=== PATIENT | male | born 1955 | race Caucasian/White ===

== ENCOUNTER 2018-01-31 18:44 | Observation (INO) | payer OTHER ==
--- OUTSIDE RECORDS SUMMARY | 2018-01-31 18:47 | XMS REPORT ---
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 Active Problem Unspecified essential hypertension 401.9 Active Problem Unspecified hypothyroidism 244.9 Active Problem Diabetes mellitus without mention 250.00 Active of complication, type II or unspecified type, not stated as uncontrolled Problem Hemorrhage of gastrointestinal 578.9 Active tract, unspecified Problem Low back pain M54.5 Active Problem Diabetes mellitus without mention 250.02 Active of complication, type II or unspecified type, uncontrolled Problem Gastro-esophageal reflux disease K21.0 Active with esophagitis Problem Malignant neoplasm of thyroid 193 Active gland Problem Hyperlipidemia, unspecified E78.5 Active Problem Chronic kidney disease, N18.9 Active unspecified Problem Unspecified superficial injury of S90.921A Active right foot, initial encounter Problem Other cerebrovascular disease I67.89 Active Problem Anxiety disorder, unspecified F41.9 Active Problem Atrial fibrillation 427.31 Active Problem Coronary atherosclerosis of [place] 414.01 Active coronary artery Problem Idiopathic gout, unspecified site M10.00 Active Problem Hyperlipidemia 272.4 Active Problem Persistent atrial fibrillation I48.1 Active Problem Left ventricular failure I50.1 Active Problem Sleep apnea, unspecified G47.30 Active Problem Obstructive sleep apnea (adult) G47.33 Active (pediatric) Problem Hypertrophy (benign) of prostate 600.00 Active without urinary obstruction and other lower urinary tract symptoms [LUTS] Problem Chronic kidney disease, Stage III 585.3 Active (moderate) Problem GERD 530.11 Active Problem Unspecified sleep apnea 780.57 Active Problem Hypothyroidism, unspecified E03.9 Active Problem Chronic kidney disease, stage 3 N18.3 Active (moderate) Problem 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 Problem Type 2 diabetes mellitus with E11.65 Active hyperglycemia Medications Medication Code Code Instructions Start End Status Dosage System Date Date Sotalol HCl [facility] 97276209360 120 MG Orally Active 1 tablet every 12 hrs Allopurinol [facility] 44436718296 100 Once a day August Active TAKE ONE 20, TABLET BY 2018 MOUTH DAILY Cialis [facility] 59206060620 10 MG Orally Active 1 tablet every 24 hrs Escitalopram [facility] 02060317963 20 MG Orally Active TAKE ONE Oxalate Once a day TABLET BY MOUTH DAILY Lexapro [facility] 54410836122 20 Active TAKE ONE TABLET BY MOUTH DAILY Sotalol HCl [facility] 65360103616 80 MG Orally Active TAKE two every 12 hrs TABLET BY MOUTH TWICE A [facility] 10 Active TAKE ONE TABLET BY MOUTH DAILY Allopurinol [facility] 38754406104 100 MG Orally Active 1 tablet Once a day Ramipril [facility] 61340979221 10MG Orally Active TAKE ONE Once a day CAPSULE BY MOUTH DAILY Synthroid [facility] 05094319742 150 MCG Orally Jan 12, Active 1 tablet Once a day [facility] 2015 Protonix [facility] 96717609645 40 MG Active TAKE ONE TABLET BY MOUTH ONE TIME DAILY [facility] 60545861716 10 MG Active TAKE ONE TABLET BY MOUTH DAILY Protonix [facility] 45935719756 40 Active TAKE ONE TABLET BY MOUTH DAILY Ramipril [facility] 16675277250 10 Active TAKE ONE CAPSULE BY MOUTH DAILY Gabapentin [facility] 84721694073 300 MG Orally Active 1 capsule Three times a day Eliquis [facility] 30315014594 5 MG Orally Active not defined Synthroid [facility] 49181237544 175 MCG Orally Active 1 tablet Once a day TTSS Nitroglycerin [facility] 00320889584 0.4 MG Active 1 tablet Sublingual Once under the a day tongue and allow to dissolve as needed Tamsulosin HCl [facility] 53394566452 0.4 MG Orally Active 1 capsule Once a day 30 minutes after the same meal each day Baclofen [facility] 18759740094 10 Active TAKE ONE TABLET BY MOUTH EVERY 6 HOURS NEEDED Levothyroxine [facility] 39376042701 175 Orally Once Active TAKE ONE Sodium a day TABLET BY MOUTH DAILY ON SUNDAY TO SUNDAY AND SUNDAY AND SUNDAY Amlodipine [facility] 62302212463 10 MG Orally Active 1 tablet Besylate Once a day Baclofen [facility] 61645904661 10 MG Active TAKE ONE TABLET BY MOUTH EVERY SIX HOURS NEEDED Atorvastatin [facility] 27924997504 40MG Active TAKE ONE Calcium TABLET BY MOUTH DAILY Chlorthalidone [facility] 75631915180 25 MG Orally Active 1/2 tab Once a day Pantoprazole [facility] 49700434950 40 MG Orally Active 1 tablet Sodium Once a day Clonazepam [facility] 78259992589 2 MG Orally August 31, Active 1 tablet Twice a day 2015 Clonidine HCl [facility] 12676333308 0.1 MG Orally Nov 24, Active 1 tablet tid 2013 Levothyroxine [facility] 54070986699 175 MCG Orally Active 1 tablet Sodium Once a day Cholestyramine [facility] 87111145645 4 GM Orally October 07, Active 1 packet daily 2015 mixed with water or non-carbon ated drink [place] [facility] 36398607467 10-325 MG Nov 13, Active 1 tablet Orally every 6 2015 as needed hrs Flomax [facility] 24891244966 0.4 Active TAKE ONE CAPSULE BY MOUTH DAILY 30 MINUTES BEFORE SAME MEAL Vital Signs Date/Time: Mar 09, 2017 BMI 34.45 Index Weight 247 lbs Height 71 in Respiratory Rate 18 /min Cardiac Monitoring Heart Rate 80 /min Blood Pressure Diastolic 78 mm Hg Blood Pressure Systolic 128 mm Hg Temperature 97.4 F Results No Known Results Summary Purpose eClinicalWorks Submission
--- OUTSIDE RECORDS SUMMARY | 2018-01-31 18:47 | XMS REPORT | Continuity of Care Document ---
:1955 Author Organization Interface Problems Problem Status Onset Classification Date Comments Source Date Reported Idiopathic gout, Active Diagnosis 01/10/2018 Andreas Y unspecified site [place] Gouty arthropathy, Active Problem 01/10/2018 Andreas Y unspecified [place] Unspecified Active Problem 01/10/2018 Andreas Y essential [place] hypertension Unspecified Active Problem 01/10/2018 Andreas Y hypothyroidism [place] Diabetes mellitus Active Problem 01/10/2018 Andreas Y without mention of [place] complication, type II or unspecified type, not stated as uncontrolled Hemorrhage of Active Problem 01/10/2018 Andreas Y gastrointestinal [place] tract, unspecified Low back pain Active Problem 01/10/2018 Andreas Y [place] Diabetes mellitus Active Problem 01/10/2018 Andreas Y without mention of [place] complication, type II or unspecified type, uncontrolled Gastro-esophageal Active Problem 01/10/2018 Andreas Y reflux disease with [place] esophagitis Malignant neoplasm Active Problem 01/10/2018 Andreas Y of thyroid gland [place] Hyperlipidemia, Active Problem 01/10/2018 Andreas Y unspecified [place] Chronic kidney Active Problem 01/10/2018 Andreas Y disease, [place] unspecified Unspecified Active Problem 01/10/2018 Andreas Y superficial injury [place] of right foot, initial encounter Other Active Problem 01/10/2018 Andreas Y cerebrovascular [place] disease Anxiety disorder, Active Problem 01/10/2018 Andreas Y unspecified [place] Atrial fibrillation Active Problem 01/10/2018 Andreas Y [place] Coronary Active Problem 01/10/2018 Andreas Y atherosclerosis of [place] coronary artery Hyperlipidemia Active Problem 01/10/2018 Andreas Y [place] Persistent atrial Active Problem 01/10/2018 Andreas Y fibrillation [place] Left ventricular Active Problem 01/10/2018 Andreas Y failure [place] Sleep apnea, Active Problem 01/10/2018 Andreas Y unspecified [place] Obstructive sleep Active Problem 01/10/2018 Andreas Y apnea (pediatric) [place] Hypertrophy of Active Problem 01/10/2018 Andreas Y prostate without [place] urinary obstruction and other lower urinary tract symptoms [LUTS] Chronic kidney Active Problem 01/10/2018 Andreas Y disease, Stage III [place] GERD Active Problem 01/10/2018 Andreas Y [place] Unspecified sleep Active Problem 01/10/2018 Andreas Y apnea [place] Hypothyroidism, Active Problem 01/10/2018 Andreas Abarca unspecified [place] Chronic kidney Active Diagnosis 01/10/2018 Andreas Y disease, stage 3 [place] Other generalized Active Problem 01/10/2018 Andreas Abarca ischemic [place] cerebrovascular disease Type 2 diabetes Active Diagnosis 01/10/2018 Andreas Abarca mellitus with [facility] hyperglycemia Medications Medication Details Route Status Patient Ordering Order Source Instructions Provider Date Allopurinol TAKE ONE NA Active 100 Once a day [facility] Andreas TABLET BY 018 Y [place]ott MOUTH DAILY Synthroid 1 tablet Orally Active 150 MCG Orally [facility] Andreas Once a day MW 016 [place] 1 tablet Orally Active 10-325 MG [facility] Andreas as needed Orally every 6 016 [place] hrs Cholestyramine 1 packet Orally Active 4 GM Orally [facility] Andreas mixed with daily water or non-carbon ated drink Clonazepam 1 tablet Orally Active 2 MG Orally [facility] Andreas Twice a day Clonidine HCl 1 tablet Orally Active 0.1 MG Orally [facility] Andreas tid 014 Y [place] Escitalopram TAKE ONE Orally Active 20 MG Orally Rivera Andreas Oxalate TABLET BY Once a day Y [place] MOUTH DAILY Amlodipine 1 tablet Orally Active 10 MG Orally Rivera Andreas Besylate Once a day Baclofen TAKE ONE NA Active 10 MG Rivera Andreas TABLET BY [place]ott MOUTH EVERY SIX HOURS NEEDED Levothyroxine TAKE ONE Orally Active 175 Orally Rivera Andreas Sodium TABLET BY Once a day [place] MOUTH DAILY ON SUNDAY TO SUNDAY AND SUNDAY AND SUNDAY Ramipril TAKE ONE Orally Active 10MG Orally Rivera Andreas CAPSULE BY Once a day [place] MOUTH DAILY Pantoprazole 1 tablet Orally Active 40 MG Orally Rivera Andreas Sodium Once a day Sotalol HCl 1 tablet Orally Active 120 MG Orally Rivera Andreas every 12 hrs [place] Cialis 1 tablet Orally Active 10 MG Orally Rivera Andreas every 24 hrs [place]ott Lexapro TAKE ONE NA Active 20 Rivera Andreas TABLET BY Y [place] MOUTH DAILY Sotalol HCl TAKE two Orally Active 80 MG Orally Rivera Andreas TABLET BY every 12 hrs Y [place]ott MOUTH TWICE A DAY Norvasc TAKE ONE NA Active 10 Rivera Andreas TABLET BY Y [place] MOUTH DAILY Allopurinol 1 tablet Orally Active 100 MG Orally Rivera Andreas Once a day [place] Protonix TAKE ONE NA Active 40 MG Rivera Andreas TABLET BY Y [place] MOUTH ONE TIME DAILY Ramipril TAKE ONE NA Active 10 Rivera Andreas CAPSULE BY Y [place]ott MOUTH DAILY Gabapentin 1 capsule Orally Active 300 MG Orally Miguel Andreas Three times a Y Lott day Eliquis not Orally Active 5 MG Orally Miguel Andreas defined Y [place] Synthroid 1 tablet Orally Active 175 MCG Orally Rivera Andreas Once a day [place]ott TTSS Nitroglycerin 1 tablet Sublingual Active 0.4 MG Miguel Andreas under the Sublingual Y Oren tongue and Once a day allow to dissolve as needed Tamsulosin HCl 1 capsule Orally Active 0.4 MG Orally Miguel Andreas 30 minutes Once a day Y Lott after the same meal each day Baclofen TAKE ONE NA Active 10 Rivera Andreas TABLET BY Y [place]ott MOUTH EVERY 6 HOURS NEEDED Atorvastatin TAKE ONE NA Active 40MG Rivera Andreas Calcium TABLET BY Y [place] MOUTH DAILY Chlorthalidone 1/2 tab Orally Active 25 MG Orally Rivera Andreas Once a day [place] Levothyroxine 1 tablet Orally Active 175 MCG Orally Miguel Andreas Sodium Once a day [place] Flomax TAKE ONE NA Active 0.4 Miguel Andreas CAPSULE BY Y [place]ott MOUTH DAILY 30 MINUTES BEFORE SAME MEAL Allergies, Adverse Reactions, Alerts Substance Category Reaction Severity Reaction Status Date Comments Source type Reported plavix Adverse Info Not Adverse Active Andreas Reaction Available Reaction 7 [place]ott Immunizations Immunization Date Given Site Status Last Updated Comments Source Results Order Results Value Reference Date Interpretation Comments Source Name Range Vital Signs Vital Sign Value Date Comments Source Weight 247 03/09/2017 Andreas [place] Height 71 03/09/2017 Andreas [place] Respitory Rate 18 03/09/2017 Andreas [place] Heart Rate 80 03/09/2017 Andreas Ltot Diastolic (mm Hg) 78 03/09/2017 Andreas [place] Systolic (mm Hg) 128 03/09/2017 Andreas [place] Temperature Oral (F) 97.4 F 03/09/2017 Andreas Ltot Encounters Location Location Encounter Encounter Reason Attending ADM DC Status Source Details Type Number For Provider Date Date Visit Procedures Procedure Code Date Perfomer Comments Source
--- OUTSIDE RECORDS SUMMARY | 2018-01-31 18:47 | XMS REPORT ---
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 Active Problem [...] fibrillation 427.31 Active Problem Coronary atherosclerosis of [place] 414.01 Active coronary artery Problem Idiopathic gout, [...] Start End Status Dosage System Date Date Escitalopram [facility] 01516371332 20 MG Orally Active TAKE ONE Oxalate Once a day TABLET BY MOUTH DAILY Amlodipine [facility] 94359317220 10 MG Orally Active 1 tablet Besylate Once a day Baclofen [facility] 51598082055 10 MG Orally Active TAKE ONE every 8 hrs prn TABLET BY MOUTH EVERY SIX HOURS NEEDED Levothyroxine [facility] 44970444221 175 Orally Once Active TAKE ONE Sodium a day TABLET BY MOUTH DAILY ON SUNDAY TO SUNDAY AND SUNDAY AND SUNDAY Ramipril [facility] 31183176869 10MG Orally Active TAKE ONE Once a day CAPSULE BY MOUTH DAILY Pantoprazole [facility] 85125722869 40 MG Orally Active 1 tablet Sodium Once a day Allopurinol [facility] 16660479820 100 Orally Once August Active TAKE ONE a day 20, TABLET BY 2018 MOUTH DAILY Results No Known Results Summary Purpose eClinicalWorks Submission
[2018-01-31 20:50] LABS: Absolute Lymphocytes (CBC) 0.7 K/uL (0.7-4.9); Absolute Monocytes 0.6 K/uL (0.1-1.3); Absolute Neutrophil 5.9 K/uL (1.8-8.0); Basophils % 0.8 % (0-1.3); Eosinophils % 2.6 % (0-4.4); MCH 25.5 pg (27.0-35.0); MCV 79.3 fL (80-100); MPV 8.8 fL (7.6-11.3); Monocytes % 8.5 % (3.3-12.3); RBC Red Blood Cell Count 4.04 M/uL (4.33-5.43)
[2018-01-31 20:55] LABS: Protime INR 1.28
--- NOTE | 2018-01-31 20:55 | RAD REPORT ---
EXAM DESCRIPTION: RAD - Chest Single View - 01/31/2018 8:49 pm CLINICAL HISTORY: DYSPNEA Chest pain. COMPARISON: Chest Single View dated 03/17/2017; Chest Single View dated 03/15/2017; Chest Single Vie w dated 03/14/2017; Chest Pa And Lat (2 Views) dated 01/04/2016 FINDINGS: Portable technique limits examination quality. Mild to moderate bilateral pulmonary edema is present. The heart is prominent in size with a dual abad d pacer device. No displaced fractures. IMPRESSION: Mild CHF versus volume overload pattern suspected.
[2018-01-31 21:09] LABS: ALT/SGPT 50 U/L (12-78); AST/SGOT 28 U/L (15-37); Alkaline Phosphatase 122 U/L (45-117); BUN Blood Urea Nitrogen 17 mg/dL (7-18); Bicarbonate 28 mmol/L (21-32); Bilirubin Direct 0.3 mg/dL (0-0.2); Bilirubin Total 0.9 mg/dL (0.2-1.0); Glucose Level 101 mg/dL (74-106); Magnesium 2.3 mg/dL (1.8-2.4); NT PRO-BNP 3665 pg/mL (<125); Potassium 4.2 mmol/L (3.5-5.1); Protein, Total 6.9 g/dL (6.4-8.2); Sodium Level 141 mmol/L (136-145); Troponin (Emerg Dept Use Only) < 0.02 ng/mL (0.0-0.045)
[2018-01-31] MEDS ORDERED: ALBUTEROL 2.5 MG/3 ML NEB SOL ONE (21:30)
[2018-01-31] MEDS ORDERED: IPRATROPIUM BROM 0.5MG/2.5ML ONE (21:31)
--- NOTE | 2018-01-31 22:02 | RAD REPORT ---
EXAM DESCRIPTION: CT - Chest For Pe Angio - 01/31/2018 9:44 pm CLINICAL HISTORY: Chest pain. SHORTNESS OF BREATH COMPARISON: Thorax Wo Con dated 03/15/2017 TECHNIQUE: CT angiogram of the pulmonary arteries was performed with MIP. All CT scans are performed using dose optimization technique as appropriate and may include automated exposure control or mA/KV adjustment according to patient size. FINDINGS: The study is mildly limited by respiratory motion artifact. No evidence of pulmonary thromboembolism. Pacemaker wiring is noted. No acute aortic finding demonstrated. Bilateral pulmonary opacities are noted suspected to represent pulmonary edema. Linear atelectasis is also present the left lung base. Small bilateral pleural effusions are evident. No concerning bony finding. IMPRESSION: No evidence of pulmonary thromboembolism. Mild pulmonary edema is suspected with small bilateral pleural effusions, favoring CHF versus volume overload. Subsegmental atelectasis is also present in left lung base.
--- NOTE | 2018-01-31 22:11 | ER ---
Nurse's Notes [facility] Name: Ángel Haddad Age: 63 yrs Sex: Male : 1955 Arrival Date: 01/31/2018 Time: 19:02 Bed 24 Private MD: Diagnosis: Pulmonary edema Presentation: 01/31 19:02 Presenting complaint: Patient states: shortness of breath started this afternoon, had tl3 bilateral hernia repair on Sunday and [place] [facility] Transition of care: patient was not received from another setting of care. Onset of symptoms was January 31, 2018. 19:02 Method Of Arrival: Ambulatory tl3 19:02 Risk Assessment: Do you want to hurt yourself or someone else? Patient reports no tl3 desire to harm self or others. Initial Sepsis Screen: Does the patient meet any 2 criteria? No. Patient's initial sepsis screen is negative. Does the patient have a suspected source of infection? No. Patient's initial sepsis screen is negative. Care prior to arrival: None. 19:02 Acuity: MARGO 3 tl3 Triage Assessment: 19:12 General: Appears uncomfortable, slender, well groomed, well developed, well nourished, tl3 Behavior is calm, cooperative, appropriate for age. Pain: Complains of pain in chest. EENT: No signs and/or symptoms were reported regarding the EENT system. Neuro: Level of Consciousness is awake, alert, obeys commands. Cardiovascular: Heart tones S1 S2 present Patient's skin is warm and dry. Respiratory: Reports shortness of breath Airway is patent Respiratory effort is even, labored, Respiratory pattern is regular, tachypnea Onset: The symptoms/episode began/occurred this morning, the patient has moderate shortness of breath. GI: No signs and/or symptoms were reported involving the gastrointestinal system. : No signs and/or symptoms were reported regarding the genitourinary system. Historical: - Allergies: 19:12 apixaban; tl3 19:12 clopidogrel; tl3 19:12 tramadol; tl3 - Home Meds: 19:12 sotalol 80 mg Oral tab 1 tab 2 times per day [Active]; Norvasc 5 mg Oral tab [Active]; tl3 Verapamil Oral [Active]; 02/01 00:33 tamsulosin oral oral [Active]; tl3 - Immunization history:: Adult Immunizations up to date. - Social history:: Smoking status: unknown. - Ebola Screening: : No symptoms or risks identified at this time. Screenin/15 20:47 Abuse screen: Denies threats or abuse. Nutritional screening: No deficits noted. tl3 Tuberculosis screening: No symptoms or risk factors identified. Fall Risk None identified. Assessment: 20:47 Reassessment: No changes from previously documented assessment. Patient and/or family tl3 updated on plan of care and expected duration. Pain level reassessed. Patient is alert, oriented x 3, equal unlabored respirations, skin warm/dry/pink. Cardiovascular: Rhythm is regular. Respiratory: Airway is patent Respiratory effort is even, labored, Respiratory pattern is regular, symmetrical, tachypnea Breath sounds are clear bilaterally. Breath sounds are diminished bilaterally. in left lower lobe, right lower lobe, left posterior lower lobe and right posterior lower lobe. 22:49 Reassessment: No changes from previously documented assessment. Patient and/or family tl3 updated on plan of care and expected duration. Pain level reassessed. Patient is alert, oriented x 3, equal unlabored respirations, skin warm/dry/pink. pt tolerated rodriguez well, awaiting room assignment. 02/01 00:28 Reassessment: No changes from previously documented assessment. Patient and/or family tl3 updated on plan of care and expected duration. Pain level reassessed. Patient is alert, oriented x 3, equal unlabored respirations, skin warm/dry/pink. pt O2 sat improving, removed 2200 ml of urine so far. Vital Signs: 01/31 19:12 BP 141 / 83; Pulse 87; Resp 20; Temp 98.0(O); Pulse Ox 92% on R/A; tl3 20:47 BP 154 / 90; Pulse 83; Resp 20; Pulse Ox 96% on 2 lpm NC; tl3 22:49 BP 155 / 98; Pulse 89; Resp 18; Pulse Ox 94% on 3 lpm NC; tl3 16 00:28 BP 122 / 90; Pulse 90; Resp 18; Pulse Ox 97% on 3 lpm NC; tl3 ED Course: 01/31 19:02 Patient arrived in ED. tl3 19:04 Triage completed. tl3 19:12 Arm band placed on right wrist. tl3 20:08 Demetrice, Ivana, RN is Primary Nurse. tl3 20:29 Denzel Jarvis PA is PHCP. [facility] 20:30 Chirag Cueto MD is Attending Physician. jmm 20:37 Basic Metabolic Panel Sent. tl3 20:46 XRAY Chest (1 view) Sent. tl3 20:47 Patient has correct armband on for positive identification. Bed in low position. Call tl3 light in reach. Side rails up X 1. Pulse ox on. NIBP on. 20:47 No provider procedures requiring assistance completed. Initial lab(s) drawn, by ar, tl3 sent to lab. Inserted saline lock: 20 gauge in left forearm, using aseptic technique. Blood collected. 20:48 XRAY Chest (1 view) In Process Unspecified. EDMS 21:[address] nj 21:44 CT completed. Patient tolerated procedure well. Patient moved back from CT. nj 21:45 Patient taken to ultrasound. nj 22:09 Juliana Ta MD is Hospitalizing Provider. jm 22:14 CT Chest For PE Angio In Process Unspecified. EDMS 22:18 US Extremity Venous W Compression Jorge In Process Unspecified. EDMS 02/01 00:28 Patient admitted, IV remains in place. tl3 Administered Medications: 01/31 21:19 Drug: DuoNeb (3:1) (2.5 mg - 0.5 mg) 3 ml Route: Nebulizer; tl3 22:55 Follow up: Response: No adverse reaction tl3 22:49 Drug: Lasix 80 mg Route: IVP; Infused Over: 2 mins; Site: left antecubital; tl3 02/01 00:30 Follow up: Response: No adverse reaction tl3 Output: 00:28 Urine: 2200ml (Rodriguez); Total: 2200ml. tl3 Outcome: 01/31 22:10 Decision to Hospitalize by Provider. [facility] 02/01 00:48 Admitted to Med/surg accompanied by tech, via stretcher, with chart, Report called to tl3 Maliha ROBERSON Condition: improved Instructed on the need for admit, Demonstrated understanding of instructions. 00:51 Patient left the ED. tl3 Signatures: Dispatcher [employer] EDMI Denzel Jarvis PA PA [place] Ivana Suresh, RN RN tl3
--- NOTE | 2018-01-31 22:11 | EDPHYS ---
Physician Documentation [facility] Name: Ángel Haddad Age: 63 yrs Sex: Male : 1955 Arrival Date: 01/31/2018 Time: 19:02 Bed 24 Private MD: ED Physician Chirag Cueto HPI: 01/31 20:41 This 63 yrs old Male presents to ER via Ambulatory with complaints of jmm Shortness Of Breath. 20:41 The patient has shortness of breath at rest. Onset: The symptoms/episode began/occurred jmm gradually, 2 day(s) ago. Associated signs and symptoms:. This is a 63 year old male with a history of CAD, CVA that presents to the ED with shortness of breath. Patient states he had a hernia repair performed this past Sunday. Patient states he was concerned he may have developed pneumonia. Patient states shortness of breath is worsened on exertion. . Historical: - Allergies: 19:12 apixaban; tl3 19:12 clopidogrel; tl3 19:12 tramadol; tl3 - Home Meds: 19:12 sotalol 80 mg Oral tab 1 tab 2 times per day [Active]; Norvasc 5 mg Oral tab [Active]; tl3 Verapamil Oral [Active]; 02/01 00:33 tamsulosin oral oral [Active]; tl3 - Immunization history:: Adult Immunizations up to date. - Social history:: Smoking status: unknown. - Ebola Screening: : No symptoms or risks identified at this time. ROS: 01/31 22:00 Constitutional: Negative for fever, chills, and weight loss, Cardiovascular: Negative jmm for chest pain, palpitations, and edema. Abdomen/GI: Negative for abdominal pain, nausea, vomiting, diarrhea, and constipation, Back: Negative for injury and pain, : Negative for injury, bleeding, discharge, and swelling, MS/Extremity: Negative for injury and deformity, Skin: Negative for injury, rash, and discoloration, Neuro: Negative for headache, weakness, numbness, tingling, and seizure. Respiratory: Positive for shortness of breath. All other systems are negative. Exam: 22:00 Constitutional: This is a well developed, well nourished patient who is awake, alert, jmm and in no acute distress. Head/Face: atraumatic. Chest/axilla: Normal chest wall appearance and motion. 22:00 Cardiovascular: Rate: normal, Rhythm: regular. 22:00 Respiratory: mild respiratory distress is noted, Respirations: normal. 22:00 Abdomen/GI: Inspection: abdomen appears normal, Bowel sounds: normal, Palpation: abdomen is soft and non-tender. 22:00 Back: ROM is normal. 22:00 Musculoskeletal/extremity: ROM: intact in all extremities. 22:00 Skin: Appearance: Color: normal in color. 22:00 Neuro: Orientation: is normal, Mentation: is normal, Memory: is normal. 22:00 Psych: Behavior/mood is pleasant, cooperative. Vital Signs: 19:12 BP 141 / 83; Pulse 87; Resp 20; Temp 98.0(O); Pulse Ox 92% on R/A; tl3 20:47 BP 154 / 90; Pulse 83; Resp 20; Pulse Ox 96% on 2 lpm NC; tl3 22:49 BP 155 / 98; Pulse 89; Resp 18; Pulse Ox 94% on 3 lpm NC; tl3 02/01 00:28 BP 122 / 90; Pulse 90; Resp 18; Pulse Ox 97% on 3 lpm NC; tl3 MDM: 01/31 20:41 Patient medically screened. [facility] 22:03 Data reviewed: vital signs, nurses notes, lab test result(s), radiologic studies, plain jmm films. ED course: I discussed the patient with Dr. Ta whom accepted admission. . 01/31 20:26 Order name: Basic Metabolic Panel [facility] 01/31 20:26 Order name: CBC with Diff; Complete Time: 20:55 aa 01/31 20:26 Order name: LFT's; Complete Time: 21:10 aa1 01/31 20:26 Order name: Magnesium; Complete Time: 21:10 aa 01/31 20:26 Order name: NT PRO-BNP; Complete Time: 21:10 aa 01/31 20:26 Order name: PT-INR; Complete Time: 21:00 aa 01/31 20:26 Order name: Troponin (emerg Dept Use Only); Complete Time: 21:10 aa 01/31 20:26 Order name: XRAY Chest (1 view); Complete Time: 20:55 [facility] 01/31 20:28 Order name: Basic Metabolic Panel; Complete Time: 21:10 EDMS 01/31 20:42 Order name: PTT, Activated Partial Thromb; Complete Time: 21:00 [facility] 01/31 20:26 Order name: EKG; Complete Time: 20:28 [facility] 01/31 20:26 Order name: Cardiac monitoring; Complete Time: 20:36 [facility] 01/31 20:26 Order name: EKG - Nurse/Tech; Complete Time: 20:36 [facility] 01/31 20:26 Order name: IV Saline Lock; Complete Time: 20:36 [facility] 01/31 20:26 Order name: Labs collected and sent; Complete Time: 20:37 [facility] 01/31 20:26 Order name: O2 Per Protocol; Complete Time: 20:37 [facility] 01/31 20:27 Order name: O2 Sat Monitoring; Complete Time: 20:28 [facility] 01/31 21:17 Order name: CT Chest For PE Angio; Complete Time: 14:45 [facility] 01/31 21:17 Order name: US Extremity Venous W Compression Jorge; Complete Time: 14:45 [facility] 01/31 22:10 Order name: Cavanaugh; Complete Time: 22:49 [facility] Administered Medications: 21:19 Drug: DuoNeb (3:1) (2.5 mg - 0.5 mg) 3 ml Route: Nebulizer; tl3 22:55 Follow up: Response: No adverse reaction tl3 22:49 Drug: Lasix 80 mg Route: IVP; Infused Over: 2 mins; Site: left antecubital; tl3 02/01 00:30 Follow up: Response: No adverse reaction tl3 Disposition: 01/31/18 22:10 Hospitalization ordered by Juliana Ta for Inpatient Admission. Preliminary diagnosis is Pulmonary edema. - Bed requested for Telemetry/MedSurg (Inpatient). - Status is Inpatient Admission. tl3 - Condition is Stable. - Problem is new. - Symptoms are unchanged. UTI on Admission? No Addendum: 02/04/2018 06:53 Co-signature as Attending Physician, Chirag Cueto MD I agree with the assessment and c ariza plan of care. Signatures: Dispatcher [employer] EDMS Anne Ruby RN RN kl Kern, Alissa, RN RN aa1 Chirag Cueto MD MD cha Mickail, Joel, PA PA jmm O'Kean, Ivana, RN RN tl3 Corrections: (The following items were deleted from the chart) 01/31 20:43 20:29 CBC+H.LAB.BRZ ordered. [facility] EDMN 20:43 20:29 BASIC METABOLIC PANEL+C.LAB.BRZ ordered. [facility] 20:43 20:29 PROBNP+C.LAB.BRZ ordered. [facility] 20:43 20:29 PTT, ACTIVATED+COAG.LAB.BRZ ordered. [facility] 02/01 00:29 01/31 22:10 Hospitalization Ordered by Juliana Ta MD for Inpatient Admission. kl Preliminary diagnosis is Pulmonary edema. Bed requested for Telemetry/MedSurg (Inpatient). Status is Inpatient Admission. Condition is Stable. Problem is new. Symptoms are unchanged. UTI on Admission? No. [facility] 02/01 00:51 00:29 01/31/2018 22:10 Hospitalization Ordered by Juliana Ta MD for Inpatient tl3 Admission. Preliminary diagnosis is Pulmonary edema. Bed requested for Telemetry/MedSurg (Inpatient). Status is Inpatient Admission. Condition is Stable. Problem is new. Symptoms are unchanged. UTI on Admission? No. kl
--- NOTE | 2018-01-31 22:22 | RAD REPORT ---
EXAM DESCRIPTION: US - Extrem Venous W Compress Jorge - 01/31/2018 10:10 pm CLINICAL HISTORY: RECENT SURGERY Bilateral leg edema and swelling. COMPARISON: No comparisons TECHNIQUE: Real-time sonographic interrogation of the left and right lower extremity deep venous sys tems was performed. FINDINGS: Normal compressibility, flow augmentation, phasic flow and spontaneous flow is identified in both the left and right lower extremity deep venous systems. IMPRESSION: No sonographic evidence of left or right lower extremity deep venous thrombosis.
[2018-01-31] MEDS ORDERED: FUROSEMIDE 40 MG/4 ML VIAL ONE ×2 (22:40→22:53)
[2018-01-31] MEDS ORDERED: ONDANSETRON 4 MG/2 ML VIAL IV PRN (23:53)
[2018-02-01] MEDS: ACETAMINOPHEN 500 MG TAB PO PRN ×2 (01:59→21:55)
--- NOTE | 2018-02-01 03:46 | P.HP ---
Certification for Inpatient Patient admitted to: Observation With expected LOS: <2 Midnights Practitioner: I am a practitioner with admitting privileges, knowledge of patient current condition, hospital course, and medical plan of care. Services: Services provided to patient in accordance with Admission requirements found in Title 42 Section 412.3 of the Code of Federal Regulations Patient History Date of Service: 01/31/18 Reason for admission: Pulmonary edema History of Present Illness: Mr Haddad 63-year-old male with history of multiple medical problems including coronary artery since, hypertension, chronic atrial fibrillation status post pacemaker placement, who had recently a ventral hernia repair MD Cueto, released 2 days ago. He came to ER complaining of progressive shortness of breath, associated with dry cough. He denied any fever or chills. No chest pain reported either. Lab work remarkable for normal WBC count, creatinine 1.4 , pro BNP 3665. Chest-x-ray shows bilateral infiltrate consistent with pulmonary edema. No fever in ED. Allergies apixaban [From Eliquis] Allergy (Severe, Verified 02/01/18 01:59) Itching/Hives/Rash tramadol Allergy (Severe, Verified 02/01/18 01:59) Nausea/Vomiting clopidogrel [From Plavix] Allergy (Intermediate, Verified 02/01/18 01:59) Itching/Hives/Rash dabigatran etexilate [From Pradaxa] Allergy (Verified 02/01/18 01:59) Hives/Rash Adhesives Allergy (Severe, Uncoded 02/01/18 01:59) Hives/Rash Home medications list reviewed: Yes Home Medications: Levothyroxine Sodium [Synthroid] 150 mcg PO DAILY 01/03/16 Pantoprazole [Protonix Tab*] 40 mg PO DAILY 01/03/16 Sotalol HCl [Sotalol] 80 mg PO DAILY 01/03/16 Tamsulosin [Flomax*] 0.4 mg PO BEDTIME 01/03/16 Atorvastatin Calcium [Lipitor*] 20 mg PO BEDTIME #30 tab 01/04/16 Amlodipine [Norvasc*] 5 mg PO DAILY 02/01/18 - Past Medical/Surgical History Diabetic: No -: 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 eye surgery -: heart stents -: Hernia repair -: thyroid surgery -: Nerve re-channeling to R. arm -: apendectomy -: pacemaker - Family History Father -: Heart disease, Kidney disease Notes: sacoidosis Mother -: Heart disease Notes: dementia, alzheimers Brother -: Heart disease, Stroke - Social History Smoking Status: Never smoker Alcohol use: No CD- Drugs: No Caffeine use: No Place of Residence: Home Review of Systems 10-point ROS is otherwise unremarkable Physical Examination - Vital Signs Temperature: 97.7 F Blood Pressure: 143/84 Pulse: 99 Respirations: 20 Pulse Ox (%): 90 - Physical Exam General: Alert, In no apparent distress HEENT: Atraumatic, PERRLA, Mucous membr. moist/pink, EOMI, Sclerae nonicteric Neck: Supple, 2+ carotid pulse no bruit, No LAD, Without JVD or thyroid abnormality Respiratory: Normal air movement, Crackles/rales (Bibasilar rales) Cardiovascular: Regular rate/rhythm (Pacemaker rhythm), Normal S1 S2 Gastrointestinal: Normal bowel sounds, No tenderness Musculoskeletal: No tenderness Integumentary: No rashes, Other (Surgical wound healing without obvious secretions coming out.) Neurological: Normal speech, Normal strength at 5/5 x4 extr, Normal tone, Normal affect Lymphatics: No axilla or inguinal lymphadenopathy - Studies Laboratory Data (last 24 hrs) 01/31/18 20:34: PT 15.1 H, INR 1.28, APTT 34.1 01/31/18 20:34: WBC 7.4, Hgb 10.3 L, Hct 32.0 L, Plt Count 154 01/31/18 20:34: Sodium 141, Potassium 4.2, BUN 17, Creatinine 1.40 H, Glucose 101, Magnesium 2.3, Total Bilirubin 0.9, AST 28, ALT 50, Alkaline Phosphatase 122 H 01/31/18 20:27: APTT Cancelled 01/31/18 20:27: Sodium Cancelled, Potassium Cancelled, BUN Cancelled, Creatinine Cancelled, Glucose Cancelled 01/31/18 20:27: WBC Cancelled, Hgb Cancelled, Hct Cancelled, Plt Count Cancelled Assessment and Plan - Problems (Diagnosis) (1) Pulmonary edema Current Visit: Yes Status: Acute Qualifiers: Chronicity: acute Qualified Code(s): J81.0 - Acute pulmonary edema (2) Acute on chronic diastolic CHF (congestive heart failure) Current Visit: Yes Status: Acute (3) Atrial fibrillation Onset Date: 03/15/17 Current Visit: No Status: Chronic Qualifiers: Atrial fibrillation type: chronic (4) Chronic renal disease Onset Date: 03/15/17 Current Visit: No Status: Chronic Qualifiers: Chronic kidney disease stage: unspecified stage Qualified Code(s): N18.9 - Chronic kidney disease, unspecified (5) Hypothyroidism Current Visit: No Status: Chronic Qualifiers: Hypothyroidism type: unspecified Qualified Code(s): E03.9 - Hypothyroidism , unspecified - Plan The patient will be admitted to the hospital due to pulmonary edema. That could be secondary to fluid overload during his recent admission due to ventral hernia repair. Will order IV Lasix, tight control of in and outs. Order new echocardiogram, cardiology consult for evaluation recommendation. - Advance Directives Does patient have a Living Will: Yes Does patient have a Durable POA for Healthcare: No - Code Status/Comfort Care Code Status Assessed: Yes Code Status: Full Code
[2018-02-01 05:07] LABS: Absolute Lymphocytes (CBC) 0.8 K/uL (0.7-4.9); Absolute Monocytes 0.5 K/uL (0.1-1.3); Absolute Neutrophil 5.3 K/uL (1.8-8.0); Basophils % 0.7 % (0-1.3); Eosinophils % 2.9 % (0-4.4); Hematocrit 31.2 % (39.6-49.0); Lymphocytes % 11.2 % (15.3-44.8); MCV 79.4 fL (80-100); MPV 8.8 fL (7.6-11.3); Monocytes % 6.9 % (3.3-12.3); RBC Red Blood Cell Count 3.94 M/uL (4.33-5.43)
[2018-02-01 05:21] LABS: Potassium 3.5 mmol/L (3.5-5.1)
--- NOTE | 2018-02-01 07:06 | EKG ---
Test Date: 2018-01-31 Test Time: 20:40:48 Sammying Machine Operator: TL MEASUREMENT RESULTS: Intervals: Rate: 90 WI: 264 QRSD: 100 QT: 380 QTc: 464 Portal: P: 60 WI: 264 QRS: 5 T: 149 INTERPRETIVE STATEMENTS: Atrial-paced rhythm with prolonged AV conduction Anterior infarct, age undetermined ST & T wave abnormality, consider lateral ischemia Abnormal ECG Compared to ECG 03/14/2017 21:02:40 No significant changes Electronically Signed On 02-01-18 07:05:26 FARM EQUIPMENT SERVICE TECHNICIAN by Ron Brink
[2018-02-01] MEDS ORDERED: INSULIN -REGULAR HUMAN 50 UNIT/0.5 ML ML SQ SCH (07:30)
[2018-02-01] MEDS: FUROSEMIDE 40 MG/4 ML VIAL IV SCH ×2 (08:47→17:45)
[2018-02-01] MEDS: ENOXAPARIN 40 MG/0.4 ML SQ SCH (08:47)
[2018-02-01] MEDS ORDERED: POTASSIUM CL SA 10 MEQ TAB PO ONE (09:00)
--- NOTE | 2018-02-01 13:01 | EKG ---
Test Date: 2018-01-31 Test Time: 20:42:29 Time Broker: TL MEASUREMENT RESULTS: Intervals: Rate: 85 OK: 244 QRSD: 102 QT: 374 QTc: 445 Gates: P: 71 OK: 244 QRS: 16 T: 142 INTERPRETIVE STATEMENTS: Atrial-paced rhythm with prolonged AV conduction Possible Anterior infarct, age undetermined ST & T wave abnormality, consider lateral ischemia Abnormal ECG Compared to ECG 01/31/2018 20:40:48 No significant changes Electronically Signed On 02-01-18 13:00:29 HOSPITAL ORDERLY by Ron Brink
--- NOTE | 2018-02-01 14:43 | ECHO ---
HEIGHT: 6 ft 2 in WEIGHT: 229 lb 12.8 oz DATE OF STUDY: 02/01/[address]: 2-DIMENSIONAL: YES M.MODE: YES DOPPLER: YES COLOR FLOW: YES TDS: NO PORTABLE: NO DEFINITY: NO BUBBLE STUDY: NO DIAGNOSIS: CONGESTIVE HEART FAILURE CARDIAC HISTORY: CATHERIZATION: YES SURGERY: NO PROSTHETIC VALVE: NO PACEMAKER: YES MEASUREMENTS (cm) DIASTOLIC (NORMALS) SYSTOLIC (NORMALS) IVSd 1.3 (0.6-1.2) LA Diam 4.1 (1.9-4.0) LVEF 69% LVIDd 4.8 (3.5-5.7) LVIDs 2.9 (2.0-3.5) %FS 39% LVPWd 1.3 (0.6-1.2) Ao Diam 2.9 (2.0-3.7) 2 DIMENSIONAL ASSESSMENT: RIGHT ATRIUM: NORMAL LEFT ATRIUM: DILATED RIGHT VENTRICLE: PACEMAKER CATHETER LEFT VENTRICLE: LEFT VENTRICULAR HYPERTROPHY TRICUSPID VALVE: NORMAL MITRAL VALVE: NORMAL PULMONIC VALVE: NORMAL AORTIC VALVE: NORMAL PERICARDIAL EFFUSION: NONE AORTIC ROOT: NORMAL LEFT VENTRICULAR WALL MOTION: NORMAL. DOPPLER/COLOR FLOW: MILD TRICUSPID REGURGITATION. NORMAL RIGHT VENTRICULAR SYSTOLIC PRESSURE. COMMENTS: NORMAL LEFT VENTRICULAR EJECTION FRACTION. DILATED LEFT ATRIUM. LEFT VENTRICULAR HYPERTROPHY. PACEMAKER CATHETER IN RIGHT VENTRICLE. MILD TRICUSPID REGURGITATION. TECHNOLOGIST: SARA BETTENCOURT
--- NOTE | 2018-02-01 18:05 | CON ---
History Of Present Illness: Mr. Haddad is a gentleman, who came to the hospital with signs, symptoms , x-ray findings consistent with congestive heart failure. He has a history of heart failure with no rmal ejection fraction. He has a pacemaker. He has had a lot of experience with atrial fib. Presen tly, he takes sotalol 80 mg twice a day, Flomax, Protonix, levothyroxine, atorvastatin, amlodipine. About 5 days before admission, he underwent surgery to repair a ventral hernia and became progressive ly more short of breath with each day, noticed he was gaining weight. He had orthopnea and pedal moise ma. Since he has been in the hospital, he has been receiving Lasix intravenously and his breathing i s getting better. An echocardiogram reveals normal ejection fraction. He has a pacemaker that is pa cing the atrium, sensing normal activity in the ventricle. There is no evidence of myocardial infarc tion, injury, or ischemia. He is allergic to apixaban, tramadol, clopidogrel, dabigatran, and adhesi ves. Physical Examination: General: He is 63-year-old, alert, oriented, 6 feet 2 inch, 229 pounds. HEENT: Normal. Lungs: Cl ear. Heart: Regular rate and rhythm. No significant murmur. Abdomen: Soft. Extremities: Mild e sudarshan. The chest x-ray reveals pulmonary edema. Echocardiogram from about 10 months ago reveals normal ejec tion fraction, dilated left atrium. Pacemaker in the RV was noted. Impression: The patient became volume overloaded. He probably got extra IV fluid and probably had t oo much sodium intake after he went home. Diuresis should get him back initiate and ready to be discharged by tomorrow. He will return to the care of his usual lap maker and electrophysiology ha davila in [place]. CATERINA/NATASHA Voice ID: [id number] Report ID: [id number]
--- NOTE | 2018-02-01 18:08 | PN ---
Date of Progress Note: 02/01/2018 History: The patient seen and examined. Chart reviewed and case discussed with RN. The patient sta shayan he feels significantly better. His breathing has improved. He states his swelling has gone down . Review of Systems: Negative except as above. Medications: List reviewed. Physical Examination: Vital Signs: Temperature 97.8, heart rate 81, blood pressure 114/78, respirations 18, O2 94% on 2 L via nasal cannula. General: Awake, alert, oriented x3. Elderly male, somewhat ill-appearing. CV: S1 and S2. Peripheral pulses present. Regular rate and rhythm. Respiratory: Diminished breath sounds. Some crackles heard. No wheezing or stridor. No use of acc essory muscles. Gastrointestinal: Abdomen is soft, nontender, nondistended. Positive bowel sounds. Extremities: No clubbing, cyanosis. Trace pedal edema. Neuro: Nonfocal. Laboratory Data: Sodium 140, potassium 3.5, chloride 102, CO2 30, BUN 18, creatinine 1.5, glucose 14 7, calcium 8.7. WBC 6.8, H and H 10.2 and 31.2, platelets 163. CT angio chest shows no evidence of PE, mild pulmonary edema suspected with small bilateral pleural e ffusions failing CHF versus volume overload. Subsegmental atelectasis also present in the left lung base. Assessment And Plan: A 63-year-old male with: 1.Acute on chronic diastolic heart failure. We will continue with congestive heart failure guidelin es, beta-lawrence and Lasix and KAYLI inhibitor. We will continue to monitor I's and O's. Strict fluid restriction and daily weights. 2.Atrial fibrillation, chronic, rate controlled. Not on any anticoagulation. 3.Chronic kidney disease, stage 2B. 4.Hypothyroidism. Continue Synthroid. 5.History of thyroid cancer status post radiation therapy. 6.Recent hernia surgery. 7.Gastrointestinal and deep venous thrombosis prophylaxis addressed. 8.Status post pacemaker. 9.Coronary artery disease [place] artery and [place] heart without angina, status post stent. Plan: Resume home medications as appropriate. Follow up with Cardiology recommendation. Will likel y discharge in next 24-48 hours depending on clinical response. /NATASHA Voice ID: [id number] Report ID: [id number]
[2018-02-01] MEDS ORDERED: TAMSULOSIN 0.4 MG SR CAP PO SCH (21:00)
[2018-02-01] MEDS ORDERED: ATORVASTATIN 20 MG TAB PO SCH (21:00)
[2018-02-02 05:19] LABS: Potassium 3.5 mmol/L (3.5-5.1)
[2018-02-02] MEDS ORDERED: LEVOTHYROXINE SOD 0.075 MG TAB PO SCH (06:00)
[2018-02-02] MEDS ORDERED: POTASSIUM 25 MEQ EFFERV TAB PO ONE (06:03)
[2018-02-02] MEDS ORDERED: PANTOPRAZOLE 40MG TABLET PO SCH (07:30)
[2018-02-02] MEDS ORDERED: SOTALOL HCL 80 MG TAB PO SCH (09:00)
[2018-02-02] MEDS ORDERED: AMLODIPINE 5 MG TAB PO SCH (09:00)
[2018-02-02] MEDS: FUROSEMIDE 40 MG/4 ML VIAL IV SCH (09:00)
[2018-02-02] MEDS ORDERED: HOME MED 1 EA UNK (Sotalol Hcl [Sotalol] 80 MG) PO SCH (09:00)
[2018-02-02] MEDS ORDERED: HOME MED 1 EA UNK (Levothyroxine Sodium [Synthroid] 150 MCG) PO SCH (09:00)
[2018-02-02] MEDS: ENOXAPARIN 40 MG/0.4 ML SQ SCH (09:47)
--- NOTE | 2018-02-02 14:25 | PN ---
A 63-year-old man. He has had diuresis. Seems to be doing well. Breathing well. I believe he coul d be discharged home. He has normal ejection fraction. He can continue his present medications. He will need to have his Cavanaugh discontinued, and we will have to document that he can pass water withou t any trouble before his discharge. CATERINA/NATASHA Voice ID: [id number] Report ID: [id number]
[2018-02-02] MEDS ORDERED: FUROSEMIDE 40 MG TABLET PO SCH (17:00)
--- NOTE | 2018-02-03 05:04 | DS ---
Date of Discharge: 02/02/2018 Consultants: Dr. Brink with Cardiology. Admitting Diagnoses: 1.Pgiqa-pb-berxzbw diastolic heart failure. 2.Pulmonary edema. 3.Atrial fibrillation, chronic. 4.Chronic kidney disease. 5.Hypothyroidism. Discharge Diagnoses: 1.Syket-wc-qqgtxxq diastolic heart failure, improved. 2.Atrial fibrillation, chronic, rate controlled, not on anticoagulation. 3.Chronic kidney disease, stage 3. 4.Hypothyroidism, on Synthroid. 5.History of thyroid cancer, status post radiation therapy. 6.Recent hernia surgery. 7.Status post pacemaker. 8.Coronary artery disease, [place] artery and [place] heart without angina, status post stent. Hospital Course: The patient is a 63-year-old male with past medical history of heart disease, hyper tension, atrial fibrillation, pacemaker, and recent ventral hernia repair at [facility], came in wit h shortness of breath and dry cough. The patient's BNP was elevated at 3600. Chest x-ray showed pul monary edema. He was afebrile. No signs of pneumonia. The patient was started on diuresis. He was seen by Dr. Brink, Cardiology. Echocardiogram was done, which showed EF of 69%, did show some dila jasper left atrium, left ventricular hypertrophy, and mild tricuspid regurgitation. The patient overall did well. His symptoms improved. The patient does require oxygen at home. His kidney function did elevate slightly, likely due to diuresis, however, is still at baseline. The patient's symptoms imp roved significantly. He was then doing well. Imaging studies including lower extremity venous Doppl ers were negative. CT angio chest showed mild pulmonary edema with bilateral pleural effusions along with some subsegmental atelectasis. There was no pulmonary embolism found. The patient was then cl eared for discharge in a stable condition. He will follow up with his primary care physician in 2 to 3 days. Follow up with ballet master/mistress in [place] in 2 weeks. Return to ER for worsening condition. Diet: Low sodium. Activity: As tolerated. Medications: As per medication reconciliation list. Physical Examination: General: Awake, alert, oriented x3. No acute distress. Elderly male. CV: S1, S2. No murmurs. Respiratory: Moving air well bilaterally. Gastrointestinal: Abdomen is soft, nontender, nondistended. Positive bowel sounds. Extremities: No clubbing, cyanosis, or edema. Neurologic: Nonfocal. Skin: Surgical incision site of the abdomen is clean, dry, intact. No signs of surrounding erythema . No signs of infection. /NATASHA Voice ID: [id number] Report ID: [id number]
== END 2018-02-02 11:59 | disposition home or self-care (01) ==
LOC: ER 18:44 → ERHOLD 22:25 → 2ND 02-01 00:40
PROVIDERS: ADMIT Internal Medicine; ATTEND Internal Medicine
DX: I13.0 Hypertensive heart and chronic kidney disease with heart failure and stage 1 through stage 4 chronic kidney disease, or unspecified chronic kidney disease (principal); I50.33 Acute on chronic diastolic (congestive) heart failure; N18.3 Chronic kidney disease, stage 3 (moderate); I48.2 Chronic atrial fibrillation; E03.9 Hypothyroidism, unspecified; I25.10 Atherosclerotic heart disease of native coronary artery without angina pectoris; Z95.5 Presence of coronary angioplasty implant and graft; I25.2 Old myocardial infarction; Z85.850 Personal history of malignant neoplasm of thyroid; Z95.0 Presence of cardiac pacemaker
CPT/HCPCS: 36415 ×2; 71045; 71275; 80048 ×3; 80076; 83735; 83880; 84484; 85025 ×2; 85610; 85730; 93005 ×2; 93306; 93970; 94640; 96374; 99285; G0378 ×2; J1650 ×2; J1940 ×5; Q9967

== ENCOUNTER 2018-08-29 15:12 | Emergency (ER) | payer OTHER ==
--- OUTSIDE RECORDS SUMMARY | 2018-08-29 15:17 | XMS REPORT ---
:1955 [facility] Team Providers Name Role Phone Karoline iRvera Provider Role Unavailable Allergies No Known Allergies [...] fibrillation 427.31 Active Problem Coronary atherosclerosis of nez perce 414.01 Active coronary artery Problem Idiopathic gout, [...] End Status Dosage System Date Date Escitalopram [facility] 03206084838 20 MG Orally Active TAKE ONE Oxalate Once a day TABLET BY MOUTH DAILY Amlodipine NDC 38873946609 10 MG Orally Active 1 tablet Besylate Once a day Baclofen [facility] 33801185208 10 MG Orally Active TAKE ONE every 8 hrs prn TABLET BY MOUTH EVERY SIX HOURS NEEDED Levothyroxine [facility] 40013314660 175 Orally Once Active TAKE ONE Sodium a day TABLET BY MOUTH DAILY ON SUNDAY TO SUNDAY AND SUNDAY AND SUNDAY Ramipril [facility] 66938751934 10MG Orally Active TAKE ONE Once a day CAPSULE BY MOUTH DAILY Pantoprazole [facility] 77259860187 40 MG Orally Active 1 tablet Sodium Once a day Allopurinol [facility] 78074125540 100 Orally Once August Active TAKE ONE a day 20, TABLET BY 2018 MOUTH DAILY Results No Known Results Summary Purpose eClinicalWorks Submission
--- OUTSIDE RECORDS SUMMARY | 2018-08-29 15:17 | XMS REPORT | Continuity of Care Document ---
:1955 Author Organization Interface Problems Problem Status Onset Classification Date Comments Source Date Reported BPH Active 03/15/20 Finding 03/17/[address] [facility] [place] Acute respiratory Active 03/15/20 Finding 03/17/[address] [facility] [place] Anemia Active 03/15/20 Finding 03/17/[address] [facility] [place] Atrial fibrillation Active 03/15/20 Finding 03/17/[address] [facility] [place] Depression Active 03/15/20 Finding 03/17/[address] [facility] [place] Hyperlipidemia Active 03/15/20 Finding 03/17/[address] [facility] [place] Chronic renal Active 03/15/20 Finding 03/17/[address] [facility] disease [facility] [place] Abnormal chest Active 03/15/20 Finding 03/17/[address] [facility] [facility] [place] HTN Active 03/15/20 Finding 03/17/[address] [facility] [place] Benign prostatic Active 03/15/20 Finding 03/17/[address] [facility] [address] hyperplasia [facility] [place] Chronic kidney Active 03/15/20 Finding 03/17/[address] [facility] [facility] [place] Hypertension Active 03/15/20 Finding 03/17/[address] [facility] [place] Supratherapeutic Active 01/04/20 Finding 03/17/[address] [address] 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 [facility] right eye [facility] [place] Cerebrovascular Active 01/04/20 Finding 03/17/[address] [facility] [address] accident [facility] [place] Idiopathic gout, Active Diagnosis 01/10/2018 Andreas Abarca unspecified site [place] Gouty arthropathy, Active Problem 01/10/2018 Andreas Y unspecified [place] Unspecified Active Problem 01/10/2018 Andreas Abarca essential [place] hypertension Unspecified Active Problem 01/10/2018 Andreas Y hypothyroidism [place] Diabetes mellitus Active Problem 01/10/2018 Andreas Y without mention of [place] complication, type II or unspecified type, not stated as uncontrolled Hemorrhage of Active Problem 01/10/2018 Andreas Y gastrointestinal [place] tract, unspecified Low back pain Active Problem 01/10/2018 Andreas Y Oren Diabetes mellitus Active Problem 01/10/2018 Andreas Y [...] Problem 01/10/2018 Andreas Y atherosclerosis of [place] coronary artery Hyperlipidemia Active Problem 01/10/2018 Andreas [...] apnea [place] Hypothyroidism, Active Problem 01/10/2018 Andreas Y unspecified [place] Chronic kidney Active Diagnosis 01/10/2018 Andreas Y disease, stage 3 [place] Other generalized Active Problem 01/10/2018 Andreas Y 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 [place] Hypothyroidism Active Finding 03/17/[address] [facility] [place] Renal failure Active Finding 03/17/[address] [facility] [place] Sepsis Active Finding 03/17/[address] [facility] [place] History of CVA Active Finding 03/17/[address] [facility] [place] Pneumonia Active Finding 03/17/[address] [facility] [place] History of stroke Active Finding 03/17/[address] [facility] [place] Medications Medication Details Route Status Patient Ordering Order Source Instructions Provider Date Allopurinol TAKE ONE NA Active 100 Once a Miguel 09/05/ Andreas Abarca TABLET BY day 2017 [place] MOUTH DAILY Amox/Clavulanate TWICE Active Marie [facility] DAILY 2016 [place] [facility] [place] Synthroid 1 tablet Orally Active 150 MCG Miguel Andreas Abarca Orally Once a 2015 MWF Atorvastatin AT BEDTIME Active [facility] Calcium [facility] [place] Amlodipine DAILY Active St[facility] Besylate 2016 [facility] [place] Clonazepam TWICE Active St[facility] DAILY PRN 2015 [facility] [place] Anxiety Tamsulosin AT BEDTIME Active [facility] [place] Hydrocodone/Acet TWICE Active St. aminophen DAILY PRN [facility] - For [facility] [place] Levothyroxine DAILY Active St[facility] Sodium 2016 [facility] [place] Escitalopram DAILY Active [facility] [place] Baclofen THREE Active [facility] TIMES A 2016 - DAY [place] Metoprolol TWICE Active [facility] Tartrate DAILY 2016 [facility] [place] Pantoprazole DAILY Active [facility] [place] Ramipril DAILY Active [facility] [place] Sotalol Hcl TWICE Active St. DAILY 2016 [place] [place] Warfarin Sodium DAILY Active [facility] [place] Allopurinol DAILY Active [facility] [place] 1 tablet Orally Active 10-325 MG Miguel 11/13/ Andreas Abarca as needed Orally every 2015 [place]ott 6 hrs Cholestyramine 1 packet Orally Active 4 GM Orally Miguel Andreas Abarca mixed with daily 2015 [place] water or non-carbon ated drink Clonazepam 1 tablet Orally Active 2 MG Orally Miguel 08/31/ Andreas Y Twice a day 2015 [facility] Clonidine HCl 1 tablet Orally Active 0.1 MG Orally Miguel 11/24/ Andreas Y tid 2013 [facility] Escitalopram TAKE ONE Orally Active 20 MG Orally Rivera Andreas Y Oxalate TABLET BY Once a day [place]ott MOUTH DAILY Amlodipine 1 tablet Orally Active 10 MG Orally Rivera Andreas Y Besylate Once a day [place] Baclofen TAKE ONE NA Active 10 MG Rivera Andreas Y TABLET BY Lott MOUTH EVERY SIX HOURS NEEDED Levothyroxine TAKE ONE Orally Active 175 Orally Rivera Andreas Y Sodium TABLET BY Once a day [place]ott MOUTH DAILY ON SUNDAY TO SUNDAY AND SUNDAY AND SUNDAY Ramipril TAKE ONE Orally Active 10MG Orally Rivera Andreas Y CAPSULE BY Once a day [place]ott MOUTH DAILY Pantoprazole 1 tablet Orally Active 40 MG Orally Rivera Andreas Y Sodium Once a day [facility] Sotalol HCl 1 tablet Orally Active 120 MG Orally Rivera Andreas Y every 12 hrs [place] Cialis 1 tablet Orally Active 10 MG Orally Rivera Andreas Y every 24 hrs [facility] Lexapro TAKE ONE NA Active 20 Rivera Andreas Y TABLET BY [place]ott MOUTH DAILY Sotalol HCl TAKE two Orally Active 80 MG Orally Rivera Andreas Y TABLET BY every 12 hrs [place]ott MOUTH TWICE A DAY Norvasc TAKE ONE NA Active 10 Rivera Andreas Y TABLET BY [place]ott MOUTH DAILY Allopurinol 1 tablet Orally Active 100 MG Orally Rivera Andreas Y Once a day [facility] Protonix TAKE ONE NA Active 40 MG Rivera Andreas Y TABLET BY [place]ott MOUTH ONE TIME DAILY Ramipril TAKE ONE NA Active 10 Rivera Andreas Y CAPSULE BY [place]ott MOUTH DAILY Gabapentin 1 capsule Orally Active 300 MG Orally Rivera Andreas Y Three times a day Eliquis not Orally Active 5 MG Orally Rivera Andreas Y defined [place] Synthroid 1 tablet Orally Active 175 MCG Rivera Andreas Y Orally Once a day TTSS Nitroglycerin 1 tablet Sublingual Active 0.4 MG Rivera Andreas Y under the Sublingual [place] tongue and Once a day allow to dissolve as needed Tamsulosin HCl 1 capsule Orally Active 0.4 MG Orally Rivera Andreas Y 30 minutes Once a day [facility] after the same meal each day Baclofen TAKE ONE NA Active 10 Rivera Andreas Y TABLET BY Lott MOUTH EVERY 6 HOURS NEEDED Atorvastatin TAKE ONE NA Active 40MG Rivera Andreas Y Calcium TABLET BY [place]ott MOUTH DAILY Chlorthalidone 1/2 tab Orally Active 25 MG Orally Rivera Andreas Y Once a day [facility] Levothyroxine 1 tablet Orally Active 175 MCG Rivera Andreas Y Sodium Orally Once a day Flomax TAKE ONE NA Active 0.4 Rivera Andreas Y CAPSULE BY [place]ott MOUTH DAILY 30 MINUTES BEFORE SAME MEAL Allergies, Adverse Reactions, Alerts Substance Category Reaction Severity Reaction Status Date Comments Source type Reported plavix Adverse Info Not Adverse Active Andreas Y Reaction Available Reaction 7 Oren apixaban Itching/Hi Severe Allergy to Active [facility] [place] tramadol Nausea/Vom Severe Allergy to Active [facility] iting Substance [facility] [place] clopidogrel Itching/Hi Moderate Allergy to Active [facility] ves/Rash Substance [facility] [place] Adhesives Hives/Rash Severe Allergy to Active [facility] Substance 7 [facility] [place] Immunizations Immunization Date Given Site Status Last Updated Comments Source Results Order Name Results Value Reference Date Interpretation Comments Source Range Laboratory Vancomycin 17.6 ug/mL 5 - 20 03/[address] [facility] [address] Studies Level Trough [facility] [place] Laboratory Urine Random 60 mg/dl 03/17 St[facility] Total Protein [facility] [place] Laboratory Urine 94.3 mg/dL 03/17 St[facility] Studies Creatinine [facility] [place] Laboratory Magnesium 2.1 mg/dL 1.8 - 2.5 03/17 St[facility] Studies Level /2016 [facility] [place] Laboratory Glucose Level 114 mg/dL 65 - 120 03/17 [facility] [place] Laboratory Estimat 45 mL/min 90 03/[address] [facility] [address] Glomerular /2016 [facility] Filtration [place] Rate Laboratory Creatinine 1.56 mg/dL 0.61 - 03/17. Studies 1. [facility] [place] Laboratory Calcium Level 8.2 mg/dL 8.5 - 10.5 03/17. [facility] [place] Laboratory Blood Urea 38 mg/dL 6 - 20 03/[address] [facility] [address] Studies Nitrogen /2016 [facility] [place] Laboratory Sodium Level 136 mEq/L 135 - 145 03/17 St[facility] /2016 [facility] [place] Laboratory Potassium 3.7 mEq/L 3.6 - 5.0 03/17 St[facility] Studies Level /2016 [facility] [place] Laboratory Chloride 101 mEq/L 101 - 111 03/[address] [facility] [address] Studies /2016 [facility] [place] Laboratory Carbon 27 mEq/L 21 - 31 03/17 [facility] Studies Dioxide Level /2016 [facility] [place] Laboratory White Blood 9.0 K/uL 4.3 - 10.9 03/17 [facility]. Studies Count /2016 [facility] [place] Laboratory Red Cell 17.6 % 12.1 - 03/17 [facility] Studies Distribution 15.2 /2016 [facility] Width [place] Laboratory Red Blood 4.04 M/uL 4.33 - 03/17 [facility]. Studies Count 5.43 /2016 [facility] [place] Laboratory Platelet 186 K/uL 152 - 406 03/17 [facility]. Studies Count /2016 [facility] [place] Laboratory Neutrophils % 83.3 % 41.7 - 03/17 [facility]. Studies 73.7 /2016 [facility] [place] Laboratory Monocytes % 4.2 % 3.3 - 12.3 03/17 [facility]. Studies /2016 [facility] [place] Laboratory Mean Platelet 8.8 fL 7.6 - 11.3 03/17 [facility] Studies Volume /2016 [facility] [place] Laboratory Mean 77.5 fL 80 - 100 03/17 [facility] Studies Corpuscular /2016 [facility] Volume [place] Laboratory Mean 32.0 g/dL 32.0 - 03/17 [facility] Studies Corpuscular 36.0 /2016 [facility] Hemoglobin [place] [facility] Mean 24.8 pg 27.0 - 03/17 [facility] Studies Corpuscular 35.0 [facility] Hemoglobin [place] Laboratory Lymphocytes % 9.6 % 15.3 - 03/17 [facility]. Studies 44.8 /2016 [facility] [place] Laboratory Hemoglobin 10.0 g/dL 13.6 - 03/17 [facility]. Studies 17.9 /2016 [facility] [place] Laboratory Hematocrit 31.3 % 39.6 - 03/17 [facility]. Studies 49.0 /2016 [facility] [place] Laboratory Eosinophils % 2.4 % 0 - 4.4 03/17 [facility]. Studies /2016 [facility] [place] Laboratory Basophils % 0.5 % 0 - 1.3 03/17 [facility]. Studies /2016 [facility] [place] Laboratory Absolute 7.5 K/uL 1.8 - 8.0 03/[address] [facility] [address] Studies Neutrophil [facility] [place] Laboratory Absolute 0.4 K/uL 0.1 - 1.3 03/[address] [facility] [address] Studies Monocytes [facility] (CBC) [place] Laboratory Absolute 0.9 K/uL 0.7 - 4.9 03/[address] [facility] [address] Studies Lymphocytes [facility] (CBC) [place] Laboratory Absolute 0.2 K/uL 0 - 0.5 03/[address] [facility] [address] Studies Eosinophils [facility] - (CBC) [place] Laboratory Absolute 0.0 K/uL 0 - 0.5 03/[address] [facility] [address] Studies Basophils [facility] - (CBC) [place] Laboratory Vitamin B12 171 pg/ml 180 - 914 03/[address] [facility] [address] Studies Level [facility] [place] Laboratory Transferrin % Transferrin 03/[address] [facility] [address] Studies Saturation % [facility] - Saturation [place] Laboratory Transferrin 180 mg/dL 180 - 329 03/[address] [facility] [address] Studies [facility] [place] Laboratory Serum Folate 2.3 ng/ml 5.21 03/[address] [facility] [address] Studies [facility] [place] Laboratory Iron Level null 45 - 182 03/[address] [facility] [address] Studies [facility] [place] Laboratory Ferritin 84.2 ng/ml 23.9 - 03/[address] [facility] [address] Studies 336.2 [facility] [place] Laboratory Total Iron 252 ug/dL 250 - 460 03/[address] [facility] [address] Studies Binding [facility] Capacity [place] Laboratory Urine pH 5.0 03/[address] [facility] [address] Studies [facility] [place] Laboratory Urine White Urine White 03/[address] [facility] [address] Studies Blood Cell Blood Cell /2016 [facility] - Casts Casts [place] Laboratory Urine WBC Urine WBC 03/[address] [facility] [address] Studies [facility] [place] Laboratory Urine 1.0 mg/dL 03/[address] [facility] [address] Studies Urobilinogen /2016 [facility] [place] Laboratory Urine Total Urine Total 03/[address] [facility] [address] Studies Protein Protein [facility] [place] Laboratory Urine Urine 03/[address] [facility] [address] Studies Squamous Squamous /2016 [facility] - Epithelial Epithelial [place] Cells Cells Laboratory Urine 1.020 03/[address] [facility] [address] Studies Specific [facility] [place] Laboratory Urine RBC null 03/[address] [facility] [address] Studies [facility] [place] Laboratory Urine Nitrite Urine 03/[address] [facility] [address] Studies Nitrite /2016 [facility] [place] Laboratory Urine Urine 03/15 [facility]. Studies Leukocyte Leukocyte /2016 [facility] - Esterase Esterase [place] Laboratory Urine Ketones Urine 03/[address] [facility] [address] Studies Ketones /2016 [facility] [place] Laboratory Urine Glucose Urine 03/[address] [facility] [address] Studies Glucose /2016 [facility] [place] Laboratory Urine Culture Urine 03/[address] [facility] [address] Studies Reflexed Culture /2016 [facility] Reflexed [place] Laboratory Urine Color Urine Color 03/[address] [facility] [address] Studies /2016 [facility] [place] Laboratory Urine Blood Urine Blood 03/[address] [facility] [address] Studies /2016 [facility] [place] Laboratory Urine Urine 03/15 [facility]. Studies Bilirubin Bilirubin [facility] [place] Laboratory Urine Urine 03/15 [facility]. Studies Bacteria Bacteria /2016 [facility] [place] Laboratory Urine Urine 03/15 [facility]. Studies Appearance Appearance /2016 [facility] [place] Laboratory Thyroid 0.05 uIU/mL 0.34 - 03/[address] [facility] [address] Studies Stimulating 5.60 [facility] - Hormone (TSH) [place] Laboratory Free 1.76 ng/dl 0.58 - 03/15 [facility]. Studies Thyroxine 1.64 [facility] [place] Laboratory Total 1.4 mg/dL 0.3 - 1.2 03/15 [facility]. Studies Bilirubin /2016 [facility] [place] Laboratory Serum Total 5.9 g/dL 6.0 - 8.3 03/15 [facility]. Studies Protein /2016 [facility] [place] Laboratory Globulin 3.2 g/dL 2.3 - 3.5 03/[address] [facility] [address] Studies /2016 [facility] [place] Laboratory Aspartate 31 IU/L 10 - 42 03/15 [facility]. Studies Amino Transf /2016 [facility] - (AST/SGOT) [place] Laboratory Alkaline 59 IU/L 42 - 121 03/[address] [facility] [address] Studies Phosphatase /2016 [facility] [place] Laboratory Albumin/Globu 0.8 1.1 - 1.8 03/15 [facility]. Studies milagro Ratio /2016 [facility] [place] Laboratory Albumin 2.7 g/dL 3.2 - 5.5 03/[address] [facility] [address] Studies /2016 [facility] [place] Laboratory Alanine 20 IU/L 10 - 60 03/15 [facility]. Studies Aminotransfer /2016 [facility] - ase [place] (ALT/SGPT) Laboratory Lactic Acid 17.5 mg/dL 4.5 - 19.8 03/[address] [facility] [address] Studies Level /2016 [facility] [place] Laboratory Other Total 11.3 g/dl - 03/14 [facility]. Studies Hemoglobin [facility] - (Blood Gas) [place] Laboratory Blood Gas pH 7.42 7.35 - 03/[address] [facility] [address] Studies 7.45 /2016 [facility] [place] Laboratory Blood Gas PO2 56.7 mmHG 75 - 100 03/[address] [facility] [address] Studies /2016 [facility] [place] Laboratory Blood Gas 36.1 mmHG 35 - 45 03/14 [facility]. Studies PCO2 [facility] [place] Laboratory Blood Gas 84.9 % 94 - 97 03/14 [facility]. Studies Oxyhemoglobin [facility] [place] Laboratory Blood Gas 21.0 % 03/14 [facility]. Studies Inspired [facility] - Oxygen [place] Laboratory Blood Gas 23.2 mmol/L 03/14 [facility]. Studies HCO3 [facility] [place] Laboratory Blood Gas -0.6 mmol/L 03/14 [facility] Studies Base Excess /2016 [facility] [place] Laboratory Arterial 0.7 % 0 - 1.5 03/14 [facility]. Studies Blood [facility] - Methemoglobin [place] Laboratory Arterial 0.0 % 0 - 1.5 03/14 [facility]. Studies Blood [facility] - Carboxyhemogl [facility] [place] obin Laboratory Arterial Bld 85.5 % 92 - 98.5 03/14 [facility]. Studies O2 Saturation [facility] - (Measur) [place] Laboratory Procalcitonin 8.39 ng/mL 03/14 [facility]. Studies [facility] [place] Laboratory Segmented 84 % 40 - 80 03/14 [facility]. Studies Neutrophils /2016 [facility] [place] Laboratory Monocytes 2 % 0 - 10 03/14 [facility]. Studies [facility] [place] Laboratory Lymphocytes 5 % 15 - 42 03/14 [facility]. Studies [facility] [place] Laboratory Blood Blood 03/14 [facility]. Studies Morphology Morphology [facility] - Comment Comment [place] Laboratory Basophils 1 % 0 - 1 03/[address] Studies /2016 [facility] [place] Laboratory Band 8 % 0 - 1 03/[address] [facility] [address] Studies Neutrophils /2016 [facility] [place] Laboratory Direct 0.3 mg/dL 0 - 0.2 03/[address] [facility] [address] Studies Bilirubin [facility] [place] Laboratory Creatine 1.1 ng/ml 0.3 - 4.0 03/[address] [facility] [address] Studies Kinase MB [facility] [place] Laboratory Creatine 47 IU/L 22 - 269 03/[address] [facility] [address] Studies Kinase /2016 [facility] [place] Laboratory B-Type 482 pg/ml 03/[address] [facility] [address] Studies Natriuretic [facility] Peptide [place] Laboratory Rapid null 03/[address] [facility] [address] Studies Troponin I /2016 [facility] [place] Laboratory Prothrombin 16.7 9.5 - 12.5 03/[address] [facility] [address] Studies Time SECONDS [facility] [place] Laboratory INR 1.41 03/[address] [facility] [address] Studies International [facility] Normalized [place] Ratio Laboratory Activated 29.7 24.3 - 03/[address] [facility] [address] Studies Partial SECONDS 36.9 [facility] - Thromboplast [place] Time Vital Signs Vital Sign Value Date Comments Source Temperature Oral (F) 97.4 F 03/17/2017 [facility] [place] Heart Rate 96 03/17/[address] [facility] [place] Respitory Rate 18 03/17/[address] [facility] [place] Systolic (mm Hg) 116 03/17/[address] [facility] [place] Diastolic (mm Hg) 69 03/17/[facility] [place] [facility] [place] Height 74 03/17/[address] [facility] [place] [facility] [place] Weight 237.56 03/17/2017 [facility] [place] [facility] [place] Weight 247 03/09/2017 Andreas Lott Height 71 03/09/2017 Andreas Lott Respitory Rate 18 03/09/2017 Andreas Lott Heart Rate 80 03/09/2017 Andreas Lott Diastolic (mm Hg) 78 03/09/2017 Andreas Lott Systolic (mm Hg) 128 03/09/2017 Andreas Lott Temperature Oral (F) 97.4 F 03/09/2017 Andreas Lott Encounters Location Location Encounter Encounter Reason Attending ADM DC Status Source Details Type Number For Provider Date Date Visit [facility] [id number] 03/14 03/[address] [facility] [place] Procedures Procedure Code Date Perfomer Comments Source Chest Single [id number] [facility] [place] [facility] Count [id number] [facility] [place] [id number] [facility] [place] Thorax Wo Con [id number] [facility] [place] Chest Single [id number] [facility] View 7 [place] Gram Stain [id number] [facility] [place] Anaerobic Blood [id number] [facility] Culture 7 [place] Aerobic Blood [id number] [facility] Culture 7 [place] Chest Single [id number] [facility] View 7 [place] Influenza Type [facility] B Antigen 7 [place] Screen Influenza Type [facility] A Antigen 7 [place] Screen
--- OUTSIDE RECORDS SUMMARY | 2018-08-29 15:18 | XMS REPORT ---
[...] fibrillation 427.31 Active Problem Coronary atherosclerosis of minto 414.01 Active coronary artery Problem Idiopathic gout, [...] Status Dosage System Date Date Sotalol HCl [facility] 29823946576 120 MG Orally Active 1 tablet every 12 hrs Allopurinol [facility] 64819697717 100 Once a day August Active TAKE ONE 20, TABLET BY 2018 MOUTH DAILY Cialis [facility] 64206191652 10 MG Orally Active 1 tablet every 24 hrs Escitalopram [facility] 86906102973 20 MG Orally Active TAKE ONE Oxalate Once a day TABLET BY MOUTH DAILY Lexapro [facility] 20876118380 20 Active TAKE ONE TABLET BY MOUTH DAILY Sotalol HCl [facility] 02919074299 80 MG Orally Active TAKE two every 12 hrs TABLET BY MOUTH TWICE A DAY [facility] [place] 45260950963 10 Active TAKE ONE TABLET BY MOUTH DAILY Allopurinol [facility] 41301182056 100 MG Orally Active 1 tablet Once a day Ramipril [facility] 65302755941 10MG Orally Active TAKE ONE Once a day CAPSULE BY MOUTH DAILY Synthroid [facility] 58704883981 150 MCG Orally Jan 12, Active 1 tablet Once a day [facility] 2015 Protonix [facility] 85354140894 40 MG Active TAKE ONE TABLET BY MOUTH ONE TIME DAILY [facility] [place] 38507800349 10 MG Active TAKE ONE TABLET BY MOUTH DAILY Protonix [facility] 06662721278 40 Active TAKE ONE TABLET BY MOUTH DAILY Ramipril [facility] 53410933256 10 Active TAKE ONE CAPSULE BY MOUTH DAILY Gabapentin [facility] 82188870200 300 MG Orally Active 1 capsule Three times a day Eliquis [facility] 02289585318 5 MG Orally Active not defined Synthroid [facility] 78483695471 175 MCG Orally Active 1 tablet Once a day TTSS Nitroglycerin [facility] 78748017923 0.4 MG Active 1 tablet Sublingual Once under the a day tongue and allow to dissolve as needed Tamsulosin HCl [facility] 97410994075 0.4 MG Orally Active 1 capsule Once a day 30 minutes after the same meal each day Baclofen [facility] 39681725061 10 Active TAKE ONE TABLET BY MOUTH EVERY 6 HOURS NEEDED Levothyroxine [facility] 84867428996 175 Orally Once Active TAKE ONE Sodium a day TABLET BY MOUTH DAILY ON SUNDAY TO SUNDAY AND SUNDAY AND SUNDAY Amlodipine [facility] 83776593482 10 MG Orally Active 1 tablet Besylate Once a day Baclofen [facility] 65098423730 10 MG Active TAKE ONE TABLET BY MOUTH EVERY SIX HOURS NEEDED Atorvastatin [facility] 26099136964 40MG Active TAKE ONE Calcium TABLET BY MOUTH DAILY Chlorthalidone [facility] 99395657003 25 MG Orally Active 1/2 tab Once a day Pantoprazole [facility] 04465460079 40 MG Orally Active 1 tablet Sodium Once a day Clonazepam [facility] 00039384095 2 MG Orally August 31, Active 1 tablet Twice a day 2015 Clonidine HCl [facility] 72465156687 0.1 MG Orally Nov 24, Active 1 tablet tid 2013 Levothyroxine [facility] 86190846266 175 MCG Orally Active 1 tablet Sodium Once a day Cholestyramine [facility] 33568555853 4 GM Orally October 07, Active 1 packet daily 2015 mixed with water or non-carbon ated drink [place] [facility] 31898588593 10-325 MG Nov 13, Active 1 tablet Orally every 6 2015 as needed hrs Flomax [facility] 95053721147 0.4 Active TAKE ONE CAPSULE BY MOUTH [...]
[2018-08-29 16:16] LABS: Absolute Lymphocytes (CBC) 1.2 K/uL (0.7-4.9); Absolute Monocytes 0.4 K/uL (0.1-1.3); Absolute Neutrophil 2.8 K/uL (1.8-8.0); Basophils % 2.9 % (0-1.3); Eosinophils % 6.6 % (0-4.4); Hematocrit 38.2 % (39.6-49.0); Lymphocytes % 23.8 % (15.3-44.8); MPV 8.2 fL (7.6-11.3); Monocytes % 8.1 % (3.3-12.3)
[2018-08-29 16:17] LABS: Protime INR 1.14
[2018-08-29 16:38] LABS: ALT/SGPT 22 U/L (12-78); AST/SGOT 14 U/L (15-37); Albumin 3.5 g/dL (3.4-5.0); Alkaline Phosphatase 67 U/L (45-117); BUN Blood Urea Nitrogen 20 mg/dL (7-18); Bicarbonate 28 mmol/L (21-32); Bilirubin Direct 0.1 mg/dL (0-0.2); Bilirubin Total 0.5 mg/dL (0.2-1.0); Glucose Level 103 mg/dL (74-106); Magnesium 2.4 mg/dL (1.8-2.4); NT PRO-BNP 269 pg/mL (<125); Potassium 4.8 mmol/L (3.5-5.1); Protein, Total 7.3 g/dL (6.4-8.2); Sodium Level 140 mmol/L (136-145); Troponin (Emerg Dept Use Only) < 0.02 ng/mL (0.0-0.045)
--- NOTE | 2018-08-29 16:42 | RAD REPORT ---
EXAM DESCRIPTION: RAD - Chest Single View - 08/29/2018 4:16 pm CLINICAL HISTORY: PALPITATIONS Chest pain. COMPARISON: Chest Pa And Lat (2 Views) dated 05/22/2018; Chest Single View dated 01/31/2018; Chest Sin gle View dated 03/17/2017; Chest Single View dated 03/15/2017 FINDINGS: Portable technique limits examination quality. Mild to moderate bilateral pulmonary opacities are present suggesting pulmonary edema. The heart is m oderately enlarged in size with a dual lead pacer device present. No displaced fractures. IMPRESSION: Mild to moderate CHF versus volume overload pattern.
[2018-08-29 17:33] LABS: Urine Bacteria <20 /HPF (NONE SEEN); Urine Mucus 1+ /HPF (NONE SEEN); Urine RBC NONE SEEN /HPF (NONE SEEN)
[2018-08-29 17:34] LABS: Urine Culture Reflex Order NOT NEEDED
[2018-08-29 18:02] LABS: Urine Blood NEGATIVE (NEG); Urine Glucose NEGATIVE (NEG); Urine Protein 1+ (NEG); Urine Specific Gravity >1.030 (1.005-1.030); Urine pH 5.5 (5.0-7.0)
--- NOTE | 2018-08-29 18:25 | ER ---
Nurse's Notes [facility] Name: Ángel Haddad Age: 63 yrs Sex: Male : 1955 Arrival Date: 08/29/2018 Time: 15:17 Bed 7 Private MD: Jose Aguilar E Diagnosis: Palpitations;Hypothyroidism, unspecified;Malaise and fatigue Presentation: 08/29 15:28 Presenting complaint: Patient states: chest palpatations, fatigue, nausea, headache for ss two weeks, worse today. Transition of care: patient was not received from another setting of care. Onset of symptoms was July 2018. Risk Assessment: Do you want to hurt yourself or someone else? Patient reports no desire to harm self or others. Initial Sepsis Screen: Does the patient meet any 2 criteria? No. Patient's initial sepsis screen is negative. Does the patient have a suspected source of infection? No. Patient's initial sepsis screen is negative. Care prior to arrival: None. 15:28 Method Of Arrival: Ambulatory ss 15:28 Acuity: MARGO 3 ss Triage Assessment: 15:30 General: Appears in no apparent distress. uncomfortable. ss Historical: - Allergies: 15:30 apixaban; ss 15:30 CLOPIDOGREL; ss 15:30 tramadol; ss - Home Meds: 16:24 Norvasc 5 mg Oral tab [Active]; sotalol 80 mg Oral tab 1 tab 2 times per day [Active]; hb tamsulosin Oral [Active]; Verapamil Oral [Active]; - PMHx: 15:30 CVA; Myocardial infarction; pace maker; Atrial Fib; kidney failure; ss - PSHx: 15:30 pace maker; cardiac ablation; cardiac cath; Cholecystectomy; Appendectomy; cardiac ss bypass; - Immunization history:: Adult Immunizations up to date. - Social history:: Smoking status: Patient/guardian denies using tobacco. - Ebola Screening: : Patient negative for fever greater than or equal to 101.5 degrees Fahrenheit, and additional compatible Ebola Virus Disease symptoms Patient denies exposure to infectious person Patient denies travel to an Ebola-affected area in the 21 days before illness onset No symptoms or risks identified at this time. Screenin:11 Abuse screen: Denies threats or abuse. Denies injuries from another. Nutritional hb screening: No deficits noted. Tuberculosis screening: No symptoms or risk factors identified. Fall Risk None identified. Assessment: 15:44 General: Appears in no apparent distress. Behavior is calm, cooperative. Pain: Denies hb pain. Neuro: Level of Consciousness is awake, alert, obeys commands, Oriented to person, place, time, situation. Cardiovascular: Heart tones S1 S2 present Capillary refill < 3 seconds Patient's skin is warm and dry. Rhythm is atrial pacer. Respiratory: Airway is patent Respiratory effort is even, unlabored, Respiratory pattern is regular, symmetrical, Breath sounds are clear bilaterally. GI: No signs and/or symptoms were reported involving the gastrointestinal system. : No signs and/or symptoms were reported regarding the genitourinary system. EENT: No signs and/or symptoms were reported regarding the EENT system. Derm: Skin is intact, is healthy with good turgor, Skin is pink, warm \T\ dry. Musculoskeletal: No signs and/or symptoms reported regarding the musculoskeletal system. 16:32 Reassessment: Patient appears in no apparent distress at this time. No changes from previously documented assessment. Patient and/or family updated on plan of care and expected duration. Pain level reassessed. Patient is alert, oriented x 3, equal unlabored respirations, skin warm/dry/pink. 17:28 Reassessment: Patient appears in no apparent distress at this time. Patient and/or hb family updated on plan of care and expected duration. Pain level reassessed. Patient is alert, oriented x 3, equal unlabored respirations, skin warm/dry/pink. 18:29 Reassessment: Patient appears in no apparent distress at this time. Patient and/or hb family updated on plan of care and expected duration. Pain level reassessed. Patient is alert, oriented x 3, equal unlabored respirations, skin warm/dry/pink. Patient denies pain at this time. Vital Signs: 15:30 BP 119 / 76; Pulse 80; Resp 16; Temp 98.3; Pulse Ox 99% on R/A; Weight 108.86 kg; ss Height 6 ft. 2 in. (187.96 cm); Pain 0/10; 16:30 BP 123 / 91; Pulse 90; Resp 19; Pulse Ox 96% on R/A; Pain 0/10; hb 17:25 BP 115 / 71; Pulse 80; Resp 17; Pulse Ox 98% on R/A; Pain 0/10; hb 18:29 BP 125 / 90; Pulse 84; Resp 14; Pulse Ox 97% on R/A; Pain 0/10; hb 15:30 Body Mass Index 30.81 (108.86 kg, 187.96 cm) ED Course: 15:17 Patient arrived in ED. mr 15:17 Jose Aguilar MD is Private Physician. mr 15:28 Triage completed. ss 15:30 Chirag Jno PA is PHCP. cp 15:30 Chirag Cueto MD is Attending Physician. cp 15:30 Arm band placed on left wrist. Patient placed in an exam room, on a stretcher. ss 15:38 EKG done, by pharmacy intake technician. reviewed by Chirag Cueto MD. at1 16:02 Inserted saline lock: 20 gauge in right antecubital area, using aseptic technique. hb Blood collected. 16:11 Dacia So, RN is Primary Nurse. hb 16:11 Patient has correct armband on for positive identification. Placed in gown. Bed in low hb position. Call light in reach. Side rails up X 1. 16:17 XRAY Chest (1 view) In Process Unspecified. EDMS 19:06 No provider procedures requiring assistance completed. IV discontinued, intact, hb bleeding controlled, No redness/swelling at site. Pressure dressing applied. Administered Medications: 18:28 Drug: Lasix 20 mg Route: IVP; Site: right antecubital; hb 18:58 Follow up: Response: No adverse reaction hb Output: 17:10 Urine: 250ml (Voided); Total: 250ml. hb 18:55 Urine: 650ml (Voided); Total: 900ml. hb Outcome: 18:23 Discharge ordered by . cp 19:06 Discharged to home ambulatory, with significant other. hb 19:06 Condition: stable 19:06 Discharge instructions given to patient, significant other, Instructed on discharge instructions, follow up and referral plans. medication usage, Demonstrated understanding of instructions, follow-up care, medications. 19:11 Patient left the ED. hb Signatures: Dispatcher [employer] EDMI Chantal QuarlesCharla RN RN Angeles Loya, health it specialist EKG Tat1 Chirag Jon PA PA cp Dacia So, KAROL RN hb
--- NOTE | 2018-08-29 18:25 | EDPHYS ---
Physician Documentation [facility] Name: Ángel Haddad Age: 63 yrs Sex: Male : 1955 Arrival Date: 08/29/2018 Time: 15:17 Bed 7 Private MD: Jose Aguilar E ED Physician Chirag Cueto HPI: 08/29 15:45 This 63 yrs old Male presents to ER via Ambulatory with complaints of cp Palpitations. 15:45 The patient presents with a history of irregular heart beat. cp 15:45 Context: The symptoms occur at rest. Onset: The symptoms/episode began/occurred 2 cp week(s) ago. Duration: The patient or guardian reports multiple episodes, that wax and wane. Associated signs and symptoms: Pertinent positives: fatigue, Pertinent negatives: chest pain, cough, fever, SOB, syncope. Severity of symptoms: in the emergency department the symptoms are worse. Historical: - Allergies: 15:30 apixaban; ss 15:30 CLOPIDOGREL; ss 15:30 tramadol; ss - Home Meds: 16:24 Norvasc 5 mg Oral tab [Active]; sotalol 80 mg Oral tab 1 tab 2 times per day [Active]; hb tamsulosin Oral [Active]; Verapamil Oral [Active]; - PMHx: 15:30 CVA; Myocardial infarction; pace maker; Atrial Fib; kidney failure; ss - PSHx: 15:30 pace maker; cardiac ablation; cardiac cath; Cholecystectomy; Appendectomy; cardiac ss bypass; - Immunization history:: Adult Immunizations up to date. - Social history:: Smoking status: Patient/guardian denies using tobacco. - Ebola Screening: : Patient negative for fever greater than or equal to 101.5 degrees Fahrenheit, and additional compatible Ebola Virus Disease symptoms Patient denies exposure to infectious person Patient denies travel to an Ebola-affected area in the 21 days before illness onset No symptoms or risks identified at this time. ROS: 15:50 Constitutional: Positive for fatigue, Negative for body aches, chills, fever, poor PO cp intake. 15:50 Eyes: Negative for injury, pain, redness, and discharge. cp 15:50 ENT: Negative for drainage from ear(s), ear pain, sore throat, difficulty swallowing, difficulty handling secretions. 15:50 Cardiovascular: Positive for palpitations, Negative for chest pain, edema. 15:50 Respiratory: Negative for cough, shortness of breath, wheezing. 15:50 Abdomen/GI: Negative for abdominal pain, vomiting, diarrhea, constipation, black/tarry stool, rectal bleeding. 15:50 Back: Negative for pain at rest, pain with movement. 15:50 : Negative for urinary symptoms. 15:50 Neuro: Negative for altered mental status, headache, syncope, weakness. 15:50 All other systems are negative. Exam: 15:30 ECG was reviewed by the Attending Physician. cp 15:55 Constitutional: The patient appears in no acute distress, alert, awake, non-toxic, well cp developed, well nourished. 15:55 Head/Face: Normocephalic, atraumatic. cp 15:55 Eyes: Periorbital structures: appear normal, Conjunctiva: normal, no exudate, no cp injection, Sclera: no appreciated abnormality, Lids and lashes: appear normal, bilaterally. 15:55 ENT: External ear(s): are unremarkable, Nose: is normal, Mouth: is normal, Posterior pharynx: is normal, airway is patent, no erythema, no exudate. 15:55 Neck: ROM/movement: is normal, is supple, without pain, no range of motions cp limitations, no nuchal rigidity. 15:55 Chest/axilla: Inspection: normal, Palpation: is normal, no crepitus, no tenderness. 15:55 Cardiovascular: Rate: normal, Rhythm: regular. 15:55 Respiratory: the patient does not display signs of respiratory distress, Respirations: normal, no use of accessory muscles, no retractions, no splinting, no tachypnea, labored breathing, is not present, Breath sounds: are clear throughout, no decreased breath sounds, no stridor, no wheezing. 15:55 Abdomen/GI: Inspection: abdomen appears normal, Bowel sounds: active, all quadrants, Palpation: abdomen is soft and non-tender, in all quadrants. 15:55 Back: pain, is absent, ROM is normal. 15:55 Skin: no rash present. 15:55 Neuro: Orientation: to person, place \T\ time. Mentation: is normal, Cerebellar function: is grossly normal, Motor: moves all fours, strength is normal, Sensation: is normal. Vital Signs: 15:30 BP 119 / 76; Pulse 80; Resp 16; Temp 98.3; Pulse Ox 99% on R/A; Weight 108.86 kg; ss Height 6 ft. 2 in. (187.96 cm); Pain 0/10; 16:30 BP 123 / 91; Pulse 90; Resp 19; Pulse Ox 96% on R/A; Pain 0/10; hb 17:25 BP 115 / 71; Pulse 80; Resp 17; Pulse Ox 98% on R/A; Pain 0/10; hb 18:29 BP 125 / 90; Pulse 84; Resp 14; Pulse Ox 97% on R/A; Pain 0/10; hb 15:30 Body Mass Index 30.81 (108.86 kg, 187.96 cm) ss MDM: 15:30 Patient medically screened. meg 18:22 Data reviewed: vital signs, nurses notes, lab test result(s), EKG, radiologic studies, cp plain films. 18:22 Differential diagnosis: arrythmia, electrolyte abnormality, dehydration. Test cp interpretation: by ED physician or midlevel provider: ECG, plain radiologic studies. Counseling: I had a detailed discussion with the patient and/or guardian regarding: the historical points, exam findings, and any diagnostic results supporting the discharge/admit diagnosis, lab results, radiology results, the need for outpatient follow up, an pharmacy scheduler, to return to the emergency department if symptoms worsen or persist or if there are any questions or concerns that arise at home. Response to treatment: the patient's symptoms have mildly improved after treatment, and as a result, I will discharge patient. 08/29 15:38 Order name: Basic Metabolic Panel; Complete Time: 18:08 cp 08/29 18:07 Interpretation: Normal except: CL 109; BUN 20; CRE 1.95; GFR 35; CA 8.4. cp 08/29 15:38 Order name: CBC with Diff; Complete Time: 18:08 cp 08/29 18:07 Interpretation: Normal except: HGB 12.0; HCT 38.2; MCV 79.6; MCH 25.0; MCHC 31.4; RDW cp 18.7; EOSINOPHIL % 6.6; BASO% 2.9. 08/29 15:38 Order name: LFT's; Complete Time: 18:08 cp 08/29 18:08 Interpretation: Normal except: AST 14; GLOB 3.8; A/G 0.9. cp 06/13 15:38 Order name: Magnesium; Complete Time: 18:08 cp 06/13 15:38 Order name: NT PRO-BNP; Complete Time: 18:08 cp 06/13 15:38 Order name: PT-INR; Complete Time: 18:08 cp /13 15:38 Order name: Troponin (emerg Dept Use Only); Complete Time: 18:08 cp /13 18:09 Interpretation: Within normal limits: TROPED < 0.02. cp 06/13 15:38 Order name: XRAY Chest (1 view); Complete Time: 18:08 cp 06/13 15:38 Order name: TSH; Complete Time: 18:08 cp 06/13 18:08 Interpretation: Abnormal: TSH 8.800. cp 06/ 15:38 Order name: T3 Free; Complete Time: 18:08 cp /13 15:38 Order name: Urine Microscopic Only; Complete Time: 18:08 cp 13 16:43 Order name: T4 Free; Complete Time: 18:08 EDMS 08/29 17:21 Order name: Urine Dipstick--Ancillary (enter results); Complete Time: 18:08 ms / 15:38 Order name: EKG; Complete Time: 15:42 cp 06/13 15:38 Order name: Cardiac monitoring; Complete Time: 16:02 cp 13 15:38 Order name: EKG - Nurse/Tech; Complete Time: 16:02 cp /13 15:38 Order name: IV Saline Lock; Complete Time: 16:31 cp /13 15:38 Order name: Labs collected and sent; Complete Time: 16:31 cp 13 15:38 Order name: O2 Per Protocol; Complete Time: 16:02 cp /13 15:38 Order name: O2 Sat Monitoring; Complete Time: 16:31 cp /13 15:38 Order name: Urine Dipstick-Ancillary (obtain specimen); Complete Time: 17:29 cp EC:30 Rate is 82 beats/min. Rhythm is regular. QRS interval is normal. QT interval is normal. cp T waves are Inverted in leads I, aVL, V4, V5, V6. Administered Medications: 18:28 Drug: Lasix 20 mg Route: IVP; Site: right antecubital; hb 18:58 Follow up: Response: No adverse reaction hb Disposition: 08/29/18 18:23 Discharged to Home. Impression: Palpitations, Hypothyroidism, unspecified, Malaise and fatigue. - Condition is Stable. - Discharge Instructions: Hypothyroidism, Palpitations, Fatigue. - Medication Reconciliation Form, Thank You Letter, Antibiotic Education, Prescription Opioid Use form. - Follow up: Private Physician; When: 2 - 3 days; Reason: Recheck today's complaints. - Problem is new. - Symptoms have improved. Addendum: 09/02/2018 09:55 Co-signature as Attending Physician, Chirag Cueto MD I agree with the assessment and c ariza plan of care. Signatures: Dispatcher [employer] EDMS Chirag Cueto MD MD cha Smirch, Shelby, RN RN Chirag Jon PA PA cp Baxter, Heather, KAROL RN Corrections: (The following items were deleted from the chart) 08/29 18:09 18:07 Normal except: CL 109; BUN 20; CRE 1.95; GFR 35. cp cp 19:11 18:23 08/29/2018 18:23 Discharged to Home. Impression: Palpitations; Hypothyroidism, hb unspecified; Malaise and fatigue. Condition is Stable. Forms are Medication Reconciliation Form, Thank You Letter, Antibiotic Education, Prescription Opioid Use. Follow up: Private Physician; When: 2 - 3 days; Reason: Recheck today's complaints. Problem is new. Symptoms have improved. cp
[2018-08-29] MEDS ORDERED: FUROSEMIDE 20 MG/ 2ML VIAL ONE (18:38)
--- NOTE | 2018-08-30 08:05 | EKG ---
Test Date: 2018-08-29 Test Time: 15:23:05 Crusher Assembler: JAIDEN MEASUREMENT RESULTS: Intervals: Rate: 82 [place]: QRSD: 94 QT: 414 QTc: 483 [place]: P: [place]: QRS: -13 T: 153 INTERPRETIVE STATEMENTS: Sinus rhythm Inferior infarct, age undetermined Anterior infarct, age undetermined ST & T wave abnormality, consider lateral ischemia Abnormal ECG Compared to ECG 01/31/2018 20:42:29 Atrial-paced complex(es) or rhythm no longer present Ventricular-paced complex(es) or rhythm no longer present Myocardial infarct finding still present ST (T wave) deviation still present Electronically Signed On 08-30-18 08:04:35 CDT by Ron Brink
== END 2018-08-29 19:11 | disposition home or self-care (01) ==
LOC: ER 15:12
DX: R00.2 Palpitations (principal); E03.9 Hypothyroidism, unspecified; R53.83 Other fatigue; I25.2 Old myocardial infarction; I48.91 Unspecified atrial fibrillation; Z95.0 Presence of cardiac pacemaker; Z88.5 Allergy status to narcotic agent; Z88.8 Allergy status to other drugs, medicaments and biological substances; Z86.73 Personal history of transient ischemic attack (TIA), and cerebral infarction without residual deficits
CPT/HCPCS: 93005; 85025; 80048; 36415; 83735; 85610; 80076; 84443; 84484; 84481; 84439; 83880; 71045; 96374; 99284; J1940; 81003; 81015

== ENCOUNTER 2020-06-04 16:49 | Observation (INO) | payer OTHER ==
--- OUTSIDE RECORDS SUMMARY | 2020-06-04 16:52 | XMS REPORT | Continuity of Care Document ---
:1955 Author Organization [facility] t Address [address] [place] [address] Care Team Providers Name Role Phone Ginger AZAR Primary Care Physician Unavailable Ginger AZAR Attending Clinician Unavailable Loy FOSTER, Radha Attending Clinician July ORIGINATION SPECIALIST Attending Clinician Mary Thakur MD Attending Clinician Only, Test Attending Clinician Unavailable Doctor Unassigned, Name Attending Clinician Unavailable Nurse, General Surgery Attending Clinician Unavailable Loy FOSTER, A Admitting Clinician Payers Payer Name Policy Type Policy Number Effective Date Expiration Date Genesis huynh [facility] MEDICARE [id number] 2016 ADVANTAGE 00:00:00 Problems Condition Condition Condition Status Onset Resolution Last Treating Co mments Source Name Details Category Date Date Treatment Clinician Date Chronic Problem Active 2018-01-10 Beka yelitza kidney 02:57:21 l disease, Chronic Melony nn unspecifie kidney d disease, unspecifie d Active Problem 01/10/2018 Andreas Lott Unspecifie Problem Active 2018-01-10 M emoria d 02:57:21 l superficia Raúl n l injury Unspecifie of right d foot, superficia initial l injury encounter of right foot, initial encounter Active Problem 01/10/2018 Andreas Lott Other Problem Active 2018-01-10 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 [place] disease cerebrovas cular disease Active Problem 01/10/2018 Andreas Lott Anxiety Problem Active 2018-01-10 Beka yelitza disorder, 02:57:21 l unspecifie Anxiety Her carter d disorder, unspecifie d Active Problem 01/10/2018 Andreas Lott Atrial Problem Active 2018-01-10 Memor ia fibrillati 02:57:21 l on Atrial [place] fibrillati on Active Problem 8 Andreas Lott Coronary Problem Active 2018-01-10 Mem oria atheroscle 02:57:21 l rosis of Coronary Herm angie [place] atheroscle coronary rosis of artery [place] coronary artery Active Problem 01/10/2018 Andreas Lott Hyperlipid Problem Active 2018-01-10 M emoria emia 02:57:21 l [place] Hyperlipid emia Active Problem 01/10/2018 Andreas Lott Persistent Problem Active 2018-01-10 M emoria atrial 02:57:21 l fibrillati Raúl n on Persistent atrial fibrillati on Active Problem 8 Andreas Lott Left Problem Active 2018-01-10 Memor ia ventricula 02:57:21 l r failure Left Shahid ventricula r failure Active Problem 01/10/2018 Andreas Lott Sleep Problem Active 2018-01-10 Memor ia apnea, 02:57:21 l unspecifie Sleep Melony nn d apnea, unspecifie d Active Problem 01/10/2018 Andreas Lott Obstructiv Problem Active 2018-01-10 M emoria e sleep 02:57:21 l apnea Shahid (adult) Obstructiv (pediatric e sleep ) apnea (adult) (pediatric ) Active Problem 01/10/2018 Andreas Lott Hypertroph Problem Active 2018-01-10 M emoria y (benign) 02:57:21 l of [place] prostate Hypertroph without y (benign) urinary of obstructio prostate n and without other urinary lower obstructio urinary n and tract other symptoms lower [LUTS] urinary tract symptoms [LUTS] Active Problem 01/10/2018 Andreas Lott Chronic Problem Active 2018-01-10 Beka yelitza kidney 02:57:21 l disease, Chronic Melony nn Stage III kidney (moderate) disease, Stage III (moderate) Active Problem 01/10/2018 Andreas Lott GERD Problem Active 2018-01-10 Memor ia 02:57:21 l GERD [place] Active Problem 01/10/2018 Andreas Lott Unspecifie Problem Active 2018-01-10 M emoria d sleep 02:57:21 l apnea Shahid Unspecifie d sleep apnea Active Problem 01/10/2018 Andreas Lott Hypothyroi Problem Active 2018-01-10 M emoria dism, 02:57:21 l unspecifie Raúl n d Hypothyroi dism, unspecifie d Active Problem 01/10/2018 Andreas Lott Chronic Diagnosis Active 2018-01-10 Me moria kidney 02:57:21 l disease, Chronic Melony nn stage 3 kidney (moderate) disease, stage 3 (moderate) Active Diagnosis 01/10/2018 Andreas Lott Other Problem Active 2018-01-10 Memor ia generalize 02:57:21 l d ischemic Other Melony nn cerebrovas 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 Active Problem 01/10/2018 Andreas Lott 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 02:57:21 l mellitus Type 2 Raúl n with diabetes hyperglyce mellitus prabhu with hyperglyce prabhu Active Diagnosis 01/10/2018 Andreas Lott 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 Memoria gout, 02:57:21 l unspecifie Raúl n d site Idiopathic gout, unspecifie d site Active Diagnosis 01/10/2018 Andreas Lott Gouty Problem Active 2018-01-10 Memor ia arthropath 02:57:21 l y, Gouty [place] unspecifie arthropath d y, unspecifie d Active Problem 01/10/2018 Andreas Lott Unspecifie Problem Active 2018-01-10 M emoria d 02:57:21 l essential Shahid hypertensi Unspecifie on d essential hypertensi on Active Problem 8 Andreas Lott Unspecifie Problem Active 2018-01-10 M emoria d 02:57:21 l hypothyroi Raúl n dism Unspecifie d hypothyroi dism Active Problem 01/10/2018 Andreas Lott Diabetes Problem Active 2018-01-10 Mem oria mellitus 02:57:21 l without Diabetes Melony nn mention of mellitus complicati without on, type mention of II or complicati unspecifie on, type d type, II or not stated unspecifie as d type, uncontroll not stated ed as uncontroll ed Active Problem 8 Andreas Lott Hemorrhage Problem Active 2018-01-10 M emoria of 02:57:21 l gastrointe Raúl n stinal Hemorrhage tract, of unspecifie gastrointe d stinal tract, unspecifie d Active Problem 01/10/2018 Andreas Lott Low back Problem Active 2018-01-10 Mem oria pain 02:57:21 l Low back Raúl n pain Active Problem 01/10/2018 Andreas Lott Diabetes Problem Active 2018-01-10 Mem oria mellitus 02:57:21 l without Diabetes Melony nn mention of mellitus complicati without on, type mention of II or complicati unspecifie on, type d type, II or uncontroll unspecifie ed d type, uncontroll ed Active Problem 8 Andreas Lott Gastro-eso Problem Active 2018-01-10 M emoria phageal 02:57:21 l reflux Shahid disease Gastro-eso with phageal esophagiti reflux s disease with esophagiti s Active Problem 01/10/2018 Andreas Abarca Lott Malignant Problem Active 2018-01-10 Me moria neoplasm 02:57:21 l of thyroid Raúl n gland Malignant neoplasm of thyroid gland Active Problem 01/10/2018 Andreas Abarca Oren Hyperlipid Problem Active 2018-01-10 M emoria emia, 02:57:21 l unspecifie Raúl n d Hyperlipid emia, unspecifie d Active Problem 01/10/2018 Andreas Lott Allergies, Adverse Reactions, Alerts Allergy Allergy Status Severity Reaction(s) Onset Inactive Treating Comm ents Source Name Type Date Date Clinician plavix plavix Active Info Not 2016-03 Memoria Available 2-22 l 00:00: Shahid 00 Medications Ordered Filled Start Stop Current Ordering Indication Dosage Frequency Signature Comments Components Source Medication Medication Date Date Medication? Clinician (SIG) Name Name Escitalopra 2017-03 Yes Karoline Miguel TAKE ONE Memoria m Oxalate 0-25 TABLET BY l 02:57: MOUTH [place] 21 DAILY Amlodipine 2017-03 Yes Karoline Rivera 1 tablet Memoria Besylate 0-25 l 02:57: Shahid 21 Baclofen 2017-03 Yes Karoline Rivera TAKE ONE M emoria 0-25 TABLET BY l 02:57: MOUTH [place] 21 EVERY SIX HOURS NEEDED Levothyroxi 2017-03 Yes Karoline Rivera TAKE ONE Memoria ne Sodium 0-25 TABLET BY l 02:57: MOUTH [place] 21 DAILY ON SUNDAY TO SUNDAY AND SUNDAY AND SUNDAY Ramipril 2017-03 Yes Karoline Rivera TAKE ONE M emoria 0-25 CAPSULE BY l 02:57: MOUTH Shahid 21 DAILY Pantoprazol 2017-03 Yes Karoline Rivera 1 tablet Memoria e Sodium 0-25 l 02:57: [place] 21 Sotalol HCl 2017-03 Yes Karoline Rivera 1 tablet Memoria 0-25 l 02:57: [place] 21 Cialis 2017-03 Yes Karoline Rivera 1 tablet Mem oria 0-25 l 02:57: [place] 21 Lexapro 2017-03 Yes Karoline Rivera TAKE ONE Me moria 0-25 TABLET BY l 02:57: MOUTH [place] 21 DAILY Sotalol HCl 2017-03 Yes Karoline Rivera TAKE two Memoria 0-25 TABLET BY l 02:57: MOUTH Shahid 21 TWICE A DAY Norvasc 2017-03 Yes Karoline Rivera TAKE ONE Me moria 0-25 TABLET BY l 02:57: MOUTH Shahid 21 DAILY Allopurinol 2017-03 Yes Karoline Rivera 1 tablet Memoria 0-25 l 02:57: Shahid 21 Protonix 2017-03 Yes Karoline Rivera TAKE ONE M emoria 0-25 TABLET BY l 02:57: MOUTH ONE [place] 21 TIME DAILY Ramipril 2017-03 Yes Karoline Rivera TAKE ONE M emoria 0-25 CAPSULE BY l 02:57: MOUTH Shahid 21 DAILY Gabapentin 2017-03 Yes Karoline Rivera 1 capsule Memoria 0-25 l 02:57: Shahid 21 Eliquis 2017-03 Yes Karoline Rivera not Memori a 0-25 defined l 02:57: [place] 21 Synthroid 2017-03 Yes Karoline Rivera 1 tablet Memoria 0-25 l 02:57: Shah[place] 21 Nitroglycer 2017-03 Yes Karoline Rivera 1 tablet Memoria in 0-25 under the l 02:57: tongue and [place] 21 allow to dissolve as needed Tamsulosin 2017-03 Yes Karoline Rivera 1 capsule Memoria HCl 0-25 30 minutes l 02:57: after the Shahid 21 same meal each day Baclofen 2017-03 Yes Karoline Rivera TAKE ONE M emoria 0-25 TABLET BY l 02:57: MOUTH Shahid 21 EVERY 6 HOURS NEEDED Atorvastati 2017-03 Yes Karoline Rivera TAKE ONE Memoria n Calcium 0-25 TABLET BY l 02:57: MOUTH [place] 21 DAILY Chlorthalid 2017-03 Yes Karoline Rivera 1/2 tab Memoria one 0-25 l 02:57: [place] 21 Levothyroxi 2017-03 Yes Karoline Rivera 1 tablet Memoria ne Sodium 0-25 l 02:57: [place] 21 Flomax 2017- Yes Karoline Rivera TAKE ONE Mem oria 0-25 CAPSULE BY l 02:57: MOUTH Shahid 21 DAILY 30 MINUTES BEFORE SAME MEAL Allopurinol Yes Karoline Rivera TAKE ONE Memoria 6-20 TABLET BY l 00:00: MOUTH Shahid 00 DAILY Synthroid 2015-03 Yes Karoline Rivera 1 tablet Memoria 0-27 l 00:00: Shahid 00 Larned Yes Karoline Rivera 1 tablet Beka yelitza 8-28 as needed l 00:00: Shahid 00 Cholestyram Yes Karoline Rivera 1 packet Memoria ine 7-22 mixed with l 00:00: water or [place] 00 non-carbon ated drink Clonazepam Yes Karoline Rivera 1 tablet Memoria 6-15 l 00:00: [place] 00 Clonidine 2013- Yes Karoline Rivera 1 tablet Memoria HCl 9-08 l 00:00: Shahid 00 Vital Signs Vital Name Observation Time Observation Value Comments Source Weight 2017-03-09 18:30:00 [facility] Height 2017-03-09 18:30:00 [facility] [place] Respitory Rate 2017-03-09 18:30:00 Memori al Shahid Heart Rate 2017-03-09 18:30:00 [facility] Diastolic (mm Hg) 2017-03-09 18:30:00 Mem orial [place] Systolic (mm Hg) 2017-03-09 18:30:00 Beka rial Shahid Temperature Oral (F) 2017-03-09 18:30:00 97.4 F [facility] [place] Procedures This patient has no known procedures. Encounters Start End Encounter Admission Attending Care Care Encounter Source Date/Time Date/Time Type Type Clinicians Facility Department ID 2019-11-12 2019-11-12 Outpatient DANGELO GOLDENMANBOB MDA [id number] 00:00:00 00:00:00 VIDA miramontes 2019-08-06 2019-08-06 [facility] Loy [facility] [id number] 11:31:28 14:15:00 Encounter David Block [id number] Shane [id number] Surgical [id number] Center 071 2019-08-06 2019-08-06 Anesthesia Darius Mcdowell [facility] [id number] 12:50:00 13:19:00 BlazeiJm [id number] [place] [id number] Surgical [id number] [place] 020 2019-08-05 2019-08-05 Laboratory Only, [facility] [id number] 09:04:50 09:19:50 Only Test [place] [id number] [place] [id number] Professio [id number] [facility] [address] [facility] 2019-08-05 2019-08-05 Orders Doctor TERENCE [id number] 00:00:00 00:00:00 Only Unassigned, [facility] [id number] [facility] [id number] 2019-07-16 2019-07-16 [facility] [id number] 10:00:00 13:45:00 Encounter David Block [id number] [place] [id number] Surgical [id number] [place] 071 2019-07-15 2019-07-15 Nurse Nurse, [facility] [id number] 10:23:51 10:30:38 Visit General Mckayla [id number] Surgery [place] [id number] Professio [id number] [facility] [address] [facility] 2019-07-15 2019-07-15 Telephone TERENCE Granado [id number] 00:00:00 00:00:00 David Radha [place] [id number] [place] [id number] 2017-05-16 2017-05-16 Outpatient Andreas Rima Abarca [id number] [facility] 10:18:00 10:18:00 Oren Lott DO, alW orks DO, PA PA 2017-03-09 2017-03-09 Outpatient Andreas Abarca. [id number] [facility] 13:30:00 13:30:00 Oren Esteban DO, a lWorks DO, PA PA Results This patient has no known results.
[2020-06-04 19:42] LABS: Absolute Lymphocytes (CBC) 1.3 K/uL (0.7-4.9); Basophils % 1.4 % (0-1.3); Hematocrit 37.6 % (39.6-49.0); Lymphocytes % 23.2 % (15.3-44.8); MPV 8.4 fL (7.6-11.3); RBC Red Blood Cell Count 4.53 M/uL (4.33-5.43)
[2020-06-04 19:47] LABS: Protime INR 1.14
--- NOTE | 2020-06-04 19:49 | RAD REPORT ---
EXAM DESCRIPTION: CT - Head Brain Wo Cont - 06/04/2020 7:38 pm CLINICAL HISTORY: DIZZINESS Headache, drowsiness COMPARISON: Head Brain Wo Cont dated 01/03/2016 TECHNIQUE: All CT scans are performed using dose optimization technique as appropriate and may inclu de automated exposure control or mA/KV adjustment according to patient size. FINDINGS: No intracranial hemorrhage, hydrocephalus or extra-axial fluid collection. Mild generalized brain atrophy is present with mild periventricular and deep white matter chronic mi crovascular ischemic changes. Old lacunar infarcts noted bilaterally. High density opacification of frontal and left ethmoid air cells noted. The calvarium is intact. Vert ebral arteries are calcified. IMPRESSION: No acute intracranial abnormality. High density opacification of the left frontal and ethmoid sinuses noted. This may represent allergic fungal sinusitis.
[2020-06-04 20:02] LABS: ALT/SGPT 19 U/L (12-78); AST/SGOT 14 U/L (15-37); Albumin 3.2 g/dL (3.4-5.0); Alkaline Phosphatase 84 U/L (45-117); BUN Blood Urea Nitrogen 26 mg/dL (7-18); Bicarbonate 29 mmol/L (21-32); Bilirubin Direct < 0.1 mg/dL (0-0.2); Bilirubin Total 0.3 mg/dL (0.2-1.0); Glucose Level 86 mg/dL (74-106); Magnesium 2.3 mg/dL (1.8-2.4); NT PRO-BNP 354 pg/mL (<125); Potassium 4.6 mmol/L (3.5-5.1); Protein, Total 7.5 g/dL (6.4-8.2); Sodium Level 141 mmol/L (136-145); Troponin (Emerg Dept Use Only) < 0.02 ng/mL (0.0-0.045)
--- NOTE | 2020-06-04 20:39 | RAD REPORT ---
EXAM DESCRIPTION: RAD - Chest Single View - 06/04/2020 8:19 pm CLINICAL HISTORY: Dizziness Chest pain. COMPARISON: Chest Single View dated 08/29/2018; Chest Pa And Lat (2 Views) dated 05/22/2018; Chest Sing le View dated 01/31/2018; Chest Single View dated 03/17/2017 FINDINGS: Portable technique limits examination quality. Mild interstitial pulmonary edema. The heart is mildly prominent size with multilead pacer device. No displaced fractures. IMPRESSION: Mild CHF.
[2020-06-04 20:40] LABS: Urine Blood NEGATIVE (NEG); Urine Glucose NEGATIVE (NEG); Urine Protein NEGATIVE (NEG); Urine Specific Gravity 1.025 (1.005-1.030)
--- NOTE | 2020-06-04 21:44 | ER ---
Nurse's Notes [facility] Name: Ángel Haddad Age: 65 yrs Sex: Male : 1955 Arrival Date: 06/04/2020 Time: 16:56 Bed 24 Private MD: Jose Aguilar E Diagnosis: Dizziness and giddiness;Ataxia, unspecified;Acute ethmoidal sinusitis;Acute frontal sinusitis;CHF Exacerbation Presentation: 06/04 17:03 Chief complaint: Spouse and/or significant other states: He had the 1st dose of the ca1 Covid Vaccine this morning at [place]. He got dizzy and lightheaded, not walking straight, and was slurring his words at that time. Symptoms started at 1215. HX of CVA x 5. HX of heart attacks x 8. Pt has a pacemaker. A\T\Ox4. No slurring at this time. VAN negative. Coronavirus screen: Client denies travel out of the [place] in the last 14 days. At this time, the client does not indicate any symptoms associated with coronavirus-19. Ebola Screen: Patient negative for fever greater than or equal to 101.5 degrees Fahrenheit, and additional compatible Ebola Virus Disease symptoms Patient denies exposure to infectious person. Patient denies travel to an Ebola-affected area in the 21 days before illness onset. No symptoms or risks identified at this time. Initial Sepsis Screen: Does the patient meet any 2 criteria? No. Patient's initial sepsis screen is negative. Does the patient have a suspected source of infection? No. Patient's initial sepsis screen is negative. Risk Assessment: Do you want to hurt yourself or someone else? Patient reports no desire to harm self or others. Onset of symptoms was June 04, 2020 at 12:15. 17:03 Method Of Arrival: Wheelchair ca1 17:03 Acuity: MARGO 3 ca1 Historical: - Allergies: 17:11 apixaban; ca1 17:11 CLOPIDOGREL; ca1 17:11 tramadol; ca1 - PMHx: 17:11 Atrial Fib; CVA; kidney failure; Myocardial infarction; Pace maker; ca1 - PSHx: 17:11 pace maker; cardiac ablation; cardiac cath; Cholecystectomy; Appendectomy; cardiac ca1 bypass; - Immunization history:: Client reports receiving the 1st dose of the Covid vaccine, June 04, 2020 Pneumococcal vaccine is up to date, Flu vaccine is not up to date. - Social history:: Smoking status: Patient denies any tobacco usage or history of. Screenin:32 Abuse screen: Denies threats or abuse. Nutritional screening: No deficits noted. vg1 Tuberculosis screening: No symptoms or risk factors identified. Fall Risk No fall in past 12 months (0 pts). No secondary diagnosis (0 pts). IV access (20 points). Ambulatory Aid- None/Bed Rest/Nurse Assist (0 pts). Gait- Normal/Bed Rest/Wheelchair (0 pts) Mental Status- Oriented to own ability (0 pts). Total Leal Fall Scale indicates No Risk (0-24 pts). Assessment: 19:30 General: Appears in no apparent distress. comfortable, Behavior is calm, cooperative. vg1 Pain: Denies pain. Neuro: Level of Consciousness is awake, alert, obeys commands, Oriented to person, place, time, situation, Reports dizziness, States 'the room feels like its spinning'. Cardiovascular: Patient's skin is warm and dry. Cardiovascular: Reports has a pacemaker. Respiratory: Airway is patent Respiratory effort is even, unlabored. GI: No signs and/or symptoms were reported involving the gastrointestinal system. : No signs and/or symptoms were reported regarding the genitourinary system. EENT: No signs and/or symptoms were reported regarding the EENT system. Derm: Skin is intact, Skin is pink, warm \T\ dry. Musculoskeletal: Circulation, motion, and sensation intact. 20:29 Reassessment: Patient appears in no apparent distress at this time. No changes from vg1 previously documented assessment. Patient and/or family updated on plan of care and expected duration. Pain level reassessed. Patient is alert, oriented x 3, equal unlabored respirations, skin warm/dry/pink. 21:11 Reassessment: [phone] Dana, . Please call for updates. dm5 21:30 Reassessment: Patient appears in no apparent distress at this time. No changes from vg1 previously documented assessment. Patient and/or family updated on plan of care and expected duration. Pain level reassessed. Patient is alert, oriented x 3, equal unlabored respirations, skin warm/dry/pink. 22:59 Reassessment: Patient appears in no apparent distress at this time. No changes from vg1 previously documented assessment. Patient and/or family updated on plan of care and expected duration. Pain level reassessed. Patient is alert, oriented x 3, equal unlabored respirations, skin warm/dry/pink. Vital Signs: 17:03 BP 100 / 62; Pulse 87; Resp 18 S; Temp 97.1(TE); Pulse Ox 96% on R/A; Weight 95.25 kg ca1 (R); Height 6 ft. 2 in. (187.96 cm) (R); Pain 0/10; 19:31 BP 120 / 84; Pulse 82; Resp 20; Pulse Ox 97% on R/A; vg1 20:17 BP 133 / 90 Supine; Pulse 83; vg1 20:20 BP 144 / 95 Sitting; Pulse 79; vg1 20:23 BP 109 / 77 Standing; Pulse 84; vg1 21:30 BP 136 / 97; Pulse 80; Resp 18; Pulse Ox 97% on R/A; vg1 22:30 BP 146 / 92; Pulse 87; Resp 18; Pulse Ox 100% on R/A; vg1 23:00 BP 152 / 96; Pulse 80; Resp 18; Pulse Ox 100% on R/A; vg1 17:03 Body Mass Index 26.96 (95.25 kg, 187.96 cm) ca1 ED Course: 16:56 Patient arrived in ED. am2 16:56 Jose Aguilar MD is Private Physician. am2 17:09 Triage completed. ca1 17:11 Arm band placed on right wrist. ca1 19:02 Ranjan Soares MD is Attending Physician. 7 19:17 Samantha Carolina, RN is Primary Nurse. vg1 19:[address] via wheelchair. vg1 19:32 Patient has correct armband on for positive identification. Bed in low position. Call [facility] light in reach. Side rails up X 1. 19:34 Inserted saline lock: 20 gauge in right forearm, using aseptic technique. Blood dh4 collected. 19:37 CT Head Brain wo Cont In Process Unspecified. EDMS 20:19 XRAY Chest (1 view) In Process Unspecified. EDMS 21:42 Rodney Johnson MD is Hospitalizing Provider. [facility] 22:50 COVID swab sent to lab. [facility] 06/05 01:27 No provider procedures requiring assistance completed. Patient admitted, IV remains in dm5 place. Administered Medications: 06/04 22:58 Drug: Rocephin - (cefTRIAXone) 1 grams Route: IVPB; Infused Over: 30 mins; Site: right vg1 forearm; 23:48 Follow up: IV Status: Completed infusion vg1 :58 Drug: Aspirin Chewable Tablet 324 mg Route: PO; vg1 23:49 Follow up: Response: No adverse reaction vg1 22:58 Drug: foLIC Acid 1 mg Route: PO; vg1 23:49 Follow up: Response: No adverse reaction vg1 Outcome: 21:44 Decision to Hospitalize by Provider. mh7 06/05 01:27 Admitted to Med/surg accompanied by nurse, via stretcher, Report called to Miguel Ángel white Condition: stable Discharge instructions given to patient, Instructed on the need for admit. 01:52 Patient left the ED. sg Signatures: Dispatcher [employer] EDMS Tiffani Solis RN RN dm5 Mike Chun RN RN sg Angeles Orantes am2 Keesha Toussaint RN RN ca1 Everardo Monteiro 4 Samantha Carolina RN RN vg1 Ranjan Soares MD MD 7 Corrections: (The following items were deleted from the chart) 06/04 17:11 17:03 Onset of symptoms was June 04, 2020 ca1 ca1 17:12 17:03 Chief complaint: Spouse and/or significant other states: He had the 1st dose of ca1 the Covid Vaccine this morning at [place]. He got dizzy and lightheaded, not walking straight, and was slurring his words. Symptoms started at 1215. HX of CVA x 5. HX of heart attacks x 8. Pt has a pacemaker. ca1 22:57 Rocephin - (cefTRIAXone) 1 grams IVPB in right antecubital over 30 mins vg1 vg1 23:31 23:30 Reassessment: Pt is actively seizing. Provider notified. vg1 vg1
--- NOTE | 2020-06-04 21:44 | EDPHYS ---
Physician Documentation [facility] Name: Ángel Haddad Age: 65 yrs Sex: Male : 1955 Arrival Date: 06/04/2020 Time: 16:56 Bed 24 Private MD: Jose Aguilar E ED Physician Ranjan Soares HPI: 06/04 20:19 This 65 yrs old Male presents to ER via Wheelchair with complaints of mh7 Dizziness - after covid vaccines. 20:19 The patient presents with dizziness, lightheadedness, feeling off balance, sense of mh7 spinning. Onset: The symptoms/episode began/occurred today, at 12:15. Context: occurred Clinic after receiving COVID vaccine, occurred while the patient was sitting, just prior to the episode the patient experienced no apparent symptoms. Modifying factors: The symptoms are alleviated by nothing, the symptoms are aggravated by standing up. 20:21 Associated signs and symptoms: Pertinent positives: ataxia, Pertinent negatives: mh7 abdominal pain, agitation, blurred vision, chest pain, combativeness, confusion, diaphoresis, focal weakness, head injury, headache, nausea, numbness, palpitations, , seizure, shortness of breath, syncope, tingling, vomiting. Severity of symptoms: At their worst the symptoms were moderate today, in the emergency department the symptoms have improved moderately. Patient's baseline: Neuro: alert and fully oriented, Motor: no deficits, Ambulation: walks without assistance, Speech: normal, The patient has a previous history of CVA. Patient reports feeling dizzy about 5 minutes after receiving first dose of COVID vaccine today. He describes lightheaded, spinning sensation and feeling off balance. Family stated that he also had slurred speech which has since resolved. He denies any headache, chest pain, abdominal pain, SOB, nausea, vomiting, diarrhea, numbness/tingling, or weakness.. Historical: - Allergies: 17:11 apixaban; ca1 17:11 CLOPIDOGREL; ca1 17:11 tramadol; ca1 - PMHx: 17:11 Atrial Fib; CVA; kidney failure; Myocardial infarction; Pace maker; ca1 - PSHx: 17:11 pace maker; cardiac ablation; cardiac cath; Cholecystectomy; Appendectomy; cardiac ca1 bypass; - Immunization history:: Client reports receiving the 1st dose of the Covid vaccine, June 04, 2020 Pneumococcal vaccine is up to date, Flu vaccine is not up to date. - Social history:: Smoking status: Patient denies any tobacco usage or history of. ROS: 20:21 Constitutional: Negative for fever, chills, and weight loss, Eyes: Negative for injury, mh7 pain, redness, and discharge, ENT: Negative for injury, pain, and discharge, Neck: Negative for injury, pain, and swelling, Cardiovascular: Negative for chest pain, palpitations, and edema, Respiratory: Negative for shortness of breath, cough, wheezing, and pleuritic chest pain, Abdomen/GI: Negative for abdominal pain, nausea, vomiting, diarrhea, and constipation, Back: Negative for injury and pain, : Negative for injury, bleeding, discharge, and swelling, MS/Extremity: Negative for injury and deformity, Skin: Negative for injury, rash, and discoloration, Psych: Negative for depression, anxiety, suicide ideation, homicidal ideation, and hallucinations, Allergy/Immunology: Negative for hives, rash, and allergies, Endocrine: Negative for neck swelling, polydipsia, polyuria, polyphagia, and marked weight changes, Hematologic/Lymphatic: Negative for swollen nodes, abnormal bleeding, and unusual bruising. Exam: 20:21 Constitutional: This is a well developed, well nourished patient who is awake, alert, mh7 and in no acute distress. Head/Face: Normocephalic, atraumatic. Eyes: Pupils equal round and reactive to light, extra-ocular motions intact. Lids and lashes normal. Conjunctiva and sclera are non-icteric and not injected. Cornea within normal limits. Periorbital areas with no swelling, redness, or edema. Neck: Trachea midline, no thyromegaly or masses palpated, and no cervical lymphadenopathy. Supple, full range of motion without nuchal rigidity, or vertebral point tenderness. No Meningismus. Chest/axilla: Normal chest wall appearance and motion. Nontender with no deformity. No lesions are appreciated. Cardiovascular: Regular rate and rhythm with a normal S1 and S2. No gallops, murmurs, or rubs. Normal PMI, no JVD. No pulse deficits. Respiratory: Lungs have equal breath sounds bilaterally, clear to auscultation and percussion. No rales, rhonchi or wheezes noted. No increased work of breathing, no retractions or nasal flaring. Abdomen/GI: Soft, non-tender, with normal bowel sounds. No distension or tympany. No guarding or rebound. No evidence of tenderness throughout. Back: No spinal tenderness. No costovertebral tenderness. Full range of motion. Skin: Warm, dry with normal turgor. Normal color with no rashes, no lesions, and no evidence of cellulitis. MS/ Extremity: Pulses equal, no cyanosis. Neurovascular intact. Full, normal range of motion. 20:21 Psych: Awake, alert, with orientation to person, place and time. Behavior, mood, and affect are within normal limits. 20:21 Neuro: Orientation: is normal, Mentation: is normal, Memory: is normal, Cranial nerves: grossly normal, Cerebellar function: is grossly normal, , Motor: is normal, Sensation: is normal, Gait: ataxic, seizure activity, is not displayed by the patient, Abnormal movements: there are no abnormal movements. Vital Signs: 17:03 BP 100 / 62; Pulse 87; Resp 18 S; Temp 97.1(TE); Pulse Ox 96% on R/A; Weight 95.25 kg ca1 (R); Height 6 ft. 2 in. (187.96 cm) (R); Pain 0/10; 19:31 BP 120 / 84; Pulse 82; Resp 20; Pulse Ox 97% on R/A; vg1 20:17 BP 133 / 90 Supine; Pulse 83; vg1 20:20 BP 144 / 95 Sitting; Pulse 79; vg1 20:23 BP 109 / 77 Standing; Pulse 84; vg1 21:30 BP 136 / 97; Pulse 80; Resp 18; Pulse Ox 97% on R/A; vg1 22:30 BP 146 / 92; Pulse 87; Resp 18; Pulse Ox 100% on R/A; vg1 23:00 BP 152 / 96; Pulse 80; Resp 18; Pulse Ox 100% on R/A; vg1 17:03 Body Mass Index 26.96 (95.25 kg, 187.96 cm) ca1 MDM: 21:41 Differential diagnosis: cardiac arrhythmia, CVA, hypovolemia, idiopathic dizziness, mh7 near-syncope, syncope, TIA, vertigo. Data reviewed: vital signs, nurses notes, old medical records, lab test result(s), cardiac enzymes, CBC, electrolytes, urinalysis, EKG, radiologic studies, CT scan, plain films. Data interpreted: Pulse oximetry: on room air is 97 %. Interpretation: normal. Counseling: I had a detailed discussion with the patient and/or guardian regarding: the historical points, exam findings, and any diagnostic results supporting the discharge/admit diagnosis, the presence of at least one elevated blood pressure reading (>120/80) during this emergency department visit, lab results, radiology results, the need for further work-up and treatment in the hospital. Response to treatment: the patient's symptoms have markedly improved after treatment. 21:44 Patient medically screened. [facility] 06/04 19:16 Order name: Basic Metabolic Panel [facility] 06/04 19:16 Order name: CBC with Diff [facility] 06/04 19:16 Order name: LFT's [facility] 06/04 19:16 Order name: Magnesium [facility] 06/04 19:16 Order name: NT PRO-BNP [facility] 06/04 19:16 Order name: PT-INR; Complete Time: 20:18 7 06/04 19:16 Order name: Troponin (emerg Dept Use Only); Complete Time: 20:18 [facility] 06/04 19:16 Order name: Basic Metabolic Panel; Complete Time: 20:18 EDMS 06/04 19:16 Order name: CBC with Automated Diff; Complete Time: 20:18 EDMS 06/04 19:16 Order name: Liver (Hepatic) Function; Complete Time: 20:18 EDMS 06/04 19:16 Order name: Magnesium; Complete Time: 20:18 EDMS 06/04 19:17 Order name: NT PRO-BNP; Complete Time: 20:18 EDMS 06/04 20:32 Order name: Urine Dipstick--Ancillary (enter results); Complete Time: 20:52 tt3 06/04 19:16 Order name: XRAY Chest (1 view); Complete Time: 20:52 7 06/04 19:16 Order name: EKG; Complete Time: 19:17 7 06/04 19:16 Order name: Cardiac monitoring; Complete Time: 19:57 7 06/04 19:16 Order name: EKG - Nurse/Tech; Complete Time: 19:57 7 06/04 19:16 Order name: IV Saline Lock; Complete Time: 19:35 [facility] 06/04 19:16 Order name: Labs collected and sent; Complete Time: 19:35 [facility] 06/04 19:16 Order name: O2 Per Protocol; Complete Time: 19:18 [facility] 06/04 19:16 Order name: O2 Sat Monitoring; Complete Time: 19:18 [facility] 06/04 19:16 Order name: Urine Dipstick-Ancillary (obtain specimen); Complete Time: 20:29 [facility] 06/04 19:17 Order name: Orthostatics; Complete Time: 19:28 [facility] 06/04 19:17 Order name: CT Head Brain wo Cont; Complete Time: 20:18 [facility] 06/05 00:02 Order name: SARS-COV-2 RT PCR EDMS Administered Medications: 22:58 Drug: Rocephin - (cefTRIAXone) 1 grams Route: IVPB; Infused Over: 30 mins; Site: right vg1 forearm; 23:48 Follow up: IV Status: Completed infusion vg1 22:58 Drug: Aspirin Chewable Tablet 324 mg Route: PO; vg1 23:49 Follow up: Response: No adverse reaction vg1 22:58 Drug: foLIC Acid 1 mg Route: PO; vg1 23:49 Follow up: Response: No adverse reaction vg1 Disposition: 06/04/20 21:44 Hospitalization ordered by Rodney Johnson for Observation. Preliminary diagnosis are Dizziness and giddiness, Ataxia, unspecified, Acute ethmoidal sinusitis, Acute frontal sinusitis, CHF Exacerbation. - Bed requested for Telemetry/MedSurg (observation). - Status is Observation. sg - Condition is Stable. - Problem is new. - Symptoms have improved. Signatures: Dispatcher [employer] [facility] Mike Chun RN RN sg Flo Darby, SHOULDER JOINER-C SHOULDER JOINER-Cla1 Keesha Toussaint RN RN ca1 Samantha Carolina RN RN vg1 Ranjan Soares MD MD 7 Domitila Torres RN RN rd1 Corrections: (The following items were deleted from the chart) 23:15 22:39 CORONAVIRUS+.MARLINZ ordered. [facility] 06/05 00:23 06/04 21:44 Hospitalization Ordered by Rodney Johnson MD for Observation. Preliminary rd1 diagnosis is Dizziness and giddiness; Ataxia, unspecified; Acute ethmoidal sinusitis; Acute frontal sinusitis; CHF Exacerbation. Bed requested for Telemetry/MedSurg (observation). Status is Observation. Condition is Stable. Problem is new. Symptoms have improved. mh7 06/05 01:52 00:23 06/04/2020 21:44 Hospitalization Ordered by Rodney Johnson MD for Observation. sg Preliminary diagnosis is Dizziness and giddiness; Ataxia, unspecified; Acute ethmoidal sinusitis; Acute frontal sinusitis; CHF Exacerbation. Bed requested for Telemetry/MedSurg (observation). Status is Observation. Condition is Stable. Problem is new. Symptoms have improved. rd1
[2020-06-04] MEDS ORDERED: CEFTRIAXONE/SWI 1gm 1 GM/10 ML SYR ONE (22:48)
[2020-06-04] MEDS ORDERED: ASPIRIN 81 MG CHEWABLE TABLET ONE (23:02)
[2020-06-04] MEDS ORDERED: FOLIC ACID 1 MG TABLET ONE (23:03)
--- NOTE | 2020-06-04 23:47 | P.HP ---
Certification for Inpatient Patient admitted to: Observation With expected LOS: <2 Midnights Patient will require the following post-hospital care: None Practitioner: I am a practitioner with admitting privileges, knowledge of patient current condition, hospital course, and medical plan of care. Services: Services provided to patient in accordance with Admission requirements found in Title 42 Section 412.3 of the Code of Federal Regulations <Flo Darby - Last Filed: 06/04/20 23:38> Patient History Date of Service: 06/04/20 Primary Care Provider: Doctor Aguilar Reason for admission: Dizziness, ataxia History of Present Illness: 65-year-old male with history of atrial fibrillation status post Watchman procedure, CAD status post CABG, CVA, CKD, pacemaker/defibrillator presents emergency department for dizziness/ataxia. Patient reports that today around 02/2015 he received the 1st dose of the Pfizer vaccine and around 3-4 p.m. began experiencing dizziness, gait instability, generalized weakness. Patient presented to the emergency department for evaluation, symptoms have improved significantly but still having some gait ataxia. Evaluation in the emergency department significant for creatinine 2.34 GFR 28 baseline GFR appears to be around 35-40 BNP 354 chest x-ray demonstrates mild CHF head CT no acute findings, high-density opacification in the left frontal ethmoid sinuses noted which may represent allergic fungal sinusitis. Old lacunar are infarcts noted bilaterally. 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 eye surgery -: heart stents -: Hernia repair -: thyroid surgery -: Nerve re-channeling to R. arm -: apendectomy -: pacemaker Psychosocial/ Personal History: Patient is retired, lives at home with his - Family History Father -: Heart disease, Kidney disease Notes: sacoidosis Mother -: Heart disease Notes: dementia, alzheimers Brother -: Heart disease, Stroke - Social History Alcohol use: No CD- Drugs: No Caffeine use: No Place of Residence: Home <AshleyFlo meza - Last Filed: 03/19/21 23:38> Date of Service: 06/05/20 <Rodney Johnson - Last Filed: 06/05/20 21:29> Allergies apixaban [From Eliquis] Allergy (Severe, Verified 06/05/20 01:51) Itching/Hives/Rash tramadol Allergy (Severe, Verified 06/05/20 01:51) Nausea/Vomiting clopidogrel [From Plavix] Allergy (Intermediate, Verified 06/05/20 01:51) Itching/Hives/Rash dabigatran etexilate [From Pradaxa] Allergy (Verified 06/05/20 01:51) Hives/Rash Adhesives Allergy (Severe, Uncoded 06/05/20 01:51) Hives/Rash Home Medications: Amoxicillin/Potassium Clav [Augmentin 500-125 Tablet] 1 tab PO BID 7 Days #14 tablet 06/05/20 Famotidine [Pepcid] 10 mg PO PCB 06/05/20 Meclizine HCl 12.5 mg PO DAILY MDD 25 06/05/20 Naproxen [Naprosyn*] 220 mg PO PRN 06/05/20 Ramipril [Altace] 10 mg PO DAILY 06/05/20 SUMAtriptan [Sumatriptan] 50 mg PO PRN 06/05/20 Review of Systems 10-point ROS is otherwise unremarkable Neurological: Weakness, Other (Difficulty walking), As per HPI <Flo Darby - Last Filed: 06/04/20 23:38> Physical Examination - Physical Exam General: Alert, In no apparent distress HEENT: Atraumatic, PERRLA, Mucous membr. moist/pink Neck: Supple, 2+ carotid pulse no bruit, No LAD Respiratory: Clear to auscultation bilaterally, Normal air movement Cardiovascular: Regular rate/rhythm, Normal S1 S2 Gastrointestinal: Normal bowel sounds, No tenderness Musculoskeletal: No tenderness Integumentary: No rashes Neurological: Normal speech, Normal strength at 5/5 x4 extr, Normal tone, Sensation intact, Normal affect, Other (Patient with previous right eye surgeries that lead to some deviation of the right eye. [id number] normal. Patient states symptoms have improved.), Abnormal gait (Some difficulty with gait over baseline.) Lymphatics: No axilla or inguinal lymphadenopathy - Studies Laboratory Data (last 24 hrs) 06/04/20 19:31: PT 13.1 H, INR 1.14 06/04/20 19:31: WBC 5.40, Hgb 11.6 L, Hct 37.6 L, Plt Count 220 06/04/20 19:31: Sodium 141, Potassium 4.6, BUN 26 H, Creatinine 2.34 H, Glucose 86, Magnesium 2.3, Total Bilirubin 0.3, AST 14 L, ALT 19, Alkaline Phosphatase 84 <Flo Darby - Last Filed: 06/04/20 23:38> - Studies Laboratory Data (last 24 hrs) 06/04/20 19:31: Uric Acid 4.1 <Rodney Johnson - Last Filed: 06/05/20 21:29> Assessment and Plan - Plan Assessment Dizziness/ataxia secondary to vaccine adverse reaction versus TIA Atrial fibrillation S/P Watchman procedure Acute kidney injury superimposed on CKD 3 Chronic diastolic congestive heart failure History of CVA CAD s/p CABG and previous stenting Hypertension, secondary hypothyroidism, GERD, Gout Plan Dizziness/ataxia secondary to vaccine adverse reaction versus TIA: Continue with aspirin, folic acid, neuro checks. Patient only with some mild gait disturbance at this time. Neurology consult in place. Patient with pacemaker/defibrillator likely cannot have MRI. Patient allergic to anti- platelet/NOACS but reports he can't take aspirin. Patient has Watchman implant in place, will continue with SCDs in addition for DVT prophylaxis Atrial fibrillation S/P Watchman procedure: Rate controlled, appears stable. Sotalol continued. Acute kidney injury superimposed on CKD 3: CPK, uric acid levels obtained, nephrology consult in place. Renal ultrasound ordered. May need to adjust medication doses. Chronic diastolic congestive heart failure: Obtain and continue home medications as appropriate. No peripheral edema or shortness of breath noted, no oxygen requirement. Chest x-ray suggests mild overload. Last echocardiogram from 2018 demonstrates 69% ejection fraction. History of CVA: Obtain and continue home meds CAD s/p CABG and previous stenting: Obtain and continue home meds Hypertension, secondary hypothyroidism, GERD, Gout: Chronic, stable, continue home meds. Discharge Plan: Home Plan to discharge in: 24 Hours - Advance Directives Does patient have a Living Will: No Does patient have a Durable POA for Healthcare: No - Code Status/Comfort Care Code Status Assessed: Yes (Full code) Critical Care: No Time Spent Managing Pts Care (In Minutes): 55 <Flo Darby - Last Filed: 06/04/20 23:38> - Plan Plan of care reviewed as noted above. Dizziness / ataxia, possible TIA PT ordered, check carotid U/S, unable to obtain MRI <Rodney Johnson - Last Filed: 06/05/20 21:29>
[2020-06-05 01:54] VITALS: BMI 29.0
[2020-06-05] MEDS ORDERED: ONDANSETRON 4 MG/2 ML VIAL IV PRN (01:54)
[2020-06-05] MEDS ORDERED: BACLOFEN 10 MG TAB PO PRN (01:54)
[2020-06-05] MEDS: ACETAMINOPHEN 500 MG TAB PO PRN ×2 (02:20→16:55)
[2020-06-05 03:13] LABS: Absolute Lymphocytes (CBC) 1.4 K/uL (0.7-4.9); Basophils % 0.9 % (0-1.3); Hematocrit 35.8 % (39.6-49.0); Lymphocytes % 26.1 % (15.3-44.8); MPV 8.8 fL (7.6-11.3); RBC Red Blood Cell Count 4.33 M/uL (4.33-5.43)
[2020-06-05 03:37] LABS: Albumin 2.8 g/dL (3.4-5.0); Bilirubin Total 0.3 mg/dL (0.2-1.0); Magnesium 2.3 mg/dL (1.8-2.4); Potassium 4.3 mmol/L (3.5-5.1); Protein, Total 6.9 g/dL (6.4-8.2)
[2020-06-05 03:39] LABS: Thyroid Stimulating Hormone 0.034 uIU/mL (0.360-3.740)
[2020-06-05] MEDS: SOTALOL HCL 80 MG TAB PO SCH ×2 (05:45→18:40)
[2020-06-05] MEDS ORDERED: PANTOPRAZOLE 40MG TABLET PO SCH (06:30)
[2020-06-05] MEDS ORDERED: LEVOTHYROXINE SOD 0.125 MG TAB PO SCH (06:30)
[2020-06-05] MEDS ORDERED: LEVOTHYROXINE SOD 0.025 MG TAB PO SCH (06:30)
[2020-06-05] MEDS ORDERED: allopurinoL 100 MG TAB PO SCH (09:00)
[2020-06-05] MEDS ORDERED: HEPARIN 5000 UNIT/ML 1 ML VIAL SQ SCH (09:00)
[2020-06-05] MEDS ORDERED: FOLIC ACID 1 MG TABLET PO SCH (09:00)
[2020-06-05] MEDS ORDERED: ASPIRIN EC 81 MG TAB PO SCH (09:00)
[2020-06-05] MEDS ORDERED: ESCITALOPRAM 20 MG TAB PO SCH (09:00)
--- NOTE | 2020-06-05 09:34 | P.CNS ---
Reason for Consult: MORRIS, CKD3 Primary Care Provider: Doctor Aguilar Chief Complaint: Dizziness, ataxia History of Present Illness: 65M w/ PMHx of CKD3, afib s/p Watchman, CAD s/p CABG, CVA, & s/p pacemaker/defibrillator who p/w dizziness/ataxia. He received 1st dose of [employer] covid vaccine yesterday & shortly thereafter he developed ataxia & had slurring of speech. Head CT showed no acute findings. Neurologic sxs are now resolved. He has CKD3 w/ baseline SCr 1.7-1.8. SCr noted to be inc to 2.3 on admission. He denies N/V/D/poor po intake/NSAID use. Allergies apixaban [From Eliquis] Allergy (Severe, Verified 06/05/20 01:51) Itching/Hives/Rash tramadol Allergy (Severe, Verified 06/05/20 01:51) Nausea/Vomiting clopidogrel [From Plavix] Allergy (Intermediate, Verified 06/05/20 01:51) Itching/Hives/Rash dabigatran etexilate [From Pradaxa] Allergy (Verified 06/05/20 01:51) Hives/Rash Adhesives Allergy (Severe, Uncoded 06/05/20 01:51) Hives/Rash Home Medications: Amoxicillin/Potassium Clav [Augmentin 500-125 Tablet] 1 tab PO BID 7 Days #14 tablet 06/05/20 Famotidine [Pepcid] 10 mg PO PCB 06/05/20 Meclizine HCl 12.5 mg PO DAILY MDD 25 06/05/20 Naproxen [Naprosyn*] 220 mg PO PRN 06/05/20 Ramipril [Altace] 10 mg PO DAILY 06/05/20 SUMAtriptan [Sumatriptan] 50 mg PO PRN 06/05/20 - Past Medical/Surgical History Diabetic: No -: 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 eye surgery -: heart stents -: Hernia repair -: thyroid surgery -: Nerve re-channeling to R. arm -: apendectomy -: pacemaker Psychosocial/ Personal History: Patient is retired, lives at home with his - Family History Father Medical History: Heart disease, Kidney disease Notes: sacoidosis Mother Medical History: Heart disease Notes: dementia, alzheimers Brother Medical History: Heart disease, Stroke - Social History Smoking Status: Unknown if ever smoked Alcohol use: No CD- Drugs: No Caffeine use: Yes Place of Residence: Home Review of Systems General: Other (appears as stated age) Eyes: Unremarkable ENT: Unremarkable Respiratory: Unremarkable Cardiovascular: Unremarkable Gastrointestinal: Unremarkable Genitourinary: Unremarkable Musculoskeletal: Unremarkable Integumentary: Unremarkable Neurological: Incoordination, Other (Ataxia, Speech slurring) Lymphatics: Unremarkable Physical Examination Temp Pulse Resp BP Pulse Ox 96.8 F 82 20 121/63 92 06/05/20 04:00 06/05/20 04:00 06/05/20 04:00 06/05/20 04:00 06/05/20 04:00 General: In no apparent distress HEENT: Atraumatic, Normocephalic Neck: Supple, Without JVD or thyroid abnormality Respiratory: Clear to auscultation bilaterally Cardiovascular: Normal S1 S2, No murmurs Capillary refill: Brisk Gastrointestinal: Soft and benign, Non-distended Musculoskeletal: No clubbing, No swelling Integumentary: Other (Normal temp) Neurological: Normal tone Lymphatics: No axilla or inguinal lymphadenopathy Urinary: Other (No rodriguez) External genitalia: Deferred Rectal: Deferred Laboratory Data (last 24 hrs) 06/04/20 19:31: Uric Acid 4.1 06/04/20 19:31: PT 13.1 H, INR 1.14 06/04/20 19:31: WBC 5.40, Hgb 11.6 L, Hct 37.6 L, Plt Count 220 06/04/20 19:31: Sodium 141, Potassium 4.6, BUN 26 H, Creatinine 2.34 H, Glucose 86, Magnesium 2.3, Total Bilirubin 0.3, AST 14 L, ALT 19, Alkaline Phosphatase 84 Conclusions/Impression: # MORRIS, unclear etiology, probably related to transient renal hypoperfusion related to acute cardiac issues SCr 2.3 on hosp adm Baseline SCr 1.7-1.8 Urinalysis & renal US unremarkable [place] po fluid intake Monitor renal panel Pt w/ lowish BP episodes. Would request Cardiology to review defib device to see if there was any arrythmic event that could have led to poor frwd flow & hence MORRIS # Acute, sudden onset neuro deficits that's either a rxn to covid vaccine vs TIA Head CT no acute issues, except for sinusits finding Mngt per primary team Augmentin x 7d # Afib s/p watchman, CAD s/p CABG Reported to be intolerant ot anti-plt & NOAC Mngt per other services # Dispo Ok w/ dc plan today F/u in renal clinic
[2020-06-05] MEDS ORDERED: HYDRALAZINE HCL 20 MG/ML VIAL IV PRN (17:05)
--- NOTE | 2020-06-05 19:25 | RAD REPORT ---
EXAM DESCRIPTION: - CP - 06/05/2020 7:19 pm CLINICAL HISTORY: dizziness/ataxia Headache, drowsiness COMPARISON: Carotid Artery Bilateral dated 01/04/2016 TECHNIQUE: Real-time sonographic evaluation of both carotid systems was performed. Doppler interroga tion was performed with waveform tracing bilaterally. FINDINGS: Normal high resistance waveforms are noted in both external carotid arteries. The common c arotid arteries and internal carotid arteries show normal low resistance waveforms. Mild to moderate hard plaque is seen in both carotid bulbs. Peak systolic and end diastolic velocity values and the ICA/CCA ratios are in the non-hemodynamically significant range. Antegrade flow seen in both vertebral arteries. IMPRESSION: Mild to moderate hard plaque in both carotid bulbs. No evidence of a hemodynamically significant stenosis.
--- NOTE | 2020-06-05 19:28 | RAD REPORT ---
EXAM DESCRIPTION: US - Renal Ultrasound-Complete - 06/05/2020 7:19 pm CLINICAL HISTORY: serge Flank pain COMPARISON: No comparisons FINDINGS: Both kidneys are mildly echogenic. The right kidney measures 9.4 x 5.0 x 4.7 cm. No hydronephrosis, focal mass or perinephric fluid. The left kidney measures 9.7 x 5.1 x 3.8 cm. No hydronephrosis, focal mass or perinephric fluid. The urinary bladder is incompletely distended without gross abnormality seen. IMPRESSION: Mildly echogenic kidneys bilaterally compatible with medical renal disease.
--- NOTE | 2020-06-05 19:57 | P.DS ---
Admission Date: 06/04/20 Discharge Date: 06/05/20 Primary Care Provider: Doctor Aguilar Disposition: ROUTINE DISCHARGE Discharge Condition: GOOD Reason for Admission: Dizziness, ataxia Consultations: Nephrology Dr. Jimenez Procedures: Carotid artery ultrasound FINDINGS: Normal high resistance waveforms are noted in both external carotid arteries. The common carotid arteries and internal carotid arteries show normal low resistance waveforms. Mild to moderate hard plaque is seen in both carotid bulbs. Peak systolic and end diastolic velocity values and the ICA/CCA ratios are in the non- hemodynamically significant range. Antegrade flow seen in both vertebral arteries. IMPRESSION: Mild to moderate hard plaque in both carotid bulbs. No evidence of a hemodynamically significant stenosis. Chest x-ray FINDINGS: Portable technique limits examination quality. Mild interstitial pulmonary edema. The heart is mildly prominent size with multilead pacer device. No displaced fractures. IMPRESSION: Mild CHF. CT head FINDINGS: No intracranial hemorrhage, hydrocephalus or extra-axial fluid collection. Mild generalized brain atrophy is present with mild periventricular and deep wh ite matter chronic microvascular ischemic changes. Old lacunar infarcts noted bilaterally. High density opacification of frontal and left ethmoid air cells noted. The calvarium is intact. Vertebral arteries are calcified. IMPRESSION: No acute intracranial abnormality. High density opacification of the left frontal and ethmoid sinuses noted. This may represent allergic fungal sinusitis. Renal ultrasound FINDINGS: Both kidneys are mildly echogenic. The right kidney measures 9.4 x 5.0 x 4.7 cm. No hydronephrosis, focal mass or perinephric fluid. The left kidney measures 9.7 x 5.1 x 3.8 cm. No hydronephrosis, focal mass or perinephric fluid. The urinary bladder is incompletely distended without gross abnormality seen. IMPRESSION: Mildly echogenic kidneys bilaterally compatible with medical renal disease. Medical problem list Dizziness/ataxia secondary to vaccine adverse reaction versus TIA Atrial fibrillation S/P Watchman procedure Acute kidney injury superimposed on CKD 3 Chronic diastolic congestive heart failure History of CVA CAD s/p CABG and previous stenting Hypertension, secondary hypothyroidism, GERD, Gout Brief History of Present Illness: 65-year-old male with history of atrial fibrillation status post Watchman procedure, CAD status post CABG, CVA, CKD, pacemaker/defibrillator presents emergency department for dizziness/ataxia. Patient reports that today around 02/2015 he received the 1st dose of the Pfizer vaccine and around 3-4 p.m. began experiencing dizziness, gait instability, generalized weakness. Patient presented to the emergency department for evaluation, symptoms have improved significantly but still having some gait ataxia. Evaluation in the emergency department significant for creatinine 2.34 GFR 28 baseline GFR appears to be around 35-40 BNP 354 chest x-ray demonstrates mild CHF head CT no acute findings, high-density opacification in the left frontal ethmoid sinuses noted which may represent allergic fungal sinusitis. Old lacunar are infarcts noted bilaterally. ED provider wishes to admit patient under observation for further evaluation and management Hospital Course: Patient was admitted overnight for observation, symptoms dramatically improved, patient now baseline and ambulate without difficulty. Ultrasound carotids shows mild to moderate plaque without significant flow abnormalities, renal ultrasound demonstrates medical chronic kidney disease. Patient noted to have sinusitis on the CT scan complaining of some frontal sinus pain. Patient seen by nephrology and has appointment as outpatient for further evaluation. Recommendation for follow up with neurology and primary care doctor within 1-2 weeks to follow up this hospitalization. Add aspirin 81 mg p.o. daily and folic acid 1 mg p.o. daily to medical regimen. Follow up with Cardiology on an outpatient basis as well as scheduled. Patient doing well this time no neurological deficits noted, no complaints. Will prescribe patient Augmentin 500 mg p.o. b.i.d. for 7 days for sinusitis as his usual GFR was less than 30 although did increase. In patient stable for discharge at this time. Vital Signs/Physical Exam: Temp Pulse Resp BP Pulse Ox 97.6 F 85 18 183/86 H 91 06/05/20 16:00 06/05/20 18:41 06/05/20 16:00 06/05/20 18:41 06/05/20 16:00 General: Alert, In no apparent distress HEENT: Atraumatic, PERRLA, EOMI Neck: Supple, JVD not distended Respiratory: Clear to auscultation bilaterally, Normal air movement Cardiovascular: Regular rate/rhythm, Normal S1 S2 Gastrointestinal: Normal bowel sounds, No tenderness Musculoskeletal: No tenderness Integumentary: No rashes Neurological: Normal speech, Normal tone, Normal affect Laboratory Data at Discharge: WBC 5.30 K/uL (4.3-10.9) 06/05/20 02:45 Hgb 11.3 g/dL (13.6-17.9) L 06/05/20 02:45 Hct 35.8 % (39.6-49.0) L 06/05/20 02:45 Plt Count 198 K/uL (152-406) 06/05/20 02:45 PT 13.1 SECONDS (9.5-12.5) H 06/04/20 19:31 INR 1.14 06/04/20 19:31 Sodium 141 mmol/L (136-145) 06/05/20 02:45 Potassium 4.3 mmol/L (3.5-5.1) 06/05/20 02:45 BUN 26 mg/dL (7-18) H 06/05/20 02:45 Creatinine 1.87 mg/dL (0.55-1.3) H 06/05/20 02:45 Glucose 85 mg/dL (74-106) 06/05/20 02:45 Uric Acid 4.1 mg/dL (3.5-7.2) 06/04/20 19:31 Magnesium 2.3 mg/dL (1.8-2.4) 06/05/20 02:45 Total Bilirubin 0.3 mg/dL (0.2-1.0) 06/05/20 02:45 AST 12 U/L (15-37) L 06/05/20 02:45 ALT 16 U/L (12-78) 06/05/20 02:45 Alkaline Phosphatase 70 U/L (45-117) 06/05/20 02:45 Triglycerides 122 mg/dL (<150) 06/05/20 02:45 Cholesterol 132 mg/dL (<200) 06/05/20 02:45 HDL Cholesterol 30 mg/dL (40-60) L 06/05/20 02:45 Cholesterol/HDL Ratio 4.40 06/05/20 02:45 Home Medications: Amoxicillin/Potassium Clav [Augmentin 500-125 Tablet] 1 tab PO DAILY 7 Days #14 tablet 06/05/20 Famotidine [Pepcid] 10 mg PO PCB 06/05/20 Meclizine HCl 12.5 mg PO DAILY MDD 25 06/05/20 Naproxen [Naprosyn*] 220 mg PO PRN 06/05/20 Ramipril [Altace] 10 mg PO DAILY 06/05/20 SUMAtriptan [Sumatriptan] 50 mg PO PRN 06/05/20 New Medications: Amoxicillin/Potassium Clav [Augmentin 500-125 Tablet] 1 tab PO DAILY 7 Days #14 tablet Physician Discharge Instructions: Please follow up with the primary care doctor and neurology in 1-2 weeks. Please add daily 81 mg aspirin and folic acid 1 mg daily to medications. Please also follow up with her pediatric pathologist as scheduled. Please return to the emergency department for any new or worsening symptoms. Diet: AHA Activity: Ad lennie Followup: Viktor Hanna MD [ASSOCIATE-ACTIVE - CAN ADMIT] - 1-2 Weeks Jose Aguilar MD [Primary Care Provider] - Time spent managing pt's care (in minutes): 55
[2020-06-05 20:55] VITALS: BP 167/82; TEMP 98.2
[2020-06-05] MEDS ORDERED: GABAPENTIN 100 MG CAP PO SCH (21:00)
[2020-06-05] MEDS ORDERED: TAMSULOSIN 0.4 MG SR CAP PO SCH (21:00)
[2020-06-05 22:28] VITALS: O2SAT 98
== END 2020-06-05 20:44 | disposition home or self-care (01) ==
LOC: ER 16:49 → ERHOLD 23:10 → 2ND 06-05 01:27
PROVIDERS: ADMIT Hospitalist; ATTEND Hospitalist
DX: R42 Dizziness and giddiness (principal); I13.0 Hypertensive heart and chronic kidney disease with heart failure and stage 1 through stage 4 chronic kidney disease, or unspecified chronic kidney disease; N17.9 Acute kidney failure, unspecified; N18.30 Chronic kidney disease, stage 3 unspecified; I50.32 Chronic diastolic (congestive) heart failure; Z20.822 Contact with and (suspected) exposure to COVID-19; Z86.73 Personal history of transient ischemic attack (TIA), and cerebral infarction without residual deficits; I25.10 Atherosclerotic heart disease of native coronary artery without angina pectoris; Z95.1 Presence of aortocoronary bypass graft; Z95.810 Presence of automatic (implantable) cardiac defibrillator; Z85.850 Personal history of malignant neoplasm of thyroid; I25.2 Old myocardial infarction; N40.0 Benign prostatic hyperplasia without lower urinary tract symptoms; M10.9 Gout, unspecified; K21.9 Gastro-esophageal reflux disease without esophagitis; I48.91 Unspecified atrial fibrillation; E03.8 Other specified hypothyroidism; R94.31 Abnormal electrocardiogram [ECG] [EKG]
CPT/HCPCS: 96365; 93005; 85025 ×2; 80048; 36415 ×2; 83735 ×2; 82550; 85610; 80061; 80076; 84550; 84443; 81003; 84484; 84439; 80053; 83880; 70450; 71045; 93880; 76770; 97116; 97161; 99285; U0003; J0360; J1644 ×2; J0696; G0378 ×2

== ENCOUNTER 2021-06-10 08:43 | Day surgery (SDC) | payer OTHER ==
--- NOTE | 2021-06-07 08:46 | EKG ---
Test Date: 2021-06-06 Test Time: 11:33:06 Kettle Firer: MARLIN MEASUREMENT RESULTS: Intervals: Rate: 72 IA: 304 QRSD: 96 QT: 444 QTc: 486 [place]: P: 91 IA: 304 QRS: -26 T: 149 INTERPRETIVE STATEMENTS: Electronic atrial pacemaker Septal infarct, age undetermined ST & T wave abnormality, consider lateral ischemia Abnormal ECG Compared to ECG 06/04/2020 19:48:30 Ventricular-paced complex(es) or rhythm no longer present Myocardial infarct finding still present ST (T wave) deviation still present Possible ischemia still present Electronically Signed On 06-07-21 08:42:30 CDT by Aakash Rosenbaum
[2021-06-10] MEDS ORDERED: Ringers Lactate 1,000 ML IV ONE (08:52)
[2021-06-10] MEDS: OXYMETAZOLINE HCL 0.05% 15ML NAS ONE ×3 (09:14→09:24)
[2021-06-10] MEDS ORDERED: propofoL 200 MG/20 ML VIAL IV ONE (10:01)
[2021-06-10] MEDS ORDERED: LIDOCAINE 2% MPF 5 ML VIAL ONE (10:02)
[2021-06-10] MEDS ORDERED: KETOROLAC 30 MG/ML INJ ONE (10:02)
[2021-06-10] MEDS ORDERED: dexAMETHasone 10 MG/ML VIAL ONE (10:02)
[2021-06-10] MEDS ORDERED: MIDAZOLAM HCL 2 MG/2 ML INJ ONE (10:03)
[2021-06-10] MEDS ORDERED: FENTANYL CITR 250 MCG/5 ML ONE (10:03)
[2021-06-10] MEDS ORDERED: ONDANSETRON 4 MG/2 ML VIAL ONE (10:03)
[2021-06-10] MEDS ORDERED: ROCURONIUM 50 MG/5 ML VIAL IV ONE (10:15)
[2021-06-10] MEDS ORDERED: SUCCINYLCHOLINE 20 MG/ML (10 ML) IV ONE (10:15)
[2021-06-10] MEDS ORDERED: NA CHLORIDE 0.9% 500 ML ONE (10:38)
[2021-06-10] MEDS ORDERED: LIDOCAINE 1% W/EPI 1:100,000 10 ML VIAL ONE (10:38)
[2021-06-10] MEDS ORDERED: OXYMETAZOLINE HCL 0.05% 15ML NAS ONE ×2 (10:38→13:14)
[2021-06-10] MEDS ORDERED: NS 0.9% VIAL 10 ML ONE (11:56)
[2021-06-10] MEDS ORDERED: Phenylephrine HCl 10 MG/ML 1 ML VIAL ONE (11:56)
[2021-06-10] MEDS ORDERED: NEOSTIGMINE 1 MG/ML -5 ML ONE (13:51)
[2021-06-10] MEDS ORDERED: GLYCOPYRROLATE 0.2 MG/ML SYR ONE (13:51)
--- NOTE | 2021-06-10 14:14 | P.BOP ---
Preoperative diagnosis: CRS Postoperative diagnosis: same Primary procedure: NE with R max, ant eth and L total ethmoid&frontal Secondary procedure: sphenoid irrigation Seismic Prospecting Supervisor: NONE,NONE Estimated blood loss: 100ml Specimen: culture, sinus trimmings Findings: thick yellow secretions in L frontal, R max and ethmoid Anesthesia: General Complications: None Implants: Propel contour (L frontal, R max) and Propel (L ethmoid), B Posisep Fluids & blood products: 850ml crystalloid Transferred to: Recovery Room Condition: Good
[2021-06-10 15:26] VITALS: BP 159/83; O2SAT 96
[2021-06-10 16:13] VITALS: TEMP 97
--- NOTE | 2021-06-15 07:37 | P.OP ---
Date of Service: 06/10/21 Preoperative Diagnosis: 0 degree endoscope was used to perform a nasal endoscopy and the scar band was injected with 1% lidocaine with epinephrine, chronic ethmoid sinusitis, chronic frontal sinusitis, chronic sphenoid sinusitis, nasal obstruction Postoperative diagnosis: Same Procedure: Nasal endoscopy with right maxillary antrostomy and anterior/limited ethmoidectomy, left total ethmoidectomy with frontal sinusotomy, left sphenoid irrigation, use of intraoperative CT navigation/extradural Surgeon: Chel Schulz Experimental Preflight Mechanic: None Indication for procedure: The patient presented with a history of prior left maxillary antrostomy and symptoms of chronic sinusitis. He underwent maximal medical therapy with posttreatment CT scan demonstrating persistent pansinusitis. The patient initially deferred surgery in order to have the battery of his pacemaker replaced. The risks, benefits, and alternatives to surgical procedure were discussed with the patient and/or family and they agreed to proceed. Surgical findings: Thick scar band between the left septum and lateral nasal wall. Left maxillary sinus with no significant infection or inflammation with patent prior maxillary antrostomy. Very thick yellow debris within the right maxillary and right anterior ethmoid and left frontal sinus. IV Fluids: Crystalloid, 850ml Implants/Packing: Propel contour steroid eluding stent to the right maxillary and left frontal. Propel steroid eluding stent to the left ethmoid. Bilateral Posisep dissolvable nasal packing to the bilateral ethmoid Estimated Blood Loss: 100ml Complications: None Description of procedure in detail: The patient was brought to the operating room. They were placed under general anesthesia via oral endotracheal tube. The head of bed was turned 90 degrees. The nasal hairs were trimmed. The nasal cavity was examined with the nasal speculum and headlight with the following findings: During anterior endoscopy, there was no evidence of visible polyps. There is no active drainage within the nasal cavity. There was a prominent scar band in the left nasal cavity, likely from prior surgery. The nasal cavity was packed with Afrin-soaked pledgets in preparation for the procedure. The patient was draped in a standard fashion for nasal surgery. Based on the surgical plan and preoperative findings, intraoperative CT navigation was required. The preoperative CT scan was loaded into the Vedicis device. The registration dongle was applied with adhesive to the patient's forehead. The electromagnetic device was secured to the operating room bed and evaluation to limit interference was confirmed. The registration handpiece was used to perform patient registration in accordance with railroad surveyor's instructions including tracing over the course of the external nose and bilateral forehead and cheeks. Accuracy of the registration was confirmed with [id number] matching at the base of the columella, the radix, and the bilateral medial and lateral canthi. Accuracy was felt to be very good. A 0 degree endoscope was then used to perform a nasal endoscopy with notable f indings of the left scar band was noted, when passing the scope over the scar band, the middle meatus appeared open with no active drainage within the middle meatus. The right middle meatus was mildly inflamed but there was no active drainage. Photo documentation was obtained. The left nasal cavity scar band was injected with 1% lidocaine with epinephrine. A 45 degree through-cutting Blakesley was used to divide and remove the tissue. Afrin-soaked pledget was applied to aid in hemostasis and attention was turned to the right side. The uncinate process and middle turbinate were injected with 1% lidocaine with epinephrine. The middle meatus was packed with an Afrin-soaked pledget. The 0 and 30 and 70 degree endoscope were used to visualize the middle meatus and the left maxillary sinus. The left maxillary sinus did not appear to be inflamed. There was no pus or other secretions noted within the sinus there was no obvious evidence of mucus recirculation or accessory maxillary ostium and no maxillary antrostomy was performed on the side. The right uncinate process was removed using a backbiter and 90 degree Blakesley. The maxillary antrostomy was created and enlarged the tissue removal with the 90 degree Blakesley. The mucosa was significantly inflamed and the maxillary sinus was filled with thick yellow debris. The sinus was forcefully irrigated using the cyclone irrigation system. Multiple aliquots of saline were used until the sinus cavity appeared clear. The anterior ethmoid was gently dissected using a straight curette. Similar thick yellow debris was noted and removed after collection of a culture from this area. Using the precision pointer of the navigation system, I was able to confirm that the dissected ethmoid cell was consistent and coincided with the isolated opacified ethmoid cell noted on the pretreatment CT scan. Based on the otherwise normal appearance on the CT, a full ethmoidectomy was not performed. Afrin-soaked pledgets were applied to the middle meatus and the anterior ethmoid cavity and attention was returned to the left side. The precision pointer was used during dissection of the left ethmoid cavity to aid and direct the extent of dissection. Ethmoid partitions were removed using straight, 45, and 90 degree Blakesley's along with the surrounding inflamed mucosa. The 0, 30, and 70 degree endoscopes were used for optimal visualization during this portion of the procedure. Dissection was carried out through the anterior and posterior ethmoid. Residual portions of the left uncinate process were removed as part of the dissection towards the superior anterior ethmoids, working towards the frontal recess. The frontal recess was carefully dissected and noted to be significantly inflamed. After cannulation with the cyclone, the frontal sinus was forcefully irrigated with several aliquots of sterile saline with evidence of thick yellow debris noted from the sinus. After adequate dissection, the area was packed with Afrin-soaked pledgets for several minutes to aid in hemostasis. The cyclone was then used to cannulate the left sphenoid ostium without significant difficulty. Forceful irrigation using several aliquots of sterile saline was performed. The opening of the sphenoid was felt to be sufficient to allow adequate drainage and no formal sphenoidotomy was performed. The pledgets were removed and counts were confirmed correct. A propel contour steroid eluding stent was placed under endoscopic guidance to the right maxillary and left frontal sinus openings. A propel steroid eluding stent was then positioned within the left ethmoid sinus with a somewhat anterior position to include the stent over the area of previous scar band within the left nasal cavity. A Posisep dissolvable sinus dressing was then cut to size and placed under endoscopic guidance within the right and left sinus cavities. The packing was thoroughly irrigated with sterile saline to allow for expansion. The nasopharynx was carefully examined and there was no evidence of additional oozing noted. At the conclusion of the procedure, all pledget counts were confirmed correct. The patient was returned to care of anesthesia for awakening extubation in the operating room which proceeded without difficulty. The patient was transported to the recovery room and will be discharged home later today in the care of their family. The patient is given written and verbal instructions regarding the importance of saline irrigations and nasal precautions.
== END 2021-06-10 16:00 | disposition home or self-care (01) ==
LOC: OR 08:43
PROVIDERS: ATTEND Otolaryngology
PROC: 09TU8ZZ Resection of Right Ethmoid Sinus, Via Natural or Artificial Opening Endoscopic (ICD-10-PCS; 2021-06-10)
PROC: 09TV8ZZ Resection of Left Ethmoid Sinus, Via Natural or Artificial Opening Endoscopic (ICD-10-PCS; 2021-06-10)
PROC: 3E1 Administration, Physiological Systems and Anatomical Regions, Irrigation (ICD-10-PCS; 2021-06-10)
PROC: 099Q8ZZ Drainage of Right Maxillary Sinus, Via Natural or Artificial Opening Endoscopic (ICD-10-PCS; principal; 2021-06-10 10:15)
DX: J32.0 Chronic maxillary sinusitis (principal); J32.4 Chronic pansinusitis; E66.3 Overweight; J32.1 Chronic frontal sinusitis; J32.2 Chronic ethmoidal sinusitis; J34.89 Other specified disorders of nose and nasal sinuses; Z20.822 Contact with and (suspected) exposure to COVID-19
CPT/HCPCS: 93005; 87070; 87205; 88305; 88311; 87077; 87186; 31254; 31256; 31276; 31255; 31002; U0002; J2704; J0330; J2370; J2250; J3010; J2710; J7120; J7040; J2405; J1100

== ENCOUNTER 2022-01-13 15:39 | Emergency (ER) | payer OTHER ==
--- OUTSIDE RECORDS SUMMARY | 2022-01-13 15:44 | XMS REPORT | Continuity of Care Document ---
:1955 Author Organization [facility] t Address [address] [place] [address] Dr. [address] [place] [address] Care Team Providers Name Role Phone VIDA AZAR I. Primary Care Physician Unavailable MAGDALENE FORTE Attending Clinician Unavailable ZAK TESFAYE Attending Clinician Unavailable DAVID GRANADO Attending Clinician Unavailable Only, Ang Db Test Attending Clinician Unavailable Alfonzo Barillas Attending Clinician ALFONZO HERMOSILLO Attending Clinician Unavailable MAGDALENE FORTE Attending Clinician Unavailable Sheila Key RN Attending Clinician Unavailable Doctor Unassigned, [place] Attending Clinician Unavailable DAVID ANDREWS Attending Clinician Unavailable VIDA AZAR I. Attending Clinician Unavailable David Granado MD Attending Clinician Darius Mcdowell CRNA Attending Clinician Jim Thakur MD Attending Clinician Only, Adc Test Attending Clinician Unavailable Nurse, Adc General Surgery Attending Clinician Unavailable DAVID GRANADO Admitting Clinician Unavailable CARLOS HUTCHINSON Admitting Clinician Unavailable David Granado MD Admitting Clinician Payers Payer Name Policy Type Policy Number Effective Date Expiration Date S lino [facility] WELLMED [id number] 2020 00:00:00 WELL[employer] [id number] 2019 MEDICARE ADVANTAGE 00:00:00 [facility] [id number] 2019 MEDICARE SUPPLEMENT 00:00:00 [facility] MEDICARE [id number] 2016 ADVANTAGE 00:00:00 Problems Condition Condition Condition Status Onset Resolution Last Treating Co mments Source Name Details Category Date Date Treatment Clinician Date Other Other Problem Active 2018-01-10 Memor ia generalize generalize 02:57:21 l d ischemic 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 Active Problem 01/10/2018 Andreas Lott 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 02:57:21 l mellitus mellitus Raúl n with with hyperglyce hyperglyce prabhu prabhu Active Diagnosis 01/10/2018 Andreas Lott Gouty Gouty Problem Active 2018-01-10 Memor ia arthropath arthropath 02:57:21 l y, y, [place] unspecifie unspecifie d d Active Problem 01/10/2018 Andreas Lott Unspecifie Unspecifi Problem Active 2018-01-10 Memoria d ed 02:57:21 l essential essential Herm angie hypertensi hypertensi on on Active Problem 01/10/2018 Andreas Lott Unspecifie Unspecifi Problem Active 2018-01-10 Memoria d ed 02:57:21 l hypothyroi hypothyroi He rmann dism dism Active Problem 01/10/2018 Andreas Lott Diabetes Diabetes Problem Active 2018-01-10 Memoria mellitus mellitus 02:57:21 l without without [place] mention of mention of complicati complicati on, type on, type II or II or unspecifie unspecifie d type, d type, not stated not stated as as uncontroll uncontroll ed ed Active Problem 01/10/2018 Andreas Lott Hemorrhage Hemorrhag Problem Active 2018-01-10 Memoria of e of 02:57:21 l gastrointe gastrointe He rmann stinal stinal tract, tract, unspecifie unspecifie d d Active Problem 01/10/2018 Andreas Lott Low back Low back Problem Active 2018-01-10 Memoria pain pain 02:57:21 l Active [place] Problem 01/10/2018 Andreas Lott Diabetes Diabetes Problem Active 2018-01-10 Memoria mellitus mellitus 02:57:21 l without without Shahid mention of mention of complicati complicati on, type on, type II or II or unspecifie unspecifie d type, d type, uncontroll uncontroll ed ed Active Problem 01/10/2018 Andreas Lott Gastro-eso Problem Active 2018-01-10 M emoria phageal Gastro-eso 02:57:21 l reflux phageal [place] disease reflux with disease esophagiti with s esophagiti s Active Problem 01/10/2018 Andreas Lott Malignant Malignant Problem Active 2018-01-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:57: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 Active Problem 01/10/2018 Andreas Abarca Lott Hyperlipid Hyperlipi Problem Active 2018-01-10 Memoria emnohemi demia, 02:57:21 l unspecifie unspecifie He rmann d d Active Problem 01/10/2018 Andreas Lott Chronic Chronic Problem Active 2018-01-10 Me moria kidney kidney 02:57:21 l disease, disease, Raúl miramontes unspecifie unspecifie d d Active Problem 01/10/2018 Andreas Lott Unspecifie Unspecifi Problem Active 2018-01-10 Memoria d ed 02:57:21 l superficia superficia He rmann l injury l injury of right of right foot, foot, initial initial encounter encounter Active Problem 01/10/2018 Andreas Lott Other Other Problem Active 2018-01-10 Memor ia 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:57:21 l cular cular [place] disease disease Active Problem 01/10/2018 Andreas Lott Anxiety Anxiety Problem Active 2018-01-10 M emoria disorder, disorder, 02:57:21 l unspecifie unspecifie He rmann d d Active Problem 01/10/2018 Andreas Abarca Lott Atrial Atrial Problem Active 2018-01-10 Beka yelitza fibrillati fibrillati 02:57:21 l on on Active Shahid Problem 01/10/2018 Andreas Abarca Lott 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 02:57:21 l rosis of rosis of [place] coronary coronary artery artery Active Problem 01/10/2018 Andreas Abarca Lott Hyperlipid Hyperlipi Problem Active 2018-01-10 Memoria emia demia 02:57:21 l Active [place] Problem 01/10/2018 Andreas Lott Persistent Persisten Problem Active 2018-01-10 Memoria atrial t atrial 02:57:21 l fibrillati fibrillati He rmann on on Active Problem 01/10/2018 Andreas Abarca Oren Left Left Problem Active 2018-01-10 Memor ia ventricula ventricula 02:57:21 l r failure r failure Herm angie Active Problem 01/10/2018 Andreas Abarca Oren Sleep Sleep Problem Active 2018-01-10 Memor ia apnea, apnea, 02:57:21 l unspecifie unspecifie He rmann d d Active Problem 01/10/2018 Andreas Lott Obstructiv Obstructi Problem Active 2018-01-10 Memoria e sleep ve sleep 02:57:21 l apnea apnea Shahid (adult) (adult) (pediatric (pediatric ) ) Active Problem 01/10/2018 Andreas Abarca Oren Hypertroph Hypertrop Problem Active 2018-01-10 Memoria y (benign) hy 02:57:21 l of (benign) [place] prostate of without prostate urinary without obstructio urinary n and obstructio other n and lower other urinary lower tract urinary symptoms tract [LUTS] symptoms [LUTS] Active Problem 01/10/2018 Andreas Abarca Oren Chronic Chronic Problem Active 2018-01-10 Me moria kidney kidney 02:57:21 l disease, disease, Raúl n Stage III Stage III (moderate) (moderate) Active Problem 01/10/2018 Andreas Lott GERD GERD Problem Active 2018-01-10 Memor ia Active 02:57:21 l Problem Shahid 01/10/2018 Andreas Abarca Oren Unspecifie Unspecifi Problem Active 2018-01-10 Memoria d sleep ed sleep 02:57:21 l apnea apnea Shahid Active Problem 01/10/2018 Andreas Lott Hypothyroi Hypothyro Problem Active 2018-01-10 Memoria dism, idism, 02:57:21 l unspecifie unspecifie He rmann d d Active Problem 01/10/2018 Andreas Rima Lott Idiopathic Idiopathi Diagnosis Active 2018-01-10 Memoria gout, c gout, 02:57:21 l unspecifie unspecifie He rmann d site d site Active Diagnosis 01/10/2018 Andreas Abarca Oren Chronic Chronic Diagnosis Active 2018-01-10 Pranayoria kidney kidney 02:57:21 l disease, disease, Raúl n stage 3 stage 3 (moderate) (moderate) Active Diagnosis 01/10/2018 Andreas Lott Allergies, Adverse Reactions, Alerts Allergy Allergy Status Severity Reaction(s) Onset Inactive Treating Comm ents Source Name Type Date Date Clinician ADHESIVE DRUG Active Other-Cmnt 2020-0 Univ ers TAPE-CLIVE 4-27 ity of ICONES 00:00: [place] 00 [facility] APIXABAN DRUG Active Rash 2020-0 Univers INGREDI 27 ity of 00:00: [place] 00 [facility] CLOPIDOG DRUG Active Other-Cmnt 2020-0 Univ ers REL INGREDI 07-13 ity of 00:00: [place] 00 [facility] DABIGATR DRUG Active Rash 2020-0 Univers AN INGREDI 07-13 ity of ETEXILAT 00:00: [place] E 00 Medical Branch Adhesive Propensi Active Other - See 2020-0 blisters Univers Tape-Clive ty to comments 07-13 ity of icones adverse 00:00: [place] reaction 00 Medical s Branch Apixaban Propensi Active Rash 2020-0 Univer s ty to 07-13 ity of adverse 00:00: [place] reaction 00 Medical s Branch Clopidog Propensi Active Other - See 2020-0 rash U nivers rel ty to comments 07-13 ity of adverse 00:00: [place] reaction 00 Medical s Branch Dabigatr Propensi Active Rash 2020-0 Univer s an ty to 07-13 ity of Etexilat adverse 00:00: [place] e reaction 00 Medical s Branch Tramadol Drug Active Other - See 2020-0 vomit Uni vers Intolera comments 07-13 ity of nce 00:00: [place] 00 [facility] Rivaroxa Propensi Active Rash 2020-0 Univer s ban ty to 27 ity of adverse 00:00: [place] reaction 00 Medical s Branch TRAMADOL DRUG Active Other-Cmnt 2020-0 Univ ers INGREDI 07-13 ity of 00:00: [place] 00 [facility] RIVAROXA DRUG Active Rash 2020-0 Univers BAN INGREDI 07-13 ity of 00:00: [place] 00 [facility] plavix plavix Active Info Not 2017- Memoria Available 2-22 l 00:00: Social History Social Habit Start Date Stop Date Quantity Comments Source Exposure to 2021-09-20 2021-09-30 Yes [place] of SARS-CoV-2 00:00:00 18:39:00 [facility] (event) Nathalie Tobacco use and 2019-07-14 2019-07-14 Smokeless tobacco Un iversity of exposure 00:00:00 00:00:00 non-user [facility] Sex Assigned At [birth year] Universit y of 00:00:00 00:00:00 [facility] Smoking Status Start Date Stop Date Source Never smoked tobacco [facility] Medications Ordered Filled Start Stop Current Ordering Indication Dosage Frequency Signature Comments Components Source Medication Medication Date Date Medication? Clinician (SIG) Name Name diphenhydrA 2020-0 Yes 50mg Take 50 mg Univers MINE 5-20 by mouth ity of (BENADRYL) 14:15: daily. [place] 25 mg 57 Medical capsule Branch naproxen 2019-0 Yes 220{cap Take 220 Un thong (NAPROSYN 5-20 nevaeh} capsules ity o f ORAL) 14:15: by mouth [place] 57 daily. Medical Branch PROBENECID- 0 Yes 500{cap Take 500 Univers COLCHICINE 5-20 nevaeh} capsules ity of ORAL 14:15: by mouth [place] 57 daily. Medical Branch BACLOFEN 0 Yes 200{cap Take 200 Un thong ORAL 5-20 nevaeh} capsules ity of 14:15: by mouth [place] 57 daily. Medical Branch allopurinoL 2019-0 Yes 100mg Take 100 U nivers 100 mg 5-20 mg by ity of tablet 14:15: mouth [place] 57 daily. Medical Branch escitalopra 0 Yes 20mg Take 20 mg Univers m oxalate 5-20 by mouth ity of (LEXAPRO) 14:15: daily. [place] 20 mg 57 Medical tablet Branch pantoprazol 0 Yes 20mg Take 20 mg Univers e 20 mg EC 5-20 by mouth ity o f tablet 14:15: daily. [place] [address] Medical Branch ramipril 5 0 Yes 5mg Take 5 mg Un thong mg capsule 5-20 by mouth ity o f 14:15: daily. [place] [address] Medical Branch sotalol 0 Yes 120mg Take 120 Unive rs (SOTALOL 5-20 mg by ity of AF) 120 mg 14:15: mouth [place] tablet 57 daily. Medical Branch Levothyroxi 2019-0 Yes 137{cap Take 137 Univers ne 137 mcg 5-20 nevaeh} capsules ity of Cap 14:15: by mouth [place] 57 daily. Medical Branch tamsulosin 2019-0 Yes .4mg Take 0.4 Uni vers 0.4 mg 24 5-20 mg by ity of hr capsule 14:15: mouth [place] 57 daily. Medical Branch diphenhydrA 2020-0 Yes 50mg Take 50 mg Univers MINE 5-20 by mouth ity of (BENADRYL) 14:15: daily. [place] 25 mg 57 Medical capsule Branch naproxen 2020-0 Yes 220{cap Take 220 Un thong (NAPROSYN 5-20 nevaeh} capsules ity o f ORAL) 14:15: by mouth [place] 57 daily. Medical Branch PROBENECID- 2020-0 Yes 500{cap Take 500 Univers COLCHICINE 5-20 nevaeh} capsules ity of ORAL 14:15: by mouth [place] 57 daily. Medical Branch BACLOFEN 2020-0 Yes 200{cap Take 200 Un thong ORAL 5-20 nevaeh} capsules ity of 14:15: by mouth [place] 57 daily. Medical Branch allopurinoL 2019-0 Yes 100mg Take 100 U nivers 100 mg 5-20 mg by ity of tablet 14:15: mouth [place] 57 daily. Medical Branch escitalopra 2019-0 Yes 20mg Take 20 mg Univers m oxalate 5-20 by mouth ity of (LEXAPRO) 14:15: daily. 20 mg 57 Medical tablet Branch pantoprazol 2019-0 Yes 20mg Take 20 mg Univers e 20 mg EC 5-20 by mouth ity o f tablet 14:15: daily. Medical Branch ramipril 5 2020-0 Yes 5mg Take 5 mg Un thong mg capsule 5-20 by mouth ity o f 14:15: daily. Medical Branch sotalol 2019-0 Yes 120mg Take 120 Unive rs (SOTALOL 5-20 mg by ity of AF) 120 mg 14:15: mouth [place] tablet 57 daily. Medical Branch Levothyroxi 2019-0 Yes 137{cap Take 137 Univers ne 137 mcg 5-20 nevaeh} capsules ity of Cap 14:15: by mouth [place] 57 daily. Medical Branch tamsulosin 2020-0 Yes .4mg Take 0.4 Uni vers 0.4 mg 24 5-20 mg by ity of hr capsule 14:15: mouth [place] 57 daily. Medical Branch diphenhydrA 2019-0 Yes 50mg Take 50 mg Univers MINE 5-20 by mouth ity of (BENADRYL) 14:15: daily. [place] 25 mg 57 Medical capsule Branch naproxen 2020-0 Yes 220{cap Take 220 Un thong (NAPROSYN 5-20 nevaeh} capsules ity o f ORAL) 14:15: by mouth [place] 57 daily. Medical Branch PROBENECID- 2020-0 Yes 500{cap Take 500 Univers COLCHICINE 5-20 nevaeh} capsules ity of ORAL 14:15: by mouth [place] 57 daily. Medical Branch BACLOFEN 2020-0 Yes 200{cap Take 200 Un thong ORAL 5-20 nevaeh} capsules ity of 14:15: by mouth [place] 57 daily. Medical Branch allopurinoL 2020-0 Yes 100mg Take 100 U nivers 100 mg 5-20 mg by ity of tablet 14:15: mouth [place] 57 daily. Medical Branch escitalopra 2020-0 Yes 20mg Take 20 mg Univers m oxalate 5-20 by mouth ity of (LEXAPRO) 14:15: daily. [place] 20 mg 57 Medical tablet Branch pantoprazol 2019-0 Yes 20mg Take 20 mg Univers e 20 mg EC 5-20 by mouth ity o f tablet 14:15: daily. Medical Branch ramipril 5 2019-0 Yes 5mg Take 5 mg Un thong mg capsule 5-20 by mouth ity o f 14:15: daily. Medical Branch sotalol 2020-0 Yes 120mg Take 120 Unive rs (SOTALOL 5-20 mg by ity of AF) 120 mg 14:15: mouth [place] tablet 57 daily. Medical Branch Levothyroxi 2019-0 Yes 137{cap Take 137 Univers ne 137 mcg 5-20 nevaeh} capsules ity of Cap 14:15: by mouth [place] 57 daily. Medical Branch tamsulosin 2020-0 Yes .4mg Take 0.4 Uni vers 0.4 mg 24 5-20 mg by ity of hr capsule 14:15: mouth [place] 57 daily. Medical Branch diphenhydrA 2020-0 Yes 50mg Take 50 mg Univers MINE 5-20 by mouth ity of (BENADRYL) 14:15: daily. [place] 25 mg 57 Medical capsule Branch naproxen 2020-0 Yes 220{cap Take 220 Un thong (NAPROSYN 5-20 nevaeh} capsules ity o f ORAL) 14:15: by mouth [place] 57 daily. Medical Branch PROBENECID- 2020-0 Yes 500{cap Take 500 Univers COLCHICINE 5-20 nevaeh} capsules ity of ORAL 14:15: by mouth [place] 57 daily. Medical Branch BACLOFEN 2020-0 Yes 200{cap Take 200 Un thong ORAL 5-20 nevaeh} capsules ity of 14:15: by mouth [place] 57 daily. Medical Branch allopurinoL 2020-0 Yes 100mg Take 100 U nivers 100 mg 5-20 mg by ity of tablet 14:15: mouth [place] 57 daily. Medical Branch escitalopra 2020-0 Yes 20mg Take 20 mg Univers m oxalate 5-20 by mouth ity of (LEXAPRO) 14:15: daily. [place] 20 mg 57 Medical tablet Branch pantoprazol 2019-0 Yes 20mg Take 20 mg Univers e 20 mg EC 5-20 by mouth ity o f tablet 14:15: daily. Medical Branch ramipril 5 2019-0 Yes 5mg Take 5 mg Un thong mg capsule 5-20 by mouth ity o f 14:15: daily. Medical Branch sotalol 2019-0 Yes 120mg Take 120 Unive rs (SOTALOL 5-20 mg by ity of AF) 120 mg 14:15: mouth [place] tablet 57 daily. Medical Branch Levothyroxi 2019-0 Yes 137{cap Take 137 Univers ne 137 mcg 5-20 nevaeh} capsules ity of Cap 14:15: by mouth [place] 57 daily. Medical Branch tamsulosin 2019-0 Yes .4mg Take 0.4 Uni vers 0.4 mg 24 5-20 mg by ity of hr capsule 14:15: mouth [place] 57 daily. Medical Branch diphenhydrA 2019-0 Yes 50mg Take 50 mg Univers MINE 5-20 by mouth ity of (BENADRYL) 14:15: daily. [place] 25 mg 57 Medical capsule Branch naproxen 2019-0 Yes 220{cap Take 220 Un thong (NAPROSYN 5-20 nevaeh} capsules ity o f ORAL) 14:15: by mouth [place] 57 daily. Medical Branch PROBENECID- 2020-0 Yes 500{cap Take 500 Univers COLCHICINE 5-20 nevaeh} capsules ity of ORAL 14:15: by mouth [place] 57 daily. Medical Branch BACLOFEN 2020-0 Yes 200{cap Take 200 Un thong ORAL 5-20 nevaeh} capsules ity of 14:15: by mouth [place] 57 daily. Medical Branch allopurinoL 2020-0 Yes 100mg Take 100 U nivers 100 mg 5-20 mg by ity of tablet 14:15: mouth [place] 57 daily. Medical Branch escitalopra Yes 20mg Take 20 mg Univers m oxalate 5-20 by mouth ity of (LEXAPRO) 14:15: daily. [place] 20 mg 57 Medical tablet Branch pantoprazol 0 Yes 20mg Take 20 mg Univers e 20 mg EC 5-20 by mouth ity o f tablet 14:15: daily. [place] [address] Medical Branch ramipril 5 Yes 5mg Take 5 mg Un thong mg capsule 5-20 by mouth ity o f 14:15: daily. [place] [address] Medical Branch sotalol Yes 120mg Take 120 Unive rs (SOTALOL 5-20 mg by ity of AF) 120 mg 14:15: mouth [place] tablet 57 daily. Medical Branch Levothyroxi Yes 137{cap Take 137 Univers ne 137 mcg 5-20 nevaeh} capsules ity of Cap 14:15: by mouth [place] 57 daily. Medical Branch tamsulosin Yes .4mg Take 0.4 Uni vers 0.4 mg 24 5-20 mg by ity of hr capsule 14:15: mouth [place] 57 daily. Medical Branch Pantoprazol 2017-03 Yes Karoline Rivera 1 tablet Memoria e Sodium 0-25 l 02:57: Shahid 21 Sotalol HCl 2017-03 Yes Karoline Rivera 1 tablet Memoria 0-25 l 02:57: Shahid 21 Cialis 2017-03 Yes Karoline Rivera 1 tablet Mem oria 0-25 l 02:57: [place] 21 Lexapro 2017-03 Yes Karoline Rivera TAKE ONE Me moria 0-25 TABLET BY l 02:57: MOUTH Shahid 21 DAILY Sotalol HCl 2017-03 Yes Karoline Rivera TAKE two Memoria 0-25 TABLET BY l 02:57: MOUTH [place] 21 TWICE A DAY Norvasc 2017-03 Yes Karoline Rivera TAKE ONE Me moria 0-25 TABLET BY l 02:57: MOUTH Shahid 21 DAILY Allopurinol 2017-03 Yes Karoline Rivrea 1 tablet Memoria 0-25 l 02:57: Shahid 21 Protonix 2017-03 Yes Karoline Rivera TAKE ONE M emoria 0-25 TABLET BY l 02:57: MOUTH ONE Shahid 21 TIME DAILY Ramipril 2017-03 Yes Karoline Rivera TAKE ONE M emoria 0-25 CAPSULE BY l 02:57: MOUTH Shahid 21 DAILY Gabapentin 2017-03 Yes Karoline Rivera 1 capsule Memoria 0-25 l 02:57: Shahid 21 Eliquis 2017-03 Yes Karoline Rivera not Memori a 0-25 defined l 02:57: [place] 21 Synthroid 2017-03 Yes Karoline Rivera 1 tablet Memoria 0-25 l 02:57: Shahid 21 Escitalopra 2017-03 Yes Karoline Rivera TAKE ONE Memoria m Oxalate 0-25 TABLET BY l 02:57: MOUTH Shahid 21 DAILY Nitroglycer 2017-03 Yes Karoline Rivera 1 tablet Memoria in 0-25 under the l 02:57: tongue and [place] 21 allow to dissolve as needed Amlodipine 2017-03 Yes Karoline Rivera 1 tablet Memoria Besylate 0-25 l 02:57: Shahid 21 Baclofen 2017-03 Yes Karoline Rivera TAKE ONE M emoria 0-25 TABLET BY l 02:57: MOUTH Shahid 21 EVERY SIX HOURS NEEDED Levothyroxi 2017-03 Yes Karoline Rivera TAKE ONE Memoria ne Sodium 0-25 TABLET BY l 02:57: MOUTH [place] 21 DAILY ON SUNDAY TO SUNDAY AND SUNDAY AND SUNDAY Ramipril 2017-03 Yes Karoline Rivera TAKE ONE M emoria 0-25 CAPSULE BY l 02:57: MOUTH [place] 21 DAILY Pantoprazol 2017-03 Yes Karoline Rivera 1 tablet Memoria e Sodium 0-25 l 02:57: Shahid 21 Sotalol HCl 2017-03 Yes Karoline Rivera 1 tablet Memoria 0-25 l 02:57: Shahid 21 Cialis 2017-03 Yes Karoline Rivera 1 tablet Mem oria 0-25 l 02:57: Shahid 21 Lexapro 2017-03 Yes Karoline Rivera TAKE ONE Me moria 0-25 TABLET BY l 02:57: MOUTH Shahid 21 DAILY Sotalol HCl 2017-03 Yes Karoline Rivera TAKE two Memoria 0-25 TABLET BY l 02:57: MOUTH [place] 21 TWICE A DAY Norvasc 2017-03 Yes Karoline Rivera TAKE ONE Me moria 0-25 TABLET BY l 02:57: MOUTH Shahid 21 DAILY Allopurinol 2017-03 Yes Karoline Rivera 1 tablet Memoria 0-25 l 02:57: [place] 21 Protonix 2017-03 Yes Karoline Rivera TAKE ONE M emoria 0-25 TABLET BY l 02:57: MOUTH ONE Shahid 21 TIME DAILY Ramipril 2017-03 Yes Karoline Rivera TAKE ONE M emoria 0-25 CAPSULE BY l 02:57: MOUTH Shahid 21 DAILY Gabapentin 2017-03 Yes Karoline Rivera 1 capsule Memoria 0-25 l 02:57: Shahid 21 Eliquis 2017-03 Yes Karoline Rivera not Memori a 0-25 defined l 02:57: Shahid 21 Synthroid 2017-03 Yes Karoline Rivera 1 tablet Memoria 0-25 l 02:57: Shahid 21 Nitroglycer 2017-03 Yes Karoline Rivera 1 tablet Memoria in 0-25 under the l 02:57: tongue and [place] 21 allow to dissolve as needed Tamsulosin 2017-03 Yes Karoline Rivera 1 capsule Memoria HCl 0-25 30 minutes l 02:57: after the [place] 21 same meal each day Baclofen 2017-03 Yes Karoline Rivera TAKE ONE M emoria 0-25 TABLET BY l 02:57: MOUTH [place] 21 EVERY 6 HOURS NEEDED Atorvastati 2017-03 Yes Karoline Rivera TAKE ONE Memoria n Calcium 0-25 TABLET BY l 02:57: MOUTH Shahid 21 DAILY Tamsulosin 2017-03 Yes Karoline Rivera 1 capsule Memoria HCl 0-25 30 minutes l 02:57: after the [place] 21 same meal each day Chlorthalid 2017-03 Yes Karoline Miguel 1/2 tab Memoria one 0-25 l 02:57: [place] 21 Levothyroxi 2017-03 Yes Karoline Rivera 1 tablet Memoria ne Sodium 0-25 l 02:57: Shahid 21 Flomax 2017-03 Yes Karoline Rivera TAKE ONE Mem oria 0-25 CAPSULE BY l 02:57: MOUTH Shahid 21 DAILY 30 MINUTES BEFORE SAME MEAL Baclofen 2017-03 Yes Karoline Rivera TAKE ONE M emoria 0-25 TABLET BY l 02:57: MOUTH Shahid 21 EVERY 6 HOURS NEEDED Atorvastati 2017-03 Yes Karoline Rivera TAKE ONE Memoria n Calcium 0-25 TABLET BY l 02:57: MOUTH [place] 21 DAILY Chlorthalid 2017-03 Yes Karoline Miguel 1/2 tab Memoria one 0-25 l 02:57: [place] 21 Levothyroxi 2017-03 Yes Karoline Rivera 1 tablet Memoria ne Sodium 0-25 l 02:57: [place] 21 Flomax 2017-03 Yes Karoline Rivera TAKE ONE Mem oria 0-25 CAPSULE BY l 02:57: MOUTH Shahid 21 DAILY 30 MINUTES BEFORE SAME MEAL Escitalopra 2017-03 Yes Karoline Rivera TAKE ONE Memoria m Oxalate 0-25 TABLET BY l 02:57: MOUTH Shahid 21 DAILY Amlodipine 2017-03 Yes Karoline Rivera 1 tablet Memoria Besylate 0-25 l 02:57: Shahid 21 Baclofen 2017-03 Yes Karoline Rivera TAKE ONE M emoria 0-25 TABLET BY l 02:57: MOUTH Shahid 21 EVERY SIX HOURS NEEDED Levothyroxi 2017-03 Yes Karoline Rivera TAKE ONE Memoria ne Sodium 0-25 TABLET BY l 02:57: MOUTH [place] 21 DAILY ON SUNDAY TO SUNDAY AND SUNDAY AND SUNDAY Ramipril 2017-03 Yes Karoline Rivera TAKE ONE M emoria 0-25 CAPSULE BY l 02:57: MOUTH [place] 21 DAILY Allopurinol Yes Karoline Rivera TAKE ONE Memoria 6-20 TABLET BY l 00:00: MOUTH Shahid 00 DAILY Allopurinol Yes Karoline Rivera TAKE ONE Memoria 6-20 TABLET BY l 00:00: MOUTH [place] 00 DAILY Synthroid 2015-03 Yes Karoline Rivera 1 tablet Memoria 0-27 l 00:00: Shahid 00 Synthroid 2015-03 Yes Karoline Rivera 1 tablet Memoria 0-27 l 00:00: [place] 0 Yes Karoline Rivera 1 tablet Beka yelitza 8-28 as needed l 00:00: Shahid 00 [place] 0 Yes Karoline Rivera 1 tablet Beka yelitza 8-28 as needed l 00:00: Shahid 00 Cholestyram 2015-0 Yes Karoline Rivera 1 packet Memoria ine 7-22 mixed with l 00:00: water or [place] 00 non-carbon ated drink Cholestyram 0 Yes Karoline Miguel 1 packet Memoria ine 7-22 mixed with l 00:00: water or [place] 00 non-carbon ated drink Clonazepam 0 Yes Karoline Rivera 1 tablet Memoria 6-15 l 00:00: Shahid 00 Clonazepam 2015-0 Yes Karoline Rivera 1 tablet Memoria 6-15 l 00:00: [place] Clonidine 2013-0 Yes Karoline Rivera 1 tablet Memoria HCl 9-08 l 00:00: Shahid Clonidine 2013-0 Yes Karoline Miguel 1 tablet Memoria HCl 9-08 l 00:00: Shahid 00 Vital Signs Vital Name Observation Time Observation Value Comments Source Weight 2017-03-09 18:30:00 [facility] Height 2017-03-09 18:30:00 [facility] [place] Respitory Rate 2017-03-09 18:30:00 Pranaylucio al Shahid Heart Rate 2017-03-09 18:30:00 [facility] [place] Diastolic (mm Hg) 2017-03-09 18:30:00 Pranay valdeskamar Shahid Systolic (mm Hg) 2017-03-09 18:30:00 Beka radha Shahid Temperature Oral (F) 2017-03-09 18:30:00 97.4 F [facility] Procedures Procedure Date / Time Performed Performing Clinician [facility] e NOTICE OF BILLING 2021-04-28 21:54:19 Doctor Unassigned, No [facility] FOR MEDICARE Name Medical [facility] [place] PATIENTS ASSIGNMENT OF BENEFITS 2021-04-28 21:54:02 Doctor Unassigned, No [facility] Name Medical Branch Encounters Start End Encounter Admission Attending Care Care Encounter Source Date/Time Date/Time Type Type Clinicians Facility Department ID 2022-01-13 Outpatient [id number] Memoria 15:43:12 [id number] Shahid [id number] 2021-12-11 Outpatient [facility] [id number] [place] 08:39:01 [id number] [facility] 2021-09-13 Outpatient REANNA [facility] [id number] [place] 13:01:37 MAGDALENE [id number] [facility] 2021-08-23 Outpatient [facility] [id number] [place] 09:19:23 [id number] [facility] 2021-06-14 [facility] [id number] [place] 10:21:53 ZAK [id number] [facility] 2021-06-11 Outpatient [facility] [id number] [place] 10:00:13 [facility] 2021-05-17 [facility] [id number] [place] 14:54:16 [facility] 2021-04-28 [facility] [id number] [place] 16:42:22 [facility] 2021-04-18 Outpatient [id number] Memoria 22:57:46 [id number] [place] [id number] 2021-04-13 [facility] [id number] [place] 11:50:38 [facility] 2021-03-01 Outpatient [facility] [id number] [place] 11:36:41 [facility] 2021-03-01 [facility] [id number] [place] 09:47:40 [facility] 2021-02-25 [facility] [id number] [place] 10:48:59 [facility] 2021-02-18 [facility] [id number] [place] 10:34:54 [facility] 2021-01-13 Outpatient Dima GRANADO [facility] ALEE [id number] Univers 19:20:35 [facility] 2021-01-13 Outpatient Dima GRANADO [facility] [id number] Univers 19:20:35 [facility] 2021-01-12 [facility] [id number] [place] 14:58:16 [facility] 2021-09-30 2021-09-30 Laboratory Only, Ang Db Test [facility] 1.2.8 40.114 [id number] Univers 18:45:00 19:00:00 Only [facility] [id number] [facility] 4.2.7.2.686 Darian as ANDRE?BLEA [id number] [address] MEDICAL OFFICE BUILDING 2021-09-30 2021-09-30 Outpatient Dima HERMOSILLO [facility] [id number] Univers 18:45:00 18:45:00 [facility] 2021-05-02 2021-05-02 Outpatient REANNA [facility] [address] [facility] 08:15:00 15:30:00 [facility] 2021-04-29 2021-04-29 Letter TERENCE Key 1.2.840.114 [id number] Univers 00:00:00 00:00:00 (Out) Sheila KEANE [id number] it y of HOSPITAL 4.2.7.2.686 Darian as [id number] [facility] [address] 2021-04-28 2021-04-28 Laboratory Only, Ang Db Test [facility] 1.2.8 40.114 [id number] Univers 16:00:00 16:15:00 Only [facility] [id number] ity of [place] 4.2.7.2.686 Darian as ANDRE?BLEA [id number] [address] MEDICAL OFFICE BUILDING 2021-04-28 2021-04-28 Outpatient R VINNIE [facility] [id number] Univers 16:00:00 16:00:00 ALFONZO ity [facility] 2021-04-28 2021-04-28 Orders Doctor PRATT 1.2.840.114 [id number] Univers 00:00:00 00:00:00 Only Unassigned, [place] [id number] ity of [place] [facility] 4.2.7.2.686 Darian as [id number] [facility] [address] 2021-04-28 2021-04-28 Letter Doctor PRATT 1.2.840.114 [id number] Univers 00:00:00 00:00:00 (Out) Unassigned, [place]ER [id number] ity of [place] [facility] 4.2.7.2.686 Darian as [id number] [facility] [address] 2020-10-10 2020-10-11 Emergency E JULIANA, [facility] [id number] 18:02:00 05:39:00 DAVID 2019-11-12 2019-11-12 Outpatient DANGELO AZAR [facility] [id number] 00:00:00 00:00:00 VIDA miramontes 2019-08-06 2019-08-06 [facility] [id number] 11:31:28 14:15:00 Encounter David Block [id number] [place] 4.2.7.2.686 Surgical [id number] [place] 071 2019-08-06 2019-08-06 Anesthesia PeterDarius keys [facility] 1.2.840.11 [id number] 12:50:00 13:19:00 Jim Thakur Mckayla 350.1.13.10 [place] 4.2.7.2.686 Surgical [id number] [place] 020 2019-08-05 2019-08-05 Laboratory Only, [facility] 1.2.840.114 [id number] 09:04:50 09:19:50 Only Test Mckayla [id number] [place] 4.2.7.2.686 Professio [id number] [facility] 353 [facility] 2019-08-05 2019-08-05 [facility] [id number] Univers 08:45:00 08:45:00 [facility] 2019-08-05 2019-08-05 Orders Doctor TERENCE 1.2.840.114 [id number] 00:00:00 00:00:00 Only Unassigned, [place] [id number] [place] [facility] 4.2.7.2.686 [id number] [facility] 2019-07-16 2019-07-16 [facility] [id number] 10:00:00 13:45:00 Encounter David Block [id number] [place] 4.2.7.2.686 Surgical [id number] [place] [address] 2019-07-15 2019-07-15 [facility] [id number] [facility] 11:00:00 11:00:00 [facility] 2019-07-15 2019-07-15 Nurse Nurse, [facility] 1.2.840.114 [id number] 10:23:51 10:30:38 Visit General Mckayla [id number] Surgery [place] 4.2.7.2.686 Professio [phone] [facility] 377 [facility] 2019-07-15 2019-07-15 Telephone TERENCE Granado 1.2.840.114 [id number] 00:00:00 00:00:00 David KEANE [id number] [facility] 4.2.7.2.686 [id number] 014 2017-05-16 2017-05-16 Outpatient Andreas Abarca [id number] [facility]Clinic 10:18:00 10:18:00 Oern Lott DO, alW orks DO, PA PA 2017-03-09 2017-03-09 Outpatient Andreas Abarca. [id number] eClinic 13:30:00 13:30:00 Oren Esteban DO, a lWorks DO, PA PA Results This patient has no known results.
--- NOTE | 2022-01-13 17:01 | RAD REPORT ---
EXAM DESCRIPTION: RAD - Chest Single View - 01/13/2022 4:42 pm CLINICAL HISTORY: AMS COMPARISON: Chest Pa And Lat (2 Views) dated 12/14/2021; Chest Single View dated 06/04/2020; Chest Sin gle View dated 08/29/2018; Chest Pa And Lat (2 Views) dated 05/22/2018 FINDINGS: Lines: Pacemaker. Lungs: No evidence of edema or pneumonia. Pleural: No significant pleural effusions or pneumothorax. Cardiac: The heart size is within normal limits. Mediastinum: Within normal limits. Bones: No acute fractures. Other: None IMPRESSION: No acute cardiopulmonary disease.
--- NOTE | 2022-01-13 17:09 | RAD REPORT ---
EXAM DESCRIPTION: CT - Head Brain Wo Cont - 01/13/2022 4:55 pm CLINICAL HISTORY: altered mental status COMPARISON: Sinus Wo Cont dated 03/28/2021; Head Brain Wo Cont dated 06/04/2020 TECHNIQUE: All CT scans are performed using dose optimization technique as appropriate and may inclu de automated exposure control or mA/KV adjustment according to patient size. FINDINGS: No intracranial hemorrhage, hydrocephalus or extra-axial fluid collection.Remote right bas al ganglia lacunar infarct. Bilateral subcortical and deep white matter hypoattenuation likely reflec ting chronic small vessel ischemic changes. Partial opacified left maxillary sinus, frontal sinus, sphenoid sinus, and ethmoid air cells. The meka varium is intact. IMPRESSION: No acute intracranial abnormality.
[2022-01-13 17:59] LABS: Absolute Lymphocytes (CBC) 1.1 K/uL (0.7-4.9); Hematocrit 34.2 % (39.6-49.0); Lymphocytes % 24.8 % (15.3-44.8); MPV 8.9 fL (7.6-11.3); RBC Red Blood Cell Count 3.76 M/uL (4.33-5.43)
[2022-01-13 18:17] LABS: Potassium 4.3 mmol/L (3.5-5.1); Troponin High Sensitivity 8.9 pg/mL (<58.9)
[2022-01-13 18:40] LABS: Urine Blood Negative (Negative); Urine Glucose Negative (Negative); Urine Protein Negative (Negative); Urine Specific Gravity >=1.030 (1.005-1.030); Urine pH 5.5 (5.0-7.0)
--- NOTE | 2022-01-13 18:51 | EDPHYS ---
Physician Documentation [facility] Name: Ángel Haddad Age: 67 yrs Sex: Male : 1955 Arrival Date: 01/13/2022 Time: 15:44 Bed DIS2 Private MD: ED Physician Ilya Vallejo HPI: 01/13 15:46 This 67 yrs old Male presents to ER via Unassigned with complaints of ams. ms3 15:46 The patient presents with confusion. Onset: The symptoms/episode began/occurred 2 ms3 week(s) ago. Possible causes: CVA or TIA. Associated signs and symptoms: The patient has no apparent associated signs or symptoms. Current symptoms: In the emergency department the patient's symptoms have resolved, the patient is alert and fully oriented, has normal speech, has normal responsiveness, has no confusion. Patient's baseline: Neuro: alert and fully oriented. Patient states he saw Dr. Hanna in his office yesterday. Patient is to have CT head performed on Sunday. EMS called as patient had brief episode of confusion today.. Historical: - Allergies: 15:55 apixaban; jl7 15:55 CLOPIDOGREL; jl7 15:55 tramadol; jl7 - PMHx: 15:55 Atrial Fib; CVA; kidney failure; Myocardial infarction; Pace maker; jl7 - Immunization history:: Adult Immunizations. - Social history:: Smoking status: Patient denies any tobacco usage or history of. ROS: 15:46 Constitutional: Negative for fever, and chills. ENT: Negative for injury, pain, and ms3 discharge, Neck: Negative for injury, pain, and swelling, Cardiovascular: Negative for chest pain, and palpitations. Respiratory: Negative for shortness of breath, cough, wheezing, and pleuritic chest pain, Abdomen/GI: Negative for abdominal pain, nausea, vomiting, diarrhea, and constipation, MS/Extremity: Negative for injury and deformity, Skin: Negative for injury, rash, and discoloration, Psych: Negative for depression, anxiety, suicide ideation, homicidal ideation, and hallucinations. 15:46 Neuro: Positive for altered mental status. 15:46 All other systems are negative. Exam: 15:46 Constitutional: This is a well developed, well nourished patient who is awake, alert, ms3 and in no acute distress. Eyes: Pupils equal round and reactive to light, extra-ocular motions intact. Lids and lashes normal. Conjunctiva and sclera are non-icteric and not injected. Periorbital areas with no swelling, redness, or edema. Neck: Trachea midline, no cervical lymphadenopathy. Supple, full range of motion without nuchal rigidity, or vertebral point tenderness. No Meningismus. Chest/axilla: Normal chest wall appearance and motion. Nontender with no deformity. Cardiovascular: Regular rate and rhythm with a normal S1 and S2. No gallops, murmurs, or rubs. Normal PMI, no JVD. No pulse deficits. Respiratory: Lungs have equal breath sounds bilaterally, clear to auscultation and percussion. No rales, rhonchi or wheezes noted. No increased work of breathing, no retractions or nasal flaring. Abdomen/GI: Soft, non-tender, with normal bowel sounds. No distension or tympany. No guarding or rebound. No evidence of tenderness throughout. Skin: Warm, dry with normal turgor. Normal color with no rashes, no lesions, and no evidence of cellulitis. 15:46 Eyes: Strabismus present- right eye deviates inward. 15:46 Neuro: Orientation: is normal, Mentation: is normal, Memory: is normal, Cerebellar function: dysmetria is noted on the right. Vital Signs: 16:16 BP 147 / 84; Pulse 68; Resp 20; Temp 96.9; Pulse Ox 100% ; Weight 89.81 kg; Height 6 kb3 ft. 2 in. (187.96 cm); Pain 0/10; 20:14 BP 148 / 84; Pulse 71; Resp 16; Pulse Ox 100% ; kb3 16:16 Body Mass Index 25.42 (89.81 kg, 187.96 cm) kb3 MDM: 16:00 Patient medically screened. ms3 18:22 ED course: Discussed case with Dr Hanna. He agrees with discharge and outpatient ms3 follow up if urine is negative.. 19:07 Data reviewed: vital signs, nurses notes, lab test result(s), radiologic studies, and ms3 as a result, I will discharge patient. ED course: Discussed labs, CT with patient and his . Patient to follow-up with Dr. Hanna in 2 to 3 days. Patient understands agrees with plan. All questions were answered. Return precautions discussed include worsening symptoms, or any other concerns. On reevaluation patient is alert and oriented x4, no apparent distress, nontoxic, ambulatory in emergency room. 01/13 15:45 Order name: Basic Metabolic Panel; Complete Time: 18:19 ms3 01/13 15:45 Order name: CBC with Diff; Complete Time: 18:19 ms3 01/13 15:45 Order name: Troponin HS; Complete Time: 18:19 ms3 01/13 15:45 Order name: XRAY Chest (1 view); Complete Time: 18:19 ms3 01/13 15:45 Order name: Urine Microscopic Only; Complete Time: 19:07 ms3 01/13 18:40 Order name: Urine Dipstick-Ancillary; Complete Time: 18:49 EDMS 01/13 15:45 Order name: EKG; Complete Time: 15:46 ms3 01/13 15:45 Order name: Cardiac monitoring ms3 01/13 15:45 Order name: EKG - Nurse/Tech ms3 01/13 15:45 Order name: IV Saline Lock; Complete Time: 17:50 ms3 01/13 15:45 Order name: Labs collected and sent; Complete Time: 17:50 ms3 01/13 15:45 Order name: O2 Per Protocol ms3 01/13 15:45 Order name: CT Head Brain wo Cont ms3 01/13 15:50 Order name: Head Brain Wo Cont; Complete Time: 18:19 EDMS 01/13 15:45 Order name: O2 Sat Monitoring ms3 01/13 15:45 Order name: Urine Dipstick-Ancillary (obtain specimen) ms3 Administered Medications: No medications were administered Disposition Summary: 01/13/22 18:50 Discharge Ordered Location: Home ms3 Condition: Stable ms3 Diagnosis - Confusion ms3 - History of stroke ms3 Followup: ms3 - With: Viktor Hanna MD - When: 2 - 3 days - Reason: Recheck today's complaints Discharge Instructions: - Discharge Summary Sheet ms3 - Confusion ms3 Forms: - Medication Reconciliation Form ms3 - Thank You Letter ms3 - Antibiotic Education ms3 - Prescription Opioid Use ms3 Signatures: Dispatcher [employer] EDPankaj Restrepo RN RN jl7 Ilya Vallejo DO DO ms3 Mali Dumas, RN RN kb3
--- NOTE | 2022-01-13 18:51 | ER ---
Nurse's Notes [facility] Name: Ángel Haddad Age: 67 yrs Sex: Male : 1955 Arrival Date: 01/13/2022 Time: 15:44 Bed DIS2 Private MD: Diagnosis: Confusion;History of stroke Presentation: 01/13 15:52 Chief complaint: EMS states: Pt has been with intermittent confusion x 2 weeks, has a jl7 pacemaker cannot have MRI, CT scheduled for next Sunday, had some reported confusion sometime this morning and daughter wants the CT now. Coronavirus screen: At this time, the client does not indicate any symptoms associated with coronavirus-19. Ebola Screen: No symptoms or risks identified at this time. No acute neurological deficit is noted. The patients blood glucose was checked before arriving to the hospital and was found to be normal. Initial Sepsis Screen: Does the patient meet any 2 criteria? No. Patient's initial sepsis screen is negative. Does the patient have a suspected source of infection? No. Patient's initial sepsis screen is negative. Risk Assessment: Do you want to hurt yourself or someone else? Patient reports no desire to harm self or others. Onset of symptoms is unknown. Care prior to arrival: Glucose check: 102 BP 155/92. 15:52 Acuity: MARGO 3 jl7 15:52 Method Of Arrival: EMS: [facility] 7 Triage Assessment: 15:55 The onset of the patients symptoms was December 30, 2021 at 12:00. General: Appears in jl7 no apparent distress. uncomfortable, Behavior is calm, cooperative, appropriate for age. Pain: Denies pain. Neuro: Level of Consciousness is awake, alert, obeys commands, Oriented to person, place, time, situation, Reports none. Stroke Activation: Symptom onset > 6 hours Physician: Stroke Attending; Name: ; Notified At: ; Arrived At: Physician: Chief Stroke Resident; Name: ; Notified At: ; Arrived At: Physician: Stroke Resident; Name: ; Notified At: ; Arrived At: Physician: ED Attending; Name: ; Notified At: ; Arrived At: Physician: ED Resident; Name: ; Notified At: ; Arrived At: Historical: - Allergies: 15:55 apixaban; jl7 15:55 CLOPIDOGREL; jl7 15:55 tramadol; jl7 - PMHx: 15:55 Atrial Fib; CVA; kidney failure; Myocardial infarction; Pace maker; jl7 - Immunization history:: Adult Immunizations. - Social history:: Smoking status: Patient denies any tobacco usage or history of. Screenin:07 Abuse screen: Denies threats or abuse. Denies injuries from another. Nutritional kb3 screening: No deficits noted. Tuberculosis screening: No symptoms or risk factors identified. Fall Risk None identified. Assessment: 20:07 General: Pt to triage for discharge. Denies pain. AAO x4. kb3 Vital Signs: 16:16 BP 147 / 84; Pulse 68; Resp 20; Temp 96.9; Pulse Ox 100% ; Weight 89.81 kg; Height 6 kb3 ft. 2 in. (187.96 cm); Pain 0/10; 20:14 BP 148 / 84; Pulse 71; Resp 16; Pulse Ox 100% ; kb3 16:16 Body Mass Index 25.42 (89.81 kg, 187.96 cm) kb3 ED Course: 15:44 Patient arrived in ED. am2 15:44 Ilya Vallejo DO is Attending Physician. ms3 15:55 Triage completed. jl7 15:55 Arm band placed on right wrist. jl7 16:44 XRAY Chest (1 view) In Process Unspecified. EDMS 16:57 Head Brain Wo Cont In Process Unspecified. EDMS 17:50 Basic Metabolic Panel Sent. zm 17:50 CBC with Diff Sent. zm 17:50 Troponin HS Sent. zm 17:50 Inserted saline lock: 20 gauge in left antecubital area, using aseptic technique. Blood zm collected. 18:50 Viktor Hanna MD is Referral Physician. ms3 20:07 Patient has correct armband on for positive identification. kb3 20:07 No provider procedures requiring assistance completed. IV discontinued, intact, kb3 bleeding controlled, No redness/swelling at site. Administered Medications: No medications were administered Medication: 20:07 VIS not applicable for this client. kb3 Outcome: 18:50 Discharge ordered by . ms3 20:07 Discharged to home ambulatory. kb3 20:07 Condition: good 20:07 Discharge instructions given to patient, Instructed on discharge instructions, follow up and referral plans. medication usage, Demonstrated understanding of instructions, follow-up care, medications. 20:14 Patient left the ED. kb3 Signatures: Dispatcher [employer] Pankaj Gatica RN RN jl7 Angeles Orantes am2 Ilya Vallejo DO DO ms3 Sarha Klein Kelly, RN RN kb3
[2022-01-13 18:56] LABS: Urine Mucus Slight /HPF (None Seen); Urine RBC <5 /HPF (None Seen)
[2022-01-13 20:28] VITALS: TEMP 96.9; O2SAT 100
[2022-01-13 20:34] VITALS: BP 148/84
== END 2022-01-13 20:14 | disposition home or self-care (01) ==
LOC: ER 15:39
DX: R41.0 Disorientation, unspecified (principal); Z86.73 Personal history of transient ischemic attack (TIA), and cerebral infarction without residual deficits; Z95.0 Presence of cardiac pacemaker; Z88.5 Allergy status to narcotic agent; Z88.8 Allergy status to other drugs, medicaments and biological substances
CPT/HCPCS: 36415; 70450; 71045; 80048; 81003; 81015; 84484; 85025; 99284

== ENCOUNTER 2022-04-25 00:48 | Observation (INO) | payer OTHER ==
--- OUTSIDE RECORDS SUMMARY | 2022-04-25 00:54 | XMS REPORT | Continuity of Care Document ---
:1955 Author Organization [facility] t Address [address] [place] [address] Care Team Providers Name Role Phone VIDA AZAR I. Primary Care Physician Unavailable MAGDALENE FORTE Attending Clinician Unavailable ZAK TESFAYE Attending Clinician Unavailable DAVID GRANADO Attending Clinician Unavailable Only, Ang Db Test Attending Clinician Unavailable EbAlfonzo Vogel Attending Clinician ALFONZO B[place]MING[place]AM Attending Clinician Unavailable MAGDALENE FORTE Attending Clinician Unavailable Sheila Key RN Attending Clinician Unavailable Doctor Unassigned, [place] Attending Clinician Unavailable DAVID ANDREWS Attending Clinician [...] Number Effective Date Expiration Date S lino [facility] WELLMED [id number] 2020 00:00:00 WELLMED/[employer] [id number] 2019 MEDICARE ADVANTAGE 00:00:00 [facility] [id number] 2019 MEDICARE SUPPLEMENT 00:00:00 [facility] MEDICARE [id number] 2016 ADVANTAGE 00:00:00 Problems Condition Condition Condition Status Onset Resolution Last Treating Co mments Source Name Details Category Date Date Treatment Clinician Date Diabetes Diabetes Problem Active 2018-01-10 Memoria mellitus mellitus 02:57:21 l without without [place] mention of mention of complicati complicati on, type on, type II or II or unspecifie unspecifie d type, d type, uncontroll uncontroll ed ed Active Problem 01/10/2018 Andreas Rima Lott Gastro-eso Problem Active 2018-01-10 M emoria phageal Gastro-eso 02:57:21 l reflux phageal Shahid disease reflux with disease esophagiti with s esophagiti s Active Problem 01/10/2018 Andreas Lott Malignant Malignant Problem Active 2018-01-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:57: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 Active Problem 01/10/2018 Andreas Lott Hyperlipid Hyperlipi Problem Active 2018-01-10 Memoria emia, demia, 02:57:21 l unspecifie unspecifie He rmann d d Active Problem 01/10/2018 Andreas Lott Chronic Chronic Problem Active 2018-01-10 Me carmela kidney kidney 02:57:21 l disease, disease, Raúl n unspecifie unspecifie d d Active Problem 01/10/2018 Andreas Lott Unspecifie Unspecifi Problem Active 2018-01-10 Memoria d ed 02:57:21 l superficia superficia He rmann l injury l injury of right of right foot, foot, initial initial encounter encounter Active Problem 01/10/2018 Andreas Lott 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 Active Problem 01/10/2018 Andreas Lott Anxiety Anxiety Problem Active 2018-01-10 Me moria disorder, disorder, 02:57:21 l unspecifie unspecifie He rmann d d Active Problem 01/10/2018 Andreas Lott Atrial Atrial Problem Active 2018-01-10 Beka yelitza fibrillati fibrillati 02:57:21 l on on Active [place] Problem 01/10/2018 Andreas Lott 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 02:57:21 l rosis of rosis of Raúl n augustine augustine coronary coronary artery artery Active Problem 01/10/2018 Andreas Rima Lott Hyperlipid Hyperlipi Problem Active 2018-01-10 Memoria emia demia 02:57:21 l Active Shahid Problem 01/10/2018 Andreas Lott Persistent Persisten Problem Active 2018-01-10 Memoria atrial t atrial 02:57:21 l fibrillati fibrillati He rmann on on Active Problem 01/10/2018 Andreas Lott Left Left Problem Active 2018-01-10 Memor ia ventricula ventricula 02:57:21 l r failure r failure Herm angie Active Problem 01/10/2018 Andreas Lott Sleep Sleep Problem Active 2018-01-10 Memor ia apnea, apnea, 02:57:21 l unspecifie unspecifie He rmann d d Active Problem 01/10/2018 Andreas Lott Obstructiv Obstructi Problem Active 2018-01-10 Memoria e sleep ve sleep 02:57:21 l apnea apnea [place] (adult) (adult) (pediatric (pediatric ) ) Active Problem 01/10/2018 Andreas Rima Lott Hypertroph Hypertrop Problem Active 2018-01-10 Memoria y (benign) hy 02:57:21 l of (benign) Shahid prostate of without prostate urinary without obstructio urinary n and obstructio other n and lower other urinary lower tract urinary symptoms tract [LUTS] symptoms [LUTS] Active Problem 01/10/2018 Andreas Lott Chronic Chronic Problem Active 2018-01-10 Me moria kidney kidney 02:57:21 l disease, disease, Raúl n Stage III Stage III (moderate) (moderate) Active Problem 01/10/2018 Andreas Lott GERD GERD Problem Active 2018-01-10 Memor ia Active 02:57:21 l Problem Shahid 01/10/2018 Andreas Lott Unspecifie Unspecifi Problem Active 2018-01-10 Memoria d sleep ed sleep 02:57:21 l apnea apnea [place] Active Problem 01/10/2018 Andreas Lott Hypothyroi Hypothyro Problem Active 2018-01-10 Memoria dism, idism, 02:57:21 l unspecifie unspecifie He rmann d d Active Problem 01/10/2018 Andreas Lott 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 Memoria gout, Idiopathic 02:57:21 l unspecifie gout, Raúl n d site unspecifie d site Active Diagnosis 01/10/2018 Andreas Lott Chronic Chronic Diagnosis Active 2018-01-10 Memoria kidney kidney 02:57:21 l disease, disease, Raúl n stage 3 stage 3 (moderate) (moderate) Active Diagnosis 01/10/2018 Andreas Lott Other Other Problem Active [...] ia arthropath arthropath 02:57:21 l y, y, Shahid unspecifie unspecifie d d Active Problem 01/10/2018 [...] Memoria mellitus mellitus 02:57:21 l without without [place] mention of mention of complicati complicati on, [...] 2018-01-10 Memoria pain pain 02:57:21 l Active [place] Problem 01/10/2018 Andreas Lott Allergies, Adverse Reactions, Alerts Allergy Allergy Status Severity Reaction(s) Onset Inactive Treating Comm ents Source Name Type Date Date Clinician ADHESIVE DRUG Active Other-Cmnt Univ ers TAPE-CLIVE -27 ity of ICONES 00:00: [place] 00 [facility] APIXABAN DRUG Active Rash 2020-0 Univers INGREDI -27 ity of 00:00: [place] 00 [facility] CLOPIDOG DRUG Active Other-Cmnt 2020-0 Univ ers REL INGREDI 27 ity of 00:00: [place] 00 [facility] DABIGATR DRUG Active Rash 2020-0 Univers AN INGREDI 27 ity of ETEXILAT 00:00: [place] E 00 [...] DRUG Active Rash 2020-0 Univers BAN INGREDI 27 ity of 00:00: [place] 00 [facility] plavix plavix Active Info Not 2017- Memoria Available 2-22 l 00:00: Social History Social Habit Start Date Stop Date Quantity Comments Source Exposure to 2021-09-20 2021-09-30 Yes [facility] SARS-CoV-2 00:00:00 18:39:00 [facility] (event) [place] Tobacco use and 2019-07-14 2019-07-14 Smokeless tobacco Un iversity of exposure 00:00:00 00:00:00 non-user [place] [facility] Sex Ass[birth year] At [birth year] Universit y of 00:00:00 00:00:00 [facility] [place] Smoking Status Start Date Stop Date Source Never smoked tobacco [facility] Medications Ordered Filled Start Stop Current Ordering Indication Dosage Frequency Signature Comments Components Source Medication Medication Date Date Medication? Clinician (SIG) Name Name diphenhydrA 0 Yes 50mg Take 50 mg Univers MINE 5-20 by mouth ity of (BENADRYL) 14:15: daily. [place] 25 mg 57 Medical capsule Branch naproxen 2019-0 Yes 220{cap Take 220 Un thong (NAPROSYN 5-20 nevaeh} capsules ity o f ORAL) 14:15: by mouth [place] 57 daily. Medical Branch PROBENECID- 2019-0 Yes 500{cap Take 500 Univers COLCHICINE 5-20 nevaeh} capsules ity of ORAL 14:15: by mouth [place] 57 daily. Medical Branch BACLOFEN 2019-0 Yes 200{cap Take 200 Un thong ORAL 5-20 nevaeh} capsules ity of 14:15: by mouth [place] 57 daily. Medical Branch allopurinoL 0 Yes 100mg Take 100 U nivers 100 [...] mouth ity o f tablet 14:15: daily. [place] [address] Medical Branch ramipril 5 2019-0 Yes 5mg Take 5 mg Un thong mg capsule 5-20 by mouth ity o f 14:15: daily. [place] [address] Medical Branch sotalol 2019-0 Yes 120mg Take [...] 20 mg 57 Medical tablet Branch pantoprazol 2020-0 Yes 20mg Take 20 mg Univers e [...] [place] tablet 57 daily. Medical Branch Levothyroxi 2020-0 Yes 137{cap Take 137 Univers ne 137 [...] mouth ity o f tablet 14:15: daily. [place] [address] Medical Branch ramipril 5 Yes 5mg Take 5 mg Un thong mg capsule 5-20 by mouth ity o f 14:15: daily. [place] [address] Medical Branch sotalol Yes 120mg Take 120 [...] 14:15: mouth [place] 57 daily. Medical Branch Escitalopra 2017-03 Yes Karoline Rivera TAKE ONE Memoria m Oxalate 0-25 TABLET BY l 02:57: MOUTH Shahid 21 DAILY Amlodipine 2017-03 Yes Karoline Rivera 1 tablet Memoria Besylate 0-25 l 02:57: Shahid 21 Baclofen 2017-03 Yes Karoline Rivera TAKE ONE M emoria 0-25 TABLET BY l 02:57: MOUTH [place] 21 EVERY SIX HOURS NEEDED Levothyroxi 2017-03 Yes Karoline Rivera TAKE ONE Memoria ne Sodium 0-25 TABLET BY l 02:57: MOUTH [place] 21 DAILY ON SUNDAY TO SUNDAY AND SUNDAY AND SUNDAY Ramipril 2017-03 Yes Karoline Rivera TAKE ONE M emoria 0-25 CAPSULE BY l 02:57: MOUTH [place] 21 DAILY Pantoprazol 2017-03 Yes Karoline Rivera 1 tablet Memoria e Sodium 0-25 l 02:57: [place] 21 Sotalol HCl 2017-03 Yes Karoline Rivera 1 tablet Memoria 0-25 l 02:57: Shahid 21 Cialis 2017-03 Yes Karoline Rivera 1 tablet Mem oria 0-25 l 02:57: Shahid 21 Lexapro 2017-03 Yes Karoline Rivera TAKE ONE Me moria 0-25 TABLET BY l 02:57: MOUTH [place] 21 DAILY Sotalol HCl 2017-03 Yes Karoline Rivera TAKE two Memoria 0-25 TABLET BY l 02:57: MOUTH Shahid 21 TWICE A DAY Norvasc 2017-03 Yes Karoline Rivera TAKE ONE Me moria 0-25 TABLET BY l 02:57: MOUTH [place] 21 DAILY Allopurinol 2017-03 Yes Karoline Rivera 1 tablet Memoria 0-25 l 02:57: [place] 21 Protonix 2017-03 Yes Karoline Rivera TAKE ONE M emoria 0-25 TABLET BY l 02:57: MOUTH ONE Shahid 21 TIME DAILY Ramipril 2017-03 Yes Karoline Rivera TAKE ONE M emoria 0-25 CAPSULE BY l 02:57: MOUTH Shahid 21 DAILY Gabapentin 2017-03 Yes Karoline Rivera 1 capsule Memoria 0-25 l 02:57: [place] 21 Flomax 2017-03 Yes Karoline Rivera TAKE ONE Mem oria 0-25 CAPSULE BY l 02:57: MOUTH Shahid 21 DAILY 30 MINUTES BEFORE SAME MEAL Eliquis 2017-03 Yes Karoline Rivera not Memori a 0-25 defined l 02:57: Shahid 21 Synthroid 2017-03 Yes Karoline Rivera 1 tablet Memoria 0-25 l 02:57: [place] 21 Nitroglycer 2017-03 Yes Karoline Rivera 1 tablet Memoria in 0-25 under the l 02:57: tongue and Shahid 21 allow to dissolve as needed Tamsulosin [...] BY l 02:57: MOUTH Shahid 21 DAILY Chlorthalid 2017-03 Yes Karoline Rivera 1/2 tab Memoria one 0-25 l 02:57: [place] 21 Levothyroxi 2017-03 Yes Karoline Rivera 1 tablet Memoria ne Sodium 0-25 l 02:57: Shahid 21 Flomax 2017-03 Yes Karoline Rivera TAKE ONE Mem oria 0-25 CAPSULE BY l 02:57: MOUTH [place] 21 DAILY 30 MINUTES BEFORE SAME MEAL Escitalopra 2017-03 Yes Karoline Rivera TAKE ONE Memoria m Oxalate 0-25 TABLET BY l 02:57: MOUTH [place] 21 DAILY Amlodipine 2017-03 Yes Karoline Rivera 1 tablet Memoria Besylate 0-25 l 02:57: [place] 21 Baclofen 2017-03 Yes Karoline Rivera TAKE ONE M emoria 0-25 TABLET BY l 02:57: MOUTH [place] 21 EVERY SIX HOURS NEEDED Levothyroxi 2017-03 Yes Karoline Rivera TAKE ONE Memoria ne Sodium 0-25 TABLET BY l 02:57: MOUTH Shahid 21 DAILY ON SUNDAY TO SUNDAY AND [...] 1 tablet Mem oria 0-25 l 02:57: [place] 21 Lexapro 2017-03 Yes Karoline Rivera TAKE ONE Me moria 0-25 TABLET BY l 02:57: MOUTH Shahid 21 DAILY Sotalol HCl 2017-03 Yes Karoline Rivera TAKE two Memoria 0-25 TABLET BY l 02:57: MOUTH [place] 21 TWICE A DAY Norvasc 2017-03 Yes [...] Rivera 1 capsule Memoria 0-25 l 02:57: [place] 21 Eliquis 2017-03 Yes Karoline Rivera not Memori a 0-25 defined l 02:57: Shahid 21 Synthroid 2017-03 Yes Karoline Rivera 1 tablet Memoria 0-25 l 02:57: [place] 21 Nitroglycer 2017-03 Yes Karoline Rivera 1 tablet Memoria in 0-25 under the l 02:57: tongue and [place] 21 allow to dissolve as needed Tamsulosin [...] BY l 02:57: MOUTH Shahid 21 DAILY Chlorthalid 2017-03 Yes Karoline Rivera 1/2 tab Memoria one 0-25 l 02:57: Shahid 21 Levothyroxi 2017-03 Yes Karoline Rivera 1 [...] 1 tablet Memoria Besylate 0-25 l 02:57: [place] 21 Baclofen 2017-03 Yes Karoline Rivera TAKE ONE M emoria 0-25 TABLET BY l 02:57: MOUTH [place] 21 EVERY SIX HOURS NEEDED Levothyroxi 2017-03 Yes Karoline Rivera TAKE ONE Memoria ne Sodium 0-25 TABLET BY l 02:57: MOUTH [place] 21 DAILY ON SUNDAY TO SUNDAY AND SUNDAY AND SUNDAY Ramipril 2017-03 Yes Karoline Rivera TAKE ONE M emoria 0-25 CAPSULE BY l 02:57: MOUTH [place] 21 DAILY Pantoprazol 2017-03 Yes Karoline Rivera 1 tablet Memoria e Sodium 0-25 l 02:57: Shahid 21 Sotalol HCl 2017-03 Yes Karoline Rivera 1 tablet Memoria 0-25 l 02:57: Shahid 21 Cialis 2017-03 Yes Karoline Rivera 1 tablet Mem oria 0-25 l 02:57: Shahid 21 Lexapro 2017-03 Yes Karoline Rivera TAKE ONE Me moria 0-25 TABLET BY l 02:57: MOUTH [place] 21 DAILY Sotalol HCl 2017-03 Yes Karoline Rivera TAKE two Memoria 0-25 TABLET BY l 02:57: MOUTH Shahid 21 TWICE A DAY Norvasc 2017-03 Yes Karoline Rivera TAKE ONE Me moria 0-25 TABLET BY l 02:57: MOUTH Shahid 21 DAILY Allopurinol 2017-03 Yes Karoline Rivera 1 tablet Memoria 0-25 l 02:57: [place] 21 Protonix 2017-03 Yes Karoline Rivera TAKE ONE M emoria 0-25 TABLET BY l 02:57: MOUTH ONE [place] 21 TIME DAILY Ramipril 2017-03 Yes Karoline Rivera TAKE ONE M emoria 0-25 CAPSULE BY l 02:57: MOUTH [place] 21 DAILY Gabapentin 2017-03 Yes Karoline Rivera 1 capsule Memoria 0-25 l 02:57: Shahid 21 Eliquis 2017-03 Yes Karoline Rivera not Memori a 0-25 defined l 02:57: Shahid 21 Synthroid 2017-03 Yes Karoline Rivera 1 tablet Memoria 0-25 l 02:57: [place] 21 Nitroglycer 2017-03 Yes Karoline Rivera 1 tablet Memoria in 0-25 under the l 02:57: tongue and [place] 21 allow to dissolve as needed Tamsulosin 2017-03 Yes Karoline Rivera 1 capsule Memoria HCl 0-25 30 minutes l 02:57: after the same meal each day Baclofen 2017-03 Yes Karoline Rivera TAKE ONE M emoria 0-25 TABLET BY l 02:57: MOUTH [place] 21 EVERY 6 HOURS NEEDED Atorvastati 2017-03 Yes Karoline Rivera TAKE ONE Memoria n Calcium 0-25 TABLET BY l 02:57: MOUTH Shahid 21 DAILY Chlorthalid 2017-03 Yes Karoline Rivera 1/2 tab Memoria one 0-25 l 02:57: Shahid 21 Levothyroxi 2017-03 Yes Karoline Rivera 1 tablet Memoria ne Sodium 0-25 l 02:57: [place] 21 Allopurinol 2018- Yes Karoline Rivera TAKE ONE Memoria 6-20 TABLET BY l 00:00: MOUTH Shahid 00 DAILY Allopurinol 2018 Yes Karoline Rivera TAKE ONE Memoria 6-20 TABLET BY l 00:00: MOUTH Shahid 00 DAILY Allopurinol 2017- Yes Karoline Rivera TAKE ONE Memoria 6-20 TABLET BY l 00:00: MOUTH [place] 00 DAILY Synthroid 2015-03 Yes Karoline Rivera 1 tablet Memoria 0-27 l 00:00: [place] 00 Synthroid 2015-03 Yes Karoline Miguel 1 tablet Memoria 0-27 l 00:00: Shahid 00 Synthroid 2015-03 Yes Karoline Rivera 1 tablet Memoria 0-27 l 00:00: Shahid 00 Powderly 0 Yes Karoline Rivera 1 tablet Beka yelitza 8-28 as needed l 00:00: [place] 00 Powderly 0 Yes Karoline Rivera 1 tablet [place] yelitza 8-28 as needed l 00:00: Shahid 00 Powderly 0 Yes Karoline Rivera 1 tablet [place]ek[place] yelitza 8-28 as needed l 00:00: Shahid 00 Cholestyram 0 Yes Karoline Rivera 1 packet Memoria ine 7-22 mixed with l 00:00: water or [place] 00 non-carbon ated drink Cholestyram Yes Karoline Rivera 1 packet Memoria ine 7-22 mixed with l 00:00: water or Shahid 00 non-carbon ated drink Cholestyram Yes Karoline Rivera 1 packet Memoria ine 7-22 mixed with l 00:00: water or Shahid 00 non-carbon ated drink Clonazepam Yes Karoline Miguel 1 tablet Memoria 6-15 l 00:00: Shahid Clonazepam Yes Karoline Miguel 1 tablet Memoria 6-15 l 00:00: Shahid 00 Clonazepam 0 Yes Karoline Rivera 1 tablet Memoria 6-15 l 00:00: Shahid 00 Clonidine 2013-0 Yes Karoline Rivera 1 tablet Memoria HCl 9-08 l 00:00: Shahid 00 Clonidine 2013-0 Yes Karoline Rivera 1 tablet Memoria HCl 9-08 l 00:00: Shahid 00 Clonidine 2013-0 Yes Karoline Rivera 1 tablet Memoria HCl 9-08 l 00:00: [place] 00 Vital Signs Vital Name Observation Time Observation Value Comments Source Weight 2017-03-09 18:30:00 [facility] Shahid Height 2017-03-09 18:30:00 [facility] Shahid Respitory Rate 2017-03-09 18:30:00 Memori al [place] Heart Rate 2017-03-09 18:30:00 [facility] Shahid Diastolic (mm Hg) 2017-03-09 18:30:00 Mem orial [place] Systolic (mm Hg) 2017-03-09 18:30:00 Beka rial Shahid Temperature Oral (F) 2017-03-09 18:30:00 97.4 F [facility] [place] Procedures Procedure Date / Time Performed Performing Clinician [facility] NOTICE OF BILLING 2021-04-28 21:54:19 Doctor Unassigned, No [facility] [place] [facility] Name Medical B [facility] PATIENTS ASSIGNMENT OF BENEFITS 2021-04-28 21:54:02 Doctor Unassigned, No [facility] Name Medical Branch Encounters Start End Encounter Admission Attending Care Care Encounter Source Date/Time Date/Time Type Type Clinicians Facility Department ID 2022-04-25 Outpatient [id number] Memoria 00:52:05 [id number] Shahid [id number] 2022-04-11 Outpatient [facility] [id number] [place] 12:43:29 [id number] [facility] 2022-04-05 Outpatient [facility] [id number] [place] 11:39:25 [id number] [facility] 2022-01-13 Outpatient [id number] Memoria 15:43:12 [id number] Shahid [id number] 2021-12-11 Outpatient [facility] [id number] [place] 08:39:01 [id number] [facility] 2021-09-13 Outpatient REANNA [facility] [id number] [place] 13:01:37 MAGDALENE [id number] [facility] 2021-08-23 Outpatient [facility] [id number] [place] 09:19:23 [id number] [facility] 2021-06-14 [facility] [id number] [place] 10:21:53 ZAK [id number] [facility] 2021-06-11 Outpatient [facility] [id number] [place] 10:00:13 [facility] 2021-05-17 [facility] [id number] [place] 14:54:16 [facility]28 [facility] [id number] [place] 16:42:22 [facility] 2021-04-18 Outpatient [id number] Memoria 22:57:46 [id number] Shahid [id number] 2021-04-13 [facility] [id number] [place] 11:50:38 [facility] 2021-03-01 Outpatient [facility] [id number] [place] 11:36:41 [facility] 2021-03-01 [facility] [id number] [place] 09:47:40 [facility] 2021-02-25 [facility] [id number] [place] 10:48:59 [facility] 2021-02-18 [facility] [id number] [place] 10:34:54 [facility] 2021-01-13 Outpatient Dima GRANADO [facility] [id number] Univers 19:20:35 [facility] 2021-01-13 Outpatient Dima GRANADO [facility] [id number] Univers 19:20:35 [facility] 2021-01-12 [facility] [id number] [place] 14:58:16 [facility] 2022-09-05 2022-09-05 [facility] [id number] [place] 14:30:00 14:30:00 [facility] 2022-04-11 2022-04-11 [facility] [id number] [place] 13:00:00 13:42:00 [facility] 2021-09-30 2021-09-30 Laboratory Only, Ang Db Test [facility] 1.2.8 40.114 [id number] Univers 18:45:00 19:00:00 Only Alfonzo [place] [id number] 4.2.7.2.686 Darian as ANDRE?BLEA [phone] [address] MEDICAL OFFICE [facility] 2021-09-30 2021-09-30 Outpatient R JAIMEE [facility] [id number] Univers 18:45:00 18:45:00 [facility] 2021-05-02 2021-05-02 Outpatient REANNA, [facility] [id number] [facility] 08:15:00 15:30:00 MAGDALENE 2021-04-29 2021-04-29 Letter TERENCE Key [id number] Univers 00:00:00 00:00:00 (Out) Sheilasusana KEANE [id number] it y of [facility] [id number] Darian as [phone] [facility] 019 Branch 2021-04-28 2021-04-28 Laboratory Only, Ang Db Test [facility] 1.2.8 40.114 [id number] Univers 16:00:00 16:15:00 [facility] [id number] ity of [place] 4.2.7.2.686 Darian as ANDRE?BLEA [phone] [address] MEDICAL OFFICE BUILDING 2021-04-28 2021-04-28 Outpatient Dima BIRMING[place]AM [facility] [id number] Univers 16:00:00 16:00:00 [facility] 2021-04-28 2021-04-28 Orders Doctor PRATT 1.2.840.114 [id number] Univers 00:00:00 00:00:00 Only Unassigned, LAKHWINDER [id number] ity of [place] [facility] 4.2.7.2.686 Darian as [phone] [facility] 009 Branch 2021-04-28 2021-04-28 Letter Doctor PRATT 1.2.840.114 [id number] Univers 00:00:00 00:00:00 (Out) Unassigned, LAKHWINDER [id number] ity of [place] [facility] [id number] Darian as [phone] [facility] 044 Branch 2020-10-10 2020-10-11 Emergency E JULIANA, [id number] 18:02:00 05:39:00 DAVID 2019-11-12 2019-11-12 Outpatient DANGELO AZAR [facility] [id number] 00:00:00 00:00:00 VIDA Lang stan miramontes 2019-08-06 2019-08-06 [facility] [id number] 11:31:28 14:15:00 Encounter David Garcia Mckayla [id number] [place] 4.2.7.2.686 Surgical [id number] [place] [address] 2019-08-06 2019-08-06 Anesthesia Darius Mcdowell [facility] 1.2.840.11 [id number] 12:50:00 13:19:00 Jim Thakur [id number] [place] 4.2.7.2.686 Surgical [id number] [place] [id number] 2019-08-05 2019-08-05 Laboratory Only, [facility] 1..840.114 [id number] 09:04:50 09:19:50 Only Test Mckayla [id number] [place] 4.2.7.2.686 Professio [id number] [address] 2019-08-05 2019-08-05 [facility] [id number] Univers 08:45:00 08:45:00 [facility] 2019-08-05 2019-08-05 Orders Doctor TERENCE 1.2.840.114 [id number] 00:00:00 00:00:00 Only Unassigned, LAK[place]INDER [id number] [place] [facility] 4.2.7.2.686 [id number] 2019-07-16 2019-07-16 [facility] [id number] 10:00:00 13:45:00 Encounter David Block [id number] [place] 4.2.7.2.686 Surgical [id number] [place] [address] 2019-07-15 2019-07-15 [facility] [id number] Univers 11:00:00 11:00:00 [facility] 2019-07-15 2019-07-15 Nurse Nurse, [facility] .2.840.114 [id number] 10:23:51 10:30:38 Visit General Milroy [id number] Surgery [place] 4.2.7.2.686 Professio [id number] [address] 2019-07-15 2019-07-15 Telephone TERENCE Granado 1.2.840.114 [id number] 00:00:00 00:00:00 David KEANE [id number] [facility] [id number] [id number] 2017-05-16 2017-05-16 Outpatient Andreas Abarca [id number] [facility] 10:18:00 10:18:00 Oren Lott DO, alW orks DO, PA PA 2017-03-09 2017-03-09 Outpatient Andreas Abarca. [id number] eClinic 13:30:00 13:30:00 Oren Esteban DO, a lWorks DO, PA PA Results This patient has no known results.
[2022-04-25 01:27] LABS: Protime INR 1.17
[2022-04-25 01:29] LABS: Absolute Lymphocytes (CBC) 1.3 K/uL (0.7-4.9); Hematocrit 29.7 % (39.6-49.0); Lymphocytes % 25.8 % (15.3-44.8); MCV 89.1 fL (80-100); MPV 8.4 fL (7.6-11.3); RBC Red Blood Cell Count 3.34 M/uL (4.33-5.43)
[2022-04-25 01:43] LABS: Albumin 3.1 g/dL (3.4-5.0); Bilirubin Direct 0.1 mg/dL (0-0.2); Bilirubin Total 0.6 mg/dL (0.2-1.0); Magnesium 2.1 mg/dL (1.6-2.4); Protein, Total 6.8 g/dL (6.4-8.2); Troponin High Sensitivity 12.4 pg/mL (<58.9)
[2022-04-25 02:13] LABS: SARS-COV-2 RT PCR NEGATIVE (NEGATIVE)
--- NOTE | 2022-04-25 02:57 | ER ---
Nurse's Notes [facility] Name: Ángel Haddad Age: 67 yrs Sex: Male : 1955 Arrival Date: 04/25/2022 Time: 00:51 Bed 20 Private MD: Diagnosis: Dyspnea;Unspecified combined systolic (congestive) and diastolic (congestive) heart failure;Chronic atrial fibrillation Presentation: 04/25 01:01 Chief complaint: Patient states: he started feeling short of breath and is having bb difficulty breathing since around 2130 last night. Coronavirus screen: Client presents with at least one sign or symptom that may indicate coronavirus-19. Ebola Screen: No symptoms or risks identified at this time. Initial Sepsis Screen: Does the patient meet any 2 criteria? No. Patient's initial sepsis screen is negative. Does the patient have a suspected source of infection? No. Patient's initial sepsis screen is negative. Risk Assessment: Do you want to hurt yourself or someone else? Patient reports no desire to harm self or others. Onset of symptoms was April 24, 2022. 01:01 Method Of Arrival: Ambulatory 01: Acuity: MARGO 3 bb Triage Assessment: 01:10 Respiratory: Onset: The symptoms/episode began/occurred yesterday, the patient has mild pf1 shortness of breath. Historical: - Allergies: 01:04 apixaban; bb 01:04 CLOPIDOGREL; bb 01:04 tramadol; bb - Home Meds: 01:04 sotalol 80 mg Oral tab 1 tab 2 times per day [Active]; tamsulosin Oral [Active]; bb Sumatriptan Sub-Q [Active]; Baclofen Oral [Active]; ramipril Oral [Active]; thyroid medication [Active]; other unknown meds [Active]; - PMHx: 01:04 Atrial Fib; CVA; kidney failure; Myocardial infarction; Pace maker; bb - Immunization history:: pt has been vaccinated x 5 for Covid . - Social history:: Smoking status: Patient denies any tobacco usage or history of. Screenin:15 [facility] ED Fall Risk Assessment (Adult) History of falling in the last 3 months, pf1 including since admission No falls in past 3 months (0 pts) Confusion or Disorientation No (0 pts) Intoxicated or Sedated No (0 pts) Impaired Gait No (0 pts) Mobility Assist Device Used No (0 pt) Altered Elimination No (0 pt) Score/Fall Risk Level 0 - 2 = Low Risk Oriented to surroundings, Maintained a safe environment, Educated pt \T\ family on fall prevention, incl call for assistance when getting out of bed, Assessed \T\ reinforced patient's understanding of fall precautions, Provided non-skid footwear, Hourly rounding (assess needs \T\ fall precautionary measures) done, Used ambulatory aids as needed (educated on \T\ assisted with), Used gait belt as appropriate. 01:15 Abuse screen: Denies threats or abuse. Nutritional screening: No deficits noted. pf1 Tuberculosis screening: No symptoms or risk factors identified. Assessment: 01:20 Cardiovascular: Rhythm is pf1 01:21 General: Appears in no apparent distress. comfortable, well groomed, well developed, pf1 Behavior is calm, cooperative, appropriate for age, quiet. Neuro: No deficits noted. Level of Consciousness is awake, alert, obeys commands, Oriented to person, place, time, situation. Cardiovascular: Reports shortness of breath. 01:21 GI: No deficits noted. No signs and/or symptoms were reported involving the pf1 gastrointestinal system. Abdomen is flat, non-distended, Bowel sounds present X 4 quads. Abd is soft and non tender X 4 quads. 01:21 Pain: Complains of pain in Patient C/O chronic back of neck arthritis pain of 8. pf1 Cardiovascular: Capillary refill < 3 seconds Patient's skin is warm and dry. Respiratory: Reports shortness of breath at rest on exertion Airway is patent Trachea midline Respiratory effort is even, unlabored, Respiratory pattern is regular, symmetrical, Breath sounds are clear bilaterally. : No deficits noted. No signs and/or symptoms were reported regarding the genitourinary system. EENT: No deficits noted. No signs and/or symptoms were reported regarding the EENT system. Derm: No deficits noted. No signs and/or symptoms reported regarding the dermatologic system. Musculoskeletal: Circulation, motion, and sensation intact. Capillary refill < 3 seconds, Range of motion: intact in all extremities. 02:30 Reassessment: Patient appears in no apparent distress at this time. Patient and/or pf1 family updated on plan of care and expected duration. Pain level reassessed. Patient is alert, oriented x 3, equal unlabored respirations, skin warm/dry/pink. Patient states symptoms have improved. 03:30 Reassessment: Patient appears in no apparent distress at this time. Patient and/or pf1 family updated on plan of care and expected duration. Pain level reassessed. Patient is alert, oriented x 3, equal unlabored respirations, skin warm/dry/pink. Patient states feeling better. Patient states symptoms have improved. 04:30 Reassessment: Patient appears in no apparent distress at this time. Patient and/or pf1 family updated on plan of care and expected duration. Pain level reassessed. Patient sleeping, lights dimmed, call light at BS. 05:16 Reassessment: Patient appears in no apparent distress at this time. patient sleeping.. pf1 07:00 Reassessment: Patient and/or family updated on plan of care and expected duration. Pain ap3 level reassessed. Patient is alert, oriented x 3, equal unlabored respirations, skin warm/dry/pink. 07:31 Reassessment: attempted report to the receiving nurse. was informed she would return my ap3 call for report. 08:15 Reassessment: gave report to receiving nurse. ap3 Vital Signs: 01:01 BP 158 / 96; Pulse 73; Resp 20 S; Temp 98.2(O); Pulse Ox 98% on R/A; Weight 88.45 kg bb (R); Height 6 ft. 2 in. (187.96 cm) (R); Pain 0/10; 02:30 BP 162 / 89; Pulse 73; Resp 19; Pulse Ox 96% on R/A; Pain 8/10; pf1 03:30 BP 158 / 97; Pulse 76; Resp 20; Temp 98; Pulse Ox 95% on R/A; Pain 8/10; pf1 04:30 BP 157 / 91; Pulse 73; Resp 22; Pulse Ox 95% on R/A; Pain 0/10; pf1 07:32 BP 144 / 82; Pulse 70; Pulse Ox 99% on R/A; ap3 01:01 Body Mass Index 25.04 (88.45 kg, 187.96 cm) kristen ED Course: 00:51 Patient arrived in ED. ja2 01:04 Triage completed. bb 01:04 Arm band placed on Patient placed in an exam room, on a stretcher, on pulse oximetry. bb Family accompanied patient. 01:10 Chirag Cueto MD is Attending Physician. meg 01:10 No provider procedures requiring assistance completed. Inserted saline lock: 20 gauge pf1 in right antecubital area, using aseptic technique. Blood collected. 01:12 Tavia agustin, RN is Primary Nurse. pf1 01:13 COVID-19/FLU A+B Sent. pf1 01:13 Basic Metabolic Panel Sent. pf1 01:13 CBC with Diff Sent. pf1 01:13 LFT's Sent. pf1 01:13 Magnesium Sent. pf1 01:13 NT PRO-BNP Sent. pf1 01:13 PT-INR Sent. pf1 01:13 Troponin HS Sent. pf1 01:15 Patient has correct armband on for positive identification. Placed in gown. Bed in low pf1 position. Call light in reach. 01:17 XRAY Chest (1 view) In Process Unspecified. EDMS 02:10 COVID-19/FLU A+B Sent. pf1 02:10 Blood Culture Adult (2) Sent. pf1 02:10 Lactate w/ 2H reflex if indic. Sent. pf1 02:55 Surya Alcazar is Hospitalizing Provider. meg 05:16 Patient admitted, IV remains in place. pf1 Administered Medications: 02:50 Drug: Rocephin (cefTRIAXone) 1 grams Route: IV; Rate: per protocol; Site: right pf1 antecubital; 02:55 Follow up: Response: No adverse reaction; IV Status: Completed infusion; IV Intake: [id number] 03:05 Drug: Lasix (furosemide) 40 mg Route: IVP; Site: right antecubital; pf1 04:00 Follow up: Response: No adverse reaction; Marked relief of symptoms pf1 03:05 Drug: Doxycycline 200 mg Route: PO; pf1 04:00 Follow up: Response: No adverse reaction pf1 Medication: 04:00 VIS not applicable for this client. pf1 Intake: 02:55 IV: 10ml; Total: 10ml. pf1 Outcome: 02:56 Decision to Hospitalize by Provider. meg 05:16 Admitted to ER Hold. Please see [facility] for further documentation. pf1 05:16 Condition: stable pf1 05:16 Instructed on the need for admit, Demonstrated understanding of instructions. 08:28 Patient left the ED. ap3 Signatures: Dispatcher [employer] Chirag Dunham MD MD cha Ballard, Brenda, RN RN bb Angeles Rubin RN RN ap3 Sabra Chaparro Pamala, RN RN pf1
--- NOTE | 2022-04-25 02:57 | EDPHYS ---
Physician Documentation [facility] Name: Ángel Haddad Age: 67 yrs Sex: Male : 1955 Arrival Date: 04/25/2022 Time: 00:51 Bed 20 Private MD: VIDYA Physician Chirag Cueto HPI: 04/25 02:46 This 67 yrs old Male presents to ER via Ambulatory with complaints of meg Breathing Difficulty. 02:46 The patient has shortness of breath with light activity. Onset: The symptoms/episode meg began/occurred 1 day(s) ago. Duration: The symptoms are continuous, and are steadily getting worse. The patient's shortness of breath has no apparent modifying factors. Associated signs and symptoms: The patient has no apparent associated signs or symptoms. Severity of symptoms: At their worst the symptoms were mild moderate in the emergency department the symptoms are unchanged. The patient has not experienced similar symptoms in the past. Historical: - Allergies: 01:04 apixaban; bb 01:04 CLOPIDOGREL; bb 01:04 tramadol; bb - Home Meds: 01:04 sotalol 80 mg Oral tab 1 tab 2 times per day [Active]; tamsulosin Oral [Active]; bb Sumatriptan Sub-Q [Active]; Baclofen Oral [Active]; ramipril Oral [Active]; thyroid medication [Active]; other unknown meds [Active]; - PMHx: 01:04 Atrial Fib; CVA; kidney failure; Myocardial infarction; Pace maker; bb - Immunization history:: pt has been vaccinated x 5 for Covid . - Social history:: Smoking status: Patient denies any tobacco usage or history of. ROS: 02:48 Constitutional: Negative for fever, chills, and weight loss, Eyes: Negative for injury, meg pain, redness, and discharge, ENT: Negative for injury, pain, and discharge, Neck: Negative for injury, pain, and swelling, Cardiovascular: Negative for chest pain, palpitations, and edema, Abdomen/GI: Negative for abdominal pain, nausea, vomiting, diarrhea, and constipation, Back: Negative for injury and pain, : Negative for injury, bleeding, discharge, and swelling, MS/Extremity: Negative for injury and deformity, Skin: Negative for injury, rash, and discoloration, Neuro: Negative for headache, weakness, numbness, tingling, and seizure, Psych: Negative for depression, anxiety, suicide ideation, homicidal ideation, and hallucinations, Endocrine: Negative for neck swelling, polydipsia, polyuria, polyphagia, and marked weight changes, Hematologic/Lymphatic: Negative for swollen nodes, abnormal bleeding, and unusual bruising. 02:48 Respiratory: Positive for cough, shortness of breath, at rest. Exam: 02:48 Constitutional: This is a well developed, well nourished patient who is awake, alert, meg and in no acute distress. Head/Face: Normocephalic, atraumatic. Eyes: Pupils equal round and reactive to light, extra-ocular motions intact. Lids and lashes normal. Conjunctiva and sclera are non-icteric and not injected. Cornea within normal limits. Periorbital areas with no swelling, redness, or edema. ENT: Nares patent. No nasal discharge, no septal abnormalities noted. Tympanic membranes are normal and external auditory canals are clear. Oropharynx with no redness, swelling, or masses, exudates, or evidence of obstruction, uvula midline. Mucous membranes moist. Neck: Trachea midline, no thyromegaly or masses palpated, and no cervical lymphadenopathy. Supple, full range of motion without nuchal rigidity, or vertebral point tenderness. No Meningismus. Chest/axilla: Normal chest wall appearance and motion. Nontender with no deformity. No lesions are appreciated. Cardiovascular: Regular rate and rhythm with a normal S1 and S2. No gallops, murmurs, or rubs. Normal PMI, no JVD. No pulse deficits. Respiratory: Lungs have equal breath sounds bilaterally, clear to auscultation and percussion. No rales, rhonchi or wheezes noted. No increased work of breathing, no retractions or nasal flaring. Abdomen/GI: Soft, non-tender, with normal bowel sounds. No distension or tympany. No guarding or rebound. No evidence of tenderness throughout. Back: No spinal tenderness. No costovertebral tenderness. Full range of motion. Male : Normal genitalia with no discharge or lesions. Skin: Warm, dry with normal turgor. Normal color with no rashes, no lesions, and no evidence of cellulitis. MS/ Extremity: Pulses equal, no cyanosis. Neurovascular intact. Full, normal range of motion. Neuro: Awake and alert, GCS 15, oriented to person, place, time, and situation. Cranial nerves II-XII grossly intact. Motor strength 5/5 in all extremities. Sensory grossly intact. Cerebellar exam normal. Normal gait. Psych: Awake, alert, with orientation to person, place and time. Behavior, mood, and affect are within normal limits. 02:48 ECG was reviewed by the Attending Physician. Vital Signs: 01:01 BP 158 / 96; Pulse 73; Resp 20 S; Temp 98.2(O); Pulse Ox 98% on R/A; Weight 88.45 kg bb (R); Height 6 ft. 2 in. (187.96 cm) (R); Pain 0/10; 02:30 BP 162 / 89; Pulse 73; Resp 19; Pulse Ox 96% on R/A; Pain 8/10; pf1 03:30 BP 158 / 97; Pulse 76; Resp 20; Temp 98; Pulse Ox 95% on R/A; Pain 8/10; pf1 04:30 BP 157 / 91; Pulse 73; Resp 22; Pulse Ox 95% on R/A; Pain 0/10; pf1 07:32 BP 144 / 82; Pulse 70; Pulse Ox 99% on R/A; ap3 01:01 Body Mass Index 25.04 (88.45 kg, 187.96 cm) bb MDM: 01:10 Patient medically screened. meg 02:50 Differential diagnosis: Anemia asthma, Bronchitis CHF exacerbation, Chronic Obstructive meg Pulmonary Disease obstructed airway, bronchitis, flu, URI, pneumonia, pulmonary edema, reactive airway disease, Sepsis. Antibiotic administration: rocephin and doxycycline. Differential Diagnosis: Obstructed Airway Bronchitis Influenza Upper Respiratory Infection Sinusitis Pharyngitis Asthma Exacerbation Viral Syndrome Pneumonia. Immunization status: Pneumococcal vaccine: within last 5 years. Influenza vaccine: within last 5 years. Data reviewed: vital signs, nurses notes, lab test result(s), EKG, radiologic studies, plain films. Consideration of Admission/Observation Patient was admitted/placed on observation. I considered the following discharge prescriptions or medication management in the emergency department Medications were administered in the Emergency Department. See MAR. Test considered but Not performed: Ultrasound no dvt study dine. 04/25 01:01 Order name: Basic Metabolic Panel; Complete Time: 02:08 la1 04/25 01:01 Order name: CBC with Diff; Complete Time: 01:36 04/25 01:01 Order name: LFT's; Complete Time: 02:08 04/25 01:01 Order name: Magnesium; Complete Time: 02:08 04/25 01:01 Order name: NT PRO-BNP; Complete Time: 02:08 04/25 01:01 Order name: PT-INR; Complete Time: 01:36 04/25 01:01 Order name: Troponin HS; Complete Time: 02:08 la04/25 01:01 Order name: XRAY Chest (1 view) 04/25 01:01 Order name: COVID-19/FLU A+B; Complete Time: 02:16 la04/25 01:19 Order name: Blood Culture Adult (2) [facility] 04/25 01:19 Order name: Lactate w/ 2H reflex if indic.; Complete Time: 02:46 [facility] 04/25 05:36 Order name: Troponin High Sensitivity EDMS 04/25 01:01 Order name: EKG; Complete Time: 01:02 04/25 01:01 Order name: Cardiac monitoring; Complete Time: 01:13 04/25 01:01 Order name: EKG - Nurse/Tech; Complete Time: 01:13 04/25 01:01 Order name: IV Saline Lock; Complete Time: 01:13 04/25 01:01 Order name: Labs collected and sent; Complete Time: 01:13 04/25 01:01 Order name: O2 Per Protocol; Complete Time: 01:13 04/25 01:01 Order name: O2 Sat Monitoring; Complete Time: 01:13 EC:48 Rate is 78 beats/min. Rhythm is irregularly irregular. QRS [place] is Normal. [place] interval meg is normal. QRS interval is normal. QT interval is normal. No Q waves. T waves are Normal. Clinical impression: Atrial Fibrillation. Interpreted by me. Reviewed by me. Administered Medications: 02:50 Drug: Rocephin (cefTRIAXone) 1 grams Route: IV; Rate: per protocol; Site: right pf1 antecubital; 02:55 Follow up: Response: No adverse reaction; IV Status: Completed infusion; IV Intake: [id number] 03:05 Drug: Lasix (furosemide) 40 mg Route: IVP; Site: right antecubital; pf1 04:00 Follow up: Response: No adverse reaction; Marked relief of symptoms pf1 03:05 Drug: Doxycycline 200 mg Route: PO; pf1 04:00 Follow up: Response: No adverse reaction pf1 Disposition Summary: 04/25/22 02:56 Hospitalization Ordered Provider: Surya Alcazar cha Condition: Fair meg Problem: new meg Symptoms: have improved meg Bed/Room Type: Standard meg Hospitalization Status: Inpatient Admission(04/25/22 02:58) meg Location: Telemetry/MedSurg (Inpatient)(04/25/22 07:13) ja1 Room Assignment: 424(04/25/22 07:13) ja Diagnosis - Dyspnea meg - Unspecified combined systolic (congestive) and diastolic (congestive) heart failure meg - Chronic atrial fibrillation meg Forms: - Medication Reconciliation Form meg - SBAR form meg Signatures: Dispatcher [employer] EDChirag Tomlisnon MD MD cha Ballard, Brenda RN RN Flo Acosta, PUZZLE ASSEMBLER-C PUZZLE ASSEMBLER-Cla1 Anamaria Carolina RN RN cg Aguilar, Jose RN RN ja1 Tavia agustin RN RN pf1 Corrections: (The following items were deleted from the chart) 02:58 02:56 Observation meg meg 05:16 02:56 Telemetry/MedSurg (Inpatient) meg cg 05:16 02:56 meg cg 07:13 05:16 [facility] ER HOLD cg ja1 07:13 05:16 ERHOLD- cg ja1
[2022-04-25] MEDS ORDERED: FUROSEMIDE 40 MG/4 ML VIAL ONE (02:59)
[2022-04-25] MEDS ORDERED: CEFTRIAXONE 1000 MG/VIAL ONE (02:59)
[2022-04-25] MEDS ORDERED: DOXYCYCLINE 100 MG CAP PO ONE (03:09)
--- NOTE | 2022-04-25 03:16 | P.HP ---
Certification for Inpatient Patient admitted to: Observation With expected LOS: <2 Midnights Patient will require the following post-hospital care: None Practitioner: I am a practitioner with admitting privileges, knowledge of patient current condition, hospital course, and medical plan of care. Services: Services provided to patient in accordance with Admission requirements found in Title 42 Section 412.3 of the Code of Federal Regulations Patient History Date of Service: 04/25/22 Reason for admission: Dyspnea History of Present Illness: 67-year-old male with history of A-fib status post Watchman procedure, CKD, previous CVA, CAD, hypothyroidism presents to the emergency department with dyspnea. He reports onset of shortness of breath beginning this evening, he felt as if he was wheezing prior to arrival. He was evaluated here in the emergency department his labs were significant for creatinine 1.64 GFR 45 BUN 23 BNP 868 hemoglobin 9.6 medic at 29.7 chest x-ray was performed which showed findings suggest an infectious and/or edematous process with associated left pleural effusion. Level to count within the limits, patient afebrile. Patient was started on Rocephin/Doxy given his home medication sotalol. Also given IV Lasix, ED provider wishes to admit under observation for further evaluation and management. Allergies apixaban [From Eliquis] Allergy (Severe, Verified 06/10/21 09:17) Itching/Hives/Rash tramadol Allergy (Severe, Verified 06/10/21 09:17) Nausea/Vomiting clopidogrel [From Plavix] Allergy (Intermediate, Verified 06/10/21 09:17) Itching/Hives/Rash dabigatran etexilate [From Pradaxa] Allergy (Verified 06/10/21 09:17) Hives/Rash rivaroxaban [From Xarelto] Allergy (Verified 06/10/21 09:17) Hives/Rash Adhesives Allergy (Severe, Uncoded 06/10/21 09:17) Rash/Whelps Home Medications: Famotidine [Pepcid] 10 mg PO PCB 06/05/20 Meclizine HCl 12.5 mg PO DAILY MDD 25 06/05/20 Naproxen [Naprosyn*] 220 mg PO PRN 06/05/20 Ramipril [Altace] 10 mg PO DAILY 06/05/20 SUMAtriptan [Sumatriptan] 50 mg PO PRN 06/05/20 Allopurinol 100 mg PO DAILY 06/06/21 Colchicine 0.6 mg PO DAILY 06/06/21 Escitalopram Oxalate 20 mg PO DAILY 06/06/21 Levothyroxine [Synthroid] 88 mcg PO [id number] 06/06/21 Sotalol HCl [Sotalol] 120 mg PO DAILY 06/06/21 Tamsulosin [Flomax] 0.4 mg PO BEDTIME 06/06/21 - Past Medical/Surgical History Diabetic: No -: 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 eye surgery -: heart stents -: Hernia repair -: thyroid surgery -: Nerve re-channeling to R. arm -: apendectomy -: pacemaker Psychosocial/ Personal History: Patient is retired, lives at home with his - Family History Father -: Heart disease, Kidney disease Notes: sacoidosis Mother -: Heart disease Notes: dementia, alzheimers Brother -: Heart disease, Stroke - Social History Smoking Status: Never smoker Alcohol use: No CD- Drugs: No Caffeine use: Yes Place of Residence: Home Review of Systems 10-point ROS is otherwise unremarkable General: Weakness, Malaise Respiratory: Shortness of Breath Physical Examination - Physical Exam General: Alert, In no apparent distress, Oriented x3 HEENT: Atraumatic, PERRLA, Mucous membr. moist/pink, EOMI, Sclerae nonicteric Neck: Supple, 2+ carotid pulse no bruit, No LAD, Without JVD or thyroid abnormality Respiratory: Diminished Cardiovascular: No edema, Regular rate/rhythm, Normal S1 S2 Capillary refill: <2 Seconds Gastrointestinal: Normal bowel sounds, No tenderness Musculoskeletal: No tenderness Integumentary: No rashes Neurological: Normal speech, Normal strength at 5/5 x4 extr, Normal tone, Normal affect - Studies Laboratory Data (last 24 hrs) 04/25/22 01:10: PT 12.9 H, INR 1.17 04/25/22 01:10: WBC 4.80, Hgb 9.6 L, Hct 29.7 L, Plt Count 205 04/25/22 01:10: Sodium 141, Potassium 4.0, BUN 23 H, Creatinine 1.64 H, Glucose 92, Magnesium 2.1, Total Bilirubin 0.6, AST 18, ALT 18, Alkaline Phosphatase 83 Assessment and Plan - Plan Assessment: Dyspnea secondary to acute on chronic diastolic congestive heart failure Concern for possible pneumonia Atrial fibrillation status post Watchman procedure off of anticoagulation CKD History of CAD/CVA Hypothyroidism Plan: Dyspnea secondary to acute on chronic diastolic congestive heart failure Continue IV Lasix, echocardiogram and cardiology consult in place. Concern for possible pneumonia Continue antibiotics Rocephin/doxycycline. Incentive pharmacy ordered. Patient on room air at this time. Atrial fibrillation status post Watchman procedure off of anticoagulation Continue home medications including sotalol. CKD Similar to baseline. Monitor closely. History of CAD/CVA Status post watchman. Last heart cath about 1 year ago. Denies chest pain. Hypothyroidism Continue home medications. DVT PPX: Lovenox Code status: Full Discharge Plan: Home Plan to discharge in: 24 Hours - Advance Directives Does patient have a Living Will: No Does patient have a Durable POA for Healthcare: No - Code Status/Comfort Care Code Status Assessed: Yes (Full code) Critical Care: No Time Spent Managing Pts Care (In Minutes): 70
[2022-04-25] MEDS ORDERED: ONDANSETRON 4 MG/2 ML VIAL IV PRN (03:33)
[2022-04-25 06:22] VITALS: BMI 24.9
[2022-04-25 08:40] VITALS: O2SAT 99
[2022-04-25] MEDS ORDERED: DOXYCYCLINE 100 MG in NA CHLORIDE 0.9% 100 ML IVPB SCH (09:00)
[2022-04-25] MEDS ORDERED: FUROSEMIDE 20 MG/ 2ML VIAL IV SCH (09:00)
[2022-04-25] MEDS ORDERED: ENOXAPARIN 40 MG/0.4 ML SQ SCH (09:00)
[2022-04-25] MEDS ORDERED: CEFTRIAXONE 1,000 MG in NA CHLORIDE 0.9% 50 ML IVPB SCH (09:00)
--- NOTE | 2022-04-25 10:22 | P.DS ---
Admission Date: 04/25/22 Discharge Date: 04/25/22 Disposition: ROUTINE DISCHARGE Discharge Condition: FAIR Reason for Admission: Dyspnea - Problems (1) Acute on chronic diastolic CHF (congestive heart failure) Onset Date: 02/01/18 Status: Acute (2) Atrial fibrillation Onset Date: 03/15/17 Status: Chronic Qualifiers: Atrial fibrillation type: chronic (3) Hypothyroidism Status: Chronic Qualifiers: Hypothyroidism type: unspecified Qualified Code(s): E03.9 - Hypothyroidism, unspecified Brief History of Present Illness: 67-year-old male with history of A-fib status post Watchman procedure, CKD, previous CVA, CAD, hypothyroidism presented to the emergency department with dyspnea. He reported onset of shortness of breath and felt as if he was wheezin g prior to arrival. He was evaluated here in the emergency department his labs were significant for creatinine 1.64 GFR 45 BUN 23 BNP 868 hemoglobin 9.6 medic at 29.7 chest x-ray was performed which showed findings suggest an infectious and/or edematous process with associated left pleural effusion. WBC within the limits, patient afebrile. Patient was started on Rocephin/Doxy. Also given IV Lasix and hospitalist for further management. Hospital Course: Patient was treated for possible pneumonia with Rocephin and doxycycline. He was also treated for possible vascular congestion with IV Lasix. Echocardiogram showed EF of 60-65. Patient respiratory condition quickly improved with treatment. Vitals were stable. He was not hypoxic. He felt he is back to baseline. Patient was discharged with antibiotics and Lasix. Vital Signs/Physical Exam: Temp Pulse Resp BP Pulse Ox 96.8 F 71 18 157/86 H 96 04/25/22 08:42 04/25/22 08:42 04/25/22 08:42 04/25/22 08:42 04/25/22 08:42 General: Alert, Oriented x3 HEENT: Mucous membr. moist/pink Neck: JVD not distended Respiratory: Clear to auscultation bilaterally, Normal air movement Cardiovascular: No edema, Regular rate/rhythm, Normal S1 S2 Gastrointestinal: Normal bowel sounds, Soft and benign, Non-distended Musculoskeletal: No swelling Integumentary: No rashes, No cyanosis Neurological: Normal strength at 5/5 x4 extr Laboratory Data at Discharge: WBC 4.80 K/uL (4.3-10.9) 04/25/22 01:10 Hgb 9.6 g/dL (13.6-17.9) L 04/25/22 01:10 Hct 29.7 % (39.6-49.0) L 04/25/22 01:10 Plt Count 205 K/uL (152-406) 04/25/22 01:10 PT 12.9 SECONDS (9.5-12.5) H 04/25/22 01:10 INR 1.17 04/25/22 01:10 Sodium 141 mmol/L (136-145) 04/25/22 01:10 Potassium 4.0 mmol/L (3.5-5.1) 04/25/22 01:10 BUN 23 mg/dL (7-18) H 04/25/22 01:10 Creatinine 1.64 mg/dL (0.70-1.30) H 04/25/22 01:10 Glucose 92 mg/dL (74-106) 04/25/22 01:10 Magnesium 2.1 mg/dL (1.6-2.4) 04/25/22 01:10 Total Bilirubin 0.6 mg/dL (0.2-1.0) 04/25/22 01:10 AST 18 U/L (15-37) 04/25/22 01:10 ALT 18 U/L (16-61) 04/25/22 01:10 Alkaline Phosphatase 83 U/L (45-117) 04/25/22 01:10 Home Medications: Famotidine [Pepcid] 10 mg PO PCB 06/05/20 Meclizine HCl 12.5 mg PO DAILY MDD 25 06/05/20 Naproxen [Naprosyn*] 220 mg PO PRN 06/05/20 Ramipril [Altace] 10 mg PO DAILY 06/05/20 SUMAtriptan [Sumatriptan] 50 mg PO PRN 06/05/20 Allopurinol 100 mg PO DAILY 06/06/21 Colchicine 0.6 mg PO DAILY 06/06/21 Escitalopram Oxalate 20 mg PO DAILY 06/06/21 Levothyroxine [Synthroid*] 88 mcg PO [id number] 06/06/21 Sotalol HCl [Sotalol] 120 mg PO DAILY 06/06/21 Tamsulosin [Flomax*] 0.4 mg PO BEDTIME 06/06/21 Cefuroxime Axetil [Cefuroxime] 500 mg PO BID #14 tab 04/25/22 Doxycycline Hyclate 100 mg PO BID #14 cap 04/25/22 Furosemide [Lasix] 40 mg PO DAILY #30 tab 04/25/22 New Medications: Cefuroxime Axetil [Cefuroxime] 500 mg PO BID #14 tab Doxycycline Hyclate 100 mg PO BID #14 cap Furosemide [Lasix] 40 mg PO DAILY #30 tab Diet: AHA Activity: Ad lennie Followup: Paula Lr NP [Primary Care Provider] - 1-2 Weeks
[2022-04-25 12:39] VITALS: BP 158/83; TEMP 96.5
--- NOTE | 2022-04-25 14:53 | RAD REPORT ---
EXAM DESCRIPTION: RAD - Chest Single View - 04/25/2022 1:15 am CLINICAL HISTORY: The patient is 67 years old and is Male; DYSPNEA TECHNIQUE: Frontal view of the chest. COMPARISON: No relevant prior studies available. FINDINGS: LUNGS: There are low lung volumes. Extensive groundglass opacities are noted throughout the lungs specifically in the lower lobes. PLEURAL SPACE: A left pleural effusion is suggested. No pneumothorax. HEART: Unremarkable. No cardiomegaly. MEDIASTINUM: Unremarkable. BONES/JOINTS: Unremarkable. VASCULATURE: Atherosclerosis of the aorta is present. TUBES, LINES AND DEVICES: A left-sided pacemaker is present. UPPER ABDOMEN: Unremarkable as visualized. IMPRESSION: Findings suggest an infectious and/or edematous process with associated left pleural eff usion. Electronically signed by: Christina Hodge MD 04/25/2022 1:52 AM MANAGER DATABASE ADMINISTRATION Due to temporary technical issues with the PACS/Fluency reporting system, reports are being signed by the in house radiologists without review as a courtesy to insure prompt reporting. The interpreting radiologist is fully responsible for the content of the report.
--- NOTE | 2022-04-26 06:44 | ECHO ---
HEIGHT: 6 ft 2 in WEIGHT: 194 lb 0 oz DATE OF STUDY: 04/25/[address]: Flo Darby NP 2-DIMENSIONAL: YES M.MODE: YES DOPPLER: YES COLOR FLOW: YES TDS: PORTABLE: YES DEFINITY: BUBBLE STUDY: DIAGNOSIS: EVALUATE POSSIBLE CONGESTIVE HEART FAILURE CARDIAC HISTORY: CATHERIZATION: YES SURGERY: NO PROSTHETIC VALVE: NO PACEMAKER: YES MEASUREMENTS (cm) DIASTOLIC (NORMALS) SYSTOLIC (NORMALS) IVSd 1.1 (0.6-1.2) LA Diam 4.3 (1.9-4.0) LVEF 68% LVIDd 4.6 (3.5-5.7) LVIDs 2.9 (2.0-3.5) %FS 3.8% LVPWd 1.2 (0.6-1.2) Ao Diam 2.9 (2.0-3.7) 2 DIMENSIONAL ASSESSMENT: RIGHT ATRIUM: NOT WELL SEEN LEFT ATRIUM: ENLARGED RIGHT VENTRICLE: NOT WELL SEEN LEFT VENTRICLE: NORMAL TRICUSPID VALVE: MILD TRICUSPID REGURGITATION MITRAL VALVE: MILD MITRAL REGURGITATION PULMONIC VALVE: NORMAL AORTIC VALVE: MILD AORTIC INSUFFICIENCY PERICARDIAL EFFUSION: NONE AORTIC ROOT: NORMAL LEFT VENTRICULAR WALL MOTION: NORMAL DOPPLER/COLOR FLOW: SEE BELOW COMMENTS: 1. NORMAL LEFT VENTRICULAR EJECTION FRACTION 60-65% 2. NORMAL WALL MOTION 3. LEFT ATRIAL ENLARAGEMENT 4. MILD MITRAL REGURGITATION, TRICUSPID REGURGITATION, AORTIC INSUFFICIENCY TECHNOLOGIST: MANJIT SCHOFIELD
--- NOTE | 2022-04-27 08:04 | EKG ---
Test Date: 2022-04-25 Test Time: 01:05:48 Low Emission Automobile Designer: [place] MEASUREMENT RESULTS: Intervals: Rate: 78 RI: QRSD: 100 QT: 448 QTc: 510 [place]: P: RI: QRS: -29 T: 149 INTERPRETIVE STATEMENTS: Atrial fibrillation Anteroseptal infarct, age undetermined ST & T wave abnormality, consider lateral ischemia or digitalis effect Prolonged QT Abnormal ECG Compared to ECG 06/06/2021 11:33:06 Prolonged QT interval now present Atrial-paced complex(es) or rhythm no longer present Myocardial infarct finding still present ST (T wave) deviation still present Possible ischemia still present Electronically Signed On 04-27-22 07:57:36 TELEPHONE ANSWERER by Erick Valdes
== END 2022-04-25 13:42 | disposition home or self-care (01) ==
LOC: ER 00:48 → ERHOLD 03:07 → 4TH 08:19
PROVIDERS: ADMIT Otolaryngology; ATTEND Internal Medicine
DX: I50.33 Acute on chronic diastolic (congestive) heart failure (principal); I48.91 Unspecified atrial fibrillation; E03.9 Hypothyroidism, unspecified; I25.10 Atherosclerotic heart disease of native coronary artery without angina pectoris; N18.9 Chronic kidney disease, unspecified; Z98.890 Other specified postprocedural states; Z88.6 Allergy status to analgesic agent; Z86.73 Personal history of transient ischemic attack (TIA), and cerebral infarction without residual deficits; Z95.0 Presence of cardiac pacemaker
CPT/HCPCS: 93005; 93306; 87040 ×2; 85025; 80048; 36415; 83735; 85610; 80076; 83605; 84484 ×3; 83880; 0240U; 71045; 97116; 97161; 94010; 96375; 96374; 99285; J1940 ×2; J1650; G0378 ×3

== ENCOUNTER 2023-01-29 07:29 | Day surgery (SDC) | payer OTHER ==
[2023-01-25 15:41] LABS: Absolute Lymphocytes (CBC) 0.9 K/uL (0.7-4.9); Hematocrit 28.8 % (39.6-49.0); Lymphocytes % 19.6 % (15.3-44.8); MCV 81.8 fL (80-100); MPV 7.9 fL (7.6-11.3); Platelets 192 thou/uL (152-406); RBC Red Blood Cell Count 3.52 M/uL (4.33-5.43)
[2023-01-25 16:09] LABS: Potassium 4.3 mEq/L (3.5-5.1)
--- NOTE | 2023-01-25 21:17 | RAD REPORT ---
EXAM DES[facility]25[facility]2023 3:49 pm CLINICAL HISTORY: pre op for surgery. Hypertension COMPARISON: Chest Single View dated 04/25/2022; Chest Single View dated 01/13/2022; Chest Pa And Lat ( 2 Views) dated 12/14/2021; Chest Single View dated 06/04/2020 TECHNIQUE: Portable AP view of the chest. FINDINGS: The lungs are clear. Mild left basilar atelectasis. Left chest wall pacer in place. No pn eumothorax or effusion. The cardiomediastinal contours are unremarkable. IMPRESSION: No acute cardiopulmonary process.
--- NOTE | 2023-01-27 14:12 | EKG ---
Test Date: 2023-01-25 Test Time: 16:24:42 Electoral Officer: NI MEASUREMENT RESULTS: Intervals: Rate: 79 SC: QRSD: 96 QT: 428 QTc: 490 [place]: P: SC: QRS: -29 T: 147 INTERPRETIVE STATEMENTS: Atrial fibrillation Septal infarct, age undetermined Marked ST abnormality, possible inferior subendocardial injury Abnormal ECG Compared to ECG 04/25/2022 01:05:48 Possible ischemia no longer present Prolonged QT interval no longer present Myocardial infarct finding still present ST (T wave) deviation still present Electronically Signed On 01-27-23 14:08:04 TRACK SUPERINTENDENT by Erick Valdes
[2023-01-29] MEDS ORDERED: CEFAZOLIN SODIUM 2 GM/VIAL ONE (07:58)
[2023-01-29] MEDS ORDERED: Ringers Lactate 1,000 ML IV ONE (07:58)
[2023-01-29] MEDS ORDERED: BUPIVACAINE 0.5% PF 10 ML VIAL ONE (08:09)
[2023-01-29] MEDS ORDERED: propofoL 200 MG/20 ML VIAL IV ONE (08:32)
[2023-01-29] MEDS ORDERED: FENTANYL CITR 100 MCG/2 ML ONE (08:32)
[2023-01-29] MEDS ORDERED: dexAMETHasone 10 MG/ML VIAL ONE (08:33)
[2023-01-29] MEDS ORDERED: LIDOCAINE 2% MPF 5 ML VIAL ONE (08:33)
[2023-01-29] MEDS ORDERED: ROCURONIUM 50 MG/5 ML VIAL IV ONE (08:33)
[2023-01-29] MEDS ORDERED: MIDAZOLAM HCL 2 MG/2 ML INJ ONE (08:33)
[2023-01-29] MEDS ORDERED: KETOROLAC 30 MG/ML INJ ONE (08:33)
[2023-01-29] MEDS ORDERED: ONDANSETRON 4 MG/2 ML VIAL ONE (08:34)
[2023-01-29] MEDS ORDERED: Phenylephrine HCl 10 MG/ML 1 ML VIAL ONE (09:13)
[2023-01-29] MEDS ORDERED: NS 0.9% VIAL 10 ML ONE (09:13)
--- NOTE | 2023-01-29 09:33 | P.OP ---
Date of Service: 01/29/23 Preop diagnosis: Right inguinal hernia Postop diagnosis: Right femoral hernia Procedure performed: Exploration of right groin, pair of right femoral hernia Surgeon: Sonido Krishnamurthy MD Software Applications Designer: Kristy BUITRAGO Estimated blood loss: Minimal Specimen: None Findings: Right femoral hernia Anesthesia: General Complications: None Drains: None Fluids and blood products: Nonapplicable Disposition: Recovery room Operative note: Patient brought to the OR and placed in the supine position. General anesthesia begun. Patient prepped and draped in the usual sterile fashion. Marcaine 0.5% infiltrated in a field block fashion in the right groin. 15 blade used to make a 4 cm incision between the pubic tubercle and the anterior iliac superior spine. Subcutaneous tissue divided. Bernabe's fascia identified and divided. Bleeding controlled cautery. Aponeurosis identified and mobilized inferiorly to expose the shelving edge. On the inferior aspect of the aponeurosis, a 1.5 cm hernia defect identified in the fascia with protruding fat. This was reduced back into the peritoneal cavity. On closer examination the femoral vein could be visualized. There patient had a previous right groin surgery following complications from a heart cath procedure. At this time I felt the prudent thing is to repair the hernia with a mesh plug to avoid any potential serious complications. Marlex mesh plug placed in the hernia defect and secured with VersaTack stapler. Complete coverage of the defect accomplished. 3-0 chromic used to reapproximate Bernabe's fascia. 3-0 chromic used to reapproximate subcutaneous tissue. Jo[place] used to close skin. Sterile dressing applied. Patient awakened and taken to recovery room in good general condition. CC:
[2023-01-29] MEDS ORDERED: BUPIVACAINE 0.25% PF 10 ML VIAL ONE (09:35)
[2023-01-29] MEDS ORDERED: HYDROCODONE/APAP 7.5/325 MG TAB PO PRN (09:36)
[2023-01-29] MEDS ORDERED: GLYCOPYRROLATE 0.2 MG/ML SYR ONE (09:50)
[2023-01-29] MEDS ORDERED: NEOSTIGMINE 1 MG/ML -10 ML VIAL ONE (09:51)
[2023-01-29 11:19] VITALS: BP 116/52; TEMP 97.7; O2SAT 95
== END 2023-01-29 11:01 | disposition home or self-care (01) ==
LOC: OR 07:29
PROVIDERS: ATTEND Surgery
PROC: 0YU70JZ Supplement Right Femoral Region with Synthetic Substitute, Open Approach (ICD-10-PCS; principal; 2023-01-29 08:30)
DX: K41.90 Unilateral femoral hernia, without obstruction or gangrene, not specified as recurrent (principal); Z86.73 Personal history of transient ischemic attack (TIA), and cerebral infarction without residual deficits
CPT/HCPCS: 93005; 85025; 80048; 36415; 82947; 71046; 49550; A4216; J2704; J2710; J2371; J2001; J2250; J3010; J1100; J2405; J7120

== ENCOUNTER 2023-02-10 17:59 | Emergency (ER) | payer OTHER ==
--- OUTSIDE RECORDS SUMMARY | 2023-02-10 18:06 | XMS REPORT | Continuity of Care Document ---
:1955 Author Organization [facility] t Address [address] [place] [address] Care Team Providers Name Role Phone VIDA AZAR I. Primary Care Physician Unavailable MAGDALENE FORTE Attending Clinician Unavailable ZAK TESFAYE Attending Clinician Unavailable DAVID GRANADO Attending Clinician Unavailable CARLEY MOSELEY Attending Clinician Unavailable MOUSTAPHA BANKS Attending Clinician Unavailable MOUSTAPHA BANKS ANITHA Attending Clinician Unavailable Only, Ang Db Test Attending Clinician Unavailable Alfonzo Barillas Attending Clinician ALFONZO HERMOSILLO Attending Clinician Unavailable MAGDALENE FORTE Attending Clinician Unavailable Sheila Key RN Attending Clinician Unavailable Doctor Unassigned, [place] Attending Clinician Unavailable DAVID ANDREWS Attending Clinician Unavailable VIDA AZAR I. Attending Clinician Unavailable David Granado MD Attending Clinician Darius Mcdowell CRNA Attending Clinician Jim Thakur MD Attending Clinician Only, Araceli Test Attending Clinician Unavailable Nurse, Adc General Surgery Attending Clinician Unavailable DAVID GRANADO Admitting Clinician Unavailable CARLOS HUTCHINSON Admitting Clinician Unavailable David rGanado MD Admitting Clinician Payers Payer Name Policy Type Policy Number Effective Date Expiration Date S [facility] RENAE [id number] 2020 00:00:00 [employer] [id number] 2019 MEDICARE ADVANTAGE 00:00:00 [facility] [id number] 2019 MEDICARE SUPPLEMENT 00:00:00 [facility] MEDICARE [id number] ADVANTAGE 00:00:00 Problems Condition Condition Condition [...] ed Active Problem 01/10/2018 Andreas Lott Gastro-eso Gastro-es Problem Active 2018-01-10 Memoria phageal ophageal 02:57:21 l reflux reflux [place] disease disease with with esophagiti esophagiti s s Active Problem 01/10/2018 Andreas Lott Malignant [...] Unspecifie Problem Active 2018-01-10 M emoria d Unspecifie 02:57:21 l superficia d Raúl n l injury superficia of right l injury foot, of right initial foot, encounter initial encounter Active Problem 01/10/2018 Andreas Lott [...] fibrillati fibrillati 02:57:21 l on on Active [place] Problem 01/10/2018 Andreas Rima Lott 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 02:57:21 l rosis of rosis of Raúl n wrangell wrangell coronary coronary artery artery Active Problem 01/10/2018 Andreas Abarca Oren Hyperlipid Hyperlipi Problem Active 2018-01-10 Memoria emia demia 02:57:21 l Active [place] Problem 01/10/2018 Andreas Abarca Oren Persistent Persisten Problem Active 2018-01-10 Memoria atrial t atrial 02:57:21 l fibrillati fibrillati He rmann on on Active Problem 01/10/2018 Andreas Rima Lott Left Left Problem Active 2018-01-10 Memor ia ventricula ventricula 02:57:21 l r failure r failure Herm angie Active Problem 01/10/2018 Andreas Lott Sleep Sleep Problem Active 2018-01-10 Memor ia apnea, apnea, 02:57:21 l unspecifie unspecifie He rmann d d Active Problem 01/10/2018 Andreas Lott Obstructiv Obstructi Problem Active 2018-01-10 Memoria e sleep ve sleep 02:57:21 l apnea apnea [place] (adult) (adult) (pediatric (pediatric ) ) Active [...] sleep ed sleep 02:57:21 l apnea apnea [place] Active Problem 01/10/2018 Andreas Lott Hypothyroi Hypothyro Problem Active 2018-01-10 Memoria dism, idism, 02:57:21 l unspecifie unspecifie He rmann d d Active Problem 01/10/2018 Andreas Abarca Oren Idiopathic Idiopathi Diagnosis Active 2018-01-10 Memoria gout, c gout, 02:57:21 l unspecifie unspecifie He rmann d site d site Active Diagnosis 01/10/2018 Andreas Abarca Oren Chronic Chronic Diagnosis Active 2018-01-10 Memoria kidney kidney 02:57:21 l disease, disease, Raúl n stage 3 stage 3 (moderate) (moderate) Active Diagnosis 01/10/2018 Andreas Abarca Oren Other Other Problem Active 2018-01-10 Memor ia generalize generalize 02:57:21 l d ischemic 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 Active Problem 01/10/2018 Adnreas Abarca Oren 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 02:57:21 l mellitus mellitus Raúl n with with hyperglyce hyperglyce prabhu prabhu Active Diagnosis 01/10/2018 Andreas Lott Gouty Gouty Problem Active 2018-01-10 Memor ia arthropath arthropath 02:57:21 l y, y, [place] unspecifie unspecifie d d Active Problem 01/10/2018 Andreas Abarca Oren Unspecifie Unspecifi Problem Active 2018-01-10 Memoria d ed 02:57:21 l essential essential Herm angie hypertensi hypertensi on on Active Problem 01/10/2018 Andreas Abarca Oren Unspecifie Unspecifi Problem Active 2018-01-10 Memoria d ed 02:57:21 l hypothyroi hypothyroi He rmann dism dism Active Problem 01/10/2018 Andreas Rima Lott Diabetes Diabetes Problem Active 2018-01-10 Memoria mellitus mellitus 02:57:21 l without without Shahid mention of mention of complicati complicati on, type on, type II or II or unspecifie unspecifie d type, d type, not stated not stated as as uncontroll uncontroll ed ed Active Problem 01/10/2018 Andreas Rima Lott Hemorrhage Hemorrhag Problem Active 2018-01-10 Memoria of e of 02:57:21 l gastrointe gastrointe He angie stinal stinal tract, tract, unspecifie unspecifie d d Active Problem 01/10/2018 Andreas Lott Low back Low back Problem Active 2018-01-10 Memoria pain pain 02:57:21 l Active [place] Problem 01/10/2018 Andreas Lott Allergies, Adverse Reactions, Alerts Allergy Allergy Status Severity Reaction(s) Onset Inactive Treating Comm ents Source Name Type Date Date Clinician ADHESIVE DRUG Active Other-Cmnt 2020-0 Univ ers TAPE-CLIVE 4-27 ity of ICONES 00:00: [place] 00 [facility] APIXABAN DRUG Active Rash 2020-0 Univers INGREDI 4-27 ity of 00:00: [place] 00 [facility] CLOPIDOG DRUG Active Other-Cmnt 2020-0 Univ ers REL INGREDI 4- ity of 00:00: [place] 00 [facility] DABIGATR DRUG Active Rash 2020-0 Univers AN INGREDI 27 ity of ETEXILAT 00:00: [place] E 00 Medical Branch Adhesive Propensi Active Other - See 2020-0 blisters Univers Tape-Clive ty to comments 07-13 ity of icones adverse 00:00: [place] reaction 00 Medical s Branch Apixaban Propensi Active Rash 2020-0 Univer s ty to 4- ity of adverse 00:00: [place] reaction 00 Medical s Branch Clopidog Propensi Active Other - See 2020-0 rash U nivers rel ty to comments 07-13 ity of adverse 00:00: [place] reaction 00 Medical s Branch Dabigatr Propensi Active Rash 2020-0 Univer s an ty to 4 ity of Etexilat adverse 00:00: [place] e reaction 00 Medical s Branch Tramadol Drug Active Other - See 2020-0 vomit Uni vers Intolera comments 07-13 ity of nce 00:00: [place] 00 [facility] Rivaroxa Propensi Active Rash 2020-0 Univer s ban ty to 27 ity of adverse 00:00: [place] reaction 00 Medical s Branch TRAMADOL DRUG Active Other-Cmnt 2020-0 Univ ers INGREDI 27 ity of 00:00: [place] 00 [facility] RIVAROXA DRUG Active Rash 2020-0 Univers BAN INGREDI 07-13 ity of 00:00: [place] 00 [facility] plavix plavix Active Info Not 2016-03 Memoria Available 2-22 l 00:00: Shahid 00 Social History Social Habit Start Date Stop Date Quantity Comments Source Exposure to 2021-09-20 2021-09-30 Yes University of SARS-CoV-2 00:00:00 18:39:00 [place] [facility] (event[facility] Tobacco use and 2019-07-14 2019-07-14 Smokeless tobacco Un iversity of exposure 00:00:00 00:00:00 non-user [facility] Sex Ass[birth year] At [birth year] Universit y of 00:00:00 00:00:00 [facility] Smoking Status Start Date Stop Date Source Never smoked tobacco [facility] Medications Ordered Filled Start Stop Current Ordering Indication Dosage Frequency Signature Comments Components Source Medication Medication Date Date Medication? Clinician (SIG) Name Name diphenhydrA Yes 50mg Take 50 mg Univers MINE 5-20 by mouth ity of (BENADRYL) 14:15: daily. [place] 25 mg 57 Medical capsule Branch naproxen Yes 220{cap Take 220 Un thong (NAPROSYN 5-20 nevaeh} capsules ity o f ORAL) 14:15: by mouth [place] 57 daily. Medical Branch PROBENECID- Yes 500{cap Take 500 Univers COLCHICINE 5-20 nevaeh} capsules ity of ORAL 14:15: by mouth [place] 57 daily. Medical Branch BACLOFEN Yes 200{cap Take 200 Un thong ORAL 5-20 nevaeh} capsules ity of 14:15: by mouth [place] 57 daily. Medical Branch allopurinoL Yes 100mg Take 100 U nivers 100 mg 5-20 mg by ity of tablet 14:15: mouth [place] 57 daily. Medical Branch escitalopra Yes 20mg Take 20 mg Univers m oxalate 5-20 by mouth ity of (LEXAPRO) 14:15: daily. [place] 20 mg 57 Medical tablet Branch pantoprazol Yes 20mg Take 20 mg Univers e 20 mg EC 5-20 by mouth ity o f tablet 14:15: daily. [place] [address] Medical Branch ramipril 5 Yes 5mg Take 5 mg Un thong mg capsule 5-20 by mouth ity o f 14:15: daily. [place] [address] Medical Branch sotalol Yes 120mg Take 120 [...] o f tablet 14:15: daily. [place] [address] Medical Branch ramipril 5 2020-0 Yes 5mg [...] naproxen 2020-0 Yes 220{cap Take 220 Un tohng (NAPROSYN 5-20 nevaeh} capsules ity o f [...] mouth [place] 57 daily. Medical Branch escitalopra 20200 Yes 20mg Take 20 mg Univers m oxalate 5-20 by mouth ity of (LEXAPRO) 14:15: daily. [place] 20 mg 57 Medical tablet Branch pantoprazol [...] mouth [place] 57 daily. Medical Branch tamsulosin 0 Yes .4mg Take 0.4 Uni vers 0.4 mg 24 5-20 mg by ity of hr capsule 14:15: mouth [place] 57 daily. Medical Branch diphenhydrA 0 Yes 50mg Take 50 mg [...] BACLOFEN 2020-0 Yes 200{cap Take 200 Un tohng ORAL 5-20 nevaeh} capsules ity of 14:15: by mouth [place] 57 daily. Medical Branch allopurinoL 2019-0 Yes 100mg Take 100 U nivers 100 mg 5-20 mg by ity of tablet 14:15: mouth [place] 57 daily. Medical Branch escitalopra 20200 Yes 20mg Take 20 mg Univers m oxalate 5-20 by mouth ity of (LEXAPRO) 14:15: daily. [place] 20 57 Medical tablet Branch pantoprazol 0 Yes 20mg Take 20 mg Univers e 20 mg EC 5-20 by mouth ity o f tablet 14:15: daily. [place] [address] Medical Branch ramipril 5 2020-0 Yes 5mg Take 5 mg Un thong mg capsule 5-20 by mouth ity o f 14:15: daily. [place] [address] Medical Branch sotalol 2019-0 Yes 120mg Take 120 Unive rs (SOTALOL 5-20 mg by ity of AF) 120 mg 14:15: mouth [place] tablet 57 daily. Medical Branch Levothyroxi 0 Yes 137{cap Take 137 Univers ne 137 mcg 5-20 nevaeh} capsules ity of Cap 14:15: by mouth [place] 57 daily. Medical Branch tamsulosin 0 Yes .4mg Take 0.4 Uni vers 0.4 mg 24 5-20 mg by ity of hr capsule 14:15: mouth [place] 57 daily. Medical Branch Eliquis 2017-03 Yes Karoline Rivera not Memori a 0-25 defined l 02:57: Shahid 21 Synthroid 2017-03 Yes Karoline Rivera 1 tablet Memoria 0-25 l 02:57: [place] 21 Nitroglycer 2017-03 Yes Karoline Rivera 1 tablet Memoria in 0-25 under the l 02:57: tongue and [place] 21 allow to dissolve as needed Tamsulosin 2017-03 Yes Karoline Rivera 1 capsule Memoria HCl 0-25 30 minutes l 02:57: after the Shahid 21 same meal each day Baclofen 2017-03 Yes Karoline Rivera TAKE ONE M emoria 0-25 TABLET BY l 02:57: MOUTH [place] 21 EVERY 6 HOURS NEEDED Atorvastati 2017-03 Yes Karoline Rivera TAKE ONE Memoria n Calcium 0-25 TABLET BY l 02:57: MOUTH [place] 21 DAILY Chlorthalid 2017-03 Yes Karoline Rivera 1/2 tab Memoria one 0-25 l 02:57: [place] 21 Levothyroxi 2017-03 Yes Karoline Rivera 1 tablet Memoria ne Sodium 0-25 l 02:57: [place] 21 Flomax 2017-03 Yes Karoline Rivera TAKE ONE Mem oria 0-25 CAPSULE BY l 02:57: MOUTH [place] 21 DAILY 30 MINUTES BEFORE SAME MEAL Escitalopra 2017-03 Yes Karoline Rivera TAKE ONE Memoria m Oxalate 0-25 TABLET BY l 02:57: MOUTH Shahid 21 DAILY Amlodipine 2017-03 Yes Karoline Rivera 1 tablet Memoria Besylate 0-25 l 02:57: Shahid 21 Baclofen 2017-03 Yes Karoline Rivera TAKE ONE M emoria 0-25 TABLET BY l 02:57: MOUTH [place] 21 EVERY SIX HOURS NEEDED Levothyroxi 2017-03 Yes Karoline Rivera TAKE ONE Memoria ne Sodium 0-25 TABLET BY l 02:57: MOUTH Shahid 21 DAILY ON SUNDAY TO SUNDAY AND SUNDAY AND SUNDAY Ramipril 2017-03 Yes Karoline Rivera TAKE ONE M emoria 0-25 CAPSULE BY l 02:57: MOUTH [place] 21 DAILY Pantoprazol 2017-03 Yes Karoline Rivera 1 tablet Memoria e Sodium 0-25 l 02:57: [place] 21 Sotalol HCl 2017-03 Yes Karoline Rivera 1 tablet Memoria 0-25 l 02:57: [place] 21 Cialis 2017-03 Yes Karoline Rivera 1 tablet Mem oria 0-25 l 02:57: [place] 21 Lexapro 2017-03 Yes Karoline Rivera TAKE ONE Me moria 0-25 TABLET BY l 02:57: MOUTH Shahid 21 DAILY Sotalol HCl 2017-03 Yes Karoline Rivera TAKE two Memoria 0-25 TABLET BY l 02:57: MOUTH Shah[place] 21 TWICE A DAY Norvasc 2017-03 Yes Karoline Rivera TAKE ONE Me moria 0-25 TABLET BY l 02:57: MOUTH [place] 21 DAILY Allopurinol 2017-03 Yes Karoline Rivera [...] not Memori a 0-25 defined l 02:57: [place] 21 Synthroid 2017-03 Yes Karoline Rivera 1 tablet Memoria 0-25 l 02:57: Shah[place] 21 Nitroglycer 2017-03 Yes Karoline Rivera 1 tablet Memoria in 0-25 under the l 02:57: tongue and Shahid 21 allow to dissolve as needed Tamsulosin 2017-03 Yes Karoline Rivera 1 capsule Memoria HCl 0-25 30 minutes l 02:57: after the [place] 21 same meal each day Baclofen 2017-03 Yes Karoline Rivera TAKE ONE M emoria 0-25 TABLET BY l 02:57: MOUTH [place] 21 EVERY 6 HOURS NEEDED Atorvastati 2017-03 Yes Karoline Rivera TAKE ONE Memoria n Calcium 0-25 TABLET BY l 02:57: MOUTH [place] 21 DAILY Chlorthalid 2017-03 Yes Karoline Rivera 1/2 tab Memoria one 0-25 l 02:57: Shah[place] 21 Levothyroxi 2017-03 Yes Karoline Rivera 1 tablet Memoria ne Sodium 0-25 l 02:57: Shah[place] 21 Flomax 2017-03 Yes Karoline Rivera TAKE ONE Mem oria 0-25 CAPSULE BY l 02:57: MOUTH [place] 21 DAILY 30 MINUTES BEFORE SAME MEAL Escitalopra 2017-03 Yes Karoline Rivera TAKE ONE Memoria m Oxalate 0-25 TABLET BY l 02:57: MOUTH [place] 21 DAILY Amlodipine 2017-03 Yes Karoline Rivera 1 tablet Memoria Besylate 0-25 l 02:57: [place] 21 Baclofen 2017-03 Yes Karoline Rivera TAKE ONE M emoria 0-25 TABLET BY l 02:57: MOUTH Shahid 21 EVERY SIX HOURS NEEDED Levothyroxi 2017-03 Yes Karoline Rivera TAKE ONE Memoria ne Sodium 0-25 TABLET BY l 02:57: MOUTH [place] 21 DAILY ON SUNDAY TO SUNDAY AND SUNDAY AND SUNDAY Ramipril 2017-03 Yes Karoline Rivera TAKE ONE M emoria 0-25 CAPSULE BY l 02:57: MOUTH Shah[place] 21 DAILY Pantoprazol 2017-03 Yes Karoline Rivera 1 tablet Memoria e Sodium 0-25 l 02:57: [place] 21 Sotalol HCl 2017-03 Yes Karoline Rivera 1 tablet Memoria 0-25 l 02:57: [place] 21 Cialis 2017-03 Yes Karoline Rivera 1 [...] moria 0-25 TABLET BY l 02:57: MOUTH [place] 21 DAILY Allopurinol 2017-03 Yes Karoline Rivera 1 tablet Memoria 0-25 l 02:57: [place] 21 Protonix 2017-03 Yes Karoline Rivera TAKE ONE M emoria 0-25 TABLET BY l 02:57: MOUTH ONE Shahid 21 TIME DAILY Ramipril 2017-03 Yes Karoline Rivera TAKE ONE M emoria 0-25 CAPSULE BY l 02:57: MOUTH Shah[place] 21 DAILY Gabapentin 2017-03 Yes Karoline Rivera 1 capsule Memoria 0-25 l 02:57: [place] 21 Eliquis 2017-03 Yes Karoline Rivera not Memori a 0-25 defined l 02:57: [place] 21 Synthroid 2017-03 Yes Karoline Rivera 1 tablet Memoria 0-25 l 02:57: [place] 21 Nitroglycer 2017-03 Yes Karoline Rivera 1 [...] 1/2 tab Memoria one 0-25 l 02:57: [place] 21 Levothyroxi 2017-03 Yes Karoline Rivera 1 tablet Memoria ne Sodium 0-25 l 02:57: Shah[place] 21 Flomax 2017-03 Yes Karoline Rivera TAKE ONE Mem oria 0-25 CAPSULE BY l 02:57: MOUTH [place] 21 DAILY 30 MINUTES BEFORE SAME MEAL Escitalopra 2017-03 Yes Karoline Rivera TAKE ONE Memoria m Oxalate 0-25 TABLET BY l 02:57: MOUTH [place] 21 DAILY Amlodipine 2017-03 Yes Karoline Rivera [...] tablet Memoria e Sodium 0-25 l 02:57: [place] 21 Sotalol HCl 2017-03 Yes Karoline Rivera [...] emoria 0-25 CAPSULE BY l 02:57: MOUTH [place] 21 DAILY Gabapentin 2017-03 Yes Karoline Rivera 1 capsule Memoria 0-25 l 02:57: [place] 21 Eliquis 2017-03 Yes Karoline Rivera not Memori a 0-25 defined l 02:57: [place] 21 Synthroid 2017-03 Yes Karoline Rivera 1 tablet Memoria 0-25 l 02:57: [place] 21 Nitroglycer 2017-03 Yes Karoline Rivera 1 tablet Memoria in 0-25 under the l 02:57: tongue and Shah[place] 21 allow to dissolve as needed Tamsulosin 2017-03 Yes Karoline Rivera 1 capsule Memoria HCl 0-25 30 minutes l 02:57: after the [place] 21 same meal each day Baclofen 2017-03 Yes Karoline Rivera TAKE ONE M emoria 0-25 TABLET BY l 02:57: MOUTH [place] 21 EVERY 6 HOURS NEEDED Atorvastati 2017-03 Yes Karoline Rivera TAKE ONE Memoria n Calcium 0-25 TABLET BY l 02:57: MOUTH [place] 21 DAILY Chlorthalid 2017-03 Yes Karoline Rivera 1/2 tab Memoria one 0-25 l 02:57: [place] 21 Levothyroxi 2017-03 Yes Karoline Rivera 1 tablet Memoria ne Sodium 0-25 l 02:57: [place] 21 Escitalopra 2017-03 Yes Karoline Rivera TAKE [...] Sodium 0-25 TABLET BY l 02:57: MOUTH [place] 21 DAILY ON SUNDAY TO SUNDAY AND SUNDAY AND SUNDAY Ramipril 2017-03 Yes Karoline Rivera TAKE ONE M emoria 0-25 CAPSULE BY l 02:57: MOUTH [place] 21 DAILY Pantoprazol 2017-03 Yes Karoline Rivera 1 tablet Memoria e Sodium 0-25 l 02:57: [place] 21 Sotalol HCl 2017-03 Yes Karoline Rivera 1 tablet Memoria 0-25 l 02:57: [place] 21 Cialis 2017-03 Yes Karoline Rivera 1 tablet Mem oria 0-25 l 02:57: [place] 21 Lexapro 2017-03 Yes Karoline Rivera TAKE ONE Me moria 0-25 TABLET BY l 02:57: MOUTH [place] 21 DAILY Sotalol HCl 2017-03 Yes Karoline Rivera TAKE two Memoria 0-25 TABLET BY l 02:57: MOUTH [place] 21 TWICE A DAY Norvasc 2017-03 Yes Karoline Rivera TAKE ONE Me moria 0-25 TABLET BY l 02:57: MOUTH [place] 21 DAILY Allopurinol 2017-03 Yes Karoline Rivera 1 tablet Memoria 0-25 l 02:57: [place] 21 Protonix 2017-03 Yes Karoline Rivera TAKE ONE M emoria 0-25 TABLET BY l 02:57: MOUTH ONE [place] 21 TIME DAILY Ramipril 2017-03 Yes Karoline Rivera TAKE ONE M emoria 0-25 CAPSULE BY l 02:57: MOUTH [place] 21 DAILY Gabapentin 2017-03 Yes Karoline Rivera 1 capsule Memoria 0-25 l 02:57: [place] 21 Eliquis 2017-03 Yes Karoline Rivera not Memori a 0-25 defined l 02:57: [place] 21 Synthroid 2017-03 Yes Karoline Rivera 1 tablet Memoria 0-25 l 02:57: [place] 21 Nitroglycer 2017-03 Yes Karoline Rivera 1 tablet Memoria in 0-25 under the l 02:57: tongue and Shahid 21 allow to dissolve as needed Tamsulosin 2017-03 Yes Karoline Rivera 1 capsule Memoria HCl 0-25 30 minutes l 02:57: after the [place] 21 same meal each day Baclofen 2017-03 [...] tablet Memoria ne Sodium 0-25 l 02:57: [place] 21 Flomax 2017-03 Yes Karoline Rivera TAKE ONE Mem oria 0-25 CAPSULE BY l 02:57: MOUTH Shahid 21 DAILY 30 MINUTES BEFORE SAME MEAL Flomax 2017-03 Yes Karoline Rivera TAKE ONE [...] emoria 0-25 TABLET BY l 02:57: MOUTH [place] 21 EVERY SIX HOURS NEEDED Levothyroxi 2017-03 [...] Rivera 1 tablet Memoria 0-25 l 02:57: [place] 21 Cialis 2017-03 Yes Karoline Rivera 1 tablet Mem oria 0-25 l 02:57: Shah[place] 21 Lexapro 2017-03 Yes Karoline Rivera TAKE ONE Me moria 0-25 TABLET BY l 02:57: MOUTH [place] 21 DAILY Sotalol HCl 2017-03 Yes Karoline Rivera TAKE two Memoria 0-25 TABLET BY l 02:57: MOUTH [place] 21 TWICE A DAY Norvasc 2017-03 Yes Karoline Rivera TAKE ONE Me moria 0-25 TABLET BY l 02:57: MOUTH [place] 21 DAILY Allopurinol 2017-03 Yes Karoline Rivera 1 tablet Memoria 0-25 l 02:57: [place] 21 Protonix 2017-03 Yes Karoline Rivera TAKE ONE M emoria 0-25 TABLET BY l 02:57: MOUTH ONE Shahid 21 TIME DAILY Ramipril 2017-03 Yes Karoline Rivera TAKE ONE M emoria 0-25 CAPSULE BY l 02:57: MOUTH [place] 21 DAILY Gabapentin 2017-03 Yes Karoline Rivera 1 capsule Memoria 0-25 l 02:57: Shah[place] 21 Allopurinol 2018-0 Yes Karoline Rivera TAKE ONE Memoria 6-20 TABLET BY l 00:00: MOUTH Shah[place] 00 DAILY Allopurinol 2018-0 Yes Karoline Rivera TAKE ONE Memoria 6-20 TABLET BY l 00:00: MOUTH Shah[place] 00 DAILY Allopurinol 2018-0 Yes Karoline Rivera TAKE ONE Memoria 6-20 TABLET BY l 00:00: MOUTH [place] 00 DAILY Allopurinol 2018-0 Yes Karoline Rivera TAKE ONE Memoria 6-20 TABLET BY l 00:00: MOUTH [place] 00 DAILY Allopurinol 2018-0 Yes Karoline Rivera TAKE ONE Memoria 6-20 TABLET BY l 00:00: MOUTH [place] DAILY Synthroid 2015-03 Yes Karoline Rivera 1 tablet Memoria 0-27 l 00:00: [place] 00 Synthroid 2015-03 Yes Karoline Rivera 1 tablet Memoria 0-27 l 00:00: [place] 00 Synthroid 2015-03 Yes Karoline Rivera 1 tablet Memoria 0-27 l 00:00: [place] 00 Synthroid 2015-03 Yes Karoline Rivera 1 tablet Memoria 0-27 l 00:00: [place] 00 Synthroid 2015-03 Yes Karoline Rivera 1 tablet Memoria 0-27 l 00:00: [place] Summit Yes Karoline Rivera 1 tablet [place]a yelitza 8-28 as needed l 00:00: [place] 00 Summit Yes Karoline Rivera 1 tablet [place] yelitza 8-28 as needed l 00:00: Shah[place] 00 Summit Yes Karoline Rivera 1 tablet [place] yelitza 8-28 as needed l 00:00: [place] 00 Summit Yes Karoline Rivera 1 tablet [place] yelitza 8-28 as needed l 00:00: Shahid 00 Summit Yes Karoline Rivera 1 tablet [place] yelitza 8-28 as needed l 00:00: [place] 00 Cholestyram Yes Karoline Rivera 1 packet Memoria ine 7-22 mixed with l 00:00: water or Shahid 00 non-carbon ated drink Cholestyram Yes Karoline Rivera 1 packet Memoria ine 7-22 mixed with l 00:00: water or [place] 00 non-carbon ated drink Cholestyram Yes Karoline Rivera 1 packet Memoria ine 7-22 mixed with l 00:00: water or [place] 00 non-carbon ated drink Cholestyram Yes Karoline Rivera 1 packet Memoria ine 7-22 mixed with l 00:00: water or [place] 00 non-carbon ated drink Cholestyram Yes Karoline Rivera 1 packet Memoria ine 7-22 mixed with l 00:00: water or Shahid non-carbon ated drink Clonazepam Yes Karoline Rivera 1 tablet Memoria 6-15 l 00:00: [place] 00 Clonazepam Yes Karoline Rivera 1 tablet Memoria 6-15 l 00:00: [place] 00 Clonazepam Yes Karoline Rivera 1 tablet Memoria 6-15 l 00:00: [place] 00 Clonazepam Yes Karoline Rivera 1 tablet Memoria 6-15 l 00:00: [place] 00 Clonazepam Yes Karoline Rivera 1 tablet Memoria 6-15 l 00:00: [place] Clonidine 2013-0 Yes Karoline Rivera 1 tablet Memoria HCl 9-08 l 00:00: [place] 00 Clonidine 2014-0 Yes Karoline Rivera 1 tablet Memoria HCl 9-08 l 00:00: [place] 00 Clonidine 2013-0 Yes Karoline Rivera 1 tablet Memoria HCl 9-08 l 00:00: [place] 00 Clonidine 2013-0 Yes Karoline Rivera 1 tablet Memoria HCl 9-08 l 00:00: [place] 00 Clonidine 2013-0 Yes Karoline Rivera 1 tablet Memoria HCl 9-08 l 00:00: [place] 00 Vital Signs Vital Name Observation Time Observation Value Comments Source Weight 2017-03-09 18:30:00 [facility] Height 2017-03-09 18:30:00 [facility] [place] Respitory Rate 2017-03-09 18:30:00 Memori al [place] Heart Rate 2017-03-09 18:30:00 [facility] [place] Diastolic (mm Hg) 2017-03-09 18:30:00 Mem orial [place] Systolic (mm Hg) 2017-03-09 18:30:00 Beka rial Shah[place] Temperature Oral (F) 2017-03-09 18:30:00 97.4 F [facility] Procedures Procedure Date / Time Performed Performing Clinician [facility] e NOTICE OF BILLING 2021-04-28 21:54:19 Doctor Unassigned, No [facility] PRACTICES FOR MEDICARE Name Medical [facility] [place] PATIENTS ASSIGNMENT OF BENEFITS 2021-04-28 21:54:02 Doctor Unassigned, No [facility] Name Medical Branch Encounters Start End Encounter Admission Attending Care Care Encounter Source Date/Time Date/Time Type Type Clinicians Facility Department ID 2023-02-10 Outpatient [id number] Memoria 18:04:55 [id number] Shahid [id number] 2023-01-06 Outpatient [id number] Memoria 09:30:42 [id number] Shahid [id number] 2022-10-13 Outpatient [facility] [id number] [place] 13:53:50 [id number] [facility] 2022-10-01 Outpatient [facility] [id number] [place] 19:18:27 [id number] [facility] 2022-09-29 Outpatient [facility] [id number] [place] 02:44:20 [id number] [facility] 2022-09-13 Outpatient [facility] [id number] [place] 10:24:37 [id number] [facility] 2022-09-04 Outpatient [facility] [id number] [place] 16:20:31 [id number] [facility] 2022-08-15 Outpatient [facility] [facility] [id number] [place] 11:40:55 [id number] [facility] 2022-07-20 Outpatient [facility] [id number] [place] 15:42:29 [id number] [facility] 2022-06-20 Outpatient [facility] [id number] [place] 13:41:58 [id number] [facility] 2022-04-25 Outpatient [id number] Memoria 00:52:04 [id number] Shahid [id number] 2022-04-11 Outpatient [facility] [id number] [place] 12:43:29 [id number] [facility] 2022-04-05 Outpatient [facility] [id number] [place] 11:39:25 [id number] [facility] 2022-01-13 Outpatient [id number] Memoria 15:43:12 [id number] Shahid [id number] 2021-12-11 Outpatient [facility] [id number] [place] 08:39:01 [id number] [facility] 2021-09-13 [facility] [id number] [place] 13:01:37 MAGDALENE [id number] [facility] 2021-08-23 Outpatient [facility] [id number] [place] 09:19:23 [id number] [facility] 2021-06-14 Outpatient JESSICAENEIDA [facility] [id number] [place] 10:21:53 ZAK [id number] [facility] 2021-06-11 Outpatient [facility] [id number] [place] 10:00:13 [facility] 2021-05-17 Outpatient BRIEN [facility] [id number] [place] 14:54:16 [facility] 2021-04-28 Outpatient BRIEN [facility] [id number] [place] 16:42:22 [facility] 2021-04-18 Outpatient [id number] Memoria 22:57:46 [id number] [place] [id number] 2021-04-13 Outpatient BRIEN [facility] [id number] [place] 11:50:38 [facility] 2021-03-01 Outpatient [facility] [id number] [place] 11:36:41 [facility] 2021-03-01 Outpatient REANNA [facility] [id number] [place] 09:47:40 [facility] 2021-02-25 Outpatient BRIEN [facility] [id number] [place] 10:48:59 [facility] 2021-02-18 Outpatient REANNA [facility] [id number] [place] 10:34:54 [facility] 2021-01-13 Outpatient Dima GRANADO [facility] ALEE [id number] Univers 19:20:35 [facility] 2021-01-13 Outpatient Dima GRANADO [facility] [id number] Univers 19:20:35 DAVID [facility] 2021-01-12 Outpatient REANNA [facility] [id number] [place] 14:58:16 [facility] 2023-04-18 2023-04-18 Outpatient REANNA [facility] [id number] [place] 10:45:00 10:45:00 [facility] 2023-01-01 2023-01-01 Outpatient LORELEI [facility] [id number] [place] 16:00:00 16:00:00 [facility] 2022-12-01 2022-12-01 Outpatient MOUSTAPHA BANKS [facility] [id number] [place] 09:45:00 10:37:44 [facility] 2022-11-24 2022-11-24 Outpatient MOUSTAPHA BANKS [facility] [id number] [facility] 05:56:00 23:59:00 2022-11-15 2022-11-15 Outpatient MOUSTAPHA BANKS [facility] [id number] [place] 10:15:00 10:15:00 [facility] 2022-11-03 2022-11-03 Outpatient MOUSTAPHA BANKS [facility] [id number] [place] 09:30:00 09:30:00 [facility] 2022-10-26 2022-10-26 Outpatient MOUSTAPHA BANKS [facility] [id number] [place] 08:00:00 08:00:00 [facility] 2022-10-18 2022-10-18 Outpatient MOUSTAPHA BANKS [facility] [id number] [place] 11:15:00 11:46:27 [facility] 2022-09-13 2022-09-13 Outpatient REANNA, [facility] [id number] [place] 10:15:00 11:27:45 [facility] 2022-09-05 2022-09-05 Outpatient REANNA [facility] [id number] [place] 14:30:00 14:30:00 [facility] 2022-08-28 2022-08-28 Outpatient MOUSTAPHA BANKS [facility] [id number] [place] 10:45:00 11:39:21 [facility] 2022-04-11 2022-04-11 Outpatient REANNA [facility] [id number] [place] 13:00:00 13:42:00 [facility] 2021-09-30 2021-09-30 Laboratory Only, Ang Db Test [facility] 1.2.8 40.114 [id number] Univers 18:45:00 19:00:00 Only Wilbarron [facility] 350.1.13.10 ity of [place] 4.2.7.2.686 Darian as ANDRE?BLEA [id number] [address] MEDICAL OFFICE [facility] 2021-09-30 2021-09-30 Outpatient R MARQUESJosie [facility] [id number] Univers 18:45:00 18:45:00 ALFONZO ity [facility] 2021-05-02 2021-05-02 Outpatient REANNA, [facility] [id number] [facility] 08:15:00 15:30:00 MAGDALENE 2021-04-29 2021-04-29 Letter TERENCE Key 1.2.840.114 [id number] Univers 00:00:00 00:00:00 (Out) Sheila T LAKHWINDER 350.1.13.10 it y of HOSPITAL 4.2.7.2.686 Darian as [id number] [facility] [address] [place] 2021-04-28 2021-04-28 Laboratory Only, Ang Db Test [facility] 1.2.8 40.114 [id number] Univers 16:00:00 16:15:00 [facility] 350.1.13.10 ity of [place] 4.2.7.2.686 Darian as ANDRE?BLEA [id number] [address] MEDICAL OFFICE [facility] 2021-04-28 2021-04-28 Outpatient R VINNIE [facility] [id number] Univers 16:00:00 16:00:00 ALFONZO [facility] 2021-04-28 2021-04-28 Orders Doctor PRATT 1.2.840.114 [id number] Univers 00:00:00 00:00:00 Only Unassigned, LAKHWINDER 350.1.13.10 ity of [place] [facility] 4.2.7.2.686 Darian as [id number] [facility] [address] 2021-04-28 2021-04-28 Letter Doctor PRATT 1.2.840.114 [id number] Univers 00:00:00 00:00:00 (Out) Unassigned, LAKHWINDER 350.1.13.10 ity of [place] [facility] 4.2.7.2.686 Darian as [id number] [facility] [address] 2020-10-10 2020-10-11 Emergency E JULIANA, [facility] [id number] [facility] 18:02:00 05:39:00 DAVID 2019-11-12 2019-11-12 Outpatient DANGELO DOE [facility] [id number] 00:00:00 00:00:00 VIDA Rickeyuri miramontes 2019-08-06 2019-08-06 [facility] [id number] 11:31:28 14:15:00 Encounter David Block 350.1.13.10 [place] 4.2.7.2.686 Surgical [id number] [place] [id number] 2019-08-06 2019-08-06 Anesthesia Darius Mcdowell [facility] 1.2.840.11 [id number] 12:50:00 13:19:00 Jim Thakur 350.1.13.10 [place] 4.2.7.2.686 Surgical [id number] [place] 020 2019-08-05 2019-08-05 Laboratory Only, [facility] 1.2.840.114 [id number] 09:04:50 09:19:50 Only Test Mckayla 350.1.13.10 [place] 4.2.7.2.686 Professio [id number] [address] 2019-08-05 2019-08-05 [facility] [id number] [facility] 08:45:00 08:45:00 [facility] 2019-08-05 2019-08-05 Orders Doctor TERENCE 1.2.840.114 [id number] 00:00:00 00:00:00 Only UnassignedLAKHWINDER 350.1.13.10 [place] [facility] 4.2.7.2.686 [id number] 2019-07-16 2019-07-16 [facility] [id number] 10:00:00 13:45:00 Encounter David Block 350.1.13.10 [place] 4.2.7.2.686 Surgical [id number] [place] [address] 2019-07-15 2019-07-15 [facility] [id number] [facility] 11:00:00 11:00:00 DAVID [facility] 2019-07-15 2019-07-15 Nurse Nurse, [facility] 1.2.840.114 [id number] 10:23:51 10:30:38 Visit General [place] 350.1.13.10 [place] 4.2.7.2.686 Navin [id number] [address] 2019-07-15 2019-07-15 Telephone TERENCE Granado 1.2.840.114 [id number] 00:00:00 00:00:00 David KEANE 350.1.13.10 [facility] 4.2.7.2.686 [id number] 2017-05-16 2017-05-16 Outpatient Andreas Abarca [id number] [facility]inic 10:18:00 10:18:00 Oren Lott DO, alW orks DO, PA PA 2017-03-09 2017-03-09 Outpatient Andreas Abarca. [id number] [facility]inic 13:30:00 13:30:00 Oren Esteban DO, a lWorks DO, PA PA Results This patient has no known results.
--- NOTE | 2023-02-10 19:02 | RAD REPORT ---
EXAM DESCRIPTION: CT - Pelvis Wo Cont - 02/10/2023 6:38 pm CLINICAL HISTORY: evaluate mass in right groin Pain and swelling COMPARISON: Pelvis Wo Cont dated 01/15/2023 TECHNIQUE: All CT scans are performed using dose optimization technique as appropriate and may inclu de automated exposure control or mA/KV adjustment according to patient size. FINDINGS: Hypodense collection is present in the right inguinal region superficial to right inguinal clips measuring 7.0 x 5.0 cm. This collection is seen to indicate and extending inferiorly lateral t o the right inguinal canal and along the right perineum soft tissues anteriorly were it has a more ob long shape and measures 5.2 x 2.4 cm. Differential considerations would include lymphocele, seroma an d abscess. There appears to be a small communication between this collection and the skin surface (im age 82/168). The right groin skin subcutaneous fat is thickened and reticulated. A few small air bubb les anterior to the collection inferiorly in the right inguinal canal. No intrapelvic extension of th is collection seen. No increased density seen within the collection to suggest blood product. Mild lumbar degenerative changes. IMPRESSION: Hypodense large collection in the right inguinal region extending inferiorly to the ante rior right perineum as detailed. There is also evidence of a small fistulous connection to the skin s urface. Based on imaging, the sterility of the collection is indeterminate. Differential consideratio ns would include, postoperative seroma, lymphocele or abscess. No extension of this finding into the pelvic cavity seen.
[2023-02-10 19:36] LABS: Absolute Lymphocytes (CBC) 0.9 K/uL (0.7-4.9); Hematocrit 26.9 % (39.6-49.0); MCV 81.8 fL (80-100); MPV 7.6 fL (7.6-11.3); Platelets 235 thou/uL (152-406); RBC Red Blood Cell Count 3.29 M/uL (4.33-5.43)
[2023-02-10 19:48] LABS: Potassium 4.3 mEq/L (3.5-5.1)
--- NOTE | 2023-02-10 20:07 | ER ---
Nurse's Notes [facility] Name: Ángel Haddad Age: 68 yrs Sex: Male : 1955 Arrival Date: 02/10/2023 Time: 17:59 Bed 11 Private MD: Diagnosis: Hypodense fluid collection right groin Presentation: 02/10 18:06 Chief complaint: Patient states: had surgery on right groin a week ago, removed scar ko1 tissue and placed dajuan, now the site is hard, swollen and warm. Coronavirus screen: At this time, the client does not indicate any symptoms associated with coronavirus-19. Ebola Screen: No symptoms or risks identified at this time. Initial Sepsis Screen: Does the patient meet any 2 criteria? No. Patient's initial sepsis screen is negative. Does the patient have a suspected source of infection? No. Patient's initial sepsis screen is negative. Risk Assessment: Do you want to hurt yourself or someone else? Patient reports no desire to harm self or others. Onset of symptoms is unknown. 18:06 Method Of Arrival: Ambulatory ko1 18:06 Acuity: MARGO 3 ko1 Triage Assessment: 18:10 General: Appears in no apparent distress. uncomfortable, Behavior is calm, cooperative, ko1 appropriate for age. Pain: Complains of pain in right inguinal area. Historical: - Allergies: 18:10 apixaban; ko1 18:10 CLOPIDOGREL; ko1 18:10 tramadol; ko1 - PMHx: 18:10 Atrial Fib; CVA; kidney failure; Myocardial infarction; Pace maker; ko1 - Immunization history:: Adult Immunizations up to date. - Social history:: Smoking status: Patient denies any tobacco usage or history of. Screenin:20 [facility] ED Fall Risk Assessment (Adult) History of falling in the last 3 months, ha1 including since admission No falls in past 3 months (0 pts) Confusion or Disorientation No (0 pts) Intoxicated or Sedated No (0 pts) Impaired Gait Yes (1 pt) Mobility Assist Device Used Yes (1 pt) Altered Elimination No (0 pt) Score/Fall Risk Level 3 or more points = High Risk Oriented to surroundings, Maintained a safe environment, Educated pt \T\ family on fall prevention, incl call for assistance when getting out of bed, Hourly rounding (assess needs \T\ fall precautionary measures) done. Abuse screen: Denies threats or abuse. Denies injuries from another. Nutritional screening: No deficits noted. Tuberculosis screening: No symptoms or risk factors identified. Assessment: 19:20 General: Appears comfortable, Behavior is calm, cooperative. Pain: Complains of pain in ha1 right inguinal area Pain does not radiate. Pain currently is 8 out of 10 on a pain scale. Quality of pain is described as crampy. Neuro: Level of Consciousness is awake, alert, obeys commands, Oriented to person, place, time, situation. Cardiovascular: Patient's skin is warm and dry. Respiratory: Airway is patent Respiratory effort is even, unlabored, Respiratory pattern is regular, symmetrical. GI: Abdomen is round Bowel sounds present X 4 quads. Reports swelling on the right lower quadrant. : No signs and/or symptoms were reported regarding the genitourinary system. Derm: Skin is dry, Skin is normal. Musculoskeletal: Circulation, motion, and sensation intact. Range of motion: intact in all extremities. 20:23 Reassessment: Patient appears in no apparent distress at this time. Patient and/or pf1 family updated on plan of care and expected duration. Pain level reassessed. Patient is alert, oriented x 3, equal unlabored respirations, skin warm/dry/pink. Vital Signs: 18:06 BP 139 / 78; Pulse 77; Resp 16; Temp 97; Pulse Ox 99% ; ko1 19:20 BP 131 / 75; Pulse 61; Resp 17 S; Pulse Ox 98% on R/A; ha1 20:23 BP 135 / 67; Pulse 68; Resp 16; Pulse Ox 100% on R/A; pf1 ED Course: 18:01 Patient arrived in ED. mr 18:10 Triage completed. ko1 18:10 Arm band placed on right wrist. Patient placed in waiting room, Patient notified of ko1 wait time. 18:11 Joy Spann FNP-C is PHCP. kb 18:11 Ada Pop MD is Attending Physician. kb 18:40 CT Pelvis wo Cont In Process Unspecified. EDMS 19:00 Patient has correct armband on for positive identification. Placed in gown. Bed in low ha1 position. Call light in reach. Side rails up X 1. 19:35 Inserted saline lock: 20 gauge in left antecubital area, using aseptic technique. Blood ha1 collected. 20:18 Provided Education on: need to follow up with PCP. ha1 20:18 No provider procedures requiring assistance completed. ha1 20:23 IV discontinued, intact, bleeding controlled, No redness/swelling at site. Pressure pf1 dressing applied. Administered Medications: No medications were administered Medication: 20:18 VIS not applicable for this client. ha1 Outcome: 20:06 Discharge ordered by MD. harris 20:24 Discharged to home ambulatory, with family, pf1 20:24 Condition: improved 20:24 Discharge instructions given to patient, family, Instructed on discharge instructions, follow up and referral plans. Demonstrated understanding of instructions, follow-up care, medications, Prescriptions given X 1, 20:24 Patient left the ED. pf1 Signatures: Dispatcher [employer] EDMS Joy Spann, COMMUNICATIONS SUPERINTENDENT-C COMMUNICATIONS SUPERINTENDENT-Ckb Chantal Quarles, Reg Reg mr Kristina Soria, RN RN ha1 Argenis Hsu RN RN ko1 Tavia Soto, KAROL RN pf1 Corrections: (The following items were deleted from the chart) 20:24 20:23 BP 135 / 67; Pulse 16bpm; Resp 68bpm; Pulse Ox 100% RA; pf1 pf1
--- NOTE | 2023-02-10 20:07 | EDPHYS ---
Physician Documentation [facility] Name: Ángel Haddad Age: 68 yrs Sex: Male : 1955 Arrival Date: 02/10/2023 Time: 17:59 Bed 11 Private MD: ED Physician Ada Pop HPI: 02/10 20:07 This 68 yrs old Male presents to ER via Ambulatory with complaints of Surgical site kb infection. 20:07 Patient is a 68-year-old male who presents for swelling to right groin that started kb today. States he had a hernia repair about 2 weeks ago, dajuan removed 6 days ago. States he has not had any trouble until today. Reports swollen area is tender and it felt hot earlier. Denies fever. Historical: - Allergies: 18:10 apixaban; ko1 18:10 CLOPIDOGREL; ko1 18:10 tramadol; ko1 - PMHx: 18:10 Atrial Fib; CVA; kidney failure; Myocardial infarction; Pace maker; ko1 - Immunization history:: Adult Immunizations up to date. - Social history:: Smoking status: Patient denies any tobacco usage or history of. ROS: 20:07 Constitutional: Negative for fever, chills, and weight loss, kb 20:07 Skin: Positive for swelling, of the right inguinal area, 20:07 All other systems are negative, Exam: 20:07 Constitutional: This is a well developed, well nourished patient who is awake, alert, kb and in no acute distress. Head/Face: Normocephalic, atraumatic. ENT: Moist Mucous membranes Respiratory: Respirations even and unlabored. No increased work of breathing. Talking in full sentences MS/ Extremity: Pulses equal, no cyanosis. Neurovascular intact. Full, normal range of motion. Neuro: Awake and alert, GCS 15, oriented to person, place, time, and situation. Moves all extremities. Normal gait. 20:07 Skin: Surgical incision to right groin without erythema, drainage, warmth. Swelling noted to area.. Vital Signs: 18:06 BP 139 / 78; Pulse 77; Resp 16; Temp 97; Pulse Ox 99% ; ko1 19:20 BP 131 / 75; Pulse 61; Resp 17 S; Pulse Ox 98% on R/A; ha1 20:23 BP 135 / 67; Pulse 68; Resp 16; Pulse Ox 100% on R/A; pf1 MDM: 18:12 Patient medically screened. kb 20:07 Differential diagnosis: Seroma, abscess, hematoma. Data reviewed: vital signs, nurses kb notes. Management of patient was discussed with the following: Metallography Teacher: Dr. Krishnamurthy, recommends compression, ice, antibiotics and follow-up in his office on Sunday. Discussed all this with patient who is in agreement. Counseling: I had a detailed discussion with the patient and/or guardian regarding the historical points, exam findings, and any diagnostic results supporting the discharge/admit diagnosis, lab results, radiology results, the need for outpatient follow up, a general surgeon, to return to the emergency department if symptoms worsen or persist or if there are any questions or concerns that arise at home. 02/10 19:09 Order name: CBC with Diff; Complete Time: 19:48 kb 02/10 19:09 Order name: Basic Metabolic Panel; Complete Time: 19:49 kb 02/10 18:22 Order name: CT Pelvis wo Cont; Complete Time: 19:08 kb 02/10 19:09 Order name: IV Start; Complete Time: 19:23 kb Administered Medications: No medications were administered Disposition Summary: 02/10/23 20:06 Discharge Ordered Notes: Location: Home kb Condition: Stable kb Diagnosis - Hypodense fluid collection right groin kb Followup: kb - With: Emergency Department - When: As needed - Reason: Worsening of condition Followup: kb - With: Private Physician - When: 2 - 3 days - Reason: Recheck today's complaints, Continuance of care, Re-evaluation by your physician Discharge Instructions: - Discharge Summary Sheet kb - Seroma kb Forms: - Medication Reconciliation Form kb - Thank You Letter kb - Antibiotic Education kb - Prescription Opioid Use kb - Patient Portal Instructions kb - Leadership Thank You Letter kb Prescriptions: - Cipro 500 mg Oral Tablet - take 1 tablet ORAL route every 12 hours for 7 days; 14 tablet; Refills: 0, kb Product Selection Permitted Signatures: Dispatcher [employer] Joy Velásquez, ANDREY COCHRAN-Argenis Davidson, RN RN ko1
[2023-02-10 20:34] VITALS: TEMP 97
[2023-02-10 21:01] VITALS: BP 135/67; O2SAT 100
== END 2023-02-10 20:24 | disposition home or self-care (01) ==
LOC: ER 17:59
DX: R19.01 Right upper quadrant abdominal swelling, mass and lump (principal); Z98.890 Other specified postprocedural states; Z88.5 Allergy status to narcotic agent; Z88.8 Allergy status to other drugs, medicaments and biological substances; Z95.0 Presence of cardiac pacemaker
CPT/HCPCS: 36415; 72192; 80048; 85025; 99284

== ENCOUNTER 2023-02-21 07:13 | Day surgery (SDC) | payer OTHER ==
[2023-02-21] MEDS ORDERED: Ringers Lactate 1,000 ML IV ONE (07:18)
[2023-02-21] MEDS ORDERED: CEFAZOLIN SODIUM 2 GM/VIAL ONE (07:18)
[2023-02-21] MEDS ORDERED: BUPIVACAINE 0.5% PF 10 ML VIAL ONE (07:35)
[2023-02-21] MEDS ORDERED: propofoL 200 MG/20 ML VIAL IV ONE (07:46)
[2023-02-21] MEDS ORDERED: MIDAZOLAM HCL 2 MG/2 ML INJ ONE (07:46)
[2023-02-21] MEDS ORDERED: FENTANYL CITR 100 MCG/2 ML ONE (07:46)
[2023-02-21] MEDS ORDERED: ONDANSETRON 4 MG/2 ML VIAL ONE (07:46)
[2023-02-21] MEDS ORDERED: LIDOCAINE 2% MPF 5 ML VIAL ONE (07:46)
[2023-02-21 07:50] LABS: Absolute Lymphocytes (CBC) 1.3 K/uL (0.7-4.9); Hematocrit 28.8 % (39.6-49.0); Lymphocytes % 30.6 % (15.3-44.8); MCV 81.4 fL (80-100); MPV 7.6 fL (7.6-11.3); Platelets 225 thou/uL (152-406); RBC Red Blood Cell Count 3.54 M/uL (4.33-5.43)
[2023-02-21] MEDS ORDERED: METHYLENE BLUE 1% 10 ML VIAL ONE (08:03)
[2023-02-21] MEDS ORDERED: ROCURONIUM 50 MG/5 ML VIAL IV ONE (08:08)
[2023-02-21] MEDS ORDERED: NS 0.9% VIAL 10 ML ONE ×2 (08:20→08:47)
[2023-02-21] MEDS ORDERED: NS 0.9% VIAL 20 ML ONE (08:47)
[2023-02-21] MEDS ORDERED: NEOSTIGMINE 1 MG/ML -10 ML VIAL ONE (08:55)
--- NOTE | 2023-02-21 09:16 | P.OP ---
Date of Service: 02/21/23 Preop diagnosis: Right groin seroma Postop diagnosis: Same Procedure performed: Exploration right groin wound and removal of seroma Surgeon: Sonido Krishnamurthy MD Plant Pathologist: None Estimated blood loss: Minimal Specimen: None Findings: As above Anesthesia: General Complications: None Drains: FERNANDO #10 flat Fluids and blood products: Nonapplicable Disposition: Recovery room Operative note: Patient brought to the OR and placed in supine position. General anesthesia begun. Marcaine 0.5% plain locally. Methylene blue injected medial to the right femoral artery below the inguinal crease. This area was massaged. The right groin wound was opened with 15 blade. Subcutaneous tissue divided and bleeding controlled with cautery. Seroma cavity entered. At the medial aspect, it appeared that a small cavity was present where serous fluid was entry the cavity. This opening was closed with running 2-0 Prolene suture. There was no methylene blue visualized in this area. Arixta and Surgicel were placed in the wound bed. #10 flat FERNANDO drain was placed and secured with 3-0 nylon. 3-0 chromic was used to close subcutaneous tissue. Petal used to close the skin. Sterile dressing applied and patient awakened. Patient taken to recovery room in good general condition. CC:
[2023-02-21] MEDS ORDERED: HYDROCODONE/APAP 7.5/325 MG TAB PO PRN (09:18)
[2023-02-21 10:43] VITALS: BP 106/55; TEMP 97; O2SAT 97
== END 2023-02-21 10:15 | disposition home or self-care (01) ==
LOC: OR 07:13
PROVIDERS: ATTEND Surgery
PROC: 0J9C00Z Drainage of Pelvic Region Subcutaneous Tissue and Fascia with Drainage Device, Open Approach (ICD-10-PCS; 2023-02-21)
PROC: 0WJF3ZZ Inspection of Abdominal Wall, Percutaneous Approach (ICD-10-PCS; principal; 2023-02-21 07:30)
DX: S31.103A Unspecified open wound of abdominal wall, right lower quadrant without penetration into peritoneal cavity, initial encounter (principal); L76.34 Postprocedural seroma of skin and subcutaneous tissue following other procedure; D64.9 Anemia, unspecified; I25.10 Atherosclerotic heart disease of native coronary artery without angina pectoris; K21.9 Gastro-esophageal reflux disease without esophagitis; I10 Essential (primary) hypertension; I48.91 Unspecified atrial fibrillation
CPT/HCPCS: 49999; 85025; 36415; 10140; A4216 ×3; J2704; J2710; J2001; J2250; J3010; J2405; J7120

== ENCOUNTER 2023-10-31 01:59 | Observation (INO) | payer OTHER ==
--- OUTSIDE RECORDS SUMMARY | 2023-10-31 02:03 | XMS REPORT | Continuity of Care Document ---
Author Name Unknown Address [address] [facility] [address] [place] [address] [facility] Address [address] [facility] [address] [place] [address] Care Team Providers Care Volunteer Services Director Name Role Phone VIDA AZAR I. Primary Care Physician MAGDALENE King Attending Clinician UnavailZAK Berger Attending Clinician UnavailDAVID Pathak Attending Clinician Unavailab MAGADLENE Stroud Attending Clinician UnavailALEX Aguilar Attending Clinician Unavailable LAINA VANG Attending Clinician UnaCARLEY Bonilla Attending Clinician Unavailable MOUSTAPHA BANKS Attending Clinician Unavailable MOUTSAPHA BANKS ANITHA Attending Clinician Unavail able Only, Ang Db Test Attending Clinician UnavailAlfonzo Wolf Attending Clinician [phone] ALFONZO HERMOSILLO Attending Clinician Unavailable Sheila Key RN Attending Clinician Unavailab Hutchinson Unassigned, [place] Attending Clinician U DAVID Hernandez Attending Clinician Joaquina VIDA Choi I. Attending Clinician UnavailDavid Pathak MD Attending Clinician [phone] Darius Mcdowell CRNA Attending Clinician [phone] Jim Thakur MD Attending Clinician [phone] Only, Adc Test Attending Clinician Unavailable Nurse, [facility] Attending Clinician U DAVID Banda Admitting Clinician CARLOS Blum Admitting Clinician David Cavanaugh MD Admitting Clinician [phone] Payers Payer Name Policy Type Policy Number Effective Date Expirati on Date Source [facility] WELLDEION [id number] 2020 00:00:00 [employer] MEDICARE ADVANTAGE [id number] 2019 00:00:00 [facility] MEDICARE SUPPLEMENT [id number] 2019 00:00:00 [facility] MEDICARE ADVANTAGE [id number] 2016 00:00:00 Problems Condition Name Condition Details Condition Category Status Onset Date Resolution Date Last Treatment Date Treating Clinician Comments Source Diabetes mellitus without mention of complicati on, type II or unspecifie d type, uncontroll ed Diabetes mellitus without mention of complicati on, type II or unspecifie d type, uncontroll ed Active Problem 01/10/2018 Andreas Lott Problem Active 2018-01-10 02:57:21 Memkushal Key Gastro-eso phageal reflux disease with esophagiti s Gastro-eso phageal reflux disease with esophagiti s Active Problem 01/10/2018 Andreas Lott Problem Active 2018-01-10 02:57:21 Memkushal Key Malignant neoplasm of thyroid gland Malignant neoplasm of thyroid gland Active Problem 01/10/2018 Andreas Lott Problem Active 2018-01-10 02:57:21 [facility] Key Hyperlipid emia, unspecifie d Hyperlipid emia, unspecifie d Active Problem 01/10/2018 Andreas Lott Problem Active 2018-01-10 02:57:21 Memkushal Key Chronic kidney disease, unspecifie d Chronic kidney disease, unspecifie d Active Problem 01/10/2018 Andreas Lott Problem Active 2018-01-10 02:57:21 Memkushal Key Unspecifie d superficia l injury of right foot, initial encounter Unspecifie d superficia l injury of right foot, initial encounter Active Problem 01/10/2018 Andreas Lott Problem Active 2018-01-10 02:57:21 Memkushal Key Other cerebrovas cular disease Other cerebrovas cular disease Active Problem 01/10/2018 Andreas Lott Problem Active 2018-01-10 02:57:21 Memoria daljit Key Anxiety disorder, unspecifie d Anxiety disorder, unspecifie d Active Problem 01/10/2018 Andreas Lott Problem Active 2018-01-10 02:57:21 Memoria daljit Key Atrial fibrillati on Atrial fibrillati on Active Problem 01/10/2018 Andreas Lott Problem Active 2018-01-10 02:57:21 Memoria daljit Key Coronary atheroscle rosis of [place] coronary artery Coronary atheroscle rosis of [place] coronary artery Active Problem 01/10/2018 Andreas Lott Problem Active 2018-01-10 02:57:21 Memoria daljit Key Hyperlipid emia Hyperlipid emia Active Problem 01/10/2018 Andreas Lott Problem Active 2018-01-10 02:57:21 Memoria daljit Key Persistent atrial fibrillati on Persistent atrial fibrillati on Active Problem 01/10/2018 Andreas Lott Problem Active 2018-01-10 02:57:21 Memoria daljit Key Left ventricula r failure Left ventricula r failure Active Problem 01/10/2018 Andreas Lott Problem Active 2018-01-10 02:57:21 Memoria daljit Key Sleep apnea, unspecifie d Sleep apnea, unspecifie d Active Problem 01/10/2018 Andreas Lott Problem Active 2018-01-10 02:57:21 Memoria daljit Key Obstructiv e sleep apnea (adult) (pediatric ) Obstructiv e sleep apnea (adult) (pediatric ) Active Problem 01/10/2018 Andreas Lott Problem Active 2018-01-10 02:57:21 Oh Key Hypertroph y (benign) of prostate without urinary obstructio n and other lower urinary tract symptoms [LUTS] Hypertroph y (benign) of prostate without urinary obstructio n and other lower urinary tract symptoms [LUTS] Active Problem 01/10/2018 Andreas Lott Problem Active 2018-01-10 02:57:21 Memkushal Key Chronic kidney disease, Stage III (moderate) Chronic kidney disease, Stage III (moderate) Active Problem 01/10/2018 Andreas Lott Problem Active 2018-01-10 02:57:21 Memoria daljit Key GERD GERD Active Problem 01/10/2018 Andreas Lott Problem Active 2018-01-10 02:57:21 Memoria daljit Key Unspecifie d sleep apnea Unspecifie d sleep apnea Active Problem 01/10/2018 Andreas Lott Problem Active 2018-01-10 02:57:21 Oh Key Hypothyroi dism, unspecifie d Hypothyroi dism, unspecifie d Active Problem 01/10/2018 Andreas Lott Problem Active 2018-01-10 02:57:21 Oh Key Idiopathic gout, unspecifie d site Idiopathic gout, unspecifie d site Active Diagnosis 01/10/2018 Andreas Lott Diagnosis Active 2018-01-10 02:57:21 [facility] Chronic kidney disease, stage 3 (moderate) Chronic kidney disease, stage 3 (moderate) Active Diagnosis 01/10/2018 Andreas Lott Diagnosis Active 2018-01-10 02:57:21 Oh [facility] 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 Active Problem 01/10/2018 Andreas Lott Problem Active 2018-01-10 02:57:21 [facility] Type 2 diabetes mellitus with hyperglyce prabhu Type 2 diabetes mellitus with hyperglyce prabhu Active Diagnosis 01/10/2018 Andreas Lott Diagnosis Active 2018-01-10 02:57:21 Oh Key Gouty arthropath y, unspecifie d Gouty arthropath y, unspecifie d Active Problem 01/10/2018 Andreas Lott Problem Active 2018-01-10 02:57:21 Oh Key Unspecifie d essential hypertensi on Unspecifie d essential hypertensi on Active Problem 01/10/2018 Andreas Lott Problem Active 2018-01-10 02:57:21 Oh Key Unspecifie d hypothyroi dism Unspecifie d hypothyroi dism Active Problem 01/10/2018 Andreas Lott Problem Active 2018-01-10 02:57:21 Oh Key Diabetes mellitus without mention of complicati on, type II or unspecifie d type, not stated as uncontroll ed Diabetes mellitus without mention of complicati on, type II or unspecifie d type, not stated as uncontroll ed Active Problem 01/10/2018 Andreas Lott Problem Active 2018-01-10 02:57:21 Oh Key Hemorrhage of gastrointe stinal tract, unspecifie d Hemorrhage of gastrointe stinal tract, unspecifie d Active Problem 01/10/2018 Andreas Lott Problem Active 2018-01-10 02:57:21 Oh Key Low back pain Low back pain Active Problem 01/10/2018 Andreas Lott Problem Active 2018-01-10 02:57:21 Oh [facility] Allergies, Adverse Reactions, Alerts Allergy Name Allergy Type Status Severity Reaction(s) Onset Date Inactive Date Treating Clinician Comments Source ADHESIVE TAPE-CLIVE ICONES DRUG Active Other-Cmnt 2019-0 4 00:00: 00 [facility] APIXABAN DRUG INGREDI Active Rash 2020-0 4 00:00: 00 [facility] CLOPIDOG REL DRUG INGREDI Active Other-Cmnt 0 07-13 00:00: 00 [facility] DABIGATR AN ETEXILAT E DRUG INGREDI Active Rash 20200 07-13 00:00: 00 [facility] Adhesive Tape-Clive icones Propensi ty to adverse reaction s Active Other - See comments 0 07-13 00:00: 00 blisters [facility] Apixaban Propensi ty to adverse reaction s Active Rash 0 07-13 00:00: 00 [facility] Clopidog rel Propensi ty to adverse reaction s Active Other - See comments 0 07-13 00:00: [address] [facility] Dabigatr an Etexilat e Propensi ty to adverse reaction s Active Rash 0 07-13 00:00: 00 [facility] Tramadol Drug Intolera nce Active Other - See comments 0 07-13 00:00: 00 vomit [facility] Rivaroxa ban Propensi ty to adverse reaction s Active Rash 0 07-13 00:00: 00 [facility] TRAMADOL DRUG INGREDI Active Other-Cmnt 0 427 00:00: 00 [facility] RIVAROXA BAN DRUG INGREDI Active Rash 20200 07-13 00:00: 00 [facility] plavix plavix Active Info Not Available 2016-03 00:00: 00 [facility] Social History Social Habit Start Date Stop Date Quantity Comments Source Exposure to SARS-CoV-2 (event) 2021-09-20 00:00:00 2021-09-30 18:39:00 Yes [facility] Tobacco use and exposure 2019-07-14 00:00:00 2019-07-14 00:00:00 Smokeless tobacco non-user [facility] Sex Assigned At 1955 00:00:00 1955 00:00:00 [facility] Smoking Status Start Date Stop Date Source Never smoked tobacco [facility] Medications Ordered Medication Name Filled Medication Name Start Date Stop Date Current Medication? Ordering Clinician Indication Dosage Frequency Signature (SIG) Comments Components Source diphenhydrA MINE (BENADRYL) 25 mg capsule 08-05 14:15: 57 Yes 50mg Take 50 mg by mouth daily. [facility] naproxen (NAPROSYN ORAL) 08-05 14:15: 57 Yes 220{cap nevaeh} Take 220 capsules by mouth daily. [facility] PROBENECID- COLCHICINE ORAL 08-05 14:15: 57 Yes 500{cap nevaeh} Take 500 capsules by mouth daily. [facility] BACLOFEN ORAL 08-05 14:15: 57 Yes 200{cap nevaeh} Take 200 capsules by mouth daily. [facility] allopurinoL 100 mg tablet 08-05 14:15: 57 Yes 100mg Take 100 mg by mouth daily. [facility] escitalopra m oxalate (LEXAPRO) 20 mg tablet 08-05 14:15: 57 Yes 20mg Take 20 mg by mouth daily. [facility] pantoprazol e 20 mg EC tablet 08-05 14:15: 57 Yes 20mg Take 20 mg by mouth daily. [facility] ramipril 5 mg capsule 08-05 14:15: 57 Yes 5mg Take 5 mg by mouth daily. [facility] sotalol (SOTALOL AF) 120 mg tablet 08-05 14:15: 57 Yes 120mg Take 120 mg by mouth daily. [facility] Levothyroxi ne 137 mcg Cap 08-05 14:15: 57 Yes 137{cap nevaeh} Take 137 capsules by mouth daily. [facility] tamsulosin 0.4 mg 24 hr capsule 08-05 14:15: 57 Yes .4mg Take 0.4 mg by mouth daily. [facility] Escitalopra m Oxalate 2017-03 02:57: 21 Yes Karoline Rivera TAKE ONE TABLET BY MOUTH DAILY [facility]oria daljit [facility] Amlodipine Besylate 2017-03 02:57: 21 Yes Karoline Rivera 1 tablet Memori a daljit [facility] Baclofen 2017-03 02:57: 21 Yes Karoline Rivera TAKE ONE TABLET BY MOUTH EVERY SIX HOURS NEEDED [facility] Levothyroxi ne Sodium 2017-03 02:57: 21 Yes Karoline Rivera TAKE ONE TABLET BY MOUTH DAILY ON SUNDAY TO SUNDAY AND SUNDAY AND SUNDAY [facility] Ramipril 2017-03 02:57: 21 Yes Karoline Rivera TAKE ONE CAPSULE BY MOUTH DAILY [facility] Pantoprazol e Sodium 2017-03 02:57: 21 Yes Karoline Rivera 1 tablet Memori a daljit [facility] Sotalol HCl 2017-03 02:57: 21 Yes Kraoline Rivera 1 tablet [facility]ori a [facility] Cialis 2017-03 02:57: 21 Yes Karoline Rivera 1 tablet [facility] a [facility] Lexapro 2017-03 02:57: 21 Yes Karoline Rivera TAKE ONE TABLET BY MOUTH DAILY [facility] Sotalol HCl 2017-03 02:57: 21 Yes Karoline Rivera TAKE two TABLET BY MOUTH TWICE A DAY [facility]oria daljit [facility] Norvasc 2017-03 02:57: 21 Yes Karoline Rivera TAKE ONE TABLET BY MOUTH DAILY Memoria daljit [facility] Allopurinol 2017-03 02:57: 21 Yes Karoline Rivera 1 tablet Memori a daljit Key Protonix 2017-03 02:57: 21 Yes Karoline Rivera TAKE ONE TABLET BY MOUTH ONE TIME DAILY [facility] daljit Key Ramipril 2017-03 02:57: 21 Yes Karoline Rivera TAKE ONE CAPSULE BY MOUTH DAILY [facility] Gabapentin 2017-03 02:57: 21 Yes Karoline Rivera 1 capsule Memor ia daljit Key Eliquis 2017-03 02:57: 21 Yes Karoline Rivera not defined Memoria l [facility] Synthroid 2017-03 02:57: 21 Yes Karoline Rivera 1 tablet Memori a daljit [facility] Nitroglycer in 2017-03 02:57: 21 Yes Karoline Rivera 1 tablet under the tongue and allow to dissolve as needed [facility]oria daljit [facility] Tamsulosin HCl 2017-03 02:57: 21 Yes Karoline Rivera 1 capsule 30 minutes after the same meal each day Memoria daljit Key Baclofen 2017-03 02:57: 21 Yes Karoline Rivera TAKE ONE TABLET BY MOUTH EVERY 6 HOURS NEEDED [facility]oria dal[facility] Atorvastati n Calcium 2017-03 02:57: 21 Yes Karoline Rivera TAKE ONE TABLET BY MOUTH DAILY [facility]oria dalj[facility] Chlorthalid one 2017-03 02:57: 21 Yes Karoline Rivera 1/2 tab [facility] Levothyroxi ne Sodium 2017-03 02:57: 21 Yes Karoline Rivera 1 tablet Memori a daljit Key Flomax 2017-03 02:57: 21 Yes Karoline Rivera TAKE ONE CAPSULE BY MOUTH DAILY 30 MINUTES BEFORE SAME MEAL [facility]oria daljit [facility] Allopurinol 09-05 00:00: 00 Yes Karoline Rivera TAKE ONE TABLET BY MOUTH DAILY [facility] Synthroid 2015-03 00:00: 00 Yes Karoline Rivera 1 tablet [facility] a daljit [facility] [place] 11-13 00:00: 00 Yes Karoline Rivera 1 tablet as needed [facility] dalj[facility] Cholestyram ine 10-07 00:00: 00 Yes Karoline Rivera 1 packet mixed with water or non-carbon ated drink Memoria daljit Key Clonazepam 08-31 00:00: 00 Yes Karoline Rivera 1 tablet [facility]ori a dalj[facility] Clonidine HCl 11-24 00:00: 00 Yes Karoline Rivera 1 tablet Mem[facility] a [facility] Vital Signs Vital Name Observation Time Observation Value Comments S ource Weight 2017-03-09 18:30:00 [facility] [place] Height 2017-03-09 18:30:00 [facility] Respitory Rate 2017-03-09 18:30:00 [facility] Heart Rate 2017-03-09 18:30:00 [facility] [place] Diastolic (mm Hg) 2017-03-09 18:30:00 [facility] [place] Systolic (mm Hg) 2017-03-09 18:30:00 [facility] Temperature Oral (F) 2017-03-09 18:30:00 97.4 F [facility] Procedures Procedure Date / Time Performed Performing Clinicia n Source NOTICE OF BILLING PRACTICES FOR MEDICARE PATIENTS 2021-04-28 21:54:19 Doctor Unassigned, [place] [facility] ASSIGNMENT OF BENEFITS 2021-04-28 21:54:02 Docto r Unassigned, [place] [facility] Encounters Start Date/Time End Date/Time Encounter Type Admission Type Attending [facility] Facility Care Department Encounter ID Source 2022-10-13 13:53:50 Outpatient [facility] [id number] [facility] 2022-10-01 19:18:27 Outpatient [facility] [id number] [facility] 2022-09-29 02:44:20 Outpatient [facility] [id number] [facility] 2022-09-13 10:24:37 Outpatient [facility] [id number] [facility] 2022-09-04 16:20:31 Outpatient [facility] [id number] [facility] 2022-08-15 11:40:55 Outpatient [facility] [id number] [facility] 2022-07-20 15:42:29 Outpatient [facility] [id number] [facility] 2022-06-20 13:41:58 Outpatient [facility] [id number] [facility] 2022-04-11 12:43:29 Outpatient [facility] [id number] [facility] 2022-04-05 11:39:25 Outpatient [facility] [id number] [facility] 2021-12-11 08:39:01 Outpatient [facility] [id number] [facility] 2021-09-13 13:01:37 Outpatient MAGDALENE FORTE [facility] [id number] [facility] 2021-08-23 09:19:23 Outpatient [facility] [id number] [facility] 2021-06-14 10:21:53 Outpatient ZAK TESFAYE [facility] [id number] [facility] 2021-06-11 10:00:13 Outpatient [facility] [id number] Aicha Ugalde [facility] 2021-05-17 14:54:16 Outpatient ZAK TESFAYE [facility] [id number] [facility] 2021-04-28 16:42:22 Outpatient ZAK TESFAYE [facility] [id number] [facility] 2021-04-13 11:50:38 Outpatient ZAK TESFAYE [facility] [id number] [facility] 2021-03-01 11:36:41 Outpatient [facility] [id number] [facility] 2021-03-01 09:47:40 Outpatient REANNAQUOCMAGDALENE [facility] [id number] [facility] 2021-02-25 10:48:59 Outpatient JESSICAZAK MONIQUE [facility] [id number] [facility] 2021-02-18 10:34:54 Outpatient MAGDALENE FORTE [facility] [id number] [facility] 2021-01-13 19:20:35 Outpatient DAVID HALL [facility] [id number] [facility] 2021-01-13 19:20:35 Outpatient DAVID HALL [facility] [id number] [facility] 2021-01-12 14:58:16 Outpatient MAGDALENE FORTE [facility] [id number] [facility] 2023-12-05 09:15:00 2023-12-05 09:15:00 Outpatient MAGDALENE FORTE [facility] [id number] [facility] 2023-10-30 06:25:00 2023-10-30 11:00:00 Outpatient MAGDALENE FORTE [facility] [id number] [facility] 2023-10-18 10:45:00 2023-10-18 12:10:54 Outpatient NADEEN ALEX [facility] [id number] [facility] 2023-10-18 08:15:00 2023-10-18 08:15:00 Outpatient ALEX SENIOR [facility] [id number] [facility] 2023-04-18 10:45:00 2023-04-18 11:37:13 Outpatient LAINA AVNG [facility] [id number] [facility] 2023-01-01 16:00:00 2023-01-01 16:00:00 Outpatient CARLEY MOSELEY [facility] [id number] [facility] 2022-12-01 09:45:00 2022-12-01 10:37:44 Outpatient MOUSTAPHA BANKS [facility] [id number] [facility] 2022-11-24 05:56:00 2022-11-24 23:59:00 Outpatient MOUSTAPHA BANKS [facility] [id number] [facility] 2022-11-15 10:15:00 2022-11-15 10:15:00 Outpatient MOUSTAPHA BANKS [facility] [id number] [facility] 2022-11-03 09:30:00 2022-11-03 09:30:00 Outpatient MOUSTAPHA BANKS [facility] [id number] [facility] 2022-10-26 08:00:00 2022-10-26 08:00:00 Outpatient MOUSTAPHA BANKS [facility] [id number] [facility] 2022-10-18 11:15:00 2022-10-18 11:46:27 Outpatient MOUSTAPHA BANKS [facility] [id number] [facility] 2022-09-13 10:15:00 2022-09-13 11:27:45 Outpatient MAGDALENE FORTE [facility] [id number] [facility] 2022-09-05 14:30:00 2022-09-05 14:30:00 Outpatient MAGDALENE FORTE [facility] [id number] [facility] 2022-08-28 10:45:00 2022-08-28 11:39:21 Outpatient MOUSTPAHA BANKS [facility] [id number] [facility] 2022-04-11 13:00:00 2022-04-11 13:42:00 Outpatient MAGDALENE FORTE [facility] [id number] [facility] 2021-09-30 18:45:00 2021-09-30 19:00:00 Laboratory Only Only, Ang Db Alfonzo Vasquez [facility] [id number] [facility] 2021-09-30 18:45:00 2021-09-30 18:45:00 [id number] 2021-05-02 08:15:00 2021-05-02 15:30:00 Outpatient MAGDALENE FORTE [facility] [id number] [facility] 2021-04-29 00:00:00 2021-04-29 00:00:00 Letter (Out) Sheila Key [facility] [id number] 350.1.13.10 [id number] [id number] [facility] 2021-04-28 16:00:00 2021-04-28 16:15:00 Laboratory Only Only, Ang Db Test Vinnie [facility] [id number] [id number] [id number] [facility] 2021-04-28 16:00:00 2021-04-28 16:00:00 Outpatient Dima HERMOSILLO [facility] [id number] [facility] 2021-04-28 00:00:00 2021-04-28 00:00:00 Orders Only Doctor Unassigned, [place] [id number] 350.1.13.10 4.2.7.2.686 [id number] [facility] 2021-04-28 00:00:00 2021-04-28 00:00:00 Letter (Out) Doctor Unassigned, [place] [facility] [id number] 350.1.13.10 4.2.7.2.686 [id number] [facility] 2020-10-10 18:02:00 2020-10-11 05:39:00 Emergency E DAVID ANDREWS [facility] [id number] [facility] 2019-11-12 00:00:00 2019-11-12 00:00:00 Outpatient DANGELO AZARVIDA [facility] [id number] MD Eddie miramontes 2019-08-06 11:31:28 2019-08-06 14:15:00 Hospital Encounter David Granado [facility] [id number] 350.1.13.10 4.2.7.2.686 [id number] 2019-08-06 12:50:00 2019-08-06 13:19:00 Anesthesia Darius Mcdowell David K [facility] [id number] 350.1.13.10 4.2.7.2.686 [id number] 2019-08-05 09:04:50 2019-08-05 09:19:50 Laboratory Only Only, Adc Test [facility] [id number] 350.1.13.10 4.2.7.2.686 [id number] 2019-08-05 08:45:00 2019-08-05 08:45:[address] [facility] [id number] [facility] 2019-08-05 00:00:00 2019-08-05 00:00:00 Orders Only Doctor Unassigned, [place] [facility] [id number] 350.1.13.10 4.2.7.2.686 [id number] 2019-07-16 10:00:00 2019-07-16 13:45:00 Hospital Encounter David Granado [facility] [id number] 350.1.13.10 4.2.7.2.686 [id number] 2019-07-15 11:00:00 2019-07-15 11:00:[address] [facility] [id number] [facility] 2019-07-15 10:23:51 2019-07-15 10:30:38 Nurse Visit Nurse, [facility] [id number] 350.1.13.10 4.2.7.2.686 [id number] 2019-07-15 00:00:00 2019-07-15 00:00:00 Telephone David Granado [facility] [id number] 350.1.13.10 4.2.7.2.686 [id number]
[2023-10-31] MEDS ORDERED: ALBUTEROL 2.5 MG/3 ML NEB SOL ONE ×3 (02:39→03:55)
[2023-10-31] MEDS ORDERED: IPRATROPIUM BROM 0.5MG/2.5ML ONE ×3 (02:40→03:55)
[2023-10-31] MEDS ORDERED: METHYLPREDNISOLONE 125 MG INJ ONE (02:40)
[2023-10-31 02:42] LABS: Absolute Basophils 0.1 K/uL (0-0.5); Absolute Eosinophils 0.3 K/uL (0-0.5); Absolute Lymphocytes (CBC) 0.9 K/uL (0.7-4.9); Absolute Monocytes 0.4 K/uL (0.1-1.3); Absolute Neutrophil 4.5 K/uL (1.8-8.0); Basophils % 0.9 % (0-1.3); Eosinophils % 5.6 % (0-4.4); Hematocrit 26.7 % (39.6-49.0); Hemoglobin 8.2 g/dL (13.6-17.9); Lymphocytes % 14.4 % (15.3-44.8); MCH 24.3 pg (27.0-35.0); MCHC 30.5 g/dL (32.0-36.0); MCV 79.5 fL (80-100); MPV 7.7 fL (7.6-11.3); Neutrophils % 73.1 % (41.7-73.7); Nucleated Red Blood Cells % 0.7 % (0-0); Platelets 196 thou/uL (152-406); RBC Red Blood Cell Count 3.36 M/uL (4.33-5.43); Red Cell Distribution Width 19.6 % (12.1-15.2)
[2023-10-31 03:01] LABS: ALT/SGPT 18 U/L (16-61); AST/SGOT 22 U/L (15-37); Albumin 2.9 g/dL (3.4-5.0); Albumin/Globulin Ratio 0.8 (1.1-1.8); Alkaline Phosphatase 72 U/L (45-117); Bilirubin Total 0.5 mg/dL (0.2-1.0); Globulin 3.5 g/dL (2.3-3.5); NT PRO-BNP 1696 pg/mL (<125); Protein, Total 6.4 g/dL (6.4-8.2)
[2023-10-31 03:07] LABS: Bilirubin Direct < 0.2 mg/dL (0-0.2); Bilirubin Indirect, Calculated 0.3 mg/dL (0.2-0.8); C-Reactive Protein < 2.90 mg/L (<3.00)
[2023-10-31] MEDS ORDERED: ASPIRIN 81 MG CHEWABLE TABLET ONE (06:27)
[2023-10-31] MEDS ORDERED: FUROSEMIDE 40 MG/4 ML VIAL ONE (06:27)
--- NOTE | 2023-10-31 06:35 | EDPHYS ---
Physician Documentation [facility] Name: Ángel Haddad Age: 68 yrs Sex: Male : 1955 Arrival Date: 10/31/2023 Time: 01:59 Bed 5 Private MD: ED Physician Ada Pop HPI: 10/30 06:20 This 68 yrs old Male presents to ER via Ambulatory with complaints of sp4 Shortness Of Breath, Wheezing > 1 Year. 06:20 This is a 68-year-old male with past medical history of atrial fibrillation, history of sp4 pacemaker, history of CHF, history of hypothyroidism. 06:22 Reports he has had ablation done at [facility] 6:30 in the morning and then he sp4 has developed wheezing and shortness of breath. Patient reports ablation was done under moderate sedation by his fly raiser lockstitch. Patient's medications include famotidine, meclizine, Naprosyn, ramipril, sumatriptan, allopurinol, colchicine, escitalopram, levothyroxine, sotalol, tamsulosin, cefuroxime, doxycycline, furosemide. Additional history includes watchman's procedure, CKD, previous CVA, CAD,. Historical: - Allergies: 02:22 apixaban; iw 02:22 CLOPIDOGREL; iw 02:22 tramadol; iw 02:22 Adhesives; iw - Home Meds: 02:23 sotalol 120 mg Oral tablet 2 times per day [Active]; levothyroxine 100 mcg tablet daily iw [Active]; tamsulosin 0.4 mg oral capsule daily [Active]; ramipril 10 mg Oral capsule daily [Active]; sumatriptan succinate 100 mg oral tablet [Active]; - PMHx: 02:22 Atrial Fib; CVA; kidney failure; Myocardial infarction; Pace maker; iw - Immunization history:: Adult Immunizations up to date, Client reports receiving the 2nd dose of the Covid vaccine. - Infectious Disease History:: Denies. - Social history:: Smoking status: Patient denies any tobacco usage or history of. - Family history:: not pertinent. ROS: 06:28 Constitutional: Negative for fever, chills, and weight loss, positive shortness of sp4 breath and wheezing 06:28 All other systems are negative, Exam: 06:28 Constitutional: This is a well developed, well nourished patient who is awake, alert, sp4 appears chronically ill, pale and debilitated, Bilateral lower extremity edema with pitting. Head/Face: Normocephalic, atraumatic. Eyes: Pupils equal round and reactive to light, extra-ocular motions intact. Lids and lashes normal. Conjunctiva and sclera are not injected. Cornea within normal limits. Periorbital areas with no swelling, redness, or edema. ENT: Nares patent. No nasal discharge, no septal abnormalities noted. Tympanic membranes are normal and external auditory canals are clear. Oropharynx with no redness, swelling, or masses, exudates, or evidence of obstruction, uvula midline. Mucous membranes moist. Neck: Trachea midline, no thyromegaly or masses palpated, and no cervical lymphadenopathy. Supple, full range of motion without nuchal rigidity, or vertebral point tenderness. Chest/axilla: Normal chest wall appearance and motion. Nontender with no deformity. No lesions are appreciated. Cardiovascular: Regular rate and rhythm with a normal S1 and S2. No gallops, murmurs, or rubs. Normal PMI, positive bilateral lower extremity pulmonary edema , positive JVD Respiratory: Lungs have equal breath sounds bilaterally, clear to auscultation and percussion. No rales, rhonchi or wheezes noted. No increased work of breathing, no retractions or nasal flaring. Abdomen/GI: Soft, with normal bowel sounds. No distension or tympany. No guarding or rebound. No evidence of tenderness throughout. Back: No spinal tenderness. No costovertebral tenderness. Skin: Warm, dry with normal turgor. Normal color with no rashes, no lesions, and no evidence of cellulitis. MS/ Extremity: Pulses equal, no cyanosis. Neurovascular intact. Full, normal range of motion. Neuro: Awake and alert, GCS 15, oriented to person, place, time, and situation. Cranial nerves II-XII grossly intact. Motor strength 5/5 in all extremities. Sensory grossly intact. Psych: Awake, alert, with orientation to person, place and time. Behavior, mood, and affect are within normal limits 06:28 ECG was reviewed by the Attending Physician. EKG at 0 212 reveals electronic ventricular pacemaker rate 82. Vital Signs: 02:20 BP 130 / 71; Pulse 80; Resp 22; Pulse Ox 91% on R/A; Weight 96.16 kg; Height 6 ft. 2 iw in. ; Pain 0/10; 02:30 BP 151 / 93; Pulse 82; Resp 20; Pulse Ox 95% on R/A; al5 03:00 BP 149 / 91; Pulse 79; Resp 20; Pulse Ox 95% on Nebulizer Mask; al5 03:30 BP 143 / 86; Pulse 79; Resp 20; Pulse Ox 94% on Nebulizer Mask; al5 04:00 BP 138 / 86; Pulse 79; Resp 18; Pulse Ox 99% on Nebulizer Mask; al5 04:30 BP 141 / 86; Pulse 79; Resp 20; Pulse Ox 88% on R/A; al5 05:00 BP 137 / 89; Pulse 80; Resp 20; Pulse Ox 89% on R/A; al5 05:47 BP 133 / 83; Pulse 84; Resp 18; Pulse Ox 94% on 4 lpm NC; al5 06:10 BP 133 / 79; Pulse 83; Resp 18; Pulse Ox 96% on 4 lpm NC; al5 09:59 BP 158 / 89; Pulse 80; Resp 18; Pulse Ox 96% on R/A; mb9 02:20 Body Mass Index 27.22 (96.16 kg, 187.96 cm) iw 02:20 Pain Scale: Adult iw [place] Coma Score: 06:28 Eye Response: spontaneous(4). Motor Response: obeys commands(6). Verbal Response: sp4 oriented(5). Total: 15. MDM: 02:18 Patient medically screened. sp4 06:26 ED course: EXAM DESCRIPTION: Chest Single View CLINICAL HISTORY: chest wheezing sp4 COMPARISON: None TECHNIQUE: Single AP view of the chest. FINDINGS: Left-sided cardiac conduction device noted. Lung volumes diminished. Cardiac silhouette is enlarged. No pneumothorax. Small left pleural effusion. Diffuse bladder patchy airspace disease. No acute bony finding. IMPRESSION: 1. Diffuse bilateral patchy airspace disease, concerning for pulmonary edema versus atypical infection. 2. Small left pleural effusion. 3. Enlarged cardiac silhouette.. 06:28 Differential diagnosis: CHF exacerbation. Data reviewed: vital signs, nurses notes, lab sp4 test result(s), EKG, radiologic studies, plain films. ED course: Patient presents with wheezing and shortness of breath. Wheezing not auscultated on exam but patient has a diffuse bilateral crackles. Patient x-ray found pulmonary edema. Troponin elevated likely secondary to recent ablation. Patient warrants admission for management of acute CHF with pulmonary edema.. 06:35 Consideration of Admission/Observation Patient was admitted/placed on observation. sp4 Escalation of care including admission/observation considered. Management of patient was discussed with the following: Hospitalist: Admit team . Shank Scourer: Keisha FOSTER . ED course: X ray revealed - Diffuse bilateral patchy airspace disease, concerning for pulmonary edema versus atypical infection.. 07:25 ED course: Patient signed out to me by night physician. Patient is a 68-year-old male sp3 with significant PMH as documented with ablation that occurred yesterday at [facility]. We are awaiting cardiac echo to ascertain disposition. If echocardiogram is negative for pericardial effusion, we will keep patient here under Dr. Valdes. If positive echo then patient will likely need to be transferred. Patient is currently chest pain-free and resting comfortably.. 09:37 ED course: Discussed with Dr. Valdes again. Echocardiogram is negative and he confirms sp3 patient can be admitted here.. 10/30 02:22 Order name: LFT's; Complete Time: 04:03 sp4 10/30 02:22 Order name: BNP; Complete Time: 04:03 sp4 10/30 02:23 Order name: CRP; Complete Time: 04:03 sp4 10/30 02:31 Order name: CBC with Diff; Complete Time: 04:03 sp4 10/30 04:04 Order name: Troponin High Sensitivity; Complete Time: 04:53 sp4 10/30 06:12 Order name: Troponin High Sensitivity; Complete Time: 07:02 sp4 10/30 06:21 Order name: TSH; Complete Time: 08:34 sp4 10/30 06:21 Order name: T4 Free; Complete Time: 08:34 sp4 10/30 10:17 Order name: BMP la1 10/30 10:51 Order name: Basic Metabolic Panel EDTN 10/30 04:54 Order name: Chest Single View XRAY 4 10/30 07:01 Order name: Echo w/ Doppler [facility] 10/30 02:15 Order name: Cardiac monitoring; Complete Time: 02:23 al5 10/30 02:15 Order name: EKG - Nurse/Tech; Complete Time: 02:23 al5 10/30 02:15 Order name: IV Saline Lock; Complete Time: 10/30 02:15 Order name: Labs collected and sent; Complete Time: 10/30 02:15 Order name: O2 Per Protocol; Complete Time: 10/30 02:15 Order name: O2 Sat Monitoring; Complete Time: EC:28 Rate is 82 beats/min. Rhythm is regular, Paced. Clinical impression: No evidence of sp4 ischemia. Interpreted by me. Reviewed by me. Administered Medications: 02:50 Drug: MethylPrednisoLONE IVP 125 mg IVP once Route: IVP; Site: right antecubital; al5 04:00 Follow up: Response: No adverse reaction; Wheezing unchanged al5 02:50 Drug: Albuterol Inhalation 2.5 mg Inhalation every 20 minutes x3 Route: Inhalation; al5 03:30 Follow up: Response: No adverse reaction; Wheezing unchanged al5 02:50 Drug: Ipratropium Inhalation Aerosol 0.5 mg Inhalation once; Every 20 min for a total al5 of 3 treatments x3 Route: Inhalation; 03:30 Follow up: Response: No adverse reaction; Wheezing unchanged al5 03:40 Drug: Albuterol Inhalation 2.5 mg Inhalation every 20 minutes x3 Route: Inhalation; al5 03:50 Follow up: Response: No adverse reaction; Wheezing unchanged al5 03:40 Drug: Ipratropium Inhalation Aerosol 0.5 mg Inhalation once; Every 20 min for a total al5 of 3 treatments x3 Route: Inhalation; 03:50 Follow up: Response: No adverse reaction; Wheezing unchanged al5 04:00 Drug: Albuterol Inhalation 2.5 mg Inhalation every 20 minutes x3 Route: Inhalation; al5 04:00 Drug: Ipratropium Inhalation Aerosol 0.5 mg Inhalation once; Every 20 min for a total al5 of 3 treatments x3 Route: Inhalation; 06:37 Drug: Furosemide IVP 40 mg IVP once; give over 2 minutes Route: IVP; Site: right al5 antecubital; 07:01 Follow up: Response: No adverse reaction al5 06:37 Drug: Aspirin PO Chewable Tablet 324 mg PO once; 81 mg tablets x 4 Route: PO; al5 07:00 Follow up: Response: No adverse reaction al5 Disposition Summary: 10/31/23 09:38 Hospitalization Ordered Notes: Hospitalization Status: Inpatient Admission(10/31/23 09:38) sp3 Provider: Rodney Johnson(10/31/23 09:38) sp3 Condition: Stable(10/31/23 09:38) sp3 Problem: an acute exacerbation(10/31/23 09:38) sp3 Symptoms: have worsened(10/31/23 09:38) sp3 Bed/Room Type: Standard(10/31/23 09:38) sp3 Location: Telemetry/MedSurg (Inpatient)(10/31/23 11:55) bd Room Assignment: 220(10/31/23 11:55) bd Diagnosis - Chest pain, shortness of breath, elevated troponin sp3 Forms: - Medication Reconciliation Form sp3 - SBAR form sp3 - Leadership Thank You Letter sp3 Signatures: Dispatcher [employer] EDMS Berkley Muse Irene, RN RN iw Ada Pop MD MD sp3 Jacob Gould MD MD sp4 Angeles Daly RN RN al5 Corrections: (The following items were deleted from the chart) 06:12 06:12 Troponin High Sensitivity+C.LAB.BRZ ordered. EDMS EDMS 06:22 06:22 THYROID STIMULAT HORMONE+C.LAB.BRZ ordered. EDMS EDMS 06:22 06:22 T4 FREE+C.LAB.BRZ ordered. 

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
[2023-10-31 08:31] LABS: Thyroid Stimulating Hormone 10.2 uIU/mL (0.358-3.740)
--- NOTE | 2023-10-31 10:22 | P.HP ---
Certification for Inpatient Patient admitted to: Inpatient With expected LOS: >2 Midnights Patient will require the following post-hospital care: None Practitioner: I am a practitioner with admitting privileges, knowledge of patient current condition, hospital course, and medical plan of care. Services: Services provided to patient in accordance with Admission requirements found in Title 42 Section 412.3 of the Code of Federal Regulations Patient History Date of Service: 10/31/23 Reason for admission: CHF exacerbation, NSTEMI History of Present Illness: 68-year-old male with history of atrial fibrillation status post Watchman procedure, recent cardiac ablation on 10/29 with pacemaker/defibrillator in place, hypertension, CKD, previous CVA, CAD, hypothyroidism who presented to the emergency department with shortness of breath. He had his ablation at [facility] with the EP physician there on 10/29 early in the morning, he was discharged around 1 PM and feeling fine. Overnight he developed significant dyspnea and and for that reason presented to the emergency department. Patient was evaluated here in the emergency department and his labs were significant for a moderately elevated high sensitive troponin initially at 962.4 downtrending to 800.2 at this time. Cardiology was consulted while patient was in the emergency department and recommended stat echo be performed before admission to determine if there was a pericardial effusion which would require transfer. Echocardiogram was performed and ER physician reports that marine propulsion technician reported no pericardial effusion or critical findings. Patient was given IV Lasix, aspirin, Solu-Medrol, albuterol nebulizer treatment and is breathing much better at this time, ED provider wishes to admit patient for further evaluation management suspected acute on chronic diastolic CHF, NSTEMI. Allergies apixaban [From Eliquis] Allergy (Severe, Verified 02/21/23 08:19) Itching/Hives/Rash tramadol Allergy (Severe, Verified 02/21/23 08:19) Nausea/Vomiting clopidogrel [From Plavix] Allergy (Intermediate, Verified 02/21/23 08:19) Itching/Hives/Rash dabigatran etexilate [From Pradaxa] Allergy (Verified 02/21/23 08:19) Hives/Rash rivaroxaban [From Xarelto] Allergy (Verified 02/21/23 08:19) Hives/Rash Adhesives Allergy (Severe, Uncoded 02/21/23 08:19) Rash/Whelps Home Medications: Meclizine HCl 12.5 mg PO BEDTIME MDD 25 06/05/20 Ramipril [Altace] 10 mg PO BEDTIME 06/05/20 Allopurinol 100 mg PO BEDTIME 06/06/21 Escitalopram Oxalate 20 mg PO BEDTIME 06/06/21 Levothyroxine [Synthroid*] 88 mcg PO BEDTIME 06/06/21 Sotalol HCl [Sotalol] 120 mg PO BEDTIME 06/06/21 Tamsulosin [Flomax*] 0.4 mg PO BEDTIME 06/06/21 Baclofen 10 mg PO BEDTIME 01/25/23 Gabapentin 3 tab PO BEDTIME 01/25/23 Pantoprazole [Protonix Tab] 40 mg PO BEDTIME 01/25/23 Hydrocodone 7.5/APAP 325 [[place] 7.5/325 mg] 1 tab PO Q6H PRN 02/20/23 - Past Medical/Surgical History Diabetic: No -: 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 eye surgery -: heart stents -: Hernia repair -: thyroid surgery -: Nerve re-channeling to R. arm -: apendectomy -: pacemaker Psychosocial/ Personal History: Patient is retired, lives at home with his - Family History Father -: Heart disease, Kidney disease Notes: sacoidosis Mother -: Heart disease Notes: dementia, alzheimers Brother -: Heart disease, Stroke - Social History Alcohol use: No CD- Drugs: No Caffeine use: Yes Place of Residence: Home Review of Systems 10-point ROS is otherwise unremarkable Respiratory: Cough, Shortness of Breath Physical Examination - Physical Exam General: Alert, In no apparent distress, Oriented x3 HEENT: Atraumatic, PERRLA, Mucous membr. moist/pink, EOMI Neck: Supple, 2+ carotid pulse no bruit, No LAD Respiratory: Diminished, Crackles/rales Cardiovascular: Regular rate/rhythm, Normal S1 S2, Edema (1+ dominic le) Gastrointestinal: Normal bowel sounds, No tenderness Musculoskeletal: No tenderness Integumentary: No rashes Neurological: Normal speech, Normal strength at 5/5 x4 extr, Normal tone, Normal affect - Studies Laboratory Data (last 24 hrs) 10/31/23 10/31/23 02:34 02:34 WBC 6.20 Hgb 8.2 L Hct 26.7 L Plt Count 196 Total Bilirubin 0.5 AST 22 ALT 18 Alkaline Phosphatase 72 Assessment and Plan - Plan Assessment: Acute on chronic diastolic congestive heart failure NSTEMI-history of CAD Atrial fibrillation status post recent ablation 10/29 with previous Watchman procedure as well as pacemaker Hypertension CKD BPH Previous CVA Plan: Acute on chronic diastolic congestive heart failure NSTEMI-history of CAD Atrial fibrillation status post recent ablation 10/29 with previous Watchman procedure as well as pacemaker Had recent cardiac ablation on 10/29, was feeling fine developed shortness of breath overnight Initial troponin elevated, downtrending now Echocardiogram performed, no pericardial effusion or critical findings per tech Monitor telemetry, continue diuresis with IV Lasix, patient not on diuretics at home Appreciate further input from cardiology Denies chest pain, paced rhythm on EKG Continue sotalol Hypertension CKD BPH Previous CVA Continue home medications as appropriate DVT PPX: Lovenox Code status: Full Discharge Plan: Home Plan to discharge in: 48 Hours - Advance Directives Does patient have a Living Will: No Does patient have a Durable POA for Healthcare: No - Code Status/Comfort Care Code Status Assessed: Yes (Full) Critical Care: No Time Spent Managing Pts Care (In Minutes): 70
[2023-10-31 11:21] VITALS: BMI 27.1
[2023-10-31] MEDS: SOTALOL HCL 80 MG TAB PO SCH (17:29)
[2023-10-31] MEDS: FUROSEMIDE 40 MG/4 ML VIAL IV SCH (17:29)
--- NOTE | 2023-10-31 20:00 | CON ---
Date of Consultation: 10/31/2023 Reason For Consultation: Elevated troponin. History Of Present Illness: 68-year-old male with history of atrial fibrillation, status post AFib a blation yesterday and left atrial appendage closure, history of chronic kidney disease, coronary giovani ry disease, CVA, hypertension, and hypothyroidism, presented to the emergency room because of shortne ss of breath. He is known to have history of congestive heart failure. He gets shortness of breath periodically. Has mild lower extremity edema and mild orthopnea and no chest pain. Evaluation in th e emergency room revealed elevated troponin which is trending down. Echo did not show any pericardia l effusion. Past Medical History: As outlined above in the HPI. Medications: Refer to reconciliation sheet for detailed list. Allergies: HE IS ALLERGIC TO APIXABAN, TRAMADOL, CLOPIDOGREL, AND PRADAXA. Past Surgical History: AFib ablation, cardiac stent placement, thyroidectomy for thyroid cancer, her charles repair. Family History: No premature coronary artery disease or cancer. Social History: He does not smoke or drink. Does not use any drugs. Review of Systems: All systems were reviewed and they were negative except as mentioned in the HPI. Physical Examination: Vital Signs: Reviewed. Head and Neck: Pupils are equal, reactive to light. Intact eye movements. No JVD. No cervical lym phadenopathy. Neck is supple. Thyroid is not enlarged. Lungs: Clear to auscultation bilaterally. No rhonchi, wheezing, or crackles. No accessory muscle u se. Heart: Regular rate and rhythm. No extra sounds. Abdomen: Soft, nontender. Bowel sounds positive. No organomegaly. No masses or hernia. No rigidi ty or rebound. Extremities: No edema, clubbing, or cyanosis. Intact pulses. Skin: No rash. No nodule. Neurologic: Alert, awake, oriented x3. No acute focal deficits appreciated. Investigations: NT-proBNP is 1696. Initial troponin was 962 down to 434, BUN 26, creatinine 1.89. Echo, no pericardial effusion. Normal ejection fraction. Assessment And Recommendations: 1.Elevated troponin, likely procedure induced. He had atrial fibrillation ablation yesterday and th e troponins are trending down. He has no chest pain, and echo did not show any pericardial effusion. I recommend outpatient stress test given the fact that he has history of coronary artery disease, b ut this troponin elevation is not an acute coronary syndrome. 2.Congestive heart failure. It is chronic. NT-proBNP is elevated. Ejection fraction is normal, pr obably diastolic dysfunction. He does not look fluid overloaded. I will resume home medications inc luding diuretics and this patient can be released from cardiology standpoint. Follow up in the offic e within 1-2 weeks postdischarge. He sees Cardiology at [place] and he decided to move to [facility] on. He will obtain records and we will plan to review the records and manage accordingly. 3.Atrial fibrillation, status post ablation. He is in sinus rhythm and status post a bandage closur e, unsure when the bandage closure was done. Continue aspirin for now and sotalol and I will definit vincent change the Lasix to oral. Plan for discharge within next 24 hours. 4.Coronary artery disease. No chest pain. Outpatient workup. 5.Hypertension. Blood pressure is controlled. Cardiology will sign off and we will see the patient on an outpatient basis. /SULMAL Voice ID: [id number] Report ID: [id number]
[2023-10-31] MEDS: TAMSULOSIN 0.4 MG SR CAP PO SCH (20:32)
[2023-11-01 04:26] VITALS: O2SAT 93
[2023-11-01 05:23] LABS: Absolute Lymphocytes (CBC) 0.7 K/uL (0.7-4.9); Absolute Monocytes 0.6 K/uL (0.1-1.3); Absolute Neutrophil 9.2 K/uL (1.8-8.0); Basophils % 0.1 % (0-1.3); Hematocrit 26.6 % (39.6-49.0); Hemoglobin 8.2 g/dL (13.6-17.9); Lymphocytes % 6.7 % (15.3-44.8); MCH 24.2 pg (27.0-35.0); MCHC 30.7 g/dL (32.0-36.0); MPV 8.4 fL (7.6-11.3); Monocytes % 5.4 % (3.3-12.3); Neutrophils % 87.8 % (41.7-73.7); Nucleated Red Blood Cells % 0.2 % (0-0); Platelets 195 thou/uL (152-406); RBC Red Blood Cell Count 3.37 M/uL (4.33-5.43); Red Cell Distribution Width 19.6 % (12.1-15.2)
[2023-11-01 05:55] LABS: Anion Gap 7.9 mEq/L (5.0-15.0); Potassium 3.9 mEq/L (3.5-5.1)
[2023-11-01 05:58] LABS: Thyroid Stimulating Hormone 4.81 uIU/mL (0.358-3.740)
--- NOTE | 2023-11-01 06:58 | ECHO ---
HEIGHT: 6 ft 2 in WEIGHT: 211 lb 0 oz DATE OF STUDY: 10/31/[address]: Jacob Gould MD 2-DIMENSIONAL: YES M.MODE: YES DOPPLER: YES COLOR FLOW: YES TDS: PORTABLE: YES DEFINITY: BUBBLE STUDY: DIAGNOSIS: EFFUSION CARDIAC HISTORY: CATHERIZATION: YES SURGERY: NO PROSTHETIC VALVE: NO PACEMAKER: YES MEASUREMENTS (cm) DIASTOLIC (NORMALS) SYSTOLIC (NORMALS) IVSd 1.0 (0.6-1.2) LA Diam 4.0 (1.9-4.0) LVEF 55-60% LVIDd 4.6 (3.5-5.7) LVIDs 3.1 (2.0-3.5) %FS 32% LVPWd 1.0 (0.6-1.2) Ao Diam 3.3 (2.0-3.7) 2 DIMENSIONAL ASSESSMENT: RIGHT ATRIUM: NORMAL LEFT ATRIUM: ENLARGED RIGHT VENTRICLE: PACEMAKER LEFT VENTRICLE: NORMAL TRICUSPID VALVE: MODERATE TRICUSPID REGURGITATION MITRAL VALVE: MILD MITRAL REGURGITATION PULMONIC VALVE: MILD PULMONARY INSUFFICIENCY AORTIC VALVE: MILD AOTIC INSUFFICIENCY PERICARDIAL EFFUSION: NONE AORTIC ROOT: NORMAL LEFT VENTRICULAR WALL MOTION: NORMAL DOPPLER/COLOR FLOW: SEE BELOW COMMENTS: 1. NORMAL LEFT VENTRICULAR EJECTION FRACTION 55-60% 2. LEFT ATRIAL ENLARGEMENT (MILD) 3. MODERATE TO SEVERE TRICUSPID REGURGITATION 4. MODERATE TO SEVERE TRICUSPID REGURGITATION 5. PULMONARY HYPERTENSION WITH RIGHT VENTRICULAR SYSTOLIC PRESSURE OF 50 mmHg PLUS RIGHT ATRIAL PRESSURE TECHNOLOGIST: MANJIT SCHOFIELD
[2023-11-01 07:08] LABS: Anisocytosis 1+; Blood Morphology Comment NOTED (NOT SEEN); Platelet Estimate ADEQ; White Blood Cell Scan OK (OK)
[2023-11-01 07:09] LABS: Hypochromasia 1+; Polychromasia 1+
--- NOTE | 2023-11-01 07:57 | P.DS ---
Admission Date: 10/31/23 Discharge Date: 11/01/23 Disposition: ROUTINE DISCHARGE Discharge Condition: GOOD Reason for Admission: CHF exacerbation, NSTEMI Consultations: CardiologyDr. Valdes Brief History of Present Illness: 68-year-old male with history of atrial fibrillation status post Watchman procedure, recent cardiac ablation on 10/29 with pacemaker/defibrillator in place, hypertension, CKD, previous CVA, CAD, hypothyroidism who presented to the emergency department with shortness of breath. He had his ablation at [facility] with the EP physician there on 10/29 early in the morning, he was discharged around 1 PM and feeling fine. Overnight he developed significant dyspnea and and for that reason presented to the emergency department. Patient was evaluated here in the emergency department and his labs were significant for a moderately elevated high sensitive troponin initially at 962.4 downtrending to 800.2 at this time. Cardiology was consulted while patient was in the emergency department and recommended stat echo be performed before admission to determine if there was a pericardial effusion which would require transfer. Echocardiogram was performed and ER physician reports that lead technical architect reported no pericardial effusion or critical findings. Patient was given IV Lasix, aspirin, Solu-Medrol, albuterol nebulizer treatment and is breathing much better at this time, ED provider wishes to admit patient for further evaluation management suspected acute on chronic diastolic CHF, NSTEMI. Hospital Course: Assessment: Acute on chronic diastolic congestive heart failure NSTEMI-history of CAD Atrial fibrillation status post recent ablation 10/29 with previous Watchman procedure as well as pacemaker Hypertension CKD BPH Previous CVA Patient was admitted to hospital for CHF exacerbation, NSTEMI. He had a recent cardiac ablation on 10/29 for A-fib, he also has a pacemaker/defibrillator in place and is on sotalol as well as having a previous Watchman procedure. His initial high sensitive troponin was 962.4, trended down and is currently 434.6. He was diuresed with IV Lasix and had improvement in his respiratory symptoms, currently tolerating room air and feeling much better. He was evaluated by cardiology who felt that the troponin leak was related to his recent procedure and recommended continuing diuretic at home. Echo was obtained and showed the following COMMENTS: 1. NORMAL LEFT VENTRICULAR EJECTION FRACTION 55-60% 2. LEFT ATRIAL ENLARGEMENT (MILD) 3. MODERATE TO SEVERE TRICUSPID REGURGITATION 4. PULMONARY HYPERTENSION WITH RIGHT VENTRICULAR SYSTOLIC PRESSURE OF 50 mmHg PLUS RIGHT ATRIAL PRESSURE Patient also with CKD 3, creatinine 1.88 GFR 38 at discharge, also with m icrocytic anemia hemoglobin of 8.2. Please follow-up with your primary care doctor 1 to 2 weeks Please also follow-up with Dr. Greshamology You should also follow-up with a metal cabinet finisher if you are not already seeing one in regards to your chronic kidney disease. Please continue your home medications as previously prescribed New prescription for Lasix 40 mg once daily will be sent to [facility] in [place], please continue to take this until otherwise instructed by cardiology or your primary care doctor Vital Signs/Physical Exam: Temp Pulse Resp BP Pulse Ox 97.7 F 83 16 143/79 H 93 11/01/23 04:00 11/01/23 04:00 11/01/23 04:00 11/01/23 04:00 11/01/23 04:00 General: Alert, In no apparent distress, Oriented x3 HEENT: Atraumatic, PERRLA Neck: Supple, JVD not distended Respiratory: Clear to auscultation bilaterally, Normal air movement Cardiovascular: Regular rate/rhythm, Normal S1 S2 Gastrointestinal: Normal bowel sounds, No tenderness Musculoskeletal: No tenderness Integumentary: No rashes Neurological: Normal speech, Normal affect Laboratory Data at Discharge: WBC 10.40 thou/uL (4.3-10.9) 11/01/23 04:57 Hgb 8.2 g/dL (13.6-17.9) L 11/01/23 04:57 Hct 26.6 % (39.6-49.0) L 11/01/23 04:57 Plt Count 195 thou/uL (152-406) 11/01/23 04:57 Sodium 138 mEq/L (136-145) 11/01/23 04:57 Potassium 3.9 mEq/L (3.5-5.1) 11/01/23 04:57 BUN 32 mg/dL (7-18) H 11/01/23 04:57 Creatinine 1.88 mg/dL (0.70-1.30) H 11/01/23 04:57 Glucose 119 mg/dL (74-106) H 11/01/23 04:57 Total Bilirubin 0.5 mg/dL (0.2-1.0) 10/31/23 02:34 AST 22 U/L (15-37) 10/31/23 02:34 ALT 18 U/L (16-61) 10/31/23 02:34 Alkaline Phosphatase 72 U/L (45-117) 10/31/23 02:34 Home Medications: Meclizine HCl 12.5 mg PO BEDTIME MDD 25 06/05/20 Ramipril [Altace] 10 mg PO BEDTIME 06/05/20 Allopurinol 100 mg PO BEDTIME 06/06/21 Escitalopram Oxalate 20 mg PO BEDTIME 06/06/21 Levothyroxine [Synthroid*] 88 mcg PO BEDTIME 06/06/21 Sotalol HCl [Sotalol] 120 mg PO BEDTIME 06/06/21 Tamsulosin [Flomax*] 0.4 mg PO BEDTIME 06/06/21 Baclofen 10 mg PO BEDTIME 01/25/23 Gabapentin 3 tab PO BEDTIME 01/25/23 Pantoprazole [Protonix Tab*] 40 mg PO BEDTIME 01/25/23 Hydrocodone 7.5/APAP 325 [[place] 7.5/325 mg*] 1 tab PO Q6H PRN 02/20/23 Furosemide [Lasix] 40 mg PO DAILY #30 tab 11/01/23 New Medications: Furosemide [Lasix] 40 mg PO DAILY #30 tab Physician Discharge Instructions: Patient was admitted to hospital for CHF exacerbation, NSTEMI. He had a recent cardiac ablation on 10/29 for A-fib, he also has a pacemaker/defibrillator in place and is on sotalol as well as having a previous Watchman procedure. His initial high sensitive troponin was 962.4, trended down and is currently 434.6. He was diuresed with IV Lasix and had improvement in his respiratory symptoms, currently tolerating room air and feeling much better. He was evaluated by cardiology who felt that the troponin leak was related to his recent procedure and recommended continuing diuretic at home. Echo was obtained and showed the following COMMENTS: 1. NORMAL LEFT VENTRICULAR EJECTION FRACTION 55-60% 2. LEFT ATRIAL ENLARGEMENT (MILD) 3. MODERATE TO SEVERE TRICUSPID REGURGITATION 4. PULMONARY HYPERTENSION WITH RIGHT VENTRICULAR SYSTOLIC PRESSURE OF 50 mmHg PLUS RIGHT ATRIAL PRESSURE Patient also with CKD 3, creatinine 1.88 GFR 38 at discharge, also with microcytic anemia hemoglobin of 8.2. Please follow-up with your primary care doctor 1 to 2 weeks Please also follow-up with Dr. Greshamology You should also follow-up with a metal cabinet finisher if you are not already seeing one in regards to your chronic kidney disease. Please continue your home medications as previously prescribed New prescription for Lasix 40 mg once daily will be sent to [facility] in [place], please continue to take this until otherwise instructed by cardiology or your primary care doctor Diet: AHA Activity: Fall precautions Followup: Dany Barrera MD [ACTIVE - CAN ADMIT] - Erick Valdes MD [ACTIVE - CAN ADMIT] - 1-2 Weeks Paula Elias NP [Primary Care Provider] - 1-2 Weeks Time spent managing pt's care (in minutes): 35
[2023-11-01 08:50] VITALS: BP 121/68; TEMP 98
[2023-11-01] MEDS: ENOXAPARIN 40 MG/0.4 ML SQ SCH (09:17)
[2023-11-01] MEDS: ASPIRIN EC 81 MG TAB PO SCH (09:17)
--- NOTE | 2023-11-01 11:12 | RAD REPORT ---
EXAM DESCRIPTION: RAD - Chest Single View - 10/31/2023 5:14 am CLINICAL HISTORY: Chest wheezing COMPARISON: None TECHNIQUE: Single AP view of the chest. FINDINGS: Left-sided cardiac conduction device noted. Lung volumes diminished. Cardiac silhouette is enlarged. No pneumothorax. Small left pleural effusion. Diffuse bladder patchy airspace disease. No acute bony finding. IMPRESSION: 1. Diffuse bilateral patchy airspace disease, concerning for pulmonary edema versus at ypical infection. 2. Small left pleural effusion. 3. Enlarged cardiac silhouette. Electronically signed by: Bernard Berry MD 10/31/2023 06:15 AM CDT RP Z9 Due to temporary technical issues with the PACS/Fluency reporting system, reports are being signed by the in house radiologist without review as a courtesy to ensure prompt reporting. The interpreting r adiologist is fully responsible for the content of the report.
== END 2023-11-01 09:46 | disposition home or self-care (01) ==
LOC: ER 01:59 → INTOOBSV 10:07 → ERHOLD 10:07 → 2ND 12:33
PROVIDERS: ADMIT Hospitalist; ATTEND Hospitalist
DX: I21.4 Non-ST elevation (NSTEMI) myocardial infarction (principal); I50.33 Acute on chronic diastolic (congestive) heart failure; I48.11 Longstanding persistent atrial fibrillation; I25.10 Atherosclerotic heart disease of native coronary artery without angina pectoris; I27.29 Other secondary pulmonary hypertension; I07.1 Rheumatic tricuspid insufficiency; I25.2 Old myocardial infarction; R07.9 Chest pain, unspecified; R06.02 Shortness of breath; R79.89 Other specified abnormal findings of blood chemistry; E03.8 Other specified hypothyroidism; N40.0 Benign prostatic hyperplasia without lower urinary tract symptoms; N18.30 Chronic kidney disease, stage 3 unspecified; D50.9 Iron deficiency anemia, unspecified; Z86.73 Personal history of transient ischemic attack (TIA), and cerebral infarction without residual deficits; Z95.5 Presence of coronary angioplasty implant and graft; Z88.5 Allergy status to narcotic agent; Z88.8 Allergy status to other drugs, medicaments and biological substances
CPT/HCPCS: 36415; 71045; 80048; 80076; 83880; 84439; 84443; 84484; 85025; 86140; 93306; 96374; 96375; 99285; J1650; J1940; J2919; J7613; J7644

== ENCOUNTER 2023-11-12 23:40 | Inpatient (IN) | payer OTHER ==
--- OUTSIDE RECORDS SUMMARY | 2023-11-12 23:44 | XMS REPORT | Continuity of Care Document ---
Author Name Unknown Address [address] [facility] [address] [place] [address] [facility] Address [address] [facility] [address] [place] [address] Care Team Providers Care Forest Technician Name Role Phone VIDA AZAR I. Primary Care Physician MAGDALENE King Attending Clinician UnavailZAK Berger Attending Clinician UnavailDAVID Pathak Attending Clinician Unavailab MAGDALENE Stroud Attending Clinician UnavailALEX Aguilar Attending Clinician Unavailable LAINA VANG Attending Clinician UnaCARLEY Bonilla Attending Clinician Unavailable MOUSTAPHA BANKS Attending Clinician Unavailable MOUSTAPHA BANKS Attending Clinician Unavail able Only, Ang Db Test Attending Clinician UnavailAlfonzo Wolf Attending Clinician [phone] ALFONZO HERMOSILLO Attending Clinician Unavailable Sheila Key RN Attending Clinician Unavailab Hutchinson Unassigned, Donnellson Attending Clinician U DAVID Hernandez Attending Clinician Joaquina VIDA Choi I. Attending Clinician UnavailDavid Pathak MD Attending Clinician [phone] Darius Mcdowell CRNA Attending Clinician [phone] Jim Thakur MD Attending Clinician [phone] Only, Adc Test Attending Clinician Unavailable Nurse, [facility] General Surgery Attending Clinician U DAVID Banda Admitting Clinician CARLOS Blum Admitting Clinician David Cavanaugh MD Admitting Clinician [phone] Payers Payer Name Policy Type Policy Number Effective Date Expirati on Date Source [facility] WELLDEION [id number] 2020 00:00:00 WELLMED/[employer] MEDICARE ADVANTAGE [id number] 2019 00:00:00 [facility] MEDICARE SUPPLEMENT [id number] 2019 00:00:00 [facility] MEDICARE ADVANTAGE [id number] 2016 00:00:00 Problems Condition Name Condition Details [...] [facility] Coronary atheroscle [place] coronary artery Coronary atheroscle [place] coronary artery Active Problem 01/10/2018 Andreas Lott [...] DRUG Active Other-Cmnt 2019-0 4 00:00: 00 [facility] APIXABAN DRUG INGREDI Active Rash 2020-0 4 00:00: 00 [facility] CLOPIDOG REL DRUG INGREDI Active Other-Cmnt 0 07-13 00:00: 00 [facility] DABIGATR AN ETEXILAT E DRUG INGREDI Active Rash 20200 07-13 00:00: 00 [facility] Adhesive Tape-Clive icones Propensi ty to adverse reaction s Active Other - See comments 0 07-13 00:00: 00 blisters [facility] Apixaban Propensi ty to adverse reaction s Active Rash 0 07-13 00:00: 00 [facility] Clopidog rel Propensi ty to adverse reaction s Active Other - See comments 0 07-13 00:00: 00 rash [facility] Dabigatr an Etexilat e Propensi ty to adverse reaction s Active Rash 0 07-13 00:00: 00 [facility] Tramadol Drug Intolera nce Active Other - See comments 0 07-13 00:00: 00 vomit [facility] Rivaroxa ban Propensi ty to adverse reaction s Active Rash 0 07-13 00:00: 00 [facility] TRAMADOL DRUG INGREDI Active Other-Cmnt 0 427 00:00: 00 [facility] RIVAROXA BAN DRUG INGREDI Active Rash 20200 07-13 00:00: 00 [facility] plavix plavix Active Info Not Available 2016-03 00:00: 00 [place] Social History Social Habit Start Date Stop Date Quantity Comments Source Exposure to SARS-CoV-2 (event) 2021-09-20 00:00:00 2021-09-30 18:39:00 Yes [facility] Tobacco use and exposure 2019-07-14 00:00:00 2019-07-14 00:00:00 Smokeless tobacco non-user [facility] Sex Ass[birth year] At 1955 00:00:00 1955 00:00:00 [facility] Smoking Status Start Date Stop Date Source Never smoked tobacco [facility] Medications Ordered Medication Name Filled Medication Name Start Date Stop Date Current Medication? Ordering Clinician Indication Dosage Frequency Signature (SIG) Comments Components Source diphenhydrA MINE (BENADRYL) 25 mg capsule 08-05 14:15: 57 Yes 50mg Take 50 mg by mouth daily. [facility] naproxen (NAPROSYN ORAL) 08-05 14:15: 57 Yes 220{cap nevaeh} Take 220 capsules by mouth daily. [facility] PROBENECID- COLCHICINE ORAL 08-05 14:15: 57 Yes 500{cap nevaeh} Take 500 capsules by mouth daily. [facility] BACLOFEN ORAL 08-05 14:15: 57 Yes 200{cap nevaeh} Take 200 capsules by mouth daily. [facility] allopurinoL 100 mg tablet 08-05 14:15: 57 Yes 100mg Take 100 mg by mouth daily. [facility] escitalopra m oxalate (LEXAPRO) 20 mg tablet 08-05 14:15: 57 Yes 20mg Take 20 mg by mouth daily. [facility] pantoprazol e 20 mg EC tablet 08-05 14:15: 57 Yes 20mg Take 20 mg by mouth daily. [facility] ramipril 5 mg capsule 08-05 14:15: 57 Yes 5mg Take 5 mg by mouth daily. [facility] sotalol (SOTALOL AF) 120 mg tablet 08-05 14:15: 57 Yes 120mg Take 120 mg by mouth daily. [facility] Levothyroxi ne 137 mcg Cap 08-05 14:15: 57 Yes 137{cap nevaeh} Take 137 capsules by mouth daily. [facility] tamsulosin 0.4 mg 24 hr capsule 08-05 14:15: 57 Yes .4mg Take 0.4 mg by mouth daily. [facility] Escitalopra m Oxalate 2017-03 02:57: 21 Yes [...] Yes Karoline Rivera 1 tablet [facility] [place] 11-13 00:00: 00 Yes Karoline Rivera 1 [...] S ource Weight 2017-03-09 18:30:00 [facility] [place] Height 2017-03-09 18:30:00 [facility] Respitory Rate 2017-03-09 18:30:00 [facility] Heart Rate 2017-03-09 18:30:00 [facility] [place] Diastolic (mm Hg) 2017-03-09 18:30:00 [facility] [place] Systolic (mm Hg) 2017-03-09 18:30:00 [place] Temperature Oral (F) 2017-03-09 18:30:00 97.4 F [place] Procedures Procedure Date / Time Performed Performing Clinicia n Source NOTICE OF BILLING PRACTICES FOR MEDICARE PATIENTS 2021-04-28 21:54:19 Doctor Unassigned, Donnellson [facility] ASSIGNMENT OF BENEFITS 2021-04-28 21:54:02 Docto r Unassigned, Donnellson [facility] Encounters Start Date/Time End Date/Time Encounter Type Admission Type Attending [facility] Care Department Encounter ID Source 2022-10-13 13:53:50 Outpatient [facility] [id number] [facility] 2022-10-01 19:18:27 Outpatient [facility] [id number] [facility] 2022-09-29 02:44:20 Outpatient [facility] [id number] [facility] 2022-09-13 10:24:37 Outpatient [facility] [id number] [facility] 2022-09-04 16:20:31 Outpatient [facility] [id number] [facility] 2022-08-15 11:40:55 Outpatient [facility] [id number] [facility] 2022-07-20 15:42:29 Outpatient [facility] [id number] [facility] 2022-06-20 13:41:58 Outpatient [facility] [id number] [facility] 2022-04-11 12:43:29 Outpatient [facility] [id number] [facility] 2022-04-05 11:39:25 Outpatient [facility] [id number] [facility] 2021-12-11 08:39:01 Outpatient [facility] [id number] [facility] 2021-09-13 13:01:37 Outpatient MAGDALENE FORTE [facility] [id number] [facility] 2021-08-23 09:19:23 Outpatient [facility] [id number] [facility] 2021-06-14 10:21:53 Outpatient ZAK TESFAYE [facility] [id number] [facility] 2021-06-11 10:00:13 Outpatient [facility] [id number] [facility] 2021-05-17 14:54:16 Outpatient ZAK TESFAYE [facility] [id number] [facility] 2021-04-28 16:42:22 Outpatient ZAK TESFAYE [facility] [id number] [facility] 2021-04-13 11:50:38 Outpatient ZAK TESFAYE [facility] [id number] [facility] 2021-03-01 11:36:41 Outpatient [facility] [id number] [facility] 2021-03-01 09:47:40 Outpatient REANNAQUOCMAGDALENE [facility] [id number] [facility] 2021-02-25 10:48:59 Outpatient JESSICAZAK MONIQUE [facility] [id number] [facility] 2021-02-18 10:34:54 Outpatient MAGDALENE FORTE [facility] [id number] [facility] 2021-01-13 19:20:35 Outpatient DAVID HALL [facility] [id number] [facility] 2021-01-13 19:20:35 Outpatient DAVID HALL [facility] [id number] [facility] 2021-01-12 14:58:16 Outpatient MAGDALENE FORTE [facility] [id number] [facility] 2023-12-05 09:15:00 2023-12-05 09:15:00 Outpatient MAGDALENE FORTE [facility] [id number] [facility] 2023-10-30 06:25:00 2023-10-30 11:00:00 Outpatient MAGDALENE FORTE [facility] [id number] [facility] 2023-10-18 10:45:00 2023-10-18 12:10:54 Outpatient NADEEN ALEX [facility] [id number] [facility] 2023-10-18 08:15:00 2023-10-18 08:15:00 Outpatient ALEX SENIOR [facility] [id number] [facility] 2023-04-18 10:45:00 2023-04-18 11:37:13 Outpatient LAINA VANG [facility] [id number] [facility] 2023-01-01 16:00:00 2023-01-01 16:00:00 Outpatient CARLEY MOSELEY [facility] [id number] [facility] 2022-12-01 09:45:00 2022-12-01 10:37:44 Outpatient MOUSTAPHA BANKS [facility] [id number] [facility] 2022-11-24 05:56:00 2022-11-24 23:59:00 Outpatient MOUSTAPHA BANKS [facility] [id number] [facility] 2022-11-15 10:15:00 2022-11-15 10:15:00 Outpatient MOUSTAPHA BANKS [facility] [id number] [facility] 2022-11-03 09:30:00 2022-11-03 09:30:00 Outpatient MOUSTAPHA BANKS [facility] [id number] [facility] 2022-10-26 08:00:00 2022-10-26 08:00:00 Outpatient MOUSTAPHA BANKS [facility] [id number] [facility] 2022-10-18 11:15:00 2022-10-18 11:46:27 Outpatient MOUSTAPHA BANKS [facility] [id number] [facility] 2022-09-13 10:15:00 2022-09-13 11:27:45 Outpatient MAGDALENE FORTE [facility] [id number] [facility] 2022-09-05 14:30:00 2022-09-05 14:30:00 Outpatient MAGDALENE FORTE [facility] [id number] [facility] 2022-08-28 10:45:00 2022-08-28 11:39:21 Outpatient MOUSTAPHA BANKS [facility] [id number] [facility] 2022-04-11 13:00:00 2022-04-11 13:42:00 Outpatient MAGDALENE FORTE [facility] [id number] [facility] 2021-09-30 18:45:00 2021-09-30 19:00:00 Laboratory Only Only, Ang Db Alfonzo Vasquez COUNTS INCLUDE [id number] BEDS AT THE [facility] [id number] [facility] 2021-09-30 18:45:00 2021-09-30 18:45:00 [id number] 2021-05-02 08:15:00 2021-05-02 15:30:00 Outpatient MAGDALENE FORTE [facility] [id number] [facility] 2021-04-29 00:00:00 2021-04-29 00:00:00 Letter (Out) Sheila Key [facility] [id number] [facility] 2021-04-28 16:00:00 2021-04-28 16:15:00 Laboratory Only Only, Ang Db Test [facility] [id number] [facility] 2021-04-28 16:00:00 2021-04-28 16:00:00 Outpatient [facility] [id number] [facility] 2021-04-28 00:00:00 2021-04-28 00:00:00 Orders Only Doctor Unassigned, Donnellson [place] [id number] [facility] 2021-04-28 00:00:00 2021-04-28 00:00:00 Letter (Out) Doctor Unassigned, Donnellson [facility] [id number] [facility] 2020-10-10 18:02:00 2020-10-11 05:39:00 Emergency E DAVID ANDREWS [facility] [id number] [facility] 2019-11-12 00:00:00 2019-11-12 00:00:00 Outpatient DANGELO AZARVIDA [facility] [id number] MD Eddie miramontes 2019-08-06 11:31:28 2019-08-06 14:15:00 Hospital Encounter David Granado [facility] [id number] 2019-08-06 12:50:00 2019-08-06 13:19:00 Anesthesia Darius Mcdowell David K [facility] [id number] [id number] [id number] [id number] 2019-08-05 09:04:50 2019-08-05 09:19:50 Laboratory Only Only, Adc Test [facility] [id number] 350.1.13.10 [id number] [id number] 2019-08-05 08:45:00 2019-08-05 08:45:00 Outpatient DAVID HALL [facility] [id number] [facility] 2019-08-05 00:00:00 2019-08-05 00:00:00 Orders Only Doctor Unassigned, Donnellson [facility] [id number] 350.1.13.10 [id number] [id number] 2019-07-16 10:00:00 2019-07-16 13:45:00 Hospital Encounter David Granado [facility] [id number] [id number] [id number] [id number] 2019-07-15 11:00:00 2019-07-15 11:00:00 Outpatient DAVID HALL [facility] [id number] [facility] 2019-07-15 10:23:51 2019-07-15 10:30:38 Nurse Visit Nurse, [facility] General Surgery [facility] [id number] [id number] 2019-07-15 00:00:00 2019-07-15 00:00:00 Telephone David Granado [facility] [id number] 350.1.13.10 [id number] [id number]
[2023-11-13 01:02] LABS: Absolute Basophils 0.1 K/uL (0-0.5); Absolute Eosinophils 0.3 K/uL (0-0.5); Absolute Lymphocytes (CBC) 0.8 K/uL (0.7-4.9); Absolute Monocytes 0.3 K/uL (0.1-1.3); Absolute Neutrophil 4.1 K/uL (1.8-8.0); Basophils % 1.1 % (0-1.3); Eosinophils % 5.5 % (0-4.4); Hematocrit 33.5 % (39.6-49.0); MCH 25.7 pg (27.0-35.0); MCHC 29.9 g/dL (32.0-36.0); MCV 85.8 fL (80-100); MPV 8.3 fL (7.6-11.3); Monocytes % 6.1 % (3.3-12.3); Neutrophils % 72.3 % (41.7-73.7); Nucleated Red Blood Cells % 0.1 % (0-0); Platelets 234 thou/uL (152-406); Red Cell Distribution Width 28.2 % (12.1-15.2)
[2023-11-13] MEDS ORDERED: IPRATROPIUM BROM 0.5MG/2.5ML ONE (01:11)
[2023-11-13] MEDS ORDERED: ALBUTEROL 2.5 MG/3 ML NEB SOL ONE (01:11)
[2023-11-13 01:16] LABS: Anion Gap 4.1 mEq/L (5.0-15.0); Potassium 4.1 mEq/L (3.5-5.1); Troponin High Sensitivity 13.4 pg/mL (<58.9)
--- NOTE | 2023-11-13 01:55 | EDPHYS ---
Physician Documentation [facility] Name: Ángel Haddad Age: 68 yrs Sex: Male : 1955 Arrival Date: 11/12/2023 Time: 23:40 Bed 14 Private MD: ED Physician Lucas Worrell HPI: 11/12 01:21 This 68 yrs old Male presents to ER via Ambulatory with complaints of Wheezing, kb Breathing Difficulty. 01:23 Pt is a 68 year old male who presents for wheezing and shortness of breath for 2 days. kb States he had something similar 2 weeks ago and had to be admitted for 2 days. Denies fever.. Historical: - Allergies: 11/11 23:54 Adhesives; kl 23:54 apixaban; kl 23:54 CLOPIDOGREL; kl 23:54 tramadol; kl - PMHx: 23:54 Atrial Fib; CVA; kidney failure; Myocardial infarction; Pace maker; kl ROS: 11/12 00:54 Constitutional: As per HPI kb Exam: 00:53 Constitutional: This is a well developed, well nourished patient who is awake, alert, kb and in no acute distress. Head/Face: Normocephalic, atraumatic. ENT: Moist Mucous membranes Cardiovascular: Regular rate Respiratory: Respirations even and unlabored. No increased work of breathing. Talking in full sentences Abdomen/GI: Soft, non-tender. No distention Skin: Warm, dry with normal turgor. Normal color. MS/ Extremity: Pulses equal, no cyanosis. Neurovascular intact. Full, normal range of motion. Neuro: Awake and alert, GCS 15, oriented to person, place, time, and situation. Moves all extremities. Normal gait. 00:53 ECG was reviewed by the Attending Physician. Vital Signs: 11/11 23:55 BP 168 / 87; Pulse 84; Resp 20; Temp 97; Pulse Ox 99% ; Weight 91.17 kg; Height 6 ft. 2 ss in. ; Pain 0/10; 11/12 01:15 BP 166 / 82; Pulse 82; Resp 33; Pulse Ox 97% on Nebulizer Mask; jb4 02:30 BP 137 / 86; Pulse 80; Resp 17; Pulse Ox 100% on 3 lpm NC; jb4 11/11 23:55 Body Mass Index 25.81 (91.17 kg, 187.96 cm) ss 11/11 23:55 Pain Scale: Adult ss MDM: 11/11 23:48 Patient medically screened. kb 11/12 01:24 Differential diagnosis: pulmonary edema, pneumonia, bronchitis. Data reviewed: vital kb signs, nurses notes. Historians other than the Patient: Spouse/Significant Other: . External Records Reviewed: Inpatient record: Previous admission record reviewed. Pt was admitted for elevated troponin which trended down during admission. Creatinine similar to todays. 01:52 Consideration of Admission/Observation Patient was admitted/placed on observation. kb Escalation of care including admission/observation considered. Management of patient was discussed with the following: Hospitalist: Dr López accepts pt for admission. Counseling: I had a detailed discussion with the patient and/or guardian regarding the historical points, exam findings, and any diagnostic results supporting the discharge/admit diagnosis, lab results, radiology results, the need for further work-up and treatment in the hospital. ED course: After pt walked to room, oxygen saturation decreased to 83% and shortness of breath increased with wheezing. Neb treatment given, wheezing improved. Pt currently on 3L O2 with oxygen saturation of 92-93%. Will admit for CHF exacerbation. 11/12 00:01 Order name: Basic Metabolic Panel; Complete Time: 01:19 kb 11/12 00:01 Order name: CBC with Diff; Complete Time: 13:55 kb 11/12 00:01 Order name: NT PRO-BNP; Complete Time: 01:19 kb 11/12 00:01 Order name: Troponin HS; Complete Time: 01:19 kb 11/12 01:05 Order name: CBC Smear Scan; Complete Time: 13:55 EDMS 11/12 02:19 Order name: CBC with Automated Diff EDAK 11/12 02:19 Order name: CBC with Automated Diff EDMS 11/12 02:19 Order name: Comprehensive Metabolic Panel EDAK 11/12 02:19 Order name: Comprehensive Metabolic Panel EDAK 11/12 02:19 Order name: Troponin High Sensitivity EDAK 11/12 02:19 Order name: Troponin High Sensitivity EDAK 11/12 00:01 Order name: XRAY Chest (1 view) kb 11/12 00:01 Order name: Cardiac monitoring; Complete Time: 01:00 kb 11/12 00:01 Order name: EKG - Nurse/Tech; Complete Time: 01:00 kb 11/12 00:01 Order name: IV Saline Lock; Complete Time: : kb 11/12 00:01 Order name: Labs collected and sent; Complete Time: kb 11/12 00:01 Order name: O2 Per Protocol; Complete Time: kb 11/12 00:01 Order name: O2 Sat Monitoring; Complete Time: : kb EC:53 Rate is 83 beats/min. Rhythm is regular. QRS [place] is Normal. QRS interval is normal at kb 180 msec. QT interval is prolonged at 538 msec. Administered Medications: 01:21 Drug: Albuterol Inhalation 2.5 mg Inhalation once Route: Inhalation; 4 01:21 Drug: Ipratropium Inhalation Aerosol 0.5 mg Inhalation once Route: Inhalation; jb4 02:35 Drug: Furosemide IVP 20 mg IVP once; give over 2 minutes Route: IVP; Site: right [facility] antecubital; Disposition: 03:23 Co-signature as Attending Physician, Lucas Worrell MD I reviewed the patient's care rt provided by the Advanced Practice Provider and agree with the diagnosis and treatment plan. Disposition Summary: 11/13/23 01:54 Hospitalization Ordered Notes: Hospitalization Status: Observation kb Provider: Dot López Condition: Stable kb Problem: new kb Symptoms: are unchanged kb Bed/Room Type: Standard kb Location: Telemetry/MedSurg (observation)(11/13/23 15:00) bd Room Assignment: [facility](11/13/23 15:00) bd Diagnosis - Unspecified combined systolic (congestive) and diastolic (congestive) heart failure kb - Hypoxia kb Forms: - Medication Reconciliation Form kb - SBAR form kb - Leadership Thank You Letter kb Signatures: Dispatcher [employer] EDMS Joy Spann, ROOM ATTENDANT-C ROOM ATTENDANT-Berkley Ruiz Kimberly, RN Charla Hilario RN RN ss Bryson, James, RN RN jb4 [place], Ryan, MD MD rt Corrections: (The following items were deleted from the chart) 00:01 00:01 BASIC METABOLIC PANEL+C.LAB.BRZ ordered. EDMS EDMS 00:01 00:01 CBC+H.LAB.BRZ ordered. EDMS EDMS 00:01 00:01 PROBNP+C.LAB.BRZ ordered. EDMS EDMS 00:01 00:01 Troponin High Sensitivity+C.LAB.BRZ ordered. EDMS EDMS 01:26 01:24 External Records Reviewed: Inpatient record: Previous admission record reviewed. steven Pt was admitted for elevated troponin which trended down during admission. kb 05:53 01:54 Telemetry/MedSurg (observation) kb 05:53 01:54 kb ss 15:00 05:53 BR ER HOLD ss bd 15:00 05:53 ERHOLD- ss bd
--- NOTE | 2023-11-13 01:55 | ER ---
Nurse's Notes [facility] Name: Ángel Haddad Age: 68 yrs Sex: Male : 1955 Arrival Date: 11/12/2023 Time: 23:40 Bed 14 Private MD: Diagnosis: Unspecified combined systolic (congestive) and diastolic (congestive) heart failure;Hypoxia Presentation: 11/11 23:53 Chief complaint: Patient states: shortness of breath x 2 days. Coronavirus screen: kl Client denies travel out of the [place] in the last 14 days. Ebola Screen: Patient denies exposure to infectious person. Patient denies travel to an Ebola-affected area in the 21 days before illness onset. Initial Sepsis Screen: Does the patient meet any 2 criteria? No. Patient's initial sepsis screen is negative. Does the patient have a suspected source of infection? No. Patient's initial sepsis screen is negative. Onset of symptoms was November 10, 2023. 23:53 Method Of Arrival: Ambulatory kl 23:53 Acuity: MARGO 3 kl Historical: - Allergies: 23:54 Adhesives; kl 23:54 apixaban; kl 23:54 CLOPIDOGREL; kl 23:54 tramadol; kl - PMHx: 23:54 Atrial Fib; CVA; kidney failure; Myocardial infarction; Pace maker; kl Screenin/27 08:00 [facility] ED Fall Risk Assessment (Adult) History of falling in the last 3 months, dd2 including since admission No falls in past 3 months (0 pts) Confusion or Disorientation No (0 pts) Intoxicated or Sedated No (0 pts) Impaired Gait Yes (1 pt) Mobility Assist Device Used No (0 pt) Altered Elimination No (0 pt) Score/Fall Risk Level 0 - 2 = Low Risk Oriented to surroundings, Maintained a safe environment, Educated pt \T\ family on fall prevention, incl call for assistance when getting out of bed, Assessed \T\ reinforced patient's understanding of fall precautions, Hourly rounding (assess needs \T\ fall precautionary measures) done. Abuse screen: Denies threats or abuse. Nutritional screening: No deficits noted. Tuberculosis screening: No symptoms or risk factors identified. Assessment: 01:37 Reassessment: Pt continues to appear very uncomfortable. PT desat to 83% on RA after jb4 breathing treatment. PLaced on 2L NC sats increased to 89. Placed on 3L NC sats increased to 91%. Vital Signs: 11/11 23:55 BP 168 / 87; Pulse 84; Resp 20; Temp 97; Pulse Ox 99% ; Weight 91.17 kg; Height 6 ft. 2 ss in. ; Pain 0/10; 11/12 01:15 BP 166 / 82; Pulse 82; Resp 33; Pulse Ox 97% on Nebulizer Mask; jb4 02:30 BP 137 / 86; Pulse 80; Resp 17; Pulse Ox 100% on 3 lpm NC; jb4 11/11 23:55 Body Mass Index 25.81 (91.17 kg, 187.96 cm) ss 11/11 23:55 Pain Scale: Adult ss ED Course: 11/11 23:46 Patient arrived in ED. gm2 23:48 [facility] kb 23:48 Lucas Worrell MD is Attending Physician. kb 23:54 Triage completed. kl 23:55 Arm band placed on right wrist. kl 11/12 00:38 Inserted saline lock: 20 gauge in right upper arm, using aseptic technique. Blood ha1 collected. Flushed with 10 mL NS. 01:01 Basic Metabolic Panel Sent. ha1 01:01 CBC with Diff Sent. ha1 01:01 NT PRO-BNP Sent. ha1 01:01 Troponin HS Sent. ha1 01:02 XRAY Chest (1 view) In Process Unspecified. EDMS 01:54 Dot López MD is Hospitalizing Provider. kb 02:34 Jesus Barnes RN is Primary Nurse. jb4 15:49 No provider procedures requiring assistance completed. Patient admitted, IV remains in dd2 place. Administered Medications: 01:21 Drug: Albuterol Inhalation 2.5 mg Inhalation once Route: Inhalation; jb4 01:21 Drug: Ipratropium Inhalation Aerosol 0.5 mg Inhalation once Route: Inhalation; jb4 02:35 Drug: Furosemide IVP 20 mg IVP once; give over 2 minutes Route: IVP; Site: right jb4 antecubital; Outcome: 01:54 Decision to Hospitalize by Provider. kb 15:49 Admitted to Med/surg accompanied by tech, via wheelchair, with oxygen, Report called to dd2 KAROL Olivares 15:49 Condition: stable 15:49 Instructed on the need for admit, 15:50 Patient left the ED. dd2 Signatures: Dispatcher [employer] EDJoy Curran, ANDREY DIAZP-Anne Estrada RN RN Charla Harrison RN RN ss Bryson, James, KAROL ROBERSON jb4 Kristina Soria RN RN ha1 Rochelle Sheffield 2 RINKU CAMPA RN RN dd2 Corrections: (The following items were deleted from the chart) 01:45 11/11 23:55 BP 168 / 87; Pulse 84bpm; Resp 17bpm; Pulse Ox 99%; Temp 97F; 91.17 kg; ss Height 6 ft. 2 in.; BMI: 25.8; Pain 0/10, Adult; kl
[2023-11-13] MEDS ORDERED: ACETAMINOPHEN 500 MG TAB PO PRN (02:12)
[2023-11-13] MEDS ORDERED: ONDANSETRON 4 MG/2 ML VIAL IV PRN (02:12)
[2023-11-13] MEDS ORDERED: ALBUTEROL 2.5 MG/3 ML NEB SOL NEB PRN (02:12)
--- NOTE | 2023-11-13 02:12 | P.HP ---
Certification for Inpatient Patient admitted to: Observation With expected LOS: <2 Midnights Patient will require the following post-hospital care: None Practitioner: I am a practitioner with admitting privileges, knowledge of patient current condition, hospital course, and medical plan of care. Services: Services provided to patient in accordance with Admission requirements found in Title 42 Section 412.3 of the Code of Federal Regulations Patient History Date of Service: 11/13/23 Reason for admission: Shortness of breath History of Present Illness: 68-year-old male with past medical history of hypertension, diastolic CHFecho shows normal EF recently, A-fib status post recent ablation, CKD stage III with baseline creatinine around 1.8, hypothyroidism, recent hospitalization for A-fib ablation with CHF exacerbation discharge about 2 weeks ago presented today because of worsening shortness of breath as well as a cough as well as additional dyspnea. Patient denies any fever. Patient denies any chest pain. Arrival in the ED vital signs were stable. O2 sat initially was 96% on room air but later worsening with exertion to 91%. Chest x-ray shows pulmonary edema. Troponin was normal. BMP was unremarkable except for creatinine of 1.8about baseline. CBC was unremarkable. Patient is being admitted for CHF exacerbation at the time of interview , 02 sat better at 100 on 3 L ,after IV lasix and diuresis , 02 wean down to 1 L //min Allergies apixaban [From Eliquis] Allergy (Severe, Verified 02/21/23 08:19) Itching/Hives/Rash tramadol Allergy (Severe, Verified 02/21/23 08:19) Nausea/Vomiting clopidogrel [From Plavix] Allergy (Intermediate, Verified 02/21/23 08:19) Itching/Hives/Rash dabigatran etexilate [From Pradaxa] Allergy (Verified 02/21/23 08:19) Hives/Rash rivaroxaban [From Xarelto] Allergy (Verified 02/21/23 08:19) Hives/Rash Adhesives Allergy (Severe, Uncoded 02/21/23 08:19) Rash/Whelps Home Medications: Meclizine HCl 12.5 mg PO BEDTIME MDD 25 06/05/20 Ramipril [Altace] 10 mg PO BEDTIME 06/05/20 Allopurinol 100 mg PO BEDTIME 06/06/21 Escitalopram Oxalate 20 mg PO BEDTIME 06/06/21 Levothyroxine [Synthroid*] 88 mcg PO BEDTIME 06/06/21 Sotalol HCl [Sotalol] 120 mg PO BEDTIME 06/06/21 Tamsulosin [Flomax*] 0.4 mg PO BEDTIME 06/06/21 Baclofen 10 mg PO BEDTIME 01/25/23 Gabapentin 3 tab PO BEDTIME 01/25/23 Pantoprazole [Protonix Tab*] 40 mg PO BEDTIME 01/25/23 Hydrocodone 7.5/APAP 325 [[place] 7.5/325 mg*] 1 tab PO Q6H PRN 02/20/23 Furosemide [Lasix] 40 mg PO DAILY #30 tab 11/01/23 - Past Medical/Surgical History Diabetic: No -: 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 eye surgery -: heart stents -: Hernia repair -: thyroid surgery -: Nerve re-channeling to R. arm -: apendectomy -: pacemaker Psychosocial/ Personal History: Patient is retired, lives at home with his - Family History Father -: Heart disease, Kidney disease Notes: sacoidosis Mother -: Heart disease Notes: dementia, alzheimers Brother -: Heart disease, Stroke - Social History Alcohol use: No CD- Drugs: No Caffeine use: Yes Review of Systems 10-point ROS is otherwise unremarkable Respiratory: Cough, Shortness of Breath, SOB with Excertion Physical Examination - Physical Exam General: Alert, In no apparent distress, Oriented x3 HEENT: Atraumatic, Normocephalic, PERRLA, Mucous membr. moist/pink Neck: 2+ carotid pulse no bruit, JVD not distended Respiratory: Normal air movement, Crackles/rales Cardiovascular: Regular rate/rhythm, Normal S1 S2, Edema Gastrointestinal: Normal bowel sounds, Soft and benign, Non-distended, No ascites, No tenderness Musculoskeletal: No clubbing, No warmth, Swelling Neurological: Normal speech, Normal strength at 5/5 x4 extr, Cranial nerves 3-12 intact - Studies Laboratory Data (last 24 hrs) 11/13/23 11/13/23 00:35 00:35 WBC 5.60 Hgb 10.0 L Hct 33.5 L Plt Count 234 Sodium 140 Potassium 4.1 BUN 22 H Creatinine 1.82 H Glucose 101 Assessment and Plan - Problems (Diagnosis) (1) Pulmonary edema Onset Date: 02/01/18 Current Visit: No Status: Acute Qualifiers: (2) Atrial fibrillation Onset Date: 03/15/17 Current Visit: No Status: Chronic Qualifiers: (3) BPH (benign prostatic hyperplasia) Onset Date: 03/15/17 Current Visit: No Status: Chronic Qualifiers: (4) Chronic renal disease Onset Date: 03/15/17 Current Visit: No Status: Chronic Qualifiers: (5) HTN (hypertension) Onset Date: 03/15/17 Current Visit: No Status: Chronic (6) History of CVA (cerebrovascular accident) Current Visit: No Status: Chronic - Plan Impression Acute diastolic CHF exacerbation Hypertension History of A-fib CKD stage III BPH Plan Will admit patient to observation Increase Lasix to IV 40 mg every 12 Follow daily weight Fluid restriction to less than 1.2 L/day Monitor vital signs and O2 Continue home medication including sotalol for A-fib Possible DC home in a.m. Full code Lovenox for DVT prophylaxis - Advance Directives Does patient have a Living Will: No Does patient have a Durable POA for Healthcare: Yes
[2023-11-13] MEDS ORDERED: FUROSEMIDE 20 MG/ 2ML VIAL ONE (02:21)
[2023-11-13 02:26] LABS: Anisocytosis 3+; Blood Morphology Comment NOTED (NOT SEEN); Hypochromasia 1+; Microcytosis 1+; Platelet Estimate ADEQ; White Blood Cell Scan OK (OK)
[2023-11-13] MEDS ORDERED: FUROSEMIDE 40 MG/4 ML VIAL ONE ×2 (04:04→08:52)
[2023-11-13] MEDS: FUROSEMIDE 40 MG/4 ML VIAL IV SCH (04:10)
[2023-11-13 04:41] VITALS: BMI 25.8
[2023-11-13] MEDS: LEVOTHYROXINE SOD 0.088 MG TAB PO SCH (08:00)
--- NOTE | 2023-11-13 12:39 | EKG ---
Test Date: 2023-11-13 Test Time: 00:47:32 Vp Of Customer Experience Strategy: [place] MEASUREMENT RESULTS: Intervals: Rate: 83 HI: QRSD: 180 QT: 458 QTc: 538 Colome: P: HI: QRS: 18 T: 147 INTERPRETIVE STATEMENTS: Electronic ventricular pacemaker Compared to ECG 10/31/2023 02:12:51 No significant changes Electronically Signed On 11-13-23 12:37:49 CDT by Yosvany Blount
--- NOTE | 2023-11-13 13:16 | P.CNS ---
Date of Consult: 11/13/23 Chief Complaint: Shortness of breath History of Present Illness: Patient with PMH of atrial fibrillation s/p ablation, pacemaker placement and watchman placement, diastolic heart failure presented with worsening SOB that got owrse yesterday, denies any chest pain, no palpitations, no syncope. Allergies apixaban [From Eliquis] Allergy (Severe, Verified 02/21/23 08:19) Itching/Hives/Rash tramadol Allergy (Severe, Verified 02/21/23 08:19) Nausea/Vomiting clopidogrel [From Plavix] Allergy (Intermediate, Verified 02/21/23 08:19) Itching/Hives/Rash dabigatran etexilate [From Pradaxa] Allergy (Verified 02/21/23 08:19) Hives/Rash rivaroxaban [From Xarelto] Allergy (Verified 02/21/23 08:19) Hives/Rash Adhesives Allergy (Severe, Uncoded 02/21/23 08:19) Rash/Whelps Home medications list reviewed: Yes Home Medications: Meclizine HCl 12.5 mg PO BEDTIME MDD 25 06/05/20 Ramipril [Altace] 10 mg PO BEDTIME 06/05/20 Allopurinol 100 mg PO BEDTIME 06/06/21 Escitalopram Oxalate 20 mg PO BEDTIME 06/06/21 Levothyroxine [Synthroid*] 88 mcg PO BEDTIME 06/06/21 Sotalol HCl [Sotalol] 120 mg PO BEDTIME 06/06/21 Tamsulosin [Flomax*] 0.4 mg PO BEDTIME 06/06/21 Baclofen 10 mg PO BEDTIME 01/25/23 Gabapentin 3 tab PO BEDTIME 01/25/23 Pantoprazole [Protonix Tab*] 40 mg PO BEDTIME 01/25/23 Hydrocodone 7.5/APAP 325 [[place] 7.5/325 mg*] 1 tab PO Q6H PRN 02/20/23 Furosemide [Lasix] 40 mg PO DAILY #30 tab 11/01/23 - Past Medical/Surgical History Diabetic: No -: 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 eye surgery -: heart stents -: Hernia repair -: thyroid surgery -: Nerve re-channeling to R. arm -: apendectomy -: pacemaker Psychosocial/ Personal History: Patient is retired, lives at home with his - Family History Father Medical History: Heart disease, Kidney disease Notes: sacoidosis Mother Medical History: Heart disease Notes: dementia, alzheimers Brother Medical History: Heart disease, Stroke - Social History Smoking Status: Unknown if ever smoked Alcohol use: No CD- Drugs: No Caffeine use: Yes Place of Residence: Home Review of Systems 10-point ROS is otherwise unremarkable Physical Examination Temp Pulse Resp BP Pulse Ox 98.1 F 83 16 134/94 H 97 11/13/23 10:07 11/13/23 10:07 11/13/23 10:07 11/13/23 10:07 11/13/23 10:07 General: Alert, In no apparent distress HEENT: Atraumatic, PERRLA, Mucous membr. moist/pink, EOMI, Sclerae nonicteric Neck: Supple, 2+ carotid pulse no bruit, No LAD, Without JVD or thyroid abnormality Respiratory: Clear to auscultation bilaterally, Normal air movement Cardiovascular: Regular rate/rhythm, Normal S1 S2 Gastrointestinal: Normal bowel sounds, No tenderness Musculoskeletal: No tenderness Integumentary: No rashes Neurological: Normal gait, Normal speech, Normal tone, Normal affect Lymphatics: No axilla or inguinal lymphadenopathy Laboratory Data (last 24 hrs) 11/13/23 11/13/23 00:35 00:35 WBC 5.60 Hgb 10.0 L Hct 33.5 L Plt Count 234 Sodium 140 Potassium 4.1 BUN 22 H Creatinine 1.82 H Glucose 101 - Problems (1) Acute on chronic diastolic CHF (congestive heart failure) Onset Date: 02/01/18 Current Visit: No Status: Acute Plan: agree with Lasix 40 mg IV BID monitor input and output monitor and correct electrolytes (2) Atrial fibrillation Onset Date: 03/15/17 Current Visit: No Status: Chronic Plan: currently paced continue Sotalol patient is s/p recent ablation and watchman continue ASA 81 mg daily Qualifiers: (3) HTN (hypertension) Onset Date: 03/15/17 Current Visit: No Status: Chronic Plan: continue Rampril
[2023-11-13] MEDS: ramipriL 5 MG CAP PO SCH (20:21)
[2023-11-13] MEDS: BACLOFEN 10 MG TAB PO SCH (20:22)
[2023-11-13] MEDS: ESCITALOPRAM 20 MG TAB PO SCH (20:22)
[2023-11-13] MEDS: SOTALOL HCL 80 MG TAB PO SCH (20:22)
[2023-11-13] MEDS: TAMSULOSIN 0.4 MG SR CAP PO SCH (20:23)
[2023-11-13] MEDS: PANTOPRAZOLE 40MG TABLET PO SCH (20:23)
[2023-11-13] MEDS: GABAPENTIN 300 MG CAP PO SCH (20:23)
[2023-11-13] MEDS: allopurinoL 100 MG TAB PO SCH (20:23)
[2023-11-14] MEDS: MIDODRINE HCL 5 MG TABLET PO SCH ×2 (03:11→14:08)
[2023-11-14] MEDS: NA CHLORIDE 0.9% 500 ML IV ONE ×2 (04:18→04:55)
[2023-11-14] MEDS: NA CHLORIDE 0.9% 500 ML ONE (04:51)
--- NOTE | 2023-11-14 05:40 | P.PN ---
Date of Service: 11/14/23 Patient seen earlier in the night, doing well, down to 2 L/min nasal cannula O2 flow. Patient denies any complaint. Overnight patient noted to have progressively low BP. Given midodrine 5 mg with minimal response. Received 500 cc normal saline x 2 with still poor response in blood pressure. He has been transferred to ICU now. Will obtain CTA to further evaluate the heart and also rule out PE. Follow repeat troponin this a.m. start Levophed drip
[2023-11-14] MEDS: NOREPINEPHRINE BITARTRATE/D5W 4 MG/250 ML KIT IV ONE (06:02)
[2023-11-14] MEDS: NOREPINEPHRINE 4 MG in D5W 250 ML IV SCH (06:10)
--- NOTE | 2023-11-14 06:46 | P.PN ---
Date of Service: 11/14/23 Pt moved from floor to ICU secondary to hypotension. SBP on arrival to unit 69. Consent obtained for triple lumen central line. Levophed initiated temporarily via peripheral line while triple lumen placed to left groin per sterile technique. +blood return to all ports. Ports flushed with 0.9 NS. Area covered with hibiclens impregnated tegaderm. Pt tolerated well. Levophed moved to central line for infusion. BP 115/66.
--- NOTE | 2023-11-14 07:35 | P.PN ---
Date of Service: 11/14/23 Subjective: Overnight, blood pressure dropped. given midodrine and IVF with mild response so transferred to ICU and started on levo drip overnight / early this morning reports using oxygen at home in the past - describes being sent home with oxygen tank, but never got concentrator states he feels ok, doesn't feel like breathing has worsened ROS: 10 point ROS as noted above, otherwise negative Physical Exam: GEN: Alert, oriented, NAD HEENT: Normal conjunctiva, sclera anicteric CV: Regular rate and rhythm, no edema Pulm: non-labored respirations on 3L NC, diminished at bases bilaterally ABD: soft, nontender, nondistended Neuro: Normal speech, normal affect Problem List: Hypotension Acute diastolic CHF exacerbation History of A-fib s/p ablation, pacemaker and watchman MORRIS / CKD3 BPH Hypotension Overnight, patients BP dropped unknown etiology, possibly multifactorial secondary to diuresis / medication induced (given baclofen, gabapentin, lexapro last night ~same time) given midodrine and IVF with minimal response transferred to ICU overnight continue midodrine TID central line placed overnight and started on levo drip (11/13-) levo down to .05 this morning Troponins negative so far CTA chest ordered to r/o PE by flight control specialist; no worsening hypoxia with worsening renal function, will hold off on CTA for now hold antihypertensives for now. cardiology and nephrology consulted Acute diastolic CHF exacerbation on admission presents with worsening dyspnea, cough. Denies fever / chills CXR (11/12): interstitial pulmonary edema, cardiomegaly, small left pleural effusion, bilateral lower lobe atelectasis L > R most recent echo (10/31/23): 55-60%EF, mild left atrial enlargement, mod-severe TR, pulmonary hypertension repeat CXR in AM nephrology recommends lasix drip Cardiology consulted History of A-fib s/p ablation, pacemaker and watchman s/p recent ablation and watchman continue home sotalol rate controlled MORRIS / CKD3 continue to monitor renal function creatinine 1.82 -> 2.29 nephrology consulted - suspect cardiorenal and started lasix drip 11/13 BPH continue home flomax Code: Full Dispo: Home, ~2-3 days Pending BP improves/stable, off levo drip, further diuresis Time Spent Managing Pts Care (In Minutes): 50
[2023-11-14 08:09] LABS: Absolute Basophils 0.1 K/uL (0-0.5); Absolute Eosinophils 0.3 K/uL (0-0.5); Absolute Lymphocytes (CBC) 0.9 K/uL (0.7-4.9); Absolute Monocytes 0.6 K/uL (0.1-1.3); Absolute Neutrophil 6.1 K/uL (1.8-8.0); Eosinophils % 3.3 % (0-4.4); Hematocrit 32.3 % (39.6-49.0); Hemoglobin 9.9 g/dL (13.6-17.9); Lymphocytes % 11.8 % (15.3-44.8); MCH 26.5 pg (27.0-35.0); MCHC 30.8 g/dL (32.0-36.0); MCV 85.9 fL (80-100); Monocytes % 7.4 % (3.3-12.3); Neutrophils % 76.5 % (41.7-73.7); Nucleated Red Blood Cells % 0.1 % (0-0); Platelets 236 thou/uL (152-406); RBC Red Blood Cell Count 3.76 M/uL (4.33-5.43); Red Cell Distribution Width 28.4 % (12.1-15.2)
[2023-11-14 08:35] LABS: Albumin 2.9 g/dL (3.4-5.0); Albumin/Globulin Ratio 0.8 (1.1-1.8); Anion Gap 6.9 mEq/L (5.0-15.0); Bilirubin Total 0.6 mg/dL (0.2-1.0); Globulin 3.8 g/dL (2.3-3.5); Potassium 3.9 mEq/L (3.5-5.1); Protein, Total 6.7 g/dL (6.4-8.2); Troponin High Sensitivity 19.1 pg/mL (<58.9)
[2023-11-14] MEDS ORDERED: FUROSEMIDE 100 MG in NA CHLORIDE 0.9% 90 ML IV SCH (11:00)
--- NOTE | 2023-11-14 11:07 | RAD REPORT ---
EXAM DESCRIPTION: RAD - Chest Single View - 11/13/2023 1:00 am CLINICAL HISTORY: 68 years, Male, Dyspnea. COMPARISON: XR Chest 10/31/2023. FINDINGS: 1 view of the chest (AP portable projection) was obtained. Prior films were compared. Th ere is decreased lung volume. Mediastinum: The cardiomediastinal silhouette is stable in size and shape. There is a dual-lead pacem richar via left subclavian Lungs: Bilateral lower lobes zones demonstrate small linear densities perhaps corresponding to atelec tasis and/or less likely infiltrate. Heart: The heart is prominent. Thoracic aorta: The thoracic aorta demonstrate to be tortuous with intimal aortic arch calcification. Pulmonary vasculature: There is increased interstitial pulmonary markings suggesting the possibility of interstitial pulmonary edema. Pleura: Small left pleural effusion. Osseous structures: The bony structures demonstrate to be within normal limits. Other: External EKG leads within the [id number] limits diagnosis. IMPRESSION: Decreased lung volume. Bilateral lower lobe atelectasis and/or less likely infiltrate, slightly greater left than right. Small left pleural effusion. Cardiomegaly and interstitial pulmonary edema. Electronically signed by: Jimy Mello MD 11/13/2023 01:26 AM CDT RP Due to temporary technical issues with the PACS/Fluency reporting system, reports are being signed by the in house radiologist without review as a courtesy to ensure prompt reporting. The interpreting r adiologist is fully responsible for the content of the report.
[2023-11-14 11:23] LABS: Uric Acid 5.5 mg/dL (3.5-7.2)
[2023-11-14] MEDS: FUROSEMIDE 100 MG in NA CHLORIDE 0.9% 90 ML IV SCH (12:09)
--- NOTE | 2023-11-14 12:18 | CON ---
Date of Consultation: 11/14/2023 Reason For Consultation: Elevated BUN and creatinine, fluid management. History Of Present Illness: This is a pleasant 68-year-old gentleman with significant past medical history of chronic kidney disease, baseline creatinine 1.5, GFR of 50 as of September 2023, atrial fibrillation, CAD status post CABG, CVA, atrial fibrillation status post ICD, congestive heart failure, diastolic dysfunction with pulmonary hypertension, gastric bypass, the patient was in his regular state of health, came to the hospital complaining from shortness of breath. The patient found to have atrial fibrillation with RVR. The patient over the night had low blood pressure. For that reason, the patient was started on Levophed. The patient admitted that he been taking Advil 400 mg for the last 4 years on a daily basis. Past Medical History: Include: 1. CAD, complicated with congestive heart failure, diastolic dysfunction, atrial fibrillation, status post ICD. 2. CVA. 3. Brainstem hemorrhage. 4. Thyroid cancer, status post thyroidectomy. 5. Chronic kidney disease, baseline creatinine 1.5, GFR of 50. 6. Gout. 7. GERD. Past Surgical History: Include: 1. Gastric bypass. 2. Eye surgery. 3. ICD. 4. Hernia repair. 5. PTCA. 6. CABG. 7. Appendectomy. 8. Thyroidectomy. 9. ICD. Family History: Positive for hypertension and chronic kidney disease, CAD. Social History: Lives with family. Denied smoking. Denied drinking. Denied drugs abuse. Review of Systems: Head and Neck: No red eye. No ear pain. GI: Decreased intake. : No polyuria, no dysuria, no hematuria. BILLING MANAGER: Not applicable. Respiratory: Has shortness of breath. Cardiovascular: Has palpitation. Endocrine: No polydipsia. Skin: No rash. Neuro: Has neuropathy. Musculoskeletal: Generalized fatigue and low back pain. Physical Examination: Vital Signs: When I saw the patient, blood pressure 85/55. Chest: Crackles bilateral. Heart: S1, S2. Systolic murmur. Irregular. Abdomen: Soft, nontender. Extremity: Trace edema. Neuro: Alert. No focality. Moving 4 extremity . Laboratory Data: The patient as of before admission, hemoglobin 8.7 in September 2023, creatinine 1.5, GFR of 50 on this admission. Sodium 140, potassium 4.1, bicarb 33, BUN 22, creatinine 1.8, GFR of 40, calcium of 9. Today lab data; sodium 140, potassium 3.9, bicarb 34, BUN 28, creatinine 2.2, GFR of 30, calcium 8.8. The patient had workup before. BNP 1300. Troponin 434. Iron saturation 4.2, ferritin 4.1. WBC 7.9, hemoglobin 9.9. Urinalysis; specific gravity 1.030, negative for infection. Current Medications: The patient on include Flomax, Levophed, Tylenol, gabapentin 900 at bedtime, Lexapro, Tylenol, Zofran, levothyroxine. Assessment And Plan: 1. Acute kidney injury secondary to cardiorenal, over volume, poor perfusion, acute tubular necrosis. I am going to place the patient on Lasix drip and we will send for the workup and we will send for renal ultrasound, PTH, CK and uric acid with PC ratio and we will monitor the patient closely. 2. Cardiogenic shock with over volume, complicated with acute kidney injury secondary to poor perfusion, acute tubular necrosis, over volume. We will increase Levophed. We will start the patient on midodrine. We will follow up with Cardiology. 3. Hypertension, currently blood pressure on the lower side. Hold all blood pressure medications. Start the patient on Lasix drip. 4. Congestive heart failure with exacerbation as above. 5. Iron-deficiency anemia. Start the patient on IV iron. Time spent examining the patient [id number] reviewing the data and Lab and the radiology placing order discussing the case with the patient/ family discussing the case with the field marketing team leader including ICU nursing staff and hospitalist and nursing staff more than 75 minutes SANDRA Voice ID: [id number] Report ID: [id number] ZEHRA
[2023-11-14 15:43] LABS: Specific Gravity 1.013 (1.005-1.030); Sqamous Epithelial <5 /HPF (None Seen); Urine Bacteria <20 /HPF (<20); Urine Bilirubin NEGATIVE (Negative); Urine Blood Negative (Negative); Urine Clarity Turbid (Clear); Urine Color Light-Yellow (Yellow); Urine Crystals Unidentified Few /HPF (None Seen); Urine Culture Reflex Order NOT NEEDED; Urine Glucose NEGATIVE (Negative); Urine Ketones NEGATIVE (Negative); Urine Microscopic Reflex YN ORDER UMIC; Urine Mucus Slight /HPF (None Seen); Urine Nitrite NEGATIVE (Negative); Urine Protein NEGATIVE (Negative); Urine RBC <5 /HPF (None Seen); Urine Urobilinogen Normal (Normal); Urine WBC <5 /HPF (<5)
--- NOTE | 2023-11-14 17:29 | P.PN ---
Subjective Date of Service: 11/14/23 Chief Complaint: Shortness of breath Subjective: No new changes, No C/O voiced, Tolerating diet, Ambulating, Improving Review of Systems 10-point ROS is otherwise unremarkable Physical Examination - Vital Signs Temperature: 96.4 F Blood Pressure: 141/78 Pulse: 84 Respirations: 15 Pulse Ox (%): 99 - Physical Exam General: Alert, In no apparent distress HEENT: Atraumatic, PERRLA, EOMI Neck: Supple, JVD not distended Respiratory: Clear to auscultation bilaterally, Normal air movement Cardiovascular: Regular rate/rhythm, Normal S1 S2 Gastrointestinal: Normal bowel sounds, No tenderness Musculoskeletal: No tenderness Integumentary: No rashes Neurological: Normal speech, Normal tone, Normal affect Lymphatics: No axilla or inguinal lymphadenopathy - Studies Laboratory Data (last 24 hrs) 11/14/23 11/14/23 08:00 08:00 WBC 7.90 Hgb 9.9 L Hct 32.3 L Plt Count 236 Sodium 140 Potassium 3.9 BUN 28 H Creatinine 2.29 H Glucose 131 H Uric Acid 5.5 Total Bilirubin 0.6 AST 18 ALT 23 Alkaline Phosphatase 85 Medications List Reviewed: Yes Assessment And Plan - Current Problems (Diagnosis) (1) Acute on chronic diastolic CHF (congestive heart failure) Onset Date: 02/01/18 Current Visit: No Status: Acute Plan: continue Lasix drip monitor input and output monitor and correct electrolytes (2) Atrial fibrillation Onset Date: 03/15/17 Current Visit: No Status: Chronic Plan: currently paced continue Sotalol patient is s/p recent ablation and watchman continue ASA 81 mg daily Qualifiers: (3) HTN (hypertension) Onset Date: 03/15/17 Current Visit: No Status: Chronic Plan: Medications are on hold due to soft BP.
[2023-11-14 20:49] LABS: UR PROTEIN 25.4 mg/dL (<11.9); Urine Protein/Creatinine Ratio 0.24 ratio (<0.15)
[2023-11-14] MEDS: GABAPENTIN 300 MG CAP PO SCH (21:35)
[2023-11-14] MEDS: SOTALOL HCL 80 MG TAB PO SCH (21:36)
[2023-11-14] MEDS: FUROSEMIDE 100 MG/10 ML VIAL IV ONE (22:42)
[2023-11-14] MEDS: NA CHLORIDE 0.9% 100 ML ONE (22:42)
[2023-11-14] MEDS: HYDROCODONE/APAP 7.5/325 MG TAB PO PRN (22:50)
[2023-11-15 05:27] LABS: Hematocrit 34.2 % (39.6-49.0); Hemoglobin 10.5 g/dL (13.6-17.9); MCH 26.4 pg (27.0-35.0); MCHC 30.8 g/dL (32.0-36.0); MCV 85.8 fL (80-100); MPV 8.1 fL (7.6-11.3); Platelets 236 thou/uL (152-406); RBC Red Blood Cell Count 3.98 M/uL (4.33-5.43); Red Cell Distribution Width 28.6 % (12.1-15.2)
[2023-11-15 06:28] LABS: Albumin/Globulin Ratio 0.8 (1.1-1.8); Anion Gap 5.6 mEq/L (5.0-15.0); Bilirubin Total 0.5 mg/dL (0.2-1.0); Magnesium 1.8 mg/dL (1.6-2.4); Potassium 3.6 mEq/L (3.5-5.1)
--- NOTE | 2023-11-15 06:54 | P.PN ---
Date of Service: 11/15/23 Subjective: Weaned off Levophed overnight for few hours, and then had to be restarted Feels breathing is improving, overall feeling a bit more "rundown" Denies any new/worsening symptoms ROS: 10 point ROS as noted above, otherwise negative Physical Exam: GEN: Alert, oriented, fatigued appearing HEENT: Normal conjunctiva, sclera anicteric CV: Paced rhythm, trace edema Pulm: non-labored respirations on 3L NC at rest, diminished at bases bilaterally ABD: soft, nontender, nondistended Problem List: Hypotension Acute on chronic diastolic CHF exacerbation History of A-fib s/p ablation, pacemaker and watchman MORRIS / CKD3 BPH Hypotension patients BP dropped and transferred to icu overnight 11/12-11/13 unknown etiology, possibly multifactorial secondary to diuresis / medication induced (given baclofen, gabapentin, lexapro last night ~same time) given midodrine and IVF with minimal response - started levophed data collection interviewer 11/13, central line placed 11/13 AM titrating levo down Was briefly off Levophed last night and then blood pressure dropped. Timing may have had a component of medication contributing Troponins negative so far hold antihypertensives for now. Continue Levophed drip as needed, continue diuresis with Lasix drip Sotalol dosing adjusted by cardiology Acute on chronic diastolic CHF exacerbation on admission presents with worsening dyspnea, cough. Denies fever / chills CXR (11/12): interstitial pulmonary edema, cardiomegaly, small left pleural effusion, bilateral lower lobe atelectasis L > R most recent echo (10/31/23): 55-60%EF, mild left atrial enlargement, mod-severe TR, pulmonary hypertension repeat CXR with some improvement, patient also reports symptomatically improving Lasix drip started 11/13, recommended by nephrology History of A-fib s/p ablation, pacemaker and watchman s/p recent ablation and watchman Sotalol dosing adjusted to twice daily dosing on 11/13 rate controlled /paced rhythm MORRIS / CKD3 continue to monitor renal function creatinine 1.82 -> 2.29 nephrology consulted - suspect cardiorenal and started lasix drip 11/13 slight improvement down to 2.16 (11/14) BPH continue home flomax VTE: lovenox Code: Full Dispo: Home, ~2-3 days likely needs home O2 re-setup / concentrator, states has oxygen tank but ran out Pending BP improves/stable, off levo drip, further diuresis / renal fxn Time Spent Managing Pts Care (In Minutes): 50
[2023-11-15] MEDS: HEPARIN 5000 UNIT/ML 1 ML VIAL SQ SCH (07:56)
--- NOTE | 2023-11-15 08:07 | RAD REPORT ---
EXAM DESCRIPTION: RAD - Chest Single View - 11/15/2023 6:00 am CLINICAL HISTORY: SOB, f/u opacities Chest pain. COMPARISON: Chest Single View dated 11/13/2023; Chest Single View dated 10/31/2023; Chest Pa And Lat ( 2 Views) dated 01/25/2023; Chest Single View dated 04/25/2022 FINDINGS: Portable technique limits examination quality. Mild pulmonary edema is noted, mildly to moderately improved since 11/13/2023 study. The heart is mil dly prominent in size. Dual lead pacer device is present. IMPRESSION: There has been mild to moderate improvement in lung aeration since yesterday's study. Mi ld CHF likely persists.
--- NOTE | 2023-11-15 08:26 | RAD REPORT ---
EXAM DESCRIPTION: US - Renal Ultrasound-Complete - 11/14/2023 11:57 pm CLINICAL HISTORY: Acute Renal Failure Flank pain COMPARISON: Renal Ultrasound-Complete dated 06/05/2020 FINDINGS: Both kidneys are normal in size, shape and echotexture. The right kidney measures 8.7 x 5.0 x 4.6 cm. No hydronephrosis, focal mass or perinephric fluid. The left kidney measures 9.5 x 5.7 x 4.1 cm. No hydronephrosis, focal mass or perinephric fluid. The urinary bladder is incompletely distended without gross abnormality seen. IMPRESSION: Unremarkable renal sonogram.
--- NOTE | 2023-11-15 09:18 | P.PN ---
Subjective Date of Service: 11/15/23 Chief Complaint: Shortness of breath Subjective: No new changes, No C/O voiced, Tolerating diet, Ambulating, Improving Review of Systems 10-point ROS is otherwise unremarkable Physical Examination - Vital Signs Temperature: 97.9 F Blood Pressure: 102/56 Pulse: 87 Respirations: 15 Pulse Ox (%): 97 - Physical Exam General: Alert, In no apparent distress HEENT: Atraumatic, PERRLA, EOMI Neck: Supple, JVD not distended Respiratory: Clear to auscultation bilaterally, Normal air movement Cardiovascular: Regular rate/rhythm, Normal S1 S2 Gastrointestinal: Normal bowel sounds, No tenderness Musculoskeletal: No tenderness Integumentary: No rashes Neurological: Normal speech, Normal tone, Normal affect Lymphatics: No axilla or inguinal lymphadenopathy - Studies Laboratory Data (last 24 hrs) 11/14/23 08:00 Sodium 140 Potassium 3.9 BUN 28 H Creatinine 2.29 H Glucose 131 H Uric Acid 5.5 Total Bilirubin 0.6 AST 18 ALT 23 Alkaline Phosphatase 85 Medications List Reviewed: Yes Assessment And Plan - Current Problems (Diagnosis) (1) Acute on chronic diastolic CHF (congestive heart failure) Onset Date: 02/01/18 Current Visit: No Status: Acute Plan: continue Lasix drip monitor input and output monitor and correct electrolytes (2) Atrial fibrillation Onset Date: 03/15/17 Current Visit: No Status: Chronic Plan: currently paced continue Sotalol patient is s/p recent ablation and watchman continue ASA 81 mg daily Qualifiers: (3) HTN (hypertension) Onset Date: 03/15/17 Current Visit: No Status: Chronic Plan: Medications are on hold due to soft BP.
[2023-11-15] MEDS: FUROSEMIDE 100 MG in NA CHLORIDE 0.9% 90 ML IV SCH (10:07)
[2023-11-15] MEDS ORDERED: ALBUTEROL 2.5 MG/3 ML NEB SOL NEB PRN (17:34)
--- NOTE | 2023-11-15 18:22 | PN ---
Date of Progress Note: 11/15/2023 Subjective: The patient was admitted with acute kidney injury secondary to cardiorenal, nonsteroidal use. The patient overvolume, patient was placed on Lasix drip. Patient still pressor dependent. Objective: Vital Signs: Blood pressure 105/68, pulse of 83. Patient had good urine output of 3800, negative of 2100. The patient is still on nasal cannula. Chest: Crackles, bilateral. Heart: S1, S2. Systolic murmur. Irregular. Abdomen: Soft, nontender. Extremity: Trace edema. Neurologic: Alert. No focality. Laboratory Data: Hemoglobin 10.5, sodium 136, potassium 3.6, bicarb 36, BUN of 32, creatinine 2.1, m arginal improvement from yesterday. GFR of 32, calcium 9, magnesium 1.8. Chest x-ray, improvement c ompared to yesterday. Current Medications: The patient on, it includes: 1.Levophed. 2.Sotalol 80 b.i.d. 3.Lexapro. 4.Gabapentin. 5.Lasix drip. 6.Levothyroxine. 7.Midodrine 10 t.i.d. Assessment And Plan: 1.Acute kidney injury secondary to cardiorenal, superimposed with nonsteroidal use, nonoliguric, ove rvolume. I am going to continue the patient on diuresis and we will continue Levophed and midodrine. I am going to go ahead and send for cortisol level. We will follow up. 2.Hypokalemia, hypomagnesemia. We will supplement. 3.Hyponatremia secondary to dilutional. Continue diuresis. 4.Cardiogenic shock secondary to congestive heart failure with exacerbation complicated with congest riya heart failure exacerbation and acute kidney injury secondary to poor perfusion acute tubular necr osis. I am going to go ahead and continue pressor. Follow up with Primary. 5.Congestive heart failure with exacerbation, as above. PRESLEY/NATASHA Voice ID: [id number] Report ID: [id number]
[2023-11-15] MEDS: Magnesium Sulfate 2gm IVPB 2 G/50 ML BAG IV ONE ×2 (19:10→19:18)
[2023-11-15] MEDS: POTASSIUM 25 MEQ EFFERV TAB ONE (19:11)
[2023-11-15] MEDS: POTASSIUM 25 MEQ EFFERV TAB PO ONE (19:18)
[2023-11-16 05:24] LABS: Hemoglobin 10.9 g/dL (13.6-17.9); MCH 26.8 pg (27.0-35.0); MCHC 31.1 g/dL (32.0-36.0); MPV 7.7 fL (7.6-11.3); Platelets 231 thou/uL (152-406); RBC Red Blood Cell Count 4.07 M/uL (4.33-5.43); Red Cell Distribution Width 28.3 % (12.1-15.2)
[2023-11-16 05:48] LABS: Albumin 3.1 g/dL (3.4-5.0); Albumin/Globulin Ratio 0.8 (1.1-1.8); Anion Gap 7.7 mEq/L (5.0-15.0); Bilirubin Total 0.4 mg/dL (0.2-1.0); Magnesium 2.2 mg/dL (1.6-2.4); Potassium 3.7 mEq/L (3.5-5.1); Protein, Total 7.1 g/dL (6.4-8.2)
--- NOTE | 2023-11-16 08:15 | P.PN ---
Date of Service: 11/16/23 Subjective: feeling better today felt run down yesterday feels breathing is improving still on levophed ROS: 10 point ROS as noted above, otherwise negative Physical Exam: GEN: Alert, oriented, NAD CV: Paced rhythm, no pedal edema Pulm: non-labored respirations on 2L NC at rest, diminished at bases bilaterally ABD: soft, nontender, nondistended Problem List: Cardiogenic Shock Acute on chronic diastolic CHF exacerbation History of A-fib s/p ablation, pacemaker and watchman MORRIS / CKD3 BPH Cardiogenic Shock patients BP dropped and transferred to icu 11/12-11/13 Suspect cardiogenic shock, secondary to acute on chronic CHF exacerbation / MORRIS / poor perfusion acute tubular necrosis given midodrine and IVF with minimal response - 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 Timing may have had a component of medication contributing Troponins negative so far hold antihypertensives for now. Continue Levophed drip as needed, continue diuresis with Lasix drip Sotalol dosing adjusted by cardiology - to 5mg/hr 11/15 Acute on chronic diastolic CHF exacerbation on admission presents with worsening dyspnea, cough. Denies fever / chills CXR (11/12): interstitial pulmonary edema, cardiomegaly, small left pleural effusion, bilateral lower lobe atelectasis L > R most recent echo (10/31/23): 55-60%EF, mild left atrial enlargement, mod-severe TR, pulmonary hypertension repeat CXR with some improvement, patient also reports symptomatically improving Lasix drip started 11/13, recommended by nephrology History of A-fib s/p ablation, pacemaker and watchman s/p recent ablation and watchman continue Sotalol; increased to BID from daily 11/13 rate controlled / paced rhythm MORRIS / CKD3 MORRIS secondary to cardiorenal / NSAID use nephrology consulted continue lasix drip; started 11/13 improving BPH continue home flomax VTE: lovenox Code: Full Dispo: Home, ~3 days likely needs home O2 re-setup / concentrator, states has oxygen tank but ran out Pending BP improves/stable, off levo drip, further diuresis / renal fxn Time Spent Managing Pts Care (In Minutes): 40
--- NOTE | 2023-11-16 14:21 | P.PN ---
Subjective Date of Service: 11/16/23 Chief Complaint: Shortness of breath Subjective: No new changes, No C/O voiced, Tolerating diet, Ambulating, Improving Review of Systems 10-point ROS is otherwise unremarkable Physical Examination - Vital Signs Temperature: 97.4 F Blood Pressure: 92/64 Pulse: 83 Respirations: 15 Pulse Ox (%): 97 - Physical Exam General: Alert, In no apparent distress HEENT: Atraumatic, PERRLA, EOMI Neck: Supple, JVD not distended Respiratory: Clear to auscultation bilaterally, Normal air movement Cardiovascular: Regular rate/rhythm, Normal S1 S2 Gastrointestinal: Normal bowel sounds, No tenderness Musculoskeletal: No tenderness Integumentary: No rashes Neurological: Normal speech, Normal tone, Normal affect Lymphatics: No axilla or inguinal lymphadenopathy - Studies Medications List Reviewed: Yes Assessment And Plan - Current Problems (Diagnosis) (1) Acute on chronic diastolic CHF (congestive heart failure) Onset Date: 02/01/18 Current Visit: No Status: Acute Plan: Lower Lasix drip to 5 mg/hr monitor input and output monitor and correct electrolytes (2) Atrial fibrillation Onset Date: 03/15/17 Current Visit: No Status: Chronic Plan: currently paced continue Sotalol patient is s/p recent ablation and watchman continue ASA 81 mg daily Qualifiers: (3) HTN (hypertension) Onset Date: 03/15/17 Current Visit: No Status: Chronic Plan: Medications are on hold due to soft BP. continue Midodrine
[2023-11-16] MEDS ORDERED: FUROSEMIDE 100 MG in NA CHLORIDE 0.9% 90 ML IV SCH (15:00)
[2023-11-16] MEDS: FUROSEMIDE 100 MG in NA CHLORIDE 0.9% 90 ML IV SCH (20:54)
[2023-11-17 05:47] LABS: Albumin/Globulin Ratio 0.7 (1.1-1.8); Anion Gap 5.6 mEq/L (5.0-15.0); Bilirubin Total 0.5 mg/dL (0.2-1.0); Globulin 4.2 g/dL (2.3-3.5); Magnesium 2.2 mg/dL (1.6-2.4); Potassium 3.6 mEq/L (3.5-5.1); Protein, Total 7.2 g/dL (6.4-8.2)
--- NOTE | 2023-11-17 07:26 | P.PN ---
Date of Service: 11/17/23 Subjective: feels better compared to few days ago remains on levo no acute events overnight 800ml UOP overnight ROS: 10 point ROS as noted above, otherwise negative Physical Exam: GEN: Alert, oriented, fatigued appearing CV: Paced rhythm, no pedal edema Pulm: non-labored respirations on 2L NC at rest, diminished at bases bilaterally ABD: soft, nontender, nondistended Problem List: Cardiogenic Shock Acute on chronic diastolic CHF exacerbation Hx of A-fib s/p ablation, pacemaker and watchman MORRIS / CKD3 BPH Hx of CAD, s/p CABG Hx thyroid cancer, s/p thyroidectomy hx gout hx prior CVA Cardiogenic Shock patients BP dropped and transferred to icu 11/12-11/13 Suspect cardiogenic shock, secondary to acute on chronic CHF exacerbation / MORRIS / poor perfusion acute tubular necrosis given midodrine and IVF with minimal response - 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 seems to be more hypotensive after midnight, possibly from meds partially contributing decreased gabapentin, also on flomax which can contribute Troponins negative hold antihypertensives Continue Levophed drip as needed, continue diuresis with Lasix drip lasix drip dosing adjusted by cardiology - to 5mg/hr 11/15 Acute on chronic diastolic CHF exacerbation on admission presents with worsening dyspnea, cough. Denies fever / chills CXR (11/12): interstitial pulmonary edema, cardiomegaly, small left pleural effusion, bilateral lower lobe atelectasis L > R most recent echo (10/31/23): 55-60%EF, mild left atrial enlargement, mod-severe TR, pulmonary hypertension repeat CXR with some improvement, patient also reports symptomatically improving Lasix drip started 11/13, recommended by nephrology CXR ordered to reeval Hx of A-fib s/p ablation, pacemaker and watchman s/p recent ablation and watchman continue Sotalol; increased to BID from daily 11/13 improved rate controlled / paced rhythm MORRIS / CKD3 MORRIS secondary to cardiorenal / NSAID use; nephrology following improving continue lasix drip; started 11/13 BPH continue home flomax VTE: lovenox Code: Full Dispo: Home, ~2-3 days likely needs home O2 re-setup / concentrator, states has oxygen tank but ran out Pending BP improves/stable, off levo drip, further diuresis / renal fxn Time Spent Managing Pts Care (In Minutes): 40
--- NOTE | 2023-11-17 09:20 | RAD REPORT ---
EXAM DESCRIPTION: [place] Single View11/17/2023 8:51 am CLINICAL HISTORY: Chest pain COMPARISON: 2018 FINDINGS: Calcified granulomas are present within the lungs. Mild bilateral pulmonary opacities have resolved The heart is mildly enlarged. Pacemaker leads are in place. IMPRESSION: No acute abnormalities displayed
--- NOTE | 2023-11-17 13:53 | P.PN ---
Subjective Date of Service: 11/17/23 Chief Complaint: Shortness of breath Subjective: No new changes, No C/O voiced, Tolerating diet, Ambulating, Improving Review of Systems 10-point ROS is otherwise unremarkable Physical Examination - Vital Signs Temperature: 96.8 F Blood Pressure: 85/54 Pulse: 83 Respirations: 19 Pulse Ox (%): 99 - Physical Exam General: Alert, In no apparent distress HEENT: Atraumatic, PERRLA, EOMI Neck: Supple, JVD not distended Respiratory: Clear to auscultation bilaterally, Normal air movement Cardiovascular: Regular rate/rhythm, Normal S1 S2 Gastrointestinal: Normal bowel sounds, No tenderness Musculoskeletal: No tenderness Integumentary: No rashes Neurological: Normal speech, Normal tone, Normal affect Lymphatics: No axilla or inguinal lymphadenopathy - Studies Medications List Reviewed: Yes Assessment And Plan - Current Problems (Diagnosis) (1) Acute on chronic diastolic CHF (congestive heart failure) Onset Date: 02/01/18 Current Visit: No Status: Acute Plan: Patient responded well to IV diuresis, looks euvolemic on exam now Switch Lasix to 40 mg po daily monitor input and output monitor and correct electrolytes (2) Atrial fibrillation Onset Date: 03/15/17 Current Visit: No Status: Chronic Plan: currently paced continue Sotalol patient is s/p recent ablation and watchman continue ASA 81 mg daily Qualifiers: (3) HTN (hypertension) Onset Date: 03/15/17 Current Visit: No Status: Chronic Plan: Medications are on hold due to soft BP. continue Midodrine Primary team to consider starting Fludrocortisone 0.1 mg daily to help with pat ient hypotension.
[2023-11-17] MEDS: LACTULOSE 20 GM/30 ML UCUP PO ONE (20:31)
--- NOTE | 2023-11-17 20:33 | PN ---
Date of Progress Note: 11/17/2023 Subjective: The patient was admitted with acute kidney injury secondary to cardiorenal syndrome and nonsteroidal anti-inflammatory medication complication. The patient has fluid overload, anasarca, an d was started on Lasix drip. The patient was pressors dependent. He remains in ICU. Review of Systems: Denies chest pain, palpitation. Physical Examination: Lungs: Bilateral crackles. Heart: S1, S2. 2/6 systolic murmur at left lower sternal border. Irregularly irregular. Abdomen: Soft, nontender. Extremities: Edema present in both legs. Impression And Plan: 1.Acute on chronic kidney injury secondary to cardiorenal syndrome superimposed with nonsteroidal an ti-inflammatory medication effect. The patient remains nonoliguric and is responding to IV drips wit h Lasix. The patient remained fluid overloaded. He has had decompensated congestive heart failure a nd required Levophed and midodrine for blood pressure support. Continue current treatment with Lasix drip and cortisol level was sent to rule out adrenal insufficiency. 2.Hypokalemia, hypomagnesemia, supplementation according to blood work results. 3.Hyponatremia secondary to dilutional effect of fluid overload. Continue diuresis with Lasix. 4.Cardiogenic shock secondary to congestive heart failure with exacerbation complicated with acute k idney injury, cardiorenal syndrome with acute tubular necrosis. Continue pressors. Continue diureti c, low-sodium diet and p.o. fluid restriction. 5.Congestive heart failure exacerbation. Cardiology was consulted. Further workup per licensed club manager . BRY/NATASHA Voice ID: [id number] Report ID: [id number]
[2023-11-17] MEDS: ALBUMIN HUMAN 25% 50 ML IV ONE (20:38)
[2023-11-18 06:15] LABS: Hematocrit 33.9 % (39.6-49.0); Hemoglobin 10.6 g/dL (13.6-17.9); MCH 26.6 pg (27.0-35.0); MCHC 31.2 g/dL (32.0-36.0); MCV 85.2 fL (80-100); MPV 8.1 fL (7.6-11.3); Platelets 184 thou/uL (152-406); RBC Red Blood Cell Count 3.97 M/uL (4.33-5.43); Red Cell Distribution Width 27.5 % (12.1-15.2)
[2023-11-18 06:26] LABS: Anion Gap 5.6 mEq/L (5.0-15.0); Magnesium 2.4 mg/dL (1.6-2.4); Potassium 3.6 mEq/L (3.5-5.1)
--- NOTE | 2023-11-18 06:58 | P.PN ---
Date of Service: 11/18/23 Subjective: feels breathing is a little easier today titrating levo down no issues overnight denies any new issues ROS: 10 point ROS as noted above, otherwise negative Physical Exam: GEN: Alert, orientedx3, NAD CV: Paced rhythm, no pedal edema Pulm: non-labored respirations on 2L NC at rest, diminished at bases bilaterally ABD: soft, nontender, nondistended Problem List: Cardiogenic Shock Acute on chronic diastolic CHF exacerbation Hx of A-fib s/p ablation, pacemaker and watchman MORRIS / CKD3 BPH Hx of CAD, s/p CABG Hx thyroid cancer, s/p thyroidectomy hx gout hx prior CVA Cardiogenic Shock patients BP dropped and transferred to icu 11/12-11/13 Suspect cardiogenic shock, secondary to acute on chronic CHF exacerbation / MORRIS / poor perfusion acute tubular necrosis given midodrine and IVF with minimal response initially- started levophed preanalytics team lead 11/13, central line placed 11/13 AM Weaning Levophed, anticipating coming off today decreased gabapentin, also on flomax which can contribute to hypotension Troponins negative hold antihypertensives since s/p Lasix drip (11/13-11/16); transition to PO lasix 40 mg daily 11/17 Acute on chronic diastolic CHF exacerbation on admission presents with worsening dyspnea, cough. Denies fever / chills most recent echo (10/31/23): 55-60%EF, mild left atrial enlargement, mod-severe TR, pulmonary hypertension 4 CXR (11/12): pulm edema, cardiomegaly, small L pleural effusion, b/l atelectasis L > R repeat CXR (11/16): Bilateral opacities resolved. s/p Lasix drip (11/13-11/16); transition to PO lasix 40 mg daily 11/17 Euvolemic Hx of A-fib s/p ablation, pacemaker and watchman s/p recent ablation and watchman continue Sotalol; increased to BID from daily 11/13 improved rate controlled / paced rhythm MORRIS / CKD3 MORRIS secondary to cardiorenal / NSAID use; nephrology following improving; s/p lasix drip; continue PO lasix 11/17 BPH continue home flomax VTE: lovenox Code: Full Dispo: Home, ~2 days likely needs home O2 re-setup / concentrator, states has oxygen tank but ran out Pending BP improves/stable, off levo drip Time Spent Managing Pts Care (In Minutes): 40
[2023-11-18] MEDS: FUROSEMIDE 40 MG TABLET PO SCH (08:23)
--- NOTE | 2023-11-18 22:09 | PN ---
Date of Progress Note: 11/18/2023 Subjective: The patient is admitted to the hospital because of acute kidney injury secondary to card iorenal syndrome and nonsteroidal anti-inflammatory medication complication. The patient has fluid o verload, anasarca, and was started on Lasix drip. He remains nonoliguric, responding to Lasix drip. Renal function is plateauing. He remains in ICU. Review of Systems: Denies chest pain, palpitation. Objective: Lungs: Bilateral crackles. Heart: S1, S2. 2/6 systolic murmur at left lower sternal border. Abdomen: Soft, benign, nontender. Extremities: Slight edema in both legs. Impression And Plan: 1.Acute on chronic kidney injury secondary to cardiorenal syndrome superimposed with nonsteroidal an ti-inflammatory medication effect. The patient remains nonoliguric and is responding to IV drips wit h Lasix. Continue current treatment. Monitor electrolytes closely and continue to supplement potass ium and magnesium according to lab, resolved. The patient has had decompensated congestive heart jorge lure and required Levophed and midodrine for blood pressure support. Continue midodrine and wean off Levophed according to blood pressure log. Cortisol level was sent to rule out adrenal insufficiency . Monitor labs. 2.Hypokalemia, hypomagnesemia supplementation according to blood work, resolved. Hyponatremia secon apple to dilutional effect of fluid overload and cardiorenal syndrome. Continue diuresis with Lasix. 3.Cardiogenic shock secondary to congestive heart failure with exacerbation complicated with acute k idney injury, cardiorenal syndrome and acute tubular necrosis with nonoliguric patterns. Continue pr essors. Continue diuretic and low-sodium diet and p.o. fluid restriction. Monitor cortisol level. Check TSH level. 4.Congestive heart failure exacerbation. Workup per Cardiology as needed. EB/MODL Voice ID: [id number] Report ID: [id number]
[2023-11-19 06:27] LABS: Anion Gap 3.7 mEq/L (5.0-15.0); Magnesium 2.3 mg/dL (1.6-2.4); Potassium 3.7 mEq/L (3.5-5.1); Thyroid Stimulating Hormone 10.2 uIU/mL (0.358-3.740)
[2023-11-19] MEDS: NA CHLORIDE 0.9% 100 ML ONE (07:30)
--- NOTE | 2023-11-19 08:41 | P.PN ---
Date of Service: 11/19/23 Subjective: off levo since yesterday morning Feeling better; breathing improving daily urinating without issues no issues overnight ROS: 10 point ROS as noted above, otherwise negative Physical Exam: GEN: Alert, orientedx3, NAD CV: Paced rhythm, no pedal edema Pulm: non-labored respirations on 2L NC at rest, clear ABD: soft, nontender, nondistended Problem List: Cardiogenic Shock, resolved Acute on chronic diastolic CHF exacerbation Hx of A-fib s/p ablation, pacemaker and watchman MORRIS / CKD3 BPH Hx of CAD, s/p CABG Hx thyroid cancer, s/p thyroidectomy hx gout hx prior CVA Cardiogenic Shock, resolved patients BP dropped and transferred to icu 11/12-11/13 Suspect cardiogenic shock, secondary to acute on chronic CHF exacerbation / MORRIS / poor perfusion acute tubular necrosis given midodrine and IVF with minimal response initially- 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 Denies fever / chills most recent echo (10/31/23): 55-60%EF, mild left atrial enlargement, mod-severe TR, pulmonary hypertension CXR (11/12): pulm edema, cardiomegaly, small L pleural effusion, b/l atelectasis L > R repeat CXR (11/16): Bilateral opacities resolved. s/p Lasix drip (11/13-11/16); continue PO lasix 40 mg daily Euvolemic Hx of A-fib s/p ablation, pacemaker and watchman s/p recent ablation and watchman continue Sotalol; increased to BID from daily 11/13 improved rate controlled / paced rhythm MORRIS / CKD3 MORRIS secondary to cardiorenal / NSAID use; nephrology following improving; s/p lasix drip; continue PO lasix 40 mg daily BPH continue home flomax VTE: lovenox Code: Full Dispo: Home, ~2 days likely needs home O2 re-setup / concentrator, states has oxygen tank but ran out Time Spent Managing Pts Care (In Minutes): 40
--- NOTE | 2023-11-19 21:05 | PN ---
Date of Progress Note: 11/19/2023 Subjective: Seen at bedside. Doing clinically well or better. Still with generalized fatigue and w eakness, but there is no shortness of breath or palpitations and he has been in sinus rhythm. Review of Systems: No chest pain, shortness of breath, orthopnea, cough. No nausea, vomiting, diarrhea, but he is gener ally very weak. All other systems reviewed are negative. Physical Examination: Vital Signs: Reviewed. Heart rate is 80, blood pressure is 117/72, breathing at 18, and afebrile. Head and Neck: Pupils are equal, reactive to light. Intact eye movements. No JVD. No cervical lym phadenopathy. Neck supple. Thyroid is not enlarged. Lungs: Clear to auscultation bilaterally. No rhonchi, rales, or crackles. No accessory muscle use. Heart: Regular rate and rhythm. No extra sounds. Abdomen: Soft, nontender. Bowel sounds positive. No organomegaly. No mass or hernia. No rigidity or rebound. Extremities: No edema, clubbing, cyanosis. Intact pulses. Skin: No rash. Neurologic: Alert, awake, oriented x3. No acute focal deficits appreciated. Investigations: BUN is 49, creatinine 1.67. Hemoglobin is 10. Assessment/recommendation: 1.Acute on chronic diastolic heart failure exacerbation. Appears to be improving very well. Appear s to be euvolemic. Recommend to continue Lasix by mouth daily and adjust as needed. 2.Atrial fibrillation. He is in sinus. Continue sotalol and recommend to start Eliquis 2.5 mg twic e a day. 3.Acute renal failure due to congestive heart failure, improving. 4.Hypothyroidism. Levothyroxine was started. Carefully monitor TSH. If he gets into over thyroid condition that will put him back in atrial fibrillation. SR/MODL Voice ID: [id number] Report ID: [id number]
--- NOTE | 2023-11-20 00:44 | PN ---
Date of Progress Note: 11/19/2023 History: The patient is admitted to the hospital because of acute kidney injury secondary to cardior enal syndrome and non-steroidal antiinflammatory medication complication. The patient has fluid over load, anasarca. He was started on Lasix drip. He remains non-oliguric and he responded to Lasix dri p and currently he is on p.o. Lasix. Review of Systems: Denies chest pain, palpitations. Physical Examination: Lungs: Crackles bilaterally at bases. Heart: S1, S2. Abdomen: Soft. Extremities: Minimal extremity edema. Impression And Plan: 1.Acute on chronic kidney injury secondary to cardiorenal syndrome superimposed with nonsteroidal an ti-inflammatory medication effect. The patient remains nonoliguric. He responded to IV Lasix drip. Continue treatment with maintenance Lasix p.o. The patient denies PND or orthopnea. He is clinical ly stable. The patient required Levophed and midodrine for blood pressure support. He was weaned of f Levophed. Currently, is on midodrine. Continue current treatment. 2.Hypokalemia, hypomagnesemia, supplementation according to blood work. Continue to monitor. 3.Hyponatremia secondary to fluid overload and cardiorenal syndrome. Continue p.o. fluid restrictio n and Lasix. 4.Cardiogenic shock secondary to congestive heart failure exacerbation complicated with acute kidney injury with acute tubular necrosis with nonoliguric pattern. Continue to monitor blood pressure. Check TSH. EB/MODL Voice ID: [id number] Report ID: [id number]
[2023-11-20 08:12] LABS: Hematocrit 34.4 % (39.6-49.0); Hemoglobin 10.5 g/dL (13.6-17.9); MCH 26.5 pg (27.0-35.0); MCHC 30.5 g/dL (32.0-36.0); MCV 86.8 fL (80-100); MPV 8.3 fL (7.6-11.3); Platelets 153 thou/uL (152-406); RBC Red Blood Cell Count 3.97 M/uL (4.33-5.43); Red Cell Distribution Width 27.3 % (12.1-15.2)
[2023-11-20 08:24] LABS: Albumin 2.9 g/dL (3.4-5.0); Anion Gap 4.7 mEq/L (5.0-15.0); Magnesium 2.2 mg/dL (1.6-2.4); Phosphorus 3.4 mg/dL (2.5-4.9); Potassium 3.7 mEq/L (3.5-5.1)
[2023-11-20 09:05] LABS: Anisocytosis 1+; Blood Morphology Comment NOTED (NOT SEEN); Platelet Estimate ADEQ; White Blood Cell Scan OK (OK)
[2023-11-20] MEDS: POTASSIUM 25 MEQ EFFERV TAB PO ONE (11:11)
--- NOTE | 2023-11-20 11:54 | PN ---
Date of Progress Note: 11/20/2023 Subjective: The patient was admitted to the hospital with acute kidney injury secondary to cardioren al. Patient back to his baseline. Patient require pressor. Patient feeling better. Objective: Vital Signs: Blood pressure 121/54, pulse of 85, afebrile. Chest: Clear to auscultation. Heart: S1, S2. Regular. Abdomen: Soft, nontender. Extremity: No edema. Neurologic: Alert. No focality. The patient had good urine output of 1500. Laboratory Data: Sodium 136, potassium 3.7, bicarb 38, BUN 50, creatinine down to 1.5 at his baselin e, GFR of 49, calcium 9.6, phosphorus 3.4, magnesium 2.2, albumin 2.9, corrected calcium 10.4. Current Medications: The patient on, include albuterol, midodrine 10 t.i.d., Flomax, gabapentin, Las ix 40 daily, pantoprazole, allopurinol, levothyroxine. Assessment And Plan: 1.Acute kidney injury secondary to cardiorenal, recovered, resolved. I am going to continue current diuresis dose. 2.Hypertension, controlled, optimal. I will go ahead and decrease his midodrine to 5 mg t.i.d., and we will follow up the patient. 3.Atrial fibrillation with congestive heart failure with exacerbation. Follow up with Cardiology. Continue current Lasix dose. 4.Cardiogenic shock, recovered, resolved. Taper down midodrine. 5.Hypokalemia, hypomagnesemia. I will supplement. SANDRA Voice ID: [id number] Report ID: [id number]
[2023-11-20] MEDS: MIDODRINE HCL 5 MG TABLET PO SCH (14:27)
--- NOTE | 2023-11-20 17:35 | P.PN ---
Subjective Date of Service: 11/20/23 Chief Complaint: Shortness of breath Patient reports generalized weakness and complaining of loss of muscle mass in his thighs. He denies shortness of breath. He denies orthopnea. Patient denies any chest pain. No recorded fever. He is tolerating diet. Patient is currently on 2 L oxygen by nasal cannula with good oxygen saturation at rest. Physical Examination - Vital Signs Temperature: 97.6 F Blood Pressure: 135/73 Pulse: 83 Respirations: 16 Pulse Ox (%): 98 - Studies Medications List Reviewed: Yes Assessment And Plan - Plan Physical Exam: GEN: Alert, orientedx3, NAD HEENT: Oxygen by nasal cannula CV: Paced rhythm, no pedal edema Pulm: Clear to auscultation, no rhonchi or wheezes or rales ABD: soft, nontender, nondistended Extremities: No swelling, no tenderness Problem List: Cardiogenic Shock, resolved Acute on chronic diastolic CHF exacerbation Hx of A-fib s/p ablation, pacemaker and watchman MORRIS / CKD3 BPH Hx of CAD, s/p CABG Hx thyroid cancer, s/p thyroidectomy hx gout hx prior CVA Cardiogenic Shock, resolved patients BP dropped and transferred to icu 11/12-11/13 Associated MORRIS. Status post midodrine and Levophed. Medications also contributing to hypotension. Troponins negative antihypertensives held since admission s/p Lasix drip (11/13-11/16). PT eval Acute on chronic diastolic CHF exacerbation most recent echo (10/31/23): 55-60%EF, mild left atrial enlargement, mod-severe TR, pulmonary hypertension CXR (11/12): pulm edema, cardiomegaly, small L pleural effusion, b/l atelectasis L > R Repeat CXR (11/16): Bilateral opacities resolved. s/p Lasix drip (11/13-11/16) continue PO lasix 40 mg daily Currently appears compensated for CHF Hx of A-fib s/p ablation, pacemaker and watchman Stable s/p recent ablation and watchman continue Sotalol; increased to BID from daily 11/13 MORRIS / CKD3 MORRIS secondary to cardiorenal / NSAID use; nephrology following Renal function improved and close to baseline. S/p lasix drip; continue PO lasix 40 mg daily and monitor renal BPH continue home flomax Critical care induced myopathy Continue PT Anticipating SNF versus acute rehab placement. VTE: lovenox Code: Full
[2023-11-21 05:15] LABS: Absolute Eosinophils 0.1 K/uL (0-0.5); Absolute Lymphocytes (CBC) 0.8 K/uL (0.7-4.9); Absolute Monocytes 0.9 K/uL (0.1-1.3); Absolute Neutrophil 4.1 K/uL (1.8-8.0); Basophils % 0.7 % (0-1.3); Hematocrit 31.7 % (39.6-49.0); Lymphocytes % 13.3 % (15.3-44.8); MCH 27.2 pg (27.0-35.0); MCHC 31.5 g/dL (32.0-36.0); MCV 86.3 fL (80-100); MPV 8.2 fL (7.6-11.3); Platelets 171 thou/uL (152-406); RBC Red Blood Cell Count 3.67 M/uL (4.33-5.43)
[2023-11-21 05:18] LABS: Red Cell Distribution Width 26.6 % (12.1-15.2)
[2023-11-21 05:36] LABS: Anion Gap 7.7 mEq/L (5.0-15.0); Potassium 3.7 mEq/L (3.5-5.1)
--- NOTE | 2023-11-21 12:36 | PN ---
Date of Progress Note: 11/21/2023 Subjective: The patient was admitted to the hospital with acute kidney injury secondary to cardioren al. The patient responding today to diuresis. The patient is on room air. Physical Examination: Vital Signs: Blood pressure 107/65, pulse of 84, afebrile. Chest: Clear to auscultation. Heart: S1, S2 regular. Abdomen: Soft, nontender. Extremities: No edema. Neurologic: Alert. No focality. Laboratory Data: Hemoglobin 10. Sodium 137, potassium 3.7, bicarb 37, BUN 55, creatinine 1.7, calci um 9.4. Current Medications: The patient is on include midodrine, Flomax, sotalol, citalopram, gabapentin 30 0 at bedtime, Lasix 40, levothyroxine, allopurinol, KCl. Assessment And Plan: 1.Acute kidney injury secondary to cardiorenal, creatinine bounce back. I am going to go ahead and decrease Lasix to 20 mg and I will get chest x-ray for better evaluation of the fluid status and we w ill monitor the patient. 2.Hypertension, controlled, optimal. Continue current treatment. 3.Atrial fibrillation as by primary. 4.Cardiogenic shock, recovered, resolved. 5.Hypokalemia. We will continue supplement. 6.Congestive heart failure with exacerbation, decrease diuresis. Time spent examining the patient [id number], reviewing data, lab, and radiology, placing order, dis cussing the case with the patient, discussing the case with the forensics team director including hospitalist and nursing staff more than 75 minutes . SANDRA Voice ID: [id number] Report ID: [id number]
--- NOTE | 2023-11-21 16:25 | RAD REPORT ---
EXAM DESCRIPTION: [facility] Single View11/21/2023 4:00 pm CLINICAL HISTORY: sob COMPARISON: November 17, 2023 FINDINGS: Left lung is mildly hazy Right lung appears clear of acute infiltrate. Heart is mildly enlarged. Pacemaker leads in place IMPRESSION: Left lung is mildly hazy which may indicate atelectasis or infiltrate
--- NOTE | 2023-11-21 18:01 | P.PN ---
Subjective Date of Service: 11/21/23 Chief Complaint: Shortness of breath Patient states he feels much stronger today compared to yesterday. He denies shortness of breath. He denies orthopnea. Patient denies any chest pain. No recorded fever. He is tolerating diet. Patient ambulated 250 ft during PT today. Physical Examination - Vital Signs Temperature: 97.8 F Blood Pressure: 98/67 Pulse: 81 Respirations: 15 Pulse Ox (%): 100 - Studies Medications List Reviewed: Yes Assessment And Plan - Plan Physical Exam: GEN: Alert, orientedx3, NAD HEENT: Oxygen by nasal cannula CV: Paced rhythm, no pedal edema Pulm: Clear to auscultation, no rhonchi or wheezes or rales ABD: soft, nontender, nondistended Extremities: No swelling, no tenderness Problem List: Cardiogenic Shock, resolved Acute on chronic diastolic CHF exacerbation Hx of A-fib s/p ablation, pacemaker and watchman MORRIS / CKD3 BPH Hx of CAD, s/p CABG Hx thyroid cancer, s/p thyroidectomy hx gout hx prior CVA Cardiogenic Shock, resolved patients BP dropped and transferred to icu 11/12-11/13 Associated MORRIS. Status post midodrine and Levophed. Medications also contributing to hypotension. Troponins negative antihypertensives held since admission s/p Lasix drip (11/13-11/16). Functional status improving with PT Acute on chronic diastolic CHF exacerbation Acute on chronic respiratory failure with hypoxia most recent echo (10/31/23): 55-60%EF, mild left atrial enlargement, mod-severe TR, pulmonary hypertension CXR (11/12): pulm edema, cardiomegaly, small L pleural effusion, b/l atelectasis L > R Repeat CXR (11/16): Bilateral opacities resolved. s/p Lasix drip (11/13-11/16) Currently appears compensated for CHF Nephrology is following and adjusting Lasix dose. Awaiting arrangements for home oxygen. Hx of A-fib s/p ablation, pacemaker and watchman Stable s/p recent ablation and watchman continue Sotalol; increased to BID from daily 11/13 MORRIS / CKD3 MORRIS secondary to cardiorenal / NSAID use; nephrology following Renal function improved. S/p lasix drip Serum creatinine trended up a bit from yesterday Lasix dose decreased to 20 mg daily by nephrology. BPH continue home flomax Critical care induced myopathy Functional status improved Patient ambulated to 50 feet with a walker during PT today. Anticipating disposition to home with home health. VTE: lovenox Code: Full
[2023-11-22 06:32] LABS: Absolute Basophils 0.1 K/uL (0-0.5); Absolute Eosinophils 0.2 K/uL (0-0.5); Absolute Lymphocytes (CBC) 0.9 K/uL (0.7-4.9); Absolute Monocytes 0.6 K/uL (0.1-1.3); Absolute Neutrophil 3.3 K/uL (1.8-8.0); Basophils % 1.3 % (0-1.3); Eosinophils % 3.3 % (0-4.4); Hematocrit 30.9 % (39.6-49.0); Hemoglobin 9.8 g/dL (13.6-17.9); Lymphocytes % 17.6 % (15.3-44.8); MCH 27.2 pg (27.0-35.0); MCHC 31.7 g/dL (32.0-36.0); MCV 85.8 fL (80-100); MPV 7.9 fL (7.6-11.3); Monocytes % 11.8 % (3.3-12.3); Nucleated Red Blood Cells % 0.1 % (0-0); Platelets 184 thou/uL (152-406); Red Cell Distribution Width 27.1 % (12.1-15.2)
[2023-11-22 06:52] LABS: Anion Gap 5.8 mEq/L (5.0-15.0)
[2023-11-22 06:54] LABS: Potassium 3.8 mEq/L (3.5-5.1)
[2023-11-22] MEDS ORDERED: POTASSIUM 25 MEQ EFFERV TAB PO ONE (08:00)
[2023-11-22] MEDS: FUROSEMIDE 20 MG TABLET PO SCH (08:53)
[2023-11-22 09:53] VITALS: O2SAT 92
[2023-11-22 12:12] VITALS: BP 113/62; TEMP 96.7
[2023-11-22] MEDS: POTASSIUM 25 MEQ EFFERV TAB PO SCH (12:25)
--- NOTE | 2023-11-22 12:32 | PN ---
Date of Progress Note: 11/22/2023 Subjective: The patient was admitted to the hospital with acute kidney injury secondary to cardiogen ic shock, congestive heart failure with exacerbation. The patient responding very well to Lasix drip and then switched to full dose. The patient feeling better yesterday. Creatinine bounced back. Fo r that reason, we decreased Lasix. The patient feeling okay. Physical Examination: Vital Signs: Blood pressure 111/59, pulse of 83, afebrile. Chest: Faint rales on the base. Heart: S1, S2. Systolic murmur. Irregular. Abdomen: Soft, nontender. Extremities: No edema. Neurologic: Alert. No focality. Laboratory Data: Sodium 135, potassium 3.8, bicarb 36, BUN 52, creatinine 1.5, trending down, GFR 47 , calcium 9.3, albumin 2.9 corrected calcium 10.1, hemoglobin 9.8. Current Medications: The patient is on include: 1.Sotalol. 2.Gabapentin 300 q.h.s. 3.Tylenol. 4.Citalopram. 5.Zofran. 6.Pantoprazole. 7.Levothyroxine. Assessment And Plan: 1.Acute kidney injury secondary to cardiorenal, poor perfusion ATN secondary to cardiogenic shock. Continue to recover, looked to me with chest x-ray that was done yesterday, normal volume. I am colten g to continue the adjusted dose of Lasix that we had done yesterday as 20 mg daily and we will follow up. 2.Hypertension, controlled, optimal. Continue current treatment. 3.Congestive heart failure with exacerbation as above. Continue Lasix as above. 4.Cardiogenic shock, recover, resolved. 5.Hypokalemia, status post supplement, recover. 6.Hyponatremia, dilutional. Continue Lasix, stable. PRESLEY/NATASHA Voice ID: [id number] Report ID: [id number]
--- NOTE | 2023-11-22 14:20 | P.DS ---
Admission Date: 11/14/23 Discharge Date: 11/22/23 Disposition: [place] [facility]/HOME HEALTH CARE Discharge Condition: FAIR Reason for Admission: Shortness of breath Brief History of Present Illness: 68-year-old male with past medical history of hypertension, diastolic CHFecho shows normal EF recently, A-fib status post recent ablation, CKD stage III with baseline creatinine around 1.8, hypothyroidism, recent hospitalization for A-fib ablation with CHF exacerbation discharge about 2 weeks prior presented to the ED because of worsening shortness of breath as well as a cough. P In the ED, vital signs were stable. O2 sat initially was 96% on room air but later worsening with exertion to 91%. Chest x-ray showed pulmonary edema. Troponin was normal. BMP was unremarkable except for creatinine of 1.8about baseline. CBC was unremarkable. Patient was admitted for further management of CHF exacerbation Hospital Course: Patient was admitted to the medical floor and the following medical problems addressed: Diagnosis: Cardiogenic Shock, resolved Acute on chronic diastolic CHF exacerbation Acute respiratory failure with hypoxia Hx of A-fib s/p ablation, pacemaker and watchman MORRIS / CKD3 BPH Hx of CAD, s/p CABG Hx thyroid cancer, s/p thyroidectomy hx gout hx prior CVA Cardiogenic Shock, resolved patients BP dropped and was transferred to icu 11/12-11/13 Patient diagnosed with cardiogenic shock Associated MORRIS. Status post midodrine and Levophed. Medications also contributed to the hypotension. Troponins negative antihypertensives held during admission He was treated with s/p Lasix drip (11/13-11/16) for acute CHF. Blood pressure improved. Patient was transferred to the medical floor where he continued to improve. He was seen and evaluated by physical therapy and eventually able to ambulate in the hallway, about 250 feet with a walker. Acute on chronic diastolic CHF exacerbation Acute respiratory failure with hypoxia most recent echo (10/31/23): 55-60%EF, mild left atrial enlargement, mod-severe TR, pulmonary hypertension CXR (11/12): pulm edema, cardiomegaly, small L pleural effusion, b/l atelectasis L > R Repeat CXR (11/16): Bilateral opacities resolved. s/p Lasix drip (11/13-11/16) Patient is compensated for CHF Nephrology followed patient and adjusted diuretics. Patient did not qualify for home oxygen. Awaiting arrangements for home oxygen. Hx of A-fib s/p ablation, pacemaker and watchman Stable s/p recent ablation and watchman continued Sotalol; increased to 80 mg BID from 120 mg daily. MORRIS / CKD3 MORRIS secondary to cardiorenal / NSAID use; nephrology following Renal function improved. S/p lasix drip Serum creatinine trended up a bit from yesterday Lasix dose decreased to 20 mg daily by nephrology. BPH continued home flomax Critical care induced myopathy Functional status improved Patient ambulated to 250 feet with a walker during PT.. He is discharged to home with home health for PT. Vital Signs/Physical Exam: Temp Pulse Resp BP Pulse Ox 96.7 F L 82 18 113/62 92 11/22/23 12:00 11/22/23 12:00 11/22/23 12:00 11/22/23 12:00 11/22/23 12:00 General: Alert, In no apparent distress HEENT: Mucous membr. moist/pink Neck: JVD not distended Respiratory: Clear to auscultation bilaterally, Normal air movement Cardiovascular: No edema, Regular rate/rhythm, Normal S1 S2 Gastrointestinal: Normal bowel sounds, Soft and benign, Non-distended Musculoskeletal: No swelling, No tenderness Integumentary: No rashes, No cyanosis Neurological: Normal speech, Normal strength at 5/5 x4 extr Laboratory Data at Discharge: WBC 5.10 thou/uL (4.3-10.9) 11/22/23 06:21 Hgb 9.8 g/dL (13.6-17.9) L 11/22/23 06:21 Hct 30.9 % (39.6-49.0) L 11/22/23 06:21 Plt Count 184 thou/uL (152-406) 11/22/23 06:21 Sodium 135 mEq/L (136-145) L 11/22/23 06:21 Potassium 3.8 mEq/L (3.5-5.1) 11/22/23 06:21 BUN 52 mg/dL (7-18) H 11/22/23 06:21 Creatinine 1.58 mg/dL (0.70-1.30) H 11/22/23 06:21 Glucose 101 mg/dL (74-106) 11/22/23 06:21 Uric Acid 5.5 mg/dL (3.5-7.2) 11/14/23 08:00 Phosphorus 3.4 mg/dL (2.5-4.9) 11/20/23 07:52 Magnesium 2.2 mg/dL (1.6-2.4) 11/20/23 07:52 Total Bilirubin 0.5 mg/dL (0.2-1.0) 11/17/23 05:14 AST 21 U/L (15-37) 11/17/23 05:14 ALT 23 U/L (16-61) 11/17/23 05:14 Alkaline Phosphatase 95 U/L (45-117) 11/17/23 05:14 Home Medications: Meclizine HCl 12.5 mg PO BEDTIME MDD 25 06/05/20 Allopurinol 100 mg PO BEDTIME 06/06/21 Escitalopram Oxalate 20 mg PO BEDTIME 06/06/21 Tamsulosin [Flomax*] 0.4 mg PO BEDTIME 06/06/21 Baclofen 10 mg PO BEDTIME 01/25/23 Gabapentin 900 mg PO BEDTIME 01/25/23 Pantoprazole [Protonix Tab*] 40 mg PO BEDTIME 01/25/23 Hydrocodone 7.5/APAP 325 [Bul[place] 7.5/325 mg*] 7.5 - 325 mg PO Q6H PRN 02/20/23 Albuterol Sulfate [Albuterol Sulfate Hfa] 2 puff IH Q4H PRN #1 inhaler 11/22/23 Furosemide [Lasix*] 20 mg PO DAILY #30 tab 11/22/23 Levothyroxine [Synthroid*] 100 mcg PO BEDTIME #30 tab 11/22/23 Midodrine HCl [Proamatine*] 5 mg PO TID #90 tab 11/22/23 Sotalol HCl [Betapace*] 80 mg PO BID 6AM 6PM #60 tab 11/22/23 New Medications: Albuterol Sulfate [Albuterol Sulfate Hfa] 2 puff IH Q4H PRN #1 inhaler PRN Reason: Shortness Of Breath Sotalol HCl [Betapace*] 80 mg PO BID 6AM 6PM #60 tab Furosemide [Lasix*] 20 mg PO DAILY #30 tab Midodrine HCl [Proamatine*] 5 mg PO TID #90 tab Levothyroxine [Synthroid*] 100 mcg PO BEDTIME #30 tab Diet: AHA Activity: Fall precautions Followup: Yosvany Blount MD [ACTIVE - CAN ADMIT] - 1-2 Weeks Paula Elias NP [Primary Care Provider] - 1 Week Time spent managing pt's care (in minutes): 38
== END 2023-11-22 15:24 | disposition home health service (06) | DRG 291 ==
LOC: ER 23:40 → ERHOLD 11-13 02:12 → 4TH 11-13 15:11 → 3RD-ICU 11-14 05:50 → OBSVTOIN 11-14 08:40 → 4TH 11-19 14:52
PROVIDERS: ADMIT Internal Medicine; ATTEND Internal Medicine
DX: I13.0 Hypertensive heart and chronic kidney disease with heart failure and stage 1 through stage 4 chronic kidney disease, or unspecified chronic kidney disease (principal); I50.33 Acute on chronic diastolic (congestive) heart failure; N17.0 Acute kidney failure with tubular necrosis; R57.0 Cardiogenic shock; J96.21 Acute and chronic respiratory failure with hypoxia; I48.20 Chronic atrial fibrillation, unspecified; E87.1 Hypo-osmolality and hyponatremia; N18.30 Chronic kidney disease, stage 3 unspecified; D63.1 Anemia in chronic kidney disease; D50.9 Iron deficiency anemia, unspecified; M10.9 Gout, unspecified; E03.9 Hypothyroidism, unspecified; E83.42 Hypomagnesemia; E87.6 Hypokalemia; G72.9 Myopathy, unspecified; K21.9 Gastro-esophageal reflux disease without esophagitis; N40.0 Benign prostatic hyperplasia without lower urinary tract symptoms; I95.2 Hypotension due to drugs; I25.10 Atherosclerotic heart disease of native coronary artery without angina pectoris; T43.225A Adverse effect of selective serotonin reuptake inhibitors, initial encounter; I25.2 Old myocardial infarction; Z95.0 Presence of cardiac pacemaker; Z88.5 Allergy status to narcotic agent; Z95.5 Presence of coronary angioplasty implant and graft; Z88.8 Allergy status to other drugs, medicaments and biological substances; Z98.84 Bariatric surgery status; Z90.49 Acquired absence of other specified parts of digestive tract; Z86.73 Personal history of transient ischemic attack (TIA), and cerebral infarction without residual deficits; Z79.890 Hormone replacement therapy; Z79.899 Other long term (current) drug therapy; Z85.850 Personal history of malignant neoplasm of thyroid
CPT/HCPCS: 36415; 71045; 76770; 80048; 80053; 80069; 81001; 82533; 82550; 82570; 83735; 83880; 84156; 84439; 84443; 84484; 84550; 85025; 85027; 93005; 96374; 97116; 97161; 97530; 99285; G0378; J1644; J1940; J3475; J7040; J7060; J7613; J7644; P9047

== ENCOUNTER 2023-12-04 14:19 | Inpatient (IN) | payer OTHER ==
--- OUTSIDE RECORDS SUMMARY | 2023-12-04 14:24 | XMS REPORT | Continuity of Care Document ---
Author Name Unknown Address [address] [facility] [address] [place] [address] [facility] Address [address] [facility] [address] [place] [address] Care Team Providers Care Pastrycook Name Role Phone VIDA AZAR I. Primary Care Physician MAGDALENE King Attending Clinician UnavailZAK Berger Attending Clinician UnavailDAVID Jerome Attending Clinician UnavailALEX Oliveira Attending Clinician Unavailable LAINA VANG Attending Clinician CARLEY Machuca Attending Clinician Unavailable MOUSTAPHA BANKS Attending Clinician Unavailable Only, Ang Db Test Attending Clinician UnavailAlfonzo Wolf Attending Clinician [phone] ALFONZO BIRMING[place]AM Attending Clinician Unavailable Sheila Key RN Attending Clinician Cindy Hutchinson Unassigned, [place] Attending Clinician U VIDA Salcedo I. Attending Clinician David Quinones MD Attending Clinician [phone] Darius Mcdowell CRNA Attending Clinician [phone] Jim Thakur MD Attending Clinician [phone] Only, Adc Test Attending Clinician Unavailable Nurse, Adc General Surgery Attending Clinician U DAVID Banda Admitting Clinician David Quinones MD Admitting Clinician [phone] Payers Payer Name Policy Type Policy Number Effective Date Expirati on Date Source [facility] WELLMED [id number] 2020 00:00:00 WELL[employer] MEDICARE ADVANTAGE [id number] 2019 00:00:00 [employer] MEDICARE SUPPLEMENT [id number] 2019 00:00:00 [facility] MEDICARE ADVANTAGE [id number] 2016 00:00:00 Problems Condition Name Condition Details Condition Category Status Onset Date Resolution Date Last Treatment Date Treating Clinician Comments Source Diabetes mellitus without mention of complicati on, type II or unspecifie d type, uncontroll ed Diabetes mellitus without mention of complicati on, type II or unspecifie d type, uncontroll ed Active Problem 01/10/2018 Andraes Lott Problem Active 2018-01-10 02:57:21 Memoria daljit Key Gastro-eso phageal reflux disease with esophagiti s Gastro-eso phageal reflux disease with esophagiti s Active Problem 01/10/2018 Andreas Lott Problem Active 2018-01-10 02:57:21 Memoria daljit Key Malignant neoplasm of thyroid gland Malignant neoplasm of thyroid gland Active Problem 01/10/2018 Andreas Lott Problem Active 2018-01-10 02:57:21 Memoria daljit Key Hyperlipid emia, unspecifie d Hyperlipid emia, unspecifie d Active Problem 01/10/2018 Andreas Lott Problem Active 2018-01-10 02:57:21 Memoria daljit Key Chronic kidney disease, unspecifie d Chronic [...] Lott Problem Active 2018-01-10 02:57:21 Memkushal Key Atrial fibrillati on Atrial fibrillati on Active Problem 01/10/2018 Andreas Lott Problem Active 2018-01-10 02:57:21 Memoria daljit Key Coronary atheroscle rosis of [place] coronary artery Coronary atheroscle rosis of [place] coronary artery Active Problem 01/10/2018 Andreas Lott Problem Active 2018-01-10 02:57:21 Oh Key Hyperlipid emia Hyperlipid emia Active Problem 01/10/2018 Andreas Lott Problem Active 2018-01-10 02:57:21 Oh Key Persistent atrial fibrillati on Persistent atrial fibrillati on Active Problem 01/10/2018 Andreas Lott Problem Active 2018-01-10 02:57:21 Oh Key Left ventricula r failure Left ventricula r failure Active Problem 01/10/2018 Andreas Lott Problem Active 2018-01-10 02:57:21 Memkushal Key Sleep apnea, unspecifie d Sleep apnea, unspecifie d Active Problem 01/10/2018 Andreas Lott Problem Active 2018-01-10 02:57:21 Oh Key Obstructiv e sleep apnea (adult) (pediatric [...] Lott Problem Active 2018-01-10 02:57:21 Oh Key Chronic kidney disease, Stage III (moderate) Chronic kidney disease, Stage III (moderate) Active Problem 01/10/2018 Andreas Lott Problem Active 2018-01-10 02:57:21 Oh Key GERD GERD Active Problem 01/10/2018 Andreas Lott Problem Active 2018-01-10 02:57:21 Oh Key Unspecifie d sleep apnea Unspecifie d sleep apnea Active Problem 01/10/2018 Andreas Lott Problem Active 2018-01-10 02:57:21 Oh Key Hypothyroi dism, unspecifie d Hypothyroi dism, unspecifie d Active Problem 01/10/2018 Andreas Lott Problem Active 2018-01-10 02:57:21 Memkushal Key Idiopathic gout, unspecifie d site Idiopathic [...] Source ADHESIVE TAPE-CLIVE ICONES DRUG Active Other-Cmnt 07-13 00:00: 00 [facility] APIXABAN DRUG INGREDI Active Rash 2020-0 427 00:00: 00 [facility] CLOPIDOG REL DRUG INGREDI Active Other-Cmnt 2020-0 427 00:00: 00 [facility] DABIGATR AN ETEXILAT E DRUG INGREDI Active Rash 2020-0 427 00:00: 00 [facility] Adhesive Tape-Clive icones Propensi ty to adverse reaction s Active Other - See comments 2020-0 07-13 00:00: 00 blisters [facility] Apixaban Propensi ty to adverse reaction s Active Rash 2020-0 07-13 00:00: 00 [facility] Clopidog rel Propensi ty to adverse reaction s Active Other - See comments 0 07-13 00:00: 00 rash [facility] Dabigatr an Etexilat e Propensi ty to adverse reaction s Active Rash 2020-0 07-13 00:00: 00 [facility] Tramadol Drug Intolera nce Active Other - See comments 0 07-13 00:00: 00 vomit [facility] Rivaroxa ban Propensi ty to adverse reaction s Active Rash 2020-0 07-13 00:00: 00 [facility] TRAMADOL DRUG INGREDI Active Other-Cmnt 2020-0 07-13 00:00: 00 [facility] RIVAROXA BAN DRUG INGREDI Active Rash 2020-0 07-13 00:00: 00 [facility] plavix plavix Active Info Not Available 2016-03 00:00: 00 [facility] Social History Social Habit Start Date Stop Date Quantity Comments Source Exposure to SARS-CoV-2 (event) 2021-09-20 00:00:00 2021-09-30 18:39:[address] [facility] Tobacco use and exposure 2019-07-14 00:00:00 2019-07-14 00:00:00 Smokeless tobacco non-user [facility] Sex Assigned At 1955 00:00:00 1955 00:00:00 [facility] Smoking Status Start Date Stop Date Source Never smoked tobacco [facility] Medications Ordered Medication Name Filled Medication Name Start Date Stop Date Current Medication? Ordering Clinician Indication Dosage Frequency Signature (SIG) Comments Components Source diphenhydrA MINE (BENADRYL) 25 mg capsule 08-05 14:15: 57 Yes 50mg Take 50 mg by mouth daily. [facility] naproxen (NAPROSYN ORAL) 08-05 14:15: 57 Yes 220{cap nevaeh} Take 220 capsules by mouth daily. [facility] PROBENECID- COLCHICINE ORAL 08-05 14:15: 57 Yes 500{cap nevaeh} Take 500 capsules by mouth daily. [facility] BACLOFEN ORAL 08-05 14:15: 57 Yes 200{cap nevaeh} Take 200 capsules by mouth daily. [facility] allopurinoL 100 mg tablet 08-05 14:15: 57 Yes 100mg Take 100 mg by mouth daily. [facility] escitalopra m oxalate (LEXAPRO) 20 mg tablet 08-05 14:15: 57 Yes 20mg Take 20 mg by mouth daily. [facility] pantoprazol e 20 mg EC tablet 08-05 14:15: 57 Yes 20mg Take 20 mg by mouth daily. [facility] ramipril 5 mg capsule 08-05 14:15: 57 Yes 5mg Take 5 mg by mouth daily. [facility] sotalol (SOTALOL AF) 120 mg tablet 08-05 14:15: 57 Yes 120mg Take 120 mg by mouth daily. [facility] Levothyroxi ne 137 mcg Cap 08-05 14:15: 57 Yes 137{cap nevaeh} Take 137 capsules by mouth daily. [facility] tamsulosin 0.4 mg 24 hr capsule 08-05 14:15: 57 Yes .4mg Take 0.4 mg by mouth daily. [facility] Escitalopra m Oxalate 2017-03 02:57: 21 Yes Karoline Rivera TAKE ONE TABLET BY MOUTH DAILY [facility] Amlodipine Besylate 2017-03 02:57: 21 Yes [...] 21 Yes Karoline Rivera not defined Memoria daljit Key Synthroid 2017-03 02:57: 21 Yes Karoline Rivera [...] Rivera TAKE ONE TABLET BY MOUTH DAILY Memkushal Key Chlorthalid one 2017-03 02:57: 21 Yes [...] Rivera 1 tablet Memori a daljit Key [place] 11-13 00:00: 00 Yes Karoline Rivera 1 [...] S ource Weight 2017-03-09 18:30:00 [facility] Height 2017-03-09 18:30:00 [facility] Respitory Rate 2017-03-09 18:30:00 [facility] Heart Rate 2017-03-09 18:30:00 [facility] Diastolic (mm Hg) 2017-03-09 18:30:00 [facility] Systolic (mm Hg) 2017-03-09 18:30:00 [facility] Temperature Oral (F) 2017-03-09 18:30:00 97.4 F [facility] Procedures Procedure Date / Time Performed Performing Clinicia n Source NOTICE OF BILLING PRACTICES FOR MEDICARE PATIENTS 2021-04-28 21:54:19 Doctor Unassigned, [place] [facility] ASSIGNMENT OF BENEFITS 2021-04-28 21:54:02 Docto r Unassigned, [place] [facility] Encounters Start Date/Time End Date/Time Encounter Type Admission Type Attending Clinicians Care Facility Care Department Encounter ID Source 2022-10-13 13:53:50 Outpatient [facility] [id number] [facility] 2022-10-01 19:18:27 Outpatient [facility] [id number] [facility] 2022-09-29 02:44:20 Outpatient [facility] [id number] [facility] 2022-09-13 10:24:37 Outpatient [facility] [id number] [facility] 2022-09-04 16:20:31 Outpatient [facility] [id number] [facility] 2022-08-15 11:40:55 Outpatient [facility] [id number] [facility] 2022-07-20 15:42:29 Outpatient [facility] [id number] [facility] 2022-06-20 13:41:58 Outpatient [facility] [id number] [facility] 2022-04-11 12:43:29 Outpatient [facility] [id number] [facility] 2022-04-05 11:39:25 Outpatient [facility] [id number] [facility] 2021-12-11 08:39:01 Outpatient [facility] [id number] [facility] 2021-09-13 13:01:37 Outpatient MAGDALENE FORTE [facility] [id number] [facility] 2021-08-23 09:19:23 Outpatient [facility] [id number] [facility] 2021-06-14 10:21:53 Outpatient ZAK TESFAYE [facility] [id number] [facility] 2021-06-11 10:00:13 Outpatient [facility] [id number] [facility] 2021-05-17 14:54:16 Outpatient ZAK TESFAYE [facility] [id number] [facility] 2021-04-28 16:42:22 Outpatient ZAK TESFAYE [facility] [id number] [facility] 2021-04-13 11:50:38 Outpatient ZAK TESFAYE [facility] [id number] [facility] 2021-03-01 11:36:41 Outpatient [facility] [id number] [facility] 2021-03-01 09:47:40 Outpatient MAGDALENE FORTE [facility] [id number] [facility] 2021-02-25 10:48:59 Outpatient ZAK TESFAYE [facility] [id number] [facility] 2021-02-18 10:34:54 Outpatient MAGDALENE FORTE [facility] [id number] [facility] 2021-01-13 19:20:35 [facility] [id number] [facility] 2021-01-13 19:20:35 [facility] [id number] [facility] 2021-01-12 14:58:16 Outpatient MAGDALENE FORTE [facility] [id number] [facility] 2023-12-05 09:15:00 2023-12-05 09:15:00 Outpatient MAGDALENE FORTE [facility] [id number] [facility] 2023-10-18 10:45:00 2023-10-18 12:10:54 Outpatient ALEX SENIOR [facility] [id number] [facility] 2023-10-18 08:15:00 2023-10-18 08:15:00 Outpatient ALEX SENIOR [facility] [id number] [facility] 2023-04-18 10:45:00 2023-04-18 11:37:13 Outpatient LAINA VANG [facility] [id number] [facility] 2023-01-01 16:00:00 2023-01-01 16:00:00 Outpatient CARLEY MOSELEY [facility] [id number] [facility] 2022-12-01 09:45:00 2022-12-01 10:37:44 Outpatient MOUSTAPHA BANKS [facility] [id number] [facility] 2022-11-15 10:15:00 2022-11-15 10:15:00 Outpatient MOUSTAPHA BANKS [facility] [id number] [facility] 2022-11-03 09:30:00 2022-11-03 09:30:00 Outpatient MOUSTAPHA BANKS [facility] [id number] [facility] 2022-10-26 08:00:00 2022-10-26 08:00:00 Outpatient MOUSTAPHA BANKS [facility] [id number] [facility] 2022-10-18 11:15:00 2022-10-18 11:46:27 Outpatient MOUSTAPHA BANKS [facility] [id number] [facility] 2022-09-13 10:15:00 2022-09-13 11:27:45 Outpatient MAGDALENE FORTE [facility] [id number] [facility] 2022-09-05 14:30:00 2022-09-05 14:30:00 Outpatient MAGDALENE FORTE [facility] [id number] [facility] 2022-08-28 10:45:00 2022-08-28 11:39:21 Outpatient MOUSTAPHA BANKS [facility] [id number] [facility] 2022-04-11 13:00:00 2022-04-11 13:42:00 Outpatient MAGDALENE FORTE [facility] [id number] [facility] 2021-09-30 18:45:00 2021-09-30 19:00:00 Laboratory Only Only, Ang Db Test Vinnie Alfonzo [facility] [id number] 350.1.13.10 4.2.7.2.[id number] [facility] 2021-09-30 18:45:00 2021-09-30 18:45:00 Outpatient R VINNIE AZEEMBECK [facility] [id number] [facility] 2021-04-29 00:00:00 2021-04-29 00:00:00 Letter (Out) Sheila Key [facility] 1.840.114 350.1.13.10 4.2.7.2.[id number] [facility] 2021-04-28 16:00:00 2021-04-28 16:15:00 Laboratory Only Only, Ang Db Test Alfonzo [place] [facility] 1.2840.114 350.1.13.10 4.2.7.2.[id number] [facility] 2021-04-28 16:00:00 2021-04-28 16:00:00 Outpatient ALFONZO GONZALEZ [facility] [id number] [facility] 2021-04-28 00:00:00 2021-04-28 00:00:00 Orders Only Doctor Unassigned, [place] [facility] 1.2840.114 350.1.13.10 4.2.7.2.[id number] [facility] 2021-04-28 00:00:00 2021-04-28 00:00:00 Letter (Out) Doctor Unassigned, [place] [facility] 1.0.114 350.1.13.10 4.2.7.2.[id number] [facility] 2019-11-12 00:00:00 2019-11-12 00:00:00 Outpatient VIDA GARCIA [facility] [id number] MD Eddie miramontes 2019-08-06 11:31:28 2019-08-06 14:15:00 Hospital David Agosto [facility] 1..114 350.1.13.10 4.2.7.2.686 [id number] 2019-08-06 12:50:00 2019-08-06 13:19:00 Anesthesia Darius Mcdowell David K [facility] 1.284.114 350.1.13.10 4.2.7.2.686 [id number] 2019-08-05 09:04:50 2019-08-05 09:19:50 Laboratory Only Only, Adc Test [facility] 1.2.840.114 350.1.13.10 4.2.7.2.686 [id number] 2019-08-05 08:45:00 2019-08-05 08:45:00 Outpatient R DAVID CASTELLANOS [facility] [id number] [facility] 2019-08-05 00:00:00 2019-08-05 00:00:00 Orders Only Doctor Unassigned, [place] [facility] 1.2840.114 350.1.13.10 4.2.7.2.686 [id number] 2019-07-16 10:00:00 2019-07-16 13:45:00 [facility] [id number] 350.1.13.10 4.2.7.2.686 [id number] 2019-07-15 11:00:00 2019-07-15 11:00:00 Outpatient R DAVID CASTELLANOS [facility] [id number] [facility] 2019-07-15 10:23:51 2019-07-15 10:30:38 Nurse Visit Nurse, [facility] 1.2.840.114 350.1.13.10 4.2.7.2.686 [id number] 2019-07-15 00:00:00 2019-07-15 00:00:00 Telephone Bim [facility] 1.2840.114 350.1.13.10 4.2.7.2.686 [id number]
[2023-12-04] MEDS ORDERED: NITROGLYCERIN 1 GM PKT TD ONE (14:58)
[2023-12-04] MEDS ORDERED: FUROSEMIDE 100 MG/10 ML VIAL IV ONE (14:58)
[2023-12-04] MEDS ORDERED: ONDANSETRON 4 MG/2 ML VIAL ONE (14:58)
[2023-12-04] MEDS ORDERED: FAMOTIDINE 20 MG/2 ML VIAL IV ONE (14:59)
[2023-12-04] MEDS ORDERED: MORPHINE 2 MG/ML SYR ONE (14:59)
[2023-12-04 15:08] LABS: Absolute Basophils 0.1 K/uL (0-0.5); Absolute Eosinophils 0.3 K/uL (0-0.5); Absolute Monocytes 0.4 K/uL (0.1-1.3); Basophils % 1.1 % (0-1.3); Eosinophils % 4.3 % (0-4.4); Hematocrit 37.7 % (39.6-49.0); Hemoglobin 11.5 g/dL (13.6-17.9); MCH 27.8 pg (27.0-35.0); MCHC 30.6 g/dL (32.0-36.0); MCV 90.9 fL (80-100); MPV 7.8 fL (7.6-11.3); Monocytes % 5.4 % (3.3-12.3); Neutrophils % 76.2 % (41.7-73.7); Platelets 318 thou/uL (152-406); RBC Red Blood Cell Count 4.14 M/uL (4.33-5.43); Red Cell Distribution Width 27.3 % (12.1-15.2)
[2023-12-04 15:09] LABS: PT Prothrombin Time 12.4 SECONDS (9.4-12.5); Protime INR 1.11
[2023-12-04 15:24] LABS: ALT/SGPT 31 U/L (16-61); AST/SGOT 29 U/L (15-37); Albumin 3.1 g/dL (3.4-5.0); Albumin/Globulin Ratio 0.7 (1.1-1.8); Alkaline Phosphatase 81 U/L (45-117); Anion Gap 8.5 mEq/L (5.0-15.0); BUN Blood Urea Nitrogen 29 mg/dL (7-18); Bicarbonate 28 mEq/L (21-32); Bilirubin Total 0.4 mg/dL (0.2-1.0); Globulin 4.6 g/dL (2.3-3.5); Glomerular Filtration Rate 38 ml/min (=/>90); Glucose Level 124 mg/dL (74-106); Magnesium 2.4 mg/dL (1.6-2.4); NT PRO-BNP 1380 pg/mL (<125); Potassium 5.5 mEq/L (3.5-5.1); Protein, Total 7.7 g/dL (6.4-8.2); Sodium Level 137 mEq/L (136-145); Troponin High Sensitivity 12.7 pg/mL (<58.9)
[2023-12-04 15:25] LABS: Bilirubin Direct < 0.2 mg/dL (0-0.2); Bilirubin Indirect, Calculated 0.2 mg/dL (0.2-0.8)
[2023-12-04 15:29] LABS: Specific Gravity 1.014 (1.005-1.030); Sqamous Epithelial None Seen /HPF (None Seen); Urine Bacteria None Seen /HPF (<20); Urine Bilirubin NEGATIVE (Negative); Urine Blood Negative (Negative); Urine Clarity Clear (Clear); Urine Color Light-Yellow (Yellow); Urine Culture Reflex Order NOT NEEDED; Urine Glucose NEGATIVE (Negative); Urine Ketones NEGATIVE (Negative); Urine Microscopic Reflex YN ORDER UMIC; Urine Nitrite NEGATIVE (Negative); Urine Protein NEGATIVE (Negative); Urine RBC <5 /HPF (None Seen); Urine Urobilinogen Normal (Normal); Urine WBC <5 /HPF (<5)
--- NOTE | 2023-12-04 16:02 | ER ---
Nurse's Notes [facility] Name: Ángel Haddad Age: 68 yrs Sex: Male : 1955 Arrival Date: 12/04/2023 Time: 14:19 Bed 4 Private MD: Diagnosis: Chronic combined systolic (congestive) and diastolic (congestive) heart failure;Hypoxemia;Hypertensive heart and chronic kidney disease without heart failure, with stage 1 through stage 4 chronic kidney disease, or unspecified chronic kidney disease;Generalized edema;Essential (primary) hypertension;Presence of cardiac pacemaker Presentation: 12/03 14:33 Chief complaint: Patient states: hx of chf, has had SOB, low O2 at home. Coronavirus iw screen: Client presents with at least one sign or symptom that may indicate coronavirus-19. Ebola Screen: No symptoms or risks identified at this time. Initial Sepsis Screen: Does the patient meet any 2 criteria? No. Patient's initial sepsis screen is negative. Does the patient have a suspected source of infection? No. Patient's initial sepsis screen is negative. Risk Assessment: Do you want to hurt yourself or someone else? Patient reports no desire to harm self or others. Onset of symptoms was December 04, 2023. 14:33 Method Of Arrival: Ambulatory iw 14:33 Acuity: MARGO 2 iw Historical: - Allergies: 14:34 tramadol; iw 14:34 apixaban; iw 14:34 CLOPIDOGREL; iw 14:34 Adhesives; iw - PMHx: 14:34 Atrial Fib; CVA; kidney failure; Myocardial infarction; Pace maker; iw - Immunization history:: Adult Immunizations up to date. - Infectious Disease History:: Denies. - Social history:: Smoking status: unknown. Screenin:26 [facility] ED Fall Risk Assessment (Adult) History of falling in the last 3 months, cm10 including since admission No falls in past 3 months (0 pts) Confusion or Disorientation No (0 pts) Intoxicated or Sedated No (0 pts) Impaired Gait Yes (1 pt) Mobility Assist Device Used Yes (1 pt) Altered Elimination Yes (1 pt) Score/Fall Risk Level 3 or more points = High Risk Oriented to surroundings, Maintained a safe environment, Educated pt \T\ family on fall prevention, incl call for assistance when getting out of bed, Hourly rounding (assess needs \T\ fall precautionary measures) done. Abuse screen: Denies threats or abuse. Denies injuries from another. Nutritional screening: No deficits noted. Tuberculosis screening: No symptoms or risk factors identified. Assessment: 14:45 General: RT paged at this time for BiPAP and pt switched to non-rebreather from nasal cm10 cannula.. 14:45 General: Appears distressed, Behavior is cooperative. Pain: Denies pain. Neuro: No cm10 deficits noted. Level of Consciousness is awake, alert, obeys commands, Oriented to person, place, time, situation, Appropriate for age. Cardiovascular: Heart tones present Patient's skin is warm and dry. Respiratory: Airway is patent Respiratory effort is labored, Respiratory pattern is tachypnea Breath sounds are coarse bilaterally. Breath sounds with crackles bilaterally. 14:50 General: Pt placed on BiPap at this time.. cm10 14:50 Respiratory: Patient placed on BiPAP:. cm10 15:45 Reassessment: Patient appears in no apparent distress at this time. No changes from cm10 previously documented assessment. Patient and/or family updated on plan of care and expected duration. Pain level reassessed. Patient states symptoms have improved. Respiratory: Airway is patent Respiratory effort is even, unlabored, Respiratory pattern is regular, symmetrical. 17:27 Reassessment: Patient appears in no apparent distress at this time. No changes from cm10 previously documented assessment. Patient and/or family updated on plan of care and expected duration. Pain level reassessed. Patient is alert, oriented x 3, equal unlabored respirations, skin warm/dry/pink. Vital Signs: 14:33 BP 178 / 96; Pulse 88; Resp 19; Temp 97; Pulse Ox 74% on R/A; iw 15:00 BP 175 / 104; Pulse 83; Resp 27; Pulse Ox 99% on BiPAP; cm10 15:30 BP 139 / 83; Pulse 82; Resp 20; Pulse Ox 95% on BiPAP; cm10 16:00 BP 108 / 71; Pulse 80; Resp 15; Pulse Ox 97% on BiPAP; cm10 16:30 BP 107 / 74; Pulse 82; Resp 15; Pulse Ox 99% on BiPAP; cm10 17:00 BP 141 / 88; Pulse 80; Resp 21; Pulse Ox 95% on BiPAP; cm10 ED Course: 14:21 Patient arrived in ED. mg5 14:26 Chirag Cueto MD is Attending Physician. meg 14:34 Triage completed. iw 14:45 Initial lab(s) drawn, by me, sent to lab. Inserted saline lock: 20 gauge in right cm10 forearm, using aseptic technique. Blood collected. Flushed with 10 mL NS. 14:45 T\T\S collected, blood band applied to patient. cm10 14:50 Kelly Klein, RN is Primary Nurse. cm10 14:50 Inserted saline lock: 20 gauge in left forearm, using aseptic technique. Flushed with cm10 10 mL NS. 14:50 O2 via BiPap. cm10 14:59 Arm band placed on. iw 15:11 Cavanaugh cath inserted, using sterile technique, 16 Fr., by ED staff, balloon inflated, to cm10 gravity drainage, urine specimen collected. returned clear yellow urine. Patient tolerated well. 15:16 XRAY Chest (1 view) In Process Unspecified. EDMS 15:20 Patient has correct armband on for positive identification. Bed in low position. Call cm10 light in reach. Side rails up X2. Provided Education on: ER process and procedures.. Client placed on continuous cardiac and pulse oximetry monitoring. NIBP monitoring applied. alarm security or surveillance monitor on. 16:00 Surya Alcazar is Hospitalizing Provider. meg 17:27 No provider procedures requiring assistance completed. Patient admitted, IV remains in cm10 place. Administered Medications: 15:09 Drug: morphine IVP or IV 2 mg IVP once over 4 mins Route: IVP; Infused Over: 4 mins; cm10 Site: left forearm; 15:32 Follow up: Response: No adverse reaction cm10 15:10 Drug: Nitroglycerin Transdermal Ointment 2 % 1 inches Transdermal once Route: cm10 Transdermal; Site: anterior chest wall; 15:10 Drug: Furosemide IVP 60 mg IVP once; give over 2 minutes Route: IVP; Site: left forearm;cm10 15:32 Follow up: Response: No adverse reaction cm10 15:10 Drug: Famotidine IVP 20 mg IVP once; dilute with 10 mL 0.9% NaCl; give over 2 minutes cm10 Route: IVP; Site: left forearm; 15:32 Follow up: Response: No adverse reaction cm10 15:10 Drug: Ondansetron IVP 4 mg IVP once; over 2 minutes Route: IVP; Site: left forearm; cm10 15:32 Follow up: Response: No adverse reaction cm10 Medication: 17:28 VIS not applicable for this client. cm10 Output: 17:25 Urine: 1000ml (Cavanaugh); Total: 1000ml. cm10 Outcome: 16:02 Decision to Hospitalize by Provider. meg 17:27 Admitted to ER Hold. Please see [facility] for further documentation. cm10 17:27 Condition: stable 17:27 Instructed on the need for admit, 22:39 Patient left the ED. bm8 Signatures: Dispatcher [employer] EDTX Chirag Cueto MD MD cha Williams, Irene, RN KAROL iw Kelly Klein RN RN cm10 Mary Rodriguez mg5 Adrian Zazueta, RN RN bm8 Corrections: (The following items were deleted from the chart) 15:11 15:10 Inserted saline lock: 20 gauge in left forearm, using aseptic technique. Flushed cm10 with 10 mL NS cm10 15:45 15:45 Respiratory: Patient placed on BiPAP: cm10 cm10
--- NOTE | 2023-12-04 16:02 | EDPHYS ---
Physician Documentation [facility] Name: Ángel Haddad Age: 68 yrs Sex: Male : 1955 Arrival Date: 12/04/2023 Time: 14:19 Bed 4 Private MD: Chirag Salamanca HPI: 12/03 15:29 This 68 yrs old Male presents to ER via Ambulatory with complaints of low O2. meg 15:29 The patient presents with swelling, tenderness. The complaints affect the right leg and meg left leg. Context: resulted from an unknown cause, the patient can fully bear weight, the patient is able to ambulate. Modifying factors: The symptoms are alleviated by elevating leg, the symptoms are aggravated by movement, weight bearing. Associated signs and symptoms: Pertinent positives: swelling. The patient has shortness of breath with light activity, and the patient has a history of CHF. Onset: The symptoms/episode began/occurred 2 day(s) ago. Duration: The symptoms are continuous, and are markedly worse than the original presentation. The patient's shortness of breath is aggravated by coughing, exertion, light activity, supine position, walking. INCREASING SOB, EDEMA, WEIGHT , DECREASING SATS. Historical: - Allergies: 14:34 tramadol; iw 14:34 apixaban; iw 14:34 CLOPIDOGREL; iw 14:34 Adhesives; iw - PMHx: 14:34 Atrial Fib; CVA; kidney failure; Myocardial infarction; Pace maker; iw - Immunization history:: Adult Immunizations up to date. - Infectious Disease History:: Denies. - Social history:: Smoking status: unknown. ROS: 15:32 Constitutional: Negative for fever, chills, and weight loss, Eyes: Negative for injury, meg pain, redness, and discharge, ENT: Negative for injury, pain, and discharge, Neck: Negative for injury, pain, and swelling, Cardiovascular: Negative for chest pain, palpitations, and edema, Abdomen/GI: Negative for abdominal pain, nausea, vomiting, diarrhea, and constipation, Back: Negative for injury and pain, : Negative for injury, bleeding, discharge, and swelling, Skin: Negative for injury, rash, and discoloration, Neuro: Negative for headache, weakness, numbness, tingling, and seizure, Psych: Negative for depression, anxiety, suicide ideation, homicidal ideation, and hallucinations, Allergy/Immunology: Negative for hives, rash, and allergies, Endocrine: Negative for neck swelling, polydipsia, polyuria, polyphagia, and marked weight changes, Hematologic/Lymphatic: Negative for swollen nodes, abnormal bleeding, and unusual bruising, 15:32 Respiratory: Positive for cough, shortness of breath, at rest. 15:32 MS/extremity: Positive for decreased range of motion, pain, swelling, of the right leg and left leg, 15:32 Neuro: Negative for altered mental status, Exam: 15:32 Constitutional: This is a well developed, well nourished patient who is awake, alert, meg and in no acute distress. Head/Face: Normocephalic, atraumatic. Eyes: Pupils equal round and reactive to light, extra-ocular motions intact. Lids and lashes normal. Conjunctiva and sclera are non-icteric and not injected. Cornea within normal limits. Periorbital areas with no swelling, redness, or edema. Neck: Trachea midline, no thyromegaly or masses palpated, and no cervical lymphadenopathy. Supple, full range of motion without nuchal rigidity, or vertebral point tenderness. No Meningismus. Chest/axilla: Normal chest wall appearance and motion. Nontender with no deformity. No lesions are appreciated. Respiratory: Lungs have equal breath sounds bilaterally, clear to auscultation and percussion. No rales, rhonchi or wheezes noted. No increased work of breathing, no retractions or nasal flaring. Abdomen/GI: Soft, non-tender, with normal bowel sounds. No distension or tympany. No guarding or rebound. No evidence of tenderness throughout. Back: No spinal tenderness. No costovertebral tenderness. Full range of motion. Male : Normal genitalia with no discharge or lesions. Skin: Warm, dry with normal turgor. Normal color with no rashes, no lesions, and no evidence of cellulitis. Neuro: Awake and alert, GCS 15, oriented to person, place, time, and situation. Cranial nerves II-XII grossly intact. Motor strength 5/5 in all extremities. Sensory grossly intact. Cerebellar exam normal. Normal gait. Psych: Awake, alert, with orientation to person, place and time. Behavior, mood, and affect are within normal limits. 15:32 ENT: Exam is negative for 15:32 Chest/axilla: Inspection: normal, Palpation: is normal, Axilla: are normal, Lymph nodes: lymphadenopathy is not appreciated, 15:32 ECG was reviewed by the Attending Physician. Vital Signs: 14:33 BP 178 / 96; Pulse 88; Resp 19; Temp 97; Pulse Ox 74% on R/A; iw 15:00 BP 175 / 104; Pulse 83; Resp 27; Pulse Ox 99% on BiPAP; cm10 15:30 BP 139 / 83; Pulse 82; Resp 20; Pulse Ox 95% on BiPAP; cm10 16:00 BP 108 / 71; Pulse 80; Resp 15; Pulse Ox 97% on BiPAP; cm10 16:30 BP 107 / 74; Pulse 82; Resp 15; Pulse Ox 99% on BiPAP; cm10 17:00 BP 141 / 88; Pulse 80; Resp 21; Pulse Ox 95% on BiPAP; cm10 MDM: 14:27 Patient medically screened. [facility] 12/03 14:48 Order name: Basic Metabolic Panel; Complete Time: 15:52 [facility] 12/03 14:48 Order name: CBC with Diff [facility] 12/03 14:48 Order name: LFT's; Complete Time: 15:52 [facility] 12/03 14:48 Order name: Magnesium; Complete Time: 15:52 [facility] 12/03 14:48 Order name: NT PRO-BNP; Complete Time: 15:52 [facility] 12/03 14:48 Order name: PT-INR; Complete Time: 15:52 [facility] 12/03 14:48 Order name: Troponin HS; Complete Time: 15:52 [facility] 12/03 14:48 Order name: Urinalysis w/ reflexes; Complete Time: 15:52 [facility] 12/03 14:48 Order name: Type And Screen [facility] 12/03 14:53 Order name: Bb Add On bd 12/03 16:37 Order name: Packed RBCs (Additional Unit) [facility] 12/03 16:46 Order name: CBC with Automated Diff [facility] 12/03 16:46 Order name: CBC with Automated Diff [facility] 12/03 16:46 Order name: Comprehensive Metabolic Panel [facility] 12/03 16:46 Order name: Comprehensive Metabolic Panel [facility] 12/03 16:46 Order name: Lipid Profile [facility] 12/03 16:46 Order name: Lipid Profile [facility] 12/03 16:46 Order name: NT PRO-BNP [facility] 12/03 16:46 Order name: NT PRO-BNP [facility] 12/03 16:46 Order name: Protime (+INR) [facility] 12/03 16:46 Order name: Protime (+INR) [facility] 12/03 16:46 Order name: PTT, Activated Partial Thromb [facility] 12/03 16:46 Order name: PTT, Activated Partial Thromb [facility] 12/03 16:46 Order name: Troponin High Sensitivity [facility] 12/03 16:46 Order name: Troponin High Sensitivity [facility] 12/03 16:46 Order name: Troponin High Sensitivity [facility] 12/03 16:46 Order name: Troponin High Sensitivity [facility] 12/03 17:21 Order name: ABO/RH no charge [facility] 12/03 20:46 Order name: CBC Smear Scan [facility] 12/03 14:48 Order name: XRAY Chest (1 view) [facility] 12/03 16:46 Order name: Echo with Doppler [facility] 12/03 16:46 Order name: CONS Physician Consult [facility] 12/03 14:48 Order name: Cardiac monitoring; Complete Time: 15:10 [facility] 12/03 14:48 Order name: EKG - Nurse/Tech; Complete Time: 15:10 [facility] 12/03 14:48 Order name: IV Saline Lock; Complete Time: 15:10 [facility] 12/03 14:48 Order name: Labs collected and sent; Complete Time: 15:10 [facility] 12/03 14:48 Order name: O2 Per Protocol; Complete Time: 15:10 [facility] 12/03 14:48 Order name: O2 Sat Monitoring; Complete Time: 15:10 [facility] 12/03 14:48 Order name: Cavanaugh; Complete Time: 15:10 [facility] 12/03 14:50 Order name: IV Saline Lock - Large Bore; Complete Time: 15:10 [facility] EC:32 Rate is 83 beats/min. Rhythm is regular. QRS [place] is Normal. [place] interval is normal. QT meg interval is normal. No Q waves. T waves are Normal. No ST changes noted. Clinical impression: Abnormal EKG without significant change and No evidence of ischemia. Interpreted by me. Reviewed by me. Administered Medications: 15:09 Drug: morphine IVP or IV 2 mg IVP once over 4 mins Route: IVP; Infused Over: 4 mins; cm10 Site: left forearm; 15:32 Follow up: Response: No adverse reaction cm10 15:10 Drug: Nitroglycerin Transdermal Ointment 2 % 1 inches Transdermal once Route: cm10 Transdermal; Site: anterior chest wall; 15:10 Drug: Furosemide IVP 60 mg IVP once; give over 2 minutes Route: IVP; Site: left forearm;cm10 15:32 Follow up: Response: No adverse reaction cm10 15:10 Drug: Famotidine IVP 20 mg IVP once; dilute with 10 mL 0.9% NaCl; give over 2 minutes cm10 Route: IVP; Site: left forearm; 15:32 Follow up: Response: No adverse reaction cm10 15:10 Drug: Ondansetron IVP 4 mg IVP once; over 2 minutes Route: IVP; Site: left forearm; cm10 15:32 Follow up: Response: No adverse reaction cm10 Disposition Summary: 12/04/23 16:02 Hospitalization Ordered Notes: Hospitalization Status: Inpatient Admission meg Provider: Surya Alcazar cha Condition: Stable meg Problem: new meg Symptoms: have improved meg Bed/Room Type: Standard meg Location: Telemetry/MedSurg (Inpatient)(12/04/23 22:02) cg Room Assignment: [facility](12/04/23 22:02) cg Diagnosis - Chronic combined systolic (congestive) and diastolic (congestive) heart failure meg - Hypoxemia meg - Hypertensive heart and chronic kidney disease without heart failure, with stage 1 meg through stage 4 chronic kidney disease, or unspecified chronic kidney disease - Generalized edema meg - Essential (primary) hypertension meg - Presence of cardiac pacemaker meg Forms: - Medication Reconciliation Form meg - SBAR form meg - Leadership Thank You Letter meg Signatures: Dispatcher [employer] EDMS Berkley Muse Corey, MD MD cha Williams, Irene, RN RN iw Garcia, Cindy, RN RN cg Martinez, Clarissa, RN RN cm10 Corrections: (The following items were deleted from the chart) 14:49 14:49 BASIC METABOLIC PANEL+C.LAB.BRZ ordered. EDMS EDMS 14:49 14:49 CBC+H.LAB.BRZ ordered. EDMS EDMS 14:49 14:49 HEPATIC FUNCTION+C.LAB.BRZ ordered. EDMS EDMS 14:49 14:49 MAGNESIUM+C.LAB.BRZ ordered. EDMS EDMS 14:49 14:49 PROBNP+C.LAB.BRZ ordered. EDMS EDMS 14:49 14:49 PROTIME (+INR)+COAG.LAB.BRZ ordered. EDMS EDMS 14:49 14:49 Troponin High Sensitivity+C.LAB.BRZ ordered. EDMS EDMS 14:49 14:49 Urinalysis+U.LAB.BRZ ordered. EDMS EDMS 14:49 14:49 TYPE AND SCREEN+BB.LAB.BRZ ordered. EDMS EDMS 14:49 14:49 Chest Single View+RAD.RAD.BRZ ordered. EDMS EDMS 14:49 14:49 BiPap ([employer] Only)+RC.RAD.BRZ ordered. EDMS EDMS 16:56 16:02 Telemetry/MedSurg (Inpatient) meg bd 16:56 16:02 [facility] bd 22:02 16:56 BR ER HOLD bd cg 22:02 16:56 ERHOLD- bd cg
--- NOTE | 2023-12-04 16:16 | RAD REPORT ---
EXAMINATION: ONE VIEW CHEST XR CLINICAL INDICATION: Male, 68 years old. BR MAIN DYSPNEA Bed Name: 4 TECHNIQUE: Frontal chest projection is submitted. Examination is limited by patient positioning and t echnique. COMPARISON: 11/21/2023 FINDINGS: Progressive central interstitial prominence with fluffy perihilar opacities. Suspected small bilatera l effusions particularly on the left. No pneumothorax.. The heart is normal in size. Left chest wall pacer/AICD in place. IMPRESSION: Findings suggesting of progressive pulmonary edema as above.
[2023-12-04] MEDS ORDERED: ONDANSETRON 4 MG/2 ML VIAL IV PRN (16:39)
[2023-12-04] MEDS ORDERED: MORPHINE 2 MG/ML SYR IV PRN (16:39)
[2023-12-04] MEDS ORDERED: ACETAMINOPHEN 500 MG TAB PO PRN (16:39)
--- NOTE | 2023-12-04 16:46 | P.HP ---
Certification for Inpatient Patient admitted to: Inpatient With expected LOS: >2 Midnights Patient will require the following post-hospital care: None Practitioner: I am a practitioner with admitting privileges, knowledge of patient current condition, hospital course, and medical plan of care. Services: Services provided to patient in accordance with Admission requirements found in Title 42 Section 412.3 of the Code of Federal Regulations Patient History Date of Service: 12/04/23 Reason for admission: Acute CHF exacerbation History of Present Illness: Patient is a 68-year-old gentleman who came to the hospital with shortness of breath. Patient has orthopnea and PND. Patient has had recent episode for acute CHF exacerbation. Patient has heart failure with preserved ejection fraction; however, patient with severe TR and moderate pulmonary hypertension. Patient states that he is felt like he could not get his breath for the last few days. He is not able to lay flat. He gets tired really quickly from short ambulations. In the emergency room he was found to be severely hypoxic. Patient is O2 sats were 84% on room air. Patient was started on 3 L of oxygen and O2 sats are in the low 90s. At this time, patient will be admitted to the hospital for acute CHF exacerbation. Allergies apixaban [From Eliquis] Allergy (Severe, Verified 02/21/23 08:19) Itching/Hives/Rash tramadol Allergy (Severe, Verified 02/21/23 08:19) Nausea/Vomiting clopidogrel [From Plavix] Allergy (Intermediate, Verified 02/21/23 08:19) Itching/Hives/Rash dabigatran etexilate [From Pradaxa] Allergy (Verified 02/21/23 08:19) Hives/Rash rivaroxaban [From Xarelto] Allergy (Verified 02/21/23 08:19) Hives/Rash Adhesives Allergy (Severe, Uncoded 02/21/23 08:19) Rash/Whelps Home Medications: Meclizine HCl 12.5 mg PO DAILY MDD 25 06/05/20 Allopurinol 300 mg PO DAILY 06/06/21 Escitalopram Oxalate 20 mg PO DAILY 06/06/21 Tamsulosin [Flomax*] 0.4 mg PO BID 06/06/21 Baclofen 10 mg PO DAILY PRN 01/25/23 Gabapentin 300 mg PO TID 01/25/23 Pantoprazole [Protonix Tab*] 40 mg PO BEDTIME 01/25/23 Albuterol Sulfate [Albuterol Sulfate Hfa] 2 puff IH Q4H PRN #1 inhaler 11/22/23 Furosemide [Lasix*] 20 mg PO DAILY #30 tab 11/22/23 Sotalol HCl [Betapace*] 80 mg PO BID 6AM 6PM #60 tab 11/22/23 Ergocalciferol (Vitamin D2) [Vitamin D 50,000 Unit Cap] 1 cap PO EVERY 7TH DAY 12/05/23 Levothyroxine [Synthroid*] 88 mcg PO BEDTIME 12/05/23 Levothyroxine [Synthroid*] 100 mcg PO DAILY 12/05/23 Ramipril [Altace] 5 mg PO DAILY 12/05/23 - Past Medical/Surgical History Diabetic: No -: 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 arm -: apendectomy -: pacemaker Psychosocial/ Personal History: Patient is retired, lives at home with his - Family History Father Medical History: Heart disease, Kidney disease Notes: sacoidosis Mother Medical History: Heart disease Notes: dementia, alzheimers Brother Medical History: Heart disease, Stroke - Social History Smoking Status: Former smoker Alcohol use: No CD- Drugs: No Caffeine use: Yes Review of Systems 10-point ROS is otherwise unremarkable Physical Examination - Vital Signs Temperature: 98 F Blood Pressure: 120/70 Pulse: 84 Respirations: 24 Pulse Ox (%): 99 - Physical Exam General: Alert, In no apparent distress, Oriented x3 HEENT: Atraumatic, PERRLA, Mucous membr. moist/pink, EOMI, Sclerae nonicteric Neck: Supple, 2+ carotid pulse no bruit, No LAD, JVD distended Respiratory: Diminished, Crackles/rales Cardiovascular: Regular rate/rhythm, Normal S1 S2, Systolic murmur Gastrointestinal: Normal bowel sounds, Soft and benign, Non-distended, No tenderness Musculoskeletal: No clubbing, No swelling, No tenderness Integumentary: No rashes Neurological: Normal gait, Normal speech, Normal strength at 5/5 x4 extr, Normal tone, Sensation intact, Cranial nerves 3-12 intact, Normal affect Lymphatics: No axilla or inguinal lymphadenopathy - Studies Laboratory Data (last 24 hrs) 12/04/23 12/04/23 12/04/23 14:45 14:45 14:45 WBC 7.90 Hgb 11.5 L Hct 37.7 L Plt Count 318 PT 12.4 INR 1.11 Sodium 137 Potassium 5.5 H BUN 29 H Creatinine 1.87 H Glucose 124 H Magnesium 2.4 Total Bilirubin 0.4 AST 29 ALT 31 Alkaline Phosphatase 81 Assessment & Plan - Problems (Diagnosis) (1) Heart failure with preserved ejection fraction Current Visit: Yes Status: Acute (2) Acute on chronic diastolic CHF (congestive heart failure) Onset Date: 02/01/18 Current Visit: No Status: Acute (3) Atrial fibrillation Onset Date: 03/15/17 Current Visit: No Status: Chronic Qualifiers: (4) BPH (benign prostatic hyperplasia) Onset Date: 03/15/17 Current Visit: No Status: Chronic Qualifiers: (5) Depression Onset Date: 03/15/17 Current Visit: No Status: Chronic Qualifiers: Depression Type: unspecified Qualified Code(s): F32.9 - Major depressive disorder, single episode, unspecified (6) HTN (hypertension) Onset Date: 03/15/17 Current Visit: No Status: Chronic (7) History of CVA (cerebrovascular accident) Current Visit: No Status: Chronic (8) Hyperlipidemia Onset Date: 03/15/17 Current Visit: No Status: Chronic Qualifiers: Hyperlipidemia type: unspecified Qualified Code(s): E78.5 - Hyperlipidemia, unspecified (9) Hypothyroidism Current Visit: No Status: Chronic Qualifiers: Hypothyroidism type: unspecified Qualified Code(s): E03.9 - Hypothyroidism, unspecified - Plan 1. Acute CHF exacerbation/heart failure with preserved ejection fraction; continue with diuresing patient. Continue with intravenous Lasix. Recent echocardiogram with an EF of 60% with moderate pulmonary hypertension but severe TR. Monitor potassium levels. Repeat chest x-ray over the next 48 hours. Wean off home oxygen. Currently on 3 L and O2 sats are in the low 90s. Will aggressively diurese patient and repeat O2 sats in arrange for home oxygen as needed 2. Atrial fibrillation; rate controlled and continue with anticoagulation 3. Chronic kidney disease stage III; continue monitoring renal function 4. Moderate pulmonary hypertension; continue with O2 per protocol 5. Discharge Plan: Home Plan to discharge in: Greater than 2 days - Advance Directives Does patient have a Living Will: No Does patient have a Durable POA for Healthcare: No - Code Status/Comfort Care Code Status Assessed: Yes Code Status: Full Code Critical Care: No Time Spent Managing PTS Care (In Minutes): 45
[2023-12-04] MEDS ORDERED: NA CHLORIDE 0.9% 1,000 ML IV SCH (17:00)
[2023-12-04] MEDS ORDERED: FUROSEMIDE 40 MG/4 ML VIAL ONE (18:31)
[2023-12-04] MEDS: FUROSEMIDE 40 MG/4 ML VIAL IV SCH (18:40)
[2023-12-04] MEDS ORDERED: ALBUMIN HUMAN 25% 100 ML IV ONE (20:42)
[2023-12-04 20:45] LABS: Anisocytosis 1+; Blood Morphology Comment NOTED (NOT SEEN); Platelet Estimate ADEQ; Poikilocytosis 1+; White Blood Cell Scan OK (OK)
[2023-12-04] MEDS: ALBUMIN HUMAN 25% 100 ML IV SCH (20:54)
[2023-12-04] MEDS: POTASSIUM 25 MEQ EFFERV TAB PO SCH (21:00)
[2023-12-05 07:21] LABS: Absolute Basophils 0.1 K/uL (0-0.5); Absolute Eosinophils 0.3 K/uL (0-0.5); Absolute Lymphocytes (CBC) 0.8 K/uL (0.7-4.9); Absolute Monocytes 0.6 K/uL (0.1-1.3); Absolute Neutrophil 4.7 K/uL (1.8-8.0); Basophils % 0.8 % (0-1.3); Eosinophils % 4.3 % (0-4.4); Hematocrit 32.6 % (39.6-49.0); Hemoglobin 9.9 g/dL (13.6-17.9); Lymphocytes % 12.8 % (15.3-44.8); MCH 27.6 pg (27.0-35.0); MCHC 30.3 g/dL (32.0-36.0); MPV 8.1 fL (7.6-11.3); Monocytes % 8.8 % (3.3-12.3); Neutrophils % 73.3 % (41.7-73.7); Nucleated Red Blood Cells % 0.1 % (0-0); Platelets 227 thou/uL (152-406); RBC Red Blood Cell Count 3.58 M/uL (4.33-5.43); Red Cell Distribution Width 27.1 % (12.1-15.2)
[2023-12-05 07:23] LABS: PT Prothrombin Time 12.7 SECONDS (9.4-12.5); PTT, Activated Partial Thromb 37.4 SECONDS (24.3-36.9); Protime INR 1.14
[2023-12-05 07:38] LABS: Albumin 2.9 g/dL (3.4-5.0); Albumin/Globulin Ratio 0.8 (1.1-1.8); Anion Gap 7.1 mEq/L (5.0-15.0); Bilirubin Total 0.5 mg/dL (0.2-1.0); Globulin 3.7 g/dL (2.3-3.5); Potassium 4.1 mEq/L (3.5-5.1); Protein, Total 6.6 g/dL (6.4-8.2); Troponin High Sensitivity 20.1 pg/mL (<58.9)
[2023-12-05] MEDS: ENOXAPARIN 40 MG/0.4 ML SQ SCH (09:36)
[2023-12-05] MEDS: PNEUMOCOCCAL VACCINE 0.5 ML IMVAC ONE (09:37)
--- NOTE | 2023-12-05 12:01 | P.CNS ---
Date of Consult: 12/05/23 History of Present Illness: Patient with PMH of atrial fibrillation, CAD s/p CABG, Heart failure preserved EF presented with worsening SOB, bilateral lower extremities edema, dneies chest pain, no palpitations, no dizzy spells, no syncope. Allergies apixaban [From Eliquis] Allergy (Severe, Verified 02/21/23 08:19) Itching/Hives/Rash tramadol Allergy (Severe, Verified 02/21/23 08:19) Nausea/Vomiting clopidogrel [From Plavix] Allergy (Intermediate, Verified 02/21/23 08:19) Itching/Hives/Rash dabigatran etexilate [From Pradaxa] Allergy (Verified 02/21/23 08:19) Hives/Rash rivaroxaban [From Xarelto] Allergy (Verified 02/21/23 08:19) Hives/Rash Adhesives Allergy (Severe, Uncoded 02/21/23 08:19) Rash/Whelps Home medications list reviewed: Yes Home Medications: Meclizine HCl 12.5 mg PO DAILY MDD 25 06/05/20 Allopurinol 300 mg PO DAILY 06/06/21 Escitalopram Oxalate 20 mg PO DAILY 06/06/21 Tamsulosin [Flomax*] 0.4 mg PO BID 06/06/21 Baclofen 10 mg PO DAILY PRN 01/25/23 Gabapentin 300 mg PO TID 01/25/23 Pantoprazole [Protonix Tab*] 40 mg PO BEDTIME 01/25/23 Albuterol Sulfate [Albuterol Sulfate Hfa] 2 puff IH Q4H PRN #1 inhaler 11/22/23 Furosemide [Lasix*] 20 mg PO DAILY #30 tab 11/22/23 Sotalol HCl [Betapace*] 80 mg PO BID 6AM 6PM #60 tab 11/22/23 Ergocalciferol (Vitamin D2) [Vitamin D 50,000 Unit Cap] 1 cap PO EVERY 7TH DAY 12/05/23 Levothyroxine [Synthroid*] 88 mcg PO BEDTIME 12/05/23 Levothyroxine [Synthroid*] 100 mcg PO DAILY 12/05/23 Ramipril [Altace] 5 mg PO DAILY 12/05/23 - Past Medical/Surgical History Diabetic: No -: 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 eye surgery -: heart stents -: Hernia repair -: thyroid surgery -: Nerve re-channeling to R. arm -: apendectomy -: pacemaker Psychosocial/ Personal History: Patient is retired, lives at home with his - Family History Father Medical History: Heart disease, Kidney disease Notes: sacoidosis Mother Medical History: Heart disease Notes: dementia, alzheimers Brother Medical History: Heart disease, Stroke - Social History Smoking Status: Unknown if ever smoked Alcohol use: No CD- Drugs: No Caffeine use: Yes Place of Residence: Home Review of Systems 10-point ROS is otherwise unremarkable Physical Examination Temp Pulse Resp BP Pulse Ox 97.0 F 83 16 120/68 99 12/05/23 08:00 12/05/23 09:36 12/05/23 08:00 12/05/23 09:36 12/05/23 08:00 General: Alert, In no apparent distress HEENT: Atraumatic, PERRLA, Mucous membr. moist/pink, EOMI, Sclerae nonicteric Neck: Supple, 2+ carotid pulse no bruit, No LAD, Without JVD or thyroid abnormality Respiratory: Clear to auscultation bilaterally, Normal air movement Cardiovascular: Regular rate/rhythm, Normal S1 S2, Edema Gastrointestinal: Normal bowel sounds, No tenderness Musculoskeletal: No tenderness Integumentary: No rashes Neurological: Normal gait, Normal speech, Normal tone, Normal affect Lymphatics: No axilla or inguinal lymphadenopathy Laboratory Data (last 24 hrs) 12/04/23 12/04/23 12/04/23 14:45 14:45 14:45 WBC 7.90 Hgb 11.5 L Hct 37.7 L Plt Count 318 PT 12.4 INR 1.11 Sodium 137 Potassium 5.5 H BUN 29 H Creatinine 1.87 H Glucose 124 H Magnesium 2.4 Total Bilirubin 0.4 AST 29 ALT 31 Alkaline Phosphatase 81 - Problems (1) Acute on chronic diastolic CHF (congestive heart failure) Onset Date: 02/01/18 Current Visit: No Status: Acute Plan: Lasix 40 mg IV BID Continue to monitor input and output Continue to monitor and correct electrolytes. (2) Atrial fibrillation Onset Date: 03/15/17 Current Visit: No Status: Chronic Plan: Continue Sotalol 80 mg po BID Eliquis 5 mg po BID Qualifiers: (3) HTN (hypertension) Onset Date: 03/15/17 Current Visit: No Status: Chronic Plan: Diuresis for now and monitor BP.
[2023-12-05] MEDS ORDERED: BACLOFEN 10 MG TAB PO PRN (20:58)
--- NOTE | 2023-12-05 21:17 | P.PN ---
Subjective Date of Service: 12/05/23 Subjective: No new changes, No C/O voiced, Improving Patient's room air oxygen saturation was 86% on room air. Will arrange for home oxygen. Review of Systems 10-point ROS is otherwise unremarkable Physical Examination - Vital Signs Temperature: 98 F Blood Pressure: 120/70 Pulse: 84 Respirations: 24 Pulse Ox (%): 99 - Physical Exam General: Alert, In no apparent distress, Oriented x3 Respiratory: Crackles/rales Cardiovascular: Regular rate/rhythm, Normal S1 S2, No murmurs Gastrointestinal: Normal bowel sounds, Soft and benign, Non-distended, No tenderness, No rebound, No guarding Musculoskeletal: No clubbing, No tenderness, Swelling Integumentary: No rashes Neurological: Sensation intact, Cranial nerves 3-12 intact Lymphatics: No axilla or inguinal lymphadenopathy - Studies Medications List Reviewed: Yes Assessment & Plan - Problems (Diagnosis) (1) Acute on chronic diastolic CHF (congestive heart failure) Onset Date: 02/01/18 Current Visit: No Status: Acute (2) Heart failure with preserved ejection fraction Current Visit: Yes Status: Acute (3) Atrial fibrillation Onset Date: 03/15/17 Current Visit: No Status: Chronic Qualifiers: (4) BPH (benign prostatic hyperplasia) Onset Date: 03/15/17 Current Visit: No Status: Chronic Qualifiers: (5) Depression Onset Date: 03/15/17 Current Visit: No Status: Chronic Qualifiers: Depression Type: unspecified Qualified Code(s): F32.9 - Major depressive disorder, single episode, unspecified (6) HTN (hypertension) Onset Date: 03/15/17 Current Visit: No Status: Chronic (7) History of CVA (cerebrovascular accident) Current Visit: No Status: Chronic (8) Hyperlipidemia Onset Date: 03/15/17 Current Visit: No Status: Chronic Qualifiers: Hyperlipidemia type: unspecified Qualified Code(s): E78.5 - Hyperlipidemia, unspecified (9) Hypothyroidism Current Visit: No Status: Chronic Qualifiers: Hypothyroidism type: unspecified Qualified Code(s): E03.9 - Hypothyroidism, unspecified - Plan Continue with plan of care as mentioned below: 1. Acute CHF exacerbation/heart failure with preserved ejection fraction; continue with diuresing patient. Continue with intravenous Lasix. Recent echocardiogram with an EF of 60% with moderate pulmonary hypertension but severe TR. Monitor potassium levels. Repeat chest x-ray over the next 48 hours. Wean off home oxygen. Currently on 3 L and O2 sats are in the low 90s. Will aggressively diurese patient and repeat O2 sats in arrange for home oxygen as needed 2. Atrial fibrillation; rate controlled and continue with anticoagulation 3. Chronic kidney disease stage III; continue monitoring renal function 4. Moderate pulmonary hypertension; continue with O2 per protocol 5. - Advance Directives Does patient have a Living Will: No Does patient have a Durable POA for Healthcare: No - Code Status/Comfort Care Code Status: Full Code
[2023-12-05] MEDS: GABAPENTIN 300 MG CAP PO SCH (21:28)
[2023-12-05] MEDS: SOTALOL HCL 80 MG TAB PO ONE (21:28)
[2023-12-05] MEDS: PANTOPRAZOLE 40MG TABLET PO SCH (21:29)
[2023-12-06] MEDS: SOTALOL HCL 80 MG TAB PO SCH (05:42)
[2023-12-06] MEDS: ALBUMIN HUMAN 25% 100 ML IV ONE (08:17)
[2023-12-06] MEDS: LEVOTHYROXINE SOD 0.088 MG TAB PO SCH (08:18)
[2023-12-06] MEDS: ESCITALOPRAM 20 MG TAB PO SCH (08:18)
[2023-12-06] MEDS: allopurinoL 300 MG TAB PO SCH (08:19)
[2023-12-06] MEDS: TAMSULOSIN 0.4 MG SR CAP PO SCH (08:19)
[2023-12-06] MEDS: ramipriL 5 MG CAP PO SCH (09:00)
[2023-12-06 09:56] VITALS: O2SAT 96
--- NOTE | 2023-12-06 10:46 | P.PN ---
Subjective Date of Service: 12/06/23 Chief Complaint: Acute CHF exacerbation Subjective: No new changes, No C/O voiced, Tolerating diet, Ambulating, Improving Review of Systems 10-point ROS is otherwise unremarkable Physical Examination - Vital Signs Temperature: 97.8 F Blood Pressure: 89/55 Pulse: 81 Respirations: 18 Pulse Ox (%): 96 - Physical Exam General: Alert, In no apparent distress HEENT: Atraumatic, PERRLA, EOMI Neck: Supple, JVD not distended Respiratory: Clear to auscultation bilaterally, Normal air movement Cardiovascular: Regular rate/rhythm, Normal S1 S2 Gastrointestinal: Normal bowel sounds, No tenderness Musculoskeletal: No tenderness Integumentary: No rashes Neurological: Normal speech, Normal tone, Normal affect Lymphatics: No axilla or inguinal lymphadenopathy - Studies Medications List Reviewed: Yes Assessment And Plan - Current Problems (Diagnosis) (1) Acute on chronic diastolic CHF (congestive heart failure) Onset Date: 02/01/18 Current Visit: No Status: Acute Plan: Lasix 40 mg IV BID, diuresing well and kidney function stable Rampril 5 mg daily Continue to monitor input and output Continue to monitor and correct electrolytes. (2) Atrial fibrillation Onset Date: 03/15/17 Current Visit: No Status: Chronic Plan: Continue Sotalol 80 mg po BID Eliquis 5 mg po BID Qualifiers: (3) HTN (hypertension) Onset Date: 03/15/17 Current Visit: No Status: Chronic Plan: Diuresis for now and monitor BP.
--- NOTE | 2023-12-06 12:25 | EKG ---
Test Date: 2023-12-04 Test Time: 14:55:38 Traffic Rate Analyst: ES MEASUREMENT RESULTS: Intervals: Rate: 81 MS: QRSD: 184 QT: 452 QTc: 525 [place]: P: 69 MS: QRS: 56 T: 128 INTERPRETIVE STATEMENTS: Sinus rhythm with AV dissociation and Wide QRS rhythm Nonspecific intraventricular block Lateral infarct, age undetermined Abnormal ECG Compared to ECG 11/13/2023 00:47:32 Uncertain supraventricular rhythm now present AV dissociation now present Myocardial infarct finding now present Ventricular-paced complex(es) or rhythm no longer present Electronically Signed On 12-06-23 12:19:07 CDT by Yosvany Blount
--- NOTE | 2023-12-06 12:25 | EKG ---
Test Date: 2023-12-04 Test Time: 14:56:01 Closing Machine Operator: JC MEASUREMENT RESULTS: Intervals: Rate: 83 [place]: QRSD: 182 QT: 456 QTc: 535 [place]: P: 76 [place]: QRS: -16 T: 124 INTERPRETIVE STATEMENTS: Ventricular-paced rhythm Abnormal ECG Compared to ECG 12/04/2023 14:55:38 Sinus rhythm no longer present Uncertain supraventricular rhythm no longer present AV dissociation no longer present Myocardial infarct finding no longer present Electronically Signed On 12-06-23 12:18:58 CDT by Yosvany Blount
[2023-12-06 12:32] LABS: Anion Gap 6.1 mEq/L (5.0-15.0); Potassium 4.1 mEq/L (3.5-5.1)
[2023-12-06] MEDS: FUROSEMIDE 20 MG/ 2ML VIAL IV SCH (18:00)
[2023-12-06 19:58] VITALS: BP 97/57; TEMP 96.2
[2023-12-06 20:09] VITALS: BMI 23.6
== END 2023-12-06 20:05 | disposition home health service (06) | DRG 291 ==
LOC: ER 14:19 → ERHOLD 16:39 → 4TH 22:34
PROVIDERS: ADMIT Hospitalist; ATTEND Hospitalist
PROC: 5A09457 Assistance with Respiratory Ventilation, 24-96 Consecutive Hours, Continuous Positive Airway Pressure (ICD-10-PCS; principal; 2023-12-04)
PROC: 0T9B70Z Drainage of Bladder with Drainage Device, Via Natural or Artificial Opening (ICD-10-PCS; 2023-12-04)
DX: I13.0 Hypertensive heart and chronic kidney disease with heart failure and stage 1 through stage 4 chronic kidney disease, or unspecified chronic kidney disease (principal); I50.33 Acute on chronic diastolic (congestive) heart failure; J96.01 Acute respiratory failure with hypoxia; I48.20 Chronic atrial fibrillation, unspecified; N18.30 Chronic kidney disease, stage 3 unspecified; M10.9 Gout, unspecified; I27.20 Pulmonary hypertension, unspecified; E03.9 Hypothyroidism, unspecified; E78.5 Hyperlipidemia, unspecified; F32.9 Major depressive disorder, single episode, unspecified; K21.9 Gastro-esophageal reflux disease without esophagitis; N40.0 Benign prostatic hyperplasia without lower urinary tract symptoms; I25.2 Old myocardial infarction; I25.10 Atherosclerotic heart disease of native coronary artery without angina pectoris; Z23 Encounter for immunization; Z88.5 Allergy status to narcotic agent; Z95.0 Presence of cardiac pacemaker; Z95.1 Presence of aortocoronary bypass graft; Z95.5 Presence of coronary angioplasty implant and graft; Z88.8 Allergy status to other drugs, medicaments and biological substances; Z90.49 Acquired absence of other specified parts of digestive tract; Z86.73 Personal history of transient ischemic attack (TIA), and cerebral infarction without residual deficits; Z79.890 Hormone replacement therapy; Z79.899 Other long term (current) drug therapy; Z87.891 Personal history of nicotine dependence
CPT/HCPCS: 36415; 51702; 71045; 80048; 80053; 80061; 80076; 81001; 83735; 83880; 84484; 85025; 85610; 85730; 86850; 86900; 86901; 86920; 90471; 90732; 93005; 94660; 96374; 96375; 99285; J1650; J1940; J2270; J2405; P9047

== ENCOUNTER 2024-01-19 21:50 | Emergency (ER) | payer OTHER ==
--- OUTSIDE RECORDS SUMMARY | 2024-01-19 21:53 | XMS REPORT | Continuity of Care Document ---
Author Name Unknown Address [address] [facility] [address] [place] [address] [facility] Address [address] [facility] [place] [address] Care Team Providers Care Hat Trimmer Name Role Phone VIDA AZAR I. Primary Care Physician GOMEZ King Attending Clinician UnavailZAK Berger Attending Clinician UnavailDAVID Jerome Attending Clinician Unavailab GOMEZ Stroud Attending Clinician UnavailALEX Aguilar Attending Clinician Unavailable LAINA VANG Attending Clinician UnaCARLEY Bonilla Attending Clinician Unavailable MOUSTAPHA BANKS Attending Clinician Unavailable MOUSTAPHA BANKS Attending Clinician Unavail able Only, Ang Db Test Attending Clinician UnavailAlfonzo Wolf Attending Clinician [phone] ALFONZO HERMOSILLO Attending Clinician Unavailable Sheila Key RN Attending Clinician Cindy Hutchinson Unassigned, [place] Attending Clinician U DAVID Hernandez Attending Clinician Joaquina VIDA Choi I. Attending Clinician David Quinones MD Attending Clinician [phone] Darius Mcdowell CRNA Attending Clinician [phone] Jim Thakur MD Attending Clinician [phone] Only, Adc Test Attending Clinician Unavailable Nurse, [facility] General Surgery Attending Clinician U DAVID Banda Admitting Clinician CARLOS Blum Admitting Clinician David Cavanaugh MD Admitting Clinician [phone] Payers Payer Name Policy Type Policy Number Effective Date Expirati on Date Source [facility] RENAE [id number] 2020 00:00:00 [employer] MEDICARE ADVANTAGE [id number] 2019 00:00:00 [facility] SUPP[facility] [id number] 2019 00:00:00 [facility] MEDICARE ADVANTAGE [id number] 2016 00:00:00 Problems Condition Name Condition Details [...] 01/10/2018 Andreas Lott Problem Active 2018-01-10 02:57:21 Pranayoria daljit Key Hyperlipid emia, unspecifie d Hyperlipid emia, unspecifie d Active Problem 01/10/2018 Andreas Lott Problem Active 2018-01-10 02:57:21 Memoria daljit Key Chronic kidney disease, unspecifie d Chronic kidney disease, unspecifie d Active Problem 01/10/2018 Andreas Lott Problem Active 2018-01-10 02:57:21 Memoria daljit Key Unspecifie d superficia l injury of [...] Memoria daljit Key 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 Active Problem 01/10/2018 Andreas Lott [...] Problem Active 2018-01-10 02:57:21 Memoria daljit Key Hypertroph y (benign) of prostate without urinary obstructio n and other lower urinary tract symptoms [LUTS] Hypertroph y (benign) of prostate without urinary obstructio n and other lower urinary tract symptoms [LUTS] Active Problem 01/10/2018 Andreas Lott Problem Active 2018-01-10 02:57:21 Memoria daljit Key Chronic kidney disease, Stage III (moderate) [...] Date Inactive Date Treating Clinician Comments Source Shellfis h-Derive d Products Propensi ty to adverse reaction s Active 8-02 00:00: 00 [facility] Apixaban Propensi ty to adverse reaction s Active Itching 2-01 00:00: 00 [facility] Adhesive Tape Propensi ty to adverse reaction s Active 2020-03 2-14 00:00: 00 [facility] Clopidog rel Propensi ty to adverse reaction s Active 2020-03 2-14 00:00: 00 [facility] Tramadol Propensi ty to adverse reaction s Active 2020-03 2- 00:00: 00 [facility] ADHESIVE TAPE-CLIVE ICONES DRUG Active Other-Cmnt 2020-0 4-27 00:00: 00 [facility] APIXABAN DRUG INGREDI Active Rash 2020-0 4-27 00:00: 00 [facility] CLOPIDOG REL DRUG INGREDI Active Other-Cmnt 2020-0 4-27 00:00: 00 [facility] DABIGATR AN ETEXILAT E DRUG INGREDI Active Rash 2020-0 4-27 00:00: 00 [facility] Adhesive Tape-Clive icones Propensi ty to adverse reaction s Active Other - See comments 2020-0 4-27 00:00: 00 blisters [facility] Apixaban Propensi ty to adverse reaction s Active Rash 2020-0 4-27 00:00: 00 [facility] Clopidog rel Propensi ty to adverse reaction s Active Other - See comments 2020-0 4-27 00:00: 00 rash [facility] Dabigatr an Etexilat e Propensi ty to adverse reaction s Active Rash 2020-0 4-27 00:00: 00 [facility] Tramadol Drug Intolera nce Active Other - See comments 2020-0 4-27 00:00: 00 vomit [facility] Rivaroxa ban Propensi ty to adverse reaction s Active Rash 2020-0 4-27 00:00: 00 [facility] TRAMADOL DRUG INGREDI Active Other-Cmnt 07-13 00:00: 00 [facility] RIVAROXA BAN DRUG INGREDI Active Rash 07-13 00:00: 00 [facility] plavix plavix Active Info Not Available 2016-03 00:00: 00 Oh Key Social History Social Habit Start Date Stop Date Quantity Comments Source Sexual orientation [facility] Alcoholic beverage intake 2023-12-12 00:00:00 2023-12-12 00:00:00 Lifetime non-drinker (finding) [facility] History of Social function 2023-10-18 00:00:00 2023-10-18 00:00:00 [facility] Tobacco use and exposure 2022-08-28 00:00:00 2022-08-28 00:00:00 Smokeless tobacco non-user [facility] Exposure to SARS-CoV-2 (event) 2021-09-20 00:00:00 2021-09-30 18:39:00 Yes [facility] Sex assigned at 1955 00:00:00 1955 00:00:00 [facility] Smoking Status Start Date Stop Date Source Never smoked tobacco [facility] Medications Ordered Medication Name Filled Medication Name Start Date Stop Date Current Medication? Ordering Clinician Indication Dosage Frequency Signature (SIG) Comments Components Source aspirin 81 MG EC tablet 12-11 11:34: 27 Yes 81mg QD Take 81 mg by mouth 1 (one) time each day. [facility] colchicine- probenecid 0.5-500 MG tablet 12-11 11:01: 37 Yes 1{tbl} Q.5D Take 1 tablet by mouth in the morning and 1 tablet in the evening. [facility] diphenhydrA MINE (BENADryl) 25 MG capsule 12-11 11:01: 37 Yes Q6H Take by mouth every 6 (six) hours if needed for itching. [facility] allopurinol (Zyloprim) 100 MG tablet 12-11 11:01: 16 12-11 00:00 :00 No 100mg QD Take 100 mg by mouth 1 (one) time each day. [facility] nitroglycer in (Nitrostat) 0.4 MG SL tablet 12-11 11:00: [address] 0.4 mg under the tongue every 5 (five) minutes if needed for chest pain. [facility] tamsulosin (Flomax) 0.4 MG 24 hr capsule 12-11 10:59: 39 Yes .4mg Q.5D Take 0.4 mg by mouth 2 (two) times a day. [facility] levothyroxi ne (Tirosint) 88 MCG capsule 12-11 10:59: 39 Yes Take by mouth 1 (one) time each day before breakfast. [facility] gabapentin (Neurontin) 100 MG capsule 12-11 10:58: 06 12-11 00:00 :00 No 100mg Q.[id number] 3D Take 100 mg by mouth 3 (three) times a day. [facility] meclizine (Antivert) 25 MG tablet 12-11 10:58: 03 Yes 12.5mg Q.5D Take 12.5 mg by mouth 2 (two) times a day if needed for dizziness. [facility] ramipril (Altace) 5 MG capsule 12-11 10:58: 03 Yes 5mg QD Take 5 mg by mouth 1 (one) time each day. [facility] escitalopra m (Lexapro) 20 MG tablet 12-11 10:58: 03 Yes 20mg QD Take 20 mg by mouth 1 (one) time each day. [facility] pantoprazol e (ProtoNix) 40 MG EC tablet 12-11 10:58: 03 Yes 40mg Take 40 mg by mouth 1 (one) time each day before breakfast. Do not crush, chew, or split. [facility] sotalol (Betapace) 120 MG tablet 12-11 10:58: 03 Yes 120mg Q.5D Take 120 mg by mouth every 12 (twelve) hours. [facility] baclofen (Lioresal) 10 MG tablet 12-11 10:58: 03 Yes 10mg Q.[id number] 3D Take 10 mg by mouth 3 (three) times a day. [facility] furosemide (Lasix) 20 MG tablet 2024-0 9-05 00:00: 00 Yes 20mg 20 mg. [facility] budesonide (Pulmicort) 0.5 MG/2ML nebulizer solution 802 00:00: 00 Yes [id number] .5mg Q.5D Take 2 mL (0.5 mg total) by nebulizati on in the morning and 2 mL (0.5 mg total) before bedtime. Rinse mouth with water after use to reduce aftertaste and incidence of candidiasi s. Do not swallow.. [facility] SUMAtriptan (Imitrex) 100 MG tablet 6-24 00:00: 00 Yes 100mg Take 100 mg by mouth 1 (one) time if needed. [facility] allopurinol (Zyloprim) 300 MG tablet 24 00:00: 00 Yes [facility] gabapentin (Neurontin) 300 MG capsule 18 00:00: 00 Yes [facility] levothyroxi ne (Synthroid, Levoxyl) 88 MCG tablet 14 00:00: 00 12-11 00:00 :00 No [facility] levothyroxi ne (Synthroid, Levoxyl) 100 MCG tablet -12 00:00: 00 Yes [facility] chlorhexidi ne (Hibiclens) 4 % external liquid 2020-03 214 00:00: 00 Yes [id number] Apply topically 1 (one) time each day if needed for wound care. Apply once the night or day of procedure. [facility] diphenhydrA MINE (BENADRYL) 25 mg capsule 08-05 14:15: 57 Yes 50mg Take 50 mg by mouth daily. [facility] naproxen (NAPROSYN ORAL) 5-20 14:15: 57 Yes 220{cap nevaeh} Take 220 capsules by mouth daily. [facility] PROBENECID- COLCHICINE ORAL -20 14:15: 57 Yes 500{cap nevaeh} Take 500 capsules by mouth daily. [facility] BACLOFEN ORAL 5-20 14:15: 57 Yes 200{cap nevaeh} Take 200 capsules by mouth daily. [facility] allopurinoL 100 mg tablet 08-05 14:15: 57 Yes 100mg Take 100 mg by mouth daily. [facility] escitalopra m oxalate (LEXAPRO) 20 mg tablet 08-05 14:15: 57 Yes 20mg Take 20 mg by mouth daily. [facility] pantoprazol e 20 mg EC tablet 08-05 14:15: 57 Yes 20mg Take 20 mg by mouth daily. [facility] ramipril 5 mg capsule 08-05 14:15: 57 Yes 5mg Take 5 mg by mouth daily. [facility] sotalol (SOTALOL AF) 120 mg tablet 08-05 14:15: 57 Yes 120mg Take 120 mg by mouth daily. [facility] Levothyroxi ne 137 mcg Cap 08-05 14:15: 57 Yes 137{cap nevaeh} Take 137 capsules by mouth daily. [facility] tamsulosin 0.4 mg 24 hr capsule 08-05 14:15: 57 Yes .4mg Take 0.4 mg by mouth daily. [facility] Flomax 2017-03 02:57: 21 Yes Karoline Rivera TAKE ONE CAPSULE BY MOUTH DAILY 30 MINUTES BEFORE SAME MEAL [facility] Escitalopra m Oxalate 2017-03 02:57: 21 Yes Karoline Rivera TAKE ONE TABLET BY MOUTH DAILY [facility] Amlodipine Besylate 2017-03 02:57: 21 Yes Karoline Rivera 1 tablet Memlucio Key Baclofen 2017-03 02:57: 21 Yes Karoline Rivera TAKE ONE TABLET BY MOUTH EVERY SIX HOURS NEEDED [facility] Levothyroxi ne Sodium 2017-03 02:57: 21 Yes Karoline Rivera TAKE ONE TABLET BY MOUTH DAILY ON SUNDAY TO SUNDAY AND SUNDAY AND SUNDAY [facility] Ramipril 2017-03 02:57: 21 Yes Karoline Rivera TAKE ONE CAPSULE BY MOUTH DAILY [facility] Pantoprazol e Sodium 2017-03 02:57: 21 Yes Karoline Rivera 1 tablet Memlucio Key Sotalol HCl 2017-03 02:57: 21 Yes [...] Rivera 1 tablet Memori a daljit Key Allopurinol 09-05 00:00: 00 Yes Karoline Rivera TAKE ONE TABLET BY MOUTH DAILY [facility] Synthroid 2015-03 00:00: 00 Yes Karoline Rivera 1 tablet [facility] [place] Palmetto 11-13 00:00: 00 Yes Karoline Rivera 1 tablet as needed Memoria daljit [facility] Cholestyram ine 10-07 00:00: 00 Yes Karoline Rivera 1 packet mixed with water or non-carbon ated drink [facility] Clonazepam 08-31 00:00: 00 Yes Karoline Rivera 1 tablet [facility] Clonidine HCl 11-24 00:00: 00 Yes Karoline Rivera 1 tablet [facility] [place] Vital Signs Vital Name Observation Time Observation Value Comments S ource BMI 2023-12-12 16:02:00 26.45 kg/m2 [facility] Systolic blood pressure 2023-12-12 16:02:00 146 mm[Hg[facility] Diastolic blood pressure 2023-12-12 16:02:00 88 mm[Hg] [facility] Heart rate 2023-12-12 16:02:00 86 /min [facility] Body height 2023-12-12 16:02:00 188 [facility] Body weight 2023-12-12 16:02:00 93.441 kg [facility] Weight 2017-03-09 18:30:00 [facility] Height 2017-03-09 18:30:00 [facility] Respitory Rate 2017-03-09 18:30:00 [facility] Heart Rate 2017-03-09 18:30:00 [facility] Diastolic (mm Hg) 2017-03-09 18:30:00 [facility] Systolic (mm Hg) 2017-03-09 18:30:00 [facility] Temperature Oral (F) 2017-03-09 18:30:00 97.4 F [facility] Procedures Procedure Date / Time Performed Performing Clinicia n Source ECG 12-LEAD 2023-12-12 18:02:38 Gomez Camacho [facility] NOTICE OF BILLING PRACTICES FOR MEDICARE PATIENTS 2021-04-28 21:54:19 Doctor Unassigned, [place] [facility] ASSIGNMENT OF BENEFITS 2021-04-28 21:54:02 Docto r Unassigned, [place] [facility] Encounters Start Date/Time End Date/Time Encounter Type Admission Type Attending Clinicians Care Facility Care Department Encounter ID Source 2022-10-13 13:53:50 Outpatient [facility] [id number] [facility] 2022-10-01 19:18:27 Outpatient [facility] [id number] [facility] 2022-09-29 02:44:20 Outpatient [facility] [id number] [facility] 2022-09-13 10:24:37 Outpatient [facility] [id number] [facility] 2022-09-04 16:20:31 Outpatient [facility] [id number] [facility] 2022-08-15 11:40:55 Outpatient [facility] [id number] [facility] 2022-07-20 15:42:29 Outpatient [facility] [id number] [facility] 2022-06-20 13:41:58 Outpatient [facility] [id number] [facility] 2022-04-11 12:43:29 Outpatient [facility] [id number] [facility] 2022-04-05 11:39:25 Outpatient [facility] [id number] [facility] 2021-12-11 08:39:01 Outpatient [facility] [id number] [facility] 2021-09-13 13:01:37 Outpatient GOMEZ CAMACHO [facility] [id number] [facility] 2021-08-23 09:19:23 Outpatient [facility] [id number] [facility] 2021-06-14 10:21:53 Outpatient BRIEN IANTRAVIS [facility] [id number] [facility] 2021-06-11 10:00:13 Outpatient [facility] [id number] [facility] 2021-05-17 14:54:16 Outpatient ZAK TESFAYE [facility] [id number] [facility] 2021-04-28 16:42:22 Outpatient ZAK TESFAYE [facility] [id number] [facility] 2021-04-13 11:50:38 Outpatient ZAK TESFAYE [facility] [id number] [facility] 2021-03-01 11:36:41 Outpatient [facility] [id number] [facility] 2021-03-01 09:47:40 Outpatient GOMEZ CAMACHO [facility] [id number] [facility] 2021-02-25 10:48:59 Outpatient ZAK TESFAYE [facility] [id number] [facility] 2021-02-18 10:34:54 Outpatient GOMEZ CAMACHO [facility] [id number] [facility] 2021-01-13 19:20:35 Outpatient DAVID HALL [facility] ALEE [id number] [facility] 2021-01-13 19:20:35 Outpatient DAVID HALL [facility] [id number] [facility] 2021-01-12 14:58:16 Outpatient GOMEZ CAMACHO [facility] [id number] [facility] 2024-04-02 10:45:00 2024-04-02 10:45:00 Outpatient DOUGGOMEZ [facility] [id number] [facility] 2023-12-13 15:00:00 2023-12-13 15:57:50 Outpatient [facility] [id number] [facility] 2023-12-12 10:45:00 2023-12-12 12:10:19 Office Visit DougGomez hilliard [facility] [id number] [facility] [id number] [facility] 2023-12-05 09:15:00 2023-12-05 09:15:00 Outpatient DOUGGOMEZ HILLIARD [facility] [id number] [facility] 2023-10-30 06:25:00 2023-10-30 11:00:00 Outpatient DOUGQUOCGOMEZ [facility] CAR [id number] [facility] 2023-10-18 10:45:00 2023-10-18 12:10:54 Outpatient NADEENALEX [facility] [id number] [facility] 2023-10-18 08:15:00 2023-10-18 08:15:00 Outpatient NADEENALEX [facility] [id number] [facility] 2023-04-18 10:45:00 2023-04-18 11:37:13 Outpatient LAINA VANG [facility] [id number] [facility] 2023-01-01 16:00:00 2023-01-01 16:00:00 Outpatient CARLEY MOSELEY [facility] [id number] [facility] 2022-12-01 09:45:00 2022-12-01 10:37:44 Outpatient MOUSTAPHA BANKS [facility] [id number] [facility] 2022-11-24 05:56:00 2022-11-24 23:59:00 Outpatient MOUSTAPHA BANKS [facility] [id number] [facility] 2022-11-15 10:15:00 2022-11-15 10:15:00 Outpatient MOUSTAPHA BANKS [facility] [id number] [facility] 2022-11-03 09:30:00 2022-11-03 09:30:00 Outpatient MOUSTAPHA BANKS [facility] [id number] [facility] 2022-10-26 08:00:00 2022-10-26 08:00:00 Outpatient MOUSTAPHA BANKS [facility] [id number] [facility] 2022-10-18 11:15:00 2022-10-18 11:46:27 Outpatient MOUSTAPHA BANKS [facility] [id number] [facility] 2022-09-13 10:15:00 2022-09-13 11:27:45 Outpatient GOMEZ CAMACHO [facility] [id number] [facility] 2022-09-05 14:30:00 2022-09-05 14:30:00 Outpatient GOMEZ CAMACHO [facility] [id number] [facility] 2022-08-28 10:45:00 2022-08-28 11:39:21 Outpatient MOUSTAPHA BANKS [facility] [id number] [facility] 2022-04-11 13:00:00 2022-04-11 13:42:00 Outpatient GOMEZ CAMACHO [facility] [id number] [facility] 2021-09-30 18:45:00 2021-09-30 19:00:00 Laboratory Only Only, Ang Db Test Ebrahim, [facility] [id number] [facility] 2021-09-30 18:45:00 2021-09-30 18:45:00 Outpatient [facility] [id number] [facility] 2021-05-02 08:15:00 2021-05-02 15:30:00 Outpatient GOMEZ CAMACHO [facility] [id number] [facility] 2021-04-29 00:00:00 2021-04-29 00:00:00 Letter (Out) Sheila Key [facility] 1.114 350.1.13.10 [id number] [id number] [facility] 2021-04-28 16:00:00 2021-04-28 16:15:00 Laboratory Only Only, Ang Db Test Vinnie [facility] 1.84.114 350.1.13.10 [id number] [id number] [facility] 2021-04-28 16:00:00 2021-04-28 16:00:00 Outpatient R VINNIE [facility] [id number] [facility] 2021-04-28 00:00:00 2021-04-28 00:00:00 Orders Only Doctor Unassigned, [place] [facility] 1..114 350.1.13.10 [id number] [id number] [facility] 2021-04-28 00:00:00 2021-04-28 00:00:00 Letter (Out) Doctor Unassigned, [place] [facility] 1.0.114 350.1.13.10 [id number] [id number] [facility] 2020-10-10 18:02:00 2020-10-11 05:39:00 Emergency E DAVID ANDREWS [facility] [id number] [facility] 2019-11-12 00:00:00 2019-11-12 00:00:00 Outpatient DANGELO AZARVIDA [facility] [id number] MD Eddie miramontes 2019-08-06 11:31:28 2019-08-06 14:15:00 Hospital Encounter Loy David Garcia [facility] [id number] 350.1.13.10 [id number] [id number] 2019-08-06 12:50:00 2019-08-06 13:19:00 Anesthesia Darius Mcdowell David K [facility] [id number] 350.1.13.10 4.2.7.2.686 [id number] 2019-08-05 09:04:50 2019-08-05 09:19:50 Laboratory Only Only, Adc Test [facility] [id number] 350.1.13.10 [id number] [id number] 2019-08-05 08:45:00 2019-08-05 08:45:00 Outpatient DAVID HALL [facility] [id number] [facility] 2019-08-05 00:00:00 2019-08-05 00:00:00 Orders Only Doctor Unassigned, [place] [facility] [id number] 350.1.13.10 [id number] [id number] 2019-07-16 10:00:00 2019-07-16 13:45:00 Hospital Encounter David Granado [facility] [id number] 350.1.13.10 4.2.7.2.686 [id number] 2019-07-15 11:00:00 2019-07-15 11:00:00 Outpatient R DAVID GRANADO [facility] [id number] [facility] 2019-07-15 10:23:51 2019-07-15 10:30:38 Nurse Visit Nurse, [facility] General Surgery [facility] Shane [facility] 1.2.840.114 350.1.13.10 4.2.7.2.686 [id number] 2019-07-15 00:00:00 2019-07-15 00:00:00 Telephone Loy David Radha [facility] [id number] 350.1.13.10 4.2.7.2.686 [id number] Results Test Description Test Time Test Comments Results Result Co mments Source ECG 12 lead 2023-12-12 18:02:38 AV paced 81bpm, [place] 256, QRS 192, Qtc 559. [facility]
[2024-01-19] MEDS ORDERED: ALBUTEROL 2.5 MG/3 ML NEB SOL ONE (22:43)
[2024-01-19] MEDS ORDERED: IPRATROPIUM BROM 0.5MG/2.5ML ONE (22:43)
[2024-01-19] MEDS ORDERED: FUROSEMIDE 40 MG/4 ML VIAL ONE (22:44)
[2024-01-19 23:01] LABS: Absolute Eosinophils 0.3 K/uL (0-0.5); Absolute Lymphocytes (CBC) 0.7 K/uL (0.7-4.9); Absolute Monocytes 0.3 K/uL (0.1-1.3); Absolute Neutrophil 3.4 K/uL (1.8-8.0); Basophils % 1.1 % (0-1.3); Eosinophils % 5.4 % (0-4.4); Hematocrit 36.4 % (39.6-49.0); Hemoglobin 11.4 g/dL (13.6-17.9); Lymphocytes % 14.2 % (15.3-44.8); MCHC 31.2 g/dL (32.0-36.0); MCV 92.8 fL (80-100); Monocytes % 6.4 % (3.3-12.3); Neutrophils % 72.9 % (41.7-73.7); Nucleated Red Blood Cells % 0.1 % (0-0); Platelets 165 thou/uL (152-406); RBC Red Blood Cell Count 3.92 M/uL (4.33-5.43); Red Cell Distribution Width 21.8 % (12.1-15.2)
[2024-01-19 23:07] LABS: PT Prothrombin Time 13.6 SECONDS (9.4-12.5); Protime INR 1.22
[2024-01-19 23:22] LABS: AST/SGOT 16 U/L (15-37); Albumin 3.1 g/dL (3.4-5.0); Albumin/Globulin Ratio 0.8 (1.1-1.8); Alkaline Phosphatase 82 U/L (45-117); Anion Gap 8.6 mEq/L (5.0-15.0); BUN Blood Urea Nitrogen 22 mg/dL (7-18); Bicarbonate 28 mEq/L (21-32); Bilirubin Direct 0.2 mg/dL (0-0.2); Bilirubin Indirect, Calculated 0.4 mg/dL (0.2-0.8); Bilirubin Total 0.6 mg/dL (0.2-1.0); Globulin 3.9 g/dL (2.3-3.5); Glomerular Filtration Rate 48 ml/min (=/>90); Glucose Level 108 mg/dL (74-106); Magnesium 1.9 mg/dL (1.6-2.4); NT PRO-BNP 553 pg/mL (<125); Potassium 4.6 mEq/L (3.5-5.1); Sodium Level 142 mEq/L (136-145); Troponin High Sensitivity 21.6 pg/mL (<58.9)
[2024-01-19 23:32] LABS: ALT/SGPT < 14 U/L (16-61)
--- NOTE | 2024-01-20 00:22 | RAD REPORT ---
EXAM: XR Chest, 1 View CLINICAL HISTORY: SOB. TECHNIQUE: Frontal view of the chest. COMPARISON: XR Chest 12/04/2023 (report only). FINDINGS: Lungs: Central pulmonary vascular and interstitial prominence and moderate bilateral perihilar opac ities. Pleural space: Blunting of the left costophrenic angle. No pneumothorax. Heart: The cardiac silhouette is moderately enlarged, in part accentuated by portable technique. Mediastinum: Unremarkable. Normal mediastinal contour. Bones/joints: Unremarkable. No acute fracture. Vasculature: Thoracic aortic atherosclerosis. Tubes, lines and devices: Left chest wall dual-lead pacer. Upper abdomen: Surgical clips project over the right and left upper quadrants. IMPRESSION: Findings which may be related to pulmonary congestion including possible small left pleural effusion. Superimposed infection not excluded. Electronically signed by: Doc Gaviria MD 01/19/2024 11:58 PM CDT Due to temporary technical issues with the PACS/[employer] reporting system, reports are being jill d by the in-house radiologist without review as a courtesy to ensure prompt reporting the interpreting radiologist is fully responsible for the content of the report. Transcribed Date/Time: 01/20/2024 12:22 AM
[2024-01-20] MEDS ORDERED: NA CHLORIDE 0.9% 100 ML ONE (01:07)
[2024-01-20] MEDS ORDERED: PIPERACIL/TAZO 3.375 GM VIAL IV ONE (01:07)
[2024-01-20] MEDS ORDERED: HYDRALAZINE HCL 20 MG/ML VIAL ONE (01:07)
--- NOTE | 2024-01-20 01:16 | EDPHYS ---
Physician Documentation [facility] Name: Ángel Haddad Age: 69 yrs Sex: Male : 1955 Arrival Date: 01/19/2024 Time: 21:50 Bed 8 Private MD: ED Physician Chirag Cueto HPI: 01/18 22:45 This 69 yrs old Male presents to ER via Ambulatory with complaints of Wheezing > 1 Year.cp 22:45 The patient has shortness of breath at rest. cp 22:45 Onset: The symptoms/episode began/occurred today, after lying down to take a nap. cp Duration: The symptoms are continuous, and are steadily getting worse. Associated signs and symptoms: Pertinent negatives: chest pain, productive cough, diaphoresis, fever, vomiting. Severity of symptoms: in the emergency department the symptoms have improved mildly. Patient reports having home oxygen but doesn't use continuously. Historical: - Allergies: 22:24 Adhesives; ha1 22:24 apixaban; ha1 22:24 CLOPIDOGREL; ha1 22:24 tramadol; ha1 - Home Meds: 22:24 levothyroxine 100 mcg tablet daily [Active]; tamsulosin 0.4 mg Oral capsule daily ha1 [Active]; ramipril 10 mg Oral capsule daily [Active]; sumatriptan succinate 100 mg Oral tablet [Active]; sotalol 120 mg Oral tablet 2 times per day [Active]; - PMHx: 22:24 Atrial Fib; CVA; kidney failure; Myocardial infarction; Pace maker; ha1 - Immunization history:: Adult Immunizations up to date. - Infectious Disease History:: Denies. - Social history:: Smoking status: Patient denies any tobacco usage or history of. ROS: 22:50 Constitutional: Negative for body aches, chills, fever, poor PO intake, cp 22:50 Eyes: Negative for injury, pain, redness, and discharge, cp 22:50 ENT: Negative for drainage from ear(s), ear pain, sore throat, difficulty swallowing, difficulty handling secretions, 22:50 Cardiovascular: Negative for chest pain, palpitations, 22:50 Respiratory: Positive for shortness of breath, at rest. wheezing, 22:50 Abdomen/GI: Negative for abdominal pain, vomiting, diarrhea, constipation, 22:50 Neuro: Negative for altered mental status, dizziness, headache, syncope, weakness, 22:50 All other systems are negative, Exam: 22:35 ECG was reviewed by the Attending Physician. cp 22:55 Constitutional: The patient appears alert, awake, non-diaphoretic, non-toxic, well cp developed, well nourished, uncomfortable, 22:55 Head/Face: Normocephalic, atraumatic. cp 22:55 Eyes: Periorbital structures: appear normal, Conjunctiva: normal, no exudate, no injection, Sclera: no appreciated abnormality, Lids and lashes: appear normal, bilaterally, 22:55 ENT: External ear(s): are unremarkable, Nose: is normal, Mouth: Lips: moist, Oral mucosa: pink and intact, moist, Posterior pharynx: Airway: no evidence of obstruction, patent, 22:55 Neck: ROM/movement: is normal, is supple, without pain, no range of motions limitations, no meningismus, no nuchal rigidity, 22:55 Chest/axilla: Inspection: normal, Palpation: is normal, no crepitus, no tenderness, 22:55 Cardiovascular: Rate: normal, Rhythm: regular, Edema: ankle edema, that is mild, JVD: is not appreciated, 22:55 Respiratory: the patient does not display signs of respiratory distress, Respirations: labored breathing, that is mild, Breath sounds: bronchial sounds, that are mild, are heard diffusely, decreased breath sounds, that are moderate, throughout, stridor, is not appreciated, 22:55 Abdomen/GI: Inspection: abdomen appears normal, Palpation: abdomen is soft and non-tender, in all quadrants, 22:55 Back: pain, is absent, ROM is normal, 22:55 Skin: no rash present. 22:55 Neuro: Orientation: to person, place \T\ time. Mentation: is normal, Motor: moves all fours, no focal deficits, Sensation: is normal, Vital Signs: 22:01 BP 203 / 98; Pulse 98; Resp 22 S; Temp 97.5(O); Pulse Ox 93% on 3 lpm NC; Weight 95.25 ha1 kg; Height 6 ft. 2 in. ; 23:11 BP 182 / 102; Pulse 82; Resp 20; Pulse Ox 100% on Nebulizer Mask; jj7 01/19 00:28 BP 182 / 92; Pulse 84; Resp 24; Pulse Ox 99% on 2 lpm NC; jj7 01:25 BP 136 / 85; Pulse 96; Resp 22; Pulse Ox 96% on 2 lpm NC; jj7 01:45 BP 149 / 86; Pulse 80; Resp 19; Pulse Ox 96% on 2 lpm NC; jj7 02:40 BP 138 / 82; Pulse 81; Resp 21; Pulse Ox 94% on 2 lpm NC; Pain 0/10; jj7 03:40 BP 112 / 59; Pulse 82; Resp 17; Temp 97.8; Pulse Ox 94% on 2 lpm NC; jj7 01/18 22:01 Body Mass Index 26.96 (95.25 kg, 187.96 cm) ha1 02:40 Pain Scale: Adult jj7 MDM: 01/18 22:17 Medical Screening Exam initiated cp 01/19 01:20 Data reviewed: vital signs, nurses notes, lab test result(s), radiologic studies, CT cp scan, plain films, I have discussed the patient's presentation/case with the attending Emergency Department Physician; and as a result, I will administer antibiotics Zosyn, transfer patient. 01:20 Differential diagnosis: Anemia Bronchitis CHF exacerbation, Chronic Obstructive cp Pulmonary Disease Myocardial Infarction pneumonia, pulmonary edema, Pulmonary Embolism Sepsis Unstable Angina. Antibiotic administration: Zosyn. 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 Plan: O2 by Mask applied. Care significantly affected by the following chronic conditions: Congestive Heart Failure, Chronic Kidney Disease. Counseling: I had a detailed discussion with the patient and/or guardian regarding the historical points, exam findings, and any diagnostic results supporting the discharge/admit diagnosis, lab results, radiology results, the need to transfer to another facility, [facility] does not immediately have the required specialist. Response to treatment: the patient's symptoms have mildly improved after treatment. 01/18 22:40 Order name: Basic Metabolic Panel; Complete Time: 23:55 cp 01/18 22:40 Order name: CBC with Diff; Complete Time: 23:55 cp 01/18 22:40 Order name: LFT's; Complete Time: 23:55 cp 01/18 22:40 Order name: Magnesium; Complete Time: 23:55 cp 01/18 22:40 Order name: NT PRO-BNP; Complete Time: 23:55 cp 01/18 22:40 Order name: PT-INR; Complete Time: 23:55 01/18 22:40 Order name: Troponin HS; Complete Time: 23:55 01/18 23:56 Order name: Lactate w/ 2H reflex if indic.; Complete Time: 00:55 01/19 00:55 Interpretation: Reviewed. 01/18 23:56 Order name: Blood Culture Adult (2) 01/19 00:56 Order name: Urinalysis w/ reflexes 01/19 01:00 Order name: Urinalysis w/ reflexes; Complete Time: 01:52 EDMS 01/18 22:40 Order name: XRAY Chest (1 view) 01/18 23:56 Order name: CT Chest For PE Angio 01/18 22:40 Order name: Cardiac monitoring; Complete Time: 22:41 01/18 22:40 Order name: EKG - Nurse/Tech; Complete Time: 22:50 01/18 22:40 Order name: IV Saline Lock; Complete Time: 22:50 01/18 22:40 Order name: Labs collected and sent; Complete Time: 22:50 01/18 22:40 Order name: O2 Per Protocol; Complete Time: 22:41 01/18 22:40 Order name: O2 Sat Monitoring; Complete Time: 22:41 cp EC/02 22:35 Rate is 82 beats/min. Rhythm is regular, Paced. QRS interval is prolonged at 178 msec. cp QT interval is normal. T waves are Inverted in leads I, aVL, V6. Interpreted by me. Reviewed by me. Administered Medications: 22:53 Drug: DuoNeb Nebulize (2.5 mg - 0.5 mg) 3 ml Nebulizer once Route: Nebulizer; [facility] 23:24 Follow up: Response: Wheezing unchanged jj7 22:54 Drug: Furosemide IVP 40 mg IVP once; give over 2 minutes Route: IVP; Site: right [facility] antecubital; 23:24 Follow up: Response: Marked relief of symptoms j7 01/19 01:33 Drug: Piperacillin-Tazobactam IVPB 3.375 grams IVPB once over 60 mins; (mix in NS 100 jj7 mL) Route: IVPB; Infused Over: 60 mins; Site: right antecubital; 01:43 Follow up: IV Status: Completed infusion; MEDS RAN FOR 1 HR,BUT IT'S DAYLIGHT SAVINGS jj7 AND THE CLOCKED TURNED BACK AN HR 01:44 Drug: hydrALAZINE IVP 10 mg IVP once Route: IVP; Site: right antecubital; jj7 01:44 Follow up: Response: Blood pressure is lowered j7 Disposition Summary: 01/20/24 01:15 Transfer Ordered Notes: Transfer Location: [facility] cp Reason: Higher level of care cp Condition: Stable cp Problem: new cp Symptoms: have improved cp Accepting Physician: Doctor(01/20/24 04:04) jj7 Diagnosis - Acute pulmonary edema cp - Unspecified combined systolic (congestive) and diastolic (congestive) heart failure cp Forms: - Medication Reconciliation Form cp - SBAR form cp Signatures: Dispatcher [employer] EDMS Chirag Jon PA PA cp Ayala, Heidy, RN RN ha1 Hitesh Granado RN RN jj7 Corrections: (The following items were deleted from the chart) 01:25 01:15 Doctor tuyet cp 04:04 01:25 Doctor tuyet jj7
--- NOTE | 2024-01-20 01:16 | ER ---
Nurse's Notes [facility] Name: Ángel Haddad Age: 69 yrs Sex: Male : 1955 Arrival Date: 01/19/2024 Time: 21:50 Bed 8 Private MD: Diagnosis: Acute pulmonary edema;Unspecified combined systolic (congestive) and diastolic (congestive) heart failure Presentation: 01/18 22:01 Chief complaint: Patient states: WHEEZING, SHORTNESS OF BREATH. ha1 22:01 Coronavirus screen: Vaccine status: Patient reports being unvaccinated. Ebola Screen: ha1 No symptoms or risks identified at this time. 22:01 Method Of Arrival: Ambulatory ha1 22:01 Initial Sepsis Screen: Does the patient meet any 2 criteria? No. Patient's initial jj7 sepsis screen is negative. Does the patient have a suspected source of infection? No. Patient's initial sepsis screen is negative. Risk Assessment: Do you want to hurt yourself or someone else? Patient reports no desire to harm self or others. 22:01 Acuity: MARGO 3 jj7 Triage Assessment: 22:24 General: Appears uncomfortable, Behavior is cooperative. Pain: Denies pain. Neuro: ha1 Level of Consciousness is awake, alert, obeys commands, Oriented to person, place, time, situation. Respiratory: Reports shortness of breath at rest on exertion Onset: The symptoms/episode began/occurred gradually, the patient has moderate shortness of breath. Historical: - Allergies: 22:24 Adhesives; ha1 22:24 apixaban; ha1 22:24 CLOPIDOGREL; ha1 22:24 tramadol; ha1 - Home Meds: 22:24 levothyroxine 100 mcg tablet daily [Active]; tamsulosin 0.4 mg Oral capsule daily ha1 [Active]; ramipril 10 mg Oral capsule daily [Active]; sumatriptan succinate 100 mg Oral tablet [Active]; sotalol 120 mg Oral tablet 2 times per day [Active]; - PMHx: 22:24 Atrial Fib; CVA; kidney failure; Myocardial infarction; Pace maker; ha1 - Immunization history:: Adult Immunizations up to date. - Infectious Disease History:: Denies. - Social history:: Smoking status: Patient denies any tobacco usage or history of. Screenin:01 Abuse screen: Denies threats or abuse. Nutritional screening: No deficits noted. jj7 Tuberculosis screening: No symptoms or risk factors identified. 01/19 03:59 [facility] ED Fall Risk Assessment (Adult) History of falling in the last 3 months, jj7 including since admission Yes- fall prone (multiple falls) (3 pts) Confusion or Disorientation No (0 pts) Intoxicated or Sedated No (0 pts) Impaired Gait No (0 pts) Mobility Assist Device Used No (0 pt) Altered Elimination No (0 pt) Score/Fall Risk Level 3 or more points = High Risk Oriented to surroundings, Maintained a safe environment, Educated pt \T\ family on fall prevention, incl call for assistance when getting out of bed, Assessed \T\ reinforced patient's understanding of fall precautions. Assessment: 01/18 22:01 General: Appears in no apparent distress. uncomfortable, Behavior is calm, cooperative, jj7 appropriate for age. Respiratory: Airway is patent Respiratory effort is even, labored, Respiratory pattern is symmetrical, Breath sounds with wheezes bilaterally. 01/19 02:57 Reassessment: REPORT GIVEN TO SANJUANA ROBERSON. jj7 03:59 Reassessment: [facility] AT BEDSIDE TO TRANSFER PT. jj7 Vital Signs: 01/18 22:01 BP 203 / 98; Pulse 98; Resp 22 S; Temp 97.5(O); Pulse Ox 93% on 3 lpm NC; Weight 95.25 ha1 kg; Height 6 ft. 2 in. ; 23:11 BP 182 / 102; Pulse 82; Resp 20; Pulse Ox 100% on Nebulizer Mask; jj7 01/19 00:28 BP 182 / 92; Pulse 84; Resp 24; Pulse Ox 99% on 2 lpm NC; jj7 01:25 BP 136 / 85; Pulse 96; Resp 22; Pulse Ox 96% on 2 lpm NC; jj7 01:45 BP 149 / 86; Pulse 80; Resp 19; Pulse Ox 96% on 2 lpm NC; jj7 02:40 BP 138 / 82; Pulse 81; Resp 21; Pulse Ox 94% on 2 lpm NC; Pain 0/10; jj7 03:40 BP 112 / 59; Pulse 82; Resp 17; Temp 97.8; Pulse Ox 94% on 2 lpm NC; jj7 01/18 22:01 Body Mass Index 26.96 (95.25 kg, 187.96 cm) ha1 02:40 Pain Scale: Adult jj7 ED Course: 01/18 21:52 Patient arrived in ED. im 22:01 Patient has correct armband on for positive identification. Placed in gown. Bed in low jj7 position. Call light in reach. Side rails up X 1. Adult w/ patient. Provided Education on: USE OF CALL GALLARDO. Client placed on continuous cardiac and pulse oximetry monitoring. NIBP monitoring applied. cardiac monitor technician on. Pulse ox on. Warm blanket given. 22:01 Arm band placed on right wrist. Patient placed in an exam room, on a stretcher, on jj7 oxygen, on security monitor, on pulse oximetry. 22:17 Chirag Jon PA is PHCP. cp 22:17 Chirag Cueto MD is Attending Physician. cp 22:28 Hitesh Granado RN is Primary Nurse. jj7 22:32 EKG done, by airborne weapons technical manager. af3 22:39 Inserted saline lock: 20 gauge in right antecubital area, using aseptic technique. af3 Blood collected. Flushed with 10 mL NS. 22:50 Basic Metabolic Panel Sent. af3 22:50 CBC with Diff Sent. af3 22:50 LFT's Sent. af3 22:50 Magnesium Sent. af3 22:50 NT PRO-BNP Sent. af3 22:50 PT-INR Sent. af3 22:50 Troponin HS Sent. af3 23:03 XRAY Chest (1 view) In Process Unspecified. EDMS 01/19 00:14 First set of blood cultures drawn by ri. jj7 00:23 Lactate w/ 2H reflex if indic. Sent. jj7 00:23 Blood Culture Adult (2) Sent. jj7 00:30 Second set of blood cultures drawn. jj7 00:40 CT Chest For PE Angio In Process Unspecified. EDMS 01:22 initiated transfer with Kavon Recinos\ [facility]. [facility] 01:46 Urinalysis w/ reflexes Sent. jj7 03:07 pt was accepted to the [facility], pt will go to room [address] [place] [address]. Number for nurse to [facility] nurse report [phone]. Kavon rich gaves acceptance at [phone]. Dr Cornejo accepted pt \T\ [phone]. [facility] to transfer pt. 03:59 No provider procedures requiring assistance completed. Patient transferred, IV remains jj7 in place. 04:04 Triage completed. jj7 Administered Medications: 01/18 22:53 Drug: DuoNeb Nebulize (2.5 mg - 0.5 mg) 3 ml Nebulizer once Route: Nebulizer; jj7 23:24 Follow up: Response: Wheezing unchanged jj7 22:54 Drug: Furosemide IVP 40 mg IVP once; give over 2 minutes Route: IVP; Site: right [facility] antecubital; 23:24 Follow up: Response: Marked relief of symptoms jj7 01/19 01:33 Drug: Piperacillin-Tazobactam IVPB 3.375 grams IVPB once over 60 mins; (mix in NS 100 jj7 mL) Route: IVPB; Infused Over: 60 mins; Site: right antecubital; 01:43 Follow up: IV Status: Completed infusion; MEDS RAN FOR 1 HR,BUT IT'S DAYLIGHT SAVINGS jj7 AND THE CLOCKED TURNED BACK AN HR 01:44 Drug: hydrALAZINE IVP 10 mg IVP once Route: IVP; Site: right antecubital; jj7 01:44 Follow up: Response: Blood pressure is lowered jj7 Medication: 01/18 22:01 VIS not applicable for this client. jj7 Intake: Outcome: 01/19 01:15 ER care complete, transfer ordered by MD. benz 03:59 Transferred by [facility] [place]. to [facility], Transfer form jj7 completed. X-rays sent w/ patient. 03:59 Condition: good 04:04 Patient left the ED. jj7 Signatures: Dispatcher [employer] EDMS Chirag Jon PA PA cp Ayala, Heidy RN RN ha1 Hitesh Granado RN RN jj7 Mady Campos Kelsey Maroul [facility] Christine Kimble3 Corrections: (The following items were deleted from the chart) 03:50 03:07 pt was accepted to the [facility]
[2024-01-20 02:00] LABS: Sqamous Epithelial None Seen /HPF (None Seen); Urine Bacteria None Seen /HPF (<20); Urine Bilirubin NEGATIVE (Negative); Urine Blood Negative (Negative); Urine Clarity Clear (Clear); Urine Color Colorless (Yellow); Urine Crystals Unidentified Few /HPF (None Seen); Urine Culture Reflex Order NOT NEEDED; Urine Glucose NEGATIVE (Negative); Urine Ketones NEGATIVE (Negative); Urine Microscopic Reflex YN ORDER UMIC; Urine Mucus Slight /HPF (None Seen); Urine Nitrite NEGATIVE (Negative); Urine Protein NEGATIVE (Negative); Urine RBC <5 /HPF (None Seen); Urine Urobilinogen Normal (Normal); Urine WBC <5 /HPF (<5); Urine pH 6.5 (5.0-7.0)
[2024-01-20 04:22] VITALS: O2SAT 94
[2024-01-20 04:24] VITALS: BP 112/59; TEMP 97.8
--- NOTE | 2024-01-20 05:57 | RAD REPORT ---
Clinical Indication: Bed Name: 8; SOB Comparison: None TECHNIQUE: Sequential trans-axial images were obtained through the chest and upper abdomen after admi nistration of iodinated contrast. Coronal and sagittal reconstructions were obtained. Coronal and sagittal MIP images were performed and provided as separate series. IV CONTRAST: Contrast dose was not provided All CT scans at this location are performed using dose optimization techniques as appropriate to perf orm the study. Radiation dose reduction technique was utilized including one or more of the following: Automated exp osure control, adjustment of the mA and/or kV according to patient size and use of iterative reconstruction technique. CT Radiation Dose DLP 575 mGy-cm FINDINGS: LUNG PARENCHYMA AND PLEURA: Diffuse perihilar airspace consolidation is noted. Diffuse surrounding gr oundglass opacities are also noted. There is mild pulmonary vascular congestion. These findings are most consistent with mixed interstitial and alveolar pulmonary edema, likely from CHF exacerbation. S uperimposed pneumonia cannot be completely excluded.. Tiny bilateral pleural effusions are noted slightly greater on the right. There is no pneumothorax. AIRWAY: The central airway is the bronchi are slitlike and small. There is thickening of the bronchia l nelson with surrounding consolidation in the perihilar region.. MEDIASTINUM: No significant mediastinal lymphadenopathy. HEART: There is no evidence of RV strain. The heart is borderline enlarged. Left subclavian dual lead pacemaker wires are noted.. There is trace pericardial effusion. A Watchman device is noted within the left atrial appendage. VASCULAR STRUCTURES: The ascending aorta measures 3.9 cm in diameter with the descending aorta measur ing 2.6 cm in diameter at the level of the main pulmonary artery. The main pulmonary artery measures 3.2 cm in diameter. There are no segmental pulmonary emboli noted. The main, right and le ft pulmonary arteries are normal. The great vessels are unremarkable. The thoracic aorta is unremarkable and without dissection or aneurysm. The superior vena cava is unremarkable. OSSEOUS STRUCTURES: There are no definite acute osseous abnormalities seen. VISUALIZED UPPER ABDOMEN: The visualized upper abdomen is within normal limits. The patient is status post gastric bypass. The patient is also status post cholecystectomy. IMPRESSION: 1. No evidence of pulmonary emboli. 2. Findings most consistent with mixed interstitial and alveolar pulmonary edema due to CHF exacerbat ion/A. fib with RVR. Clinical correlation is recommended. Superimposed pneumonia cannot be completely excluded. 3. Compression of the right and left main bronchi as well as perihilar bronchi from surrounding edema /consolidation. Electronically signed by: Vinny Hyman MD 01/20/2024 01:30 AM CDT RP Due to temporary technical issues with the PACS/[employer] reporting system, reports are being jill d by the in-house radiologist without review as a courtesy to ensure prompt reporting the interpreting radiologist is fully responsible for the content of the report. Transcribed Date/Time: 01/20/2024 5:57 AM
--- NOTE | 2024-01-21 12:15 | EKG ---
Test Date: 2024-01-19 Test Time: 22:29:19 Training Administrator: AF MEASUREMENT RESULTS: Intervals: Rate: 82 RI: QRSD: 178 QT: 462 QTc: 539 Swink: P: 110 RI: QRS: 212 T: 119 INTERPRETIVE STATEMENTS: Ventricular-paced rhythm Abnormal ECG Compared to ECG 12/04/2023 14:56:01 No significant changes Electronically Signed On 01-21-24 12:13:27 WASHCOAT WIPER by Yosvany Blount
== END 2024-01-20 04:04 | disposition short-term general hospital (02) ==
LOC: ER 21:50
DX: J81.0 Acute pulmonary edema (principal); I50.40 Unspecified combined systolic (congestive) and diastolic (congestive) heart failure; I25.2 Old myocardial infarction; I48.91 Unspecified atrial fibrillation; Z95.0 Presence of cardiac pacemaker
CPT/HCPCS: 93005; 87040 ×2; 85025; 81001; 80048; 36415; 83735; 85610; 80076; 83605; 84484; 83880; 71275; 71045; 96375; 96374; 99285; Q9967; J0360; J1940; J2543; J7613; J7644

== ENCOUNTER 2024-01-25 13:43 | Observation (INO) | payer OTHER ==
[2024-01-25 14:50] LABS: Absolute Basophils 0.1 K/uL (0-0.5); Absolute Eosinophils 0.3 K/uL (0-0.5); Absolute Lymphocytes (CBC) 0.6 K/uL (0.7-4.9); Absolute Monocytes 0.6 K/uL (0.1-1.3); Absolute Neutrophil 3.1 K/uL (1.8-8.0); Eosinophils % 6.8 % (0-4.4); Hematocrit 34.6 % (39.6-49.0); Lymphocytes % 13.3 % (15.3-44.8); MCH 29.3 pg (27.0-35.0); MCHC 31.8 g/dL (32.0-36.0); MPV 8.3 fL (7.6-11.3); Monocytes % 12.5 % (3.3-12.3); Neutrophils % 65.4 % (41.7-73.7); Platelets 189 thou/uL (152-406); RBC Red Blood Cell Count 3.76 M/uL (4.33-5.43); Red Cell Distribution Width 20.5 % (12.1-15.2)
[2024-01-25 15:04] LABS: Albumin 3.1 g/dL (3.4-5.0); Albumin/Globulin Ratio 0.8 (1.1-1.8); Anion Gap 10.4 mEq/L (5.0-15.0); Bilirubin Total 0.4 mg/dL (0.2-1.0); Globulin 4.1 g/dL (2.3-3.5); Potassium 4.4 mEq/L (3.5-5.1); Protein, Total 7.2 g/dL (6.4-8.2)
[2024-01-25 15:22] LABS: Anisocytosis 1+; Blood Morphology Comment NOTED (NOT SEEN); Platelet Estimate ADEQ; White Blood Cell Scan OK (OK)
[2024-01-25 16:02] LABS: Specific Gravity 1.017 (1.005-1.030); Urine Bilirubin NEGATIVE (Negative); Urine Blood Negative (Negative); Urine Clarity Clear (Clear); Urine Color Light-Yellow (Yellow); Urine Glucose NEGATIVE (Negative); Urine Ketones NEGATIVE (Negative); Urine Nitrite NEGATIVE (Negative); Urine Protein TRACE (Negative); Urine Urobilinogen Normal (Normal)
[2024-01-25 16:07] LABS: Urine WBC <5 /HPF (<5)
[2024-01-25 16:08] LABS: Sqamous Epithelial <5 /HPF (None Seen); Urine Bacteria <20 /HPF (<20); Urine Culture Reflex Order NOT NEEDED; Urine RBC <5 /HPF (None Seen)
[2024-01-25 16:12] LABS: Urine Micro Reflex YN NO BILL MICROSCOPIC
--- NOTE | 2024-01-25 16:13 | EDPHYS ---
Physician Documentation [facility] Name: Ángel Haddad Age: 69 yrs Sex: Male : 1955 Arrival Date: 01/25/2024 Time: 13:43 Bed 4 Private MD: ED Physician Lucas Worrell HPI: 01/24 16:13 This 69 yrs old Male presents to ER via Wheelchair with complaints of Abnormal Lab rt Results. 16:13 Patient had a recent admission to the hospital for CHF, was given more Lasix. States he rt had outpatient labs that were done that showed worsening of his kidney function. Patient states that he feels poorly but cannot be more specific. Denies other acute complaints at this time, symptoms are moderate in severity, no other aggravating alleviating factors.. Historical: - Allergies: 14:01 apixaban; iw 14:01 Adhesives; iw 14:01 CLOPIDOGREL; iw 14:01 tramadol; iw - Home Meds: 15:03 levothyroxine 100 mcg tablet daily [Active]; ramipril 10 mg Oral capsule daily tl4 [Active]; sotalol 120 mg Oral tablet 2 times per day [Active]; sumatriptan succinate 100 mg Oral tablet [Active]; tamsulosin 0.4 mg Oral capsule daily [Active]; - PMHx: 14:01 Atrial Fib; CVA; kidney failure; Myocardial infarction; Pace maker; iw - Immunization history:: Adult Immunizations unknown. - Infectious Disease History:: Denies. - Family history:: not pertinent. - Social history:: Smoking status: Patient denies any tobacco usage or history of. ROS: 16:13 Cardiovascular: Negative for chest pain, palpitations, and edema, Respiratory: Negative rt for shortness of breath, cough, wheezing, and pleuritic chest pain, Abdomen/GI: Negative for abdominal pain, nausea, vomiting, diarrhea, and constipation, MS/Extremity: Negative for injury and deformity, Skin: Negative for injury, rash, and discoloration, Neuro: Negative for headache, weakness, numbness, tingling, and seizure, 16:13 Constitutional: Positive for malaise, Negative for fever, Exam: 16:13 Constitutional: This is a well developed, well nourished patient who is awake, alert, rt and in no acute distress. Head/Face: Normocephalic, atraumatic. Chest/axilla: Normal chest wall appearance and motion. Nontender with no deformity. No lesions are appreciated. Cardiovascular: Regular rate and rhythm with a normal S1 and S2. No gallops, murmurs, or rubs. Normal PMI, no JVD. No pulse deficits. Respiratory: Lungs have equal breath sounds bilaterally, clear to auscultation and percussion. No rales, rhonchi or wheezes noted. No increased work of breathing, no retractions or nasal flaring. Abdomen/GI: Soft, non-tender, with normal bowel sounds. No distension or tympany. No guarding or rebound. No evidence of tenderness throughout. Skin: Warm, dry with normal turgor. Normal color with no rashes, no lesions, and no evidence of cellulitis. MS/ Extremity: Pulses equal, no cyanosis. Neurovascular intact. Full, normal range of motion. Neuro: Awake and alert, GCS 15, oriented to person, place, time, and situation. Cranial nerves II-XII grossly intact. Motor strength 5/5 in all extremities. Sensory grossly intact. Cerebellar exam normal. Normal gait. Vital Signs: 14:00 BP 129 / 70; Pulse 80; Resp 16; Temp 97.6; Pulse Ox 99% ; Weight 91.63 kg; Height 6 ft. iw 2 in. ; 15:01 BP 134 / 80; Pulse 80; Resp 18; Pulse Ox 97% on R/A; tl4 15:30 BP 140 / 81; Pulse 79; Resp 18; Pulse Ox 98% on R/A; tl4 16:00 BP 151 / 83; Pulse 80; Resp 18; Pulse Ox 98% on R/A; tl4 17:00 BP 139 / 83; Pulse 81; Resp 16; Pulse Ox 98% on R/A; tl4 18:00 BP 154 / 85; Pulse 79; Resp 18; Temp 98.1(O); Pulse Ox 97% ; tl4 19:10 BP 118 / 65; Pulse 82; Resp 17 S; Pulse Ox 96% on R/A; ha1 20:33 BP 109 / 62; Pulse 80; Resp 18; Temp 98.1; Pulse Ox 100% ; Pain 0/10; bm8 21:24 BP 127 / 75; Pulse 78; Resp 17 S; Pulse Ox 99% on R/A; ha1 14:00 Body Mass Index 25.93 (91.63 kg, 187.96 cm) iw 20:33 Pain Scale: Adult bm8 MDM: 14:06 Medical Screening Exam initiated rt 16:14 Differential Diagnosis MORRIS, intravascular volume depletion, urinary retention. Data rt reviewed: vital signs, nurses notes, lab test result(s). Consideration of Admission/Observation Patient was admitted/placed on observation. Management of patient was discussed with the following: Hospitalist: Agrees to admit. Care significantly affected by the following chronic conditions: Congestive Heart Failure. Counseling: I had a detailed discussion with the patient and/or guardian regarding the historical points, exam findings, and any diagnostic results supporting the discharge/admit diagnosis, lab results, the need for further work-up and treatment in the hospital. Response to treatment: There is no appreciated change of the patient's symptoms at this time. 01/24 14:06 Order name: CBC with Diff; Complete Time: 15:48 rt 01/24 14:06 Order name: CMP; Complete Time: 15:48 rt 01/24 14:06 Order name: UAM; Complete Time: 16:12 rt 01/24 15:23 Order name: CBC Smear Scan; Complete Time: 15:48 EDMS 01/24 17:08 Order name: Basic Metabolic Panel EDMS 01/24 17:08 Order name: Basic Metabolic Panel EDMS 01/24 17:08 Order name: Basic Metabolic Panel EDMS 01/24 14:06 Order name: Bladder Scanner; Complete Time: 14:28 rt Administered Medications: 16:35 Drug: NS 0.9% IV 500 ml IV at bolus once; to be given as a bolus over 30 minutes Route: tl4 IV; Rate: bolus; Site: left forearm; Delivery: Primary tubing; 17:23 Follow up: Response: No adverse reaction; IV Status: Completed infusion; IV Intake: tm6 500ml 17:25 Follow up: Response: No adverse reaction; IV Status: Completed infusion; IV Intake: tl4 500ml Disposition Summary: 01/25/24 16:13 Hospitalization Ordered Notes: Hospitalization Status: Observation rt Provider: Mihaela Padilla [facility] rt Condition: Stable rt Problem: new rt Symptoms: are unchanged rt Bed/Room Type: Standard rt Room Assignment: 411(01/25/24 20:07) rv1 Diagnosis - Acute kidney injury rt Forms: - Medication Reconciliation Form rt - SBAR form rt - Leadership Thank You Letter rt Signatures: Dispatcher [employer] EDMS Nusrat Rich Irene, RN RN iw Lucas Worrell MD MD rt Rodney, Latanya rv1 Nando Hawk RN RN tl4 Chava Duong RN tm6 Corrections: (The following items were deleted from the chart) 14:07 14:07 CBC+H.LAB.BRZ ordered. EDMS EDMS 14:07 14:07 COMPREHENSIVE METABOLIC PANEL+C.LAB.BRZ ordered. EDMS EDMS 14:07 14:07 Urinalysis W/Microscopic+U.LAB.BRZ ordered. EDMS EDMS 17:17 16:13 rt sp 17:50 17:17 211 sp sp 18:17 17:50 sp sp 19:03 18:17 207 sp rv1 20:07 19:03 rv1 rv1
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
[2024-01-25] MEDS ORDERED: NA CHLORIDE 0.9% 500 ML ONE (16:20)
[2024-01-25] MEDS ORDERED: ALBUTEROL 2.5 MG/3 ML NEB SOL NEB PRN (16:58)
[2024-01-25] MEDS ORDERED: ZOLPIDEM TARTRATE 5 MG TABLET PO PRN (16:58)
[2024-01-25] MEDS ORDERED: ACETAMINOPHEN 325 MG TABLET PO PRN (16:58)
[2024-01-25] MEDS ORDERED: ONDANSETRON 4 MG/2 ML VIAL IV PRN (16:58)
[2024-01-25] MEDS ORDERED: ACETAMINOPHEN 500 MG TAB PO PRN (16:58)
[2024-01-25] MEDS ORDERED: PROMETHAZINE 25 MG TABLET PO PRN (16:58)
[2024-01-25] MEDS: D5 0.9 NS 1,000 ML IV SCH (17:00)
--- NOTE | 2024-01-25 17:17 | P.HP ---
Certification for Inpatient Patient admitted to: Observation With expected LOS: <2 Midnights Patient will require the following post-hospital care: None Practitioner: I am a practitioner with admitting privileges, knowledge of patient current condition, hospital course, and medical plan of care. Services: Services provided to patient in accordance with Admission requirements found in Title 42 Section 412.3 of the Code of Federal Regulations Patient History Date of Service: 01/25/24 Reason for admission: Worsening CKD History of Present Illness: This is 69 years old gentleman with a multiple comorbidity including atrial fibrillation, CVA, heart failure with a preserved ejection fraction, CKD stage III MT status post pacemaker, BPH, hypothyroidism who was sent to emergency room by his PCP for elevated serum creatinine compared to his baseline. Patient recently admitted to [facility] in the [place] for acute exacerbation of heart failure received IV furosemide and discharged recently. He denied any dysuria, gross hematuria or flank pain, no new medication including [id number] NSAID, He did not urinate today he urinated after normal saline bolus which was given at emergency room. His vital sign was stable upon arrival in the emergency room blood pressure 129/70, heart rate 80, respirate 16, afebrile, SpO2 99% on room air. His BUN/creatinine is 55/3.01, her creatinine 1 week ago was 1.55, his serum creatinine has been 1-2 over the past year, which consistent with stage IIIb CKD. Normal electrolyte sodium 138, potassium 4.4, bicarb 30, serum glucose 110. UA shows no sign of infection, he received 500ml of normal saline bolus x 1 at emergency room. Internal medicine was called to evaluate him for admission. Allergies apixaban [From Eliquis] Allergy (Severe, Verified 02/21/23 08:19) Itching/Hives/Rash tramadol Allergy (Severe, Verified 02/21/23 08:19) Nausea/Vomiting clopidogrel [From Plavix] Allergy (Intermediate, Verified 02/21/23 08:19) Itching/Hives/Rash dabigatran etexilate [From Pradaxa] Allergy (Verified 02/21/23 08:19) Hives/Rash rivaroxaban [From Xarelto] Allergy (Verified 02/21/23 08:19) Hives/Rash Adhesives Allergy (Severe, Uncoded 02/21/23 08:19) Rash/Whelps Home Medications: Meclizine HCl 12.5 mg PO DAILY MDD 25 06/05/20 Allopurinol 300 mg PO DAILY 06/06/21 Escitalopram Oxalate 20 mg PO DAILY 06/06/21 Tamsulosin [Flomax*] 0.4 mg PO BID 06/06/21 Baclofen 10 mg PO DAILY PRN 01/25/23 Gabapentin 300 mg PO TID 01/25/23 Pantoprazole [Protonix Tab*] 40 mg PO BEDTIME 01/25/23 Albuterol Sulfate [Albuterol Sulfate Hfa] 2 puff IH Q4H PRN #1 inhaler 11/22/23 Furosemide [Lasix*] 20 mg PO DAILY #30 tab 11/22/23 Sotalol HCl [Betapace*] 80 mg PO BID 6AM 6PM #60 tab 11/22/23 Ergocalciferol (Vitamin D2) [Vitamin D 50,000 Unit Cap] 1 cap PO EVERY 7TH DAY 12/05/23 Levothyroxine [Synthroid*] 88 mcg PO BEDTIME 12/05/23 Levothyroxine [Synthroid*] 100 mcg PO DAILY 12/05/23 - Past Medical/Surgical History Has patient received pneumonia vaccine in the past: Yes Diabetic: No -: 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 arm -: apendectomy -: pacemaker Psychosocial/ Personal History: Patient is retired, lives at home with his - Family History Father -: Heart disease, Kidney disease Notes: sacoidosis Mother -: Heart disease Notes: dementia, alzheimers Brother -: Heart disease, Stroke - Social History Alcohol use: No CD- Drugs: No Caffeine use: Yes Review of Systems Other: Consitutional; fever(-), chills (-), rigor(-), night sweat(-), unintentional weight loss(-) HEENT; epistaxis (-), otorrhea (-), otalgia (-) Respiratory; shortness of breath (-), wheezing (-), cough (-), sputum (-), pleuritic chest pain (-) Cardiovascular; chest pain (-), peripheral edema (-), paroxysmal nocturnal dyspnea (-), orthopnea (-) Gastrointestinal; nausea (-), vomiting (-), abdominal pain (-), diarrhea (-), constipation (-), melena (-), hematochezia (-) Urinary; urinary frequency (-), dysuria (-), urgency (-), flank pain (-), gross hematuria (-) Skin; rash (-), pruritus (-) FREIGHT AND PASSENGER AGENT; headache (-), dizziness (-) Physical Examination - Physical Exam Other Physical/Emotional Findings: - Physical Exam. General: Emaciated, fragile, not acutely ill looking, in no apparent distress,. HEENT: Normo cephalic, atraumatic,. Neck: Supple, without JVD or goiter or thyroid mass. Respiratory: Normal breathing effort, clear to auscultation bilaterally with dry crackles at the lung bases, no wheezing or rhonchi. Cardiovascular: Regular rate and rhythm, S1, S2 normal, no murmur no gallop. Gastrointestinal: Normal bowel sounds, nondistended, nontender, No ascites, , No masses, no hepatosplenomegaly. Musculoskeletal: No clubbing, No peripheral edema, atrophic limb. Integumentary: No rashes. Lymphatics: No axilla or cervical lymphadenopathy. Neurology; alert awake oriented x3, no focal neurologic deficit - Studies Laboratory Data (last 24 hrs) 01/25/24 01/25/24 14:37 14:37 WBC 4.70 Hgb 11.0 L Hct 34.6 L Plt Count 189 Sodium 138 Potassium 4.4 BUN 55 H Creatinine 3.05 H Glucose 111 H Total Bilirubin 0.4 AST 19 ALT 19 Alkaline Phosphatase 79 Assessment and Plan - Plan This is 69 years old gentleman with a past medical history notable for diastolic heart failure, A-fib, CVA, CKD, MT who was sent by his PCP for worsening CKD when he was seen by him after recent hospitalization for acute exacerbation of heart failure. The patient received IV furosemide for pulmonary edema. #1 MORRIS on CKD secondary to dehydration due to aggressive diuresis Mild mild increased serum creatinine to 3, his baseline is 1.5-2, likely CKD stage IIIb, no electrolyte imbalance, good urine output by 500 normal saline bolus, urinalysis. This is acceptable and expected after aggressive diuresis. Continue gentle hydration with normal saline at 50 mL/h, repeat serum creatinine tomorrow, check urine output, hold any diuretics or ARB or KAYLI i nhibitor #2 history of atrial fibrillation, heart failure with preserved ejection fraction Heart rate in target on current medication, will resume sotalol at home dose DVT prophylaxis enoxaparin subcu - Advance Directives Does patient have a Living Will: No Does patient have a Durable POA for Healthcare: No
[2024-01-25] MEDS ORDERED: D5 0.9 NS 1,000 ML IV ONE (17:38)
[2024-01-25] MEDS: SOTALOL HCL 80 MG TAB PO SCH (17:41)
[2024-01-25 18:49] VITALS: BMI 25.9
[2024-01-25] MEDS: GABAPENTIN 300 MG CAP PO SCH (22:47)
[2024-01-26 06:44] LABS: Anion Gap 7.1 mEq/L (5.0-15.0); Potassium 5.1 mEq/L (3.5-5.1)
[2024-01-26] MEDS: BACLOFEN 10 MG TAB PO SCH (08:10)
[2024-01-26] MEDS: allopurinoL 100 MG TAB PO SCH (08:10)
[2024-01-26] MEDS: TAMSULOSIN 0.4 MG SR CAP PO SCH (08:10)
[2024-01-26] MEDS: ENOXAPARIN 30 MG/0.3 ML SQ SCH (08:10)
[2024-01-26] MEDS: ESCITALOPRAM 20 MG TAB PO SCH (08:10)
[2024-01-26 08:20] VITALS: O2SAT 94
--- NOTE | 2024-01-26 12:00 | P.DS ---
Admission Date: 01/25/24 Discharge Date: 01/26/24 Disposition: ROUTINE DISCHARGE Discharge Condition: GOOD Reason for Admission: Worsening CKD Brief History of Present Illness: This is 69 years old gentleman with a multiple comorbidity including atrial fibrillation, CVA, heart failure with a preserved ejection fraction, CKD stage III SD status post pacemaker, BPH, hypothyroidism who was sent to emergency room by his PCP for elevated serum creatinine compared to his baseline. Patient recently admitted to [facility] in the [place] for acute exacerbation of heart failure received IV furosemide and discharged recently. He denied any dysuria, gross hematuria or flank pain, no new medication including [id number] NSAID, He did not urinate today he urinated after normal saline bolus which was given at emergency room. He was admitted under observation for IV hydration and monitor renal function test. Hospital Course: He responded very well to IV hydration and started to urinate without any problem and his kidney function returned to his baseline the next day. The patient was discharged home. #1 MORRIS on CKD secondary to dehydration due to aggressive diuresis His creatinine down to 2.1 from 3.1, no electrolyte imbalance, no UTI by UA #2 compensated heart failure with preserved ejection fraction He is instructed to resume his oral furosemide and ramipril as previous dose after discharge Vital Signs/Physical Exam: Temp Pulse Resp BP Pulse Ox 97.7 F 82 16 113/68 95 01/26/24 08:00 01/26/24 08:00 01/26/24 08:00 01/26/24 08:00 01/26/24 08:00 Other Physical/Emotional Findings: - Physical Exam. General: Emaciated, fragile, not acutely ill looking, in no apparent distress,. HEENT: Norm ocephalic, atraumatic,. Neck: Supple, without JVD or goiter or thyroid mass. Respiratory: Normal breathing effort, clear to auscultation bilaterally with dry crackles at the lung bases, no wheezing or rhonchi. Cardiovascular: Regular rate and rhythm, S1, S2 normal, no murmur no gallop. Gastrointestinal: Normal bowel sounds, nondistended, nontender, No ascites, , No masses, no hepatosplenomegaly. Musculoskeletal: No clubbing, No peripheral edema, atrophic limb. Integumentary: No rashes. Lymphatics: No axilla or cervical lymphadenopathy. Neurology; alert awake oriented x3, no focal neurologic deficit Laboratory Data at Discharge: WBC 4.70 thou/uL (4.3-10.9) 01/25/24 14:37 Hgb 11.0 g/dL (13.6-17.9) L 01/25/24 14:37 Hct 34.6 % (39.6-49.0) L 01/25/24 14:37 Plt Count 189 thou/uL (152-406) 01/25/24 14:37 Sodium 139 mEq/L (136-145) 01/26/24 04:40 Potassium 5.1 mEq/L (3.5-5.1) D 01/26/24 04:40 BUN 45 mg/dL (7-18) H 01/26/24 04:40 Creatinine 2.13 mg/dL (0.70-1.30) H 01/26/24 04:40 Glucose 115 mg/dL (74-106) H 01/26/24 04:40 Total Bilirubin 0.4 mg/dL (0.2-1.0) 01/25/24 14:37 AST 19 U/L (15-37) 01/25/24 14:37 ALT 19 U/L (16-61) 01/25/24 14:37 Alkaline Phosphatase 79 U/L (45-117) 01/25/24 14:37 Home Medications: Allopurinol 300 mg PO DAILY 01/26/24 Baclofen 10 mg PO DAILY PRN 01/26/24 Baclofen [Lioresal*] 10 mg PO DAILY tab 01/26/24 Escitalopram [Lexapro*] 20 mg PO DAILY 01/26/24 Escitalopram [Lexapro*] 20 mg PO DAILY tab 01/26/24 Furosemide [Lasix*] 40 mg PO BID 01/26/24 Gabapentin 300 mg PO TID 01/26/24 Levothyroxine [Synthroid*] 100 mcg PO DAILY 01/26/24 Meclizine HCl 12.5 mg PO DAILY PRN 01/26/24 Pantoprazole [Protonix Tab*] 40 mg PO DAILY 01/26/24 Ramipril [Altace] 5 mg PO DAILY 01/26/24 Sotalol HCl [Sotalol] 80 mg PO BID 01/26/24 Tamsulosin [Flomax*] 0.4 mg PO BID 01/26/24 Followup: Paula Elias, WINCH OPERATOR [Primary Care Provider] -
[2024-01-26 12:42] VITALS: BP 114/70; TEMP 97.6
== END 2024-01-26 12:40 | disposition home or self-care (01) ==
LOC: ER 13:43 → ERHOLD 16:58 → 4TH 21:02
PROVIDERS: ADMIT Internal Medicine; ATTEND Internal Medicine
DX: N17.9 Acute kidney failure, unspecified (principal); N18.32 Chronic kidney disease, stage 3b; I50.9 Heart failure, unspecified; I48.11 Longstanding persistent atrial fibrillation; I25.2 Old myocardial infarction; N40.0 Benign prostatic hyperplasia without lower urinary tract symptoms; E03.9 Hypothyroidism, unspecified; Z86.73 Personal history of transient ischemic attack (TIA), and cerebral infarction without residual deficits; Z95.0 Presence of cardiac pacemaker; Z88.8 Allergy status to other drugs, medicaments and biological substances
CPT/HCPCS: 85025; 81001; 80048; 36415; 80053; 96360; 99285; J1650; J7042 ×2; J7040; G0378 ×4

== ENCOUNTER 2024-04-29 17:41 | Emergency (ER) | payer OTHER ==
--- NOTE | 2024-04-29 18:30 | RAD REPORT ---
EXAMINATION: TWO VIEW CHEST XR CLINICAL INDICATION: Male, 69 years old. [facility] MAIN Cough;Dyspnea Bed: TECHNIQUE: 2 view radiographs of the chest were performed. COMPARISON: 01/19/2024 FINDINGS: Partial improvement of central interstitial prominence and fluffy opacities. Confluent left basilar o pacities with suggestion of small left effusion remain. No pneumothorax or sizable right effusion. The heart is normal in size. Mediastinal contours are unremarkable. IMPRESSION: Partial improvement of changes of pulmonary edema as above.
[2024-04-29 18:43] LABS: Absolute Basophils 0.1 K/uL (0-0.5); Absolute Eosinophils 0.1 K/uL (0-0.5); Absolute Lymphocytes (CBC) 0.4 K/uL (0.7-4.9); Absolute Monocytes 0.2 K/uL (0.1-1.3); Absolute Neutrophil 4.5 K/uL (1.8-8.0); Eosinophils % 1.3 % (0-4.4); Hematocrit 31.1 % (39.6-49.0); Hemoglobin 9.9 g/dL (13.6-17.9); MCH 29.4 pg (27.0-35.0); Neutrophils % 85.7 % (41.7-73.7); Nucleated Red Blood Cells % 0.2 % (0-0); Platelets 159 thou/uL (152-406); RBC Red Blood Cell Count 3.38 M/uL (4.33-5.43); Red Cell Distribution Width 19.3 % (12.1-15.2)
[2024-04-29 19:01] LABS: Anion Gap 7.4 mEq/L (5.0-15.0); Potassium 4.4 mEq/L (3.5-5.1)
[2024-04-29 19:16] LABS: SARS-CoV-2 Antigen CONTROL BLUE LINE VIS/BG OK
[2024-04-29 19:17] LABS: SARS-CoV-2 Antigen Rapid Res Negative (Negative)
[2024-04-29] MEDS ORDERED: FUROSEMIDE 20 MG/ 2ML VIAL ONE (19:27)
--- NOTE | 2024-04-29 20:00 | ER ---
Nurse's Notes [facility] Name: Ángel Haddad Age: 69 yrs Sex: Male : 1955 Arrival Date: 04/29/2024 Time: 17:41 Bed 17 Private MD: Diagnosis: Acute pulmonary edema;Unspecified combined systolic (congestive) and diastolic (congestive) heart failure Presentation: 04/29 17:53 Chief complaint: Patient states: on antibiotic (augmentin) for ear infection but has me1 been SOB and coughing today and has had some fever for the past 2 days. Coronavirus screen: Vaccine status: Patient reports receiving the 2nd dose of the covid vaccine. Ebola Screen: No symptoms or risks identified at this time. Initial Sepsis Screen: Does the patient meet any 2 criteria? No. Patient's initial sepsis screen is negative. Does the patient have a suspected source of infection? No. Patient's initial sepsis screen is negative. Risk Assessment: Do you want to hurt yourself or someone else? Patient reports no desire to harm self or others. Onset of symptoms was April 27, 2024. 17:53 Method Of Arrival: [place] [facility] [place] Acuity: MARGO 3 me1 19:23 Anaphylaxis evaluation, the patient reports or I have noted the following symptoms aa10 which indicate a significant risk of anaphylaxis: shortness of breath. Triage Assessment: 19:22 General: Appears in no apparent distress. Respiratory: Respiratory: Onset: The aa10 symptoms/episode began/occurred gradually. Historical: - Allergies: 17:56 Adhesives; me1 17:56 apixaban; me1 17:56 CLOPIDOGREL; me1 17:56 tramadol; me1 - Home Meds: 19:22 levothyroxine 100 mcg tablet daily [Active]; ramipril 10 mg Oral capsule daily aa10 [Active]; sotalol 120 mg Oral tablet 2 times per day [Active]; sumatriptan succinate 100 mg Oral tablet [Active]; tamsulosin 0.4 mg Oral capsule daily [Active]; - PMHx: 17:56 Atrial Fib; CVA; kidney failure; Myocardial infarction; Pace maker; me1 - PSHx: 17:56 Appendectomy; Cholecystectomy; Coronary Angioplasty; pacemaker; me1 - Immunization history:: Adult Immunizations up to date. - Infectious Disease History:: Denies. - Social history:: Smoking status: Patient denies any tobacco usage or history of. - Family history:: not pertinent. - Hospitalizations: : No recent hospitalization is reported. Screenin:52 [facility] ED Fall Risk Assessment (Adult) History of falling in the last 3 months, cm10 including since admission No falls in past 3 months (0 pts) Confusion or Disorientation No (0 pts) Intoxicated or Sedated No (0 pts) Impaired Gait No (0 pts) Mobility Assist Device Used No (0 pt) Altered Elimination No (0 pt) Score/Fall Risk Level 0 - 2 = Low Risk Oriented to surroundings, Maintained a safe environment, Hourly rounding (assess needs \T\ fall precautionary measures) done. Abuse screen: Denies threats or abuse. Denies injuries from another. Nutritional screening: No deficits noted. Tuberculosis screening: No symptoms or risk factors identified. Assessment: 18:50 General: Appears in no apparent distress. comfortable, Behavior is calm, cooperative. cm10 Pain: Denies pain. Neuro: No deficits noted. Level of Consciousness is awake, alert, obeys commands, Oriented to person, place, time, situation, Appropriate for age. Cardiovascular: Patient's skin is warm and dry. Rhythm is ventricular pacer. Respiratory: No deficits noted. Reports shortness of breath Airway is patent Respiratory effort is even, unlabored, Respiratory pattern is regular, symmetrical, Breath sounds are clear in right upper lobe and left upper lobe Breath sounds are diminished in left lower lobe and right lower lobe. 19:20 Reassessment: Patient appears in no apparent distress at this time. No changes from aa10 previously documented assessment. Patient and/or family updated on plan of care and expected duration. Pain level reassessed. Patient is alert, oriented x 3, equal unlabored respirations, skin warm/dry/pink. Patient denies pain at this time. Patient states symptoms have improved. General: Appears in no apparent distress. comfortable, Behavior is calm, cooperative, appropriate for age. Pain: Denies pain. Neuro: No deficits noted. Level of Consciousness is awake, alert, obeys commands, Oriented to person, place, time, situation, Appropriate for age [employer] are equal bilaterally Moves all extremities. Cardiovascular: No deficits noted. Capillary refill < 3 seconds. Respiratory: Airway is patent. 20:00 Reassessment: Patient appears in no apparent distress at this time. No changes from aa10 previously documented assessment. Patient and/or family updated on plan of care and expected duration. Pain level reassessed. Patient is alert, oriented x 3, equal unlabored respirations, skin warm/dry/pink. Vital Signs: 17:53 BP 158 / 92; Pulse 82; Resp 20; Temp 97.6(O); Pulse Ox 90% on R/A; Weight 90.72 kg; me1 Height 6 ft. 2 in. ; Pain 0/10; 18:30 BP 152 / 89; Pulse 80; Resp 19; Pulse Ox 100% on 3 lpm NC; cm10 19:21 BP 151 / 84; Pulse 81; Resp 21; Temp 98.2(O); Pulse Ox 100% on 2 lpm NC; aa10 20:00 BP 146 / 91; Pulse 81; Resp 16; Temp 98; Pulse Ox 100% on R/A; aa10 17:53 Body Mass Index 25.68 (90.72 kg, 187.96 cm) ak1 17:53 Pain Scale: Adult ak1 17:53 Wears o2 at 5 lpm via nc at home ak1 ED Course: 17:44 Patient arrived in ED. mr 17:45 Porter Johnson MD is Attending Physician. rn 17:55 Triage completed. ak1 17:56 Arm band placed on Patient placed. ak1 18:08 XRAY Chest Pa And Lat (2 Views) In Process Unspecified. EDMS 18:09 Kelly Klein, KAROL is Primary Nurse. cm10 18:35 Flu Sent. cm10 18:35 SARS-COV-2 Antigen Rapid Sent. cm10 18:35 Basic Metabolic Panel Sent. cm10 18:35 CBC with Diff Sent. cm10 18:35 Initial lab(s) drawn, by ak, sent to lab. COVID swab sent to lab. Flu and/or RSV swab cm10 sent to lab. Inserted saline lock: 20 gauge in right forearm, using aseptic technique. Blood collected. Flushed with 10 mL NS. 18:53 Patient has correct armband on for positive identification. Bed in low position. Call cm10 light in reach. Side rails up X2. Provided Education on: ER process and procedures. Client placed on continuous cardiac and pulse oximetry monitoring. NIBP monitoring applied. cattle dehorner on. Warm blanket given. 20:01 No provider procedures requiring assistance completed. IV discontinued. aa10 Administered Medications: 19:28 Drug: Furosemide IVP 60 mg IVP once; give over 2 minutes Route: IVP; Site: left [place] [facility] [employer] [facility] antecubital; 20:02 Follow up: Response: No adverse reaction; Marked relief of symptoms aa10 Medication: 18:52 VIS not applicable for this client. cm10 Outcome: 19:59 Discharge ordered by MD. corbett 20:01 Discharged to home ambulatory, aa10 20:01 Condition: good 20:01 Discharge instructions given to patient, Instructed on discharge instructions, 20:23 Patient left the ED. aa10 Signatures: Dispatcher [employer] EDMS Chantal Quarles, Reg Reg mr Porter Johnson MD MD rn Martinez, Clarissa, RN RN 10 Mady Bonilla RN RN ak1 Priya Perez RN RN 10
--- NOTE | 2024-04-29 20:00 | EDPHYS ---
Physician Documentation [facility] Name: Ángel Haddad Age: 69 yrs Sex: Male : 1955 Arrival Date: 04/29/2024 Time: 17:41 Bed 17 Private MD: ED Physician Porter Johnson HPI: 04/29 18:08 This 69 yrs old Male presents to ER via Ambulatory with complaints of Shortness Of rn Breath. 18:09 The patient has shortness of breath at rest, with light activity. Onset: The rn symptoms/episode began/occurred 2 day(s) ago. Duration: The symptoms are intermittent. The patient's shortness of breath is aggravated by exertion, light activity. Severity of symptoms: At their worst the symptoms were mild in the emergency department the symptoms are unchanged. The patient has experienced similar episodes in the past. Patient reports shortness of breath for the last 2 days. Recently put on Augmentin for sinus and ear infection and was told he had a perforated eardrum on the left side. Today started with shortness of breath with exertion. Reports dry cough. No hemoptysis. Patient reports similar to previous times when he had fluid in his lungs. Has history of congestive heart failure. Denies smoking or COPD. Patient states is out of town and he did not know what to do so came in for evaluation.. Historical: - Allergies: 17:56 Adhesives; me1 17:56 apixaban; me1 17:56 CLOPIDOGREL; me1 17:56 tramadol; me1 - Home Meds: 19:22 levothyroxine 100 mcg tablet daily [Active]; ramipril 10 mg Oral capsule daily aa10 [Active]; sotalol 120 mg Oral tablet 2 times per day [Active]; sumatriptan succinate 100 mg Oral tablet [Active]; tamsulosin 0.4 mg Oral capsule daily [Active]; - PMHx: 17:56 Atrial Fib; CVA; kidney failure; Myocardial infarction; Pace maker; me1 - PSHx: 17:56 Appendectomy; Cholecystectomy; Coronary Angioplasty; pacemaker; me1 - Immunization history:: Adult Immunizations up to date. - Infectious Disease History:: Denies. - Social history:: Smoking status: Patient denies any tobacco usage or history of. - Family history:: not pertinent. - Hospitalizations: : No recent hospitalization is reported. ROS: 18:09 Constitutional: Negative for fever, chills, and weight loss, Cardiovascular: Negative rn for chest pain, palpitations, and edema, Respiratory: Positive for shortness of breath and cough Abdomen/GI: Negative for abdominal pain, nausea, vomiting, diarrhea, and constipation, MS/Extremity: Negative for injury and deformity, Skin: Negative for injury, rash, and discoloration, Neuro: Negative for headache, weakness, numbness, tingling, and seizure, Exam: 18:09 Constitutional: This is a well developed, well nourished patient who is awake, alert, rn and in no acute distress. Ambulatory to room without difficulty Head/Face: Normocephalic, atraumatic. Cardiovascular: Regular rate and rhythm with a normal S1 and S2. No gallops, murmurs, or rubs. Normal PMI, no JVD. No pulse deficits. Respiratory: Mild tachypnea, diminished at bases, no retractions Abdomen/GI: Soft, non-tender Neuro: Awake and alert, GCS 15 19:17 ECG was reviewed by the Attending Physician. rn Vital Signs: 17:53 BP 158 / 92; Pulse 82; Resp 20; Temp 97.6(O); Pulse Ox 90% on R/A; Weight 90.72 kg; me1 Height 6 ft. 2 in. ; Pain 0/10; 18:30 BP 152 / 89; Pulse 80; Resp 19; Pulse Ox 100% on 3 lpm NC; cm10 19:21 BP 151 / 84; Pulse 81; Resp 21; Temp 98.2(O); Pulse Ox 100% on 2 lpm NC; aa10 20:00 BP 146 / 91; Pulse 81; Resp 16; Temp 98; Pulse Ox 100% on R/A; aa10 17:53 Body Mass Index 25.68 (90.72 kg, 187.96 cm) me1 17:53 Pain Scale: Adult me1 17:53 Wears o2 at 5 lpm via nc at home me1 MDM: 17:45 Medical Screening Exam initiated rn 19:58 Differential diagnosis: pneumonia, Pneumothorax pulmonary edema. Data reviewed: vital rn signs, nurses notes, lab test result(s), radiologic studies, and as a result, I will discharge patient. Counseling: I had a detailed discussion with the patient and/or guardian regarding the historical points, exam findings, and any diagnostic results supporting the discharge/admit diagnosis, lab results, radiology results, the need for outpatient follow up, to return to the emergency department if symptoms worsen or persist or if there are any questions or concerns that arise at home. Response to treatment: the patient's symptoms have mildly improved after treatment, and as a result, I will discharge patient. ED course: Chest x-ray shows mild pulmonary edema, improved compared to previous x-rays. No increased oxygen requirement. Patient reports on 3 to 5 L of oxygen at home normally. Will discharge home after IV Lasix, has p.o. Lasix at home, return precautions given and understood. Already on antibiotics for sinus infection.. 20:01 ED course: Patient instructed to double his Lasix over the next 3 days and given strict rn return precautions.. 02 17:54 Order name: CBC with Diff rn 04/29 17:54 Order name: Basic Metabolic Panel; Complete Time: 19:18 rn 04/29 17:54 Order name: Flu; Complete Time: 19:18 rn 04/29 17:54 Order name: SARS-COV-2 Antigen Rapid; Complete Time: 19:18 rn 04/29 17:54 Order name: BNP; Complete Time: 19:18 rn 04/29 17:54 Order name: XRAY Chest Pa And Lat (2 Views); Complete Time: 18:31 rn 04/29 17:54 Order name: EKG; Complete Time: 17:55 rn 04/29 17:54 Order name: IV Start; Complete Time: 18:35 rn 04/29 17:54 Order name: EKG - Nurse/Tech; Complete Time: 18:49 rn EC:17 Rate is 83 beats/min. Rhythm is regular. QT interval is normal. No Q waves. T waves are rn Normal. No ST changes noted. Clinical impression: Paced rhythm. Interpreted by me. Reviewed by me. Administered Medications: 19:28 Drug: Furosemide IVP 60 mg IVP once; give over 2 minutes Route: IVP; Site: left aa10 antecubital; 20:02 Follow up: Response: No adverse reaction; Marked relief of symptoms aa10 Disposition Summary: 04/29/24 19:59 Discharge Ordered Notes: Location: Home rn Problem: an acute exacerbation rn Symptoms: have improved rn Condition: Stable rn Diagnosis - Acute pulmonary edema rn - Unspecified combined systolic (congestive) and diastolic (congestive) heart failure rn Followup: rn - With: Private Physician - When: As needed - Reason: Recheck today's complaints, Re-evaluation by your physician Discharge Instructions: - Discharge Summary Sheet rn - Pulmonary Edema rn Forms: - Medication Reconciliation Form rn - Antibiotic recruitment intern - Prescription Opioid Use rn - Patient Portal Instructions rn - Leadership Thank You Letter rn Signatures: Dispatcher [employer] EDPorter Padilla MD MD rn Eddleman, Michelle RN RN me1 Priya Perez RN RN aa10
[2024-04-29 20:34] LABS: Anisocytosis 1+; Blood Morphology Comment NOTED (NOT SEEN); Platelet Estimate ADEQ; White Blood Cell Scan OK (OK)
[2024-04-29 20:35] LABS: Poikilocytosis 1+
[2024-04-30 05:58] VITALS: O2SAT 100
[2024-04-30 06:00] VITALS: BP 146/91; TEMP 98
== END 2024-04-29 20:23 | disposition home or self-care (01) ==
LOC: ER 17:41
DX: J81.0 Acute pulmonary edema (principal); I50.40 Unspecified combined systolic (congestive) and diastolic (congestive) heart failure; I48.91 Unspecified atrial fibrillation; Z95.0 Presence of cardiac pacemaker; Z11.52 Encounter for screening for COVID-19
CPT/HCPCS: 93005; 85025; 80048; 36415; 83880; 87804 ×2; 71046; 96374; 99285; 87811; J1940

== ENCOUNTER 2024-05-25 01:32 | Observation (INO) | payer OTHER ==
[2024-05-25 03:42] LABS: Albumin 3.1 g/dL (3.4-5.0); Albumin/Globulin Ratio 0.7 (1.1-1.8); Anion Gap 8.1 mEq/L (5.0-15.0); Bilirubin Direct 0.3 mg/dL (0-0.2); Bilirubin Indirect, Calculated 0.6 mg/dL (0.2-0.8); Bilirubin Total 0.9 mg/dL (0.2-1.0); Globulin 4.6 g/dL (2.3-3.5); Potassium 4.1 mEq/L (3.5-5.1); Protein, Total 7.7 g/dL (6.4-8.2); Troponin High Sensitivity 19.7 pg/mL (<58.9)
[2024-05-25 03:48] LABS: Absolute Eosinophils 0.1 K/uL (0-0.5); Absolute Lymphocytes (CBC) 0.6 K/uL (0.7-4.9); Absolute Monocytes 0.3 K/uL (0.1-1.3); Absolute Neutrophil 2.8 K/uL (1.8-8.0); Eosinophils % 2.4 % (0-4.4); Hematocrit 35.9 % (39.6-49.0); Hemoglobin 11.1 g/dL (13.6-17.9); Lymphocytes % 15.2 % (15.3-44.8); MCH 29.4 pg (27.0-35.0); MCV 94.7 fL (80-100); MPV 9.4 fL (7.6-11.3); Monocytes % 7.5 % (3.3-12.3); Neutrophils % 73.9 % (41.7-73.7); Nucleated Red Blood Cells % 0.5 % (0-0); Platelets 168 thou/uL (152-406); RBC Red Blood Cell Count 3.79 M/uL (4.33-5.43); Red Cell Distribution Width 19.8 % (12.1-15.2)
--- NOTE | 2024-05-25 05:29 | RAD REPORT ---
EXAM DESCRIPTION: Chest Single View RadLex: XR CHEST 1 VIEW CLINICAL HISTORY: 69 years Male, DYSPNEA COMPARISON: 04/29/2024 FINDINGS: Single portable AP upright view of the chest. Left infraclavicular generator pack and pacing leads ar e stable. Stable cardiomegaly and pulmonary vascular congestion. No significant change in bilateral pulmonary opacities and left pleural effusion. No pneumothorax. Osseous structures are stable. IMPRESSION: No significant change in appearance of the chest. Electronically signed by: Kassi Cuevas MD 05/25/2024 05:25 AM CDT Due to temporary technical issues with the PACS/[employer] reporting system, reports are being jill d by the in-house radiologist without review as a courtesy to ensure prompt reporting the interpreting radiologist is fully responsible for the content of the report. Transcribed Date/Time: 05/25/2024 5:29 AM
--- NOTE | 2024-05-25 06:18 | EDPHYS ---
Physician Documentation [facility] Name: Ángel Haddad Age: 69 yrs Sex: Male : 1955 Arrival Date: 05/25/2024 Time: 01:32 Bed 8 Private MD: ED Physician Lucas Worrell HPI: 05/25 03:07 This 69 yrs old Male presents to ER via Unassigned with complaints of Breathing rt Difficulty. 03:07 Patient presents to the ED with dyspnea. Patient cc chronically on 3 L of oxygen, rt states that his oxygen concentrator did stop working. Reports a chest pain, denies other acute complaints, symptoms are moderate severity, no other aggravating alleviating factors.. Historical: - Allergies: 01:45 Adhesives; ha1 01:45 apixaban; ha1 01:45 tramadol; ha1 01:45 CLOPIDOGREL; ha1 - Home Meds: 01:45 levothyroxine 100 mcg tablet daily [Active]; tamsulosin 0.4 mg Oral capsule daily ha1 [Active]; sumatriptan succinate 100 mg Oral tablet [Active]; sotalol 120 mg Oral tablet 2 times per day [Active]; ramipril 10 mg Oral capsule daily [Active]; - PMHx: 01:45 Atrial Fib; CVA; kidney failure; Myocardial infarction; Pace maker; ha1 - PSHx: 01:45 Appendectomy; Coronary Angioplasty; Cholecystectomy; pacemaker; ha1 - Immunization history:: Adult Immunizations up to date. - Infectious Disease History:: Denies. - Family history:: not pertinent. - Social history:: Smoking status: Patient denies any tobacco usage or history of. ROS: 03:07 Constitutional: Negative for fever, chills, and weight loss, Abdomen/GI: Negative for rt abdominal pain, nausea, vomiting, diarrhea, and constipation, Back: Negative for injury and pain, MS/Extremity: Negative for injury and deformity, Skin: Negative for injury, rash, and discoloration, Neuro: Negative for headache, weakness, numbness, tingling, and seizure, 03:07 Cardiovascular: Positive for chest pain, Negative for edema, 03:07 Respiratory: Positive for shortness of breath, Negative for cough, Exam: 03:07 ECG was reviewed by the Attending Physician. rt 03:07 Respiratory: Coarse breath sounds bilaterally, mild respiratory distress, Vital Signs: 01:45 BP 101 / 79; Pulse 81; Resp 17 S; Temp 97.3; Pulse Ox 95% on R/A; Weight 89.81 kg; ha1 Height 6 ft. 2 in. ; 04:59 BP 133 / 84; Pulse 83; Resp 18; Pulse Ox 92% on 3 lpm NC; cp4 05:30 BP 135 / 86; Pulse 64; Resp 17; Pulse Ox 99% on 3 lpm NC; dd2 06:00 BP 130 / 81; Pulse 74; Resp 18; Pulse Ox 100% on 3 lpm NC; dd2 07:39 BP 147 / 99; Pulse 81; Resp 19; Pulse Ox 100% on 3 lpm NC; ap3 01:45 Body Mass Index 25.42 (89.81 kg, 187.96 cm) ha1 MDM: 01:54 Medical Screening Exam initiated rt 06:18 Differential diagnosis: Chronic hypoxia, pneumonia, CHF. Data reviewed: vital signs, rt nurses notes, lab test result(s), EKG, radiologic studies. Consideration of Admission/Observation Patient was admitted/placed on observation. Management of patient was discussed with the following: Hospitalist: Agrees to admit. Independent interpretation of the following test(s) in the Emergency Department X-Ray: My interpretation is No infiltrate seen on my interpretation of x-ray images. Care significantly affected by the following chronic conditions: Chronic Kidney Disease. Counseling: I had a detailed discussion with the patient and/or guardian regarding the historical points, exam findings, and any diagnostic results supporting the discharge/admit diagnosis, lab results, radiology results, the need for further work-up and treatment in the hospital. Response to treatment: the patient's symptoms have markedly improved after treatment. 03 01:59 Order name: Basic Metabolic Panel; Complete Time: 03:52 rt 05/25 01:59 Order name: CBC with Diff; Complete Time: 03:52 rt 05/25 01:59 Order name: LFT's; Complete Time: 03:52 rt 03 01:59 Order name: NT PRO-BNP; Complete Time: 03:52 rt 03 01:59 Order name: Troponin HS; Complete Time: 03:52 rt 05/25 08:35 Order name: Basic Metabolic Panel EDMS 05/25 08:35 Order name: Basic Metabolic Panel EDMS 05/25 08:35 Order name: CBC with Automated Diff EDMS 05/25 08:35 Order name: CBC with Automated Diff EDMS 05/25 08:35 Order name: Magnesium EDMS 05/25 08:35 Order name: Magnesium EDMS 05/25 08:35 Order name: Phosphorus EDMS 05/25 08:35 Order name: Phosphorus EDMS 05/25 01:59 Order name: XRAY Chest (1 view) rt 05/25 01:59 Order name: EKG; Complete Time: 01:59 rt 05/25 08:35 Order name: Social Service Consult EDMS 05/25 01:59 Order name: Cardiac monitoring; Complete Time: 03:01 rt 05/25 01:59 Order name: EKG - Nurse/Tech; Complete Time: 03:01 rt 05/25 01:59 Order name: IV Saline Lock; Complete Time: 03:01 rt 05/25 01:59 Order name: Labs collected and sent; Complete Time: 03:01 rt 05/25 01:59 Order name: O2 Per Protocol; Complete Time: 03:01 rt 05/25 01:59 Order name: O2 Sat Monitoring; Complete Time: 03:01 rt EC:07 Rate is 80 beats/min. Rhythm is regular, Paced with No ectopy, Intraventricular block rt noted. QRS [place] is Normal. No Q waves. No ST changes noted. Interpreted by me. Administered Medications: No medications were administered Disposition Summary: 05/25/24 06:18 Hospitalization Ordered Notes: Hospitalization Status: Observation rt Provider: Surya Alcazar rt Location: Telemetry/MedSurg (observation) rt Condition: Stable rt Problem: an ongoing problem rt Symptoms: have improved rt Bed/Room Type: Standard rt Room Assignment: 413(05/25/24 07:56) bc6 Diagnosis - Hypoxia rt Forms: - Medication Reconciliation Form rt - SBAR form rt - Leadership Thank You Letter rt Signatures: Dispatcher Kristina Tobin RN RN ha1 Lucas Worrell MD MD rt Eusebia Cordova bc6 Analia Hudson cp4 Corrections: (The following items were deleted from the chart) 07:56 06:18 rt bc6
--- NOTE | 2024-05-25 06:18 | ER ---
Nurse's Notes [facility] Name: Ángel Haddad Age: 69 yrs Sex: Male : 1955 Arrival Date: 05/25/2024 Time: 01:32 Bed 8 Private MD: Diagnosis: Hypoxia Presentation: 05/25 01:45 Chief complaint: Patient states: CHEST PAIN AND SHORTNESS OF BREATH. ha1 01:45 Coronavirus screen: Client denies travel out of the [place] in the last 14 days. Ebola ha1 Screen: No symptoms or risks identified at this time. Initial Sepsis Screen: Does the patient meet any 2 criteria? No. Patient's initial sepsis screen is negative. Does the patient have a suspected source of infection? No. Patient's initial sepsis screen is negative. Risk Assessment: Do you want to hurt yourself or someone else? Patient reports no desire to harm self or others. Onset of symptoms was May 25, 2024. 01:45 Method Of Arrival: Wheelchair ha1 01:45 Acuity: MARGO 2 ha1 Triage Assessment: 01:45 General: Appears uncomfortable, Behavior is cooperative. Pain: Complains of pain in ha1 chest Pain does not radiate. Pain currently is 7 out of 10 on a pain scale. Quality of pain is described as pressure. Neuro: Level of Consciousness is awake, alert, obeys commands, Oriented to person, place, time, situation. Cardiovascular: Capillary refill < 3 seconds Patient's skin is warm and dry. Respiratory: Reports shortness of breath at rest Airway is patent Respiratory effort is even, unlabored, Respiratory pattern is regular, symmetrical, Onset: The symptoms/episode began/occurred gradually, the patient has moderate shortness of breath. GI: No signs and/or symptoms were reported involving the gastrointestinal system. : No signs and/or symptoms were reported regarding the genitourinary system. Derm: Skin is normal. Musculoskeletal: Circulation, motion, and sensation intact. Historical: - Allergies: 01:45 Adhesives; ha1 01:45 apixaban; ha1 01:45 tramadol; ha1 01:45 CLOPIDOGREL; ha1 - Home Meds: 01:45 levothyroxine 100 mcg tablet daily [Active]; tamsulosin 0.4 mg Oral capsule daily ha1 [Active]; sumatriptan succinate 100 mg Oral tablet [Active]; sotalol 120 mg Oral tablet 2 times per day [Active]; ramipril 10 mg Oral capsule daily [Active]; - PMHx: 01:45 Atrial Fib; CVA; kidney failure; Myocardial infarction; Pace maker; ha1 - PSHx: 01:45 Appendectomy; Coronary Angioplasty; Cholecystectomy; pacemaker; ha1 - Immunization history:: Adult Immunizations up to date. - Infectious Disease History:: Denies. - Family history:: not pertinent. - Social history:: Smoking status: Patient denies any tobacco usage or history of. Screenin:11 [facility] ED Fall Risk Assessment (Adult) History of falling in the last 3 months, cp4 including since admission No falls in past 3 months (0 pts) Confusion or Disorientation No (0 pts) Intoxicated or Sedated No (0 pts) Impaired Gait No (0 pts) Mobility Assist Device Used No (0 pt) Altered Elimination No (0 pt) Score/Fall Risk Level 0 - 2 = Low Risk Oriented to surroundings, Maintained a safe environment, Assessed \T\ reinforced patient's understanding of fall precautions, Hourly rounding (assess needs \T\ fall precautionary measures) done. Abuse screen: Denies threats or abuse. Denies injuries from another. Nutritional screening: No deficits noted. Tuberculosis screening: No symptoms or risk factors identified. Assessment: 03:11 General: Appears in no apparent distress. uncomfortable, Behavior is calm, cooperative, cp4 appropriate for age. Pain: Complains of pain in chest Pain does not radiate. Pain currently is 7 out of 10 on a pain scale. Neuro: Level of Consciousness is awake, alert, obeys commands, Oriented to person, place, time, situation. Cardiovascular: Patient's skin is warm and dry. Rhythm is regular. Respiratory: Airway is patent Respiratory effort is even, unlabored, Breath sounds are clear bilaterally. GI: No signs and/or symptoms were reported involving the gastrointestinal system. : No signs and/or symptoms were reported regarding the genitourinary system. EENT: No signs and/or symptoms were reported regarding the EENT system. Derm: No signs and/or symptoms reported regarding the dermatologic system. Musculoskeletal: No signs and/or symptoms reported regarding the musculoskeletal system. 07:20 Reassessment: Patient and/or family updated on plan of care and expected duration. Pain ap3 level reassessed. Patient is alert, oriented x 3, equal unlabored respirations, skin warm/dry/pink. Reassessment: patient readjusted in bed. General: Appears in no apparent distress. Behavior is calm, cooperative, appropriate for age. Neuro: Level of Consciousness is awake, alert, obeys commands, Oriented to person, place, time, situation. Respiratory: Airway is patent Respiratory effort is even, unlabored, patient on 3 liters o2 via nasal canula at this time. GI: No signs and/or symptoms were reported involving the gastrointestinal system. : No signs and/or symptoms were reported regarding the genitourinary system. Vital Signs: 01:45 BP 101 / 79; Pulse 81; Resp 17 S; Temp 97.3; Pulse Ox 95% on R/A; Weight 89.81 kg; ha1 Height 6 ft. 2 in. ; 04:59 BP 133 / 84; Pulse 83; Resp 18; Pulse Ox 92% on 3 lpm NC; cp4 05:30 BP 135 / 86; Pulse 64; Resp 17; Pulse Ox 99% on 3 lpm NC; dd2 06:00 BP 130 / 81; Pulse 74; Resp 18; Pulse Ox 100% on 3 lpm NC; dd2 07:39 BP 147 / 99; Pulse 81; Resp 19; Pulse Ox 100% on 3 lpm NC; ap3 01:45 Body Mass Index 25.42 (89.81 kg, 187.96 cm) ha1 ED Course: 01:35 Patient arrived in ED. gm2 01:39 Lucas Worrell MD is Attending Physician. rt 01:55 No provider procedures requiring assistance completed. EKG done, by ED staff, reviewed dd2 by Lucas Worrell MD. 03:00 Initial lab(s) drawn, by il, sent to lab. Inserted saline lock: 22 gauge in right cp4 antecubital area, using aseptic technique. Blood collected. Flushed with 10 mL NS. 03:11 Placed in gown. Bed in low position. Call light in reach. Side rails up X2. cp4 03:23 Triage completed. ha1 03:37 XRAY Chest (1 view) In Process Unspecified. EDMS 05:51 RINKU CAMPA, RN is Primary Nurse. dd2 06:18 Surya Alcazar is Hospitalizing Provider. rt 09:23 Patient admitted, IV remains in place. ap3 09:23 Arm band placed on right wrist. ap3 09:24 Provided Education on: need for admission. ap3 Administered Medications: No medications were administered Medication: 03:11 VIS not applicable for this client. cp4 Outcome: 06:18 Decision to Hospitalize by Provider. rt 09:23 Admitted to Med/surg ap3 09:23 Condition: good 09:23 Discharge instructions given to patient, Instructed on the need for admit, 09:24 Patient left the ED. ap3 Signatures: Dispatcher [employer] EDMS Angeles Rubin RN RN ap3 Kristina Soria RN RN ha1 Lucas Worrell MD MD rt Potter, Christina cp4 Rochelle Sheffield 2 RINKU CAMPA RN RN dd2
--- NOTE | 2024-05-25 08:05 | P.HP ---
Certification for Inpatient Patient admitted to: Observation With expected LOS: <2 Midnights Practitioner: I am a practitioner with admitting privileges, knowledge of patient current condition, hospital course, and medical plan of care. Services: Services provided to patient in accordance with Admission requirements found in Title 42 Section 412.3 of the Code of Federal Regulations Patient History Date of Service: 05/25/24 Reason for admission: acute hypoxic respiratory failure History of Present Illness: Ángel Haddad is a 69 year old male with pmhx Atrial Fib with watchman in place; multiple CVA; kidney failure; Myocardial infarction; Pacemaker, hypothyroidism, brainstem hemorrhage (1999), CKD stage III, BPH, gout, GERD is who presents to the ED when both oxygen concentrators broke causing a drop to his oxygen saturation. He reports having a small oxygen tank that was less than half full so he came to the ED in need of oxygen support. He is chronically on 3 LNC. Chest xray reports "Single portable AP upright view of the chest. Left infraclavicular generator pack and pacing leads are stable. Stable cardiomegaly and pulmonary vascular congestion. No significant change in bilateral pulmonary opacities and left pleural effusion. No pneumothorax. Osseous structures are stable." Ángel will be admitted to hospitalist service for further evaluation and treatment of acute hypoxic respiratory failure 2/2 acute on chronic decompensated CHF exacerbation Allergies apixaban [From Eliquis] Allergy (Severe, Verified 02/21/23 08:19) Itching/Hives/Rash tramadol Allergy (Severe, Verified 02/21/23 08:19) Nausea/Vomiting clopidogrel [From Plavix] Allergy (Intermediate, Verified 02/21/23 08:19) Itching/Hives/Rash dabigatran etexilate [From Pradaxa] Allergy (Verified 02/21/23 08:19) Hives/Rash rivaroxaban [From Xarelto] Allergy (Verified 02/21/23 08:19) Hives/Rash Adhesives Allergy (Severe, Uncoded 02/21/23 08:19) Rash/Whelps Home Medications: Allopurinol 300 mg PO DAILY 01/26/24 Baclofen [Lioresal*] 10 mg PO DAILY tab 01/26/24 Escitalopram [Lexapro*] 20 mg PO DAILY 01/26/24 Furosemide [Lasix*] 40 mg PO BID 01/26/24 Gabapentin 300 mg PO TID 01/26/24 Levothyroxine [Synthroid*] 0.88 mcg PO DAILY 01/26/24 Meclizine HCl 12.5 mg PO DAILY PRN 01/26/24 Pantoprazole [Protonix Tab*] 40 mg PO DAILY 01/26/24 Ramipril [Altace] 10 mg PO DAILY 01/26/24 Sotalol HCl [Sotalol] 80 mg PO BID 01/26/24 Tamsulosin [Flomax*] 0.4 mg PO BID 01/26/24 - Past Medical/Surgical History Diabetic: No -: 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 arm -: apendectomy -: pacemaker Psychosocial/ Personal History: Patient is retired, lives at home with his - Family History Father -: Heart disease, Kidney disease Notes: sacoidosis Mother -: Heart disease Notes: dementia, alzheimers Brother -: Heart disease, Stroke - Social History Alcohol use: No CD- Drugs: No Caffeine use: Yes Review of Systems Other: per HPI Physical Examination - Physical Exam General: Alert, In no apparent distress, Oriented x3 HEENT: Atraumatic, Normocephalic, Other (Right eye ), Abnormal EOM (right esotropia) Neck: Supple, 2+ carotid pulse no bruit Respiratory: Clear to auscultation bilaterally, Normal air movement Cardiovascular: No edema, Normal pulses, Regular rate/rhythm Capillary refill: <2 Seconds Gastrointestinal: Normal bowel sounds Musculoskeletal: No clubbing Integumentary: No rashes Neurological: Normal speech, Other - Studies Laboratory Data (last 24 hrs) 05/25/24 05/25/24 03:02 03:02 WBC 3.80 L Hgb 11.1 L Hct 35.9 L Plt Count 168 Sodium 139 Potassium 4.1 BUN 18 Creatinine 1.57 H Glucose 95 Total Bilirubin 0.9 AST 22 ALT 24 Alkaline Phosphatase 100 Assessment and Plan - Plan Assessment and Plan Acute Hypoxic Respiratory Failure 2/2 Acute on Chronic Decompensated CHF Exacerbation -requiring 3 LNC, oxygen protocol -both oxygen concentrators have broke, uses [employer] -director of perioperative services consult- [facility] will have tech and portable oxygen available tomorrow (05/26) -David CKD stage 3 BPH -Gentle IVF -reports urinates very little, not on dialysis -Follows with Dr Bruce Barrera Multiple CT -watchman and Pacemaker, in place -allergic to all anticoagulants and plavix, except heparin Multiple CVA Hypothyroidism brainstem hemorrhage (1999) Gout GERD -Continue home medication -Supportive care DVT ppx heparin full code LOS 24 hour OBS Discharge Plan: Home Plan to discharge in: 24 Hours - Advance Directives Does patient have a Living Will: No Does patient have a Durable POA for Healthcare: No
[2024-05-25] MEDS ORDERED: ACETAMINOPHEN 325 MG TABLET PO PRN (08:29)
[2024-05-25] MEDS: IPRATROPIUM BROM 0.5MG/2.5ML NEB SCH (09:00)
[2024-05-25] MEDS: ALBUTEROL 2.5 MG/3 ML NEB SOL NEB SCH (09:00)
[2024-05-25] MEDS: NA CHLORIDE 0.9% 1,000 ML IV SCH (10:48)
[2024-05-25] MEDS: HEPARIN 5000 UNIT/ML 1 ML VIAL SQ SCH (10:49)
[2024-05-25] MEDS ORDERED: MECLIZINE HCL 12.5 MG TAB PO PRN (14:52)
[2024-05-25] MEDS: SOTALOL HCL 80 MG TAB PO SCH (14:53)
[2024-05-25] MEDS: GABAPENTIN 300 MG CAP PO SCH (21:05)
[2024-05-25] MEDS: FUROSEMIDE 40 MG TABLET PO SCH (21:05)
[2024-05-25] MEDS: TAMSULOSIN 0.4 MG SR CAP PO SCH (21:06)
[2024-05-26] MEDS: LEVOTHYROXINE SOD 0.088 MG TAB PO SCH (05:49)
[2024-05-26 07:12] LABS: Anion Gap 7.7 mEq/L (5.0-15.0); Magnesium 1.6 mg/dL (1.6-2.4); Phosphorus 3.4 mg/dL (2.5-4.9); Potassium 3.7 mEq/L (3.5-5.1)
[2024-05-26 07:21] LABS: Absolute Basophils 0.1 K/uL (0-0.5); Absolute Eosinophils 0.1 K/uL (0-0.5); Absolute Lymphocytes (CBC) 0.4 K/uL (0.7-4.9); Absolute Monocytes 0.3 K/uL (0.1-1.3); Basophils % 1.3 % (0-1.3); Eosinophils % 2.3 % (0-4.4); Hematocrit 29.1 % (39.6-49.0); Hemoglobin 9.2 g/dL (13.6-17.9); Lymphocytes % 11.4 % (15.3-44.8); MCH 29.7 pg (27.0-35.0); MCHC 31.7 g/dL (32.0-36.0); MCV 93.7 fL (80-100); MPV 9.4 fL (7.6-11.3); Nucleated Red Blood Cells % 0.3 % (0-0); Platelets 127 thou/uL (152-406); Red Cell Distribution Width 19.7 % (12.1-15.2)
[2024-05-26] MEDS: ramipriL 5 MG CAP PO SCH (07:37)
[2024-05-26] MEDS: allopurinoL 300 MG TAB PO SCH (07:38)
[2024-05-26] MEDS: ESCITALOPRAM 20 MG TAB PO SCH (07:38)
[2024-05-26] MEDS: PANTOPRAZOLE 40MG TABLET PO SCH (07:38)
[2024-05-26] MEDS: BACLOFEN 10 MG TAB PO SCH (07:39)
[2024-05-26 09:58] VITALS: BMI 25.9
[2024-05-26 14:54] VITALS: BP 125/75; TEMP 97.4
[2024-05-26 15:31] VITALS: O2SAT 100
--- NOTE | 2024-05-26 16:39 | P.DS ---
Admission Date: 05/25/24 Discharge Date: 05/26/24 Disposition: ROUTINE DISCHARGE Discharge Condition: GOOD Reason for Admission: acute hypoxic respiratory failure Brief History of Present Illness: Diagnosis Acute Hypoxic Respiratory Failure 2/2 Acute on Chronic Decompensated CHF Exacerbation CKD stage 3 BPH Afib Multiple SD Multiple CVA Hypothyroidism brainstem hemorrhage (1999) Gout GERD HPI 05/25/24 Ángel Haddad is a 69 year old male with pmhx Atrial Fib with watchman in place; multiple CVA; kidney failure; Myocardial infarction; Pacemaker, hypothyroidism, brainstem hemorrhage (1999), CKD stage III, BPH, gout, GERD is who presents to the ED when both oxygen concentrators broke causing a drop to his oxygen saturation. He reports having a small oxygen tank that was less than half full so he came to the ED in need of oxygen support. He is chronically on 3 LNC. Chest xray reports "Single portable AP upright view of the chest. Left infraclavicular generator pack and pacing leads are stable. Stable cardiomegaly and pulmonary vascular congestion. No significant change in bilateral pulmonary opacities and left pleural effusion. No pneumothorax. Osseous structures are stable." Ángel will be admitted to hospitalist service for further evaluation and treatment of acute hypoxic respiratory failure 2/2 acute on chronic deco mpensated CHF exacerbation Hospital Course: Patient was admitted and treated for the following diagnosis Acute Hypoxic Respiratory Failure 2/2 Acute on Chronic Decompensated CHF Exacerbation -home Oxygen ordered -both oxygen concentrators have broken, uses [employer] -caregiver services home consult- [employer] will have tech and portable oxygen available tomorrow (05/26) -David CKD stage 3 BPH -tolerated Gentle IVF -reported urinates very little, not on dialysis -Follows with Dr Bruce Barrera Multiple SD -watchman and Pacemaker in place -allergic to all anticoagulants and plavix, except heparin Multiple CVA Hypothyroidism brainstem hemorrhage (1999) Gout GERD -Continued home medication -Supportive care provided On 05/26/2024, Ángel was seen on morning rounds and deemed hemodynamically stable. Oxygen has been delivered and he is ready for discharge. No complications during this admission. Physical Exam General: AAOx3, NAD, calm and cooperative HEENT: Atraumatic, Normocephalic, Other (Right eye ), Abnormal EOM (right esotropia) Neck: Supple, 2+ carotid pulse no bruit Respiratory: Clear BBS, Normal air movement, on RA Cardiovascular: No edema, Normal pulses, RRR Capillary refill: <2 Seconds Gastrointestinal: Normal bowel sounds Musculoskeletal: No clubbing Integumentary: No rashes Neurological: Normal speech, Other Vital Signs/Physical Exam: Temp Pulse Resp BP Pulse Ox 97.4 F 139 H 19 125/75 98 05/26/24 12:00 05/26/24 12:00 05/26/24 12:00 05/26/24 12:00 05/26/24 12:00 Laboratory Data at Discharge: WBC 3.90 thou/uL (4.3-10.9) L 05/26/24 05:43 Hgb 9.2 g/dL (13.6-17.9) L D 05/26/24 05:43 Hct 29.1 % (39.6-49.0) L 05/26/24 05:43 Plt Count 127 thou/uL (152-406) L 05/26/24 05:43 Sodium 138 mEq/L (136-145) 05/26/24 05:43 Potassium 3.7 mEq/L (3.5-5.1) 05/26/24 05:43 BUN 18 mg/dL (7-18) 05/26/24 05:43 Creatinine 1.42 mg/dL (0.70-1.30) H 05/26/24 05:43 Glucose 125 mg/dL (74-106) H 05/26/24 05:43 Phosphorus 3.4 mg/dL (2.5-4.9) 05/26/24 05:43 Magnesium 1.6 mg/dL (1.6-2.4) 05/26/24 05:43 Total Bilirubin 0.9 mg/dL (0.2-1.0) 05/25/24 03:02 AST 22 U/L (15-37) 05/25/24 03:02 ALT 24 U/L (16-61) 05/25/24 03:02 Alkaline Phosphatase 100 U/L (45-117) 05/25/24 03:02 Home Medications: Allopurinol 300 mg PO DAILY 01/26/24 Baclofen [Lioresal*] 10 mg PO DAILY tab 01/26/24 Escitalopram [Lexapro*] 20 mg PO DAILY 01/26/24 Furosemide [Lasix*] 40 mg PO BID 01/26/24 Gabapentin 300 mg PO TID 01/26/24 Levothyroxine [Synthroid*] 0.88 mcg PO DAILY 01/26/24 Meclizine HCl 12.5 mg PO DAILY PRN 01/26/24 Pantoprazole [Protonix Tab*] 40 mg PO DAILY 01/26/24 Ramipril [Altace] 10 mg PO DAILY 01/26/24 Sotalol HCl [Sotalol] 80 mg PO BID 01/26/24 Tamsulosin [Flomax*] 0.4 mg PO BID 01/26/24 Physician Discharge Instructions: 1. Please call and schedule a follow-up appointment with your PCP in 3-5 days - Please follow-up with your PCP for medication refills/adjustments -Please use oxygen as prescribed 2. Continue heart healthy diet 3. activity restrictions fall precaution 4. Return to the ED if symptoms worsen Continue home medications as prescribed Diet: AHA Activity: Fall precautions Followup: Jose Aguilar MD [Primary Care Provider] -
--- NOTE | 2024-05-27 11:07 | EKG ---
Test Date: 2024-05-25 Test Time: 01:53:45 [employer] Foreperson: MENDEZ MEASUREMENT RESULTS: Intervals: Rate: 80 CO: QRSD: 182 QT: 486 QTc: 560 Ryder: P: CO: QRS: 182 T: 95 INTERPRETIVE STATEMENTS: V paced rhythm Nonspecific intraventricular block Inferior infarct, age undetermined Abnormal ECG Compared to ECG 04/29/2024 18:44:34 Myocardial infarct finding now present Electronically Signed On 05-27-24 11:01:29 CDT by Yosvany Blount
== END 2024-05-26 17:01 | disposition home or self-care (01) ==
LOC: ER 01:32 → 4TH 09:24
PROVIDERS: ADMIT Internal Medicine; ATTEND Internal Medicine
DX: I50.9 Heart failure, unspecified (principal); J96.91 Respiratory failure, unspecified with hypoxia; I48.11 Longstanding persistent atrial fibrillation; I25.2 Old myocardial infarction; E03.9 Hypothyroidism, unspecified; N18.30 Chronic kidney disease, stage 3 unspecified; M10.9 Gout, unspecified; K21.9 Gastro-esophageal reflux disease without esophagitis; N40.0 Benign prostatic hyperplasia without lower urinary tract symptoms; Z95.0 Presence of cardiac pacemaker; Z86.73 Personal history of transient ischemic attack (TIA), and cerebral infarction without residual deficits
CPT/HCPCS: 93005; 85025 ×2; 80048 ×2; 36415 ×2; 83735; 84100; 80076; 84484; 83880; 71045; 94640; 99285; J1644 ×4; J7613 ×4; J7644 ×4; J7030

== ENCOUNTER 2024-07-08 22:53 | Inpatient (IN) | payer OTHER ==
[2024-07-08 23:54] LABS: PT Prothrombin Time 16.3 SECONDS (10-13.0); Protime INR 1.46
[2024-07-09 00:05] LABS: Absolute Eosinophils 0.1 K/uL (0-0.5); Absolute Lymphocytes (CBC) 0.6 K/uL (0.7-4.9); Absolute Monocytes 0.5 K/uL (0.1-1.3); Absolute Neutrophil 3.4 K/uL (1.8-8.0); Anion Gap 4.1 mEq/L (5.0-15.0); Basophils % 0.8 % (0-1.3); Eosinophils % 2.4 % (0-4.4); Hematocrit 36.8 % (39.6-49.0); Hemoglobin 11.8 g/dL (13.6-17.9); MCH 31.1 pg (27.0-35.0); MPV 9.3 fL (7.6-11.3); Monocytes % 10.1 % (3.3-12.3); Neutrophils % 73.7 % (41.7-73.7); Nucleated Red Blood Cells % 0.8 % (0-0); Platelets 150 thou/uL (152-406); Potassium 3.1 mEq/L (3.5-5.1); Red Cell Distribution Width 21.2 % (12.1-15.2); Troponin High Sensitivity 30.3 pg/mL (<58.9)
--- NOTE | 2024-07-09 00:15 | EDPHYS ---
Physician Documentation [facility] Name: Ángel Haddad Age: 69 yrs Sex: Male : 1955 Arrival Date: 07/08/2024 Time: 22:53 Bed 27 Private MD: ED Physician Bhavna Jarvis Historical: - Allergies: 07/08 23:05 Adhesives; br2 23:05 apixaban; br2 23:05 CLOPIDOGREL; br2 23:05 tramadol; br2 23:05 Plavix; br2 23:05 Eliquis; br2 - Immunization history:: Adult Immunizations not up to date. - Infectious Disease History:: Denies. - Social history:: Smoking status: Patient denies any tobacco usage or history of. Patient/guardian denies using alcohol, street drugs. Vital Signs: 23:03 BP 148 / 95; Pulse 82; Resp 18; Temp 97.3; Pulse Ox 99% ; Weight 89.81 kg; Height 6 ft. br2 2 in. ; Pain 5/10; 23:50 BP 134 / 78; Pulse 83; Resp 25; Pulse Ox 98% ; vc1 23:03 Body Mass Index 25.42 (89.81 kg, 187.96 cm) br2 23:03 Pain Scale: Adult br2 MDM: 22:59 Medical Screening Exam initiated 07/08 22:59 Order name: Basic Metabolic Panel; Complete Time: 00:10 07/08 22:59 Order name: CBC with Diff 07/08 22:59 Order name: NT PRO-BNP; Complete Time: 00:10 07/08 22:59 Order name: PT-INR; Complete Time: 00:01 07/08 22:59 Order name: Troponin HS; Complete Time: 00:10 07/09 00:11 Order name: CBC Smear Scan EDMS 07/09 02:17 Order name: CBC with Automated Diff EDMS 07/09 02:17 Order name: Comprehensive Metabolic Panel EDMS 07/09 02:17 Order name: Troponin High Sensitivity EDMS 07/09 02:17 Order name: Troponin High Sensitivity EDMS 07/09 02:17 Order name: Troponin High Sensitivity EDMS 07/09 02:17 Order name: Troponin High Sensitivity EDMS 07/09 02:17 Order name: Troponin High Sensitivity EDMS 07/08 22:59 Order name: XRAY Chest (1 view) gb1 07/09 02:17 Order name: Echo with Doppler EDSD 07/08 22:59 Order name: Cardiac monitoring; Complete Time: 23:09 gb1 07/08 22:59 Order name: EKG - Nurse/Tech; Complete Time: 23:09 gb1 07/08 22:59 Order name: IV Saline Lock; Complete Time: 23: gb1 07/08 22:59 Order name: Labs collected and sent; Complete Time: 23:09 gb1 07/08 22:59 Order name: O2 Per Protocol; Complete Time: 23: gb1 07/08 22:59 Order name: O2 Sat Monitoring; Complete Time: : Administered Medications: 07/09 00:28 Drug: Furosemide IVP 60 mg IVP once; give over 2 minutes Route: IVP; Site: right cp4 antecubital; 00:45 Follow up: Response: No adverse reaction cp4 Disposition Summary: 07/09/24 00:14 Hospitalization Ordered Notes: Hospitalization Status: Inpatient Admission gb1 Provider: Aviva Reno gb1 Condition: Fair gb1 Problem: an acute exacerbation gb1 Symptoms: have worsened gb1 Bed/Room Type: Standard 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
--- NOTE | 2024-07-09 00:15 | ER ---
Nurse's Notes [facility] Name: Ángel Haddad Age: 69 yrs Sex: Male : 1955 Arrival Date: 07/08/2024 Time: 22:53 Bed 27 Private MD: Diagnosis: Acute on chronic combined systolic (congestive) and diastolic (congestive) heart failure;Acute pulmonary edema Presentation: 07/08 23:03 Chief complaint: Patient states: C/O SOB MORE THAN NORMAL....PT IS OXYGEN DEPENDANT. br2 C/O CHEST PAIN. Coronavirus screen: Client denies travel out of the [place] in the last 14 days. Ebola Screen: Patient denies exposure to infectious person. Initial Sepsis Screen: Does the patient meet any 2 criteria? No. Patient's initial sepsis screen is negative. Does the patient have a suspected source of infection? No. Patient's initial sepsis screen is negative. Risk Assessment: Do you want to hurt yourself or someone else? Patient reports no desire to harm self or others. Onset of symptoms is unknown. 23:03 Method Of Arrival: Wheelchair br2 23:03 Acuity: MARGO 3 br2 Triage Assessment: 23:05 General: Appears uncomfortable, slender. General: Behavior is calm, cooperative. Pain: br2 Complains of pain in anterior aspect of right upper chest, anterior aspect of left upper chest, xiphoid area, mid-sternal area, right breast and left breast. EENT: No signs and/or symptoms were reported regarding the EENT system. Neuro: Level of Consciousness is awake, alert, obeys commands, Oriented to person, place, time, situation. Respiratory: Reports shortness of breath at rest on exertion Onset: The symptoms/episode began/occurred 1 WEEK, the patient has moderate shortness of breath. Historical: - Allergies: 23:05 Adhesives; br2 23:05 apixaban; br2 23:05 CLOPIDOGREL; br2 23:05 tramadol; br2 23:05 Plavix; br2 23:05 Eliquis; br2 - Immunization history:: Adult Immunizations not up to date. - Infectious Disease History:: Denies. - Social history:: Smoking status: Patient denies any tobacco usage or history of. Patient/guardian denies using alcohol, street drugs. Screenin:06 [facility] ED Fall Risk Assessment (Adult) History of falling in the last 3 months, cp4 including since admission No falls in past 3 months (0 pts) Confusion or Disorientation No (0 pts) Intoxicated or Sedated No (0 pts) Impaired Gait Yes (1 pt) Mobility Assist Device Used No (0 pt) Altered Elimination No (0 pt) Score/Fall Risk Level 0 - 2 = Low Risk Oriented to surroundings, Maintained a safe environment, Assessed \T\ reinforced patient's understanding of fall precautions, Hourly rounding (assess needs \T\ fall precautionary measures) done. Abuse screen: Denies threats or abuse. Denies injuries from another. Nutritional screening: No deficits noted. Tuberculosis screening: No symptoms or risk factors identified. Assessment: 23:06 General: Appears in no apparent distress. uncomfortable, Behavior is calm, cooperative, cp4 appropriate for age. Pain: Complains of pain in chest. Neuro: Level of Consciousness is awake, alert, obeys commands, Oriented to person, place, time, situation. Cardiovascular: Rhythm is Cardiovascular: Patient's skin is warm and dry. Respiratory: Airway is patent Respiratory effort is even, labored, Breath sounds are clear bilaterally. GI: No signs and/or symptoms were reported involving the gastrointestinal system. : No signs and/or symptoms were reported regarding the genitourinary system. EENT: No signs and/or symptoms were reported regarding the EENT system. Derm: No signs and/or symptoms reported regarding the dermatologic system. Musculoskeletal: No signs and/or symptoms reported regarding the musculoskeletal system. 23:51 Reassessment: No changes from previously documented assessment. Patient and/or family vc1 updated on plan of care and expected duration. Pain level reassessed. Patient is alert, oriented x 3, equal unlabored respirations, skin warm/dry/pink. Vital Signs: 23:03 BP 148 / 95; Pulse 82; Resp 18; Temp 97.3; Pulse Ox 99% ; Weight 89.81 kg; Height 6 ft. br2 2 in. ; Pain 5/10; 23:50 BP 134 / 78; Pulse 83; Resp 25; Pulse Ox 98% ; vc1 23:03 Body Mass Index 25.42 (89.81 kg, 187.96 cm) br2 23:03 Pain Scale: Adult br2 ED Course: 22:55 Patient arrived in ED. jj6 22:57 Bhavna Jarvis MD is Attending Physician. gb1 23:05 Triage completed. br2 23:05 Analia Hudson is Primary Nurse. cp4 23:06 Bed in low position. Call light in reach. Side rails up X 1. cp4 23:06 No provider procedures requiring assistance completed. Inserted saline lock: 20 gauge cp4 in right antecubital area, using aseptic technique. Blood collected. Flushed with 10 mL NS. 23:33 XRAY Chest (1 view) In Process Unspecified. EDMS 07/09 00:13 Aviva Reno MD is Hospitalizing Provider. gb1 00:44 Provided Education on: admission. cp4 00:44 Arm band placed on right wrist. Patient placed in an exam room, on a stretcher. cp4 00:44 Patient admitted, IV remains in place. cp4 Administered Medications: 00:28 Drug: Furosemide IVP 60 mg IVP once; give over 2 minutes Route: IVP; Site: right cp4 antecubital; 00:45 Follow up: Response: No adverse reaction cp4 Medication: 07/08 23:06 VIS not applicable for this client. cp4 Outcome: 07/09 00:14 Decision to Hospitalize by Provider. gb1 00:44 Admitted to ER Hold. Please see [facility] for further documentation. cp4 00:44 Condition: stable 00:44 Instructed on the need for admit, 05:47 Patient left the ED. hb Signatures: Dispatcher [employer] EDSD Dacia So, RN RN Lenka Delatorre jj6 Devi Jaramillo RN RN vc1 Bhavna Jarvis MD MD gb1 Analia Hudson cp4 Joann Bill RN RN br2
[2024-07-09] MEDS ORDERED: FUROSEMIDE 20 MG/ 2ML VIAL ONE (00:24)
[2024-07-09] MEDS ORDERED: FUROSEMIDE 40 MG/4 ML VIAL ONE (00:24)
[2024-07-09 01:07] LABS: Anisocytosis 1+; Blood Morphology Comment NOTED (NOT SEEN); Macrocytosis SLIGHT; Platelet Estimate ADEQ; Polychromasia 1+; White Blood Cell Scan OK (OK)
[2024-07-09] MEDS ORDERED: ONDANSETRON 4 MG/2 ML VIAL IV PRN (02:10)
[2024-07-09] MEDS ORDERED: ALBUTEROL 2.5 MG/3 ML NEB SOL NEB PRN (02:10)
[2024-07-09] MEDS ORDERED: ACETAMINOPHEN 500 MG TAB PO PRN (02:10)
--- NOTE | 2024-07-09 02:21 | P.HP ---
Patient History Date of Service: 07/09/24 Reason for admission: CHF exacerbation History of Present Illness: 69-year-old male with a past medical history of atrial fibrillation (Watchman), chronic combined systolic and diastolic heart failure, history of MA, presence of cardiac pacemaker, chronic kidney disease stage III, gout, hypothyroidism, presenting with shortness of breath for the last week. Associated symptoms include chest pain. Symptoms are exacerbated with exertion. Patient also relates he has had sinus surgery for the fifth time in 4 years. He was started on ciprofloxacin by an infectious disease specialist. He states he has been taking his Lasix at home. He endorses fevers and chills Allergies apixaban [From Eliquis] Allergy (Severe, Verified 07/09/24 03:55) Itching/Hives/Rash tramadol Allergy (Severe, Verified 07/09/24 03:55) Nausea/Vomiting clopidogrel [From Plavix] Allergy (Intermediate, Verified 07/09/24 03:55) Itching/Hives/Rash dabigatran etexilate [From Pradaxa] Allergy (Verified 07/09/24 03:55) Hives/Rash rivaroxaban [From Xarelto] Allergy (Verified 07/09/24 03:55) Hives/Rash Adhesives Allergy (Severe, Uncoded 07/09/24 03:55) Rash/Whelps Home Medications: Allopurinol 300 mg PO DAILY 01/26/24 Escitalopram [Lexapro*] 20 mg PO DAILY 01/26/24 Furosemide [Lasix*] 40 mg PO DAILY 01/26/24 Gabapentin 300 mg PO TID 01/26/24 Levothyroxine [Synthroid*] 0.88 mcg PO DAILY 01/26/24 Meclizine HCl 12.5 mg PO DAILY PRN 01/26/24 Pantoprazole [Protonix Tab*] 40 mg PO DAILY 01/26/24 Ramipril [Altace] 5 mg PO DAILY 01/26/24 Sotalol HCl [Sotalol] 120 mg PO BID 01/26/24 Tamsulosin [Flomax*] 0.4 mg PO BID 01/26/24 Amoxicillin/Potassium Clav [Amox Tr-K Clv 875-125 mg Tab] 1 tab PO BID 07/09/24 Baclofen 10 mg PO DAILYPRN PRN 04/23/25 Cholecalciferol (Vitamin D3) [Vitamin D 5,000 IU Cap*] 1 cap PO DIRECTED 07/09/24 - Past Medical/Surgical History Diabetic: No -: 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 arm -: apendectomy -: pacemaker Psychosocial/ Personal History: Patient is retired, lives at home with his - Family History Father -: Heart disease, Kidney disease Notes: sacoidosis Mother -: Heart disease Notes: dementia, alzheimers Brother -: Heart disease, Stroke - Social History Alcohol use: No CD- Drugs: No Caffeine use: Yes Review of Systems General: Fever, Weakness Eyes: Unremarkable ENT: Unremarkable Respiratory: Shortness of Breath Cardiovascular: Chest Pain Gastrointestinal: Unremarkable Genitourinary: Unremarkable Musculoskeletal: Unremarkable Integumentary: Unremarkable Neurological: Unremarkable Lymphatics: Unremarkable Physical Examination - Physical Exam General: Alert, In no apparent distress HEENT: Normocephalic Neck: Supple Respiratory: Diminished Cardiovascular: Edema Capillary refill: <2 Seconds Gastrointestinal: Normal bowel sounds Musculoskeletal: No clubbing Integumentary: No rashes Neurological: Normal strength at 5/5 x4 extr Lymphatics: No axilla or inguinal lymphadenopathy - Studies Laboratory Data (last 24 hrs) 07/08/24 07/08/24 07/08/24 23:05 23:05 23:05 WBC 4.60 Hgb 11.8 L Hct 36.8 L Plt Count 150 L PT 16.3 H INR 1.46 Sodium 139 Potassium 3.1 L BUN 18 Creatinine 1.53 H Glucose 93 Assessment and Plan - Plan CHF exacerbation Atrial fibrillation (s/p Watchman) Hypertension Chronic kidney disease stage III Hypothyroidism Hypokalemia Anemia BPH Gout GERD CAD History of MA History of CVA Presence of pacemaker Admit to floor Daily weights, fluid restrict, low-sodium diet Continue IV Lasix twice daily, echo pending Watchman and pacemaker in place Continue sotalol and ramipril Patient has allergy to anticoagulants including Plavix Follows with Dr. Barrera, monitor kidney function Replace potassium Continue allopurinol Continue Synthroid Continue Lexapro Trend troponins DVT prophylaxis with SCDs - Advance Directives Does patient have a Living Will: No Does patient have a Durable POA for Healthcare: No
[2024-07-09] MEDS ORDERED: POTASSIUM 25 MEQ EFFERV TAB ONE (04:28)
[2024-07-09] MEDS: POTASSIUM 25 MEQ EFFERV TAB PO ONE (04:30)
[2024-07-09 06:33] LABS: Absolute Eosinophils 0.1 K/uL (0-0.5); Absolute Lymphocytes (CBC) 0.7 K/uL (0.7-4.9); Absolute Monocytes 0.4 K/uL (0.1-1.3); Absolute Neutrophil 2.8 K/uL (1.8-8.0); Basophils % 0.9 % (0-1.3); Eosinophils % 3.5 % (0-4.4); Hematocrit 32.5 % (39.6-49.0); Hemoglobin 10.4 g/dL (13.6-17.9); MCH 31.2 pg (27.0-35.0); MCHC 32.1 g/dL (32.0-36.0); MCV 97.3 fL (80-100); MPV 9.3 fL (7.6-11.3); Monocytes % 10.6 % (3.3-12.3); Nucleated Red Blood Cells % 0.1 % (0-0); Platelets 126 thou/uL (152-406); RBC Red Blood Cell Count 3.34 M/uL (4.33-5.43); Red Cell Distribution Width 20.8 % (12.1-15.2)
[2024-07-09 06:56] LABS: Albumin 2.7 g/dL (3.4-5.0); Albumin/Globulin Ratio 0.7 (1.1-1.8); Anion Gap 4.1 mEq/L (5.0-15.0); Bilirubin Total 0.6 mg/dL (0.2-1.0); Globulin 3.8 g/dL (2.3-3.5); Potassium 3.1 mEq/L (3.5-5.1); Protein, Total 6.5 g/dL (6.4-8.2)
--- NOTE | 2024-07-09 06:57 | RAD REPORT ---
EXAMINATION: ONE VIEW CHEST XR CLINICAL INDICATION: Male, 69 years old.,SOB TECHNIQUE: Frontal chest projection is submitted. Examination is limited by patient positioning and t echnique. COMPARISON: 05/25/2024 FINDINGS: Partial improvement of central interstitial prominence and perihilar and left basilar hazy opacities. No pneumothorax. Component of left small effusion, mildly improved as well. Decreased inspiratory effort limits evaluation. The heart is upper limit of normal in size. Mediastinal contours are unchan ged with sequelae of the left pacer place. IMPRESSION: Partial improvement of aeration, with findings suggesting improving pulmonary edema pattern, and impr oving small left pleural effusion
[2024-07-09] MEDS: ramipriL 5 MG CAP PO SCH (08:53)
[2024-07-09] MEDS: ESCITALOPRAM 20 MG TAB PO SCH (08:53)
[2024-07-09] MEDS: LIOTHYRONINE SOD 5 MCG TAB PO SCH (08:53)
[2024-07-09] MEDS: allopurinoL 300 MG TAB PO SCH (08:53)
[2024-07-09] MEDS: FUROSEMIDE 40 MG/4 ML VIAL IV SCH (08:54)
[2024-07-09] MEDS: SOTALOL HCL 80 MG TAB PO SCH (08:54)
[2024-07-09] MEDS: POTASSIUM CL SA 10 MEQ TAB PO ONE (08:54)
--- NOTE | 2024-07-09 11:49 | ECHO ---
HEIGHT: 6 ft 2 in WEIGHT: 197 lb 15.602 oz DATE OF STUDY: 07/09/[address]: Aviva Reno MD 2-DIMENSIONAL: YES M.MODE: YES DOPPLER: YES COLOR FLOW: YES TDS: PORTABLE: YES DEFINITY: BUBBLE STUDY: DIAGNOSIS: CONGESTIVE HEART FAILURE EXACERBATION CARDIAC HISTORY: CATHERIZATION: YES SURGERY: NO PROSTHETIC VALVE: NO PACEMAKER: YES MEASUREMENTS (cm) DIASTOLIC (NORMALS) SYSTOLIC (NORMALS) IVSd 1.1 (0.6-1.2) LA Diam 4.3 (1.9-4.0) LVEF 35-40% LVIDd 3.7 (3.5-5.7) LVIDs 2.9 (2.0-3.5) %FS 22% LVPWd 1.2 (0.6-1.2) Ao Diam 3.2 (2.0-3.7) 2 DIMENSIONAL ASSESSMENT: RIGHT ATRIUM: NORMAL LEFT ATRIUM: MILDLY DILATED RIGHT VENTRICLE: NORMAL, PACEMAKER LEFT VENTRICLE: NORMAL TRICUSPID VALVE: MODERATE TRICUSPID REGURGITATION MITRAL VALVE: MILD MITRAL REGURGITATION PULMONIC VALVE: NORMAL AORTIC VALVE: MILD AORTIC REGURGITATION PERICARDIAL EFFUSION: NONE AORTIC ROOT: NORMAL LEFT VENTRICULAR WALL MOTION: MODERATE GLOBAL HYPOKINESIS WITH (APICAL/ SEPTAL AND APICAL) VIZCARRA SEVERE HYPOKINESIS DOPPLER/COLOR FLOW: DIASTOLIC DYSFUNCTION COMMENTS: 1. MODERATELY REDUCED LEFT VENTRICULAR SYSTOLIC FUNCTION, EJECTION FRACTION 35-40%, WALL MOTION ABNORMALITIES ABOVE 2. DIASTOLIC DYSFUNCTION 3. PULMONARY HYPERTENSION (RIGHT VENTRICULAR SYSTOLIC PRESSURE 45 mmHg PLUS RIGHT ATRIAL PRESSURE) TECHNOLOGIST: MANJIT SCHOFIELD
--- NOTE | 2024-07-09 12:34 | EKG ---
Test Date: 2024-07-08 Test Time: 23:03:51 Shipping/Receiving Manager: MAJOR MEASUREMENT RESULTS: Intervals: Rate: 80 [place]: QRSD: 178 QT: 458 QTc: 528 [place]: P: [place]: QRS: 142 T: -4 INTERPRETIVE STATEMENTS: Poor data quality, interpretation may be adversely affected Sinus tachycardia with complete heart block and Ventricular-paced rhythm Abnormal ECG Compared to ECG 05/25/2024 01:53:45 AV block, complete (third-degree) now present Myocardial infarct finding no longer present Electronically Signed On 07-09-24 12:32:38 CDT by Yosvany Blount
--- NOTE | 2024-07-09 15:50 | P.PN ---
Subjective Date of Service: 07/09/24 Chief Complaint: CHF exacerbation Subjective: No chest pain. shortness of breath improving. No nausea or vomiting. No abdominal pain. No obvious bleeding. Looks comfortable in the bed. Objective: General appearance: Alert and comfortable CVS: Normal S1 and S2 Lungs: Clear to auscultation bilaterally Abdomen: Soft, bowel sounds present, no tenderness Extremities: No lower extremity edema Physical Examination - Vital Signs Temperature: 97.6 F Blood Pressure: 120/70 Pulse: 80 Respirations: 15 Pulse Ox (%): 100 - Studies Laboratory Data (last 24 hrs) 07/08/24 07/08/24 07/08/24 23:05 23:05 23:05 WBC 4.60 Hgb 11.8 L Hct 36.8 L Plt Count 150 L PT 16.3 H INR 1.46 Sodium 139 Potassium 3.1 L BUN 18 Creatinine 1.53 H Glucose 93 Assessment And Plan - Plan 1. Acute systolic CHF: Continue Lasix, KAYLI, start beta-lawrence, cardiology consult requested. Echo showed 35 to 40% EF, moderate tricuspid regurgitation, moderate pulmonary hypertension, chest x-ray with volume overload. Wean off oxygen as able. 2. Atrial fibrillation (s/p Watchman, pacemaker): Continue sotalol 3. Hypertension continue ACEI and BB 4. Chronic kidney disease stage III A: Monitor closely. 4. Hypothyroidism: Continue home meds 5. Hypokalemia: Replace and monitor 6. Chronic anemia and thrombocytopenia: Monitor closely 7. BPH 8. Gout 9. GERD 10. CAD, History of [place], History of CVA: Continue home meds. Plan discussed with patient, answered all questions, discussed with nursing staff.
[2024-07-09] MEDS: HEPARIN 5000 UNIT/ML 1 ML VIAL SQ SCH (17:39)
[2024-07-09] MEDS: carvediloL 3.125 MG TAB PO SCH (17:39)
[2024-07-09 18:25] LABS: Arterial Blood Carboxyhemoglob 1.4 % (0-1.5); Blood Gas Oxyhemoglobin 97.2 % (94-97); Blood Gas THB 11.1 g/dl (12-18); Blood O2 Saturation 99.3 % (92-98.5)
[2024-07-10 04:59] LABS: Absolute Eosinophils 0.1 K/uL (0-0.5); Absolute Lymphocytes (CBC) 0.7 K/uL (0.7-4.9); Absolute Monocytes 0.5 K/uL (0.1-1.3); Absolute Neutrophil 3.1 K/uL (1.8-8.0); Basophils % 0.8 % (0-1.3); Eosinophils % 2.7 % (0-4.4); Hematocrit 32.4 % (39.6-49.0); Hemoglobin 10.5 g/dL (13.6-17.9); Lymphocytes % 15.3 % (15.3-44.8); MCH 31.1 pg (27.0-35.0); MCHC 32.5 g/dL (32.0-36.0); MCV 95.7 fL (80-100); MPV 9.3 fL (7.6-11.3); Monocytes % 10.7 % (3.3-12.3); Neutrophils % 70.5 % (41.7-73.7); Platelets 129 thou/uL (152-406); RBC Red Blood Cell Count 3.39 M/uL (4.33-5.43)
[2024-07-10 05:06] LABS: Red Cell Distribution Width 20.7 % (12.1-15.2)
[2024-07-10 05:17] LABS: Anion Gap 3.2 mEq/L (5.0-15.0); Potassium 3.2 mEq/L (3.5-5.1)
[2024-07-10] MEDS: LEVOTHYROXINE SOD 0.088 MG TAB PO SCH (05:29)
[2024-07-10] MEDS: POTASSIUM 25 MEQ EFFERV TAB PO ONE (05:29)
--- NOTE | 2024-07-10 10:59 | P.CNS ---
Date of Consult: 07/10/24 Chief Complaint: CHF exacerbation History of Present Illness: Patient with PMH of HFpEF, AF s/p PM and watchman placement, CAD s/p PCI x2, presented with worsening SOB, VASQUEZ, cough with sputum, denies chest pain, no palpitations, no syncope. Allergies apixaban [From Eliquis] Allergy (Severe, Verified 07/09/24 03:55) Itching/Hives/Rash tramadol Allergy (Severe, Verified 07/09/24 03:55) Nausea/Vomiting clopidogrel [From Plavix] Allergy (Intermediate, Verified 07/09/24 03:55) Itching/Hives/Rash dabigatran etexilate [From Pradaxa] Allergy (Verified 07/09/24 03:55) Hives/Rash rivaroxaban [From Xarelto] Allergy (Verified 07/09/24 03:55) Hives/Rash Adhesives Allergy (Severe, Uncoded 07/09/24 03:55) Rash/Whelps Home medications list reviewed: Yes Home Medications: Allopurinol 300 mg PO DAILY 01/26/24 Escitalopram [Lexapro*] 20 mg PO DAILY 01/26/24 Furosemide [Lasix*] 40 mg PO DAILY 01/26/24 Gabapentin 300 mg PO TID 01/26/24 Levothyroxine [Synthroid*] 0.88 mcg PO DAILY 01/26/24 Meclizine HCl 12.5 mg PO DAILY PRN 01/26/24 Pantoprazole [Protonix Tab*] 40 mg PO DAILY 01/26/24 Ramipril [Altace] 5 mg PO DAILY 01/26/24 Sotalol HCl [Sotalol] 120 mg PO BID 01/26/24 Tamsulosin [Flomax*] 0.4 mg PO BID 01/26/24 Amoxicillin/Potassium Clav [Amox Tr-K Clv 875-125 mg Tab] 1 tab PO BID 07/09/24 Baclofen 10 mg PO DAILYPRN PRN 07/09/24 Cholecalciferol (Vitamin D3) [Vitamin D 5,000 IU Cap*] 1 cap PO DIRECTED 07/09/24 Liothyronine Sodium [Cytomel] 5 mcg PO DAILY 07/09/24 - Past Medical/Surgical History Diabetic: No -: 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 arm -: apendectomy -: pacemaker Psychosocial/ Personal History: Patient is retired, lives at home with his - Family History Father Medical History: Heart disease, Kidney disease Notes: sacoidosis Mother Medical History: Heart disease Notes: dementia, alzheimers Brother Medical History: Heart disease, Stroke - Social History Smoking Status: Unknown if ever smoked Alcohol use: No CD- Drugs: No Caffeine use: Yes Place of Residence: Home Review of Systems 10-point ROS is otherwise unremarkable Physical Examination Temp Pulse Resp BP Pulse Ox 97.6 F 79 17 143/92 H 100 07/10/24 08:00 07/10/24 09:15 07/10/24 08:00 07/10/24 09:15 07/10/24 08:00 General: Alert, In no apparent distress HEENT: Atraumatic, PERRLA, Mucous membr. moist/pink, EOMI, Sclerae nonicteric Neck: Supple, 2+ carotid pulse no bruit, No LAD, Without JVD or thyroid abnormality Respiratory: Clear to auscultation bilaterally, Normal air movement Cardiovascular: Regular rate/rhythm, Normal S1 S2 Gastrointestinal: Normal bowel sounds, No tenderness Musculoskeletal: No tenderness Integumentary: No rashes Neurological: Normal gait, Normal speech, Normal tone, Normal affect Lymphatics: No axilla or inguinal lymphadenopathy - Problems (1) Acute on chronic combined systolic and diastolic heart failure Current Visit: Yes Status: Acute Plan: Echo shows drop in EF to 35-40% with anterior/septal and apical akinesis agree with Lasix 40 mg IV BID Continue Coreg 3.125 mg po BID Switch ramipril to Entresto 24 mg po BID Consider adding Jardiance 10 mg daily at discharge. continue to monitor input and output and electrolytes. (2) CAD (coronary artery disease) Current Visit: Yes Status: Acute Plan: stable, patient with history of 2 stents in the past, troponin negative outpatient follow up with cardiology to discuss further management. continue ASA 81 mg daily continue lipitor 40 mg daily (3) Atrial fibrillation Onset Date: 03/15/17 Current Visit: No Status: Chronic Plan: currently paced continue Sotalol 80 mg po BID Patient is s/p watchman so continue ASA 81 mg daily. Qualifiers:
--- NOTE | 2024-07-10 16:12 | P.PN ---
Subjective Date of Service: 07/10/24 Chief Complaint: CHF exacerbation Subjective: No chest pain. shortness of breath improving. No nausea or vomiting. No abdominal pain. No obvious bleeding. Looks comfortable in the bed. Objective: General appearance: Alert and comfortable CVS: Normal S1 and S2 Lungs: Clear to auscultation bilaterally Abdomen: Soft, bowel sounds present, no tenderness Extremities: No lower extremity edema Physical Examination - Vital Signs Temperature: 97.8 F Blood Pressure: 121/70 Pulse: 83 Respirations: 17 Pulse Ox (%): 100 Assessment And Plan - Plan 1. Acute systolic CHF: Continue Lasix, KAYLI, beta-lawrence, cardiology consult requested. Echo showed 35 to 40% EF, moderate tricuspid regurgitation, moderate pulmonary hypertension, chest x-ray with volume overload. Wean off oxygen as able. -ABG results reviewed, requested pulm consult 2. Atrial fibrillation (s/p Watchman, pacemaker): Continue sotalol 3. Hypertension continue ACEI and BB 4. Chronic kidney disease stage III A: Monitor closely. 4. Hypothyroidism: Continue home meds 5. Hypokalemia: Replace and monitor 6. Chronic anemia and thrombocytopenia: Monitor closely 7. BPH 8. Gout 9. GERD 10. CAD, History of [place], History of CVA: Continue home meds. 11. Hypokalemia: Replace and monitor. Plan discussed with patient, answered all questions, discussed with nursing staff.
[2024-07-11 05:49] LABS: Absolute Eosinophils 0.1 K/uL (0-0.5); Absolute Lymphocytes (CBC) 0.6 K/uL (0.7-4.9); Absolute Monocytes 0.5 K/uL (0.1-1.3); Absolute Neutrophil 3.6 K/uL (1.8-8.0); Basophils % 0.8 % (0-1.3); Eosinophils % 1.6 % (0-4.4); Hematocrit 35.5 % (39.6-49.0); Hemoglobin 11.5 g/dL (13.6-17.9); MCH 31.1 pg (27.0-35.0); MCHC 32.5 g/dL (32.0-36.0); MCV 95.8 fL (80-100); Monocytes % 10.1 % (3.3-12.3); Neutrophils % 74.5 % (41.7-73.7); Platelets 133 thou/uL (152-406); Red Cell Distribution Width 20.7 % (12.1-15.2)
[2024-07-11 06:08] LABS: Anion Gap 6.3 mEq/L (5.0-15.0); Magnesium 1.6 mg/dL (1.6-2.4); Phosphorus 3.5 mg/dL (2.5-4.9); Potassium 3.3 mEq/L (3.5-5.1)
[2024-07-11] MEDS: MAGNESIUM SULFATE 1 gm IVPB 1 GM/100 ML BAG IV ONE (09:11)
[2024-07-11] MEDS: POTASSIUM CL SA 10 MEQ TAB PO ONE (09:14)
--- NOTE | 2024-07-11 14:39 | P.PN ---
Subjective Date of Service: 07/11/24 Chief Complaint: CHF exacerbation Subjective: No chest pain. shortness of breath improving. No nausea or vomiting. No abdominal pain. No obvious bleeding. Looks comfortable in the bed. Objective: General appearance: Alert and comfortable CVS: Normal S1 and S2 Lungs: Clear to auscultation bilaterally Abdomen: Soft, bowel sounds present, no tenderness Extremities: No lower extremity edema Physical Examination - Vital Signs Temperature: 97.7 F Blood Pressure: 115/66 Pulse: 81 Respirations: 14 Pulse Ox (%): 100 Assessment And Plan - Plan 1. Acute systolic CHF: Continue Lasix, KAYLI, beta-lawrence, cardiology consult on board, appreciate recommendations. Echo showed 35 to 40% EF, moderate tricuspid regurgitation, moderate pulmonary hypertension, chest x-ray with volume overload. Wean off oxygen as able. -ABG results reviewed, requested pulm consult 2. Atrial fibrillation (s/p Watchman, pacemaker): Continue sotalol 3. Hypertension continue ACEI and BB 4. Chronic kidney disease stage III A: Monitor closely. 4. Hypothyroidism: Continue home meds 5. Hypokalemia: Replace and monitor 6. Chronic anemia and thrombocytopenia: Monitor closely 7. BPH 8. Gout 9. GERD 10. CAD, History of [place], History of CVA: Continue home meds. Plan discussed with patient, answered all questions, discussed with nursing staff. 69-year-old patient admitted with acute systolic heart failure, started on IV diuretics, clinically improving, still on oxygen, will try to wean off oxygen, if continues to improve, probably can go home tomorrow, cardiology recommending to start Entresto, this can be given at the time of discharge and stop KAYLI inhibitor. Cardiology also recommending Jardiance as well, will give the prescription at the time of discharge.
[2024-07-11] MEDS ORDERED: ALBUTEROL 2.5 MG/3 ML NEB SOL NEB PRN (14:52)
[2024-07-11] MEDS: ASPIRIN EC 81 MG TAB PO SCH (16:08)
[2024-07-11] MEDS: ATORVASTATIN 20 MG TAB PO SCH (21:14)
[2024-07-12 06:13] LABS: Absolute Eosinophils 0.1 K/uL (0-0.5); Absolute Lymphocytes (CBC) 0.5 K/uL (0.7-4.9); Absolute Monocytes 0.4 K/uL (0.1-1.3); Absolute Neutrophil 2.9 K/uL (1.8-8.0); Basophils % 0.7 % (0-1.3); Eosinophils % 3.1 % (0-4.4); Hematocrit 37.2 % (39.6-49.0); Hemoglobin 12.1 g/dL (13.6-17.9); Lymphocytes % 12.1 % (15.3-44.8); MCH 31.3 pg (27.0-35.0); MCHC 32.4 g/dL (32.0-36.0); MCV 96.6 fL (80-100); MPV 9.4 fL (7.6-11.3); Monocytes % 10.9 % (3.3-12.3); Neutrophils % 73.2 % (41.7-73.7); Nucleated Red Blood Cells % 0.2 % (0-0); Platelets 141 thou/uL (152-406); RBC Red Blood Cell Count 3.85 M/uL (4.33-5.43); Red Cell Distribution Width 20.4 % (12.1-15.2)
[2024-07-12 06:41] VITALS: BMI 22.6
[2024-07-12 06:41] LABS: Anion Gap 6.5 mEq/L (5.0-15.0); Magnesium 1.8 mg/dL (1.6-2.4); Potassium 3.5 mEq/L (3.5-5.1)
--- NOTE | 2024-07-12 07:55 | P.PN ---
Date of Service: 07/12/24 Subjective No new events. Shortness of breath improving. No nausea or vomiting. No abdominal pain. No obvious bleeding. Looks comfortable in the bed. Review of system As per HPI 10 point review of systems otherwise negative Physical Examination - Vital Signs Temperature: 97.5 F Blood Pressure: 112/70 Pulse: 71 Respirations: 16 Pulse Ox (%): 100 Objective: General appearance: Alert and comfortable CVS: Normal S1 and S2 Lungs: Clear to auscultation bilaterally Abdomen: Soft, bowel sounds present, no tenderness Extremities: No lower extremity edema Assessment And Plan - Plan 1. Acute systolic CHF: Continue Lasix, KAYLI, beta-lawrence, cardiology consult on board, appreciate recommendations. add entresto and jardiance for discharge per cardiology. Echo showed 35 to 40% EF, moderate tricuspid regurgitation, moderate pulmonary hypertension, chest x-ray with volume overload. Wean off oxygen as able. ABG results reviewed, appreciate pulmonary recommendations 2. Atrial fibrillation (s/p Watchman, pacemaker): Continue sotalol 3. Hypertension continue ACEI and BB 4. Chronic kidney disease stage III A: Appears back to baseline 4. Hypothyroidism: Continue home meds 5. Hypokalemia: Resolved 6. Chronic anemia and thrombocytopenia: Monitor closely 7. BPH 8. Gout 9. GERD 10. CAD, History of CT, History of CVA: Continue home meds. Plan discussed with patient, answered all questions, discussed with nursing staff. DVT prophylaxis with SCDs
[2024-07-12 09:32] LABS: Anisocytosis 1+; Blood Morphology Comment NOTED (NOT SEEN); White Blood Cell Scan OK (OK)
[2024-07-12 09:33] LABS: Platelet Estimate DECR
[2024-07-12] MEDS: POTASSIUM CL SA 10 MEQ TAB PO ONE (10:13)
[2024-07-12] MEDS: MAGNESIUM SULFATE 1 gm IVPB 1 GM/100 ML BAG IV ONE (10:15)
--- NOTE | 2024-07-12 11:21 | P.CNS ---
Date of Consult: 07/12/24 Reason for Consult: Respiratory failure pulmonary fibrosis Chief Complaint: Shortness of breath History of Present Illness: Patient is 69 years of age has been having problems for the past week he is requiring constant oxygen ended up here in the hospital worsening dyspnea denies any cough or phlegm patient has never smoked history of congestive heart failure no prior history of pulmonary complaints Allergies apixaban [From Eliquis] Allergy (Severe, Verified 07/09/24 03:55) Itching/Hives/Rash tramadol Allergy (Severe, Verified 07/09/24 03:55) Nausea/Vomiting clopidogrel [From Plavix] Allergy (Intermediate, Verified 07/09/24 03:55) Itching/Hives/Rash dabigatran etexilate [From Pradaxa] Allergy (Verified 07/09/24 03:55) Hives/Rash rivaroxaban [From Xarelto] Allergy (Verified 07/09/24 03:55) Hives/Rash Adhesives Allergy (Severe, Uncoded 07/09/24 03:55) Rash/Whelps Home Medications: Allopurinol 300 mg PO DAILY 01/26/24 Escitalopram [Lexapro*] 20 mg PO DAILY 01/26/24 Furosemide [Lasix*] 40 mg PO DAILY 01/26/24 Gabapentin 300 mg PO TID 01/26/24 Levothyroxine [Synthroid*] 0.88 mcg PO DAILY 01/26/24 Meclizine HCl 12.5 mg PO DAILY PRN 01/26/24 Pantoprazole [Protonix Tab*] 40 mg PO DAILY 01/26/24 Ramipril [Altace] 5 mg PO DAILY 01/26/24 Sotalol HCl [Sotalol] 120 mg PO BID 01/26/24 Tamsulosin [Flomax*] 0.4 mg PO BID 01/26/24 Amoxicillin/Potassium Clav [Amox Tr-K Clv 875-125 mg Tab] 1 tab PO BID 07/09/24 Baclofen 10 mg PO DAILYPRN PRN 07/09/24 Cholecalciferol (Vitamin D3) [Vitamin D 5,000 IU Cap*] 1 cap PO DIRECTED 07/09/24 Liothyronine Sodium [Cytomel] 5 mcg PO DAILY 07/09/24 - Past Medical/Surgical History Diabetic: No -: 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 arm -: apendectomy -: pacemaker Psychosocial/ Personal History: Patient is retired, lives at home with his - Family History Father Medical History: Heart disease, Kidney disease Notes: sacoidosis Mother Medical History: Heart disease Notes: dementia, alzheimers Brother Medical History: Heart disease, Stroke - Social History Smoking Status: Unknown if ever smoked Alcohol use: No CD- Drugs: No Caffeine use: Yes Place of Residence: Home Review of Systems 10-point ROS is otherwise unremarkable General: Weakness Respiratory: Shortness of Breath Physical Examination Temp Pulse Resp BP Pulse Ox 97.7 F 82 16 129/74 95 07/12/24 08:00 07/12/24 10:15 07/12/24 08:00 07/12/24 10:15 07/12/24 08:00 General: Alert, Oriented x3 Respiratory: Clear to auscultation bilaterally, Diminished Cardiovascular: No edema, Regular rate/rhythm, Normal S1 S2 Gastrointestinal: Normal bowel sounds, Soft and benign - Problems (1) Pulmonary fibrosis Current Visit: Yes Status: Acute Plan: Patient is 69 years of age admitted with progressive dyspnea he has a history of congestive heart failure ejection fraction has been low also has diastolic dysfunction pulmonary hypertension extensive pulmonary fibrosis seems to have progressed in the past few months patient has never smoked trial of some steroids repeat CT scan of the chest hypoxic hypercapnic was admitted with lower extremity edema better on Lasix history of A-fib stents before very alert oriented responsive cooperative has a history of thyroid cancer add long-acting bronchodilators saturation is 100% on 2 L
[2024-07-12] MEDS: predniSONE 20 MG TAB PO SCH (11:27)
--- NOTE | 2024-07-12 14:04 | RAD REPORT ---
EXAMINATION: Thorax Wo Con CLINICAL INDICATION: Male, 69 years old. Pulmonay fibrosis TECHNIQUE: Routine CT scan of the chest without intravenous contrast. One or more of the following do se reduction techniques were used: Automated exposure control, adjustment of the mA and/or kV according to patient size, and/or iterative reconstruction. Unless otherwise specified, incidental fi ndings do not require dedicated imaging follow-up. [id number]. COMPARISON: Chest radiograph 07/06/2024, chest CT 01/20/2024 FINDINGS: LOWER NECK: Visualized thyroid gland and soft tissues are normal. Left upper chest wall pacemaker. MEDIASTINUM AND LYMPH NODES: No mediastinal mass or fluid collection. Normal size mediastinal, hilar, and axillary lymph nodes. THORACIC AORTA: Ascending thoracic aortic aneurysm measuring 4.1 cm. PULMONARY ARTERIES: Caliber is within normal limits. HEART: Mild cardiomegaly. Moderate coronary artery calcifications.No significant pericardial effusion . Atrial appendage occlusion device. LUNGS AND AIRWAYS: Scarring and architectural distortion in the lingula and left lower lobe.Scattered calcified pulmonary nodules. PLEURA: Left pleural thickening is unchanged. No pneumothorax. OSSEOUS STRUCTURES AND CHEST WALL: No fracture or suspicious osseous lesions. UPPER ABDOMEN: No acute abnormalities.Cholecystectomy Annika-en-Y gastric bypass. IMPRESSION: No acute findings in the chest. Chronic changes as noted above.
[2024-07-13 06:12] LABS: Absolute Lymphocytes (CBC) 0.3 K/uL (0.7-4.9); Absolute Monocytes 0.1 K/uL (0.1-1.3); Absolute Neutrophil 3.6 K/uL (1.8-8.0); Basophils % 0.2 % (0-1.3); Eosinophils % 0.1 % (0-4.4); Hematocrit 37.9 % (39.6-49.0); Hemoglobin 12.5 g/dL (13.6-17.9); Lymphocytes % 6.5 % (15.3-44.8); MCH 31.8 pg (27.0-35.0); MCV 96.5 fL (80-100); Monocytes % 3.5 % (3.3-12.3); Neutrophils % 89.7 % (41.7-73.7); Nucleated Red Blood Cells % 0.1 % (0-0); Platelets 134 thou/uL (152-406); RBC Red Blood Cell Count 3.92 M/uL (4.33-5.43); Red Cell Distribution Width 20.4 % (12.1-15.2)
[2024-07-13 06:21] LABS: Anisocytosis 1+; Blood Morphology Comment NOTED (NOT SEEN); Platelet Estimate DECR; White Blood Cell Scan OK (OK)
[2024-07-13 06:47] LABS: Anion Gap 7.6 mEq/L (5.0-15.0); Potassium 3.6 mEq/L (3.5-5.1)
[2024-07-13 07:35] LABS: Magnesium 1.9 mg/dL (1.6-2.4)
[2024-07-13] MEDS: ARFORMOTEROL TARTRATE 15 MCG/2 ML VIAL.NEB NEB SCH (07:45)
[2024-07-13] MEDS: POTASSIUM 25 MEQ EFFERV TAB PO ONE (09:38)
[2024-07-13] MEDS: FUROSEMIDE 40 MG TABLET PO SCH (09:39)
[2024-07-13 12:09] VITALS: TEMP 97.7
[2024-07-13 16:03] VITALS: BP 115/69
--- NOTE | 2024-07-13 16:22 | P.PN ---
Date of Service: 07/13/24 Subjective No new complaints. No nausea, vomiting, or abdominal pain. No fevers or chills. Looks comfortable in the bed. Asking to go home Review of system As per HPI 10 point review of systems otherwise negative Physical Examination - Vital Signs Temperature: 97.5 F Blood Pressure: 112/70 Pulse: 71 Respirations: 16 Pulse Ox (%): 100 Objective: General appearance: Alert and comfortable CVS: Normal S1 and S2 Lungs: Clear to auscultation bilaterally Abdomen: Soft, bowel sounds present, no tenderness Extremities: No lower extremity edema Assessment And Plan - Plan 1. Acute systolic CHF: Continue Lasix, KAYLI, beta-lawrence, cardiology consult on board, appreciate recommendations. add entresto and jardiance for discharge per cardiology. Echo showed 35 to 40% EF, moderate tricuspid regurgitation, moderate pulmonary hypertension, chest x-ray with volume overload. Wean off oxygen as able. Switch IV Lasix to p.o. in preparation for home-going. Home O2 eval test pending. Now on p.o. prednisone 2. Atrial fibrillation (s/p Watchman, pacemaker): Continue sotalol 3. Hypertension continue ACEI and BB 4. Chronic kidney disease stage III A: Appears back to baseline 4. Hypothyroidism: Continue home meds 5. Hypokalemia: Resolved 6. Chronic anemia and thrombocytopenia: Monitor closely 7. BPH 8. Gout 9. GERD 10. CAD, History of [place], History of CVA: Continue home meds. Plan discussed with patient, answered all questions, discussed with nursing staff. DVT prophylaxis with SCDs
[2024-07-13 16:57] VITALS: O2SAT 78
--- NOTE | 2024-07-13 17:24 | P.DS ---
Admission Date: 07/09/24 Discharge Date: 07/13/24 Disposition: ROUTINE DISCHARGE Discharge Condition: FAIR Reason for Admission: Shortness of breath Brief History of Present Illness: 69-year-old male with a past medical history of atrial fibrillation (Watchman), chronic combined systolic and diastolic heart failure, history of [place], presence of cardiac pacemaker, chronic kidney disease stage III, gout, hypothyroidism, presenting with shortness of breath for the last week. Associated symptoms include chest pain. Symptoms are exacerbated with exertion. Patient also relates he has had sinus surgery for the fifth time in 4 years. He was started on ciprofloxacin by an infectious disease specialist. He states he has been taking his Lasix at home. He endorses fevers and chills Hospital Course: 69-year-old male who presented with shortness of breath secondary to acute systolic heart failure. Upon admission he was started on IV Lasix and cardiology was consulted. Chest x-ray showed volume overload. Echo revealed EF of 35 to 40% his clinical condition improved over the course of his stay he has been started on Entresto and Jardiance upon discharge. Prior to discharge home OT eval was complete. He has home oxygen set up. Prior to discharge he has agreed for DNR. the remainder of his medical problems are chronic and stay. He is medically optimized for discharge Vital Signs/Physical Exam: Temp Pulse Resp BP Pulse Ox 97.7 F 82 14 115/69 94 07/13/24 16:00 07/13/24 16:00 07/13/24 16:00 07/13/24 16:00 07/13/24 16:00 General: Alert, In no apparent distress, Cachectic HEENT: Normocephalic Neck: Supple Respiratory: Normal air movement Cardiovascular: Normal pulses Capillary refill: <2 Seconds Gastrointestinal: Normal bowel sounds, Soft and benign Musculoskeletal: No swelling Integumentary: No rashes Neurological: Normal speech, Normal strength at 5/5 x4 extr Lymphatics: No axilla or inguinal lymphadenopathy Laboratory Data at Discharge: WBC 4.00 thou/uL (4.3-10.9) L 07/13/24 05:28 Hgb 12.5 g/dL (13.6-17.9) L 07/13/24 05:28 Hct 37.9 % (39.6-49.0) L 07/13/24 05:28 Plt Count 134 thou/uL (152-406) L 07/13/24 05:28 PT 16.3 SECONDS (10-13.0) H 07/08/24 23:05 INR 1.46 07/08/24 23:05 Sodium 132 mEq/L (136-145) L 07/13/24 05:28 Potassium 3.6 mEq/L (3.5-5.1) 07/13/24 05:28 BUN 33 mg/dL (7-18) H 07/13/24 05:28 Creatinine 1.33 mg/dL (0.70-1.30) H 07/13/24 05:28 Glucose 140 mg/dL (74-106) H 07/13/24 05:28 Phosphorus 3.5 mg/dL (2.5-4.9) 07/11/24 05:33 Magnesium 1.9 mg/dL (1.6-2.4) 07/13/24 05:28 Total Bilirubin 0.6 mg/dL (0.2-1.0) 07/09/24 06:18 AST 20 U/L (15-37) 07/09/24 06:18 ALT 19 U/L (16-61) 07/09/24 06:18 Alkaline Phosphatase 121 U/L (45-117) H 07/09/24 06:18 Home Medications: Allopurinol 300 mg PO DAILY 01/26/24 Escitalopram [Lexapro*] 20 mg PO DAILY 01/26/24 Furosemide [Lasix*] 40 mg PO DAILY 01/26/24 Gabapentin 300 mg PO TID 01/26/24 Levothyroxine [Synthroid*] 0.88 mcg PO DAILY 01/26/24 Meclizine HCl 12.5 mg PO DAILY PRN 01/26/24 Pantoprazole [Protonix Tab*] 40 mg PO DAILY 01/26/24 Ramipril [Altace] 5 mg PO DAILY 01/26/24 Sotalol HCl [Sotalol] 120 mg PO BID 01/26/24 Tamsulosin [Flomax*] 0.4 mg PO BID 01/26/24 Amoxicillin/Potassium Clav [Amox Tr-K Clv 875-125 mg Tab] 1 tab PO BID 07/09/24 Baclofen 10 mg PO DAILYPRN PRN 04/23/25 Cholecalciferol (Vitamin D3) [Vitamin D 5,000 IU Cap*] 1 cap PO DIRECTED 07/09/24 Liothyronine Sodium [Cytomel] 5 mcg PO DAILY 07/09/24 Diet: Low sodium Activity: Ad lennie Followup: Jose Aguilar MD [Primary Care Provider] -
== END 2024-07-13 18:15 | disposition home or self-care (01) | DRG 291 ==
LOC: ER 22:53 → ERHOLD 07-09 02:10 → 4TH 07-09 05:08
PROVIDERS: ADMIT Family Medicine; ATTEND Family Medicine
PROC: 4A033R1 Measurement of Arterial Saturation, Peripheral, Percutaneous Approach (ICD-10-PCS; principal; 2024-07-09)
DX: I13.0 Hypertensive heart and chronic kidney disease with heart failure and stage 1 through stage 4 chronic kidney disease, or unspecified chronic kidney disease (principal); I50.43 Acute on chronic combined systolic (congestive) and diastolic (congestive) heart failure; I48.20 Chronic atrial fibrillation, unspecified; R64 Cachexia; N18.31 Chronic kidney disease, stage 3a; E87.6 Hypokalemia; M10.9 Gout, unspecified; E03.9 Hypothyroidism, unspecified; D69.6 Thrombocytopenia, unspecified; I27.20 Pulmonary hypertension, unspecified; I25.2 Old myocardial infarction; J84.10 Pulmonary fibrosis, unspecified; I07.1 Rheumatic tricuspid insufficiency; K21.9 Gastro-esophageal reflux disease without esophagitis; N40.0 Benign prostatic hyperplasia without lower urinary tract symptoms; I25.10 Atherosclerotic heart disease of native coronary artery without angina pectoris; Z66 Do not resuscitate; Z95.0 Presence of cardiac pacemaker; Z88.5 Allergy status to narcotic agent; Z88.8 Allergy status to other drugs, medicaments and biological substances; Z79.890 Hormone replacement therapy; Z79.899 Other long term (current) drug therapy; Z86.73 Personal history of transient ischemic attack (TIA), and cerebral infarction without residual deficits; Z68.25 Body mass index [BMI] 25.0-25.9, adult
CPT/HCPCS: 36415; 36600; 71045; 71250; 80048; 80053; 82805; 82947; 83735; 83880; 84100; 84132; 84484; 85025; 85610; 93005; 93306; 96374; 99285; J1644; J1938; J3475; J7512; J7605

== ENCOUNTER 2024-07-16 21:33 | Inpatient (IN) | payer OTHER ==
[2024-07-16 22:26] LABS: Absolute Eosinophils 0.1 K/uL (0-0.5); Absolute Lymphocytes (CBC) 0.3 K/uL (0.7-4.9); Absolute Monocytes 0.5 K/uL (0.1-1.3); Absolute Neutrophil 4.4 K/uL (1.8-8.0); Basophils % 0.8 % (0-1.3); Eosinophils % 1.1 % (0-4.4); Hematocrit 37.1 % (39.6-49.0); Lymphocytes % 6.4 % (15.3-44.8); MCH 31.2 pg (27.0-35.0); MCHC 32.3 g/dL (32.0-36.0); MCV 96.7 fL (80-100); MPV 9.6 fL (7.6-11.3); Monocytes % 9.3 % (3.3-12.3); Neutrophils % 82.4 % (41.7-73.7); Nucleated Red Blood Cells % 0.2 % (0-0); Platelets 126 thou/uL (152-406); RBC Red Blood Cell Count 3.84 M/uL (4.33-5.43)
--- NOTE | 2024-07-16 22:26 | RAD REPORT ---
EXAMINATION: ONE VIEW CHEST XR CLINICAL INDICATION: CHEST PAIN TECHNIQUE: Frontal chest projection is submitted. Examination is limited by patient positioning and t echnique. COMPARISON: 07/08/2024 FINDINGS: Hazy opacification of the left lower lung has a chronic appearance. Right lung appears grossly clear. The heart is upper limit normal in size. No displaced fractures identified. Dual-lead pacer device present. IMPRESSION: No acute intrathoracic abnormalities.
[2024-07-16 22:32] LABS: Protime INR 1.15
[2024-07-16 22:38] LABS: Albumin 2.8 g/dL (3.4-5.0); Albumin/Globulin Ratio 0.7 (1.1-1.8); Anion Gap 9.8 mEq/L (5.0-15.0); Bilirubin Direct 0.3 mg/dL (0-0.2); Bilirubin Indirect, Calculated 0.3 mg/dL (0.2-0.8); Bilirubin Total 0.6 mg/dL (0.2-1.0); Globulin 3.9 g/dL (2.3-3.5); Magnesium 2.3 mg/dL (1.6-2.4); Potassium 3.8 mEq/L (3.5-5.1); Protein, Total 6.7 g/dL (6.4-8.2); Troponin High Sensitivity 27.1 pg/mL (<58.9)
[2024-07-16] MEDS ORDERED: MIDODRINE HCL 5 MG TABLET ONE (22:52)
[2024-07-16] MEDS ORDERED: ALBUMIN HUMAN 25% 100 ML IV ONE (22:53)
[2024-07-16] MEDS ORDERED: NOREPINEPHRINE BITARTRATE/D5W 4 MG/250 ML BAG IV ONE (23:16)
[2024-07-17] MEDS ORDERED: ALBUMIN HUMAN 25% 100 ML IV ONE (00:01)
--- NOTE | 2024-07-17 00:23 | ER ---
Nurse's Notes [facility] Name: Ángel Haddad Age: 69 yrs Sex: Male : 1955 Arrival Date: 07/16/2024 Time: 21:33 Bed 8 Private MD: Diagnosis: Acute on chronic renal failure, moderate dehydration, hypovolemia and hypotension;Acute hypovolemic shock. Altered mental status Presentation: 07/16 21:52 Chief complaint: EMS states: c/o generalized weakness since sunday, low bp on scene. al5 Coronavirus screen: At this time, the client does not indicate any symptoms associated with coronavirus-19. Ebola Screen: No symptoms or risks identified at this time. Initial Sepsis Screen: Does the patient meet any 2 criteria? Systolic BP < 90 mmHg. No. Patient's initial sepsis screen is negative. Does the patient have a suspected source of infection? No. Patient's initial sepsis screen is negative. Risk Assessment: Do you want to hurt yourself or someone else? Patient reports no desire to harm self or others. Note patient hx of chf. patient recently discharged from hospital on sunday. Onset of symptoms was July 13, 2024. 21:52 Method Of Arrival: EMS: [facility] al5 21:52 Acuity: MARGO 3 al5 21:52 Care prior to arrival: Medication(s) given: Normal saline infusion, 500 mL, IV al5 initiated. 20 GA, in the left forearm, Glucose check: 142. Triage Assessment: 21:54 General: Appears in no apparent distress. comfortable, Behavior is calm, cooperative. al5 Pain: Denies pain. EENT: No signs and/or symptoms were reported regarding the EENT system. Neuro: Level of Consciousness is awake, alert, obeys commands, Oriented to person, place, time, situation. Cardiovascular: Capillary refill < 3 seconds Patient's skin is warm and dry. Rhythm is Respiratory: Airway is patent Respiratory effort is even, unlabored, Respiratory pattern is regular, symmetrical, patient on 2 L nasal cannula. GI: Abdomen is flat, non-distended. : No signs and/or symptoms were reported regarding the genitourinary system. Derm: Skin is intact, Skin is pink, warm \T\ dry. normal. Musculoskeletal: No signs and/or symptoms reported regarding the musculoskeletal system. Historical: - Allergies: 21:53 Adhesives; al5 21:53 apixaban; al5 21:53 CLOPIDOGREL; al5 21:53 Eliquis; al5 21:53 Plavix; al5 21:53 tramadol; al5 - Home Meds: 21:53 tamsulosin 0.4 mg Oral capsule daily [Active]; sumatriptan succinate 100 mg Oral tablet al5 [Active]; sotalol 120 mg Oral tablet 2 times per day [Active]; ramipril 10 mg Oral capsule daily [Active]; levothyroxine 100 mcg tablet daily [Active]; - PMHx: 21:53 Atrial Fib; CVA; kidney failure; Myocardial infarction; Pace maker; al5 - PSHx: 21:53 Appendectomy; Cholecystectomy; Coronary Angioplasty; pacemaker; al5 - Immunization history:: Adult Immunizations up to date. - Infectious Disease History:: Denies. - Social history:: Smoking status: unknown. - Family history:: not pertinent. Screenin:58 [facility] ED Fall Risk Assessment (Adult) History of falling in the last 3 months, al5 including since admission No falls in past 3 months (0 pts) Confusion or Disorientation No (0 pts) Intoxicated or Sedated No (0 pts) Impaired Gait Yes (1 pt) Mobility Assist Device Used Yes (1 pt) Altered Elimination Yes (1 pt) Score/Fall Risk Level 3 or more points = High Risk Oriented to surroundings, Maintained a safe environment, Hourly rounding (assess needs \T\ fall precautionary measures) done, Utilized family, sitter, or virtual refinery operator assistant as indicated. Abuse screen: Denies threats or abuse. Denies injuries from another. Nutritional screening: No deficits noted. Tuberculosis screening: No symptoms or risk factors identified. Assessment: 21:56 Reassessment: see triage assessment. al5 23:45 Reassessment: Patient appears in no apparent distress at this time. No changes from al5 previously documented assessment. Patient and/or family updated on plan of care and expected duration. Pain level reassessed. Patient is alert, oriented x 3, equal unlabored respirations, skin warm/dry/pink. 05 00:54 Reassessment: Patient appears in no apparent distress at this time. No changes from al5 previously documented assessment. Patient and/or family updated on plan of care and expected duration. Pain level reassessed. Patient is alert, oriented x 3, equal unlabored respirations, skin warm/dry/pink. 02:08 Reassessment: Patient appears in no apparent distress at this time. No changes from al5 previously documented assessment. Patient and/or family updated on plan of care and expected duration. Pain level reassessed. Patient is alert, oriented x 3, equal unlabored respirations, skin warm/dry/pink. Vital Signs: 07/16 21:52 BP 82 / 57; Pulse 82; Resp 16; Temp 97.6; Pulse Ox 98% on 2 lpm NC; Weight 85.28 kg; al5 Height 6 ft. 2 in. ; 22:00 BP 103 / 66; Pulse 83; Resp 16; Pulse Ox 100% on 2 lpm NC; al5 22:45 BP 85 / 55; Pulse 79; Resp 14; Pulse Ox 100% on 2 lpm NC; al5 23:11 BP 84 / 57; Pulse 79; Resp 13; Pulse Ox 100% on 2 lpm NC; al5 23:30 BP 119 / 76; Pulse 80; Resp 15; Pulse Ox 100% on 2 lpm NC; al5 07/17 00:15 BP 110 / 74; Pulse 84; Resp 14; Pulse Ox 100% on 2 lpm NC; al5 01:00 BP 116 / 75; Pulse 80; Resp 13; Pulse Ox 100% on 2 lpm NC; al5 01:33 BP 117 / 78; Pulse 82; Resp 11; Pulse Ox 100% on 2 lpm NC; al5 02:00 BP 110 / 72; Pulse 84; Resp 13; Pulse Ox 100% on 2 lpm NC; al5 07/16 21:52 Body Mass Index 24.14 (85.28 kg, 187.96 cm) al5 Zaleski Coma Score: 00:15 Eye Response: spontaneous(4). Motor Response: obeys commands(6). Verbal Response: sp4 oriented(5). Total: 15. ED Course: 07/16 21:49 Patient arrived in ED. vk 21:53 Jacob Gould MD is Attending Physician. sp4 21:55 Arm band placed on right wrist. Patient placed in the treatment room, in view of staff al5 members, on oxygen, on shelter monitor, on pulse oximetry. 21:58 Patient has correct armband on for positive identification. Bed in low position. Call al5 light in reach. Side rails up X2. Provided Education on: plan of care. 21:58 Maintain EMS IV. Dressing intact. Good blood return noted. Site clean \T\ dry. Gauge \T\ al 5 site: 20G LFA. Flushed with 10 mL NS. 22:12 XRAY Chest (1 view) In Process Unspecified. EDMS 22:13 Triage completed. al5 23:46 Assisted provider with central line placement. Set up central line tray. Triple lumen al5 line placed in right internal jugular. Line placed by Angeles Daly tank wagon operator verified by CXR, blood return, Dressed with 4X4s, Tegaderm, Blood was collected. Patient tolerated well. Before procedure, did Practitioner(s) obtain informed consent? Yes. Patient \T\ family education about procedure, CLABSI prevention and S/S of infection? Yes. Time-out/Briefing performed prior to start of procedure? Yes. Was handwashing/sanitizing done immediately prior to procedure? Yes. Was patient positioned to in a way to prevent air embolism? Yes. Was procedure site sterilized? Yes, with chlorhexidine. Was the site allowed to dry? Yes. Was local anesthetic and/or sedation utilized? Yes. During the procedure, did the Practitioner(s) maintain a sterile field? Yes. Were unused ports clamped during insertion? Yes. Was a 2nd qualified MD obtained after 3 unsuccessful insertion attempts? No. Was blood aspirated from each lumen? Yes. After the procedure, did the Practitioner(s) clean the site and apply a sterile dressing? Yes. 23:49 Angeles Daly, KAROL is Primary Nurse. al5 07/17 00:06 Chest Single View XRAY In Process Unspecified. EDMS 00:21 Mariaelena Soto MD is Hospitalizing Provider. sp4 02:14 Patient admitted, IV remains in place. al5 Administered Medications: 07/16 23:12 Drug: Albumin IVPB 25 grams 100 ml IVPB once; (Note: Albumin 25% concentration) Volume: al5 100 ml; Route: IVPB; Site: left forearm; 07/17 00:34 Follow up: Response: No adverse reaction; IV Status: Completed infusion; IV Intake: al5 100ml 07/16 23:15 Not Given (patient unable to stay alert to take medicationn): midodrine 5 mg PO once vc1 07/17 00:24 Drug: Albumin IVPB 25 grams 100 ml IVPB once; (Note: Albumin 25% concentration) Volume: rg5 100 ml; Route: IVPB; Site: left forearm; :35 Follow up: IV Status: Completed infusion; IV Intake: 100ml al5 00:34 Drug: NS 0.9% IV 1000 ml IV at 125 ml/hr Per protocol; to be given as a bolus over 60 al5 minutes Route: IV; Rate: 125 ml/hr; Site: right jugular; :34 Follow up: IV Status: Infusion continued upon admission al5 04:17 Not Given (Patient Refused): norepinephrine0.1 mcg/kg/min IV at calculated rate See al5 Administration Instructions; (Standard concentration 4 mg / 250 mL D5W); Recommended max rate 3 mcg/kg/min; Titrate 0.05 mcg/kg/min as often as every 5 minutes to achieve goal (see titration policy); Goal parameter MAP greater than 65 mmHg. Medication: 07/16 21:57 VIS not applicable for this client. al5 Intake: 07/17 00:34 IV: 100ml; Total: 100ml. al5 01:35 IV: 100ml; Total: 200ml. al5 Outcome: 00:22 Decision to Hospitalize by Provider. sp4 05:13 Admitted to Med/surg accompanied by tech, via stretcher, room 210, with chart, al5 05:13 Condition: stable 05:13 Instructed on the need for admit, 05:13 Patient left the ED. al5 Signatures: Dispatcher [employer] EDMS Jacob Gould MD MD sp4 Brynn Garcia Rommel, RN RN rg5 Angeles Daly RN RN al5 Devi Jaramillo RN vc1 Corrections: (The following items were deleted from the chart) 02:13 07/16 23:46 Reassessment: Patient appears in no apparent distress at this time. No al5 changes from previously documented assessment. Patient and/or family updated on plan of care and expected duration. Pain level reassessed. Patient is alert, oriented x 3, equal unlabored respirations, skin warm/dry/pink. al5 05/01 02:14 07/16 21:58 No provider procedures requiring assistance completed. al5 al5
--- NOTE | 2024-07-17 00:23 | EDPHYS ---
Physician Documentation [facility] Name: Ángel Haddad Age: 69 yrs Sex: Male : 1955 Arrival Date: 07/16/2024 Time: 21:33 Bed 8 Private MD: ED Physician Jacob Gould HPI: 07/16 21:53 This 69 yrs old Male presents to ER via Unassigned with complaints of gen sp4 weakness , . 07/17 00:13 With a history of atrial fibrillation history of Watchman procedure history of systolic sp4 and diastolic heart failure history of prior MS history of AICD, chronic kidney disease stage III, gout hypothyroidism presents with complaint of acute generalized weakness associated with low blood pressure. EMS reported patient was hypotensive 88/50 and administered half a liter IV fluids. Patient was just admitted here for heart failure from 07/09/2024 and released on 07/13/2024. During admission patient had echocardiogram that revealed EF of 35 to 40%. He was started on Entresto and Jardiance and given IV diuresis with Lasix. Patient's home medications include allopurinol 300 daily, escitalopram 20 mg daily, Lasix 40 mg daily, gabapentin 300 mg 3 times daily, levothyroxine 0.88 mg p.o. daily, meclizine 12.5 mg daily, pantoprazole 40 mg daily, ramipril 5 mg daily, sotalol 120 mg twice daily, tamsulosin 0.4 mg twice daily, amoxicillin twice a day, baclofen p.o. daily, cholecalciferol daily, Cytomel 5 mcg p.o. daily. Historical: - Allergies: 07/16 21:53 Adhesives; al5 21:53 apixaban; al5 21:53 CLOPIDOGREL; al5 21:53 Eliquis; al5 21:53 Plavix; al5 21:53 tramadol; al5 - Home Meds: 21:53 tamsulosin 0.4 mg Oral capsule daily [Active]; sumatriptan succinate 100 mg Oral tablet al5 [Active]; sotalol 120 mg Oral tablet 2 times per day [Active]; ramipril 10 mg Oral capsule daily [Active]; levothyroxine 100 mcg tablet daily [Active]; - PMHx: 21:53 Atrial Fib; CVA; kidney failure; Myocardial infarction; Pace maker; al5 - PSHx: 21:53 Appendectomy; Cholecystectomy; Coronary Angioplasty; pacemaker; al5 - Immunization history:: Adult Immunizations up to date. - Infectious Disease History:: Denies. - Social history:: Smoking status: unknown. - Family history:: not pertinent. ROS: 07/17 00:15 Constitutional: Negative for fever, chills, and weight loss, positive for generalized sp4 weakness, positive for low blood pressure All other systems are negative, Exam: 00:15 Constitutional: Physically debilitated male, no acute distress, signs of moderate sp4 physical deconditioning. Alert and oriented on arrival. Head/Face: Normocephalic, atraumatic. Eyes: Pupils equal round and reactive to light, extra-ocular motions intact. Lids and lashes normal. Conjunctiva and sclera are not injected. Cornea within normal limits. Periorbital areas with no swelling, redness, or edema. ENT: Nares patent. No nasal discharge, no septal abnormalities noted. Tympanic membranes are normal and external auditory canals are clear. Oropharynx with no redness, swelling, or masses, exudates, or evidence of obstruction, uvula midline. Mucous membranes moist. Neck: Trachea midline, no thyromegaly or masses palpated, and no cervical lymphadenopathy. Supple, full range of motion without nuchal rigidity, or vertebral point tenderness. Chest/axilla: Normal chest wall appearance and motion. Nontender with no deformity. No lesions are appreciated. Cardiovascular: Regular rate and rhythm with a normal S1 and S2. No gallops, murmurs, or rubs. Normal PMI, no JVD. No pulse deficits. Respiratory: Lungs have equal breath sounds bilaterally, clear to auscultation and percussion. No rales, rhonchi or wheezes noted. No increased work of breathing, no retractions or nasal flaring. Abdomen/GI: Soft, with normal bowel sounds. No distension or tympany. No guarding or rebound. No evidence of tenderness throughout. Back: No spinal tenderness. No costovertebral tenderness. Skin: Warm, dry with normal turgor. Normal color with no rashes, no lesions, and no evidence of cellulitis. MS/ Extremity: Pulses equal, no cyanosis. Neurovascular intact. Full, normal range of motion. Neuro: Awake and alert, GCS 15, oriented to person, place, time, and situation. Cranial nerves II-XII grossly intact. Motor strength 5/5 in all extremities. Sensory grossly intact. Psych: Awake, alert, with orientation to person, place and time. Behavior, mood, and affect are within normal limits 00:15 ECG was reviewed by the Attending Physician. EKG 2212 ventricular paced rhythm rate 82. Vital Signs: 07/16 21:52 BP 82 / 57; Pulse 82; Resp 16; Temp 97.6; Pulse Ox 98% on 2 lpm NC; Weight 85.28 kg; al5 Height 6 ft. 2 in. ; 22:00 BP 103 / 66; Pulse 83; Resp 16; Pulse Ox 100% on 2 lpm NC; al5 22:45 BP 85 / 55; Pulse 79; Resp 14; Pulse Ox 100% on 2 lpm NC; al5 23:11 BP 84 / 57; Pulse 79; Resp 13; Pulse Ox 100% on 2 lpm NC; al5 23:30 BP 119 / 76; Pulse 80; Resp 15; Pulse Ox 100% on 2 lpm NC; al5 05/01 00:15 BP 110 / 74; Pulse 84; Resp 14; Pulse Ox 100% on 2 lpm NC; al5 01:00 BP 116 / 75; Pulse 80; Resp 13; Pulse Ox 100% on 2 lpm NC; al5 01:33 BP 117 / 78; Pulse 82; Resp 11; Pulse Ox 100% on 2 lpm NC; al5 02:00 BP 110 / 72; Pulse 84; Resp 13; Pulse Ox 100% on 2 lpm NC; al5 07/16 21:52 Body Mass Index 24.14 (85.28 kg, 187.96 cm) al5 Demian Coma Score: 00:15 Eye Response: spontaneous(4). Motor Response: obeys commands(6). Verbal Response: sp4 oriented(5). Total: 15. Procedures: 07/16 23:42 Central Line: the site was prepped with Betadine, in sterile fashion, a triple lumen sp4 catheter was inserted, in the right internal jugular vein, in 1 attempts. placement was verified, by CXR, by blood return, Ultrasound-guided central line, the site was dressed with 4X4s, Tegaderm, using sterile technique, the patient tolerated the procedure, well, CVL was placed for acute hypotensive episode and unresponsiveness. MDM: 21:54 Medical Screening Exam initiated sp4 07/17 00:08 ED course: EXAMINATION: ONE VIEW CHEST XR CLINICAL INDICATION: CHEST PAIN TECHNIQUE: sp4 Frontal chest projection is submitted. Examination is limited by patient positioning and technique. COMPARISON: 07/08/2024 FINDINGS: Hazy opacification of the left lower lung has a chronic appearance. Right lung appears grossly clear. The heart is upper limit normal in size. No displaced fractures identified. Dual-lead pacer device present. IMPRESSION: No acute intrathoracic abnormalities. 00:16 Differential diagnosis: acute myocardial infarction, acute pericarditis, anxiety, sp4 coronary artery disease chest wall pain, congestive heart failure cholecystitis, Cholelithiasis esophagitis, gastritis. HEART Score: History: Slightly Suspicious (0), ECG: Non specific repolarization disturbance / LBTB / PM (1), Age: > or = 65 years (2), Risk Factors: > or = 3 Risk factors for atherosclerotic disease (2), Troponin: < or = 1 x Normal Limit (0), Total Score = 5. Data reviewed: vital signs, nurses notes, EMS record, old medical records, lab test result(s), EKG, radiologic studies, plain films. ED course: Patient was discussed with Dr. Hobbs who requested admission for hypotension and acute renal failure.. 01:44 ED course: CLINICAL HISTORY: The patient is 69 years old and is Male; Right CVL sp4 placement TECHNIQUE: Frontal view of the chest. COMPARISON: XR Chest dated July 08 2024 FINDINGS: LUNGS: Opacity within the left lower lobe is present. Calcified granulomas are scattered throughout the lungs. Suggestion of scarring in the left midlung is noted. PLEURAL SPACE: Blunting of the left costophrenic angle is noted. No pneumothorax. HEART: The cardiac silhouette is enlarged. MEDIASTINUM: Unremarkable. Normal mediastinal contour. BONES/JOINTS: Unremarkable. No acute fracture. VASCULATURE: Atherosclerosis of the aorta is present. TUBES, LINES AND DEVICES: Right IJ central venous catheter is present with the tip at the SVC/RA junction. Left-sided pacemaker is present. UPPER ABDOMEN: Unremarkable as visualized. IMPRESSION: 1. Right IJ central venous catheter is present with the tip at the SVC/RA junction. 2. Left pleural effusion with likely associated atelectasis/infiltrate.. 07/16 21:54 Order name: Basic Metabolic Panel; Complete Time: 00:07 sp4 07/16 21:54 Order name: CBC with Diff; Complete Time: 00:07 sp4 07/16 21:54 Order name: LFT's; Complete Time: 00:07 sp4 07/16 21:54 Order name: Magnesium; Complete Time: 00:07 sp4 07/16 21:54 Order name: NT PRO-BNP; Complete Time: 00:07 sp4 07/16 21:54 Order name: PT-INR; Complete Time: 00:07 sp4 07/16 21:54 Order name: Troponin HS; Complete Time: 00:07 sp4 07/17 01:05 Order name: CBC with Automated Diff EDMS 07/17 01:05 Order name: Comprehensive Metabolic Panel EDMS 07/17 01:05 Order name: Troponin High Sensitivity EDMS 07/17 01:05 Order name: CBC with Automated Diff EDMS 07/17 01:05 Order name: CBC with Automated Diff EDMS 07/17 01:05 Order name: Comprehensive Metabolic Panel EDMS 07/17 01:05 Order name: Comprehensive Metabolic Panel EDMS 07/17 01:05 Order name: Protime (+INR) EDMS 07/17 01:05 Order name: Protime (+INR) EDMS 07/17 01:05 Order name: Troponin High Sensitivity EDMS 07/17 01:05 Order name: Troponin High Sensitivity EDMS 07/16 21:54 Order name: XRAY Chest (1 view); Complete Time: 00:07 4 07/16 23:42 Order name: Chest Single View XRAY sp4 07/17 01:05 Order name: CONS Physician Consult [facility] 07/16 21:54 Order name: Cardiac monitoring; Complete Time: 22:16 sp4 07/16 21:54 Order name: EKG - Nurse/Tech; Complete Time: 22:16 4 07/16 21:54 Order name: IV Saline Lock; Complete Time: 22:07 4 07/16 21:54 Order name: Labs collected and sent; Complete Time: 22:07 4 07/16 21:54 Order name: O2 Per Protocol; Complete Time: 22:02 sp4 07/16 21:54 Order name: O2 Sat Monitoring; Complete Time: 22:02 4 07/16 23:02 Order name: Central Line Dressing Kit; Complete Time: 23:42 sp4 07/16 23:03 Order name: Central Line Kit; Complete Time: 23:42 sp4 07/16 23:03 Order name: Chlorhexidine prep; Complete Time: 23:42 sp4 07/16 23:03 Order name: Consent for central line completed; Complete Time: 23:48 sp4 07/16 23:03 Order name: Line Caps x3; Complete Time: 23:42 sp4 07/16 23:03 Order name: NS Flushes x3; Complete Time: 23:42 sp4 07/16 23:03 Order name: Sterile Gloves; Complete Time: 23:42 sp4 07/16 23:03 Order name: Sterile Probe Cover; Complete Time: 23:42 sp4 EC/30 22:12 Rate is 82 beats/min. Rhythm is regular, Paced. No ST changes noted. Clinical sp4 impression: No evidence of ischemia. Interpreted by me. Reviewed by me. Administered Medications: 23:12 Drug: Albumin IVPB 25 grams 100 ml IVPB once; (Note: Albumin 25% concentration) Volume: al5 100 ml; Route: IVPB; Site: left forearm; 07/17 00:34 Follow up: Response: No adverse reaction; IV Status: Completed infusion; IV Intake: al5 100ml 07/16 23:15 Not Given (patient unable to stay alert to take medicationn): midodrine 5 mg PO once vc1 07/17 00:24 Drug: Albumin IVPB 25 grams 100 ml IVPB once; (Note: Albumin 25% concentration) Volume: rg5 100 ml; Route: IVPB; Site: left forearm; 01:35 Follow up: IV Status: Completed infusion; IV Intake: 100ml al5 00:34 Drug: NS 0.9% IV 1000 ml IV at 125 ml/hr Per protocol; to be given as a bolus over 60 al5 minutes Route: IV; Rate: 125 ml/hr; Site: right jugular; 01:34 Follow up: IV Status: Infusion continued upon admission al5 04:17 Not Given (Patient Refused): norepinephrine0.1 mcg/kg/min IV at calculated rate See al5 Administration Instructions; (Standard concentration 4 mg / 250 mL D5W); Recommended max rate 3 mcg/kg/min; Titrate 0.05 mcg/kg/min as often as every 5 minutes to achieve goal (see titration policy); Goal parameter MAP greater than 65 mmHg. Disposition: 00:17 Critical Care:. sp4 Disposition Summary: 07/17/24 00:22 Hospitalization Ordered Notes: Hospitalization Status: Inpatient Admission sp4 Provider: Mariaelena Soto Condition: Stable sp4 Problem: new sp4 Symptoms: have improved sp4 Bed/Room Type: Standard sp4 Location: Telemetry/MedSurg (Inpatient)(07/17/24 04:00) Room Assignment: 210(07/17/24 04:00) kl Diagnosis - Acute on chronic renal failure, moderate dehydration, hypovolemia and hypotension sp4 - Acute hypovolemic shock. Altered mental status sp4 Forms: - Medication Reconciliation Form sp4 - SBAR form sp4 - Leadership Thank You Letter sp4 Critical care time excluding procedures: 00:17 Critical care time: Bedside Care: 36 minutes, Consultation: 12 minutes, Family sp4 Intervention: 12 minutes. Total time: 60 minutes Signatures: Dispatcher [employer] EDAnne Jamies, RN RN Jacob Byers MD MD sp4 Jeremie Rubalcava RN RN rg5 Angeles Daly RN RN al5 Devi Jaramillo RN vc1 Corrections: (The following items were deleted from the chart) 07/16 21:54 21:54 BASIC METABOLIC PANEL+C.LAB.BRZ ordered. EDMS EDMS 21:54 21:54 CBC+H.LAB.BRZ ordered. EDMS EDMS 21:54 21:54 HEPATIC FUNCTION+C.LAB.BRZ ordered. EDMS EDMS 21:54 21:54 MAGNESIUM+C.LAB.BRZ ordered. EDMS EDMS 21:54 21:54 PROBNP+C.LAB.BRZ ordered. EDMS EDMS 21:54 21:54 PROTIME (+INR)+COAG.LAB.BRZ ordered. EDMS EDMS 21:54 21:54 Troponin High Sensitivity+C.LAB.BRZ ordered. EDMS EDMS 21:54 21:54 Chest Single View+RAD.RAD.BRZ ordered. EDLA EDLA 07/17 04:00 00:22 Intensive Care Unit sp4 kl 04:00 00:22 sp4 kl
[2024-07-17] MEDS ORDERED: NA CHLORIDE 0.9% 1,000 ML ONE (00:26)
[2024-07-17] MEDS: NA CHLORIDE 0.9% 1,000 ML IV SCH (00:34)
[2024-07-17] MEDS ORDERED: ONDANSETRON 4 MG/2 ML VIAL IV PRN (00:58)
[2024-07-17] MEDS ORDERED: IPRATROPIUM BROM 0.5MG/2.5ML NEB PRN (00:58)
[2024-07-17] MEDS ORDERED: ALBUTEROL 2.5 MG/3 ML NEB SOL NEB PRN (00:58)
[2024-07-17] MEDS ORDERED: ACETAMINOPHEN 500 MG TAB PO PRN (00:58)
--- NOTE | 2024-07-17 01:06 | P.HP ---
Certification for Inpatient Patient admitted to: Inpatient With expected LOS: >2 Midnights Patient will require the following post-hospital care: None Practitioner: I am a practitioner with admitting privileges, knowledge of patient current condition, hospital course, and medical plan of care. Services: Services provided to patient in accordance with Admission requirements found in Title 42 Section 412.3 of the Code of Federal Regulations Patient History Date of Service: 07/17/24 Reason for admission: MORRIS; h/o of HFrEF History of Present Illness: Patient is a 69-year-old gentleman who came to the hospital with lightheadedness and difficulty to arouse. Patient was found to be hypotensive and labs revealed acute renal failure. Patient was started on IV fluids and was also given some albumin. Patient's blood pressure improved, and will monitor renal function closely. At this time, patient will be admitted to the hospital for further evaluation. Patient does have heart failure with reduced ejection fraction with ejection fraction of 40%. Continue with cardiac meds and hold antihypertensives. Continue with sotalol and will hold Entresto as well. Will get Nephrology consultation with Cardiology input. Patient will be admitted for inpatient hospitalization. Allergies apixaban [From Eliquis] Allergy (Severe, Verified 07/09/24 03:55) Itching/Hives/Rash tramadol Allergy (Severe, Verified 07/09/24 03:55) Nausea/Vomiting clopidogrel [From Plavix] Allergy (Intermediate, Verified 07/09/24 03:55) Itching/Hives/Rash dabigatran etexilate [From Pradaxa] Allergy (Verified 07/09/24 03:55) Hives/Rash rivaroxaban [From Xarelto] Allergy (Verified 07/09/24 03:55) Hives/Rash Adhesives Allergy (Severe, Uncoded 07/09/24 03:55) Rash/Whelps Home Medications: Allopurinol 300 mg PO DAILY 01/26/24 Escitalopram [Lexapro*] 20 mg PO DAILY 01/26/24 Furosemide [Lasix*] 40 mg PO DAILY 01/26/24 Gabapentin 300 mg PO TID 01/26/24 Levothyroxine [Synthroid*] 0.88 mcg PO DAILY 01/26/24 Meclizine HCl 12.5 mg PO DAILY PRN 01/26/24 Pantoprazole [Protonix Tab*] 40 mg PO DAILY 01/26/24 Tamsulosin [Flomax*] 0.4 mg PO BID 01/26/24 Baclofen 10 mg PO DAILYPRN PRN 07/09/24 Cholecalciferol (Vitamin D3) [Vitamin D 5,000 IU Cap*] 1 cap PO DIRECTED 07/09/24 Liothyronine Sodium [Cytomel] 5 mcg PO DAILY 07/09/24 Empagliflozin [Jardiance] 10 mg PO DAILY 30 Days #30 tab 07/13/24 Sacubitril/Valsartan [Entresto 24 mg-26 mg Tablet] 1 tab PO BID 30 Days #60 tab 07/13/24 Sotalol HCl [Betapace*] 80 mg PO BID tab 07/13/24 carvediloL [Coreg*] 3.125 mg PO BID 6AM 6PM tab 07/13/24 - Past Medical/Surgical History Diabetic: No -: 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 arm -: apendectomy -: pacemaker Psychosocial/ Personal History: Patient is retired, lives at home with his - Family History Father Medical History: Heart disease, Kidney disease Notes: sacoidosis Mother Medical History: Heart disease Notes: dementia, alzheimers Brother Medical History: Heart disease, Stroke - Social History Smoking Status: Former smoker Alcohol use: No CD- Drugs: No Caffeine use: Yes Review of Systems 10-point ROS is otherwise unremarkable Physical Examination - Vital Signs Temperature: 98 F Blood Pressure: 140/80 Pulse: 80 Respirations: 18 Pulse Ox (%): 95 - Physical Exam General: Alert, In no apparent distress, Oriented x2 HEENT: Atraumatic, PERRLA, Mucous membr. moist/pink, EOMI, Sclerae nonicteric Neck: Supple, 2+ carotid pulse no bruit, No LAD, Without JVD or thyroid abnormality Respiratory: Clear to auscultation bilaterally, Normal air movement Cardiovascular: Regular rate/rhythm, Normal S1 S2, Systolic murmur Gastrointestinal: Normal bowel sounds, Soft and benign, Non-distended, No tenderness, No rebound, No guarding Musculoskeletal: No clubbing, No tenderness, Swelling Integumentary: No rashes Neurological: Normal speech, Normal tone, Sensation intact, Cranial nerves 3-12 intact, Abnormal gait, Abnormal strength Lymphatics: No axilla or inguinal lymphadenopathy - Studies Laboratory Data (last 24 hrs) 07/16/24 07/16/24 07/16/24 22:10 22:10 22:10 WBC 5.30 Hgb 12.0 L Hct 37.1 L Plt Count 126 L PT 13.0 INR 1.15 Sodium 133 L Potassium 3.8 BUN 70 H Creatinine 4.44 H Glucose 132 H Magnesium 2.3 Total Bilirubin 0.6 AST 45 H ALT 75 H Alkaline Phosphatase 106 Assessment & Plan - Problems (Diagnosis) (1) HFrEF (heart failure with reduced ejection fraction) Current Visit: Yes Status: Acute (2) CAD (coronary artery disease) Current Visit: No Status: Acute (3) Pulmonary fibrosis Current Visit: No Status: Acute (4) Renal failure Current Visit: No Status: Acute Qualifiers: Renal failure chronicity: acute on chronic Acute renal failure type: with acute tubular necrosis Chronic kidney disease stage: stage 2 (GFR 60-89) Qualified Code(s): N17.0 - Acute kidney failure with tubular necrosis; N18.2 - Chronic kidney disease, stage 2 (mild) (5) Atrial fibrillation Onset Date: 03/15/17 Current Visit: No Status: Chronic Qualifiers: (6) Depression Onset Date: 03/15/17 Current Visit: No Status: Chronic Qualifiers: (7) HTN (hypertension) Onset Date: 03/15/17 Current Visit: No Status: Chronic (8) History of CVA (cerebrovascular accident) Current Visit: No Status: Chronic (9) Hyperlipidemia Onset Date: 03/15/17 Current Visit: No Status: Chronic Qualifiers: (10) Hypothyroidism Current Visit: No Status: Chronic Qualifiers: (11) BPH (benign prostatic hyperplasia) Onset Date: 03/15/17 Current Visit: No Status: Chronic Qualifiers: - Plan Plan: 1. Acute kidney injury; continue with gentle hydration. Patient on Entresto as well as diuretics. Placed on hold at this time. And discharged on diuretics. Will place on hold and gently hydrate and monitor renal function. Nephrology was consulted renal ultrasound pending. Urinalysis pending as well. 2. Heart failure with reduced ejection fraction; continue with diuretics once renal function stabilizes and once patient's volume status is corrected. Patient's resume blood pressure medications and will continue with getting Cardiology input. Hold Entresto at this time. 3. BPH; continue with Flomax 4. Hypothyroidism; levothyroxine and liothyronine has been started 5. Bicytopenia with thrombocytopenia and anemia; continue monitoring hemoglobin and platelet count. 6. GI/DVT prophylaxis Discharge Plan: Home Plan to discharge in: Greater than 2 days - Advance Directives Does patient have a Living Will: No Does patient have a Durable POA for Healthcare: No - Code Status/Comfort Care Code Status Assessed: Yes Code Status: Full Code Critical Care: No Time Spent Managing PTS Care (In Minutes): 45
[2024-07-17 04:36] VITALS: BMI 24.1
[2024-07-17 05:14] LABS: Absolute Eosinophils 0.1 K/uL (0-0.5); Absolute Lymphocytes (CBC) 0.5 K/uL (0.7-4.9); Absolute Monocytes 0.4 K/uL (0.1-1.3); Absolute Neutrophil 3.8 K/uL (1.8-8.0); Basophils % 0.8 % (0-1.3); Eosinophils % 1.7 % (0-4.4); Hematocrit 35.5 % (39.6-49.0); Hemoglobin 11.6 g/dL (13.6-17.9); Lymphocytes % 11.1 % (15.3-44.8); MCH 31.3 pg (27.0-35.0); MCHC 32.6 g/dL (32.0-36.0); MPV 9.5 fL (7.6-11.3); Monocytes % 8.7 % (3.3-12.3); Neutrophils % 77.7 % (41.7-73.7); Nucleated Red Blood Cells % 0.3 % (0-0); Platelets 114 thou/uL (152-406); RBC Red Blood Cell Count 3.69 M/uL (4.33-5.43); Red Cell Distribution Width 19.6 % (12.1-15.2)
[2024-07-17 05:39] LABS: Albumin 3.6 g/dL (3.4-5.0); Albumin/Globulin Ratio 1.1 (1.1-1.8); Anion Gap 8.9 mEq/L (5.0-15.0); Bilirubin Total 0.6 mg/dL (0.2-1.0); Globulin 3.4 g/dL (2.3-3.5); Potassium 3.9 mEq/L (3.5-5.1)
--- NOTE | 2024-07-17 05:43 | RAD REPORT ---
EXAM: XR Chest, 1 View CLINICAL HISTORY: The patient is 69 years old and is Male; Right CVL placement TECHNIQUE: Frontal view of the chest. COMPARISON: XR Chest dated July 08 2024 FINDINGS: LUNGS: Opacity within the left lower lobe is present. Calcified granulomas are scattered througho ut the lungs. Suggestion of scarring in the left midlung is noted. PLEURAL SPACE: Blunting of the left costophrenic angle is noted. No pneumothorax. HEART: The cardiac silhouette is enlarged. MEDIASTINUM: Unremarkable. Normal mediastinal contour. BONES/JOINTS: Unremarkable. No acute fracture. VASCULATURE: Atherosclerosis of the aorta is present. TUBES, LINES AND DEVICES: Right IJ central venous catheter is present with the tip at the SVC/RA junction. Left-sided pacemaker is present. UPPER ABDOMEN: Unremarkable as visualized. IMPRESSION: 1. Right IJ central venous catheter is present with the tip at the SVC/RA junction. 2. Left pleural effusion with likely associated atelectasis/infiltrate. Electronically signed by: Christina Hodge MD 07/17/2024 12:31 AM T Due to temporary technical issues with the PACS/[employer] reporting system, reports are being jill d by the in-house radiologist without review as a courtesy to ensure prompt reporting the interpreting radiologist is fully responsible for the content of the report. Transcribed Date/Time: 07/17/2024 5:43 AM
[2024-07-17] MEDS ORDERED: BACLOFEN 10 MG TAB PO PRN (09:23)
[2024-07-17] MEDS ORDERED: MECLIZINE HCL 12.5 MG TAB PO PRN (09:23)
--- NOTE | 2024-07-17 09:50 | P.PN ---
Date of Service: 07/17/24 Subjective Patient is still a little lethargic but renal function is improving. Will continue with additional L of fluids and will get renal ultrasound as well. Recent echocardiogram with ejection fraction of 40%. Will gently hydrate and monitor volume status closely. Cardiology consulted as well. Physical Examination - Vital Signs Reviewed - Physical Exam General: Alert, In no apparent distress, Oriented x2 Respiratory: Clear to auscultation bilaterally, Normal air movement Cardiovascular: Regular rate/rhythm, Normal S1 S2, Systolic murmur Gastrointestinal: Normal bowel sounds, Soft and benign, Non-distended, No tenderness, No rebound, No guarding Musculoskeletal: No clubbing, No tenderness, Swelling Integumentary: No rashes Neurological: Generalized weakness but no significant focal deficits Assessment & Plan - Problems (Diagnosis) (1) HFrEF (heart failure with reduced ejection fraction) Current Visit: Yes Status: Acute (2) CAD (coronary artery disease) Current Visit: No Status: Acute (3) Pulmonary fibrosis Current Visit: No Status: Acute (4) Renal failure Current Visit: No Status: Acute Qualifiers: Renal failure chronicity: acute on chronic Acute renal failure type: with acute tubular necrosis Chronic kidney disease stage: stage 2 (GFR 60-89) Qualified Code(s): N17.0 - Acute kidney failure with tubular necrosis; N18.2 - Chronic kidney disease, stage 2 (mild) (5) Atrial fibrillation Onset Date: 03/15/17 Current Visit: No Status: Chronic (6) Depression Onset Date: 03/15/17 Current Visit: No Status: Chronic (7) HTN (hypertension) Onset Date: 03/15/17 Current Visit: No Status: Chronic (8) History of CVA (cerebrovascular accident) Current Visit: No Status: Chronic (9) Hyperlipidemia Onset Date: 03/15/17 Current Visit: No Status: Chronic (10) Hypothyroidism Current Visit: No Status: Chronic (11) BPH (benign prostatic hyperplasia) Onset Date: 03/15/17 Current Visit: No Status: Chronic - Plan Continue with plan of care as mentioned below: 1. Acute kidney injury; continue with gentle hydration. Renal function continues to improve. Will hold Entresto as well as diuretics. Will place on hold and gently hydrate and monitor renal function. Nephrology was consulted renal ultrasound pending. Urinalysis pending as well. 2. Heart failure with reduced ejection fraction; continue with diuretics once renal function stabilizes and once patient's volume status is corrected. Patient's resume blood pressure medications and will continue with getting Cardiology input. Hold Entresto at this time. 3. BPH; continue with Flomax 4. Hypothyroidism; levothyroxine and liothyronine has been started 5. Bicytopenia with thrombocytopenia and anemia; continue monitoring hemoglobin and platelet count. 6. GI/DVT prophylaxis Discharge Plan: Home Plan to discharge in: Greater than 2 days - Advance Directives Does patient have a Living Will: No Does patient have a Durable POA for Healthcare: No - Code Status/Comfort Care Code Status Assessed: Yes Code Status: Full Code Critical Care: No Time Spent Managing PTS Care (In Minutes): 45
[2024-07-17] MEDS: TAMSULOSIN 0.4 MG SR CAP PO SCH (10:21)
[2024-07-17] MEDS: SOTALOL HCL 80 MG TAB PO SCH (10:21)
--- NOTE | 2024-07-17 10:45 | RAD REPORT ---
EXAMINATION: US RENAL CLINICAL INDICATION: Acute renal insufficiency TECHNIQUE: Real-time ultrasonography of the kidneys performed. COMPARISON: May 2024 FINDINGS: Right kidney measures 10 cm with a normal echotexture. Tiny echogenic foci within each kidney. Left kidney measures 10 cm with normal echotexture. No hydronephrosis No gross abnormality bladder. IMPRESSION: Tiny echogenic foci within each kidney may represent nonobstructing calculi No hydronephrosis
--- NOTE | 2024-07-17 11:20 | P.CNS ---
Date of Consult: 07/17/24 Chief Complaint: MORRIS; h/o of HFrEF History of Present Illness: Patient with PMH of combined heart failure, CAD, AF s/p watchman and pacemaker, presented with weakness, fatigue, denies chest pain, no palpitations, no syncope. Allergies apixaban [From Eliquis] Allergy (Severe, Verified 07/09/24 03:55) Itching/Hives/Rash tramadol Allergy (Severe, Verified 07/09/24 03:55) Nausea/Vomiting clopidogrel [From Plavix] Allergy (Intermediate, Verified 07/09/24 03:55) Itching/Hives/Rash dabigatran etexilate [From Pradaxa] Allergy (Verified 07/09/24 03:55) Hives/Rash rivaroxaban [From Xarelto] Allergy (Verified 07/09/24 03:55) Hives/Rash Adhesives Allergy (Severe, Uncoded 07/09/24 03:55) Rash/Whelps Home medications list reviewed: Yes Home Medications: Allopurinol 300 mg PO DAILY 01/26/24 Escitalopram [Lexapro*] 20 mg PO DAILY 01/26/24 Furosemide [Lasix*] 40 mg PO DAILY 01/26/24 Gabapentin 300 mg PO TID 01/26/24 Levothyroxine [Synthroid*] 0.88 mcg PO DAILY 01/26/24 Meclizine HCl 12.5 mg PO DAILY PRN 01/26/24 Pantoprazole [Protonix Tab*] 40 mg PO DAILY 01/26/24 Tamsulosin [Flomax*] 0.4 mg PO BID 01/26/24 Baclofen 10 mg PO DAILYPRN PRN 07/09/24 Cholecalciferol (Vitamin D3) [Vitamin D 5,000 IU Cap*] 1 cap PO DIRECTED 07/09/24 Liothyronine Sodium [Cytomel] 5 mcg PO DAILY 07/09/24 Empagliflozin [Jardiance] 10 mg PO DAILY 30 Days #30 tab 07/13/24 Sacubitril/Valsartan [Entresto 24 mg-26 mg Tablet] 1 tab PO BID 30 Days #60 tab 07/13/24 Sotalol HCl [Betapace*] 80 mg PO BID tab 07/13/24 carvediloL [Coreg*] 3.125 mg PO BID 6AM 6PM tab 07/13/24 - Past Medical/Surgical History Diabetic: No -: 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 arm -: apendectomy -: pacemaker Psychosocial/ Personal History: Patient is retired, lives at home with his - Family History Father Medical History: Heart disease, Kidney disease Notes: sacoidosis Mother Medical History: Heart disease Notes: dementia, alzheimers Brother Medical History: Heart disease, Stroke - Social History Smoking Status: Unknown if ever smoked Alcohol use: No CD- Drugs: No Caffeine use: Yes Place of Residence: Home Review of Systems 10-point ROS is otherwise unremarkable Physical Examination Temp Pulse Resp BP Pulse Ox 98 F 80 18 140/80 95 07/17/24 09:46 07/17/24 09:46 07/17/24 09:46 07/17/24 09:46 07/17/24 09:46 General: Alert, In no apparent distress HEENT: Atraumatic, PERRLA, Mucous membr. moist/pink, EOMI, Sclerae nonicteric Neck: Supple, 2+ carotid pulse no bruit, No LAD, Without JVD or thyroid abnormality Respiratory: Clear to auscultation bilaterally, Normal air movement Cardiovascular: Regular rate/rhythm, Normal S1 S2 Gastrointestinal: Normal bowel sounds, No tenderness Musculoskeletal: No tenderness Integumentary: No rashes Neurological: Normal gait, Normal speech, Normal tone, Normal affect Lymphatics: No axilla or inguinal lymphadenopathy Laboratory Data (last 24 hrs) 07/16/24 07/16/24 07/16/24 22:10 22:10 22:10 WBC 5.30 Hgb 12.0 L Hct 37.1 L Plt Count 126 L PT 13.0 INR 1.15 Sodium 133 L Potassium 3.8 BUN 70 H Creatinine 4.44 H Glucose 132 H Magnesium 2.3 Total Bilirubin 0.6 AST 45 H ALT 75 H Alkaline Phosphatase 106 - Problems (1) Chronic combined systolic and diastolic heart failure Current Visit: Yes Status: Acute Plan: Patient presenting with MORRIS on CKD, looks dehydrated. continue to hold Entresto until kidney function improves continue Coreg 3.125 mg po BID Continue to hold Lasix (2) CAD (coronary artery disease) Current Visit: No Status: Acute Plan: no chest pain, negative troponin continue ASA 81 mg daily (3) Atrial fibrillation Onset Date: 03/15/17 Current Visit: No Status: Chronic Plan: s/p watchman and pacemaker, currently paced continue Sotalol 40 mg po BID continue ASA 81 mg daily Continue to monitor on tele Qualifiers:
--- NOTE | 2024-07-17 11:53 | EKG ---
Test Date: 2024-07-16 Test Time: 22:12:06 Turkey Boner: SULY MEASUREMENT RESULTS: Intervals: Rate: 82 RI: QRSD: 196 QT: 518 QTc: 605 [place]: P: RI: QRS: 140 T: -26 INTERPRETIVE STATEMENTS: Ventricular-paced rhythm Abnormal ECG Compared to ECG 07/08/2024 23:03:51 Sinus tachycardia no longer present AV block, complete (third-degree) no longer present Electronically Signed On 07-17-24 11:52:03 CDT by Yosvany Blount
[2024-07-17] MEDS: GABAPENTIN 300 MG CAP PO SCH (14:32)
--- NOTE | 2024-07-17 17:00 | CON ---
Date of Consultation: 07/17/2024 Consulting Physician: Dr. Soto. Reason For Consultation: Elevated BUN and creatinine, fluid management. History Of Present Illness: This is a pleasant 69-year-old gentleman with significant past medical h istory of hypertension, hyperlipidemia, chronic kidney disease, baseline creatinine 1.3, GFR 58 as of June 2024, CAD status post CABG, CVA, atrial fibrillation, status post ICD, congestive heart failur e, systolic and diastolic dysfunction, ejection fraction on this admission 40%, gastric bypass, pulmo nary hypertension. The patient was in his regular state of health. Apparently according to the jose luis ent has recurrent fall. For that reason, he reported to the hospital. Upon arrival to the hospital, the patient found to have elevation in BUN and creatinine. Creatinine up to 4.4 with GFR of 14. Fo r that reason, we have been consulted. Reviewing the record for the patient. As I mentioned the pat ient back in July 13, few days ago, creatinine 1.3 with GFR of 58. The patient denied taking any no nsteroidal. No recent change in his medication. The patient is out. Patient being on Lasix, no KAYLI inhibitor or ARB. Past Medical History: Include, 1. Chronic kidney disease stage 3, baseline creatinine 1.3, GFR 58 as of June 2024 secondary to card iorenal and renal vascular disease. 2. Thyroid cancer. 3. CVA. 4. CAD, status post CABG. 5. Atrial fibrillation status post ICD. 6. Congestive heart failure, ejection fraction 40%, combined diastolic and systolic. 7. Benign prostate hypertrophy. 8. Gout. Past Surgical History: Include, 1. Cardiac cath. 2. ICD placement. 3. Right eye surgery. 4. Thyroidectomy. 5. Hernia repair. 6. Appendectomy. 7. Nerve recanalization. Home Medications: Include allopurinol, citalopram, Lasix, gabapentin, levothyroxine, meclizine, pant oprazole, Flomax, baclofen, Entresto, sotalol, and carvedilol. Allergies: ELIQUIS, TRAMADOL, PLAVIX, XARELTO, AND ADHESIVE. Family History: Positive for CAD and hypertension. Social History: Ex-smoker. Lives with family. Denied drugs abuse. Review of Systems: Head and Neck: No red eye. No ear pain. GI: Has nausea. No vomiting. : No polyuria, no dysuria, no hematuria. ACCOUNT EXECUTIVE METALWORKING: Not applicable. Respiratory: No shortness of breath. Cardiovascular: No chest pain. No palpitation. Respiratory: No shortness of breath. Neuro: Has recurrent fall. Musculoskeletal: Has low back pain. Endocrine: No polydipsia. Skin: No rash. Physical Examination: Vital Signs: When I saw the patient, blood pressure of 118/68, pulse of 86, afebrile. Chest: Clear to auscultation. Heart: S1, S2. Systolic murmur. Abdomen: Soft, nontender. Extremities: No edema. Neurologic: Alert. No focality. Lab Data: On June 2024, creatinine 1.3, GFR 58. Yesterday upon admission, sodium 133, potassium 3. 8, bicarb 36, BUN 70, creatinine 4.4, GFR of 14, calcium 9.1, magnesium 2.3. Albumin 3.9 today. Sod ium 135, potassium 3.9, bicarb 37, BUN 66, creatinine 3.7, calcium 9.4, GFR of 16. WBC 4.8, hemoglob in 11.6. Urinalysis was negative for infection. Chest x-ray, no congestion. Renal ultrasound, no o bstructive uropathy, no hydronephrosis 12/26. Assessment And Plan: 1. Acute kidney injury secondary to prerenal, secondary to GI loss, superimposed with overdiuresis, n onoliguric. No hyperkalemia or acidosis. I do not see the need to initiate any renal replacement th erapy. I agree with holding the Lasix. We will continue hydration and we will monitor the patient c losely. I will send for basic workup. Obstructive uropathy has been ruled out. 2. Hyponatremia, depletional. Hold Lasix. Continue hydration. 3. Hypokalemia. I am going to be cautious on any supplement given the current kidney function. We w ill monitor. 4. Congestive heart failure. Currently, patient looked to me on the dry side. Hold Lasix. We will follow up the patient. 5. Recurrent fall. Will follow up with primary. Thank you Dr. Soto, for allowing us to participate in the care of your patient. PRESLEY/NATASHA Voice ID: [id number] Report ID: [id number]
[2024-07-18] MEDS: LIOTHYRONINE SOD 5 MCG TAB PO SCH (06:29)
[2024-07-18] MEDS: LEVOTHYROXINE SOD 0.1 MG TAB PO SCH (06:29)
[2024-07-18 07:00] LABS: Absolute Eosinophils 0.1 K/uL (0-0.5); Absolute Lymphocytes (CBC) 0.6 K/uL (0.7-4.9); Absolute Monocytes 0.4 K/uL (0.1-1.3); Absolute Neutrophil 3.1 K/uL (1.8-8.0); Basophils % 0.7 % (0-1.3); Eosinophils % 2.4 % (0-4.4); Hematocrit 35.9 % (39.6-49.0); Hemoglobin 11.6 g/dL (13.6-17.9); Lymphocytes % 13.2 % (15.3-44.8); MCH 31.3 pg (27.0-35.0); MCHC 32.2 g/dL (32.0-36.0); MCV 97.2 fL (80-100); MPV 10.3 fL (7.6-11.3); Monocytes % 9.6 % (3.3-12.3); Neutrophils % 74.1 % (41.7-73.7); Platelets 104 thou/uL (152-406); Red Cell Distribution Width 19.7 % (12.1-15.2)
[2024-07-18 07:04] LABS: PT Prothrombin Time 13.4 SECONDS (10-13.0); Protime INR 1.18
[2024-07-18 07:20] LABS: Albumin/Globulin Ratio 0.9 (1.1-1.8); Bilirubin Total 0.7 mg/dL (0.2-1.0); Globulin 3.5 g/dL (2.3-3.5); Phosphorus 2.4 mg/dL (2.5-4.9); Protein, Total 6.5 g/dL (6.4-8.2); Troponin High Sensitivity 23.2 pg/mL (<58.9); Uric Acid 4.2 mg/dL (3.5-7.2)
[2024-07-18] MEDS: allopurinoL 100 MG TAB PO SCH (08:15)
[2024-07-18] MEDS: PANTOPRAZOLE 40MG TABLET PO SCH (08:15)
[2024-07-18] MEDS: ESCITALOPRAM 20 MG TAB PO SCH (08:15)
[2024-07-18] MEDS: Empagliflozin [Jardiance] 10 MG Tablet *PT OWN MED PO SCH (09:00)
--- NOTE | 2024-07-18 14:39 | P.PN ---
Subjective Date of Service: 07/18/24 Chief Complaint: MORRIS; h/o of HFrEF Subjective: No new changes, No C/O voiced, Tolerating diet, Ambulating, Improving Review of Systems 10-point ROS is otherwise unremarkable Physical Examination - Vital Signs Temperature: 97.3 F Blood Pressure: 115/66 Pulse: 86 Respirations: 18 Pulse Ox (%): 95 - Physical Exam General: Alert, In no apparent distress HEENT: Atraumatic, PERRLA, EOMI Neck: Supple, JVD not distended Respiratory: Clear to auscultation bilaterally, Normal air movement Cardiovascular: Regular rate/rhythm, Normal S1 S2 Gastrointestinal: Normal bowel sounds, No tenderness Musculoskeletal: No tenderness Integumentary: No rashes Neurological: Normal speech, Normal tone, Normal affect Lymphatics: No axilla or inguinal lymphadenopathy - Studies Medications List Reviewed: Yes Assessment And Plan - Current Problems (Diagnosis) (1) Chronic combined systolic and diastolic heart failure Current Visit: Yes Status: Acute Plan: Patient presenting with MORRIS on CKD, looks dehydrated. continue to hold Entresto until kidney function improves continue Coreg 3.125 mg po BID Continue to hold Lasix (2) CAD (coronary artery disease) Current Visit: No Status: Acute Plan: no chest pain, negative troponin continue ASA 81 mg daily (3) Atrial fibrillation Onset Date: 03/15/17 Current Visit: No Status: Chronic Plan: s/p watchman and pacemaker, currently paced continue Sotalol 40 mg po BID continue ASA 81 mg daily Continue to monitor on tele Qualifiers:
--- NOTE | 2024-07-18 21:15 | PN ---
Date of Progress Note: 07/18/2024 Subjective: No overnight event. Creatinine improved to 1.9 from 4.4 on admission. PT, OT. Continu e to hold diuretic. Objective: Vital Signs: Temp 97.3, pulse rate 86, blood pressure 115/66. General: Awake, alert, not in distress. Neck: Supple. No elevated JVD. Heart: Regular rate and rhythm. Normal S1, S2. Chest: Clear to auscultation bilaterally. No rales or wheezes. Abdomen: Soft, nontender. Extremities: No edema. Medications: Include albuterol, allopurinol, baclofen, Jardiance, levothyroxine, pantoprazole, sotal ol, and Flomax. Assessment And Plan: 1. Acute on chronic kidney disease, likely due to overdiuresis and acute tubular necrosis with depres earl, improved. Continue to hold diuretic and Entresto. Renally dose medication. His baseline crea tinine is 1.3 back in early June. 2. Heart failure with reduced ejection fraction, status post automatic implantable cardioverter-defib rillator. Continue to hold Entresto and Lasix until blood pressure improves. Continue Farxiga. 3. BPH. Continue Flomax. 4. Debility. Continue physical therapy, occupational therapy. Thank you for allowing me to participate in patient's care. Total time spent 55 minutes including do cumentation, reviewing medications, and placing orders. JODY Voice ID: [id number] Report ID: [id number]
[2024-07-18 22:45] LABS: UR PROTEIN 33.7 mg/dL (<11.9); Urine Protein/Creatinine Ratio 0.38 ratio (<0.15)
[2024-07-18 23:13] LABS: Specific Gravity 1.017 (1.005-1.030); Sqamous Epithelial None Seen /HPF (None Seen); Urine Bacteria None Seen /HPF (<20); Urine Bilirubin NEGATIVE (Negative); Urine Blood Negative (Negative); Urine Clarity Clear (Clear); Urine Color Yellow (Yellow); Urine Glucose NEGATIVE (Negative); Urine Ketones NEGATIVE (Negative); Urine Micro Reflex YN NO BILL MICROSCOPIC; Urine Nitrite NEGATIVE (Negative); Urine Protein TRACE (Negative); Urine RBC <5 /HPF (None Seen); Urine Urobilinogen 2+ (Normal); Urine WBC <5 /HPF (<5)
[2024-07-19 07:32] LABS: Anion Gap 8.2 mEq/L (5.0-15.0); Phosphorus 2.1 mg/dL (2.5-4.9); Potassium 4.2 mEq/L (3.5-5.1)
[2024-07-19] MEDS: SODIUM PHOSPHATE 30 MM in NA CHLORIDE 0.9% 500 ML IV ONE (08:58)
[2024-07-19 09:45] VITALS: O2SAT 94
[2024-07-19 16:32] VITALS: BP 112/64; TEMP 97.7
[2024-07-21] MEDS ORDERED: VITAMIN D 5,000 UNIT CAP PO SCH (09:00)
== END 2024-07-19 17:15 | disposition home or self-care (01) | DRG 682 ==
LOC: ER 21:33 → 2ND 07-17 00:58
PROVIDERS: ADMIT Hospitalist; ATTEND Hospitalist
DX: N17.0 Acute kidney failure with tubular necrosis (principal); I50.23 Acute on chronic systolic (congestive) heart failure; R57.1 Hypovolemic shock; I13.0 Hypertensive heart and chronic kidney disease with heart failure and stage 1 through stage 4 chronic kidney disease, or unspecified chronic kidney disease; E87.1 Hypo-osmolality and hyponatremia; N18.30 Chronic kidney disease, stage 3 unspecified; D63.1 Anemia in chronic kidney disease; M10.9 Gout, unspecified; I48.91 Unspecified atrial fibrillation; E86.0 Dehydration; F32.A Depression, unspecified; J84.10 Pulmonary fibrosis, unspecified; E87.6 Hypokalemia; E03.9 Hypothyroidism, unspecified; D69.6 Thrombocytopenia, unspecified; N40.0 Benign prostatic hyperplasia without lower urinary tract symptoms; K21.9 Gastro-esophageal reflux disease without esophagitis; I25.10 Atherosclerotic heart disease of native coronary artery without angina pectoris; I25.2 Old myocardial infarction; Z95.1 Presence of aortocoronary bypass graft; Z88.8 Allergy status to other drugs, medicaments and biological substances; Z90.49 Acquired absence of other specified parts of digestive tract; Z86.73 Personal history of transient ischemic attack (TIA), and cerebral infarction without residual deficits; Z79.890 Hormone replacement therapy; Z79.899 Other long term (current) drug therapy; Z95.810 Presence of automatic (implantable) cardiac defibrillator; Z87.891 Personal history of nicotine dependence
CPT/HCPCS: 36415; 36556; 71045; 76770; 80048; 80053; 80069; 80076; 81001; 82550; 82570; 82947; 83735; 83880; 84100; 84156; 84484; 84550; 85025; 85610; 93005; 96365; 96366; 97110; 97116; 97161; 97530; 99285; J7030; J7040; P9047